=== PATIENT | male | born 1935 | race Caucasian/White ===

== ENCOUNTER → 2017-07-13 09:36 | Outpatient (CLI) | payer MEDICARE, SELFPAY ==
[2017-07-13 11:27] LABS: AST(SGOT) 17 U/L (15-37); Alanine Aminotransfer ALT/SGPT 20 U/L (16-61); Albumin, Serum 3.7 g/dL (3.2-5.0); Alkaline Phosphatase 77 U/L (45-117); Anion Gap 9 (5-15); BUN 18 mg/dL (7-18); BUN/Creat Ratio 17.6 RATIO (10-20); Calcium,Total 8.8 mg/dL (8.5-10.1); Chloride 107 mmol/L (98-107); Cholesterol 108 mg/dL (200); Creatinine, Serum 1.02 mg/dL (0.70-1.30); EST Glomerular Filtration Rate 74 mL/min (>60); Est Glom Filt Rate - Afr Amer 90 mL/min (>60); Globulin 3.8 g/dL (2.2-4.2); Glucose 83 mg/dL (74-106); High Density Lipoprotein 52 mg/dL; Potassium 4.3 mmol/L (3.5-5.1); Protein, Total 7.5 g/dL (6.4-8.2); Sodium Level 144 mmol/L (136-145); Triglycerides 79 mg/dL; Very Low Density Lipoprotein 16 mg/dL (5-40)
== END ==
PROVIDERS: Family Provider Family Medicine; PCP Family Medicine
DX: I25.10 Atherosclerotic heart disease of native coronary artery without angina pectoris (principal)
CPT/HCPCS: 36415; 80053; 80061

== ENCOUNTER → 2018-05-31 07:12 | Outpatient (CLI) | payer MEDICARE, SELFPAY ==
[2015-09-11 10:55] VITALS: BMI 24.0
[2018-05-31 08:13] LABS: ALB/GLOB Ratio 1.1 RATIO (0.9-2.4); AST(SGOT) 31 U/L (15-37); Alanine Aminotransfer ALT/SGPT 50 U/L (16-61); Albumin, Serum 3.7 g/dL (3.2-5.0); Alkaline Phosphatase 82 U/L (45-117); Anion Gap 3 (5-15); BUN 13 mg/dL (7-18); BUN/Creat Ratio 11.9 RATIO (10-20); Chloride 109 mmol/L (98-107); Cholesterol 133 mg/dL (200); Creatinine, Serum 1.09 mg/dL (0.70-1.30); EST Glomerular Filtration Rate 69 mL/min (>60); Est Glom Filt Rate - Afr Amer 83 mL/min (>60); Globulin 3.5 g/dL (2.2-4.2); Glucose 95 mg/dL (74-106); High Density Lipoprotein 53 mg/dL; Potassium 4.2 mmol/L (3.5-5.1); Protein, Total 7.2 g/dL (6.4-8.2); Sodium Level 140 mmol/L (136-145); Triglycerides 85 mg/dL; Very Low Density Lipoprotein 17 mg/dL (5-40)
== END ==
PROVIDERS: Family Provider Family Medicine; PCP Family Medicine
DX: I25.10 Atherosclerotic heart disease of native coronary artery without angina pectoris (principal)
CPT/HCPCS: 36415; 80053; 80061

== ENCOUNTER → 2019-09-17 07:06 | Outpatient (CLI) | payer MEDICARE, SELFPAY ==
[2019-09-17 08:28] LABS: Anion Gap 4 (5-15); BUN 22 mg/dL (7-18); BUN/Creat Ratio 19.8 RATIO (10-20); Calcium,Total 9.1 mg/dL (8.5-10.1); Chloride 107 mmol/L (98-107); Creatinine, Serum 1.11 mg/dL (0.70-1.30); EST Glomerular Filtration Rate 67 mL/min (>60); Est Glom Filt Rate - Afr Amer 81 mL/min (>60); Glucose 95 mg/dL (74-106); Potassium 3.8 mmol/L (3.5-5.1); Sodium Level 141 mmol/L (136-145)
== END ==
PROVIDERS: PCP Family Medicine
DX: I10 Essential (primary) hypertension (principal)
CPT/HCPCS: 36415; 80048

== ENCOUNTER → 2021-05-22 08:04 | Outpatient (CLI) | payer MEDICARE, SELFPAY ==
[2021-05-22 08:54] LABS: ALB/GLOB Ratio 1.1 RATIO (0.9-2.4); AST(SGOT) 21 U/L (15-37); Alanine Aminotransfer ALT/SGPT 26 U/L (16-61); Alkaline Phosphatase 66 U/L (45-117); Anion Gap 4 (5-15); BUN 17 mg/dL (7-18); BUN/Creat Ratio 15.2 RATIO (10-20); Calcium,Total 8.8 mg/dL (8.5-10.1); Chloride 106 mmol/L (98-107); Creatinine, Serum 1.12 mg/dL (0.70-1.30); EST Glomerular Filtration Rate 66 mL/min (>60); Est Glom Filt Rate - Afr Amer 80 mL/min (>60); Globulin 3.6 g/dL (2.2-4.2); Glucose 115 mg/dL (74-106); Protein, Total 7.6 g/dL (6.4-8.2); Sodium Level 138 mmol/L (136-145)
== END ==
PROVIDERS: PCP Family Medicine
DX: I25.10 Atherosclerotic heart disease of native coronary artery without angina pectoris (principal)
CPT/HCPCS: 36415; 80053

== ENCOUNTER → 2021-10-23 | Outpatient (CLI) | payer MEDICARE, SELFPAY ==
[2021-10-23 07:05] LABS: Hemoglobin 14.9 g/dL (13.0-16.5); Mean Corp Hgb Conc 33.1 g/dL (32-36); Mean Corpuscular Volume 90.5 fL (80-94); Mean Platelet Vol. 10.3 fl (6.2-12.0); Platelet Count 220 K/mm3 (150-450); RBC Distribution Width CV 13.1 % (11.6-14.6); RBC Distribution Width SD 43.8 fl (35.1-43.9); Red Blood Count 4.97 M/mm3 (4.6-6.2); White Blood Count 10.4 K/mm3 (4.4-11.0)
--- NOTE | 2021-10-23 07:05 | RAD_ITS ---
STUDY: CHEST SERIES--2 VIEWS OF 0711 HOURS 0711 HOURS REASON FOR EXAM: 86-year-old male with a pre-operative chest x-ray series. TECHNIQUE: A standard PA and lateral chest x-ray series was performed per protocol. COMPARISON: 09/11/2015. FINDINGS: Mild demineralization. No other osseous abnormalities. Mild cardiomegaly with a left ventricular cardiac configuration. No interval change in size and configuration of the heart since previous study of 09/03/2015. Single lead pacemaker with distal lead in the region of the intraventricular septum, unchanged since 09/11/2015. No evidence of pulmonary infiltrates, atelectasis, effusion, or pulmonary mass lesions. No pneumonia, pneumonitis or bronchitis. No subdiaphragmatic abnormalities. RAD/Chest PA and Lateral IMPRESSION: 1. No significant interval change since the previous study of 09/03/2015. 2. Mild cardiomegaly with a left ventricular cardiac configuration. 3. Single lead pacemaker with distal lead in the region of the interventricular septum, unchanged since 09/03/2015.. 4. No other active cardiopulmonary disease. 5. Mild demineralization with otherwise normal osseous structures. Electronically Signed: Sai Hollis MD at 1:51 EDT ,
[2021-10-23 07:29] LABS: Anion Gap 5 (5-15); BUN 24 mg/dL (7-18); BUN/Creat Ratio 19.5 RATIO (10-20); Calcium,Total 9.2 mg/dL (8.5-10.1); Chloride 105 mmol/L (98-107); Creatinine, Serum 1.23 mg/dL (0.70-1.30); EST Glomerular Filtration Rate 59 mL/min (>60); Est Glom Filt Rate - Afr Amer 72 mL/min (>60); Glucose 111 mg/dL (74-106); Potassium 4.3 mmol/L (3.5-5.1); Sodium Level 139 mmol/L (136-145)
== END | disposition home or self-care (01) ==
PROVIDERS: PCP Family Medicine
DX: Z01.818 Encounter for other preprocedural examination (principal); Z95.0 Presence of cardiac pacemaker
CPT/HCPCS: 36415; 71046; 80048; 85027

== ENCOUNTER → 2022-08-18 | Outpatient (CLI) | payer MEDICARE, SELFPAY ==
[2022-08-18 08:42] LABS: Cholesterol 118 mg/dL (200); High Density Lipoprotein 58 mg/dL; Triglycerides 74 mg/dL; Very Low Density Lipoprotein 15 mg/dL (5-40)
== END | disposition home or self-care (01) ==
PROVIDERS: PCP Family Medicine
DX: E78.5 Hyperlipidemia, unspecified (principal)
CPT/HCPCS: 36415; 80061

== ENCOUNTER → 2022-08-25 | Outpatient (CLI) | payer MEDICARE, SELFPAY ==
[2022-08-25 12:39] LABS: AST(SGOT) 25 U/L (15-37); Alanine Aminotransfer ALT/SGPT 36 U/L (16-61); Albumin, Serum 3.8 g/dL (3.2-5.0); Alkaline Phosphatase 76 U/L (45-117); Anion Gap 5 (5-15); BUN 18 mg/dL (7-18); Calcium,Total 9.4 mg/dL (8.5-10.1); Chloride 106 mmol/L (98-107); Creatinine, Serum 1.06 mg/dL (0.70-1.30); EST Glomerular Filtration Rate 70 mL/min (>60); Est Glom Filt Rate - Afr Amer 85 mL/min (>60); Globulin 3.7 g/dL (2.2-4.2); Glucose 93 mg/dL (74-106); Potassium 4.1 mmol/L (3.5-5.1); Protein, Total 7.5 g/dL (6.4-8.2); Sodium Level 139 mmol/L (136-145)
== END | disposition home or self-care (01) ==
LOC: BIMLAB 09:56
PROVIDERS: PCP Family Medicine; Visit Provider Family Medicine
DX: I50.9 Heart failure, unspecified (principal)
CPT/HCPCS: 36415; 80053

== ENCOUNTER → 2023-09-21 | Outpatient (CLI) | payer MEDICARE, SELFPAY ==
[2023-09-21 12:19] LABS: Absolute Lymphocyte Count 4.33 X10^3/uL (0.83-4.51); Absolute Neutrophil Count 4.8 X10^3/uL (2.0-7.7); Basophil# 0.07 X10^3/uL; Basophil% 0.7 % (0-1); Hematocrit 48.2 % (40-54); Hemoglobin 14.8 g/dL (13.0-16.5); Lymphocyte # 4.33 X10^3/ul (0.83-4.51); Mean Corp Hgb Conc 30.7 g/dL (32-36); Mean Corpuscular Hgb 27.9 pg (27.0-32.0); Mean Corpuscular Volume 90.9 fL (80-94); Mean Platelet Vol. 11.6 fl (6.2-12.0); Monocyte% 6.9 % (0-10); NRBC Flagged by Analyzer 0 % (0-5); Neutrophil # 4.75 X10^3/uL (2.7-7.7); Neutrophil % 47.1 % (47-70); Platelet Count 240 K/mm3 (150-450); RBC Distribution Width CV 14.2 % (11.6-14.6); RBC Distribution Width SD 47.7 fl (35.1-43.9); White Blood Count 10.1 K/mm3 (4.4-11.0)
[2023-09-21 12:43] LABS: AST(SGOT) 18 U/L (15-37); Alanine Aminotransfer ALT/SGPT 25 U/L (16-61); Albumin, Serum 3.7 g/dL (3.2-5.0); Alkaline Phosphatase 88 U/L (45-117); Anion Gap 4 (5-15); BUN 16 mg/dL (7-18); BUN/Creat Ratio 13.9 RATIO (10-20); Calcium,Total 9.3 mg/dL (8.5-10.1); Chloride 107 mmol/L (98-107); Cholesterol 121 mg/dL (200); Creatinine, Serum 1.15 mg/dL (0.70-1.30); EST Glomerular Filtration Rate 64 mL/min (>60); Est Glom Filt Rate - Afr Amer 77 mL/min (>60); Globulin 3.7 g/dL (2.2-4.2); Glucose 97 mg/dL (74-106); High Density Lipoprotein 45 mg/dL; Potassium 4.5 mmol/L (3.5-5.1); Protein, Total 7.4 g/dL (6.4-8.2); Sodium Level 138 mmol/L (136-145); Triglycerides 84 mg/dL; Very Low Density Lipoprotein 17 mg/dL (5-40)
== END | disposition home or self-care (01) ==
LOC: BIMLAB 09:14
PROVIDERS: PCP Family Medicine; Referring Provider Family Medicine; Visit Provider Family Medicine
DX: I50.9 Heart failure, unspecified (principal)
CPT/HCPCS: 36415; 80053; 80061; 85025

== ENCOUNTER 2023-11-28 08:07 | Emergency (ER) | payer MEDICARE, SELFPAY ==
[2023-11-28 08:08] VITALS: BP 166/86; PULSE 77; RESP 16; TEMP 37; O2SAT 98; BMI 22.3
--- NOTE | 2023-11-28 08:22 | EX.ED.GUMALE ---
HPI History of Present Illness Chief Complaint: Complaint Informant: patient and spouse/S.O. Narrative Narrative: 88-year-old male presenting with difficulty urinating. He feels like he cannot empty and as a result is going more frequently. This occurred 2 days ago and then again overnight along with nocturia. No dysuria, hematuria, fevers, chills, nausea, vomiting, or discomfort in his back. He states he just feels like his bladder is full and he needs to go. Never had this before. No history of prostate problems. Feeling well otherwise. PFSH PFS Medical History Cardiac defibrillator in place Stroke Home Medications ?Medication ?Instructions ?Recorded ?Last Taken ?Type aspirin 81 mg chewable tablet 81 mg PO DAILY@0800 09/11/15 Unknown History nitroglycerin 0.4 mg sublingual 0.4 mg sublingual Q5M PRN Chest 09/11/15 Unknown History tablet Pain simvastatin 40 mg tablet 40 mg PO QHS 09/11/15 Unknown History spironolactone 25 mg tablet 12.5 mg PO DAILY 09/11/15 Unknown History losartan 50 mg tablet mg PO 08/25/22 Unknown History hydroxyzine HCl 25 mg tablet 25 mg PO QHS #10 tabs 07/05/23 Unknown Rx tamsulosin 0.4 mg capsule (Flomax) 0.4 mg PO DAILY #30 caps 11/28/23 Unknown Rx Allergy/AdvReac Type Severity Reaction Status Date / Time No Known Allergies Allergy Verified 11/28/23 08:07 Family History Mother CAD (coronary artery disease) Grandfather CAD (coronary artery disease) Brother Prostate cancer Sister Colon cancer Sister Throat cancer Surgical History H/O cataract removal with insertion of prosthetic lens Social History adopted: No household members: spouse housing: house number of children: 1 current occupational status: retired pets and animals: No Smoking Status: Never smoker second hand exposure: No alcohol intake: current alcohol intake frequency: holidays/special occasions only substance use type: does not use caffeine: Yes (1-2) Type: coffee what type of physical activity do you participate in: walking frequency: daily seatbelt use: always do you feel safe at home: Yes ROS ROS ED Constitutional Constitutional ED: Denies chills or fever(s) Eyes Eyes: Denies change in vision or diplopia ENT ENT ED: Denies rhinorrhea or sore throat Cardiovascular Cardiovascular: Denies chest pain or palpitations Respiratory/Chest Respiratory/Chest: Denies cough or dyspnea Gastrointestinal Gastrointestinal: Denies abdominal pain, diarrhea, nausea or vomiting Genitourinary Genitourinary ED: Reports as per HPI, difficulty urinating and urinary frequency; Denies dysuria, hematuria, scrotal pain or scrotal swelling Musculoskeletal Musculoskeletal: Denies back pain or neck pain Integumentary Denies abscess or rash Neurologic Neurologic: Denies headache(s), paresthesias or weakness Psychiatric Psychiatric: Denies anxiety or suicidal thoughts EXAM Physical Exam Const Vital Signs: 11/28/23 08:08 Temperature 98.6 F Temperature Source Oral Pulse Rate 77 Respiratory Rate 16 Blood Pressure 166/86 H Blood Pressure Mean 112 Pulse Ox 98 Oxygen Delivery Method Room Air Positive well nourished and well developed General Appearance ED: well developed and NAD HEENT Reports moist mucous membranes normocephalic and atraumatic Eyes PERRL and EOMs intact bilaterally Neck full ROM and supple Resp normal respiratory effort and clear to auscultation bilaterally Cardio regular rate, regular rhythm and no murmurs GI non-distended GI Narrative: Some discomfort with palpation over suprapubic area/bladder otherwise benign abdomen. Auscultation: normoactive bowel sounds Palpation: soft; Negative for guarding Back/Spine no CVA tenderness General Back: other FROM Extremity normal to inspection General Extremety ED: Negative for edema, pulses abnormal or tenderness General Extremity: Negative for edema or pulses abnormal Neuro oriented x3, CN's II-XII intact bilaterally and no sensory deficits noted Sensorium / Orientation: awake and alert Motor Exam: strength 5/5 throughout Skin no rashes or lesions noted and no wounds MDM MDM MDM Narrative Medical decision making narrative: Pretreated with Uro-Jet, through the urethral meatus and even finding a because of the patient's foreskin which they stated they were not able to retract. I examined the patient's genitourinary area, penis is nontender, he is uncircumcised and not able to retract the foreskin to even visualize the glans. Therefore it was not forced so as to not cause a paraphimosis. There is no discharge and area is nontender. Nursing was able to get a catheter in and they state that there was a pop when he went through the urethral meatus but not necessarily resistance after that in the area of the prostate. The patient feels much better. He has a normal urinalysis without signs of acute infection. I discussed with Dr. muñiz with urology, who still advises putting the patient on Flomax and have him follow-up in the next 2 weeks, patient given a leg bag and these instructions. Lab Data Attestation: I reviewed the patient's lab results. 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 (urology) Discharge Plan Triage Chief Complaint: Complaint ED Provider: Ye Rogers Dx/Rx/DC Orders Clinical Impression: Acute urinary retention, Acquired phimosis of penis Instructions: ED Agarwal Catheter, Care, ED Phimosis, ED Urinary Retention, Male Prescriptions: New tamsulosin [Flomax] 0.4 mg capsule 0.4 mg PO DAILY Qty: 30 0RF No Action losartan 50 mg tablet PO hydroxyzine HCl 25 mg tablet 25 mg PO QHS Qty: 10 0RF spironolactone 25 MG tablet 12.5 mg PO DAILY simvastatin 40 MG tablet 40 mg PO QHS nitroglycerin 0.4 MG tablet 0.4 mg sublingual Q5M PRN (Reason: Chest Pain) aspirin 81 MG tablet,chewable 81 mg PO DAILY@0800 Primary Care Provider: Abdifatah Beltran Referrals: Abdifatah Beltran DO [Primary Care Provider] - Mark Muñiz MD [Med Staff - Active Staff] - (call for follow up appt) Activity Restrictions/Additional Instructions: Urology recommends that you be seen within 2 weeks, call for an appointment. Print Language: Mauritian Disposition Disposition: Home, Self Care
[2023-11-28 09:09] LABS: Bacteria 0 SEEN /hpf (None Seen); Mucous, Urine 0 SEEN /hpf (<or=2+); Squamous Epithelial Cells - UA 0 SEEN /hpf (0-5); White Blood Cells 0 SEEN /hpf (0-5)
[2023-11-28 09:18] LABS: Color, Urine Yellow (Yellow); Glucose, Dipstick Normal (Normal); Ketone-Dipstick Negative (Negative); Leukocyte Esterase-Dipstick Negative /ul (Negative); Nitrite-Dipstick Negative (Negative); Occult Blood-Urine 25 /ul (Negative); Protein-Dipstick Negative (Negative); Urine Bilirubin Dipstick Negative (Negative); Urine Clarity Clear (Clear); Urine Urobilinogen Normal (Normal)
[2023-11-28] MEDS: Lidocaine Jelly 2% 20 ML Syringe (URO-JET) 1 APPLIC TOPICAL (09:25)
[2023-11-28 09:27] LABS: Red Blood Cells-Urine 0-5 SEEN /hpf (0-5)
[2023-11-28 10:07] VITALS: BP 160/70; PULSE 70; RESP 18; O2SAT 97
[2023-11-28 11:25] VITALS: BP 158/68; PULSE 70; RESP 18; TEMP 36.6; O2SAT 99
== END 2023-11-28 11:30 | disposition home or self-care (01) ==
LOC: ED 09:19
PROVIDERS: Emergency Provider Emergency Medicine; PCP Family Medicine; Visit Provider Emergency Medicine
DX: R33.9 Retention of urine, unspecified (principal); N47.1 Phimosis; Z86.73 Personal history of transient ischemic attack (TIA), and cerebral infarction without residual deficits
CPT/HCPCS: 51702; 81001; 99283

== ENCOUNTER → 2023-12-20 | Outpatient (CLI) | payer MEDICARE, SELFPAY | END | disposition home or self-care (01) | LOC: LABSPEC 16:27 | PROVIDERS: PCP Family Medicine; Referring Provider Nurse Practitioner; Visit Provider Nurse Practitioner | DX: R33.8 Other retention of urine (principal) | CPT/HCPCS: 87086 ==

== ENCOUNTER → 2024-01-04 | Outpatient (CLI) | payer MEDICARE, SELFPAY ==
--- NOTE | 2024-01-04 16:36 | CT_ITS ---
STUDY: CT ABDOMEN AND PELVIS WITH AND WITHOUT CONTRAST REASON FOR EXAM: Male, 88 years old.GROSS HEMATURIA/ RETENTION OF URINE/ BPH W/LOWER UTI SX painful urination, urinary retention, penile injury while cathing? RADIATION DOSAGE (If Supplied By Facility): CTDIvol = ( 12.32 ) mGy, DLP = ( 785.52 ) mGycm TECHNIQUE: Transaxial images were obtained from the dome of the diaphragm to the symphysis pubis without oral contrast. ml of 100mL Isovue-300 contrast was administered. Sagittal and coronal images were reconstructed. Individualized dose optimization techniques were used for this CT. COMPARISON: None. FINDINGS: The visualized lung bases are unremarkable. The visualized portions of the heart are within normal limits. Normal liver. The gallbladder is contracted. Normal spleen. Normal pancreas. Normal bilateral adrenal glands. Normal right kidney. There is moderate cortical atrophy of the left kidney, consistent with chronic medical renal disease. No radiopaque kidney stones are present. No demonstrated hydronephrosis or hydroureter. No renal masses or cysts are present. Normal visualized stomach. Normal small intestine. There are multiple colonic diverticula consistent with diverticulosis. The appendix is visualized and appears normal. There is diffuse atherosclerotic calcification of the abdominal aorta, without a demonstrated aneurysm. Normal inferior vena cava. Normal retroperitoneum. Normal urinary bladder. The prostate gland is markedly enlarged at 6.86 x 6.64 cm. The prostate gland is also diffusely heterogeneous without visualization of a focal lesion by CT criteria. This can be evaluated with MRI of the prostate gland with and without contrast if clinically indicated. Correlation with PSA also recommended. The apex of the prostate gland herniated into the base of the bladder. No bladder masses or stones are present. Normal abdominal wall. There are diffuse degenerative changes of the visualized lumbar spine. Healed left hip fracture with a dynamic compression cortical plate screw construct. CT/CT Abd/Pelvis W/WO Contrast IMPRESSION: 1. The prostate gland is markedly enlarged at 6.86 x 6.64 cm. The prostate gland is also diffusely heterogeneous without visualization of a focal lesion by CT criteria. This can be evaluated with MRI of the prostate gland with and without contrast if clinically indicated. Correlation with PSA also recommended. The apex of the prostate gland herniated into the base of the bladder. No bladder masses or stones are present. Electronically Signed: Emil Salgado MD at 11:13 [facility] ,
[2024-01-04 17:01] LABS: CREATININE FINGERSTICK < 1.0 mg/dL (0.70-1.30); EGFR FINGERSTICK > 60.0000 mL/min (>60)
== END | disposition home or self-care (01) ==
LOC: CT 16:33
PROVIDERS: PCP Family Medicine; Referring Provider Urology; Visit Provider Urology
DX: N40.1 Benign prostatic hyperplasia with lower urinary tract symptoms (principal); R33.8 Other retention of urine; R31.0 Gross hematuria
CPT/HCPCS: 74178; Q9967

== ENCOUNTER 2024-02-01 07:42 | Day surgery (SDC) | payer MEDICARE, SELFPAY ==
[2024-02-01] VITALS (8 sets, daily range): BP systolic 91–110; BP diastolic 50–60; PULSE 53–65; RESP 16–18; TEMP 36.1–36.7; O2SAT 94–100; BMI 22.8
[2024-02-01] MEDS: 0.9% Normal Saline (1000mL) 1,000 ML 15 ML IV (08:17)
--- NOTE | 2024-02-01 08:27 | PCM.PRE.AN2 ---
ASA Classification* ASA Classification ASA Classification: 3 Assessment & Plan Anesthesia* Anesthesia Assessment Anesthesia Assessment: Discussed sedation and/or anesthesia options, risks, benefits, and alternatives with patient/parents/legal guardian/POA. Questions invited. The patient/parents/legal guardian/POA seems to understand and agrees to proceed with anesthesia plan. Reviewed the physical assessment, medical history, allergy history and patient home medications list prior to surgery/procedure/anesthetic and documented any changes. Performed airway and anesthesia risk assessments. Anesthesia Type Anesthesia Type: General Anesthesia Focused Assessment* Temperature: 97.5 F Pulse Rate: 61 Blood Pressure: 109/60 Respiratory Rate: 16 Pulse Ox: 100 Airway Assessment Mouth opens: >3 cm Mallampati Score: II Focused Labs Anesthesia Preop lab: CBC WBC 10.1 K/mm3 (4.4-11.0) 09/21/23 09:14 RBC 5.30 M/mm3 (4.6-6.2) 09/21/23 09:14 Hgb 14.8 g/dL (13.0-16.5) 09/21/23 09:14 Hct 48.2 % (40-54) 09/21/23 09:14 Plt Count 240 K/mm3 (150-450) 09/21/23 09:14 CHEMISTRY Potassium 4.5 mmol/L (3.5-5.1) 09/21/23 09:14 Sodium 138 mmol/L (136-145) 09/21/23 09:14 Magnesium 2.2 mg/dL (1.8-2.4) 11/26/11 10:58 BUN 16 mg/dL (7-18) 09/21/23 09:14 Creatinine 1.15 mg/dL (0.70-1.30) 09/21/23 09:14 Glucose 97 mg/dL (74-106) 09/21/23 09:14 COAG Pre-Assessment Diagnosis/Proposed Procedure Planned Operative Procedure(s): CIRCUMCISION,CYSTO,DILATION MEATUS Anesthesia History Anesthesia History - home health clinician: Anesthesia History - home health clinician Hx Hospitalization No 01/19/24 11:30 Any Problems With Anesthesia No 01/19/24 11:30 Cholinesterase deficiency No 01/19/24 11:30 You/Your Family Experience No 01/19/24 11:30 fever (hyperthermia) with Relationship Recent Exposure to Contagious No 02/01/24 08:10 Disease Does patient have nerve No 01/19/24 11:30 stimulator Patient instructed to have device shut off --Does patient have Pacemaker Yes 02/01/24 08:10 or ICD? When Was Last Pacemaker Check QUESTION #4 FULL TEXT: You/Your Family Experience fever (hyperthermia) with Anesthesia Last Oral Intake Last Oral intake: Last Oral Intake NPO since 06:00 02/01/24 08:10 Meds taken in AM with sips of Yes 02/01/24 08:10 water? Meds patient instructed to SEE MAR 02/01/24 08:10 take am of surgery PONV PONV - home health clinician: PONV - home health clinician Female No 01/19/24 11:30 HX of Motion Sickness No 01/19/24 11:30 HX of N/V After Surgery No 01/19/24 11:30 Non-Smoker Yes 01/19/24 11:30 Duration of Surgery greater Yes 01/19/24 11:30 than 60 minutes Number of Risk Factors 2 01/19/24 11:30 PONV Score Moderate Risk 01/19/24 11:30 Height & Weight Height & Weight: Anesthesia: Height & Weight Height 5 ft 6 in 02/01/24 08:10 Weight: 64.41 kg 02/01/24 08:10 Body Mass Index (BMI) 22.8 02/01/24 08:10 Respiratory Assessment Respiratory Assessment - home health clinician: Respiratory Tract Infection Hx - home health clinician Hx Respiratory Tract Infection No 01/19/24 11:30 STOP Sleep Apnea STOP Sleep Apnea - home health clinician: STOP Sleep Apnea - home health clinician Hx Hypertension Yes: CONTROLLED WITH MED 01/19/24 11:30 Hx Sleep Apnea No 01/19/24 11:30 CPAP BIPAP Do you snore loudly (louder No 01/19/24 11:30 than talking or can be heard Do you often feel tired/ No 01/19/24 11:30 fatigued/ sleepy during daytime? Has anyone observed you stop No 01/19/24 11:30 breathing during sleep? STOP Results Negative 01/19/24 11:30 QUESTION #5 FULL TEXT : Do you snore loudly (louder than talking or can be heard through closed doors)? Tobacco Use History Tobacco Use History - home health clinician: Tobacco Use History - home health clinician Tobacco Use Smoking Status Never smoker 01/19/24 11:30 Hx Tobacco Use No 01/19/24 11:30 Years Smoking Packs Smoked per Day Smoking Cessation Date was within the last 15 years Hx Smoking Cessation Date Hx Smoking Cessation Counseling Hematologic Medial History Hematologic Hx - home health clinician: Hematologic Medical Hx - architecture technician Hx of Blood Transfusion No 01/19/24 11:30 Hx of Transfusion in last 3 No 01/19/24 11:30 Months Date of Last Transfusion (if within last 3 months) Ever experience any problems No 01/19/24 11:30 with transfusion(s)? Specify any problems Hx of Preganancy in last 3 N/A 01/19/24 11:30 Months Nurse Filling Out Transfusion DSCHRIBER 01/19/24 11:30 & Questions: Date: 01/19/24 01/19/24 11:30 Time: 11:31 01/19/24 11:30 Patient unable to answer at this time (ie. confused, unrespo /Reproduction History /Reproductive History - home health clinician: /Reproductive Hx- home health clinician Hx Now No 01/19/24 11:30 Gestational Age (in weeks): EDC: Hx Hx Para Hx Section SAB No 01/19/24 11:30 Active Medications Active Medications: Current Medications Generic Name Dose Route Start Last Admin Trade Name Freq PRN Reason Stop Dose Admin Cefazolin Sodium 2 gm/ N/A 20 mls @ 400 mls/hr 02/01/24 10:00 IV 02/01/24 10:02 PREOP ONE Sodium Chloride 1,000 mls @ 15 mls/hr 02/01/24 08:00 02/01/24 08:17 IV 02/06/24 21:19 15 mls/hr .Q48H CATIA Administration Protocol PFSH Medical History Loss of hearing Wears glasses Wears dentures Alcohol use High cholesterol Easy bruising Dietary restriction Non-smoker Hypertension History of stress test Cardiology follow-up encounter History of CHF (congestive heart failure) History of heart attack TIA (transient ischemic attack) Hx of fracture of hip Cardiac defibrillator in place Home Medications ?Medication ?Instructions ?Recorded ?Last Taken ?Type aspirin 81 mg chewable tablet 81 mg PO DAILY@0800 09/11/15 01/24/24 History nitroglycerin 0.4 mg sublingual 0.4 mg sublingual Q5M PRN Chest 09/11/15 Unknown History tablet Pain simvastatin 40 mg tablet 40 mg PO QHS 09/11/15 Unknown History spironolactone 25 mg tablet 12.5 mg PO DAILY 09/11/15 Unknown History losartan 50 mg tablet 50 mg PO DAILY 08/25/22 02/01/24 History carvedilol 6.25 mg tablet 6.25 mg PO BID 01/19/24 02/01/24 06:00 History finasteride 5 mg tablet 5 mg PO DAILY 01/19/24 Unknown History tamsulosin 0.4 mg capsule (Flomax) 0.4 mg PO BID 01/19/24 02/01/24 History Allergy/AdvReac Type Severity Reaction Status Date / Time No Known Allergies Allergy Verified 02/01/24 08:09 Family History Mother CAD (coronary artery disease) Grandfather CAD (coronary artery disease) Brother Prostate cancer Sister Colon cancer Sister Throat cancer Surgical History History of coronary artery stent placement History of cystoscopy Hx of right cataract extraction Hx of left cataract extraction Social History adopted: No household members: spouse housing: house number of children: 1 current occupational status: retired pets and animals: No Smoking Status: Never smoker second hand exposure: No alcohol intake: current alcohol intake frequency: holidays/special occasions only substance use type: does not use caffeine: Yes (1-2) Type: coffee what type of physical activity do you participate in: walking frequency: daily seatbelt use: always do you feel safe at home: Yes Review of Systems (Anesthesia) ROS Narrative System reviewed and no additional complaints, except as documented.
--- NOTE | 2024-02-01 10:02 | HP.PCM_ITS ---
HPI - General General Date of Service: 02/01/24 Chief Complaint: Phimosis HPI Narrative EFRAÍN MEREDITH, is a 88 M who presents for a circumcision for phimosis. [facility] Medical History Loss of hearing Wears glasses Wears dentures Alcohol use High cholesterol Easy bruising Dietary restriction Non-smoker Hypertension History of stress test Cardiology follow-up encounter History of CHF (congestive heart failure) History of heart attack TIA (transient ischemic attack) Hx of fracture of hip Cardiac defibrillator in place Home Medications ?Medication ?Instructions ?Recorded ?Last Taken ?Type aspirin 81 mg chewable tablet 81 mg PO DAILY@0800 09/11/15 01/24/24 History nitroglycerin 0.4 mg sublingual 0.4 mg sublingual Q5M PRN Chest 09/11/15 Unknown History tablet Pain simvastatin 40 mg tablet 40 mg PO QHS 09/11/15 Unknown History spironolactone 25 mg tablet 12.5 mg PO DAILY 09/11/15 Unknown History losartan 50 mg tablet 50 mg PO DAILY 08/25/22 02/01/24 History carvedilol 6.25 mg tablet 6.25 mg PO BID 01/19/24 02/01/24 06:00 History finasteride 5 mg tablet 5 mg PO DAILY 01/19/24 Unknown History tamsulosin 0.4 mg capsule (Flomax) 0.4 mg PO BID 01/19/24 02/01/24 History Allergy/AdvReac Type Severity Reaction Status Date / Time No Known Allergies Allergy Verified 02/01/24 08:09 Family History Mother CAD (coronary artery disease) Grandfather CAD (coronary artery disease) Brother Prostate cancer Sister Colon cancer Sister Throat cancer Surgical History History of coronary artery stent placement History of cystoscopy Hx of right cataract extraction Hx of left cataract extraction Social History adopted: No household members: spouse housing: house number of children: 1 current occupational status: retired pets and animals: No Smoking Status: Never smoker second hand exposure: No alcohol intake: current alcohol intake frequency: holidays/special occasions only substance use type: does not use caffeine: Yes (1-2) Type: coffee what type of physical activity do you participate in: walking frequency: daily seatbelt use: always do you feel safe at home: Yes Vital Signs Vital Signs Vital Signs: 02/01/24 08:10 02/01/24 08:10 02/01/24 08:28 Temperature 97.5 F L 97.5 F L Temperature Source Temporal Pulse Rate 61 61 Respiratory Rate 16 16 Respiratory Pattern Normal Blood Pressure 109/60 109/60 Blood Pressure Mean 76 Blood Pressure Source Monitor Blood Pressure Position Semi-Fowlers Blood Pressure Location Right Arm Pulse Ox 100 100 Oxygen Delivery Method Room Air Weight Weight: 64.41 kg Body Mass Index (BMI) 22.8
[2024-02-01] MEDS: Cefazolin 2 GM in Syringe IV (10:37)
[2024-02-01] MEDS: Bupivacaine Mpf 0.5% 30 ML VIAL (10:47)
--- NOTE | 2024-02-01 11:19 | DCINST_ITS ---
Discharge Instructions Diet Discharge Diet: No restrictions DC O2, CPAP, BIPAP needs Additional Home O2 Discharge instructions: No Dressing / Incision Discharge Activity: Return to Normal Activity and May Not Drive (while taking narcotic pain medications.) Dressing / Incision Call your doctor if you observe: Fever of 101 or Higher Cleanse incision/area with: Soap & Water Additional Dressing/Incision Instructions:: okay to remove dressing tomorrow Follow Up Care Please Follow Up With: Mark Muñiz MD When: Call [phone] for an appointment Test Results: Test results from this visit will be discussed in further detail at your follow- up appointment, if applicable. Discharge Plan Admission Attending Provider: Mark Muñiz Primary Care Provider: Abdifatah Beltran Instructions Print Language: Icelandic Discharge Orders/Prescriptions Prescriptions: No Action losartan 50 mg tablet 50 mg PO DAILY spironolactone 25 MG tablet 12.5 mg PO DAILY simvastatin 40 MG tablet 40 mg PO QHS nitroglycerin 0.4 MG tablet 0.4 mg sublingual Q5M PRN (Reason: Chest Pain) aspirin 81 MG tablet,chewable 81 mg PO DAILY@0800 finasteride 5 mg tablet 5 mg PO DAILY carvedilol 6.25 mg tablet 6.25 mg PO BID tamsulosin [Flomax] 0.4 mg capsule 0.4 mg PO BID Referrals / Follow Up: Abdifatah Beltran DO [Primary Care Provider] - Disposition Disposition (needs filled in before D/C Order can be placed): Home, Self Care
--- NOTE | 2024-02-01 11:19 | PCM.OPRPT ---
Operative Report (Standard) Operative Information Date of Procedure: 02/01/24 Pre-Operative Diagnosis: Phimosis and meatal stenosis Post-Operative Diagnosis: The same Surgery/Procedure Performed: Circumcision and dilation of meatus and flexible cystoscopy travel registered nurse oncology: No Type of Anesthesia: General RN Documented Start/Stop Times: Operation Date: 02/01/24 10:00 Case Time Into Pre-Op 02/01/24 07:57 Out of Pre-Op 02/01/24 10:33 Anesthesia Start 02/01/24 10:37 Into Room 02/01/24 10:37 Procedure Start 02/01/24 10:47 Procedure End 02/01/24 11:17 Procedure Start Time: 10:47 Procedure Stop Time: 11:20 Select all DRAINS/GRAFTS/IMPLANTS that apply: None Estimated Blood Loss: 2 cc Specimen collected: No Description of surgery: Patient was taken back to the operating room after smooth induction of a MAC local he was placed upon on the table we then prepped and draped the penis in usual sterile fashion I did a block circumferentially around the penis with Marcaine. I then marked out incision all the way around the foreskin dissected the foreskin off the penis and glans and it was very phimotic and tight. I then the meatus was identified and the meatus is supertight started off with a 12 Maltese Dragan dilators and dilated up to 32 Maltese. I then a cystoscopy was done entire length urethra was normal and clear and open the sphincter was intact the prostate was enlarged with hypertrophy and enlarged prostate the bladder was normal no tumors or stones within the bladder minimal trabeculation. I then removed the cystoscope and then completed the circumcision using interrupted 3-[address] the [address] around the penis. Patient's anesthetic was reversed and dressings were placed on the penis and his takeback to PACU in good condition he can follow-up in a few weeks for checkup Surgical Findings: Circumcision completed meatus dilated up to 32 Maltese cystoscopy confirms normal channel no strictures prostate and large bladder is normal Complications Complications: No Admit VTE Documentation VTE Present on Admission: No VTE Mechan Device Prophylaxis: SCD's VTE Pharm Prophylaxis ordered?: No
--- NOTE | 2024-02-01 11:27 | PCM.POST.ANE ---
Anesthesia: Postop Eval I Current Vital Signs Temperature: 98 F Pulse Rate: 62 Blood Pressure: 91/53 Respiratory Rate: 18 Pulse Ox: 94 Assessment Airway patent: Yes Spontaneous unlabored respirations: Yes nausea: No Vomiting: No Anesthesia Complication: No Fluid Hydration Crystalloid volume administer (ml): 800 Total IV fluid infused: 800 Progress Note Anesthesia document: Postop Eval 1 completed: Yes
--- NOTE | 2024-02-01 11:34 | POSTOPAN2_ITS ---
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.CSIR Spontaneous unlabored Yes 02/01/24 11:27 PHOTOFINISHING LABORATORY WORKER.CSIR respirations Mental status nausea No 02/01/24 11:27 PHOTOFINISHING LABORATORY WORKER.CSIR Vomiting No 02/01/24 11:27 PHOTOFINISHING LABORATORY WORKER.CSIR Anesthesia Postop Eval I: Fluid Summary Crystalloid volume administer 800 02/01/24 11:27 PHOTOFINISHING LABORATORY WORKER.CSIR (ml) Colloids volume administered ( ml) Blood Product volume administered (ml) Total IV fluid infused 800 02/01/24 11:27 PHOTOFINISHING LABORATORY WORKER.CSIR Anesthesia Postop Eval I: Summary Notes Anesthesia Complication No 02/01/24 11:27 PHOTOFINISHING LABORATORY WORKER.CSIR Anesthesia Complication Comment: Post-operative progress note Anesthesia: Postop Eval II Evaluation Mental status: Awake Pain Level: 0 nausea: No Vomiting: No
--- NOTE | 2024-02-01 11:34 | PCM.POSTANE2 ---
Anesthesia Postop Eval I Sum Postop Eval Completion status Anesthesia document: Postop Eval 1 completed: Yes Anesthesia Postop Eval I Summary Anesthesia Postop Eval I Summary: Anesthesia Postop Eval I: Assessment Summary Airway patent Yes 02/01/24 11:27 THERAPEUTIC CASE MANAGER.CSIR Spontaneous unlabored Yes 02/01/24 11:27 THERAPEUTIC CASE MANAGER.CSIR respirations Mental status nausea No 02/01/24 11:27 THERAPEUTIC CASE MANAGER.CSIR Vomiting No 02/01/24 11:27 THERAPEUTIC CASE MANAGER.CSIR Anesthesia Postop Eval I: Fluid Summary Crystalloid volume administer 800 02/01/24 11:27 THERAPEUTIC CASE MANAGER.CSIR (ml) Colloids volume administered ( ml) Blood Product volume administered (ml) Total IV fluid infused 800 02/01/24 11:27 THERAPEUTIC CASE MANAGER.CSIR Anesthesia Postop Eval I: Summary Notes Anesthesia Complication No 02/01/24 11:27 THERAPEUTIC CASE MANAGER.CSIR Anesthesia Complication Comment: Post-operative progress note Anesthesia: Postop Eval II Evaluation Mental status: Awake Pain Level: 0 nausea: No Vomiting: No
== END 2024-02-01 13:54 | disposition home or self-care (01) ==
LOC: SDC 07:44 → AC 07:44
PROVIDERS: PCP Family Medicine; Referring Provider Urology; Visit Provider Urology
PROC: (CPT 54161; principal; 2024-02-01 09:50)
DX: N47.1 Phimosis (principal); I11.0 Hypertensive heart disease with heart failure; I50.9 Heart failure, unspecified; E78.00 Pure hypercholesterolemia, unspecified; I25.2 Old myocardial infarction; Z79.899 Other long term (current) drug therapy; Z79.82 Long term (current) use of aspirin; Z86.73 Personal history of transient ischemic attack (TIA), and cerebral infarction without residual deficits; Z95.5 Presence of coronary angioplasty implant and graft
CPT/HCPCS: 54161; 53600; 00920; J2405

== ENCOUNTER 2024-07-29 12:28 | Emergency (ER) | payer MEDICARE, SELFPAY ==
[2024-07-29] VITALS (8 sets, daily range): BP systolic 114–141; BP diastolic 64–90; PULSE 68–82; RESP 18–22; TEMP 36.6; O2SAT 95–97; BMI 23.2; BMI 23.8
--- NOTE | 2024-07-29 12:35 | EKG12_ITS ---
Test Reason : STROKE ALERT Blood Pressure : */* mmHG Vent. Rate : 78 BPM Atrial Rate : 78 BPM P-R Int : 198 ms QRS Dur : 96 ms QT Int : 386 ms P-R-T Axes : 49 -46 91 degrees QTcB Int : 440 ms Sinus rhythm with occasional Premature ventricular complexes Possible Left atrial enlargement Left axis deviation Anteroseptal infarct , age undetermined Abnormal ECG Confirmed by DEANNA DAVIES, DWIGHT ([id number]), sound editor ADALI DE LEÓN ([id number]) on 07/31/2024 7:43:31 AM Referred By: LAYLA Confirmed By: DWIGHT HUERTA MD
--- NOTE | 2024-07-29 12:35 | CT_ITS ---
PROCEDURE: STROKE CTA HEAD AND NECK W/CON 07/29/2024 REASON FOR EXAM: NEURO DEFICIT, ACUTE, STROKE SUSPECTED TECHNIQUE: STROKE CTA HEAD AND NECK W/CON Multiplanar and multisequence images were obtained. CONTRAST: Isovue 370 VOLUME: 100 mL One or more dose reduction techniques were used (e.g., Automated exposure control, adjustment of the mA and/or kV according to patient size, use of iterative reconstruction technique). RADIATION DOSE SUMMARY: CTDlvol: 44.99 mGy DLP: 812.98 mGycm FINDINGS: Aortic Arch: Unremarkable Brachiocephalic and Subclavians: Normal RIGHT Carotid: Right CCA: Unremarkable Right ICA: Normal Maximum stenosis (NASCET): 0 % Right ECA: Patent LEFT Carotid: Left CCA: Normal Left ICA: Normal Maximum stenosis (NASCET): 20 % Left ECA: Calculus at the ostium. No flow-limiting stenosis. Vertebrals: Normal RIGHT Vertebral: Intracranial portion is small caliber. LEFT Vertebral: Intracranial portion is patent, small caliber. Anatomy: Unremarkable Aneurysm or avm: None. Anterior cerebral arteries: Patent. Middle cerebral arteries: Patent. Basilar artery: Patent. Posterior cerebral arteries: Patent. Other major branches of the posterior circulation: Patent. Major venous structures: Normal Other findings: Neck: None. 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 CT/STROKE CTA Head AND Neck W/Con IMPRESSION: No large vessel occlusion identified. No aneurysm or AVM identified. Hemorrhagic infarct right parietal lobe Reading Location: [facility]
--- NOTE | 2024-07-29 12:35 | CT_ITS ---
EXAM: STROKE BRAIN/HEAD WITHOUT CONT CLINICAL HISTORY: 88 y/o M with NEURO DEFICIT, ACUTE, STROKE SUSPECTED. COMPARISON: None. TECHNIQUE: Routine CT imaging of the head without IV contrast. Additional multiplanar reformats were obtained. Dose reduction techniques were used including intermediate exposure control (AEC),iterative reconstruction technique, and/or mA and/or KV dose adjustments based on patient's size. FINDINGS: Moderate generalized cerebral volume loss with concordant prominence of the ventricles and subarachnoid spaces. Moderate-sized hyperdensity within the right postcentral gyrus. Moderate patchy supratentorial white matter hypodensities. The tate-white matter interfaces are otherwise maintained. Prior ocular lens replacements. The visualized paranasal sinuses and mastoids are unremarkable. No acute calvarial fracture or scalp hematoma. CT/STROKE Brain/Head without Cont IMPRESSION: 1. Intraparenchymal hemorrhage within the right postcentral gyrus. 2. Findings of chronic microvascular ischemic changes and age-related changes. Dr. Lozano discussed these findings via telephone with Dr. Nugent at 12:49 p .m. on 07/29/2024. Reading Location: [id number]
--- OUTSIDE RECORDS SUMMARY | 2024-07-29 12:36 | XMS RPT_ITS | CCD ---
Author Organization [facility] Care Team Providers Care Vp Scientific Affairs Name Role Phone Zhou Prince Attending Unavailable PROVIDER, UNKNOWN Referring Unavailable Brown, Devon Primary Care Unavailable Brown, Devon R Primary Care Provider Deovn Beltran Primary Care Provider [phone] Dr. Devon Beltran Primary Care Provider [phone] Dr. Devon Beltran Attending Provider Dr. Devon Beltran Referring Provider Brown, Devon R Primary Care Unavailable Brown, Devon R Attending Unavailable Brown, Devon R Referring Unavailable Blackstone, Daisy Attending Unavailable Brown, Devon R Primary Care Unavailable Blackstone, Daisy Referring Unavailable Brown, Devon R Primary Care Unavailable Mark Muñiz Attending Unavailable Mary KayMark Referring Unavailable Brown, Devon R Primary Care Unavailable Ye Rogers Attending Unavailable Brown, Devon R Referring Unavailable Brown, Devon R Primary Care Unavailable Brown, Devon R Attending Unavailable Brown, Devon R Referring Unavailable Mary Raygoza Attending Unavailable Brown, Devon R Primary Care Unavailable Brown, Devon R Primary Care Unavailable Mary KayMark Attending Unavailable Mary KayMarkAgustin Referring Unavailable BROWN, DEVON Primary Care Unavailable BROWN, DEVON Primary Care Unavailable BROWN, DEVON Primary Care Unavailable BROWN, DEVON Primary Care Unavailable BROWN, DEVON Primary Care Unavailable ZHOU PRINCE Attending Unavailable BROWN, DEVON Primary Care Unavailable Medications Current Medications Medication Drug Class(es) Dates Sig (Normalized) Sig (Original) aspirin 81 mg chewable tablet (16 sources) Platelet Aggregation Inhibitor, Nonsteroidal Anti-inflammatory Drug Start: 09-11-2015 take 81 mg by mouth once daily Aspirin Active 81 MG PO DAILY@0800 September 11, 2015 12:00am take 1 tablet by mouth once tariq y aspirin 81 MG EC tablet Take 81 mg by mouth daily. Active take 1 tablet by mouth once tariq y aspirin 81 MG tablet Take 81 mg by mouth daily 0 Active carvedilol 6.25 mg oral tablet (20 sources) alpha-Adrenergic Joanie, beta-Adrenergic Joanie Start: 09-11-2015 End: 06-04-2024 take 1 tablet by mouth twice daily at mealtime carvedilol (Coreg) 6.25 MG tablet Indications: LV dysfunction Take 1 tablet (6.25 mg) by mouth 2 times daily (with meals). 180 tablet 06/04/2024 Active finasteride 5 mg oral tablet (2 sources) 5-alpha Reductase Inhibitor Start: 03-14-2024 take 1 tablet by mouth once daily finasteride (Proscar) 5 MG tablet Take 5 mg by mouth daily. 03/14/2024 Active hydroCHLOROthiazide 12.5 mg oral capsule (9 sources) Thiazide Diuretic Start: 08-25-2022 Hydrochlorothiazide Active MG PO August 25, 2022 12:00am Start: 02-01-2022 End: 06-07-2023 take 1 capsule by mouth once daily hydroCHLOROthiazide (Microzide) 12.5 MG capsule Indications: LV dysfunction Take 1 capsule (12.5 mg) by mouth daily. 90 capsule 1 08/03/2022 06/07/2023 Discontinued (Therapy completed) Start: 08-03-2021 take 1 capsule by mo [facility] once daily hydroCHLOROthiazide (MICROZIDE) 12.5 MG capsule Indications: Essential hypertension Take 1 capsule by mouth once daily 90 capsule 1 08/03/2021 Active losartan potassium 50 mg oral tablet (20 sources) Angiotensin 2 Receptor Joanie Start: 08-25-2022 Losartan Active MG PO August 25, 2022 12:00am Start: 02-01-2022 End: 06-08-2024 take 1 tablet by mouth once daily losartan (Cozaar) 50 MG tablet Indications: LV dysfunction Take 1 tablet (50 mg) by mouth daily. 90 tablet 3 06/08/2024 Active Start: 08-03-2021 take 1 tablet by margarita once daily losartan (COZAAR) 50 MG tablet Indications: Essential hypertension Take 1 tablet by mouth once daily 90 tablet 1 08/03/2021 Active nitroglycerin 0.4 mg sublingual tablet (16 sources) Nitrate Vasodilator Start: 09-11-2015 nitroglycerin (Nitrostat) 0.[address] 0.4 mg under the tongue as needed. 11/19/2016 Active simvastatin 40 mg oral tablet (20 sources) HMG-CoA Reductase Inhibitor Start: 09-11-2015 End: 06-04-2024 take 1 tablet by mouth once daily simvastatin (Zocor) 40 MG tablet Indications: Hyperlipidemia, unspecified hyperlipidemia type Take 1 tablet (40 mg) by mouth Nightly. 90 tablet 06/04/2024 Active 5 ml sodium chloride 9 mg/ml injection (3 sources) Start: 11-09-2021 0.9 % sodium chloride infusion Start: 11-09-2021 sodium chlorid e flush 0.9 % injection 5-40 mL spironolactone 25 mg oral tablet (20 sources) Aldosterone Antagonist Start: 02-01-2022 End: 06-08-2024 take 0.5 tablet by mouth once daily spironolactone (Aldactone) 25 MG tablet Indications: LV dysfunction Take 0.5 tablets (12.5 mg) by mouth daily. 45 tablet 1 06/08/2024 Active Start: 08-03-2021 take 0.5 tablet by m outh once daily spironolactone (ALDACTONE) 25 MG tablet Indications: CAD in [place] artery Take 1/2 (one-half) tablet by mouth once daily 45 tablet 1 08/03/2021 Active Start: 09-11-2015 take 12.5 mg by mout h once daily Spironolactone Active 12.5 MG PO DAILY September 11, 2015 12:00am tamsulosin hydrochloride 0.4 mg oral capsule (2 sources) alpha-Adrenergic Joanie Start: 03-20-2024 take 1 capsule by mouth twice daily tamsulosin (Flomax) 0.4 MG 24 hr capsule Take 0.4 mg by mouth 2 times daily. 03/20/2024 Active Completed/Discontinued Medications Medication Drug Class(es) Dates Sig (Normalized) Sig (Original) hydroCHLOROthiazide 25 mg / valsartan 160 mg oral tablet (3 sources) Thiazide Diuretic, Angiotensin 2 Receptor Joanie Start: 09-11-2015 End: 08-25-2022 Valsartan-Hydroch lorothiazide (Diovan Hct 160-25 Mg Tablet) 1 TABLET tablet Discontinued 1 TABLET PO DAILY September 11, 2015 12:00am August 25, 2022 9:27am vancomycin 1000 MG IVPB in 250 mL D5W add-vantage (1 source) Start: 11-09-2021 End: 11-09-2021 vancomycin 1000 MG IVPB in 250 mL D5W add-vantage Problems Active Problems Problem Classification Problem Date Documented Date Episodic/Chronic Conduction disorders (20 sources) Encounter for adjustment and management of automatic implantable cardiac defibrillator; Translations: [Automatic implantable cardiac defibrillator in situ] Onset: 12-29-2011 Chronic Congestive heart failure; nonhypertensive (3 sources) Congestive heart failure; Translations: [Heart failure, unspecified] Onset: 10-25-2023 08-25-2022 Chronic Coronary atherosclerosis and other heart disease (20 sources) Atherosclerotic heart disease of [place] coronary artery without angina pectoris; Translations: [Old myocardial infarction] Onset: 02-14-2011 Chronic Disorders of lipid metabolism (20 sources) Hyperlipidemia, unspecified; Translations: [Hyperlipidemia] Onset: 05-26-2016 Chronic Essential hypertension (2 sources) Hypertensive disorder; Translations: [Essential (primary) hypertension] 08-25-2022 Chronic Genitourinary symptoms and ill-defined conditions (2 sources) Other retention of urine; Translations: [Retention of urine, unspecified] Onset: 12-21-2023 Episodic Hyperplasia of prostate (1 source) Benign prostatic hyperplasia with lower urinary tract symptoms; Translations: [Benign prostatic hyperplasia with lower urinary tract symptoms] Onset: 01-05-2024 Chronic Other aftercare (2 sources) 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; Translations: [penitentiary (current) use of aspirin] Onset: 11-09-2021 Episodic Other and ill-defined heart disease (5 sources) Heart disease, unspecified; Translations: [Heart disease, unspecified] Onset: 11-09-2021 Chronic Other and ill-defined heart disease (20 sources) Left ventricular cardiac dysfunction; Translations: [Heart disease, unspecified] Onset: 05-26-2016 05-26-2016 Chronic Other and ill-defined heart disease (1 source) Heart disease; Translations: [Heart disease, unspecified] 08-25-2022 Chronic Other connective tissue disease (1 source) Dupuytren's contracture; Translations: [Palmar fascial fibromatosis [Dupuytren]] 08-25-2022 Episodic Other connective tissue disease (1 source) Palmar fascial fibromatosis [Dupuytren]; Translations: [Contracture of palmar fascia] 08-25-2022 Episodic Other ear and sense organ disorders (1 source) Hearing loss; Translations: [Unspecified hearing loss, unspecified ear] 08-25-2022 Chronic Other male genital disorders (1 source) Phimosis; Translations: [Phimosis] Onset: 02-01-2024 Episodic Past or Other Problems Problem Classification Problem Date Documented Da te Episodic/Chronic Coronary atherosclerosis and other heart disease (15 sources) Presence of coronary angioplasty implant and graft; Translations: [Stent in anterior descending branch of left coronary artery] Onset: 05-26-2016 Episodic Results Test Name Value Interpretation Reference Range Facility 36on 06-08-2024 36 Last OV- 06/04/24 CMP- 08/25/22 Normal [facility] Office Visiton 06-04-2024 Follow-up visit [id number] Efraín Loyd 1935 M Date Provider Department Center 06/04/2024 [facility] [address] Family History Problem Relation Age of Onset Heart failure Mother Heart Surgery Mother Pacemaker Brother Family Status - Relation Status Age at Mother Brother Alive Father Level of Service:75682 [place] OFFICE/OUTPATIENT ESTABLISHED MOD MDM 30 MIN Reason for Visit and Comments: Annual Exam [83] Normal [facility] Progress Noteon 06-04-2024 Progress Note [facility] Cardiology Note Chief Complaint: Chief Complaint Patient presents with Annual Exam History of Present Illness: Efraín Loyd is a 88 y.o. male presents for follow-up status post ICD implantation and the primary prevention of sudden cardiac . Overall from a cardiac standpoint has no complaints whatsoever. No lightheadedness presyncope or syncope. He was in [place] in the winter and while there in April 10 had an episode of nonsustained ventricular tachycardia accelerating into the ventricular fibrillation zone spontaneously terminating. No significant anginal complaints. His reports he actually he is 50 years old. Past Medical History: Past Medical History: Diagnosis Date CAD (coronary artery disease) Hyperlipidemia ICD (implantable cardioverter-defibri llator), single, in situ 12/29/2011 LV dysfunction Old SC (myocardial infarction) 2012 Anterior Presence of stent in LAD coronary artery 07/05/02 : AYLIN to LAD, 10/18/11: AYLIN to ISS LAD Past Surgical History Past Surgical History: Procedure Laterality Date CARDIAC DEFIBRILLATOR PLACEMENT CARDIAC PROCEDURE CORONARY ANGIOPLASTY Family History Family History Problem Relation Name Age of Onset Heart failure Mother Heart Surgery Mother Pacemaker Brother Social History Social History Tobacco Use Smoking status: Never Smokeless tobacco: Never Substance Use Topics Alcohol use: Yes Comment: occasional/wine or beer Drug use: No Comment: Caffeine: 1 and a half cups of coffee a day Allergies: No Known Allergies Medications: Current Outpatient Medications: aspirin 81 MG EC tablet, Take 81 mg by mouth daily., Disp: , Rfl: carvedilol (Coreg) 6.25 MG tablet, TAKE 1 TABLET BY MOUTH IN THE MORNING AND 1 TAB IN THE EVENING WITH MEALS, Disp: 180 tablet, Rfl: 0 carvedilol (Coreg) 6.25 MG tablet, Take 1 tablet (6.25 mg) by mouth 2 times daily (with meals)., Disp: 180 tablet, Rfl: 1 losartan (Cozaar) 50 MG tablet, Take 1 tablet by mouth once daily, Disp: 90 tablet, Rfl: 0 losartan (Cozaar) 50 MG tablet, Take 1 tablet (50 mg) by mouth daily., Disp: 90 tablet, Rfl: 1 nitroglycerin (Nitrostat) 0.4 MG SL tablet, Place 0.4 mg under the tongue as needed., Disp: , Rfl: simvastatin (Zocor) 40 MG tablet, Take 1 tablet by mouth nightly, Disp: 90 tablet, Rfl: 0 simvastatin (Zocor) 40 MG tablet, Take 1 tablet (40 mg) by mouth Nightly., Disp: 90 tablet, Rfl: 1 spironolactone (Aldactone) 25 MG tablet, Take 1/2 (one-half) tablet by mouth once daily, Disp: 45 tablet, Rfl: 0 spironolactone (Aldactone) 25 MG tablet, Take 0.5 tablets (12.5 mg) by mouth daily., Disp: 45 tablet, Rfl: 1 Review of Systems: Review of Systems Constitutional: Negative. HENT: Negative. Eyes: Negative. Respiratory: Negative. Cardiovascular: Negative. Gastrointestinal: Negative. Endocrine: Negative. Genitourinary: Negative. Musculoskeletal: Negative. Skin: Negative. Allergic/Immunologic : Negative. Neurological: Negative. Hematological: Negative. Psychiatric/Behavior al: Negative. Physical Examination: Vitals: Vitals: 06/04/24 1454 BP: 114/58 BP Location: Left arm Patient Position: Sitting BP Cuff Size: Adult Pulse: 60 SpO2: 97% Weight: 150 lb 6.4 oz (68.2 kg) Height: 5' 6 (1.676 m) Body mass index is 24.28 kg/m?. Physical Exam Vitals reviewed. Constitutional: Appearance: Normal appearance. HENT: Head: Normocephalic. Right Ear: External ear normal. Left Ear: External ear normal. Nose: Nose normal. Mouth/Throat: Mouth: Mucous membranes are moist. Eyes: Pupils: Pupils are equal, round, and reactive to light. Cardiovascular: Rate and Rhythm: Normal rate and regular rhythm. Heart sounds: No murmur heard. Pulmonary: Effort: No respiratory distress. Musculoskeletal: General: Normal range of motion. Skin: General: Skin is warm and dry. Coloration: Skin is not jaundiced. Neurological: General: No focal deficit present. Mental Status: He is alert. Motor: No weakness. Gait: Gait normal. Psychiatric: Mood and Affect: Mood normal. Behavior: Behavior normal. Thought Content: Thought content normal. Judgment: Judgment normal. Laboratory Tests: Lab Results Component Value Date WBC 10.4 10/26/2021 HGB 14.9 10/26/2021 MCV 90.5 10/26/2021 Lab Results Component Value Date GLUCOSE 93 08/25/2022 CALCIUM 9.4 08/25/2022 NA 139 08/25/2022 K 4.1 08/25/2022 CO2 28 08/25/2022 CL 106 08/25/2022 BUN 18 08/25/2022 CREATININE 1.06 08/25/2022 @LASTP@ Lab Results Component Value Date CHOL 118 08/18/2022 Lab Results Component Value Date TRIG 74 08/18/2022 Lab Results Component Value Date HDL 58 08/18/2022 Lab Results Component Value Date LDLCALC 45 08/18/2022 Assessment and Plan: ICD: Very well-healed. Lead panel is remain excellent. Normal function is observed. Will follow device clinic per rout (more content not included)... Normal [facility] 36on 02-23-2024 36 OV 05/2023 JKS FU 06/04/24 [facility] Discharge Instructionon 01-14 Discharge Instruction [facility] Medical Records Department [address] [place] [address] Instructions for Home/Discharge Instructions 02/01/24 1119 MR#: [id number] Acct: [id number] Name: EFRAÍN LOYD Rep #: [id number] : 1935 88 From: Mark Muñiz MD PCP: Dr. Devon Beltran DO [place] [facility] [place] Instructions Diet Discharge Diet: No restrictions DC O2, CPAP, BIPAP needs Additional Home O2 Discharge instructions: No Dressing / Incision Discharge Activity: Return to Normal Activity and May Not Drive (while taking narcotic pain medications.) Dressing / Incision Call your doctor if you observe: Fever of 101 or Higher Cleanse incision/area with: Soap Water Additional Dressing/Incision Instructions:: okay to remove dressing tomorrow Follow Up Care Please Follow Up With: Mark Muñiz MD When: Call [phone] for an appointment Test Results: Test results from this visit will be discussed in further detail at your follow-up appointment, if applicable. Discharge Plan Admission Attending Provider: Mark Muñiz Primary Care Provider: Devon Beltran Print Language: Comoran Discharge Orders/Prescriptions Prescriptions: No Action losartan 50 mg tablet 50 mg PO DAILY spironolactone 25 MG tablet 12.5 mg PO DAILY simvastatin 40 MG tablet 40 mg PO QHS nitroglycerin 0.4 MG tablet 0.4 mg sublingual Q5M PRN (Reason: Chest Pain) aspirin 81 MG tablet,chewable 81 mg PO DAILY@0800 finasteride 5 mg tablet 5 mg PO DAILY carvedilol 6.25 mg tablet 6.25 mg PO BID tamsulosin [Flomax] 0.4 mg capsule 0.4 mg PO BID Referrals / Follow Up: Devon Beltran DO [Primary Care Provider] - Disposition Disposition (needs filled in before D/C Order can be placed): Home, Self Care 02/01/241118 Mark Muñiz MD CC: Dr. Devon Beltran DO Signed [facility] MR/POSTOP.ANEon 02-01-2024 MR/POSTOP.ANE [facility] Medical Records Department [address] [place] [address] Anesthesia Postop Eval I 02/01/24 1127 MR#: [id number] Acct: [id number] Name: EFRAÍN LOYD Rep #: [id number] : 1935 88 From: Shameka Garza PCP: Dr. Devon Beltran, DO Status:REG SDC Y Race: C Location: [place] [address] Anesthesia: Postop Eval I Current Vital Signs Temperature: 98 F Pulse Rate: 62 Blood Pressure: 91/53 Respiratory Rate: 18 Pulse Ox: 94 Assessment Airway patent: Yes Spontaneous unlabored respirations: Yes nausea: No Vomiting: No Anesthesia Complication: No Fluid Hydration Crystalloid volume administer (ml): 800 Total IV fluid infused: 800 Progress Note Anesthesia document: Postop Eval 1 completed: Yes 02/01/248 Date Shameka Walsh Signature: Date CC: Signed Normal [facility] MR/[id number] 02-01-2024 [facility] Medical Records Department [address] [facility] [place] [address] Anesthesia Postop Eval II 02/01/24 1134 MR#: [id number] Acct: [id number] Name: EFRAÍN LOYD Rep #: [id number] : 1935 88 From: Ricardo Blankenship MD PCP: Dr. Devon Beltran, DO Status:REG SDC Y Race: C Location: [place] [address] Anesthesia Postop Eval I Sum Postop Eval Completion status Anesthesia document: Postop Eval 1 completed: Yes Anesthesia Postop Eval I Summary Anesthesia Postop Eval I Summary: Anesthesia Postop Eval I: Assessment Summary Airway patent Yes 02/01/24 11:27 COKE CRUSHER OPERATOR.CSIR Spontaneous unlabored Yes 02/01/24 11:27 COKE CRUSHER OPERATOR.CSIR respirations Mental status nausea No 02/01/24 11:27 COKE CRUSHER OPERATOR.CSIR Vomiting No 02/01/24 11:27 COKE CRUSHER OPERATOR.CSIR Anesthesia Postop Eval I: Fluid Summary Crystalloid volume administer 800 02/01/24 11:27 COKE CRUSHER OPERATOR.CSIR (ml) Colloids volume administered ( ml) Blood Product volume administered (ml) Total IV fluid infused 800 02/01/24 11:27 COKE CRUSHER OPERATOR.CSIR Anesthesia Postop Eval I: Summary Notes Anesthesia Complication No 02/01/24 11:27 COKE CRUSHER OPERATOR.CSIR Anesthesia Complication Comment: Post-operative progress note Anesthesia: Postop Eval II Evaluation Mental status: Awake Pain Level: 0 nausea: No Vomiting: No 02/01/24 1134 Date Ricardo Walsh Signature: Date CC: Signed Normal [facility] Operative Reporton 4 Operative Report [facility] Medical Records Department [address] [place] [address] Operative Report 02/01/24 1119 MR#: [id number] Acct: [id number] Name: EFRAÍN LOYD Rep #: [id number] : 1935 88 From: Mark Muñiz MD PCP: Dr. Devon Beltran, DO Status:[facility] Location: [place] [address] Operative Report (Standard) Operative Information Date of Procedure: 02/01/24 Pre-Operative Diagnosis: Phimosis and meatal stenosis Post-Operative Diagnosis: The same Surgery/Procedure Performed: Circumcision and dilation of meatus and flexible cystoscopy mineral resources inspector: No Type of Anesthesia: General RN Documented Start/Stop Times: Operation Date: 02/01/24 10:00 Case Time Into Pre-Op 02/01/24 07:57 Out of Pre-Op 02/01/24 10:33 Anesthesia Start 02/01/24 10:37 Into Room 02/01/24 10:37 Procedure Start 02/01/24 10:47 Procedure End 02/01/24 11:17 Procedure Start Time: 10:47 Procedure Stop Time: 11:20 Select all DRAINS/GRAFTS/IMPLAN TS that apply: None Estimated Blood Loss: 2 cc Specimen collected: No Description of surgery: Patient was taken back to the operating room after smooth induction of a MAC local he was placed upon on the table we then prepped and draped the penis in usual sterile fashion I did a block circumferentially around the penis with Marcaine. I then marked out incision all the way around the foreskin dissected the foreskin off the penis and glans and it was very phimotic and tight. I then the meatus was identified and the meatus is supertight started off with a 12 [place] [address]agan dilators and dilated up to 32 [place]. I then a cystoscopy was done entire length urethra was normal and clear and open the sphincter was intact the prostate was enlarged with hypertrophy and enlarged prostate the bladder was normal no tumors or stones within the bladder minimal trabeculation. I then removed the cystoscope and then completed the circumcision using interrupted 3-[address] the way around the penis. Patient's anesthetic was reversed and dressings were placed on the penis and his takeback to PACU in good condition he can follow-up in a few weeks for checkup Surgical Findings: Circumcision completed meatus dilated up to 32 [place] cystoscopy confirms normal channel no strictures prostate and large bladder is normal Complications Complications: No Admit VTE Documentation VTE Present on Admission: No VTE Mechan Device Prophylaxis: SCD's VTE Pharm Prophylaxis ordered?: No 02/01/24 1122 Cosigner Signature (if applicable): CC: Dr. Devon Beltran, DO; Dr. Mark Muñiz MD Signed [facility] 3601-20-2024 36 Faxed over completed form to [facility] Pre Adm Testing Dept. Paperwork sent to scanning thereafter. [facility] 36 Placed completed form on Sadie's desk [facility] 36on 01-19-2024 36 Device info completed on form. Placed on Dr. Prince's desk to review and sign Normal [facility] 36 Received via fax [facility] Fax re: office paperwork and device info. Will give to Nenita to fill out and have doctor sign thereafter. Normal [facility] CREATININE FINGERSTICKon CREATININE WB < 1.0 Normal 0.70-1.30 [facility] Comment on above: Performed By: #### L 9100.0200 #### [facility] [address] [place], [place], [address] EGFR WB > 60.0000 Normal >60 [facility] Comment on above: Performed By: #### L 9100.0200 #### [facility] [address] [facility] [place], [place], [address] CT Abd/Pelvis W/WO Contrasto n 01-04-2024 CT Abd/Pelvis W/WO Contrast [facility] Imaging Services [address] [place], [place] [address] CT Abd/Pelvis W/WO Contrast MR#: [id number] Acct: [id number] Name: EFRAÍN LOYD Rep #: [id number] : 1935 M 88 From: Emil veronica MD PCP: Dr. Devon Beltran, DO Status: REG CLI Study: CT Abd/Pelvis W/WO Contrast Date of Exam: 12/16 Exam# [id number] Ordering Dr: Mark Muñiz MD [id number] STUDY: CT ABDOMEN AND PELVIS WITH AND WITHOUT CONTRAST REASON FOR EXAM: Male, 88 years old.GROSS HEMATURIA/ RETENTION OF URINE/ BPH W/LOWER UTI SX painful urination, urinary retention, penile injury while cathing? RADIATION DOSAGE (If Supplied By Facility): CTDIvol = ( 12.32 ) mGy, DLP = ( 785.52 ) mGycm TECHNIQUE: Transaxial images were obtained from the dome of the diaphragm to the symphysis pubis without oral contrast. ml of 100mL Isovue-300 contrast was administered. Sagittal and coronal images were reconstructed. Individualized dose optimization techniques were used for this CT. COMPARISON: None. FINDINGS: The visualized lung bases are unremarkable. The visualized portions of the heart are within normal limits. Normal liver. The gallbladder is contracted. Normal spleen. Normal pancreas. Normal bilateral adrenal glands. Normal right kidney. There is moderate cortical atrophy of the left kidney, consistent with chronic medical renal disease. No radiopaque kidney stones are present. No demonstrated hydronephrosis or hydroureter. No renal masses or cysts are present. Normal visualized stomach. Normal small intestine. There are multiple colonic diverticula consistent with diverticulosis. The appendix is visualized and appears normal. There is diffuse atherosclerotic calcification of the abdominal aorta, without a demonstrated aneurysm. Normal inferior vena cava. Normal retroperitoneum. Normal urinary bladder. The prostate gland is markedly enlarged at 6.86 x 6.64 cm. The prostate gland is also diffusely heterogeneous without visualization of a focal lesion by CT criteria. This can be evaluated with MRI of the prostate gland with and without contrast if clinically indicated. Correlation with PSA also recommended. The apex of the prostate gland herniated into the base of the bladder. No bladder masses or stones are present. Normal abdominal wall. There are diffuse degenerative changes of the visualized lumbar spine. Healed left hip fracture with a dynamic compression cortical plate screw construct. CT/CT Abd/Pelvis W/WO Contrast IMPRESSION: 1. The prostate gland is markedly enlarged at 6.86 x 6.64 cm. The prostate gland is also diffusely heterogeneous without visualization of a focal lesion by CT criteria. This can be evaluated with MRI of the prostate gland with and without contrast if clinically indicated. Correlation with PSA also recommended. The apex of the prostate gland herniated into the base of the bladder. No bladder masses or stones are present. Electronically Signed: Emil Salgado MD at 11:13 EST , CC: Dr. Devon Beltran, DO; Dr. 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 Normal [facility] Comment on above: Performed By: #### M 100.8440 #### [facility] [address] [place], [address] Emergency Department Summary on 11-28-2023 Emergency Department Summary [facility] Medical Records Department [address] [place] [address] Emergency Department Summary 11/28/23 MR#: [id number] Acct: [id number] Name: EFRAÍN LOYD Rep #: [id number] : 1935 88 From: Ye Rogers MD PCP: Dr. Devon Beltran, Status:REG ER Location: ED HPI History of Present Illness Chief Complaint: Complaint Informant: patient and spouse/S.O. Narrative Narrative: 88-year-old male presenting with difficulty urinating. He feels like he cannot empty and as a result is going more frequently. This occurred 2 days ago and then again overnight along with nocturia. No dysuria, hematuria, fevers, chills, nausea, vomiting, or discomfort in his back. He states he just feels like his bladder is full and he needs to go. Never had this before. No history of prostate problems. Feeling well otherwise. [facility] Medical History Cardiac defibrillator in place Stroke Home Medications ???Medication ???Instructions ???Recorded ???Last Taken ???Type aspirin 81 mg chewable tablet 81 mg PO DAILY@0800 09/11/15 Unknown History nitroglycerin 0.4 mg sublingual 0.4 mg sublingual Q5M PRN Chest 09/11/15 Unknown History tablet Pain simvastatin 40 mg tablet 40 mg PO QHS 09/11/15 Unknown History spironolactone 25 mg tablet 12.5 mg PO DAILY 09/11/15 Unknown History losartan 50 mg tablet mg PO 08/25/22 Unknown History hydroxyzine HCl 25 mg tablet 25 mg PO QHS #10 tabs 07/05/23 Unknown Rx tamsulosin 0.4 mg capsule (Flomax) 0.4 mg PO DAILY #30 caps 11/28/23 Unknown Rx Allergy/AdvReac Type Severity Reaction Status Date / Time No Known Allergies Allergy Verified 11/28/23 08:07 Family History Mother CAD (coronary artery disease) Grandfather CAD (coronary artery disease) Brother Prostate cancer Sister Colon cancer Sister Throat cancer Surgical History H/O cataract removal with insertion of prosthetic lens Social History adopted: No household members: spouse housing: house number of children: 1 current occupational status: retired pets and animals: No Smoking Status: Never smoker second hand exposure: No alcohol intake: current alcohol intake frequency: holidays/special occasions only substance use type: does not use caffeine: Yes (1-2) Type: coffee what type of physical activity do you participate in: walking frequency: daily seatbelt use: always do you feel safe at home: Yes ROS ROS ED Constitutional Constitutional ED: Denies chills or fever(s) Eyes Eyes: Denies change in vision or diplopia ENT ENT ED: Denies rhinorrhea or sore throat Cardiovascular Cardiovascular: Denies chest pain or palpitations Respiratory/Chest Respiratory/Chest: Denies cough or dyspnea Gastrointestinal Gastrointestinal: Denies abdominal pain, diarrhea, nausea or vomiting Genitourinary Genitourinary ED: Reports as per HPI, difficulty urinating and urinary frequency; Denies dysuria, hematuria, scrotal pain or scrotal swelling Musculoskeletal Musculoskeletal: Denies back pain or neck pain Integumentary Denies abscess or rash Neurologic Neurologic: Denies headache(s), paresthesias or weakness Psychiatric Psychiatric: Denies anxiety or suicidal thoughts EXAM Physical Exam Const Vital Signs: 11/28/23 08:08 Temperature 98.6 F Temperature Source Oral Pulse Rate 77 Respiratory Rate 16 Blood Pressure 166/86 H Blood Pressure Mean 112 Pulse Ox 98 Oxygen Delivery Method Room Air Positive well nourished and well developed General Appearance ED: well developed and NAD HEENT Reports moist mucous membranes normocephalic and atraumatic Eyes PERRL and EOMs intact bilaterally Neck full ROM and supple Resp normal respiratory effort and clear to auscultation bilaterally Cardio regular rate, regular rhythm and no murmurs GI non-distended GI Narrative: Some discomfort with palpation over suprapubic area/bladder otherwise benign abdomen. Auscultation: normoactive bowel sounds Palpation: soft; Negative for guarding Back/Spine no CVA tenderness General Back: other FROM Extremity normal to inspection General Extremety ED: Negative for edema, pulses abnormal or tenderness General Extremity: Negative for edema or pulses abnormal Neuro oriented x3, CN's II-XII intact bilaterally and no sensory deficits noted Sensorium / Orientation: awake and alert Motor Exam: strength 5/5 throughout Skin no rashes or lesions noted and no wounds MDM MDM MDM Narrative Medical decision making narrative: Pretreated with Uro-Jet, through the ur (more content not included)... Normal [facility] Urinalysis, Completeon 11-27 RBC 0-5 SEEN Normal 0-5 [facility] Comment on above: Order Comment: CHARITY CTOR TO SPECIFY Performed By: #### L 400.0001 #### [facility] [address] [place], [address] BACTERIA 0 SEEN Normal None Seen [facility] Comment on above: Order Comment: CHARITY CTOR TO SPECIFY Performed By: #### L 400.0001 #### [facility] [address] [place], [address] EPI,SQUAMOUS 0 SEEN Normal 0-5 [facility] Comment on above: Order Comment: CHARITY CTOR TO SPECIFY Performed By: #### L 400.0001 #### [facility] [address] [place], [address] Mucus Ql (Urine sed) 0 SEEN Normal [facility] Comment on above: Order Comment: CHARITY CTOR TO SPECIFY Performed By: #### L 400.0001 #### [facility] [address] [place], [address] WBC 0 SEEN Normal 0-5 [facility] Comment on above: Order Comment: CHARITY CTOR TO SPECIFY Performed By: #### L 400.0001 #### [facility] [address] [place], [address] CBC W/Diff, Automatedon 08-0 7-2023 Absolute Lymph 4.33 X10 3/uL Normal 0.83-4.51 [facility] Comment on above: Performed By: #### L 500.4050, L100.0100, L500.4100 #### [facility] [address] [place], [address] Absolute Neut 4.8 X10 3/uL Normal 2.0-7.7 [facility] Comment on above: Performed By: #### L 500.4050, L100.0100, L500.4100 #### [facility] [address] [place], [address] Basophils/100 WBC (Bld) 0.7 % Normal 0-1 [facility] Comment on above: Performed By: #### L 500.4050, L100.0100, L500.4100 #### [facility] [address] [place], [address] Eosinophils/100 WBC (Bld) 2.0 % Normal 0-5 [facility] Comment on above: Performed By: #### L 500.4050, L100.0100, L500.4100 #### [facility] [address] [place], [address] Erythrocyte distribution width (RBC) [Ratio] 14.2 % Normal 11.6-14.6 [facility] Comment on above: Performed By: #### L 500.4050, L100.0100, L500.4100 #### [facility] [address] [place], [address] Hematocrit (Bld) [Volume fraction] 48.2 % Normal 40-54 [facility] Comment on above: Performed By: #### L 500.4050, L100.0100, L500.4100 #### [facility] [address] [place], [address] Hemoglobin (Bld) [Mass/Vol] 14.8 g/dL Normal 13.0-16.5 [facility] Comment on above: Performed By: #### L 500.4050, L100.0100, L500.4100 #### [facility] [address] [place], [address] IG% 0.300 Normal 0.0-0.9 [facility] Comment on above: Result Comment: IG% - Immature Granulocytes (promyelocytes, myelocytes and metamyelocytes) > 1% indicates that a LEFT SHIFT is Present. Performed By: #### L 500.4050, L100.0100, L500.4100 #### [facility] [address] [place], [address] Lymphocytes/100 WBC (Bld) 43.0 % High 19-41 [facility] Comment on above: Performed By: #### L 500.4050, L100.0100, L500.4100 #### [facility] [address] [place], [address] MCH (RBC) [Entitic mass] 27.9 pg Normal 27.0-32.0 [facility] Comment on above: Performed By: #### L 500.4050, L100.0100, L500.4100 #### [facility] [address] [place], [address] MCHC (RBC) [Mass/Vol] 30.7 g/dL Low 32-36 [facility] Comment on above: Performed By: #### L 500.4050, L100.0100, L500.4100 #### [facility] [address] [place], [address] MCV (RBC) [Entitic vol] 90.9 fL Normal 80-94 [facility] Comment on above: Performed By: #### L 500.4050, L100.0100, L500.4100 #### [facility] [address] [place], [address] Monocytes/100 WBC (Bld) 6.9 % Normal 0-10 [facility] Comment on above: Performed By: #### L 500.4050, L100.0100, L500.4100 #### [facility] [address] [place], [address] Neutrophils/100 WBC (Bld) 47.1 % Normal 47-70 [facility] Comment on above: Performed By: #### L 500.4050, L100.0100, L500.4100 #### [facility] [address] [place], [address] Nucleated RBC (Bld) [#/Vol] 0 10*3/uL Normal 0-5 [facility] Comment on above: Performed By: #### L 500.4050, L100.0100, L500.4100 #### [facility] [address] [place], [address] Platelet mean volume (Bld) [Entitic vol] 11.6 fL Normal 6.2-12.0 [facility] Comment on above: Performed By: #### L 500.4050, L100.0100, L500.4100 #### [facility] [address] [place], [address] Platelets (Bld) [#/Vol] 240 10*3/uL Normal 150-450 [facility] Comment on above: Performed By: #### L 500.4050, L100.0100, L500.4100 #### [facility] [address] [place], [address] RBC (Bld) [#/Vol] 5.30 10*6/uL Normal 4.6-6.2 [facility] Comment on above: Performed By: #### L 500.4050, L100.0100, L500.4100 #### [facility] [address] [place], [address] RDW SD 47.7 fl High 35.1-43.9 [facility] Comment on above: Performed By: #### L 500.4050, L100.0100, L500.4100 #### [facility] [address] [place], [address] WBC (Bld) [#/Vol] 10.1 10*3/uL Normal 4.4-11.0 [facility] Comment on above: Performed By: #### L 500.4050, L100.0100, L500.4100 #### [facility] [address] [place], [address] Comprehensive Metabolic Prof [facility] 09-21-2023 Albumin [Mass/Vol] 3.7 g/dL Normal 3.2-5.0 [facility] Comment on above: Performed By: #### L 500.4050, L100.0100, L500.4100 #### [facility] [address] [place], [address] Albumin/Globulin [Mass ratio] 1.0 {ratio} Normal 0.9-2.4 [facility] Comment on above: Performed By: #### L 500.4050, L100.0100, L500.4100 #### [facility] [address] [place], [address] ALK P 88 U/L Normal 45-117 [facility] Comment on above: Performed By: #### L 500.4050, L100.0100, L500.4100 #### [facility] [address] [place], [address] ALT [Catalytic activity/Vol] 25 U/L Normal 16-61 [facility] Comment on above: Performed By: #### L 500.4050, L100.0100, L500.4100 #### [facility] [address] [place], [address] AST [Catalytic activity/Vol] 18 U/L Normal 15-37 [facility] Comment on above: Performed By: #### L 500.4050, L100.0100, L500.4100 #### [facility] [address] [place], [address] Bilirubin [Mass/Vol] 1.10 mg/dL High 0.20-1.00 [facility] Comment on above: Result Comment: For patients on eltrombopag therapy, use of Dimension Dysart TBIL is not recommended. Performed By: #### L 500.4050, L100.0100, L500.4100 #### [facility] [address] [place], [address] BUN/CRE 13.9 RATIO Normal 10-20 [facility] Comment on above: Performed By: #### L 500.4050, L100.0100, L500.4100 #### [facility] [address] [place], [address] CA,Total 9.3 mg/dL Normal 8.5-10.1 [facility] Comment on above: Performed By: #### L 500.4050, L100.0100, L500.4100 #### [facility] [address] [place], [address] Chloride [Moles/Vol] 107 mmol/L Normal 98-107 [facility] Comment on above: Performed By: #### L 500.4050, L100.0100, L500.4100 #### [facility] [address] [place], [address] CO2 [Moles/Vol] 27.0 mmol/L Normal 21.0-32.0 [facility] Comment on above: Performed By: #### L 500.4050, L100.0100, L500.4100 #### [facility] [address] [place], [address] Creatinine [Mass/Vol] 1.15 mg/dL Normal 0.70-1.30 [facility] Comment on above: Result Comment: The validity of the calculated GFR GFRAA in patients over 70 years has not been determined. Clinical correlation is essential. Performed By: #### L 500.4050, L100.0100, L500.4100 #### [facility] [address] [place], [address] EST GFR - AA 77 mL/min Normal >60 [facility] Comment on above: Result Comment: Afri can [place]e GFR Calc Performed By: #### L 500.4050, L100.0100, L500.4100 #### [facility] [address] [place], [address] GAP 4 Low 5-15 [facility] Comment on above: Performed By: #### L 500.4050, L100.0100, L500.4100 #### [facility] [address] [place], [address] GFR/1.73 sq M.predicted among non-blacks MDRD (S/P/Bld) [Vol rate/Area] 64 mL/min/{1.73_m2} Normal >60 [facility] Comment on above: Result Comment: Non- GFR Calc Performed By: #### L 500.4050, L100.0100, L500.4100 #### [facility] [address] [place], [address] Globulin (S) [Mass/Vol] 3.7 g/dL Normal 2.2-4.2 [facility] Comment on above: Performed By: #### L 500.4050, L100.0100, L500.4100 #### [facility] [address] [place], [address] Glucose [Mass/Vol] 97 mg/dL Normal 74-106 [facility] Comment on above: Performed By: #### L 500.4050, L100.0100, L500.4100 #### [facility] [address] [place], [address] Potassium [Moles/Vol] 4.5 mmol/L Normal 3.5-5.1 [facility] Comment on above: Performed By: #### L 500.4050, L100.0100, L500.4100 #### [facility] [address] [place], [address] Sodium [Moles/Vol] 138 mmol/L Normal 136-145 [facility] Comment on above: Performed By: #### L 500.4050, L100.0100, L500.4100 #### [facility] [address] [place], [address] T PROT 7.4 g/dL Normal 6.4-8.2 [facility] Comment on above: Performed By: #### L 500.4050, L100.0100, L500.4100 #### [facility] [address] [place], [address] Urea nitrogen [Mass/Vol] 16 mg/dL Normal 7-18 [facility] Comment on above: Performed By: #### L 500.4050, L100.0100, L500.4100 #### [facility] [address] [place], [address] Internal Medicine Office Vis irish 09-21-2023 Internal Medicine Office Visit [facility] [address] [place] [address] [place] [address] OFFICE VISIT Date of Service: 09/21/23 MR#: [id number] Acct: [id number] Name: RACHEFRAÍN LIM Rep #: [id number] : 1935 Provider: Dr. Devon simpson DO Age/Sex: 87/M Location: [facility] Status: Signed Intake Vital Signs 07/05/23 09:30 09/21/23 08:23 Height 5 ft 6 in 5 ft 6 in Weight: 145 lb 140 lb BMI 23.3 22.6 BP 118/62 110/62 Blood Pressure Location Lt brachial Lt brachial Position Sitting Sitting Respiration 18 16 Pulse 65 58 L Pulse Source Monitor Monitor Temp 98.2 F 97.7 F L Temp Source Temporal Temporal Pulse Oximetry (%) 99 99 Oxygen Delivery Method room air room air Intake Visit Reasons: YEARLY Chief Complaint: Annual physical exam. 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 Is patient in pain?: No Allergies No Known Allergies Allergy (Verified 09/21/23 08:18) Medications ???Medication ???Instructions ???Recorded ???Confirmed ???Type aspirin 81 mg chewable tablet 81 mg PO DAILY@0800 09/11/15 09/21/23 History nitroglycerin 0.4 mg sublingual 0.4 mg sublingual Q5M PRN Chest 09/11/15 09/21/23 History tablet Pain simvastatin 40 mg tablet 40 mg PO QHS 09/11/15 09/21/23 History spironolactone 25 mg tablet 12.5 mg PO DAILY 09/11/15 09/21/23 History losartan 50 mg tablet mg PO 08/25/22 09/21/23 History hydroxyzine HCl 25 mg tablet 25 mg PO QHS #10 tabs 07/05/23 09/21/23 Rx Have you fallen in the past year?: No PFSH Medical History (Updated 09/21/23 @ 09:[address] Devon Beltran, ) Cardiac defibrillator in place Stroke Surgical History (Updated 09/21/23 @ 08:19 by Sweta Chu MA) H/O cataract removal with insertion of prosthetic lens Family History (Updated 09/21/23 @ 08:21 by Sweta Chu MA) Mother CAD (coronary artery disease) Grandfather CAD (coronary artery disease) Brother Prostate cancer Sister Colon cancer Sister Throat cancer Social History (Updated 09/21/23 @ 08:22 by DIXON Allen adopted: No household members: spouse housing: house number of children: 1 current occupational status: retired pets and animals: No Smoking Status: Never smoker second hand exposure: No alcohol intake: current alcohol intake frequency: holidays/special occasions only substance use type: does not use caffeine: Yes (1-2) Type: coffee what type of physical activity do you participate in: walking frequency: daily seatbelt use: always do you feel safe at home: Yes HPI HPI Chief Complaint: Annual physical exam. Details: EFRAÍN LOYD, is a 87 M who presents to the office today for his annual physical exam. He has been very active and spends half the year to [facility]. When he is back in [place] he is got a large garden that he cultivate's and really has no complaints. He said no chest pain he said no shortness of breath he does have trouble with irritable bowel syndrome and diarrhea for which he takes Imodium on an occasional basis. ROS Const Constitutional: No body ache, chills, excessive sweating, fatigue, fever(s), frequent falls, headache(s), snoring, weakness, sleep problems or change in appetite Eyes Eyes: No blurry vision, change in vision, eye pain or Light sensitivity ENT ENT: No abnormal hearing, ear or mastoid pain, tinnitus, nasal congestion, headache(s), neck pain or sore throat Resp Respiratory: No cough, shortness of breath, snoring or wheezing Cardio Cardiology: No chest pain at rest, chest pain with exertion, excessive sweating, shortness of breath, dyspnea on exertion, lightheadedness, orthopnea or palpitations Gastro GI: No abdominal pain, change in bowel habits, constipation, cramping, diarrhea, nausea/dyspepsia or vomiting Genitourinary Male: No burning urination, painful urination, urinary incontinence or urinary frequency Musc Musculoskeletal: No abnormal gait, joint pain, back pain, limited range of motion, neck pain or numbness Skin Skin: No dry skin, redness, lesions, itchy eyes, rash or wounds Neuro Neurology: No abnormal gait, abnormal hearing, weakness, frequent falls, headache(s), memory loss or numbness Psych Psychiatric: No anxiety, No change in appetite, No depression, No memory loss and No Thoughts of harming yourself/Others Endo Endocrine: No cold intolerance, excessive sweating, fatigue, flushing, heat intolerance, increased thirst/drinking or increased hunger Aller/Imm Allergy/Immunologic: No itchy eyes, seasonal allergy symptoms, hives or wheezing Tony/Lymp Hematologic/Lymphati c: No easy bleeding, easy bruising, enlarged lymph nodes or other Exam Const General: cooperative and no acute distress Nutritional Appearance: thin Orientation: oriented x3 HENMT Head: normal to in (more content not included)... Normal [facility] Lipid Profileon 09-21-2023 Cholesterol [Mass/Vol] 121 mg/dL Normal 200 [facility] Comment on above: Result Comment: <200 mg/dL Desirable 200-240 mg/dL Borderline >240 mg/dL High Risk Performed By: #### L 500.4050, L100.0100, L500.4100 #### [facility] [address] [place], [address] Cholesterol in HDL [Mass/Vol] 45 mg/dL Normal [facility] Comment on above: Result Comment: The drugs N-Acetylcysteine and Metamizole may falsely depress this assay. Reference Range HDL <40 mg/dL Low HDL Cholesterol HDL >or= 60 mg/dL High HDL Cholesterol Performed By: #### L 500.4050, L100.0100, L500.4100 #### [facility] [address] [place], [address] Cholesterol in LDL [Mass/Vol] 59 mg/dL Normal 0-130 [facility] Comment on above: Performed By: #### L 500.4050, L100.0100, L500.4100 #### [facility] [address] [place], [address] Cholesterol in VLDL [Mass/Vol] 17 mg/dL Normal 5-40 [facility] Comment on above: Performed By: #### L 500.4050, L100.0100, L500.4100 #### [facility] [address] [place], [address] Triglyceride [Mass/Vol] 84 mg/dL Normal [facility] Comment on above: Result Comment: The drugs N-Acetylcysteine and Metamizole may falsely depress this assay. Serum Triglycerides Reference Interval Normal <150 mg/dL Borderline high 150 - 199 mg/dL High 200 - 499 mg/dL Very High > or = 500 mg/dL Performed By: #### L 500.4050, L100.0100, L500.4100 #### [facility] [place], [address] 36on 09-05-2023 36 Unscheduled ICD Remote today for VT episode on 09.02.23 @ 10:44 am: sudden onset VT HR 206 bpm, lasting 5 sec then ATP x 1 successfully converted to sinus. Tried to reach patient to see if he had any symptoms, Left message to return call. Normal [facility] Internal Medicine Office Vis iton 07-05-2023 Internal Medicine Office Visit [facility] [address] [place] [address] [place] [address] OFFICE VISIT Date of Service: 07/05/23 MR#: [id number] Acct: [id number] Name: EFRAÍN LOYD Rep #: [id number] : 1935 Provider: SAMIA shrestha Age/Sex: 87/M Location: [facility] Status: Signed Intake Vital Signs 08/25/22 09:33 07/05/23 08:03 07/05/23 09:30 Height 5 ft 6 in 5 ft 6 in 5 ft 6 in Weight: 141 lb 145 lb BMI 22.7 23.3 BP 102/60 118/62 Blood Pressure Location Lt brachial Lt brachial Position Sitting Sitting Respiration 16 18 Pulse 54 L 65 Pulse Source Monitor Monitor Temp 96.5 F L 98.2 F Temp Source Temporal Temporal Pulse Oximetry (%) 99 99 Oxygen Delivery Method room air room air Intake Visit Reasons: ACUTE POISON OAK Chief Complaint: ACUTE POISON OAK Is patient in pain?: Yes (2 ) Allergies No Known Allergies Allergy (Verified 07/05/23 09:32) Medications ???Medication ???Instructions ???Recorded ???Confirmed ???Type aspirin 81 mg chewable tablet 81 mg PO DAILY@0800 09/11/15 07/05/23 History nitroglycerin 0.4 mg sublingual 0.4 mg sublingual Q5M PRN Chest 09/11/15 07/05/23 History tablet Pain simvastatin 40 mg tablet 40 mg PO QHS 09/11/15 07/05/23 History spironolactone 25 mg tablet 12.5 mg PO DAILY 09/11/15 07/05/23 History losartan 50 mg tablet mg PO 08/25/22 07/05/23 History hydroxyzine HCl 25 mg tablet 25 mg PO QHS #10 tabs 07/05/23 07/05/23 Rx prednisone 5 mg tablets in a dose See Rx Instructions PO PER PKG DIR 07/05/23 07/05/23 Rx pack #21 tabs Nurse's Note: pt reports being exposed to what he feels is poison oak last tuesday, ever since has had extreme itching all over and rashy areas on bilat ankles, legs and arms. using calamine lotion currently. States he feels it is getting some better. [facility] Medical History Cardiac defibrillator in place Stroke Social History adopted: No household members: spouse housing: house current occupational status: retired Smoking Status: Former smoker second hand exposure: No alcohol intake: current details: rarely substance use type: does not use caffeine: Yes (1-2) Type: coffee what type of physical activity do you participate in: walking seatbelt use: always do you feel safe at home: Yes HPI HPI Chief Complaint: ACUTE POISON OAK Details: EFRAÍN LOYD, is a 87 M who presents to the office today for an acute visit for poison oak. He was trimming a pine tree at home and was exposed to poison oak approximately 7 to 8 days ago. He then developed a vesicular rash to bilateral distal/wrists, bilateral calves, bilateral arms. He has tried bleach cleanses, calamine lotion, and tracy . He reports vesicles are starting to dry and he does find itch relief with calamine lotion. He does have some swelling to left distal forearm and a few vesicular lesions remaining. He denies noticing a rash elsewhere. He denies shortness of breath, eye involvement, throat involvement, tongue swelling, drainage from lesions, or erythema. ROS Const Constitutional: No body ache, chills, excessive sweating, fatigue, fever(s), frequent falls, headache(s), snoring, weight change, sleep problems, abnormal sleep pattern or change in appetite Eyes Eyes: No blurry vision, change in vision, eye pain or Light sensitivity ENT ENT: No abnormal hearing, ear or mastoid pain, tinnitus, nasal congestion, headache(s), neck pain or sore throat Resp Respiratory: No cough, shortness of breath, snoring or wheezing Cardio Cardiology: No chest pain at rest, chest pain with exertion, excessive sweating, shortness of breath, dyspnea on exertion, lightheadedness, orthopnea or palpitations Gastro GI: No abdominal pain, change in bowel habits, constipation, cramping, diarrhea, nausea/dyspepsia or vomiting Genitourinary Male: No burning urination, painful urination, urinary incontinence or urinary frequency Musc Musculoskeletal: No abnormal gait, joint pain, back pain, limited range of motion, neck pain, numbness or tingling Skin Skin: Positive for other (rash bilat ankles, arms legs ); No dry skin, redness, lesions, itchy eyes, rash or wounds Neuro Neurology: No abnormal gait, abnormal hearing, frequent falls, headache(s), memory loss, numbness or tingling Psych Psychiatric: No abnormal sleep pattern, No anxiety, No change in appetite, No irritability, No memory loss and No Thoughts of harming yourself/Others Endo Endocrine: No cold intolerance, excessive sweating, fatigue, flushing, heat intolerance, increased thirst/drinking, increased hunger or weight change Aller/Imm Allergy/Immunologic: No itchy eyes, seasonal allergy symptoms, hives or wheezing Tony/Lymp Hematologic/Ly (more content not included)... Normal [facility] Basophil percentageOrdered B y: Devon Brown on 08-25-2022 Bilirubin [Mass/Vol] 1.10 mg/dL 0.20-1.00 [facility] Comment on above: For patients on eltr ombopag therapy, use of Dimension Dysart TBIL is not recommended. Chloride [Moles/Vol] 106 mmol/L 98-107 [facility] Glucose [Mass/Vol] 93 mg/dL 74-106 [facility] Potassium [Moles/Vol] 4.1 mmol/L 3.5-5.1 [facility] Protein [Mass/Vol] 7.5 g/dL 6.4-8.2 [facility] Sodium [Moles/Vol] 139 mmol/L 136-145 [facility] Laboratory - Chemistry and C hemistry - challengeOrdered By: Devon Beltran on 08-25-2022 ALP [Catalytic activity/Vol] 76 U/L 45-117 [facility] ALT [Catalytic activity/Vol] 36 U/L 16-61 [facility] CO2 [Moles/Vol] 28.0 mmol/L 21.0-32.0 [facility] Globulin (S) [Mass/Vol] 3.7 g/dL 2.2-4.2 [facility] Urea nitrogen/Creatinine [Mass ratio] 17.0 mg/mg 10-20 [facility] No Panel InformationOrdered By: Devon Beltran on 08-25-2022 Estimated GFR (MDRD) Amer 85 mL/min >60 [facility] Comment on above: GFR Calc Estimated GFR (MDRD) Non-Af Amer 70 mL/min >60 [facility] Comment on above: Non- GFR Calc Serum or plasma albumin yoshi urement (mass/volume)Ordered By: Devon Beltran on 08-25-2022 Albumin [Mass/Vol] 3.8 g/dL 3.2-5.0 [facility] Serum or plasma albumin/glob ulin mass ratioOrdered By: Devon Beltran on 08-25-2022 Albumin/Globulin [Mass ratio] 1.0 {ratio} 0.9-2.4 [facility] Serum or plasma calcium yoshi urement (mass/volume)Ordered By: Devon Beltran on 08-25-2022 Calcium [Mass/Vol] 9.4 mg/dL 8.5-10.1 [facility] Serum or plasma creatinine m easurement (mass/volume)Ordered By: Devon Beltran on 08-25-2022 Creatinine [Mass/Vol] 1.06 mg/dL 0.70-1.30 [facility] Comment on above: The validity of the calculated GFR & GFRAA in patients over 70 years has not been determined. Clinical correlation is essential. Serum or plasma urea nitroge n measurement (mass/volume)Ordered By: Devon Beltran on 08-25-2022 Urea nitrogen [Mass/Vol] 18 mg/dL 7-18 [facility] Thin prep Papanicolaou smear with manual screeningOrdered By: Devon Beltran on 08-25-2022 Thin prep Papanicolaou smear with manual screening 25 U/L 15-37 [facility] Thin prep Papanicolaou smear with manual screening 5 5-15 [facility] Basophil percentageon 2022 Cholesterol [Mass/Vol] 118 mg/dL <200 [facility] Comment on above: <200 mg/dL Desirable 200-240 mg/dL Borderline >240 mg/dL High Risk Triglyceride [Mass/Vol] 74 mg/dL <199 [facility] Comment on above: The drugs N-Acetylcy steine and Metamizole may falsely depress this assay.Serum Triglycerides Reference Interval Normal <150 mg/dL Borderline high 150 - 199 mg/dL High 200 - 499 mg/dL Very High > or = 500 mg/dL Serum or plasma cholesterol in HDL measurement (mass/volume)on 08-18-2022 Cholesterol in HDL [Mass/Vol] 58 mg/dL >40 [facility] Comment on above: The drugs N-Acetylcy steine and Metamizole may falsely depress this assay. Reference Range HDL <40 mg/dL Low HDL Cholesterol HDL >or= 60 mg/dL High HDL Cholesterol Serum or plasma cholesterol in VLDL measurement (mass/volume)on 08-18-2022 Cholesterol in VLDL [Mass/Vol] 15 mg/dL 5-40 [facility] Serum or plasma low density lipoprotein (LDL) cholesterol measurement (mass/volume)on 08-18-2022 Cholesterol in LDL [Mass/Vol] 45 mg/dL 0-130 [facility] EP NURSE PROCEDURE REPORTon 11-09-2021 Ordered by an unspecified provider. [facility] Basophil percentageon 2021 Chloride [Moles/Vol] 105 mmol/L 98-107 [facility] Work Phone: Glucose [Mass/Vol] 111 mg/dL 74-106 [facility] Work Phone: Comment on above: Fasting Glucose resu lt from 100 to 125 mg/dL suggests IMPAIRED HOMEOSTASIS per A.D.A. criteria. Potassium [Moles/Vol] 4.3 mmol/L 3.5-5.1 [facility] Work Phone: Sodium [Moles/Vol] 139 mmol/L 136-145 [facility] Work Phone: WBC (Bld) [#/Vol] 10.4 10*3/uL 4.4-11.0 [facility] Work Phone: Blood erythrocytes count (nu mber/volume)on 10-23-2021 RBC (Bld) [#/Vol] 4.97 10*6/uL 4.6-6.2 [facility] Work Phone: Blood hemoglobin measurement (mass/volume)on 10-23-2021 Hemoglobin (Bld) [Mass/Vol] 14.9 g/dL 13.0-16.5 [facility] Work Phone: Blood platelet mean volumeon 10-23-2021 Platelet mean volume (Bld) [Entitic vol] 10.3 fL 6.2-12.0 [facility] Work Phone: Determination of erythrocyte mean corpuscular volume (MCV)on 10-23-2021 MCV (RBC) [Entitic vol] 90.5 fL 80-94 [facility] Work Phone: Hematocrit Auto (Bld) [Volum e fraction]on 10-23-2021 Hematocrit (Bld) [Volume fraction] 45.0 % 40-54 [facility] Work Phone: Laboratory - Chemistry and C hemistry - challengeon 10-23-2021 CO2 [Moles/Vol] 29.0 mmol/L 21.0-32.0 [facility] Work Phone: Urea nitrogen/Creatinine [Mass ratio] 19.5 mg/mg 10-20 [facility] Work Phone: Laboratory - Hematology and Cell countson 10-23-2021 Erythrocyte distribution width (RBC) [Entitic vol] 43.8 fL 35.1-43.9 [facility] Work Phone: Erythrocyte distribution width (RBC) [Ratio] 13.1 % 11.6-14.6 [facility] Work Phone: MCH (RBC) [Entitic mass] 30.0 pg 27.0-32.0 [facility] Work Phone: MCHC Auto (RBC) [Mass/Vol]on 10-23-2021 MCHC (RBC) [Mass/Vol] 33.1 g/dL 32-36 [facility] Work Phone: No Panel Informationon 10-23 Estimated GFR (MDRD) Amer 72 mL/min >60 [facility] Work Phone: Comment on above: GFR Calc Estimated GFR (MDRD) Non-Af Amer 59 mL/min >60 [facility] Work Phone: Comment on above: Non- GFR Calc Platelets bldon 10-23-2021 Platelets (Bld) [#/Vol] 220 10*3/uL 150-450 [facility] Work Phone: Serum or plasma calcium yoshi urement (mass/volume)on 10-23-2021 Calcium [Mass/Vol] 9.2 mg/dL 8.5-10.1 [facility] Work Phone: Serum or plasma creatinine m easurement (mass/volume)on 10-23-2021 Creatinine [Mass/Vol] 1.23 mg/dL 0.70-1.30 [facility] Work Phone: Comment on above: The validity of the calculated GFR & GFRAA in patients over 70 years has not been determined. Clinical correlation is essential. Serum or plasma urea nitroge n measurement (mass/volume)on 10-23-2021 Urea nitrogen [Mass/Vol] 24 mg/dL 7-18 [facility] Work Phone: Thin prep Papanicolaou smear with manual screeningon 10-23-2021 Thin prep Papanicolaou smear with manual screening 5 5-15 [facility] Work Phone: Vital Signs Date Time Vital Sign Value Performing Clinician Jak alfred 06-04-2024 14:54-0400 Body height 167.6 cm Zhou Prince MD Work Phone: [facility] [email or web address] 06-04-2024 14:54-0400 Body mass index (BMI) [Ratio] 24.28 kg/m2 Zhou Prince MD Work Phone: [facility] [email or web address] 06-04-2024 14:54-0400 Body weight 68.22 kg Zhou Prince MD Work Phone: [facility] [email or web address] 06-04-2024 14:54-0400 Diastolic blood pressure 58 mm[Hg] Zhou Prince MD Work Phone: [facility] [employer] 06-04-2024 14:54-0400 Heart rate 60 /min Zhou Prince MD Work Phone: [facility] [email or web address] 06-04-2024 14:54-0400 SaO2% (BldA) [Mass fraction] 97 % Zhou Prince MD Work Phone: [facility] [email or web address] 06-04-2024 14:54-0400 Systolic blood pressure 114 mm[Hg] Zhou Prince MD Work Phone: [facility] [employer] 06-07-2023 14:14-0400 Body height 167.6 cm Zhou Prince MD Work Phone: [facility] [employer] 06-07-2023 14:14-0400 Body mass index (BMI) [Ratio] 23.73 kg/m2 Zhou Prince MD Work Phone: [facility] [email or web address] 06-07-2023 14:14-0400 Body weight 66.68 kg Zhou Prince MD Work Phone: [facility] [email or web address] 06-07-2023 14:14-0400 Diastolic blood pressure 58 mm[Hg] Zhou Prince MD Work Phone: [facility] [employer] 06-07-2023 14:14-0400 Heart rate 63 /min Zhou Prince MD Work Phone: [facility] 06-07-2023 14:14-0400 SaO2% (BldA) [Mass fraction] 97 % Zhou Prince MD Work Phone: [facility] 06-07-2023 14:14-0400 Systolic blood pressure 120 mm[Hg] Zhou Prince MD Work Phone: [facility] 08-25-2022 09:33-0400 Body height 167.[address] Devon Beltran Work Phone: [facility] 08-25-2022 09:33-0400 Body mass index (BMI) [Ratio] 22.7 kg/m2 Dr. Devon Beltran Work Phone: [facility] 08-25-2022 09:33-0400 Body temperature 96.5 [degF] Dr. Devon Beltran Work Phone: [facility] 08-25-2022 09:33-0400 Body weight 63.[address] Devon Beltran Work Phone: [facility] 08-25-2022 09:33-0400 Diastolic blood pressure 60 mm[Hg] Dr. Devon Beltran Work Phone: [facility] 08-25-2022 09:33-0400 Heart rate 54 /min Dr. Devon Beltran Work Phone: [facility] 08-25-2022 09:33-0400 Respiratory rate 16 /min Dr. Devon Beltran Work Phone: [facility] 08-25-2022 09:33-0400 SaO2% (BldA) [Mass fraction] 99 % Dr. Devon Beltran Work Phone: [facility] 08-25-2022 09:33-0400 Systolic blood pressure 102 mm[Hg] Dr. Devon Beltran Work Phone: [facility] 11-09-2021 10:45-0400 Diastolic blood pressure 61 mm[Hg] Zhou Prince MD Work Phone: [facility] 11-09-2021 10:45-0400 Heart rate 50 /min Zhou Prince MD Work Phone: [facility] 11-09-2021 10:45-0400 Respiratory rate 16 /min Zhou Prince MD Work Phone: [facility] 11-09-2021 10:45-0400 SaO2% (BldA) [Mass fraction] 99 % Zhou Prince MD Work Phone: [facility] 11-09-2021 10:45-0400 Systolic blood pressure 109 mm[Hg] Zhou Prince MD Work Phone: [facility] 11-09-2021 10:15-0400 Body temperature 97.2 [degF] Zhou Prince MD Work Phone: [facility] Encounters Encounter Date Encounter Type Care Provider Facility Start: 06-08-2024 End: 06-08-2024 Refill Sofía Giriunas PA-C Work Phone: [facility] [employer] Comment on above: LV dysfunction Start: 06-04-2024 End: 06-04-2024 Office outpatient visit 25 minutes Zhou Prince MD Work Phone: [facility] [employer] Comment on above: LV dysfunction; Hyperlipidemia, unspecified hyperlipidemia type Start: 06-04-2024 End: 06-04-2024 [facility]ly [facility] Start: 04-09-2024 End: 04-09-2024 ambulatory [facility] Start: 03-07-2024 End: 03-07-2024 ambulatory [facility] Start: 02-23-2024 End: 02-23-2024 Refill Sofía Giriunas PA-C Work Phone: [facility] [employer] Comment on above: LV dysfunction; Hyperlipidemia, unspecified hyperlipidemia type Start: 02-23-2024 End: 02-23-2024 Refill Sofía Giriunas PA-C Work Phone: [facility] [employer] Comment on above: LV dysfunction; Hyperlipidemia, unspecified hyperlipidemia type Start: 02-01-2024 End: 02-01-2024 ambulatory Devon Beltran Facility:[facility] Start: 01-19-2024 End: 01-20-2024 Telephone encounter Zhou Prince MD Work Phone: [facility] Comment on above: Other Start: 01-04-2024 End: 01-04-2024 ambulatory Devon Collin Beltran Facility:[facility] Start: 12-20-2023 End: 12-20-2023 ambulatory Daisy Blackstone Facility:[facility] Start: 12-06-2023 End: 12-06-2023 ambulatory DEVON [facility] Start: 11-28-2023 End: 11-28-2023 Emergency department patient visit Devon Collin Beltran Facility:[facility] Start: 09-21-2023 End: 09-21-2023 ambulatory Devonisacc Beltran Facility:[facility] Start: 09-21-2023 End: 09-21-2023 ambulatory Devonisacc Beltran Facility:[facility] Start: 09-05-2023 End: 09-12-2023 Telephone encounter Zhou Prince MD Work Phone: [facility] Start: 09-05-2023 End: 09-05-2023 ambulatory DEVON BELTRAN [facility] Start: 07-05-2023 End: 07-05-2023 ambulatory Devon Beltran Facility:[facility] Start: 06-07-2023 End: 06-07-2023 Office outpatient visit 25 minutes Zhou Prince MD Work Phone: [facility] Start: 05-30-2023 Telephone encounter Zhou Prince MD Work Phone: [facility] Comment on above: Orders Start: 02-11-2023 Refill Zhou sosa MD Work Phone: [facility] Comment on above: LV dysfunction; Hyperlipidemia, unspecified hyperlipidemia type Start: 08-25-2022 End: 08-25-[address] Devon Beltran Work Phone: [facility] Work Phone: Start: 08-25-2022 End: 08-25-[address] Devon Beltran Work Phone: [facility] Start: 08-25-2022 End: 08-25-[address] Devon Beltran Work Phone: [facility] Work Phone: Start: 08-18-2022 End: 08-18-2022 ambulatory [facility] Work Phone: Start: 08-18-2022 End: 08-18-2022 Patient encounter procedure [facility] Work Phone: Start: 08-03-2022 Refill Chantel O'Shell A PRN - ACTUARY CLERK Work Phone: [facility] Comment on above: Hyperlipidemia, unsp ecified hyperlipidemia type (Primary Dx); LV dysfunction Start: 11-09-2021 End: 11-09-2021 ambulatory Zhou [facility] Start: 11-09-2021 End: 11-09-2021 Subsequent hospital visit by physician Zhou Prince MD Work Phone: [facility] [employer] Comment on above: Arrived Start: 10-23-2021 End: 10-23-2021 ambulatory [facility] Work Phone: Start: 10-23-2021 End: 10-23-2021 [facility] Date Procedure Procedure Detail Performing Clinician Start: 08-18-2022 Lipid 1996 panel - S jurgen or Plasma Zhou Prince MD Work Phone: Start: 11-09-2021 Ecg routine ecg w/le ast 12 lds w/i&r Daisy Mg [employer]AMP[employer]INE TEAM COACH - ACTUARY CLERK Work Phone: Start: 11-09-2021 EP NURSE PROCEDURE REPORT Physician Generic Start: 11-09-2021 Ecg routine ecg w/le ast 12 lds w/i&r Chantel O'Shell [employer]AMPOLINE TEAM COACH - ACTUARY CLERK Work Phone: Start: 10-23-2021 Plain chest X-ray Plan of Treatment Date Care Activity Detail Author Start: 08-19-2027 Lipid panel Lipid Panel [facility]: 10-15-2024 Influenza vaccination Influenza Vaccine (Season Ended) [facility] Start: 09-03-2024 End: 09-03-2024 Professional / ancillary services management 09/03/2024 10:30 AM EDT Ancillary Procedure [facility] - [place] [address] [place] [address] [facility] [place] Start: 06-04-2024 End: 06-04-2024 Patient encounter procedure [facility] Start: 06-04-2024 End: 06-04-2024 Professional / ancillary services management 06/04/2024 2:30 PM EDT Ancillary Procedure [facility] [place] [address] [place] [address] [facility] [place] Start: 03-07-2024 End: 03-07-2024 Professional / ancillary services management 03/07/2024 4:30 PM EST Ancillary Procedure [facility] [place] [address] [facility] [place] [address] [facility] Start: 02-15-2024 Medicare Advantage Annual Wellness Visit Medicare Advantage Annual Wellness Visit [facility] Start: 12-06-2023 End: 12-06-2023 Professional / ancillary services management 12/06/2023 1:00 PM EDT Ancillary Procedure [facility] [address] [place] [phone] [facility] Start: 2023 COVID-19 Vaccine ( season) COVID-19 Vaccine ( season) [facility] Start: 2023 Influenza vaccination [facility] Start: 09-07-2023 End: 09-07-2023 Professional / ancillary services management 09/07/2023 9:00 AM EDT Ancillary Procedure [facility] [address] [facility] [place] [phone] [facility] Start: 08-26-2023 Creatinine measurement Creatinine Level [facility] Start: 08-26-2023 Potassium measurement Potassium Level [facility] Start: 08-04-2023 Creatinine measurement Creatinine Level [facility] Start: 08-04-2023 Potassium measurement Potassium Level [facility] Start: 06-14-2023 End: 06-14-2023 Patient encounter procedure 06/14/2023 1:00 PM EDT Office Visit [facility] [address] [place] [address] Zhou Prince MD [address] [address] [facility] Start: 06-07-2023 End: 06-07-2023 Patient encounter procedure [facility] Start: 06-07-2023 End: 06-07-2023 Professional / ancillary services management [facility] Start: 04-28-2023 End: 04-28-2023 Professional / ancillary services management 04/28/2023 7:30 AM EDT Ancillary Procedure [facility] [address] [place] [address] [facility] Start: 02-14-2023 Medicare Advantage Annual Wellness Visit Medicare Advantage Annual Wellness Visit [facility] Start: 10-26-2022 Creatinine measurement Creatinine Level [facility] Start: 10-26-2022 Potassium measurement Potassium Level [facility] Start: 10-15-2022 COVID-19 Vaccine ( season) COVID-19 Vaccine ( season) [facility] Start: 10-15-2022 Influenza vaccination [facility] Start: 10-04-2022 End: 10-04-2022 Professional / ancillary services management 10/04/2022 10:30 AM EDT Ancillary Procedure [facility] [address] [place] [address] [facility] Start: 08-25-2022 Patient referral [facility] Work Phone: Start: 08-03-2022 End: 08-04-2023 Lipid 1996 panel - Serum or Plasma Lipid panel Lab Routine Hyperlipidemia, unspecified hyperlipidemia type Expected: 08/03/2022 (Approximate), Expires: 08/04/2023 [facility] [email or web address] [facility] Work Phone: Comment on above: Expected: 08/03/2022 (Approximate), Expi res: 08/04/2023 Start: 02-16-2022 End: 02-16-2022 Patient encounter procedure 02/16/2022 Office Visit Cardiology Zhou Prince MD [address] [facility] [address] [place] [address] [facility] Start: 12-18-2021 End: 12-18-2021 Patient encounter procedure 12/18/2021 Office Visit Cardiology Zhou Prince MD [address] [facility] [address] [place] [address] [facility] Start: 11-26-2021 End: 11-26-2021 Nursing evaluation of patient and report 11/26/2021 Nurse Only Cardiology Deena [facility] RN [facility] Start: 09-14-2021 Influenza vaccination Flu vaccine (#1) [facility] Start: 06-01-2019 Lipid panel Lipids [facility] Start: 08-06-2018 Annual Wellness Visit (AWV) Annual Wellness Visit (AWV) [facility] Start: 10-15-2010 RSV Immunization for Adults (1 - 1-dose 75+ series) RSV Immunization for Adults (1 - 1-dose 75+ series) [facility] Start: 10-15-2000 Pneumococcal 65+ years Vaccine (1 - PCV) Pneumococcal 65+ years Vaccine (1 - PCV) [facility] Start: 1995 RSV Immunization aged 60 or older (1 - 1-dose 60+ series) RSV Immunization aged 60 or older (1 - 1-dose 60+ series) [facility] Start: 10-15-1985 Shingles vaccine (1 of 2) Shingles vaccine (1 of 2) [facility] Start: 10-15-1985 Zoster Vaccines (1 of 2) Zoster Vaccines (1 of 2) [facility] Start: 10-15-1954 DTaP/Tdap/Td vaccine (1 - Tdap) DTaP/Tdap/Td vaccine (1 - Tdap) [facility] Start: 10-15-1954 DTaP/Tdap/Td Vaccines (1 - Tdap) DTaP/Tdap/Td Vaccines (1 - Tdap) [facility] Start: 10-15-1954 Pneumococcal Vaccine: 50+ Years (1 of 2 - PCV) Pneumococcal Vaccine: 50+ Years (1 of 2 - PCV) [facility] Start: 1947 Depression Screen Depression Screen [facility] Start: 1947 Depression Screening Depression Screening [facility] Start: 10-15-1941 Pneumococcal Vaccine: 65+ Years (1 - PCV) Pneumococcal Vaccine: 65+ Years (1 - PCV) [facility] Start: 10-15-1941 Pneumococcal Vaccine: 65+ Years (1 of 2 - PCV) Pneumococcal Vaccine: 65+ Years (1 of 2 - PCV) [facility] Start: 04-14-1936 COVID-19 Vaccine (#1) COVID-19 Vaccine (#1) [facility] Start: 1935 Echocardiography Echocardiogram [facility] Start: 1935 Lipid panel Lipid Panel [facility] Start: 1935 Medicare Advantage Annual Wellness Visit (AWV) Medicare Advantage Annual Wellness Visit (AWV) [facility] End: 11-09-2021 Catheterization and angiography procedure details panel Diagnostic Cardiac Barrel Inspector Procedure Cardiac Cath Routine One Time for 1 Occurrences starting 11/09/2021 until 11/09/2021 [facility] Work Phone: Comment on above: One Time for 1 Occurrences starting 10/16 until 11/09/2021 Electrocardiogram, 12-lead S [facility] Work Phone: End: 11-09-2021 ELECTROPHYSIOLOGY DEVICE ELECTROPHYSIOLOGY DEVICE Echocardiography Routine One Time for 1 Occurrences starting 11/09/2021 until 11/09/2021 [facility] Work Phone: Comment on above: One Time for 1 Occurrences starting 10/16 until 11/09/2021 Oxygen therapy [[facility] Data Set] Initiate Oxygen Therapy Protocol Respiratory Care Routine As Needed until discontinued starting 11/09/2021 [facility] Work Phone: Comment on above: As Needed until discontinued starting Patient referral [facility] Work Phone: Payers Date Payer Category Payer Self-pay [id number] 2022 Medicare [employer] [id number] 2022-Present [address] [place] [address] Medicare HMO [id number] 2022 Medicare O [employer] [id number] 2015 Medicare [id number] 1935 Unknown [id number] Unknown Unknown [id number] Unknown [id number] Unknown [id number] Unknown [id number] Unknown [id number] Unknown [id number] Unknown [id number] Social History Date Type Detail Facility Start: 09-11-2015 End: 08-25-2022 Tobacco smoking status NMIS Unknown if ever smoked [facility] Start: 09-01-1936 Sex Assigned At Male W [facility] Work Phone: Start: 06-21-2016 Tobacco smoking stat us NMIS Never smoked tobacco [facility] Start: 06-21-2016 Tobacco use and exposure Smokeless tobacco non-user [facility] Work Phone: Start: 12-15-2020 End: 06-07-2022 Alcohol intake Current drinker of alcohol (finding) [facility] Work Phone: Start: 06-21-2016 History SDOH Alcohol Comment Maybe 2x a month [facility] Work Phone: Start: 1935 Sex Assigned At Not on file S [facility] Work Phone: Start: 10-30-2021 End: 11-09-2021 Exposure to SARS-CoV-2 (event) Not sure [facility] Start: 06-07-2022 History of Social function [facility] Start: 06-07-2022 Tobacco use panel [facility] Start: 06-07-2022 Alcohol Comment occasional/wine or b eer [facility] Start: 03-03-2022 Gender identity Identifies as male gender (finding) [facility] Start: 03-03-2022 Sexual orientation Heterosexual (fin ding) [facility] Start: 09-14-2021 Sex Male (finding) [facility] alth Medical Equipment Procedure Code Equipment Code Equipment Origin al Text Equipment Identifier Dates Abbo-Card [id number] Durata [id number] Start: 01-17-2012 Abbo-Card [id number] [place] [id number] [facility] Start: 11-08-2021 Clinical Notes 11-09-2021 to 06-08-2024 Telephone Encounter - Ary Kraus RN - 06/08/2024 8:30 AM EDTTelephone Encounter - Ary Kraus RN - 06/08/2024 8:30 AM Danilo Prince MD - 06/04/2024 3:15 PM EDTDischarge Instructions Note Date & Type Note Facility 06-08-2024 Telephone encounter Note Last OV- 06/04/24 CMP- 08/25/22 [facility] 06-08-2024 Miscellaneous Notes Last OV- 06/04/24 CMP- 08/25/22 documented in this encounter [facility] 06-04-2024 History of Present illness Narrative [facility] Cardiology Note Chief Complaint: Chief Complaint Patient presents with Annual Exam History of Present Illness: Efraín Loyd is a 88 y.o. male presents for follow-up status post ICD implantation and the primary prevention of sudden cardiac . Overall from a cardiac standpoint has no complaints whatsoever. No lightheadedness presyncope or syncope. He was in [place] in the winter and while there in April 10 had an episode of nonsustained ventricular tachycardia accelerating into the ventricular fibrillation zone spontaneously terminating. No significant anginal complaints. His reports he actually he is 50 years old. 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 LV dysfunction Old SC (myocardial infarction) 2011 Anterior Presence of stent in LAD coronary artery 07/05/02 : AYLIN to LAD, 10/18/11: AYLIN to ISS LAD Past Surgical History Past Surgical History: Procedure Laterality Date CARDIAC DEFIBRILLATOR PLACEMENT CARDIAC PROCEDURE CORONARY ANGIOPLASTY Family History Family History Problem Relation Name Age of Onset Heart failure Mother Heart Surgery Mother Pacemaker Brother Social History Social History Tobacco Use Smoking status: Never Smokeless tobacco: Never Substance Use Topics Alcohol use: Yes Comment: occasional/wine or beer Drug use: No Comment: Caffeine: 1 and a half cups of coffee a day Allergies: No Known Allergies Medications: Current Outpatient Medications: aspirin 81 MG EC tablet, Take 81 mg by mouth daily., Disp: , Rfl: carvedilol (Coreg) 6.25 MG tablet, TAKE 1 TABLET BY MOUTH IN THE MORNING AND 1 TAB IN THE EVENING WITH MEALS, Disp: 180 tablet, Rfl: 0 carvedilol (Coreg) 6.25 MG tablet, Take 1 tablet (6.25 mg) by mouth 2 times daily (with meals)., Disp: 180 tablet, Rfl: 1 losartan (Cozaar) 50 MG tablet, Take 1 tablet by mouth once daily, Disp: 90 tablet, Rfl: 0 losartan (Cozaar) 50 MG tablet, Take 1 tablet (50 mg) by mouth daily., Disp: 90 tablet, Rfl: 1 nitroglycerin (Nitrostat) 0.4 MG SL tablet, Place 0.4 mg under the tongue as needed., Disp: , Rfl: simvastatin (Zocor) 40 MG tablet, Take 1 tablet by mouth nightly, Disp: 90 tablet, Rfl: 0 simvastatin (Zocor) 40 MG tablet, Take 1 tablet (40 mg) by mouth Nightly., Disp: 90 tablet, Rfl: 1 spironolactone (Aldactone) 25 MG tablet, Take 1/2 (one-half) tablet by mouth once daily, Disp: 45 tablet, Rfl: 0 spironolactone (Aldactone) 25 MG tablet, Take 0.5 tablets (12.5 mg) by mouth daily., Disp: 45 tablet, Rfl: 1 Review of Systems: Review of Systems Constitutional: Negative. HENT: Negative. Eyes: Negative. Respiratory: Negative. Cardiovascular: Negative. Gastrointestinal: Negative. Endocrine: Negative. Genitourinary: Negative. Musculoskeletal: Negative. Skin: Negative. Allergic/Immunologic: Negative. Neurological: Negative. Hematological: Negative. Psychiatric/Behavioral: Negative. Physical Examination: Vitals: Vitals: 06/04/24 1454 BP: 114/58 BP Location: Left arm Patient Position: Sitting BP Cuff Size: Adult Pulse: 60 SpO2: 97% Weight: 150 lb 6.4 oz (68.2 kg) Height: 5' 6 (1.676 m) Body mass index is 24.28 kg/m . Physical Exam Vitals reviewed. Constitutional: Appearance: Normal appearance. HENT: Head: Normocephalic. Right Ear: External ear normal. Left Ear: External ear normal. Nose: Nose normal. Mouth/Throat: Mouth: Mucous membranes are moist. Eyes: Pupils: Pupils are equal, round, and reactive to light. Cardiovascular: Rate and Rhythm: Normal rate and regular rhythm. Heart sounds: No murmur heard. Pulmonary: Effort: No respiratory distress. Musculoskeletal: General: Normal range of motion. Skin: General: Skin is warm and dry. Coloration: Skin is not jaundiced. Neurological: General: No focal deficit present. Mental Status: He is alert. Motor: No weakness. Gait: Gait normal. Psychiatric: Mood and Affect: Mood normal. Behavior: Behavior normal. Thought Content: Thought content normal. Judgment: Judgment normal. Laboratory Tests: Lab Results Component Value Date WBC 10.4 10/26/2021 HGB 14.9 10/26/2021 MCV 90.5 10/26/2021 Lab Results Component Value Date GLUCOSE 93 08/25/2022 CALCIUM 9.4 08/25/2022 NA 139 08/25/2022 K 4.1 08/25/2022 CO2 28 08/25/2022 CL 106 08/25/2022 BUN 18 08/25/2022 CREATININE 1.06 08/25/2022 @[facility]@ Lab Results Component Value Date CHOL 118 08/18/2022 Lab Results Component Value Date TRIG 74 08/18/2022 Lab Results Component Value Date HDL 58 08/18/2022 Lab Results Component Value Date LDLCALC 45 08/18/2022 Assessment and Plan: ICD: Very well-healed. Lead panel is remain excellent. Normal function is observed. Will follow device clinic per routine. Ventricular tachycardia: 1 episode on April 10. He will continue his beta-blockade in the form of carvedilol 6.25 mg twice daily. Would not recommend antiarrhythmic drug at this point. Congestive failure: Warm and dry today. He maintains losartan 50, Aldactone 12.5. Coronary artery disease: Status post myocardial infarction. Maintains aspirin 81 and simvastatin 40. No anginal complaints. Given his age she is doing very well. documented in this encounter [facility] [email or web address] 02-23-2024 Telephone encounter Note OV 05/2023 MERISSA FU 06/04/24 [facility] [email or web address] 02-23-2024 Miscellaneous Notes OV 05/2023 MERISSA FU 06/04/24 documented in this encounter [facility] [email or web address] 02-01-2024 Note [facility] Medical Records Department [address] [place] [address] History Physical Exam 02/01/24 1002 MR#: [id number] Acct: [id number] Name: EFRAÍN LOYD Rep #: [id number] : 1935 88 From: Mark Muñiz MD PCP: Dr. Devon Beltran, DO Status:[facility] Location: [place] [address] HPI - General General Date of Service: 02/01/24 Chief Complaint: Phimosis HPI Narrative EFRAÍN LOYD, is a 88 M who presents for a circumcision for phimosis. [facility] Medical History Loss of hearing Wears glasses Wears dentures Alcohol use High cholesterol Easy bruising Dietary restriction Non-smoker Hypertension History of stress test Cardiology follow-up encounter History of CHF (congestive heart failure) History of heart attack TIA (transient ischemic attack) Hx of fracture of hip Cardiac defibrillator in place Home Medications ???Medication ???Instructions ???Recorded ???Last Taken ???Type aspirin 81 mg chewable tablet 81 mg PO DAILY@0800 09/11/15 01/24/24 History nitroglycerin 0.4 mg sublingual 0.4 mg sublingual Q5M PRN Chest 09/11/15 Unknown History tablet Pain simvastatin 40 mg tablet 40 mg PO QHS 09/11/15 Unknown History spironolactone 25 mg tablet 12.5 mg PO DAILY 09/11/15 Unknown History losartan 50 mg tablet 50 mg PO DAILY 08/25/22 02/01/24 History carvedilol 6.25 mg tablet 6.25 mg PO BID 01/19/24 02/01/24 06:00 History finasteride 5 mg tablet 5 mg PO DAILY 01/19/24 Unknown History tamsulosin 0.4 mg capsule (Flomax) 0.4 mg PO BID 01/19/24 02/01/24 History Allergy/AdvReac Type Severity Reaction Status Date / Time No Known Allergies Allergy Verified 02/01/24 08:09 Family History Mother CAD (coronary artery disease) Grandfather CAD (coronary artery disease) Brother Prostate cancer Sister Colon cancer Sister Throat cancer Surgical History History of coronary artery stent placement History of cystoscopy Hx of right cataract extraction Hx of left cataract extraction Social History adopted: No household members: spouse housing: house number of children: 1 current occupational status: retired pets and animals: No Smoking Status: Never smoker second hand exposure: No alcohol intake: current alcohol intake frequency: holidays/special occasions only substance use type: does not use caffeine: Yes (1-2) Type: coffee what type of physical activity do you participate in: walking frequency: daily seatbelt use: always do you feel safe at home: Yes Vital Signs Vital Signs Vital Signs: 02/01/24 08:10 02/01/24 08:10 02/01/24 08:28 Temperature 97.5 F L 97.5 F L Temperature Source Temporal Pulse Rate 61 61 Respiratory Rate 16 16 Respiratory Pattern Normal Blood Pressure 109/60 109/60 Blood Pressure Mean 76 Blood Pressure Source Monitor Blood Pressure Position Semi-Fowlers Blood Pressure Location Right Arm Pulse Ox 100 100 Oxygen Delivery Method Room Air Weight Weight: 64.41 kg Body Mass Index (BMI) 22.8 02/01/24 1003 Cosigner Signature (if applicable): CC: Dr. Devon Beltran, DO; Dr. Mark Muñiz MD Signed [facility] 01-20-2024 Telephone encounter Note Faxed over completed form to [facility] Pre Adm Testing Dept. Paperwork sent to scanning thereafter. [facility] [email or web address] 01-20-2024 Miscellaneous Notes Faxed over completed form to [facility] Pre Adm Testing Dept. Paperwork sent to scanning thereafter. Placed completed form on Sadie's desk Device info completed on form. Placed on Dr. Prince's desk to review and sign Received via fax Urgent Stat Fax re: office paperwork and device info. Will give to Nenita to fill out and have doctor sign thereafter. documented in this encounter [facility] 01-20-2024 Telephone encounter Note Placed completed form on Sadie's desk [facility] 01-19-2024 Telephone encounter Note Device info completed on form. Placed on Dr. Prince's desk to review and sign [facility] 01-19-2024 Telephone encounter Note Received via fax Urgent [facility] Fax re: office paperwork and device info. Will give to Nenita to fill out and have doctor sign thereafter. [facility] 09-05-2023 Telephone encounter Note Unscheduled ICD Remote today for VT episode on 09.02.23 @ 10:44 am: sudden onset VT HR 206 bpm, lasting 5 sec then ATP x 1 successfully converted to sinus. Tried to reach patient to see if he had any symptoms, Left message to return call. [facility] 09-05-2023 Miscellaneous Notes Unscheduled ICD Remote today for VT episode on 09.02.23 @ 10:44 am: sudden onset VT HR 206 bpm, lasting 5 sec then ATP x 1 successfully converted to sinus. Tried to reach patient to see if he had any symptoms, Left message to return call. documented in this encounter [facility] 06-07-2023 History of Present illness Narrative [facility] Cardiology Note Chief Complaint: Chief Complaint Patient presents with Follow-up History of Present Illness: Efraín Loyd is a 87 y.o. male presents for his yearly follow-up in the setting of cardiomyopathy status post ICD implantation 10 years ago subsequent generator change. He is back from [place] and arrived in time to see the [place]. There is no angina. He denies lower extremity edema. No significant shortness of breath. Energy level is about the same as it was last year at which time he was doing yard work on the day of his office visit. No trouble at the ICD site. He is compliant with medical therapy. He was becoming he felt a bit dehydrated as his hydrochlorothiazide was discontinued and he feels much better without it. 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 LV dysfunction Old SC (myocardial infarction) 2011 Anterior Presence of stent in LAD coronary artery 07/05/02 : AYLIN to LAD, 10/18/11: AYLIN to ISS LAD Past Surgical History Past Surgical History: Procedure Laterality Date CARDIAC DEFIBRILLATOR PLACEMENT CARDIAC PROCEDURE CORONARY ANGIOPLASTY Family History Family History Problem Relation Name Age of Onset Heart failure Mother Heart Surgery Mother Pacemaker Brother Social History Social History Tobacco Use Smoking status: Never Smokeless tobacco: Never Substance Use Topics Alcohol use: Yes Comment: occasional/wine or beer Drug use: No Comment: Caffeine: 1 and a half cups of coffee a day Allergies: No Known Allergies Medications: Current Outpatient Medications: aspirin 81 MG EC tablet, Take 81 mg by mouth daily., Disp: , Rfl: carvedilol (Coreg) 6.25 MG tablet, Take 1 tablet (6.25 mg) by mouth in the morning and 1 tablet (6.25 mg) in the evening. Take with meals., Disp: 180 tablet, Rfl: 3 losartan (Cozaar) 50 MG tablet, Take 1 tablet (50 mg) by mouth daily., Disp: 90 tablet, Rfl: 3 nitroglycerin (Nitrostat) 0.4 MG SL tablet, Place 0.4 mg under the tongue as needed., Disp: , Rfl: simvastatin (Zocor) 40 MG tablet, Take 1 tablet (40 mg) by mouth Nightly., Disp: 90 tablet, Rfl: 3 spironolactone (Aldactone) 25 MG tablet, Take 0.5 tablets (12.5 mg) by mouth daily., Disp: 45 tablet, Rfl: 3 hydroCHLOROthiazide (Microzide) 12.5 MG capsule, Take 1 capsule (12.5 mg) by mouth daily., Disp: 90 capsule, Rfl: 1 Review of Systems: Review of Systems Constitutional: Negative. Negative for activity change, chills, diaphoresis, fatigue and fever. HENT: Negative. Negative for nosebleeds and trouble swallowing. Eyes: Negative. Negative for discharge and visual disturbance. Respiratory: Negative. Negative for apnea, cough, chest tightness, shortness of breath and wheezing. Cardiovascular: Negative. Negative for chest pain, palpitations and leg swelling. Gastrointestinal: Negative. Negative for abdominal distention, abdominal pain, blood in stool, diarrhea, nausea and vomiting. Endocrine: Negative. Negative for cold intolerance and heat intolerance. Genitourinary: Negative. Negative for hematuria. Musculoskeletal: Negative. Negative for gait problem and myalgias. Skin: Negative. Negative for color change and rash. Neurological: Negative. Negative for dizziness, seizures, syncope, facial asymmetry, speech difficulty, weakness, light-headedness, numbness and headaches. Hematological: Negative. Does not bruise/bleed easily. Psychiatric/Behavioral: Negative. Negative for dysphoric mood. Physical Examination: Vitals: Vitals: 06/07/23 1414 BP: 120/58 BP Location: Left arm Patient Position: Sitting BP Cuff Size: Small adult Pulse: 63 SpO2: 97% Weight: 147 lb (66.7 kg) Height: 5' 6 (1.676 m) Body mass index is 23.73 kg/m . Physical Exam Vitals reviewed. Constitutional: Appearance: Normal appearance. HENT: Head: Normocephalic. Right Ear: External ear normal. Left Ear: External ear normal. Nose: Nose normal. Mouth/Throat: Mouth: Mucous membranes are moist. Eyes: Pupils: Pupils are equal, round, and reactive to light. Cardiovascular: Rate and Rhythm: Normal rate and regular rhythm. Heart sounds: No murmur heard. Pulmonary: Effort: No respiratory distress. Musculoskeletal: General: Normal range of motion. Right lower leg: No edema. Left lower leg: No edema. Skin: General: Skin is warm and dry. Coloration: Skin is not jaundiced. Neurological: General: No focal deficit present. Mental Status: He is alert. Motor: No weakness. Gait: Gait normal. Psychiatric: Mood and Affect: Mood normal. Behavior: Behavior normal. Thought Content: Thought content normal. Judgment: Judgment normal. Laboratory Tests: Lab Results Component Value Date WBC 10.4 10/26/2021 HGB 14.9 10/26/2021 MCV 90.5 10/26/2021 Lab Results Component Value Date GLUCOSE 93 08/25/2022 CALCIUM 9.4 08/25/2022 NA 139 08/25/2022 K 4.1 08/25/2022 CO2 28 08/25/2022 CL 106 08/25/2022 BUN 18 08/25/2022 CREATININE 1.06 08/25/2022 @[facility]@ Lab Results Component Value Date CHOL 118 08/18/2022 Lab Results Component Value Date TRIG 74 08/18/2022 Lab Results Component Value Date HDL 58 08/18/2022 Lab Results Component Value Date LDLCALC 45 08/18/2022 Assessment and Plan: ICD: Well-healed. He presents for device clinic. The plan was in good order. No significant ventricular arrhythmia. 10 years on the battery. He will follow in device clinic and see me yearly concurrent with his in office device LV dysfunction: Severe LV dysfunction yet he is warm and dry essentially class II congestive failure. He maintains carvedilol 6.25 mg twice daily losartan 50 and Aldactone 12.5. Hypertension: Under good control in the above regimen. Coronary artery disease: Stable without angina. He is status post old myocardial infarction in the anterior distribution. Maintains aspirin 81 and simvastatin 40. Overall he is doing extraordinarily well given his age and condition. I will see him yearly. documented in this encounter [facility] [email or web address] 05-30-2023 Telephone encounter Note Received a call from [facility], stating patients labs are completed and patient is awaiting new orders. I asked for lab results to be faxed to office. Patient had CBC order and lipid (July 2022) done. [facility] 05-30-2023 Miscellaneous Notes Received a call from [facility] lab, stating patients labs are completed and patient is awaiting new orders. I asked for lab results to be faxed to office. Patient had CBC order and lipid (July 2022) done. documented in this encounter [facility] 02-15-2023 Telephone encounter Note Fax to PCP office requesting labs. [facility] 02-15-2023 Miscellaneous Notes Fax to PCP office requesting labs. Spouse calling in for refills Carvedilol 6.25 mg daily Losartan 50 mg daily Simvastatin 40 mg daily Spironolactone 25 mg 0.5 tab daily. To [facility] documented in this encounter [facility] 02-11-2023 Telephone encounter Note Spouse calling in for refills Carvedilol 6.25 mg daily Losartan 50 mg daily Simvastatin 40 mg daily Spironolactone 25 mg 0.5 tab daily. To [facility] 02-11-2023 Miscellaneous Notes Spouse calling in for refills Carvedilol 6.25 mg daily Losartan 50 mg daily Simvastatin 40 mg daily Spironolactone 25 mg 0.5 tab daily. To [facility] documented in this encounter [facility] 08-03-2022 Telephone encounter Note [facility] CBC BMP Not seeing a recent lipid [facility] 08-03-2022 Miscellaneous Notes [facility] BMP Not seeing a recent lipid documented in this encounter [facility] 11-09-2021 Hospital Discharge instructions Daisy Mg APRN - ACTUARY CLERK - 11/09/2021 7:48 AM EDT Generator Change Discharge Instructions Incision Care: Keep original bandage on. Remove it on 11/14/21 . Leave incision open to air. Do not remove steri-strips (tape) from incision line if present. Do not put any creams, powders or ointments on incision. Allow steri-strips to fall off naturally. If still on 10 days post-op may remove. If you have a pressure dressing (atkins colored, elastic tape covering your shoulder) remove this when you get home. Pull the tape off slowly to avoid skin tears. There will be another dressing underneath-leave this one on for 5 days. You may take a sponge bath up until ___11/11/21 , and then you may shower. Keep dressing on until 11/14/21 Observe area for redness, swelling or drainage. If these symptoms occur, notify the device clinic immediately. . If the area around your generator/incision becomes painful to touch after early soreness has gone away, or if you experience chills or fever, notify the device clinic immediately For bleeding that does not stop or increased swelling, come to the Emergency Department. Sedation: If you have received sedation: you must have someone drive you home You should not drive a car, operate machinery, drink alcohol or perform any activity that requires alertness for the rest of the day. The effects of the sedative should resolve by tomorrow. Activity: Activity may be gradually increased as tolerated. You may resume driving in 3-4 days or as instructed by your doctor. Always avoid activity that involves rough contact with the upper chest area. Follow up care and appointments: Take all your medications as prescribed by your doctor Medication Changes Your follow up appointment is scheduled for: Date Time [address] [place] [address], [address] [place], [place], [id number] [address]. [phone] documented in this encounter [facility] Work Phone: Evaluation note No assessment inform ation available [facility] Work Phone: Evaluation note Diagnosis Automatic implantable cardioverter-defibrillator in situ documented in this encounter [facility] Work Phone: Evaluation note* Diagnosis Hyperlipidemia, unspecified hyperlipidemia type- Primary LV dysfunction Left heart failure Encounter for adjustment or management of cardiac device documented in this encounter [facility] note* Diagnosis Onset Date Resolution Status CHF (congestive heart failure) acute Dupuytren's contracture of both hands acute Heart disease acute Hypertension chronic [facility] Work Phone: Evaluation note* Diagnosis LV dysfunction Left heart failure Hyperlipidemia, unspecified hyperlipidemia type Encounter for adjustment or management of cardiac device Encounter for adjustment or management of cardiac device documented in this encounter [facility] note* Diagnosis LV dysfunction Left heart failure Hyperlipidemia, unspecified hyperlipidemia type Encounter for adjustment or management of cardiac device Encounter for adjustment or management of cardiac device documented in this encounter [facility] note* Diagnosis LV dysfunction Left heart failure Hyperlipidemia, unspecified hyperlipidemia type Encounter for adjustment or management of cardiac device documented in this encounter [facility] note* Diagnosis LV dysfunction Left heart failure Hyperlipidemia, unspecified hyperlipidemia type Encounter for adjustment or management of cardiac device documented in this encounter [facility] note* Diagnosis LV dysfunction Left heart failure Hyperlipidemia, unspecified hyperlipidemia type documented in this encounter [facility] note* Diagnosis LV dysfunction Left heart failure documented in this encounter [facility] Discharge instructionsAmbulatory Orders* Orthopedics Location: None Selected [facility] Work Phone: Advance Directives No Advanced Directives Records Found Advance Directive Response Recorded Date/ Time Living Will No September 11, 2015 12:20pm Power of Circular Saw Operator No September 10, 6 12:20pm Latest Code Status on File Code Status Date Activated Date Inactivated Comments Full Code 11/09/2021 7:18 AM Healthcare Agents on File Name Relationship Healthcare Agent Relationship Communication Lily Loyd Spouse Health Care Agent [email or web address] Healthcare Agents on File Name Relationship Healthcare Agent Relationship Communication Lily Loyd Spouse Health Care Agent [email or web address] Healthcare Agents on File Name Relationship Healthcare Agent Relationship Communication Lily Loyd Spouse Health Care Agent [email or web address] Healthcare Agents on File Name Relationship Healthcare Agent Relationship Communication Lily Loyd Spouse Health Care Agent [email or web address] Healthcare Agents on File Name Relationship Healthcare Agent Relationship Communication Lily Loyd Spouse Health Care Agent 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 EDITOR EST CARE-NEEDS PPW, PREV PATIENT IN OROCOVIS Reason for Visit CHF (congestive hear t failure) Dupuytren's contracture of both hands Heart disease Hypertension Additional Source Comments Goals (unrecognized section and content) Goals may be documented in a n alternate sectionGoals may be documented in an alternate sectionGoals may be documented in an alternate section (unrecognized sect ion and content) No Status Records FoundNo Status Records FoundNo Status Records Found INFORMATION SOURCE (unrecogn ized section and content) DATE CREATED AUTHOR 11/15/2021 [employer] DATE CREATED AUTHOR AUTHOR'S ORGANIZ ATION 02/02/2024 [facility] DATE CREATED AUTHOR AUTHOR'S ORGANIZ ATION 06/08/2024 [facility] [email or web address] [facility] Scheduled Active and Recently Administ ered Medications (unrecognized section and content) Medication Order 11/07/2021 11/08/2021 11/09/2021 sodium chloride flush 0.9 % injection 5-40 mL 5-40 mL, IntraVENous, EVERY 12 HOURS SCHEDULED (2 times per day), First dose on Tue11/09/21 at 0900, Until Discontinued, For Line Patency: Peripheral IV = 5 mL; Midline or Central Line = 10 mL/lumen. If following IV push medication, administer flush at same rate as the IV push. Flush volume is determined by type of infusion therapy being given. For non-viscous solutions use: Peripheral IV = 5 mL Midline or Central Line = 10 mL/lumen For viscous solutions (i.e. blood components, parenteral nutrition, contrast media, or after obtaining blood sample) use: Peripheral IV = 10 mL Midline or Central Line = 20 mL/lumen, Pre-Procedure(Cath) 0900 (Due)2100 (Due) vancomycin 1000 MG IVPB in 250 mL D5W add-vantage (COMPLETED) 1,000 mg, IntraVENous, at 250 mL/hr, Administer over 60 Minutes, ONCE, On Tue11/09/21 at 0745, For 1 dose, Please send to EP lab with patient, Pre-Procedure(Cath) 0900 (Given by Other Clinician - Provider: Anai Moulton RN - Comment: Given by Gilberto Singh RN) PRN Medication Order 11/07/2021 11/08/2021 11/09/2021 0.9 % sodium chloride infusion IntraVENous, at 5-250 mL/hr, PRN, if patient receiving piggyback infusions and maintenance fluids are not ordered OR KVO fluids to protect IV site / prevent frequent line interruptions/ long duration, Starting on Tue11/09/21 at 0718, For piggyback infusion, administer at same rate as piggyback for a total of 25 mL. Enter 25 mL into dose field and piggyback rate into rate field of order. If piggyback is infusing at a rate less than 100 mL/hr, enter 25 mL into dose field and 100 mL/hr into rate field of order. For KVO fluids, enter rate of 20 mL/hr or less into rate field of order., Pre-Procedure(Cath) sodium chloride flush 0.9 % injection 5-40 mL 5-40 mL, IntraVENous, PRN, Starting on Tue11/09/21 at 0718, Until Discontinued, Line Care, After every IV line use, For Line Patency: Peripheral IV = 5 mL; Midline or Central Line = 10 mL/lumen. If following IV push medication, administer flush at same rate as the IV push. Flush volume is determined by type of infusion therapy being given. For non-viscous solutions use: Peripheral IV = 5 mL Midline or Central Line = 10 mL/lumen For viscous solutions (i.e. blood components, parenteral nutrition, contrast media, or after obtaining blood sample) use: Peripheral IV = 10 mL Midline or Central Line = 20 mL/lumen, Pre-Procedure(Cath) Care Teams (unrecognized sec tion and content) Vp Scientific Affairs Relationship Specialty Start Date End Date Devon Beltran [address] [place] [address] PCP - General 01/22/21 Vp Scientific Affairs Relationship Specialty Start Date End Date Devon Beltran [address] [place], [place] [address] PCP - General 01/22/21 Team Status: Active Member Role Status Dates Dr. Devon Beltran , DO Family Provider Active Dr. Devon Beltran , DO Primary Care Provider Active Team Status: Inactive Member Role Status Dates Dr. Devon Beltran , DO Primary Care Provider Active THERESA LEMOS Attending Provider, Referring Provi carlos Active Team Status: Inactive Member Role Status Dates Dr. Devon Beltran , DO Primary Care Pr ovider, Attending Provider, Referring Provider Active Team Status: Inactive Member Role Status Dates Dr. Devon Beltran , DO Primary Care Provider, Attend ing Provider Active Vp Scientific Affairs Relationship Specialty Start Date End Date Devon Beltran [address] [place] [address] PCP - General 01/22/21 Vp Scientific Affairs Relationship Specialty Start Date End Date Devon Beltran [address] [place] [address] PCP - General 01/22/21 Vp Scientific Affairs Relationship Specialty Start Date End Date Devon Beltran [address] [place] [address] PCP - General 01/22/21 Vp Scientific Affairs Relationship Specialty Start Date End Date Devon Beltran [address] [place] [address] PCP - General 01/22/21 Vp Scientific Affairs Relationship Specialty Start Date End Date Devon Beltran [address] [place] [address] PCP - General 01/22/21 Vp Scientific Affairs Relationship Specialty Start Date End Date Devon Beltran Collin [address] [place] [address] PCP - General 01/22/21 Vp Scientific Affairs Relationship Specialty Start Date End Date Devon Beltran [address] [place] [address] PCP - General 01/22/21 Reason for Visit (unrecogniz ed section and content) Reason Onset Date Comments Med Refill 08/03/2022 Reason Onset Date Comments Med Refill 02/11/2023 Carvedilol/simva statin/losartan/spironolactone Reason Onset Date Comments Orders 05/30/2023 Reason Comments Follow-up Reason Onset Date Comments Other 01/19/2024 Reason Onset Date Comments Med Refill 02/23/2024 Reason Comments Med Refill Reason Comments Annual Exam Reason Onset Date Comments Med Refill 06/08/2024 FOR RECORDS PERTAINING TO PATIENTS WHO ARE OR HAVE BEEN ENROLLED IN A CHEMICAL DEPENDENCY/SUBSTANCEABUSE PROGRAM, SOME INFORMATION MAY BE OMITTED. This clinical summary was aggregated from multiple sources. Caution should be exercised in using it in the provision of clinical care. This summary normalizes information from multiple sources, and as a consequence, information in this document may materially change the coding, format and clinical context of patient data. In addition, data may be omitted in some cases. CLINICAL DECISIONS SHOULD BE BASED ON THE PRIMARY CLINICAL RECORDS. [facility] [employer] [facility]. provides no warranty or guarantee of the accuracy or completeness of information in this document.
--- NOTE | 2024-07-29 12:38 | ED.VIS.STROK ---
HPI History of Present Illness Chief Complaint: Stroke Alert Narrative Narrative: 88-year-old male presents with left arm numbness and left hand numbness that he has had intermittently since Tuesday, approximately 5 days ago. He states that intermittently, he had hand numbness for about 5 to 10 minutes. It went away and resolved on its own. However, it has been returning. The following day on Tuesday it may be last 20 minutes. This morning, he states he awoke around 4 AM and was experiencing numbness. He went back to bed and took a nap, and was feeling improved until about 20 minutes ago when he states that he experienced the numbness again, but seems to be lasting a little bit longer. He is having problems with holding things in his left hand as well. He states that he is dropping things more starting today. Denies headache or other symptoms. However, his had thought that maybe his speech was slightly slurred. [facility] Medical History Loss of hearing Wears glasses Wears dentures Alcohol use High cholesterol Easy bruising Dietary restriction Non-smoker Hypertension History of stress test Cardiology follow-up encounter History of CHF (congestive heart failure) History of heart attack TIA (transient ischemic attack) Hx of fracture of hip Cardiac defibrillator in place Home Medications ?Medication ?Instructions ?Recorded ?Last Taken ?Type aspirin 81 mg chewable tablet 81 mg PO DAILY 09/11/15 07/29/24 History nitroglycerin 0.4 mg sublingual 0.4 mg sublingual Q5M PRN Chest 09/11/15 Unknown History tablet Pain simvastatin 40 mg tablet 40 mg PO QHS 09/11/15 07/28/24 History spironolactone 25 mg tablet 12.5 mg PO DAILY 09/11/15 07/29/24 History losartan 50 mg tablet 50 mg PO DAILY 08/25/22 07/29/24 History carvedilol 6.25 mg tablet 6.25 mg PO BID 01/19/24 07/29/24 History finasteride 5 mg tablet 5 mg PO DAILY 01/19/24 07/29/24 History tamsulosin 0.4 mg capsule (Flomax) 0.4 mg PO DAILY 01/19/24 07/29/24 History Allergy/AdvReac Type Severity Reaction Status Date / Time No Known Allergies Allergy Verified 07/29/24 12:33 Family History Mother CAD (coronary artery disease) Grandfather CAD (coronary artery disease) Brother Prostate cancer Sister Colon cancer Sister Throat cancer Surgical History History of coronary artery stent placement History of cystoscopy Hx of right cataract extraction Hx of left cataract extraction Social History adopted: No household members: spouse housing: house number of children: 1 current occupational status: retired pets and animals: No Smoking Status: Never smoker second hand exposure: No alcohol intake: current alcohol intake frequency: holidays/special occasions only substance use type: does not use caffeine: Yes (1-2) Type: coffee what type of physical activity do you participate in: walking frequency: daily seatbelt use: always do you feel safe at home: Yes ROS ROS ED ROS Narrative Review of systems positive for left hand numbness and weakness. Possible slurred speech. Denies headache, neck pain, or any other exacerbating or alleviating symptoms. EXAM Physical Exam Narrative Exam Narrative: Afebrile. Vital signs noted. Nontoxic-appearing. Cardiovascular examination reveals a regular rate and rhythm. Lungs clear to auscultation bilaterally. Abdomen soft, nontender, with normoactive bowel sounds. No guarding or rebound. Neurological examination does show ataxia of the left upper limb. There may be slight dysarthria as well, but the patient is hard of hearing. No expressive aphasia. Const Vital Signs: 07/29/24 12:28 07/29/24 12:35 07/29/24 12:42 Temperature 97.9 F Temperature Source Oral Pulse Rate 79 82 Respiratory Rate 18 20 H Blood Pressure 134/74 H 141/78 H Blood Pressure Mean 94 99 Pulse Ox 97 97 Oxygen Delivery Method Room Air Room Air Room Air 07/29/24 12:53 07/29/24 13:05 07/29/24 13:29 Temperature Temperature Source Pulse Rate 74 76 78 Respiratory Rate 20 H 22 H Blood Pressure 141/78 H 127/67 H 114/90 H Blood Pressure Mean 99 87 98 Pulse Ox 96 96 97 Oxygen Delivery Method Room Air Room Air Room Air 07/29/24 13:59 07/29/24 14:05 Temperature 97.9 F Temperature Source Pulse Rate 70 70 Respiratory Rate 19 H 19 H Blood Pressure 124/64 H 124/64 H Blood Pressure Mean 84 84 Pulse Ox 95 95 Oxygen Delivery Method Room Air MDM MDM MDM Narrative Medical decision making narrative: Differential diagnosis includes but not limited to TIA versus stroke versus hemorrhage versus mass. Stroke team was initiated. On review of the CT without contrast, there is what appears to be a right intraparenchymal hemorrhage. I received a call from the radiologist that confirms this that there is an intraparenchymal hemorrhage in the right posterior gyrus. I reviewed the radiology report of the CTA of the head and neck and there is no large vessel occlusion. As there is a contraindication to TNK, with him having an intraparenchymal hemorrhage, none was given. In discussion with the patient and his , he is not on blood thinners, and although he has history of TIA, he was taken off clopidogrel years ago and only takes a baby aspirin. They requested transfer to [facility] as his landscaping manager/EP physician Zhou Prince is there. EKG was obtained as part of the workup and interpreted by myself independently as normal sinus rhythm at 78 bpm with occasional PVCs but no acute ST changes. No STEMI. I reviewed his laboratory work and he has slight elevation of his white count at 11.2 which I think is nonspecific, hemoglobin 13.8 and hematocrit 41.7, platelet count normal at 232. PT normal at 14.5 and INR 1.1 with a PTT 24.3. BUN of 13 and creatinine normal at 1.04. Glucose appropriately elevated at 108 with a normal anion gap of 12. Initial high-sensitivity troponin is 17. In discussion with Dr. Squires with neurology at [facility], he recommended discussion with the MICU physician for admission given the intraparenchymal hemorrhage. Of note, I also discussed patient with the [facility] telestroke neurologist who read the CT as a subarachnoid hemorrhage, and thought that the patient may be having irritation from blood causing the neurological symptoms so he suggested Keppra 2 g loading dose. As the patient requested transfer to [facility], I discussed patient with Dr. Cal Keys with medical ICU who accepts the patient in transfer. It was not felt that he needed emergent [facility] as his symptoms have been ongoing since Tuesday, and currently he is stable with a blood pressure of 124/64. Disposition is transferred in stable condition. Critical care time 32 minutes. History & Record Review Discussion w/independent historian: Patient and Family Lab Data Attestation: I reviewed the patient's lab results. Labs: Laboratory Results - last 24 hr 07/29/24 12:32 WBC 11.2 H RBC 4.74 Hgb 13.8 Hct 41.7 MCV 88.0 MCH 29.1 MCHC 33.1 RDW Std Deviation 42.6 RDW Coeff of Tashia 13.2 Plt Count 232 MPV 11.0 Immature Gran % (Auto) 0.500 Neut % (Auto) 49.3 Lymph % (Auto) 42.4 H Catron % (Auto) 6.0 Eos % (Auto) 1.4 Baso % (Auto) 0.4 Absolute Neuts (auto) 5.5 Absolute Lymphs (auto) 4.75 H Nucleated RBC % 0 PT 14.5 INR 1.1 APTT 24.3 Sodium 138 Potassium 4.3 Chloride 106 Carbon Dioxide 19.8 L Anion Gap 12 BUN 13 Creatinine 1.04 Estim Creat Clear Calc 44.31 L Est GFR (MDRD) Non-Af 69 BUN/Creatinine Ratio 12.8 Glucose 108 H Calcium 9.3 Troponin T High Sens 17 Radiography Diagnostic Testing: Clinical Impression(s) from Imaging Studies Brain CT 07/29/24 12:35 IMPRESSION: 1. Intraparenchymal hemorrhage within the right postcentral gyrus. 2. Findings of chronic microvascular ischemic changes and age-related changes. Dr. Lozano discussed these findings via telephone with Dr. Nugent at 12:49 p.m. on 07/29/2024. Reading Location: [id number] Head/Neck CTA 07/29/24 12:35 IMPRESSION: No large vessel occlusion identified. No aneurysm or AVM identified. Hemorrhagic infarct right parietal lobe [facility] Management Discussion w/another healthcare provider: Rubber Press Operator (Neurology from [facility], neurology at [facility], medical ICU at [facility].) and Radiologist Critical Care Time Critical Care Time: Yes Critical care time (excluding procedures): 30-74 minutes (32), Including time spent:, Discussing w/Patient &/or Family/Servicer Coin Machines, Discussing w/Consultants, Arranging Admission or Transfer and Performing Direct Patient Care at Bedside Discharge Plan Triage Chief Complaint: Stroke Alert ED Provider: Albin Nugent Dx/Rx/DC Orders Clinical Impression: Intraparenchymal hemorrhage of brain, Numbness of left hand, Ataxia Prescriptions: No Action losartan 50 mg tablet 50 mg PO DAILY spironolactone 25 MG tablet 12.5 mg PO DAILY simvastatin 40 MG tablet 40 mg PO QHS nitroglycerin 0.4 MG tablet 0.4 mg sublingual Q5M PRN (Reason: Chest Pain) aspirin 81 MG tablet,chewable 81 mg PO DAILY finasteride 5 mg tablet 5 mg PO DAILY carvedilol 6.25 mg tablet 6.25 mg PO BID tamsulosin [Flomax] 0.4 mg capsule 0.4 mg PO DAILY Primary Care Provider: Abdifatah Beltran Referrals: Abdifatah Beltran, [Primary Care Provider] - Print Language: Turkish Disposition Disposition: Acute Care Hospital Discharge Location: [facility] NIH NIHSS 1a. Level of Consciousness: 0 - Alert; keenly responsive 1b. LOC Questions: 0 - Answers BOTH questions correctly 1c. LOC Commands: 0 - Performs BOTH tasks correctly 2. Best Gaze: 0 - Normal 3. Visual: 0 - No visual loss 4. Facial Palsy: 0 - Normal symmetrical movements 5a. Left Arm: 0 - No drift; arm holds 90 (or 45) degrees for full 10 seconds 5b. Right Arm: 0 - No drift; arm holds 90 (or 45) degrees for full 10 seconds 6a. Left Le - No drift; leg holds 30-degree position for full 5 seconds 6b. Right Le - No drift; leg holds 30-degree position for full 5 seconds 7. Limb Ataxia: 1 - Present in 1 limb 8. Sensory: 0 - Normal; no sensory loss 9. Best Language: 0 - No aphasia; normal 10. Dysarthria: 1 = [id number] dysarthria; 11. Extinction and Inattention: 0 - No abnormality Total: 2 Stroke Questions Stroke Team Activated: Yes Reviewed Inclusion/Exclusion criteria: Yes Was Patient considered for Endovascular Intervention?: No IV Thrombolytic Administered: No No contraindications from thrombolytic administration: No (Intraparenchymal bleed)
[2024-07-29 12:46] LABS: Absolute Lymphocyte Count 4.75 X10^3/uL (0.83-4.51); Absolute Neutrophil Count 5.5 X10^3/uL (2.0-7.7); Basophil# 0.04 X10^3/uL; Basophil% 0.4 % (0-1); Eosinophil# 0.16 X10^3/uL; Eosinophils% 1.4 % (0-5); Hematocrit 41.7 % (40-54); Hemoglobin 13.8 g/dL (13.0-16.5); Lymphocyte # 4.75 X10^3/ul (0.83-4.51); Lymphocyte % 42.4 % (19-41); Mean Corp Hgb Conc 33.1 g/dL (32-36); Mean Corpuscular Hgb 29.1 pg (27.0-32.0); Monocyte# 0.67 X10^3/uL; NRBC Flagged by Analyzer 0 % (0-5); Neutrophil # 5.52 X10^3/uL (2.7-7.7); Neutrophil % 49.3 % (47-70); Platelet Count 232 K/mm3 (150-450); RBC Distribution Width CV 13.2 % (11.6-14.6); RBC Distribution Width SD 42.6 fl (35.1-43.9); Red Blood Count 4.74 M/mm3 (4.6-6.2); White Blood Count 11.2 K/mm3 (4.4-11.0)
[2024-07-29 12:57] LABS: International Normalized Ratio 1.1; Prothrombin Time (Protime)PT. 14.5 SECONDS (11.7-14.9)
[2024-07-29 13:09] LABS: Anion Gap 12 (5-15); BUN 13 mg/dL (4-19); BUN/Creat Ratio 12.8 RATIO (10-20); Calcium,Total 9.3 mg/dL (7.6-11.0); Carbon Dioxide 19.8 mmol/L (21.0-32.0); Chloride 106 mmol/L (98-108); Creatinine, Serum 1.04 mg/dL (0.70-1.20); EST Glomerular Filtration Rate 69 (>60); Estimated Creatinine Clearance 44.31 ml/min (50-250); Glucose 108 mg/dL (70-99); Potassium 4.3 mmol/L (3.3-5.1); Sodium Level 138 mmol/L (133-145); Troponin T High Sensitivity 17 ng/L (<=22)
[2024-07-29 13:16] LABS: Partial Thromboplast Time 24.3 Seconds (24.1-36.2)
--- NOTE | 2024-07-29 13:45 | CM.ED ---
Date of referral: 07/29/2024 Reason for Referral: Stroke Alert Front End Developer Designer responded to a stroke alert and provide support to patient's , Lily and patient's granddaughter. (end time: 12:36). Front End Developer Designer met with patient, patient's and granddaughter again to check on everyone to see how they are doing and to see if anyone needed anything. Patient is hard of hearing ([place] Patient's stated they are transferring patient to [facility] because that's where patient's heart doctor is. Patient and patient's family denied the need for any additional support at this time. (end: 13:43) Lacey Aguilar, CONCESSION ATTENDANT, ADDRESSING MACHINE OPERATOR
[2024-07-29] MEDS: levETIRAcetam IV 2,000 MG in 0.9% Normal Saline (250mL Bag) 230 ML 1000 MG IV (13:50)
--- NOTE | 2024-07-29 14:42 | ED.RN ---
Report called to Albin at [facility]
[2024-07-29 14:49] LABS: Troponin T High Sens 2 HR 19 ng/L (<=22)
--- NOTE | 2024-07-29 14:53 | ED.RN ---
[facility]
[2024-07-29 16:53] LABS: Bedside Glucose 91 mg/dL (74-106)
== END 2024-07-29 14:56 | disposition short-term general hospital (02) ==
PROVIDERS: Emergency Provider Emergency Medicine; PCP Family Medicine; Visit Provider Emergency Medicine
DX: I61.8 Other nontraumatic intracerebral hemorrhage (principal); G83.14 Monoplegia of lower limb affecting left nondominant side; I25.2 Old myocardial infarction; I10 Essential (primary) hypertension; R29.702 NIHSS score 2; R20.0 Anesthesia of skin; R27.0 Ataxia, unspecified; Z95.5 Presence of coronary angioplasty implant and graft; Z79.82 Long term (current) use of aspirin; Z79.899 Other long term (current) drug therapy; Z86.73 Personal history of transient ischemic attack (TIA), and cerebral infarction without residual deficits
CPT/HCPCS: 70450; 70496; 70498; 80048; 82962; 84484; 85025; 85610; 85730; 93005; 96365; 99285; Q9967

== ENCOUNTER 2024-08-20 08:37 | Outpatient (RCR) | payer MEDICARE, SELFPAY ==
--- NOTE | 2024-08-20 09:49 | HP.PTEVAL ---
Patient's Visit Information Visit Information Visit Information: EFRAÍN MEREDITH is a 88 year old M referred to Physical Therapy by SAMIA Go with a diagnosis of L UE weakness. Date of Evaluation: 08/20/24 Physical Therapist: Hitesh Dee, PT, ATC Visit Plan Plan: Skilled therapy is not necessary at this time. Subjective Subjective: Pt reports he had a brain bleed 3 weeks ago. Pt notes the bleed was on the R side of his brain, which has resulted in R UE weakness. Pt notes he has recovered some at this time as his and him have been tossing a ball at home to work on his strength and muscle control. Pt is unable to perform fine motor tasks such as putting butter on a piece of toast. Pt notes he continues to have some tingling in his L UE, especially at the tips of his fingers. Pt reports no sleep difficulty at this time. Pt is able to perform most of his IADL's, but is unable to mow his lawn or drive at this time secondary to L UE weakness. Pt notes he has been dropping a lot of thigs with his L UE secondary to his weakness. Pt is not in any pain at this time. 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 Objective Objective: Neuro: B UE sensation is WNL to light touch. B bicipital reflex= 3/3 ROM: R shoulder flex= 150, abd= 130, ER= 40, IR= WNL; L shoulder flex= 140, abd= 130, ER= 40, IR= WNL MMT: R shoulder flex= 15, abd= 18, ER= 15, IR= 17 #F; L shoulder flex= 15, abd= 18, ER= 15, IR= 15 #F primer expeditor and drier strength: R= 80 #F, L= 65 #F Goals Goal 1:: NA Rehabilitation Potential Physical Therapy Diagnosis: Pt had L UE weakness secondary to hemorrhagic brain bleed Rehabilitation Potential: Excellent Anticipated Interventions Patient/Client Instruction: Educate patient on: Condition and Plan of Care For the Purpose of:: To improve self management Text: Thank you for the opportunity to evaluate your patient. For Medicare and Medicare HMO plans, please review the plan of care and approve it. It will need to be FAXED BACK to us at [phone] for Medicare purposes. For Medicare only, by signing this I certify the plan of care. Please let me know if there are questions or concerns regarding this plan of care. Physician Signature: Date:
--- NOTE | 2024-08-20 09:50 | HP.PT.NRP ---
Patient Information Patient Information: EFRAÍN MEREDITH was seen in my office for initial evaluation on 08/20/24. The following Plan of Care was established for this patient: Anticipated Interventions Patient/Client Instruction: Educate patient on: Condition and Plan of Care For the Purpose of:: To improve self management Last Seen Last Seen: This patient was last seen in our office . Pertinent comments regarding their Physical therapy will appear below: Skilled PT is not necessary at this time. At this point I will be discontinuing this patient from physical therapy. I would be happy to see this patient again in the future if found appropriate by the physician. Thank you! Hitesh Dee, PT, ATC
== END 2024-08-20 10:33 | disposition home or self-care (01) ==
LOC: PT 08:37
PROVIDERS: PCP Family Medicine; Referring Provider Nurse Practitioner Family; Visit Provider Nurse Practitioner Family
DX: R29.898 Other symptoms and signs involving the musculoskeletal system (principal)
CPT/HCPCS: 97161

== ENCOUNTER → 2024-09-04 | Outpatient (CLI) | payer MEDICARE, SELFPAY ==
[2024-09-04 12:43] LABS: Hematocrit 44.0 % (40-54); Hemoglobin 14.1 g/dL (13.0-16.5); Mean Corp Hgb Conc 32.0 g/dL (32-36); Mean Corpuscular Volume 89.6 fL (80-94); Mean Platelet Vol. 11.9 fl (6.2-12.0); Platelet Count 201 K/mm3 (150-450); RBC Distribution Width CV 13.4 % (11.6-14.6); RBC Distribution Width SD 44.1 fl (35.1-43.9); Red Blood Count 4.91 M/mm3 (4.6-6.2); White Blood Count 13.0 K/mm3 (4.4-11.0)
[2024-09-04 13:20] LABS: AST(SGOT) 21 U/L (<=37); Alanine Aminotransfer ALT/SGPT 23 U/L (<=46); Albumin, Serum 4.3 g/dL (3.4-4.8); Alkaline Phosphatase 86 U/L (40-129); Anion Gap 11 (5-15); BUN 14 mg/dL (4-19); BUN/Creat Ratio 14.4 RATIO (10-20); Calcium,Total 9.7 mg/dL (7.6-11.0); Carbon Dioxide 22.6 mmol/L (21.0-32.0); Chloride 107 mmol/L (98-108); Globulin 2.7 g/dL (2.2-4.2); Glucose 108 mg/dL (70-99); Potassium 4.4 mmol/L (3.3-5.1); Pro- Brain NATRIURETIC PEPTIDE 1927 pg/mL (<=1800)
== END | disposition home or self-care (01) ==
LOC: BIMLAB 08:21
PROVIDERS: PCP Family Medicine; Referring Provider Nurse Practitioner Family; Visit Provider Nurse Practitioner Family
DX: I11.0 Hypertensive heart disease with heart failure (principal); I50.9 Heart failure, unspecified
CPT/HCPCS: 36415; 80053; 83880; 85027

== ENCOUNTER → 2024-10-23 | Outpatient (CLI) | payer MEDICARE, SELFPAY ==
[2024-10-23 13:39] LABS: AST(SGOT) 22 U/L (<=37); Alanine Aminotransfer ALT/SGPT 24 U/L (<=46); Albumin, Serum 4.3 g/dL (3.4-4.8); Alkaline Phosphatase 88 U/L (40-129); Anion Gap 10 (5-15); BUN 14 mg/dL (4-19); BUN/Creat Ratio 13.3 RATIO (10-20); Calcium,Total 9.1 mg/dL (7.6-11.0); Carbon Dioxide 24.3 mmol/L (21.0-32.0); Chloride 105 mmol/L (98-108); Globulin 2.6 g/dL (2.2-4.2); Glucose 106 mg/dL (70-99); Potassium 4.1 mmol/L (3.3-5.1)
[2024-10-23 14:07] LABS: PTHIN 45 pg/mL (11-61)
--- OUTSIDE RECORDS SUMMARY | 2024-10-23 20:18 | XMS RPT_ITS | CCD ---
Author Organization [facility] CliniSyme Care Team Providers Care Bottle Line Worker Name Role Phone Zhou Calle Attending Unavailable PROVIDER, UNKNOWN Referring Unavailable Brown, Devon Primary Care Unavailable Devon Stokes R Primary Care Provider [phone] Devon Stokes Primary Care Provider [phone] Dr. Devon Stokes Primary Care Provider [phone] Dr. Devon Stokes Attending Provider [phone] Dr. Devon Stokes Referring Provider [phone] Dr. Devon Stokes DO Primary Care Provider [phone] Albin Nugent MD Emergency Provider Albin Nugent MD Attending Provider Dr. Devon Stokes DO Referring Provider [phone] Fer FERTILIZING MACHINE OPERATOR-CJennifer Attending Provider [phone] Dr. Devon Stokes DO Attending Provider [phone] Ungerer FERTILIZING MACHINE OPERATOR-C, Jennifer Referring Provider [phone] Devon Stokes Attending Unavailable Brown, Devon R Referring Unavailable Brown, Devon R Primary Care Unavailable HinsdaleDaisy Attending Unavailable HinsdaleDaisy Referring Unavailable Brown, Devon R Primary Care Unavailable Mary KayMark Attending Unavailable Mary KayMark Referring Unavailable Brown, Devon R Primary Care Unavailable Mary KayMark Attending Unavailable Brown, Devon R Primary Care Unavailable Mary KayMark Referring Unavailable Brown, Devon R Primary Care Unavailable Ye Rogers Attending Unavailable Ungerer, Jennifer Attending Unavailable UngererJennifer Referring Unavailable Brown, Devon R Primary Care Unavailable UngererJennifer Attending Unavailable Brown, Devon R Referring Unavailable Brown, Devon R Primary Care Unavailable Brown, Devon R Attending Unavailable Brown, Devon R Referring Unavailable Brown, Devon R Primary Care Unavailable Jennifer Casas Attending Unavailable Brown, Devon R Referring Unavailable Brown, Devon R Primary Care Unavailable Brown, Devon R Attending Unavailable Brown, Devon R Primary Care Unavailable Brown, Devon R Primary Care Unavailable Albin Nugent Attending Unavailable Jennifer Casas Attending Unavailable Jennifer Casas Referring Unavailable Brown, Devon R Primary Care Unavailable HEATHER MORTON Admitting Unavailable NONE, PCP Referring Unavailable BROWN, DEVON Primary Care Unavailable DEMETRI QUINONEZ Consulting Unavailable DONNIE MONROE Attending UnavailYULIANA Hope Consulting Unavailable AGAPITO, JUAN Consulting Unavailable CONNIE QIU Attending Unavailable BROWN, DEVON Primary Care Unavailable CHANTEL HUNTLEY Attending Unavailable BROWN, DEVON Primary Care Unavailable ZHOU CALLE Attending Unavailable BROWN, DEVON Primary Care Unavailable JOSEPHINE DARDEN Attending Unavailab le JOSEPHINE DARDEN Referring Unavailab le BROWN, DEVON Primary Care Unavailable JOSEPHINE DARDEN Attending Unavailab le AGAPITO, JUAN Referring Unavailable BROWN, DEVON Primary Care Unavailable AGAPITO, JUAN Attending Unavailable BROWN, DEVON Primary Care Unavailable BROWN, DEVON Primary Care Unavailable BROWN, DEVON Primary Care Unavailable VANESSA HOFFMAN Attending Unavailable ZHOU DELONG Referring Unavailable BROWN, DEVON Primary Care Unavailable RADU ARRINGTON Referring Unavailable BROWN, DEVON Primary Care Unavailable BROWN, DEVON Primary Care Unavailable BROWN, DEVON Primary Care Unavailable BROWN, DEVON Primary Care Unavailable BROWN, DEVON Primary Care Unavailable Medications Current Medications Medication Drug Class(es) Dates Sig (Normalized) Sig (Original) aspirin 81 mg chewable tablet (20 sources) Platelet Aggregation Inhibitor, Nonsteroidal Anti-inflammatory Drug Start: 09-11-2015 take 1 tablet by mouth once daily Aspirin 81 MG tablet,chewable Active 81 mg PO DAILY September 11, 2015 12:00am take 1 tablet by mouth once tariq y aspirin 81 MG EC tablet Take 81 mg by mouth daily. Active take 1 tablet by mouth once tariq y aspirin 81 MG tablet Take 81 mg by mouth daily 0 Active atorvastatin 20 mg oral tablet (20 sources) HMG-CoA Reductase Inhibitor Start: 07-29-2024 End: 08-01-2025 take 1 tablet by mouth once daily atorvastatin (Lipitor) 20 MG tablet Take 1 tablet (20 mg) by mouth Nightly. 30 tablet 11 08/01/2024 5:29 PM EDT 08/01/2024 08/01/2025 Active carvedilol 6.25 mg oral tablet (20 sources) alpha-Adrenergic Joanie, beta-Adrenergic Joanie Start: 09-11-2015 End: 09-24-2024 take 1 tablet by mouth twice daily Carvedilol 6.25 mg tablet Active 6.25 mg PO TWICE A DAY January 19, 2024 1:00am finasteride 5 mg oral tablet (20 sources) 5-alpha Reductase Inhibitor Start: 01-19-2024 take 1 tablet by mouth once daily Finasteride 5 mg tablet Active 5 mg PO DAILY January 19, 2024 1:00am furosemide 20 mg oral tablet (7 sources) Loop Diuretic Start: 09-24-2024 End: 09-24-2025 take 1 tablet by mouth once daily as needed Furosemide 20 mg tablet Active 20 mg PO daily as needed October 23, 2024 12:00am Cardiology Start: 09-04-2024 End: 09-11-2024 take 1 tablet by mouth once daily Furosemide (Lasix) 20 mg tablet Discontinued 20 mg PO daily 7 7 0 September 04, 2024 12:00am September 10, 2024 12:00am September 11, 2024 12:07am Congestive heart failure Heart failure, unspecified levETIRAcetam 500 mg oral tablet (20 sources) Start: 08-01-2024 End: 08-01-2025 Levetiracetam 500 mg tablet Active 0 PO TWICE A DAY October 23, 2024 12:00am take 500mg bid and 250+500+750mg qhs orally twice a day; neurology losartan potassium 50 mg oral tablet (20 sources) Angiotensin 2 Receptor Joanie Start: 08-25-2022 Losartan Active MG P O August 25, 2022 12:00am Start: 02-01-2022 End: 10-03-2024 take 1 tablet by mouth once daily Losartan 50 mg tablet Active 50 mg PO DAILY August 25, 2022 12:00am Start: 08-03-2021 take 1 tablet by margarita th once daily losartan (COZAAR) 50 MG tablet Indications: Essential hypertension Take 1 tablet by mouth once daily 90 tablet 1 08/03/2021 Active nitroglycerin 0.4 mg sublingual tablet (20 sources) Nitrate Vasodilator Start: 09-11-2015 Nitroglycerin 0.4 MG tablet Active 0.4 mg SL Q5M as needed for Chest Pain September 11, 2015 12:00am simvastatin 40 mg oral tablet (20 sources) HMG-CoA Reductase Inhibitor Start: 09-11-2015 End: 08-01-2024 take 1 tablet by mouth at bedtime Simvastatin 40 MG tablet Active 40 mg PO AT BEDTIME September 11, 2015 12:00am spironolactone 25 mg oral tablet (20 sources) Aldosterone Antagonist Start: 02-01-2022 End: 08-01-2024 take 0.5 tablet by mouth once daily spironolactone (Aldactone) 25 MG tablet Indications: LV dysfunction Take 0.5 tablets (12.5 mg) by mouth daily. 45 tablet 1 06/08/2024 Active Start: 08-03-2021 take 0.5 tablet by m outh once daily spironolactone (ALDACTONE) 25 MG tablet Indications: CAD in [place] artery Take 1/2 (one-half) tablet by mouth once daily 45 tablet 1 08/03/2021 Active Start: 09-11-2015 End: 10-03-2024 Spironolactone 25 MG tablet Active 12.5 mg PO DAILY September 11, 2015 12:00am Start: 09-11-2015 take 12.5 mg by mout h once daily Spironolactone Active 12.5 MG PO DAILY September 11, 2015 12:00am tamsulosin hydrochloride 0.4 mg oral capsule (20 sources) alpha-Adrenergic Joanie Start: 03-20-2024 take 1 capsule by mouth twice daily tamsulosin (Flomax) 0.4 MG 24 hr capsule Take 0.4 mg by mouth 2 times daily. 03/20/2024 Active Start: 11-28-2023 End: 01-19-2024 take 1 capsule by mouth once daily tamsulosin (Flomax) 0.4 MG 24 hr capsule Take 0.4 mg by mouth daily. 03/20/2024 Active Completed/Discontinued Medications Medication Drug Class(es) Dates Sig (Normalized) Sig (Original) acetaminophen 500 mg oral tablet (2 sources) Start: 07-30-19 End: 08-02-19 take 1 tablet by mouth every six hours as needed for pain and headache and fever 1,000 mg, Oral, Every 6 hours PRN, mild pain (1-3), headaches, fever, Starting on Tue07/29/24 at 1741, Maximum dose of acetaminophen is 4000 mg from all sources in 24 hours. bisacodyl 10 mg rectal suppository (2 sources) Stimulant Laxative Start: 07-30-19 End: 08-02-19 take 10 mg rectal route every twenty-four hours as needed for constipation 10 mg, Rectal, Daily PRN, constipation, Starting on Tue07/29/24 at 1654, 2nd line for treatment of constipation - give scheduled (in addition to 1st line agent) if no bowel movement in past 48 hours cephalexin 500 mg oral capsule (6 sources) Cephalosporin Antibacterial Start: 02-01-20 End: 07-30-19 take 1 capsule by mouth three times daily Cephalexin 500 mg capsule Discontinued 500 mg PO THREE TIMES A DAY 14 0 February 01, 2024 1:00am July 29, 2024 1:39pm 2 ml fentaNYL 0.05 mg/ml injection (2 sources) Opioid Agonist Start: 08-02-19 End: 08-02-19 IntraVENous, As needed, Starting on Tue08/01/24 at 0957, Intraprocedure gadopiclenol (Vueway) injection 7 mL (2 sources) Start: 07-31-19 End: 07-31-19 take 7 mL intravenously once as needed 7 mL, IntraVENous, IMG once PRN, contrast, Starting on Tue07/30/24 at 1522, For 1 dose hydroCHLOROthiazide 12.5 mg oral capsule (15 sources) Thiazide Diuretic Start: 08-26-19 Hydrochlorothiazide Active MG PO August 25, 2022 12:00am Start: 02-01-2022 End: 07-05-2023 Hydrochlorothiazide 12.5 mg capsule Discontinued mg PO August 25, 2022 12:00am July 05, 2023 9:32am Start: 08-03-2021 take 1 capsule by [facility] once daily hydroCHLOROthiazide (MICROZIDE) 12.5 MG capsule Indications: Essential hypertension Take 1 capsule by mouth once daily 90 capsule 1 08/03/2021 Active hydroCHLOROthiazide 25 mg / valsartan 160 mg oral tablet (9 sources) Thiazide Diuretic, Angiotensin 2 Receptor Joanie Start: 09-11-2015 End: 08-25-2022 take 1 tablet by mouth once daily Valsartan-Hydrochlorothiazide (Diovan Hct 160-25 Mg Tablet) 1 TABLET tablet Discontinued 1 {tbl} PO DAILY September 11, 2015 12:00am August 25, 2022 9:27am hydrOXYzine hydrochloride 25 mg oral tablet (6 sources) Antihistamine Start: 07-05-2023 End: 01-19-2024 take 1 tablet by mouth at bedtime Hydroxyzine Hcl 25 mg tablet Discontinued 25 mg PO AT BEDTIME 10 0 July 05, 2023 12:00am January 19, 2024 12:26pm iopamidol (Isovue-300) 61 % injection 93 mL (2 sources) Start: 08-01-2024 End: 08-01-2024 93 mL, Intra-arTERial, IMG once PRN, contrast, Starting on Tue08/01/24 at 1046, For 1 dose iopamidol (Isovue-370) 76 % injection 75 mL (2 sources) Start: 07-29-2024 End: 07-29-2024 take 75 mL intraveno usly once as needed 75 mL, IntraVENous, IMG once PRN, contrast, Starting on Tue07/29/24 at 1704, For 1 dose 10 ml lidocaine hydrochloride 10 mg/ml injection (2 sources) Antiarrhythmic, Amide Local Anesthetic Start: 08-01-2024 End: 08-01-2024 As needed, Starting on Tue08/01/24 at 0958, Intraprocedure 2 ml midazolam 1 mg/ml injection (2 sources) Benzodiazepine Start: 08-01-2024 End: 08-01-2024 IntraVENous, As needed, Starting on Tue08/01/24 at 0958, Intraprocedure mupirocin 0.02 mg/mg topical ointment (2 sources) RNA Synthetase Inhibitor Antibacterial Start: 07-29-2024 End: 08-01-2024 1 Application, Nasal, 2 time s daily, First dose on Tue07/29/24 at 2100, For 5 days, Indications: MRSA Nasal Decolonization 200 ml niCARdipine hydrochloride 0.1 mg/ml injection (2 sources) Dihydropyridine Calcium Channel Joanie Start: 07-29-2024 End: 08-01-2024 2.5-15 mg/hr (25-150 mL/hr), IntraVENous, Continuous, Starting on 07/29/24 at 1715, Do not administer through small veins (e.g. those on the dorsum of the hand or wrist); change the infusion site every 12 hours if a peripheral vein is used. If Titrate Infusion? is No: Disregard instructions below. If Titrate infusion? is Yes: Titrate in increments of 2.5 mg/hr no more frequently than every 15 minutes to goal of therapy. premix bag, Titrate Infusion? Yes, Initial Infusion Rate: 5 mg/hr, Goal of Therapy is: SBP less than 140 mmHg, Contact Provider if: Patient is receiving the maximum dose and is not achieving the goal of therapy, If held outside of ordered parameters contact provider for further direction ondansetron ODT (Zofran-ODT) disintegrating tablet 4 mg (2 sources) Start: 07-29-2024 End: 08-01-2024 take 1 tablet by mouth every eight hours as needed for nausea and vomiting ondansetron ODT (Zofran-ODT) disintegrating tablet 4 mg oxyCODONE hydrochloride 5 mg oral tablet (6 sources) Opioid Agonist Start: 02-01-2024 End: 07-29-2024 take 1 tablet by mouth every six hours as needed for pain Oxycodone 5 mg tablet Discontinued 5 mg PO EVERY 6 HOURS as needed for pain 10 3 0 February 01, 2024 July 29, 2024 1:40pm Phimosis of penis Phimosis pantoprazole (2 sources) Proton Pump Inhibitor Start: 07-29-2024 End: 08-01-2024 pantoprazole (ProtoNix) EC tablet 40 mg perflutren protein A microsphere (Optison) 3 mL in sodium chloride (PF) 0.9 % 10 mL IV (2 sources) Start: 07-29-2024 End: 07-30-2024 0-10 mL, IntraVENous, IMG on ce PRN, other, Suboptimal echo image, Starting on [place] 07/29/24 at 1659, For 1 dose, CV Procedural Medications, Administer via slow IVP for suboptimal echocardiogram enhancement. May administer as divided doses to reach optimal image enhancement polyethylene glycol 3350 17762 mg powder for oral solution (2 sources) Osmotic Laxative Start: 07-29-2024 End: 08-01-2024 take 17 g by mouth every twenty-fo ur hours as needed for constipat ion 17 g, Oral, Daily PRN, constipation, Starting on 07/29/24 at 1654, 1st line for treatment of constipation - give scheduled if no bowel movement in past 24 hours. predniSONE 5 mg oral tablet (6 sources) Start: 07-05-2023 End: 09-21-2023 Prednisone 5 mg tablets,dose pack Discontinued 0 PO per package directions July 05, 2023 12:00am September 21, 2023 8:19am PO PER PKG DIR 5 ml sodium chloride 9 mg/ml injection (11 sources) Start: 07-29-2024 End: 08-01-2024 10 mL, IntraVENous, Every 12 hours scheduled (2 times per day), First dose on 07/29/24 at 2100 Start: 07-29-2024 End: 07-30-2024 take 75 mL intravenously every hour 75 mL/hr, IntraVENous, Continuous, Starting on 07/29/24 at 1715 Start: 07-29-2024 End: 08-01-2024 take 10 mL intravenously every hour, then take 20 mL intravenously every hour 10 mL, IntraVENous, at 5-250 mL/hr, PRN, line care, if patient receiving piggybac infusions and maintaince fluids are not ordered OR KVO fluids to protect IV site / prevent frequent line interruptions/ long duration, Starting on 07/29/24 at 1654, For piggyback infusion, administer at same rate as piggyback for a total of 25 mL into dose field and piggyback rate into rate field of order. If piggyback is infusing at a rate less than 100 mL/hr, enter 25 mL into dose field and 100 mL/hr into rate field of order. For KVO fluids, enter rate of 20 mL/hr or less into rate field of order. Start: 07-29-2024 End: 08-01-2024 take 10 mL intravenously once as needed 10 mL, IntraVENous, PRN, line care, Starting on 07/29/24 at 1654, After every IV line use Start: 11-09-2021 0.9 % sodium c hloride infusion Start: 11-09-2021 sodium chlorid e flush 0.9 % injection 5-40 mL vancomycin 1000 MG IVPB in 2 50 mL D5W add-vantage (1 source) Start: 11-09-2021 End: 11-09-2021 vancomycin 1000 MG IVPB in 2 50 mL D5W add-vantage Problems Active Problems Problem Classification Problem Date Documented Da te Episodic/Chronic Acute cerebrovascular disease (20 sources) Intraparenchymal hemorrhage of brain; Translations: [Nontraumatic intracerebral hemorrhage, unspecified] Onset: 5 07-29-2024 Chronic Allergic reactions (6 sources) Contact dermatitis due to poison oak; Translations: [Allergic contact dermatitis due to plants, except food] 07-05-2023 Episodic Conduction disorders (20 sources) Encounter for adjustment and management of automatic implantable cardiac defibrillator; Translations: [Automatic implantable cardiac defibrillator in situ] Onset: 2 Chronic Congestive heart failure; nonhypertensive (14 sources) Congestive heart failure; Translations: [Heart failure, unspecified] Onset: 5 08-25-2022 Chronic Coronary atherosclerosis and other heart disease (20 sources) Atherosclerotic heart disease of [place] coronary artery without angina pectoris; Translations: [Old myocardial infarction] Onset: 2 Chronic Disorders of lipid metabolism (20 sources) Hyperlipidemia, unspecified; Translations: [Hyperlipidemia] Onset: 7 Chronic Epilepsy; convulsions (3 sources) Localization-related epilepsy; Translations: [Localization-related (focal) (partial) symptomatic epilepsy and epileptic syndromes with simple partial seizures, not intractable, without status epilepticus] Onset: 5 10-17-2024 Chronic Epilepsy; convulsions (6 sources) Seizure; Translations: [Unspecified convulsions] Onset: 5 10-12-2024 Episodic Essential hypertension (10 sources) Hypertensive disorder; Translations: [Essential (primary) hypertension] Onset: 5 08-25-2022 Chronic Genitourinary symptoms and ill-defined conditions (8 sources) Acute retention of urine ; Translations: [Other retention of urine] Onset: 4 12-06-2023 Episodic Hyperplasia of prostate (1 source) Benign prostatic hyperplasia with lower urinary tract symptoms; Translations: [Benign prostatic hyperplasia with lower urinary tract symptoms] Onset: 4 Chronic Hypertension with complications and secondary hypertension (1 source) Hypertensive heart disease with heart failure; Translations: [Hypertensive heart disease with heart failure] Onset: 5 Chronic Other aftercare (2 sources) long term care phlebotomist (current) use of aspirin; Translations: [long-term (current) use of aspirin] Onset: 2 Episodic Other aftercare (8 sources) Post-discharge follow-up; Translations: [Encounter for follow-up examination after completed treatment for conditions other than malignant neoplasm] 08-07-2024 Episodic Other aftercare (1 source) Patient encounter status; Translations: [Encounter for palliative care] 08-22-2024 Episodic Other aftercare (1 source) H/O: high risk medication; Translations: [Other dedicated intermodal truck driver (current) drug therapy] 10-17-2024 Episodic Other aftercare (2 sources) Other dedicated intermodal truck driver (current) drug therapy; Translations: [Other dedicated intermodal truck driver (current) drug therapy] Onset: 5 Episodic Other aftercare (2 sources) Encounter for palliative care; Translations: [Encounter for palliative care] Onset: 5 Episodic Other and ill-defined heart disease (6 sources) Heart disease, unspecified; Translations: [Heart disease, unspecified] Onset: 2 Chronic Other and ill-defined heart disease (20 sources) Left ventricular cardiac dysfunction; Translations: [Heart disease, unspecified] Onset: 7 05-26-2016 Chronic Other and ill-defined heart disease (8 sources) Heart disease; Translations: [Heart disease, unspecified] 08-25-2022 Chronic Other connective tissue disease (11 sources) Dupuytren's contracture; Translations: [Palmar fascial fibromatosis [Dupuytren]] 08-25-2022 Episodic Other connective tissue disease (1 source) Palmar fascial fibromatosis [Dupuytren]; Translations: [Contracture of palmar fascia] 08-25-2022 Episodic Other connective tissue disease (8 sources) Muscle weakness of upper limb; Translations: [Other symptoms and signs involving the musculoskeletal system] 08-07-2024 Episodic Other ear and sense organ disorders (7 sources) Hearing loss; Translations: [Unspecified hearing loss, unspecified ear] 08-25-2022 Chronic Other gastrointestinal disorders (6 sources) Irritable bowel syndrome; Translations: [Irritable bowel syndrome without diarrhea] 09-21-2023 Chronic Other male genital disorders (6 sources) Acquired phimosis; Translations: [Phimosis] 12-06-2023 Episodic Other male genital disorders (6 sources) Phimosis; Translations: [Phimosis] 02-01-2024 Episodic Other nervous system disorders (6 sources) Ataxia; Translations: [Ataxia, unspecified] 07-29-2024 Episodic Other nervous system disorders (6 sources) Numbness of hand; Translations: [Anesthesia of skin] 07-29-2024 Episodic Other nervous system disorders (3 sources) Anesthesia of skin; Translations: [Anesthesia of skin] Onset: Episodic Other nervous system disorders (1 source) Paresthesia of hand ; Translations: [Anesthesia of skin] 10-03-2024 Episodic Other nervous system disorders (2 sources) Paresthesia of skin; Translations: [Paresthesia of skin] Onset: Episodic Other nutritional; endocrine; and metabolic disorders (2 sources) Hyperbilirubinemia; Translations: [Other disorders of bilirubin metabolism] 10-23-2024 Chronic Other nutritional; endocrine; and metabolic disorders (2 sources) Hypercalcemia; Translations: [Hypercalcemia] 10-23-2024 Chronic Other skin disorders (8 sources) Lesion of scalp; Translations: [Disorder of the skin and subcutaneous tissue, unspecified] 08-07-2024 Episodic Residual codes; unclassified (5 sources) Peripheral edema; Translations: [Localized edema] 09-04-2024 Episodic Unclassified (4 sources) Lesion of skin of scalp Unclassified (8 sources) L98.9 - Disorder of the skin and subcutaneous tissue, unspecified Unclassified (4 sources) Dupuytren's contracture of both hands Unclassified (8 sources) M72.0 - Palmar fascial fibromatosis [Dupuytren] Unclassified (4 sources) Weakness of left upper extremity Unclassified (8 sources) R29.898 - Other symptoms and signs involving the musculoskeletal system Unclassified (1 source) I will notify [facility] of the results and the follow-up. 10-23-2024 Past or Other Problems Problem Classification Problem Date Documented Da te Episodic/Chronic Coronary atherosclerosis and other heart disease (20 sources) Presence of coronary angioplasty implant and graft; Translations: [Stent in anterior descending branch of left coronary artery] Onset: 05-26-2016 Episodic Other male genital disorders (1 source) Phimosis; Translations: [Phimosis] Onset: 02-01-2024 Episodic Results Test Name Value Interpretation Reference Range Facility 37on 10-17-2024 37 Your plan: - Please complete the blood work - Please take Keppra 500mg in the morning and 750mg at night - Advised regarding a avoid driving for 6 months after the last seizure. - Lifestyle modifications, particularly the importance of refraining from alcohol and drugs, strict compliance, ensuring sufficient amount of sleep regularly and consuming multiple smaller meals and sufficient amount of water, Advised to avoid any activities where there is a risk of serious injury in the event of a seizure. These activities, for example, include (but not limited to) climbing heights, operating heavy machines, working with open flame, swimming unattended by a reliable helper, etc. - I highly recommend using this free platform to improve your memory. You can find more info on [email or web address] To sign-up for the free program, simply email [email or web address] and say you?d like to enroll in [employer]. Researchers at [facility] have developed an evidence based self- management program tailored to individuals living with epilepsy and cognitive challenges. HOBSCOTCH (which stands for Home-Based Self-Management and Cognitive Training Changes Lives) consists of eight, one-on-one, FREE telehealth counseling sessions with a certified Cognitive Utility System Repairer, each lasting about 45 minutes to one hour. The sessions help individuals with epilepsy to adapt and work through various difficulties, including thinking or memory problems. Normal [facility] COMPREHENSIVE METABOLIC PANE Carlos 10-17-2024 Albumin [Mass/Vol] 4.0 g/dL Normal 3.4-4.8 [facility] Comment on above: Performed By: #### L [id number] #### Milling Machine Operator Gear: MARY MOLINA ([id number]) [facility] ([facility]) [address] [place] [address] ALP [Catalytic activity/Vol] 90 U/L Normal 40-150 [facility] Comment on above: Performed By: #### L [id number] #### Milling Machine Operator Gear: MARY MOLINA ([id number]) [facility] ([facility]) [address] [place] [address] ALT [Catalytic activity/Vol] 31 U/L Normal <40 [facility] Comment on above: Performed By: #### L [id number] #### Milling Machine Operator Gear: MARY MOLINA ([id number]) [facility] ([facility]) [address] [place] [address] Anion gap [Moles/Vol] 8 mmol/L Normal 3-13 [facility] [facility] Comment on above: Performed By: #### L [id number] #### Milling Machine Operator Gear: MARY MOLINA ([id number]) [facility] ([facility]) [address] [place] [address] AST [Catalytic activity/Vol] 27 U/L Normal <34 [facility] Comment on above: Performed By: #### L [id number] #### Milling Machine Operator Gear: MARY MOLINA ([id number]) [facility] ([facility]) [address] [place] [address] Bilirubin [Mass/Vol] 1.5 mg/dL High <1.[address] [facility] Comment on above: Performed By: #### L [id number] #### Milling Machine Operator Gear: MARY MOLINA ([id number]) [facility] ([facility]) [address] [place] [address] Calcium [Mass/Vol] 11.1 mg/dL High 8.8-10.0 [facility] Comment on above: Performed By: #### L [id number] #### Milling Machine Operator Gear: MARY MOLINA ([id number]) [facility] ([facility]) [address] [place] [address] [place] Chloride [Moles/Vol] 105 mmol/L Normal 98-[address] [facility] Comment on above: Performed By: #### L [id number] #### Milling Machine Operator Gear: MARY MOLINA ([id number]) [facility] ([facility]) [address] [place] [address] [place] CO2 [Moles/Vol] 26 mmol/L Normal 23-31 [facility] Comment on above: Performed By: #### L [id number] #### Milling Machine Operator Gear: MARY MOLINA ([id number]) [facility] ([facility]) [address] [place] [address] Creatinine [Mass/Vol] 0.99 mg/dL Normal 0.72-1.25 [facility] Comment on above: Performed By: #### L [id number] #### Milling Machine Operator Gear: MARY MOLINA ([id number]) [facility] ([facility]) [address] [place] [address] GLOMERULAR FILTRATION RATE ML/MIN/1.73 SQ M.PREDICTED 72.8 mL/min/1.73m*2 Normal >60.0 [facility] Comment on above: Result Comment: Calc ulation based on the Chronic Kidney Disease Epidemiology Collaboration (CKD-EPI) equation refit without adjustment for race Performed By: #### L [id number] #### Milling Machine Operator Gear: MARY MOLINA ([id number]) [facility] ([facility]) [address] [place] [address] Glucose [Mass/Vol] 102 mg/dL Normal 82-115 [facility] Comment on above: Performed By: #### L [id number] #### Milling Machine Operator Gear: MARY MOLINA ([id number]) [facility] ([facility]) [address] [place] [address] [place] Potassium [Moles/Vol] 4.5 mmol/L Normal 3.5-5.1 [facility] Comment on above: Result Comment: [facility] potassium values may be up to 0.5 mmol/L lower than serum values. Performed By: #### L [id number] #### Milling Machine Operator Gear: MARY MOLINA ([id number]) [facility] ([facility]) [address] [place] [address] Protein [Mass/Vol] 7.4 g/dL Normal 6.4-8.3 [facility] Comment on above: Performed By: #### L [id number] #### Milling Machine Operator Gear: MARY MOLINA ([id number]) [facility] ([facility]) [address] [place] [address] Sodium [Moles/Vol] 139 mmol/L Normal 136-145 [facility] Comment on above: Performed By: #### L [id number] #### Milling Machine Operator Gear: MARY MOLINA ([id number]) [facility] ([facility]) [address] [place] [address] Urea nitrogen [Mass/Vol] 14 mg/dL Normal 9-23 [facility] Comment on above: Performed By: #### L [id number] #### Milling Machine Operator Gear: MARY MOLINA ([id number]) [facility] ([facility]) [address] [place] [address] Comprehensive metabolic 1998 panelon 10-17-2024 Albumin [Mass/Vol] 4 g/dL 3.4 - 4.8 g/dL [facility] ALP [Catalytic activity/Vol] 90 U/L 40 - 150 U/L [facility] ALT [Catalytic activity/Vol] 31 U/L NINF - 40 U/L [facility] Anion gap [Moles/Vol] 8 mmol/L 3 - 13 mmol/L [facility] AST [Catalytic activity/Vol] 27 U/L [facility] - 34 U/L [facility] Bilirubin [Mass/Vol] 1.5 mg/dL High NINF - 1.2 mg/dL [facility] Calcium [Mass/Vol] 11.1 mg/dL High 8.8 - 10. 0 mg/dL [facility] Chloride [Moles/Vol] 105 mmol/L 98 - 10 7 mmol/L [facility] CO2 [Moles/Vol] 26 mmol/L 23 - 31 mmol/L [facility] Creatinine [Mass/Vol] 0.99 mg/dL 0.72 - 1.25 mg/dL [facility] GFR/1.73 sq M.predicted (S/P/Bld) [Vol rate/Area] 72.8 mL/min - PINF [facility] Comment on above: Calculation based on the Chronic Kidney Disease Epidemiology Collaboration (CKD-EPI) equation refit without adjustment for race Glucose [Mass/Vol] 102 mg/dL 82 - 115 mg/dL [facility] Interpretation and review of laboratory results Abnormal [facility] Potassium [Moles/Vol] 4.5 mmol/L 3.5 - 5.1 mmol/L [facility] Comment on above: Plasma potassium deb ues may be up to 0.5 mmol/L lower than serum values. Protein [Mass/Vol] 7.4 g/dL 6.4 - 8.3 g/dL [facility] Sodium [Moles/Vol] 139 mmol/L 136 - 145 mmol/L [facility] Urea nitrogen [Mass/Vol] 14 mg/dL 9 - 23 mg/dL [facility] LEVETIRACETAM LEVEL (BKR QUE ST)on 10-17-2024 QUE[facility] LEVETIRACETAM, IMMUNOASSAY 18.4 mcg/mL Normal 6.0-46.0 [facility] Comment on above: Result Comment: Brivaracetam (Briviact(R), Rikelta(R)) exhibits significant cross-reactivity in the Levetiracetam (Keppra(R), Spritam(R)) immunoassay. If Brivaracetam has been prescribed, order test code 37111 Levetiracetam by LCMSMS. Test Performed by [employer] [employer] [facility], [address] [place] [id number] Ky Serra M.D., Ph.D., Director of Laboratories , CLIA [id number] Performed By: #### L [id number], [id number], [id number] #### Milling Machine Operator Gear: MARY MOLINA ([id number]) [facility] ([facility]) [address] [place] [address] Office Visiton 10-17-2024 Follow-up visit [id number] Marcia Meredith 1935 M Date Provider Department Center 10/17/2024 [id number]-OQKSLANEY DARDEN*[facility] None Family History Problem Relation Age of Onset Heart failure Mother Heart Surgery Mother Heart disease Mother Pacemaker Brother Heart failure Brother Heart failure Sister Heart failure Sister Family Status - Relation Status Age at Mother Brother Alive Father Sister Alive Sister Alive Level of Service:36714 [place] OFFICE/OUTPATIENT ESTABLISHED HIGH MDM 40 MIN Reason for Visit and Comments: New Patient [542] - Seizures Normal [facility] Progress Noteon 10-17-2024 Progress Note Department of Neurological Sciences Section of Epilepsy [facility] [address] [place] [address] TEL: [phone] FAX:[phone] Epilepsy Clinic - New Referral Dear Dr. Altman, I had the pleasure of seeing Mr. Efraín Meredith in the subspecialty Epilepsy Clinic. Chief Complaint: Seizures History of Present Illness: Mr. Efraín Meredith is a 89 y.o. 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 Altman for intermittent left hand numbness c/f seizure. Today accompanied by . Timeline of events: - 07/29/2024, had acute onset of left arm numbness, aphasia and balance disturbance, was found to have R central sulcus SAH. - Since SAH, intermittently had right posterior hand numbness/paresthesia, occasionally may travel to upper arm, lasts 15 minutes and resolves completely. - Denies any sensory symptoms in other extremities, weakness, jerking/twitching, dropping objects, no recent falls, staring off/zoning out. - since his stroke, he has been confused about hs meds and loses track of time. - He was started LEV 500mg bid, not missing any doses. No side effects. - Am dose was discontinued by FERTILIZING MACHINE OPERATOR and Dr. Altman restarted am dose last week. - Mood: ok, life is beautiful Seizure type I - left hand numbness Onset: 07/29/24 Aura: none Ictal: right hand numbness, no jerking/twitching Duration: 15 minutes Post-Ictal: none Frequency: 1-2/day Triggers: none Last seizure: 10/16/24 Epilepsy Risk Factors: Abnormal : no Abnormal /: no Abnormal Development: no Febrile seizures: no [employer] infection: no Cerebral palsy: no Head injury (moderate/severe): no [employer]IR neoplasm: no [employer] malformation: no Neurosurgical procedure: no Stroke: 2024 Alcohol use disorder: no Drug abuse: no Family history Sz/epilepsy: no Current ASMs: LEV 500mg bid Prior ASMs: None Diagnostic studies: EEG : 07/31/24 routine normal 3T MRI: 07/2024 I personally reviewed the images, T2 flair hyperintensity along the right precentral gyrus consistent with SAH, mild chronic microvascular changes EMU: No Neuropsych: No Pertinent Labs: Reviewed No prior LEV level on file BMP wnl Medications: Medication Documentation Review Audit Reviewed by Josephine Silvestre MD (Physician) on 10/17/24 at 1010 Medication Order Taking? Sig Documenting Provider Last Dose Status aspirin 81 MG EC tablet [id number] Yes Take 81 mg by mouth daily. Historical Provider, Active atorvastatin (Lipitor) 20 MG tablet [id number] Yes Take 1 tablet (20 mg) by mouth Nightly. Sylvester Mohan DO Active atorvastatin (Lipitor) 20 MG tablet [id number] Yes Take 20 mg by mouth daily. Historical ProviderMD Active carvedilol (Coreg) 6.25 MG tablet [id number] Yes Take 1 tablet (6.25 mg) by mouth 2 times daily (with meals). Chantel Huntley APRN - RIMA Active finasteride (Proscar) 5 MG tablet [id number] Yes Take 5 mg by mouth daily. Historical ProviderMD Active furosemide (Lasix) 20 MG tablet [id number] Yes Take 1 tablet (20 mg) by mouth daily. Patient taking differently: Take by mouth as needed. Chantel Huntley APRN - RIMA Active levETIRAcetam (Keppra) 500 MG tablet [id number] Yes Take 1 tablet (500 mg) by mouth 2 times daily. Patient taking differently: Take 500 mg by mouth daily. Sylvester Mohan DO Active nitroglycerin (Nitrostat) 0.4 MG SL tablet [id number] Yes Place 0.4 mg under the tongue as needed. Patient taking differently: Place 0.4 mg under the tongue as needed for chest pain. Historical ProviderMD Active spironolactone (Aldactone) 25 MG tablet [id number] Yes Take 0.5 tablets (12.5 mg) by mouth daily. Jessica Arenas APRN - RIMA Active tamsulosin (Flomax) 0.4 MG 24 hr capsule [id number] Yes Take 0.4 mg by mouth daily. Historical ProviderMD Active ROS: 10 point review of systems negative except as in HPI. Physical examination: Vitals: 10/17/24 0952 BP: 117/74 Pulse: 70 GEN: NAD HEENT: No conjunctival injection, no rhinorrhea. Head tilt to left PULM: Nonlabored respirations on room air. Neuro: MS: Alert, oriented to person, place, date. Speech is fluent with no paraphrasias. No dysarthria. CN: EOMI. Facial muscles symmetric without weakness. Hearing intact to conversation. MOTOR: Normal bulk and tone. No pronator drift. 5/5 throughout REFLEXES: 1+ throughout COORDINATION: No dysmetria or ataxia on [id number]. Slight b/l kinetic tremors. SENSORY: LT intact, extinction -ve GAIT: Normal gait, can rise from chair w/o using arms Impression and Recommendations: Mr. Efraín Meredith is a 89 y.o. 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 I reviewed the MRIB with the patient, the location of SAH is highly epilpetogenic and patient needs to be on (more content not included)... Normal [facility] Office Visiton 10-11-2024 Follow-up visit [id number] Marcia Meredith 1935 M Date Provider Department Center 10/11/2024 [id number] GARCIA [facility] None Family History Problem Relation Age of Onset Heart failure Mother Heart Surgery Mother Heart disease Mother Pacemaker Brother Heart failure Brother Heart failure Sister Heart failure Sister Family Status - Relation Status Age at Mother Brother Alive Father Sister Alive Sister Alive Level of Service:74679 [place] OFFICE/OUTPATIENT ESTABLISHED HIGH MDM 40 MIN Reason for Visit and Comments: Follow-up [241342] - Gets KONG under a car stooping, head feels like being squeezed. Left hand numbness and tingling off/on-->Qiu adjusting medication. Normal [facility] Progress Noteon 10-11-2024 Progress Note Endovascular neurointerventional surgery note Reason for follow-up: Recent cortical sulcal subarachnoid hemorrhage HPI: The patient is a 60-oxnb-joau-old man who was recently admitted for headache and CT head and MRI demonstrated a right central sulcus subarachnoid hemorrhage. CT angiogram, followed by diagnostic cerebral angiogram did not demonstrate any aneurysm or vascular lesion. Patient was subsequently discharged home. He reports that he has been having repeated episodes of numbness/tingling starting in the left hand and forearm. Occasionally the symptoms will go to the upper arm. There has been no motor movements or any changing mental status. He was recently seen by neurology PALLAVI colleague who has started tapering his antiepileptic drugs Medical History[1] Surgical History[2] Current Medications[3] Review of systems Sensory symptoms as described above Headaches are better No active chest pain No new shortness of breath No bleeding or bruising No new GI symptoms No new skeletal symptoms Exam: Patient is awake and alert Engages in meaningful conversation There is no facial asymmetry Visual bass are full to confrontation Speech is normal Strength is equal and symmetric in both upper and lower extremities. Strength is 5 out of 5 There are no abnormal sensations There is no ataxia Gait is normal Impression: Recent history of right cortical subarachnoid hemorrhage, no aneurysm or vascular lesion found Recurrent episodes of numbness/tingling in the left hand and forearm. The episodes are not reproducible by any hyperflexion or hyperextension of the wrist. Based on the location of the subarachnoid hemorrhage, there is a high suspicion of partial seizures. Recommendations MRI brain with and without contrast. Hopefully the subarachnoid hemorrhage is resolved and will be able to visualize a previously obscured of occult pathology in the right central sulcus I have advised him to resume his Keppra dose and not taper it. In the meantime, I have referred him to my epilepsy colleague for evaluation and an EEG because of high suspicion of partial seizures. Follow-up in 3 months. 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 LV dysfunction [place] (myocardial infarction) 2011 Anterior Presence of stent in LAD coronary artery 07/05/02 : AYLIN to LAD, 10/18/11: AYLIN to ISS LAD Stroke ([facility]) 1999 [2] Past Surgical History: Procedure Laterality Date CARDIAC DEFIBRILLATOR PLACEMENT CARDIAC PROCEDURE CAROTID STENT 01/17/2012 CORONARY ANGIOPLASTY [3] Current Outpatient Medications: aspirin 81 MG EC tablet, Take 81 mg by mouth daily., Disp: , Rfl: carvedilol (Coreg) 6.25 MG tablet, Take 1 tablet (6.25 mg) by mouth 2 times daily (with meals)., Disp: 180 tablet, Rfl: 1 furosemide (Lasix) 20 MG tablet, Take 1 tablet (20 mg) by mouth daily. (Patient taking differently: Take by mouth as needed.), Disp: 30 tablet, Rfl: 0 levETIRAcetam (Keppra) 500 MG tablet, Take 1 tablet (500 mg) by mouth 2 times daily. (Patient taking differently: Take 500 mg by mouth daily.), Disp: 60 tablet, Rfl: 11 nitroglycerin (Nitrostat) 0.4 MG SL tablet, Place 0.4 mg under the tongue as needed. (Patient taking differently: Place 0.4 mg under the tongue as needed for chest pain.), Disp: , Rfl: spironolactone (Aldactone) 25 MG tablet, Take 0.5 tablets (12.5 mg) by mouth daily., Disp: 45 tablet, Rfl: 1 tamsulosin (Flomax) 0.4 MG 24 hr capsule, Take 0.4 mg by mouth daily., Disp: , Rfl: atorvastatin (Lipitor) 20 MG tablet, Take 1 tablet (20 mg) by mouth Nightly., Disp: 30 tablet, Rfl: 11 atorvastatin (Lipitor) 20 MG tablet, Take 20 mg by mouth daily., Disp: , Rfl: finasteride (Proscar) 5 MG tablet, Take 5 mg by mouth daily., Disp: , Rfl: Normal [facility] 37on 10-03-2024 37 Taper off levitiracetam (keppra) - stop morning dose for 1 week, then stop night dose. Call me if tingling symptoms in left hand increases. Don't resume driving until we see how you do off the medication. Dr. Altman - 10/11/24 2pm [facility] [place] Department Physical Address: [address] [place] [id number] [facility] Office Visiton 10-03-2024 Follow-up visit [id number] Duy Meredithcrissy colon 1935 M Date Provider Department Brice 10/03/2024 [id number]-PDMPBJETCONNIE MIRANDA [facility] None Family History Problem Relation Age of Onset Heart failure Mother Heart Surgery Mother Heart disease Mother Pacemaker Brother Heart failure Brother Heart failure Sister Heart failure Sister Family Status - Relation Status Age at Mother Brother Alive Father Sister Alive Sister Alive Level of Service:38171 [place] OFFICE/OUTPATIENT ESTABLISHED MOD MDM 30 MIN Reason for Visit and Comments: Follow-up [762864] Hospital Follow-up [832] - Brain bleed Normal [facility] Progress Noteon 10-03-2024 Progress Note Visit type: Established Patient Reason for Visit: Follow-up and Hospital Follow-up (Brain bleed) Assessment and Plan 1. SAH (subarachnoid hemorrhage) (HCC) 2. Numbness and tingling in left hand Subjective HPI: Hospital follow up - SAH 08/08 likely r/t HTN- presented with intermittent slurred speech, LUE weakness and numbness Hx HTN, HLD, CAD, s/p stent, HFrEF (25%); s/sp ICD, TIA CT Head 07/29/24: Subarachnoid hemorrhage within the superior right frontal lobe, just anterior to the central sulcus. CT Head 07/30/24: Stable small volume acute subarachnoid hemorrhage. No new acute findings CTA head/neck 07/29/24: The intracranial right vertebral artery is faintly opacified and only a few thin and diminutive portions of the left intracranial vertebral artery are opacified. Only the thin and diminutive distal basilar artery is opacified. MRI Brain/MRV head 07/30/24: 1. Negative for dural venous sinus thrombosis. 2. Stable subarachnoid hemorrhage along the right central sulcus. No other acute intracranial abnormalities. 3. 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 TTE 07/29/24 - 27% Followed by neuroendovascular while in patient; will follow OP 10/11/24 Diagnostic angiogram - no aneurysms, vascular malformation, or intracranial dissection identified as cause. Mild multifocal intracranial atherosclerosis. Placed on Keppra 500mg BID for ongoing complaints of fluctuating tingling sensation - EEG 08/08- NL No history of seizures. Today, patient states each day he gets a little better; working our in the yard Speech is back to normal. No more weakness in LUE. Still having intermittent tingling in last finger tips of left hand that sometime goes up to elbow (it was the entire left arm when he presented to ED); lasts about 45 mins then goes away. Overall, this is better than when he first went into hospital. No trigger. No pain in neck, hand, or shooting pain from neck.. He is still taking Keppra 500mg BID and having this sensation. Evaluated by PT - said not needed. REVIEW OF SYSTEMS: Review of Systems Neurological: Tingling in left hand intermittently All other systems reviewed and are negative. Allergies[1] Current Medications[2] Medical History[3] Social History Tobacco Use Smoking status: Never Smokeless tobacco: Never Substance Use Topics Alcohol use: Yes Alcohol/week: 1.0 standard drink of alcohol Types: 1 Glasses of wine per week Comment: occasional/wine or beer Surgical History[4] Family History[5] Objective Vitals: BP 130/66 (BP Location: Left arm, Patient Position: Sitting, BP Cuff Size: Adult) Pulse 65 Ht 5' 6 (1.676 m) Wt 139 lb 9.6 oz (63.3 kg) BMI 22.53 kg/m? General Appearance: Patient is in no apparent distress. Head is normocephalic, atraumatic Cardiovascular: Regular rate and rhythm. No heart murmurs. No carotid bruit Neurologic: Mentation: Alert and oriented x 3 to person, place and time. Speech and Language: Speech and language normal Concentration and Attention: Concentration normal Memory: Memory normal 3/3 immediate and short recall Fund of Knowledge: Fund of knowledge normal Cranial Nerves: II, III, IV, V, , VII, VIII, IX, X, XI, XII examined and were intact. Motor: Strength: Strength 5 out of 5 with normal tone Alternating Movements: Normal Cogwheel Rigidity: None Tone: Tone is normal Tremor / Involuntary Movements: None Deep Tendon Reflexes: 1 out of 4 symmetrical in all four limbs. Sensory: Normal sensation upper and lower extremities - pinprick and vibratory sensation normal left upper Coordination: Normal coordination upper and lower extremities Gait and Station: Station is normal. Gait is normal Data Reviewed and Summarized DIAGNOSTIC TESTING CBC: Lab Results Component Value Date WBC 11.4 (H) 08/01/2024 RBC 4.85 08/01/2024 RBC 4.97 10/26/2021 HGB 14.0 08/01/2024 HCT 42.1 08/01/2024 MCV 86.8 08/01/2024 MCH 28.9 08/01/2024 MCHC 33.3 08/01/2024 RDW 13.3 08/01/2024 PLT 215 08/01/2024 MPV 11.0 08/01/2024 CMP: Lab Results Component Value Date NA 137 08/01/2024 K 4.0 08/01/2024 CL 108 (H) 08/01/2024 CO2 21 (L) 08/01/2024 BUN 16 08/01/2024 CREATININE 0.92 08/01/2024 CREATININE 1.23 10/26/2021 LABGLOM 59 10/26/2021 GLUCOSE 115 08/01/2024 PROT 7.1 08/01/2024 CALCIUM 9.2 08/01/2024 BILITOT 0.9 08/01/2024 ALKPHOS 74 08/01/2024 AST 20 08/01/2024 ALT 25 08/01/2024 BMP: Lab Results Component Value Date NA 137 08/01/2024 K 4.0 08/01/2024 CL 108 (H) 08/01/2024 CO2 21 (L) 08/01/2024 BUN 16 08/01/2024 CREATININE 0.92 08/01/2024 CREATININE 1.23 10/26/2021 CALCIUM 9.2 08/01/2024 LABGLOM 59 10/26/2021 GLUCOSE 115 08/01/2024 PT/INR: Lab Results Component Value Date PROTIME 11.1 08/01/2024 INR 1.0 08/01/2024 PTT: Lab Results C (more content not included)... Normal [facility] 36on 09-24-2024 36 Last OV-08/08/24 Next OV-02/04/25 Labs- 08/01/24 Normal [facility] 36 PC to patient's going over medication and it is ordered as PRN for leg swelling, she verbalized understanding Normal [facility] 36 HE can take Lasix 20mg/d PRN for edema. I sent #30 tablets in to his pharmacy with daily instructions but he should only take if needed Normal [facility] 36 PC to patient's , reports increase RLE swelling for about 4 weeks, PCP gave patient 1 weeks worth of lasix helped when he was taking but now is swelling back up again, is still taking aldactone 12.5mg daily. Patient not complaining of SOB reports mild cough in the AM and has to sit up in recliner and can't lay flat which is not new for the patient. Reached back out to the PCP which they recommended they call our office Last BMP 08/01/24 - K 4.0 Normal [facility] 36 Call from Lily,(Mrs) [phone] with concerns about the patient having R LE edema for a few weeks. Please advise. Normal [facility] Anion gap in Serum or Plasma Ordered By: Jennifer Casas on 09-04-2024 Anion gap [Moles/Vol] 11 mmol/L 5-15 [facility] BUN/creatinine ratioOrdered By: Jennifer Casas on 09-04-2024 Urea nitrogen/Creatinine [Mass ratio] 14.4 mg/mg 10-20 [facility] Bilirubin, totalOrdered By: Jennifer Casas on 09-04-2024 Bilirubin [Mass/Vol] 1.25 mg/dL 0.00-1.30 [facility] CBC-Complete Blood Cnt No Di ffon 09-04-2024 Erythrocyte distribution width (RBC) [Ratio] 13.4 % Normal 11.6-14.6 [facility] Comment on above: Performed By: #### L 100.0500, L503.7505, L500.4050 #### [facility] [address] [place], [address] Hematocrit (Bld) [Volume fraction] 44.0 % Normal 40-54 [facility] Comment on above: Performed By: #### L 100.0500, L503.7505, L500.4050 #### [facility] [address] [place], [address] Hemoglobin (Bld) [Mass/Vol] 14.1 g/dL Normal 13.0-16.5 [facility] Comment on above: Performed By: #### L 100.0500, L503.7505, L500.4050 #### [facility] [address] [place], [address] MCH (RBC) [Entitic mass] 28.7 pg Normal 27.0-32.0 [facility] Comment on above: Performed By: #### L 100.0500, L503.7505, L500.4050 #### [facility] [address] [place], [address] MCHC (RBC) [Mass/Vol] 32.0 g/dL Normal 32-36 [facility] Comment on above: Performed By: #### L 100.0500, L503.7505, L500.4050 #### [facility] [address] [place], [address] MCV (RBC) [Entitic vol] 89.6 fL Normal 80-94 [facility] Comment on above: Performed By: #### L 100.0500, L503.7505, L500.4050 #### [facility] [address] [place], [address] Platelet mean volume (Bld) [Entitic vol] 11.9 fL Normal 6.2-12.0 [facility] Comment on above: Performed By: #### L 100.0500, L503.7505, L500.4050 #### [facility] [address] [place], [address] Platelets (Bld) [#/Vol] 201 10*3/uL Normal 150-450 [facility] Comment on above: Performed By: #### L 100.0500, L503.7505, L500.4050 #### [facility] [address] [place], [address] RBC (Bld) [#/Vol] 4.91 10*6/uL Normal 4.6-6.2 [facility] Comment on above: Performed By: #### L 100.0500, L503.7505, L500.4050 #### [facility] [address] [place], [address] RDW SD 44.1 fl High 35.1-43.9 [facility] Comment on above: Performed By: #### L 100.0500, L503.7505, L500.4050 #### [facility] [address] [place], [address] WBC (Bld) [#/Vol] 13.0 10*3/uL High 4.4-11.0 [facility] Comment on above: Performed By: #### L 100.0500, L503.7505, L500.4050 #### [facility] [address] [place], [address] Carbon dioxide, total [Moles /volume] in Central venous bloodOrdered By: Jennifer Casas on 09-04-2024 CO2 [Moles/Vol] 22.6 mmol/L 21.0-32.0 [facility] Chloride assayOrdered By: Anthony Casas on 09-04-2024 Chloride [Moles/Vol] 107 mmol/L 98-108 [facility] Comprehensive Metabolic Prof ilon 09-04-2024 Albumin [Mass/Vol] 4.3 g/dL Normal 3.4-4.8 [facility] Comment on above: Performed By: #### L 100.0500, L503.7505, L500.4050 #### [facility] [address] [place], [address] Albumin/Globulin [Mass ratio] 1.6 {ratio} Normal 0.9-2.4 [facility] Comment on above: Performed By: #### L 100.0500, L503.7505, L500.4050 #### [facility] [address] [place], [address] ALK PHOS 86 U/L Normal 40-129 [facility] Comment on above: Performed By: #### L 100.0500, L503.7505, L500.4050 #### [facility] [address] [place], [address] ALT [Catalytic activity/Vol] 23 U/L Normal <=46 [facility] Comment on above: Performed By: #### L 100.0500, L503.7505, L500.4050 #### [facility] [address] [place], [address] AST [Catalytic activity/Vol] 21 U/L Normal <=37 [facility] Comment on above: Performed By: #### L 100.0500, L503.7505, L500.4050 #### [facility] [address] [place], [address] Bilirubin [Mass/Vol] 1.25 mg/dL Normal 0.00-1.30 [facility] Comment on above: Performed By: #### L 100.0500, L503.7505, L500.4050 #### [facility] [address] [place], [address] BUN/CRE 14.4 RATIO Normal 10-20 [facility] Comment on above: Performed By: #### L 100.0500, L503.7505, L500.4050 #### [facility] [address] [place], [address] Calcium [Mass/Vol] 9.7 mg/dL Normal 7.6-11.0 [facility] Comment on above: Performed By: #### L 100.0500, L503.7505, L500.4050 #### [facility] [address] [place], [address] Chloride [Moles/Vol] 107 mmol/L Normal 98-108 [facility] Comment on above: Performed By: #### L 100.0500, L503.7505, L500.4050 #### [facility] [address] [place], [address] CO2 [Moles/Vol] 22.6 mmol/L Normal 21.0-32.0 [facility] Comment on above: Performed By: #### L 100.0500, L503.7505, L500.4050 #### [facility] [address] [place], [address] Creatinine [Mass/Vol] 0.99 mg/dL Normal 0.70-1.20 [facility] Comment on above: Performed By: #### L 100.0500, L503.7505, L500.4050 #### [facility] [address] [place], [address] GAP 11 Normal 5-15 [facility] Comment on above: Performed By: #### L 100.0500, L503.7505, L500.4050 #### [facility] [address] [place], [address] GFR/1.73 sq M.predicted among non-blacks MDRD (S/P/Bld) [Vol rate/Area] 73 mL/min/{1.73_m2} Normal >60 [facility] Comment on above: Result Comment: mL/m in/1.73m2 CKD-EPI Creatinine Equation (2020) Performed By: #### L 100.0500, L503.7505, L500.4050 #### [facility] [address] [place], [address] Globulin (S) [Mass/Vol] 2.7 g/dL Normal 2.2-4.2 [facility] Comment on above: Performed By: #### L 100.0500, L503.7505, L500.4050 #### [facility] [address] [place], [address] Glucose [Mass/Vol] 108 mg/dL High 70-99 [facility] Comment on above: Performed By: #### L 100.0500, L503.7505, L500.4050 #### [facility] [address] [place], [address] Potassium [Moles/Vol] 4.4 mmol/L Normal 3.3-5.1 [facility] Comment on above: Performed By: #### L 100.0500, L503.7505, L500.4050 #### [facility] [address] [place], [address] Sodium [Moles/Vol] 141 mmol/L Normal 133-145 [facility] Comment on above: Performed By: #### L 100.0500, L503.7505, L500.4050 #### [facility] [address] [place], [address] T PROT 7.0 g/dL Normal 5.9-8.4 [facility] Comment on above: Performed By: #### L 100.0500, L503.7505, L500.4050 #### [facility] [address] [place], [address] Urea nitrogen [Mass/Vol] 14 mg/dL Normal 4-19 [facility] Comment on above: Performed By: #### L 100.0500, L503.7505, L500.4050 #### [facility] [address] [place], [address] Erythrocyte distribution wid th ratioOrdered By: Jennifer Casas on 09-04-2024 Erythrocyte distribution width (RBC) [Ratio] 13.4 % 11.6-14.6 [facility] Erythrocyte distribution wid th standard deviationOrdered By: Jennifer Casas on 09-04-2024 Erythrocyte distribution width (RBC) [Ratio] 44.1 fl High 35.1-43.9 [facility] Glomerular filtration rate ( GFR) estimation/1.73 sq m using serum, plasma, or whole bOrdered By: Jennifer Casas on 09-04-2024 GFR/1.73 sq M.predicted among non-blacks MDRD (S/P/Bld) [Vol rate/Area] 73 mL/min/{1.73_m2} >60 [facility] Comment on above: mL/min/1.73m2 CKD-EP I Creatinine Equation (2020) Hematocrit Auto (Bld) [Volum e fraction]Ordered By: Jennifer Casas on 09-04-2024 Hematocrit (Bld) [Volume fraction] 44.0 % 40-54 [facility] Hemoglobin measurementOrdere d By: Jennifer Casas on 09-04-2024 Hemoglobin (Bld) [Mass/Vol] 14.1 g/dL 13.0-16.5 [facility] Office Vis iton 09-04-2024 Internal Medicine Office Visit [facility] [address] [place] [address] [place] [address] OFFICE VISIT Date of Service: 09/04/24 MR#: [id number] Acct: [id number] Name: EFRAÍN MEREDITH Rep #: [id number] : 1935 Provider: SAMIA gonzalez Age/Sex: 88/M Location[place] [facility] Status: Signed Intake Vital Signs 08/07/24 09:08 09/04/24 07:34 Height 5 ft 6 in 5 ft 6 in Weight: 143 lb 146 lb BMI 23.1 23.6 BP 108/70 100/60 Blood Pressure Location Lt brachial Lt brachial Position Sitting Sitting Respiration 16 18 Pulse 62 71 Pulse Source Monitor Monitor Temp 98.6 F 98.4 F Temp Source Temporal Temporal Pulse Oximetry (%) 98 71 Oxygen Delivery Method room air room air Intake Visit Reasons: DEHYDRATED AND PAIN IN FOOT Financial Services Agent Required: No Is patient in pain?: Yes (RLE) Pain scale (1-10): 2 Allergies No Known Allergies Allergy (Verified 09/04/24 07:24) Medications ???Medication ???Instructions ???Recorded ???Confirmed ???Type aspirin 81 mg chewable tablet 81 mg PO DAILY 09/11/15 09/04/24 H istory nitroglycerin 0.4 mg sublingual 0.4 mg sublingual Q5M PRN Chest 09/04/24 History tablet Pain simvastatin 40 mg tablet 40 mg PO QHS 09/11/15 09/04/24 His tory spironolactone 25 mg tablet 12.5 mg PO DAILY 09/11/15 09/04/24 History losartan 50 mg tablet 50 mg PO DAILY 08/25/22 09/04/24 H istory carvedilol 6.25 mg tablet 6.25 mg PO BID 01/19/24 09/04/24 H istory finasteride 5 mg tablet 5 mg PO DAILY 01/19/24 09/04/24 Hi story tamsulosin 0.4 mg capsule (Flomax) 0.4 mg PO DAILY 01/19/24 5 History furosemide 20 mg tablet (Lasix) 20 mg PO QDAY 7 days #7 tabs 09/0409/04/24 Rx Have you fallen in the past year?: No Nurse's Note: Pt states since brain bleed and return to home on 08/01/24 he has had some RLE swelling It is localized to the foot and ankle. Pt did not injure it. It is red, warm to touch and shiny on the toes. +1 pitting edema noted. Pt states he had the Cath on R groin. Pt states the swelling started in the toes and has worked it's way up. Pt's called in and message was relayed from Dr. stokes on 08/16/24. Pt states it does hurt, pt has been elevating . Pt has not been using compression. No drainage, or skin tears. Pt states it does seem to help if he walks on it a bit. He intially did not have pain. [facility] Medical History Loss of hearing Wears glasses Wears dentures Alcohol use High cholesterol Easy bruising Dietary restriction Non-smoker Hypertension History of stress test Cardiology follow-up encounter History of CHF (congestive heart failure) History of heart attack TIA (transient ischemic attack) Hx of fracture of hip Cardiac defibrillator in place Surgical History History of coronary artery stent placement History of cystoscopy Hx of right cataract extraction Hx of left cataract extraction Family History Mother CAD (coronary artery disease) Grandfather CAD (coronary artery disease) Brother Prostate cancer Sister Colon cancer Sister Throat cancer Social History adopted: No household members: spouse [...] feel safe at home: Yes HPI HPI Details: EFRAÍN MEREDITH, is a 88 M who presents to the office today for complaints of right foot and ankle swelling. States it has been swelling for some time but noticed more so in the last few days that the ankle was also swelling and somewhat achy. Patient did have approximately 1 month ago a cath in the right groin. No pain at cath site is noted. He does complain of coughing especially at night states getting up some clear phlegm. Has noticed some increased shortness of breath with activity. Denies chest pain or shortness of breath at this time. Patient did see physical therapy recently which they referred for Occupational Therapy to help with strengthening status post hemorrhagic stroke. Patient states both feet with shooting pains at times. States swelling in right foot seems to improve with elevation and gets worse throughout the day whenever it is hanging down or when he is walking on it. ROS Const Constitutional: No body ache, chills (more content not included)... Normal [facility] L503.7505on 09-04-2024 Natriuretic peptide B (Bld) [Mass/Vol] 1927 pg/mL High <=1800 [facility] Comment on above: Result Comment: Hear t Failure Unlikely: < 300 pg/mL Heart Failure Likely < 50 Years: > 450 pg/mL 50-75 Years: > 900 pg/mL >75 Years: > 1800 pg/mL Performed By: #### L 100.0500, L503.7505, L500.4050 #### [facility] [address] [place], [address] Laboratory - Chemistry and C hemistry - challengeOrdered By: Jennifer Casas on 09-04-2024 AST [Catalytic activity/Vol] 21 U/L <38 [facility] MCV (mean corpuscular volume ) determinationOrdered By: Jennifer Casas on 09-04-2024 MCV (RBC) [Entitic vol] 89.6 fL 80-94 [facility] Mean corpuscular hemoglobin (MCH) determinationOrdered By: Jennifer Casas on 09-04-2024 MCH (RBC) [Entitic mass] 28.7 pg 27.0-32.0 [facility] Mean corpuscular hemoglobin concentration (MCHC) determinationOrdered By: Jennifer Casas on 09-04-2024 MCHC (RBC) [Mass/Vol] 32.0 g/dL 32-36 [facility] Mean platelet volume determi nationOrdered By: Jennifer Casas on 09-04-2024 Platelet mean volume (Bld) [Entitic vol] 11.9 fL 6.2-12.0 [facility] Natriuretic peptide.B prohor pascual N-Terminal [Mass/volume] in Serum or PlasmaOrdered By: Jennifer Casas on 09-04-2024 Natriuretic peptide.B prohormone N-Terminal [Mass/Vol] 1927 pg/mL High <1800 [facility] Comment on above: Heart Failure Unlike ly: < 300 pg/mLHeart Failure Likely< 50 Years: > 450 pg/mL50-75 Years: > 900 pg/mL>75 Years: > 1800 pg/mL Platelet countOrdered By: Anthony Casas on 09-04-2024 Platelets (Bld) [#/Vol] 201 10*3/uL 150-450 [facility] Potassium measurement (mass/ volume)Ordered By: Jennifer Casas on 09-04-2024 Potassium (Unsp spec) [Mass/Vol] 4.4 mmol/L 3.3-5.1 [facility] RBC Auto (Bld) [#/Vol]Ordere d By: Jennifer Casas on 09-04-2024 RBC (Bld) [#/Vol] 4.91 10*6/uL 4.6-6.2 [facility] Serum creatinine measurement (mass/volume)Ordered By: Jennifer Casas on 09-04-2024 Creatinine [Mass/Vol] 0.99 mg/dL 0.70-1.20 [facility] Serum globulin measurementOr dered By: Jennifer Casas on 09-04-2024 Globulin (S) [Mass/Vol] 2.7 g/dL 2.2-4.2 [facility] Serum glucose measurement (m ass/volume)Ordered By: Jennifer Casas on 09-04-2024 Glucose [Mass/Vol] 108 mg/dL High 70-99 [facility] Serum or plasma alanine dolan otransferase (ALT) measurementOrdered By: Jennifer Casas on 09-04-2024 ALT [Catalytic activity/Vol] 23 U/L <47 [facility] Serum or plasma albumin yoshi urement (mass/volume)Ordered By: Jennifer Casas on 09-04-2024 Albumin [Mass/Vol] 4.3 g/dL 3.4-4.8 [facility] Serum or plasma albumin/glob ulin mass ratioOrdered By: Jennifer Casas on 09-04-2024 Albumin/Globulin [Mass ratio] 1.6 {ratio} 0.9-2.4 [facility] Serum or plasma alkaline rc sphatase measurementOrdered By: Jennifer Casas on 09-04-2024 ALP [Catalytic activity/Vol] 86 U/L 40-129 [facility] Serum or plasma calcium yoshi urement (mass/volume)Ordered By: Jennifer Casas on 09-04-2024 Calcium [Mass/Vol] 9.7 mg/dL 7.6-11.0 [facility] Serum or plasma urea nitroge n measurement (mass/volume)Ordered By: Jennifer Casas on 09-04-2024 Urea nitrogen [Mass/Vol] 14 mg/dL 4-19 [facility] Sodium levelOrdered By: Carolina Casas on 09-04-2024 Sodium [Moles/Vol] 141 mmol/L 133-145 [facility] Total proteinOrdered By: Lita Casas on 09-04-2024 Protein [Mass/Vol] 7.0 g/dL 5.9-8.4 [facility] White blood cell (WBC) count Ordered By: Jennifer Casas on 09-04-2024 WBC (Bld) [#/Vol] 13.0 10*3/uL High 4.4-11.0 [facility] 36on 09-03-2024 36 Paused at this time Normal [facility] Office Visiton 08-22-2024 Follow-up visit [id number] Marcia Meredith 1935 M Date Provider Department Center 08/22/2024 VANESSA CASANOVA [facility] None Family History Problem Relation Age of Onset Heart failure Mother Heart Surgery Mother Pacemaker Brother Family Status - Relation Status Age at Mother Brother Alive Father Level of Service:49646 [place] OFFICE/OUTPATIENT ESTABLISHED MOD MDM 30 MIN Reason for Visit and Comments: Depression [32] Anxiety [9] Normal [facility] Progress Noteon 08-22-2024 Progress Note [facility] [address] [place] [address] Visit type: Hospital Follow up appointment Reason for Visit: Efraín Meredith is a 88 y.o. male with chief complaint of Depression and Anxiety Assessment and Plan Diagnoses and all orders for this visit: Intracranial hemorrhage (HCC)- s/p hospitalization, improved neurologic symptoms including left upper extremitity. Notes that this is improved. - [facility] [place] [facility] - [address] HFrEF (heart failure with reduced ejection fraction) ([facility])- follows with cardiology. Palliative care encounter- Met with Duy and Lily. He does have HCPOA and living will completed. Discussed his goals of care and performed life review. Discussed code status. He is open to discussing his wishes more openly with Lily. Also notes that he continues to grieve his ability to get older. - [facility] [place] [facility] - [address] No orders of the defined types were placed in this encounter. Subjective Duy is met today is hospital follow up appointment. He notes that he is feeling better. Also notes that he is adjusting to the grief that I'm not a kid anymore. Notes that it is hard for him to be active like he used to. Notes that he sometimes feels worried at night due to changes in his health. Denies nausea, vomitting. Occasional headaches. Also notes difficulty with bright vision due to the sun. Has 1 day last week with some word finding difficulty and headaches. Pain Assessment (If Pain Scale >0) No pain 0 Mccoy Symptom Assessment Score Mccoy Symptom Assessment System Pain Score: 1 Tiredness Score: 1 Nausea Score: 1 Depression Score: 2 Anxiety Score: 2 Drowsiness Score: 1 Appetite Score: 1 Wellbeing Score: 1 Dyspnea Score: 1 Other Problem Score: 1 Assessed by:patient Review of Systems PCP: Devon Stokes Goals of care: Live Longer, extend life as much as possible and Improve or Maintain Function/Quality of Life Code status: Full Code Advance directives: Health Care Proxy, Living Will- have at home Surrogate: HCPOA/ Lily Prognosis: uncertain at this time Spiritual assessment: No spiritual distress identified Bereavement and grief: Grief Issues Not Identified Social history: Marital status: Living status: with spouse 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 Constitutional: Appearance: He is normal weight. HENT: Mouth/Throat: Mouth: Mucous membranes are moist. Eyes: General: No scleral icterus. Extraocular Movements: Extraocular movements intact. Pupils: Pupils are equal, round, and reactive to light. Cardiovascular: Rate and Rhythm: Normal rate and regular rhythm. Pulses: Normal pulses. Pulmonary: Effort: Pulmonary effort is normal. Breath sounds: Normal breath sounds. No wheezing or rales. Abdominal: General: Abdomen is flat. There is no distension. Tenderness: There is no abdominal tenderness. Musculoskeletal: General: Normal range of motion. Right lower leg: No edema. Left lower leg: No edema. Skin: General: Skin is warm. Coloration: Skin is pale. Findings: No rash. Neurological: General: No focal deficit present. Mental Status: He is alert and oriented to person, place, and time. Cranial Nerves: No cranial nerve deficit. Psychiatric: Mood and Affect: Mood normal. ECOG: ECOG : 1 - Restricted in physically strenuous activity but ambulatory and able to carry out work of a light or sedentary nature, e.g., light house work, office work PPS:80 Data Reviewed and Summarized Opiate Risk Assessment Tool SOAPP given yes SOAPP score: <7, low risk Red Flags for Abuse or Diversion: None Identified Results/Verification of Data Review Objective data reviewed: Labs: Lab Results Component Value Date WBC 11.4 (H) 08/01/2024 HGB 14.0 08/01/2024 HCT 42.1 08/01/2024 MCV 86.8 08/01/2024 PLT 215 08/01/2024 Lab Results Component Value Date NA 137 08/01/2024 K 4.0 08/01/2024 CL 108 (H) 08/01/2024 CO2 21 (L) 08/01/2024 BUN 16 08/01/2024 CREATININE 0.92 08/01/2024 GLUCOSE 115 08/01/2024 CALCIUM 9.2 08/01/2024 PROT 7.1 08/01/2024 BILITOT 0.9 08/01/2024 ALKPHOS 74 08/01/2024 AST 20 08/01/2024 ALT 25 08/01/2024 LABGLOM 59 10/26/2021 No results found for: PSA, CEA, CA125, LX7368, CA199 \ [facility] Progress Note What is the most important item you want to discuss with your provider today? Not symptomatic just getting established if need be. Complete med rec line by line. Yes Do you need refills on any medications today? No Pharmacy confirmed in Med management section. Yes [facility] Inital Evaluation (1) - PTon 08-20-2024 Inital Evaluation (1) - PT [facility] [address] [place] [address]. [address] [place] [address] / REHABILITATION SERVICES INITIAL EVALUATION MR#: [id number] Acct: [id number] Name: EFRAÍN MEREDITH Rep #: [id number] : 1935 88 From: Hitesh Dee PT, ATC Referring Dr.: SAMIA Go Status: RE G RCR Insurance: [facility] MEDICARE SELF PAY INSURANCE Patient's Visit Information Visit Information Visit Information: EFRAÍN MEREDITH is a 88 year old M referred to Physical Therapy by SAMIA Go with a diagnosis of L UE weakness. Date of Evaluation: 08/20/24 Physical Therapist: Hitesh Dee, PT, ATC Visit Plan Plan: Skilled therapy is not necessary at this time. Subjective Subjective: Pt reports he had a brain bleed 3 weeks ago. Pt notes the bleed was on the R side of his brain, which has resulted in R UE weakness. Pt notes he has recovered some at this time as his and him have been tossing a ball at home to work on his strength and muscle control. Pt is unable to perform fine motor tasks such as putting butter on a piece of toast. Pt notes he continues to have some tingling in his L UE, especially at the tips of his fingers. Pt reports no sleep difficulty at this time. Pt is able to perform most of his IADL's, but is unable to mow his lawn or drive at this time secondary to L UE weakness. Pt notes he has been dropping a lot of thigs with his L UE secondary to his weakness. Pt is not in any pain at this time. 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 Objective Objective: Neuro: B UE sensation is WNL to light touch. B bicipital reflex= 3/3 ROM: R shoulder flex= 150, abd= 130, ER= 40, IR= WNL; L shoulder flex= 140, abd= 130, ER= 40, IR= WNL MMT: R shoulder flex= 15, abd= 18, ER= 15, IR= 17 #F; L shoulder flex= 15, abd= 18, ER= 15, IR= 15 #F account executive trainee strength: R= 80 #F, L= 65 #F Goals Goal 1:: NA Rehabilitation Potential Physical Therapy Diagnosis: Pt had L UE weakness secondary to hemorrhagic brain bleed Rehabilitation Potential: Excellent Anticipated Interventions Patient/Client Instruction: Educate patient on: Condition and Plan of Care For the Purpose of:: To improve self management Text: Thank you for the opportunity to evaluate your patient. For Medicare and Medicare HMO plans, please review the plan of care and approve it. It will need to be FAXED BACK to us at [phone] for Medicare purposes. For Medicare only, by signing this I certify the plan of care. Please let me know if there are questions or concerns regarding this plan of care. Physician Signature: Date:__ 08/20/24 0949 CC: SAMIA Casas; Dr. Devon Stokes, [facility] Signed Normal [facility] Office Visiton 08-08-2024 Follow-up visit [id number] Marcia Meredith 1935 M Date Provider Department Center 08/08/2024 [address]89[address]-[facility] [address] Family History Problem Relation Age of Onset Heart failure Mother Heart Surgery Mother Pacemaker Brother Family Status - Relation Status Age at Mother Brother Alive Father Level of Service:24017 [place] OFFICE/OUTPATIENT ESTABLISHED MOD MDM 30 MIN Reason for Visit and Comments: Hospital Follow-up [832] - Brain bleed of unknown cause Normal [facility] Progress Noteon 08-08-2024 Progress Note He had an intracrani al hemorrhage of unknown etiology. He has mild speech delay and persistent left arm and hand numbness. Otherwise he looks amazing. He is on Keppra 500 mg twice daily which he will follow up with neurology for. His blood pressure is good but it is soft therefore I have not resumed his losartan. His will continue to monitor his blood pressure and she will call if it starts to rise. I have encouraged him to stay out of his heat and to stay hydrated. [facility] Progress Note He has an ICD in tim ce it is functioning normally and he follows in our device clinic. Normal [facility] Progress Note Stable coronary kathy ry disease no chest pain or shortness of breath. He is now on atorvastatin 20 mg daily and will continue this. He will restart aspirin 81 mg on August 14. Normal [facility] Progress Note [facility] [place] [address] [facility] [address] Dept: [phone] Dept Visit type: Established : 1935 Reason for Visit: Hospital Follow-up (Brain bleed of unknown cause) Assessment and Plan 1. Intracranial hemorrhage (HCC) Assessment & Plan: He had an intracranial hemorrhage of unknown etiology. He has mild speech delay and persistent left arm and hand numbness. Otherwise he looks amazing. He is on Keppra 500 mg twice daily which he will follow up with neurology for. His blood pressure is good but it is soft therefore I have not resumed his losartan. His will continue to monitor his blood pressure and she will call if it starts to rise. I have encouraged him to stay out of his heat and to stay hydrated. Orders: - ECG 12 lead - CLINIC PERFORMED 2. ICD (implantable cardioverter-defibrill ator), single, in situ Assessment & Plan: He has an ICD in place it is functioning normally and he follows in our device clinic. 3. Coronary artery disease involving [place] coronary artery of [place] heart without angina pectoris Assessment & Plan: Stable coronary artery disease no chest pain or shortness of breath. He is now on atorvastatin 20 mg daily and will continue this. He will restart aspirin 81 mg on August 14. Follow up in about 6 months (around 02/07/2025), or with JKS. Subjective Efraín Meredith is a 88 y.o. male known to Dr. Calle with a history of ischemic cardiomyopathy and is status post ICD implantation and the primary prevention of sudden cardiac . On 07/29 he arrived at [facility] after initially presenting to [place] ED after intermittent LUE numbness x 5 days and slurred speech. He was transferred to ICU for further management. His NIH was 4 and he had stat CT head which showed Subarachnoid hemorrhage within the superior right frontal lobe, just anterior to the central sulcus. Stat CTA head neck showed Known area of posterior left frontal lobe subarachnoid hemorrhage. Patient was started on Nicardipine gtt to maintain SBP less than 140. Per Neuro Critical Care his ICH score was 1 and is Ok to start ASA 81 in 14 days (August 14) and needs OP Neurology followup. Spot EEG showed no abnormal slowing, interictal epileptiform or seizures. Cerebral angiogram showed no aneurysms, vascular malformations or dural AV fistulas were identified as a cause for right cortical subarachnoid hemorrhage. There is no significant intracranial dissection, mild multifocal intracranial atherosclerosis. His called 08/03 with concerns that he was off all of his cardiac meds. He presents for follow up Efraín Meredith presents for evaluation with his . He states he is still having a little bit of trouble with his speech and weakness in his left arm and hand but has been working with the therapy ball to try and strengthen it. 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 He denies chest pain, palpitations, dizziness, syncope, near syncope or shortness of breath. He is back on carvedilol and Aldactone and his blood pressure is good today. His has been checking it daily and it systolic has been around 115-120. Review of Systems Constitutional: Positive for fatigue. Negative for chills, diaphoresis and fever. HENT: Negative for nosebleeds. Eyes: Negative for visual disturbance. Respiratory: Negative for chest tightness, shortness of breath and wheezing. Cardiovascular: Negative for chest pain, palpitations and leg swelling. Gastrointestinal: Negative for abdominal pain, blood in stool and diarrhea. Genitourinary: Negative for hematuria. Musculoskeletal: Negative for myalgias. Neurological: Negative for dizziness and syncope. Mild speech delay and left arm numbness Hematological: Does not bruise/bleed easily. Allergies[1] Current Medications[2] Medical History[3] Social History Tobacco Use Smoking status: Never Smokeless tobacco: Never Substance Use Topics Alcohol use: Yes Comment: occasional/wine or beer Surgical History[4] Family History[5] Objective Vitals: 08/08/24 1436 BP: 100/62 BP Location: Right arm Patient Position: Sitting BP Cuff Size: Large adult Pulse: 65 SpO2: 95% Weight: 145 lb (65.8 kg) Height: 5' 6 (1.676 m) Physical Exam Constitutional: General: He is not in acute distress. Appearance: He is not diaphoretic. HENT: Head: Normocephalic. Nose: Nose normal. Mouth/Throat: Mouth: Mucous membranes are moist. Pharynx: No oropharyngeal exudate. Eyes: General: No scleral icterus. Right eye: No discharge. Left eye: No discharge. Neck: Thyroid: No thyromegaly. Vascular: No carotid bruit or JVD. Cardiovascular: Rate and Rhythm: Normal rate and regular rhythm. Pulses: Normal pulses. Heart sounds: Normal heart sounds. Pulmonary: Effort: Pulmonary effort is normal. Breath sounds: Normal breath sounds. Abdominal: General: Bowel sofia (more content not included)... [facility] Internal Medicine Office Vis iton 08-07-2024 Internal Medicine Office Visit [facility] [address] [place] [address] [place] [address] OFFICE VISIT Date of Service: 08/07/24 MR#: [id number] Acct: [id number] Name: EFRAÍN MEREDITH Rep #: [id number] : 1935 Provider: SAMIA gonzalez Age/Sex: 88/M Location: [facility] Status: Signed Intake Vital Signs 07/29/24 12:46 08/07/24 09:08 Height 5 ft 6 in 5 ft 6 in Weight: 143 lb BMI 23.1 BP 108/70 Blood Pressure Location Lt brachial Position Sitting Respiration 16 Pulse 62 Pulse Source Monitor Temp 98.6 F Temp Source Temporal Pulse Oximetry (%) 98 Oxygen Delivery Method room air Intake Visit Reasons: HOSP FOLLOW UP Financial Services Agent Required: No Is patient in pain?: No Allergies No Known Allergies Allergy (Verified 08/07/24 09:01) Medications ???Medication ???Instructions ???Recorded ???Confirmed ???Type aspirin 81 mg chewable tablet 81 mg PO DAILY 09/11/15 07/29/24 H istory nitroglycerin 0.4 mg sublingual 0.4 mg sublingual Q5M PRN Chest 07/29/24 History tablet Pain simvastatin 40 mg tablet 40 mg PO QHS 09/11/15 07/29/24 His tory spironolactone 25 mg tablet 12.5 mg PO DAILY 09/11/15 08/07/24 History losartan 50 mg tablet 50 mg PO DAILY 08/25/22 07/29/24 H istory carvedilol 6.25 mg tablet 6.25 mg PO BID 01/19/24 08/07/24 H istory finasteride 5 mg tablet 5 mg PO DAILY 01/19/24 07/29/24 Hi story tamsulosin 0.4 mg capsule (Flomax) 0.4 mg PO DAILY 01/19/24 5 History Have you fallen in the past year?: No Nurse's Note: Pt is currently only taking carvedilol and aldactone, as advised by [facility] neurology, and cardiology. Will restart asa on 08/15/24 Pt was told until he was seen by pcp to restart other medications. 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 Pt noticed a spot on top of head, in February he thought it was a scar from previously hitting his head, he denies itching,discharge,aki ting,bleeding,pain , change in color, shape or itching. He states it has gotten bigger since he first noticed it. He states it does not bother him so he does not try to treat it w/ anything. [facility] Medical History Loss of hearing Wears glasses Wears dentures Alcohol use High cholesterol Easy bruising Dietary restriction Non-smoker Hypertension History of stress test Cardiology follow-up encounter History of CHF (congestive heart failure) History of heart attack TIA (transient ischemic attack) Hx of fracture of hip Cardiac defibrillator in place Surgical History History of coronary artery stent placement History of cystoscopy Hx of right cataract extraction Hx of left cataract extraction Family History Mother CAD (coronary artery disease) Grandfather CAD (coronary artery disease) Brother Prostate cancer Sister Colon cancer Sister Throat cancer Social History adopted: No household members: spouse [...] feel safe at home: Yes HPI HPI Details: EFRAÍN MEREDITH, is a 88 M who presents to the office today for hospital discharge follow-up. Patient was hospitalized at [facility] through 08/01/2024. Patient was diagnosed with a subarachnoid hemorrhage.Patient originally presented to [facility] with complaints of left arm numbness. States left hand numbness intermittent for approximately 5 days upon arrival at ED prior to numbness the day before patient's states he jumped off of a tractor after jumping off the tractor he does state he did not feel well thought that he may have he also had some slurred speech at times. In the emergency department a brain CT was completed along with a head and neck CTA which showed hemorrhagic infarct in the right parietal lobe patient was then transported to [facility] where he was treated by neurology. Patient states that today his symptoms are improving notices fatigue a little easier denies any lightheadedness or dizziness able to move his left arm today but states intermittently still having some difficulty with left arm movement. Patient also concerned about a lesion on the top of his head which is new (more content not included)... Normal [facility] 08-06-2024 36 Sorry, I read new [facility] ib clinic pt. I will make sure it is changed. Normal [facility] 08-03-2024 36 Pt's called because she didn't understand Lydia's message. I did reschedule pt to come in for one hour with LO on 08/08/24. Normal [facility] 36 Spoke to BP 133/72, HR 97 and pulse ox 96%. Follows with Dr calle. They live in [place] and agreeable to come in Tuesday. has an opening at 1:30 08/07/24 Advise to start Coreg and aldactone tomorrow. Reassess at OV concerning other medications. She will monitor BP until follow up appt. Please Schedule him an OV at 1:30 08/07/24. aware and said you would call if an issue with the time offered. Normal [facility] 36 Lily (pts ) called with BP readin/72 Please return her call. Normal [facility] 36 PC offer appt at 1:3 0. She bought a BP cuff, but is a blue tooth and currently being charged. She wants to have a nurse neighbor check BP. She will call back with a reading. Normal [facility] 36 PC spoke to he is not on metoprolol He is on Coreg, aldactone and losartan. He had no cardiac complaints today. Reviewed BP at discharge stable 123/75 and 120/68 08/01/24. Normal [facility] 36 Pts Lily called. was admitted for brain bleed and released on Tuesday. She is concerned about all of the meds that were paused that are for his heart. Paused meds include: aspirin, carvedilol, losartan, metroprolol, spironolactone New meds included: aporvastatin, levetiracetam Please call her. She is very concerned. [phone] TEOFILO; 06/04/24 NOV: none scheduled [facility] [id number] [phone] [facility] Palliative Care Transitions of Care Note Efraín Meredith : 1935 ADMIT DATE: 07/29/2024 DISCHARGE DATE: 08/01/2024 PRIMARY CARE PHYSICIAN: Devon Stokes CODE STATUS: Prior DISCHARGE DIAGNOSES: Principal Problem: Intracranial hemorrhage (HCC) HOSPITAL COURSE: Efraín Meredith is a 88 y.o. male who presented to the ED with 5 days of intermittent LUE numbness. H/o HTN, HLD, [place] s/p stenting, TIA, HFrEF s/p ICD (last available EF 25%), BPH. 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 also reported slurred speech, so had him come in for evaluation at OSH. VSS but imaging showing intraparenchymal hemorrhage without midline shift. Was then transferred to [facility] for neurocritical care. Arrived here 07/29 in the afternoon, exam notable for NIH 4 (drift, ataxia of LUE, dysarthria, LUQ visual deficit. Imaging was repeated as outside imaging unavailable. denies inciting fall, but both she and pt state he was hopping out of his tractor and had a hard landing on his feet in the days prior to admission. Palliative consulted for GOC clarification. Following admission, he regained a significant amount of function/symptoms largely improved and was seen ambulating the hallways of the ICU regularly with supervision. PT/OT evaluated and was able to discharge home without further needs. His LUE tingling did wax/wane, and despite an otherwise negative evaluation he was thus started on AEDs. SIGNIFICANT DIAGNOSTIC STUDIES: 08/01 Cerebral angiography: No aneurysms, vascular malformations or intracranial dissection was identified as a cause for the subarachnoid hemorrhage. There is mild multifocal intracranial atherosclerosis. In the correct clinical setting and age group, a vasculopathy like mild RCVS would not be angiographically distinguishable from multifocal intracranial atherosclerosis. 07/30 MR brain w wo: 1. Negative for dural venous sinus thrombosis. 2. Stable subarachnoid hemorrhage along the right central sulcus. No other acute intracranial abnormalities. 3. 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 07/30 MRV head w wo: 1. Negative for dural venous sinus thrombosis. 2. Stable subarachnoid hemorrhage along the right central sulcus. No other acute intracranial abnormalities. 3. 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 07/29 CTH noncon: Subarachnoid hemorrhage within the superior right frontal lobe, just anterior to the central sulcus CODE STATUS DISCUSSIONS: Deferred SYMPTOM MANAGEMENT MEDICATIONS: N/A RECOMMENDED NEXT STEPS: Follow-up with outpatient palliative care given advanced age, HFrEF for further GOC discussions FOLLOW UP TESTING, PENDING RESULTS OR REFERRALS AT TRANSITIONAL CARE VISIT: No PENDING STUDIES: No DISPOSITION: Home Caregiver is willing and able to provide care in the home environment FACILITY/HOME CARE AGENCY NAME: N/A Follow up with [address] [place] [address] Palliative Care Clinic on office to call patient. If appointment not scheduled, patient should be scheduled within 3 months. Reason for Outpatient/Home/ECF Palliative Care follow-up: No symptom management needs, Continue goals of care discussion, Follow-up on completion of advance directives, and Follow-up from other specialist visit (i.e. oncology, transplant team, etc) SIGNED: Zhou Delong, 08/02/2024, 10:03 AM Normal [facility] [phone] Spoke with PCP geneva rivera and follow up appointment scheduled. What's Next What's Next Follow up with Devon Stokes Tuesday Follow up from hospital stay at 09:00 AM with Jennifer [address]OSTEGUI [address] [place] [id number] [facility] [phone] Called PCP office a second time to schedule follow up. Had to leave message, awaiting callback. Normal [facility] BASIC METABOLIC PANELon 06- Anion gap [Moles/Vol] 8 mmol/L Normal 3-13 [facility] Comment on above: Performed By: #### L [id number] #### Milling Machine Operator Gear: MARY MOLINA ([id number]) [facility] ([facility]) [address] [place] [address] Calcium [Mass/Vol] 9.2 mg/dL Normal 8.8-10.0 [facility] Comment on above: Performed By: #### L [id number] #### Milling Machine Operator Gear: MARY MOLINA ([id number]) [facility] ([facility]) [address] [place] [address] [place] Chloride [Moles/Vol] 108 mmol/L High 98-107 [facility] Comment on above: Performed By: #### L [id number] #### Milling Machine Operator Gear: MARY MOLINA ([id number]) [facility] ([facility]) [address] [place] [address] [place] CO2 [Moles/Vol] 21 mmol/L Low 23-31 [facility] Comment on above: Performed By: #### L [id number] #### Milling Machine Operator Gear: MARY MOLINA ([id number]) [facility] ([facility]) [address] [place] [address] Creatinine [Mass/Vol] 0.92 mg/dL Normal 0.72-1.25 [facility] Comment on above: Performed By: #### L [id number] #### Milling Machine Operator Gear: MARY MOLINA ([id number]) [facility] [address] [place] [address] GLOMERULAR FILTRATION RATE ML/MIN/1.73 SQ M.PREDICTED 80.0 mL/min/1.73m*2 Normal >60.0 [facility] Comment on above: Result Comment: Calc ulation based on the Chronic Kidney Disease Epidemiology Collaboration (CKD-EPI) equation refit without adjustment for race Performed By: #### L [id number] #### Milling Machine Operator Gear: MARY MOLINA ([id number]) [facility] ([facility]) [address] [place] [address] Glucose [Mass/Vol] 115 mg/dL Normal 82-115 [facility] Comment on above: Performed By: #### L [id number] #### Milling Machine Operator Gear: MARY MOLINA ([id number]) [facility]) [address] [place] [address] Potassium [Moles/Vol] 4.0 mmol/L Normal 3.5-5.1 [facility] Comment on above: Result Comment: [facility] potassium values may be up to 0.5 mmol/L lower than serum values. Performed By: #### L [id number] #### Milling Machine Operator Gear: MARY MOLINA ([id number]) [facility] ([facility]) [address] [place] [address] Sodium [Moles/Vol] 137 mmol/L Normal 136-145 [facility] Comment on above: Performed By: #### L [id number] #### Milling Machine Operator Gear: MARY MOLINA ([id number]) [facility] ([facility]) [address] [place] [address] Urea nitrogen [Mass/Vol] 16 mg/dL Normal 9-23 [facility] Comment on above: Performed By: #### L [id number] #### Milling Machine Operator Gear: MARY MOLINA ([id number]) [facility]) [address] [place] [address] Basic metabolic 1998 panelon 08-01-2024 Anion gap [Moles/Vol] 8 mmol/L 3 - 13 mmol/L [facility] Calcium [Mass/Vol] 9.2 mg/dL 8.8 - 10. 0 mg/dL [facility] [employer] Chloride [Moles/Vol] 108 mmol/L High 98 - 10 7 mmol/L [facility] [employer] CO2 [Moles/Vol] 21 mmol/L Low 23 - 31 mmol/L [facility] [employer] Creatinine [Mass/Vol] 0.92 mg/dL 0.72 - 1.25 mg/dL [facility] [employer] GFR/1.73 sq M.predicted (S/P/Bld) [Vol rate/Area] 80 mL/min - PINF [facility] [employer] Comment on above: Calculation based on the Chronic Kidney Disease Epidemiology Collaboration (CKD-EPI) equation refit without adjustment for race Glucose [Mass/Vol] 115 mg/dL 82 - 115 mg/dL [facility] Interpretation and review of laboratory results Abnormal [facility] [employer] Potassium [Moles/Vol] 4 mmol/L 3.5 - 5.1 mmol/L [facility] [employer] Comment on above: Plasma potassium deb ues may be up to 0.5 mmol/L lower than serum values. Sodium [Moles/Vol] 137 mmol/L 136 - 145 mmol/L [facility] [employer] Urea nitrogen [Mass/Vol] 16 mg/dL 9 - 23 mg/dL [facility] [employer] CALCIUM, IONIZEDon CALCIUM IONIZED 4.50 mg/dL Normal 4.30-5.20 [facility] Comment on above: Performed By: #### L [id number] #### Milling Machine Operator Gear: MARY MOLINA ([id number]) [facility] ([facility]) [address] [place] [address] PH, IONIZED CALCIUM 7.47 High 7.31-7.46 [facility] Comment on above: Performed By: #### L [id number] #### Milling Machine Operator Gear: MARY MOLINA ([id number]) [facility] ([facility]) [address] [place] [address] CBC W Auto Differential pane l (Bld)on 08-01-2024 Basophils (Bld) [#/Vol] 0.1 10*3/uL 0.0 - 0.2 10*3/uL [facility] Basophils/100 WBC (Bld) 0.5 % 0.0 - 2.0 % [facility] Eosinophils (Bld) [#/Vol] 0.2 10*3/uL 0.0 - 0.5 10*3/uL [facility] Eosinophils/100 WBC (Bld) 1.9 % 0.0 - 6.0 % [facility] Erythrocyte distribution width (RBC) [Ratio] 13.3 % 11.5 - 15.0 % [facility] Hematocrit (Bld) [Volume fraction] 42.1 % 40.0 - 52.0 % [facility] Hemoglobin (Bld) [Mass/Vol] 14 g/dL 13.0 - 18.0 g/dL [facility] Immature granulocytes (Bld) [#/Vol] 0.1 10*3/uL High NINF - 0.1 10*3/uL [facility] Immature granulocytes/100 WBC (Bld) 0.5 % 0.0 - 2.0 % [facility] Interpretation and review of laboratory results Abnormal [facility] Lymphocytes (Bld) [#/Vol] 4.6 10*3/uL High 1.0 - 4.3 10*3/uL [facility] Lymphocytes/100 WBC (Bld) 40.7 % 15.0 - 45.0 % [facility] MCH (RBC) [Entitic mass] 28.9 pg 26.0 - 34.0 pg [facility] MCHC (RBC) [Mass/Vol] 33.3 % 30.5 - 36.0 % [facility] MCV (RBC) [Entitic vol] 86.8 fL 77.0 - 99.0 fL [facility] Monocytes (Bld) [#/Vol] 0.8 10*3/uL 0.0 - 0.9 10*3/uL [facility] Monocytes/100 WBC (Bld) 6.9 % 5.0 - 13.0 % [facility] Neutrophils (Bld) [#/Vol] 5.6 10*3/uL 1.8 - 7.5 10*3/uL [facility] Neutrophils/100 WBC (Bld) 49.5 % 38.0 - 82.0 % [facility] Nucleated RBC/100 WBC (Bld) [Ratio] 0 % [facility] Platelet mean volume (Bld) [Entitic vol] 11 fL 9.0 - 12.7 fL [facility] Platelets (Bld) [#/Vol] 215 10*3/uL 140 - 440 10*3/uL [facility] RBC (Bld) [#/Vol] 4.85 10*6/uL 4.40 - 5.9 0 10*6/uL [facility] WBC (Bld) [#/Vol] 11.4 10*3/uL High 3.6 - 10.7 10*3/uL [facility] CBC WITH AUTO DIFFERENTIALon 08-01-2024 Basophils (Bld) [#/Vol] 0.1 10*3/uL Normal 0.0-0.2 [facility] Comment on above: Performed By: #### L [id number] #### Milling Machine Operator Gear: MARY MOLINA ([id number]) [facility] ([facility]) [address] [place] [address] Basophils/100 WBC (Bld) 0.5 % Normal 0.0-2.0 [facility] Comment on above: Performed By: #### L [id number] #### Milling Machine Operator Gear: MARY MOLINA ([id number]) [facility] ([facility]) [address] [place] [address] Eosinophils (Bld) [#/Vol] 0.2 10*3/uL Normal 0.0-0.5 [facility] Comment on above: Performed By: #### L [id number] #### Milling Machine Operator Gear: MARY MOLINA ([id number]) [facility] ([facility]) [address] [place] [address] Eosinophils/100 WBC (Bld) 1.9 % Normal 0.0-6.0 [facility] Comment on above: Performed By: #### L [id number] #### Milling Machine Operator Gear: MARY MOLINA ([id number]) [facility] ([facility]) [address] [place] [address] Erythrocyte distribution width (RBC) [Ratio] 13.3 % Normal 11.5-15.0 [facility] Comment on above: Performed By: #### L [id number] #### Milling Machine Operator Gear: MARY MOLINA ([id number]) [facility] ([facility]) [address] [place] [address] Hematocrit (Bld) [Volume fraction] 42.1 % Normal 40.0-52.0 [facility] Comment on above: Performed By: #### L [id number] #### Milling Machine Operator Gear: MARY MOLINA ([id number]) [facility]) [address] [place] [address] Hemoglobin (Bld) [Mass/Vol] 14.0 g/dL Normal 13.0-18.0 [facility] Comment on above: Performed By: #### L [id number] #### Milling Machine Operator Gear: MARY MOLINA ([id number]) [facility] ([facility]) [address] [place] [address] IMMATURE GRANS % 0.5 % Normal 0.0-2.0 [facility] Comment on above: Performed By: #### L [id number] #### Milling Machine Operator Gear: MARY MOLINA ([id number]) [facility] ([facility]) [address] [place] [address] IMMATURE GRANS ABSOLUTE 0.1 10*3/uL High <0.1 [facility] Comment on above: Performed By: #### L [id number] #### Milling Machine Operator Gear: MARY MOLINA ([id number]) [facility] ([facility]) [address] [place] [address] Lymphocytes (Bld) [#/Vol] 4.6 10*3/uL High 1.0-4.3 [facility] Comment on above: Performed By: #### L [id number] #### Milling Machine Operator Gear: MARY MOLINA ([id number]) [facility] ([facility]) [address] [place] [address] Lymphocytes/100 WBC (Bld) 40.7 % Normal 15.0-45.0 [facility] Comment on above: Performed By: #### L [id number] #### Milling Machine Operator Gear: MARY MOLINA ([id number]) [facility]) [address] [place] [address] MCH (RBC) [Entitic mass] 28.9 pg Normal 26.0-34.0 [facility] Comment on above: Performed By: #### L [id number] #### Milling Machine Operator Gear: MARY MOLINA ([id number]) [facility]) [address] [place] [address] MCHC 33.3 % Normal 30.5-36.0 [facility] Comment on above: Performed By: #### L [id number] #### Milling Machine Operator Gear: MARY MOLINA ([id number]) [facility] ([facility]) [address] [place] [address] MCV (RBC) [Entitic vol] 86.8 fL Normal 77.0-99.0 [facility] Comment on above: Performed By: #### L [id number] #### Milling Machine Operator Gear: MARY MOLINA ([id number]) [facility]) [address] [place] [address] Monocytes (Bld) [#/Vol] 0.8 10*3/uL Normal 0.0-0.9 [facility] Comment on above: Performed By: #### L [id number] #### Milling Machine Operator Gear: MARY MOLINA ([id number]) [facility] ([facility]) [address] [place] [address] Monocytes/100 WBC (Bld) 6.9 % Normal 5.0-13.0 [facility] Comment on above: Performed By: #### L [id number] #### Milling Machine Operator Gear: MARY MOLINA ([id number]) [facility]) [address] [place] [address] NEUTROPHILS ABSOLUTE 5.6 10*3/uL Normal 1.8-7.5 [facility] Comment on above: Performed By: #### L [id number] #### Milling Machine Operator Gear: MARY MOLINA ([id number]) [facility]) [address] [place] [address] Neutrophils/100 WBC (Bld) 49.5 % Normal 38.0-82.0 [facility] Comment on above: Performed By: #### L [id number] #### Milling Machine Operator Gear: MARY MOLINA ([id number]) [facility] ([facility]) [address] [place] [address] NRBC 0.0 /100 WBCs Normal 0.0-2.0 [facility] Comment on above: Performed By: #### L [id number] #### Milling Machine Operator Gear: MARY MOLINA ([id number]) [facility] ([facility]) [address] [place] [address] Platelet mean volume (Bld) [Entitic vol] 11.0 fL Normal 9.0-12.7 [facility] Comment on above: Performed By: #### L [id number] #### Milling Machine Operator Gear: MARY MOLINA ([id number]) [facility] ([facility]) [address] [place] [address] Platelets (Bld) [#/Vol] 215 10*3/uL Normal 140-440 [facility] Comment on above: Performed By: #### L [id number] #### Milling Machine Operator Gear: MARY MOLINA ([id number]) [facility] ([facility]) [address] [place] [address] RBC (Bld) [#/Vol] 4.85 10*6/uL Normal 4.40-5.90 [facility] Comment on above: Performed By: #### L [id number] #### Milling Machine Operator Gear: MARY MOLINA ([id number]) [facility] ([facility]) [address] [place] [address] WBC (Bld) [#/Vol] 11.4 10*3/uL High 3.6-10.7 [facility] Comment on above: Performed By: #### L [id number] #### Milling Machine Operator Gear: MARY MOLINA ([id number]) [facility]) [address] [place] [address] Calcium.ionized [Moles/Vol]o n 08-01-2024 Calcium.ionized (Bld) [Moles/Vol] 4.5 mg/dL 4.30 - 5.20 mg/dL [facility] Interpretation and review of laboratory results Abnormal [facility] PH, IONIZED CALCIUM 7.47 High 7.31 - 7.46 [facility] HEPATIC FUNCTION PANELon Albumin [Mass/Vol] 3.8 g/dL Normal 3.4-4.8 [facility] Comment on above: Performed By: #### L [id number] #### Milling Machine Operator Gear: MARY MOLINA ([id number]) [facility] ([facility]) [address] [place] [address] ALP [Catalytic activity/Vol] 74 U/L Normal 40-150 [facility] Comment on above: Performed By: #### L [id number] #### Milling Machine Operator Gear: MARY MOLINA ([id number]) [facility] ([facility]) [address] [place] [address] ALT [Catalytic activity/Vol] 25 U/L Normal <40 [facility] Comment on above: Performed By: #### L [id number] #### Milling Machine Operator Gear: MARY MOLINA ([id number]) [facility] ([facility]) [address] [place] [address] AST [Catalytic activity/Vol] 20 U/L Normal <34 [facility] Comment on above: Performed By: #### L [id number] #### Milling Machine Operator Gear: MARY MOLINA ([id number]) [facility] ([facility]) [address] [place] [address] [place] Bilirubin [Mass/Vol] 0.9 mg/dL Normal <1.2 [facility] Comment on above: Performed By: #### L [id number] #### Milling Machine Operator Gear: MARY MOLINA ([id number]) [facility] ([facility]) [address] [place] [address] [place] Bilirubin.indirect [Mass/Vol] 0.3 mg/dL Normal <0.5 [facility] Comment on above: Performed By: #### L [id number] #### Milling Machine Operator Gear: MARY MOLINA ([id number]) [facility] ([facility]) [address] [place] [address] [place] Protein [Mass/Vol] 7.1 g/dL Normal 6.4-8.3 [facility] Comment on above: Result Comment: Seru m protein values are higher than plasma values. Samples from recumbent persons are lower by up to 0.5 g/dL as compared to ambulatory persons. After 60 years values are lower by up to 0.2 g/dL. Performed By: #### L [id number] #### Milling Machine Operator Gear: MARY MOLINA ([id number]) [facility] ([facility]) [address] [place] [address] Hepatic function 2000 panelo n 08-01-2024 Albumin [Mass/Vol] 3.8 g/dL 3.4 - 4.8 g/dL [facility] ALP [Catalytic activity/Vol] 74 U/L 40 - 150 U/L [facility] ALT [Catalytic activity/Vol] 25 U/L [facility] - 40 U/L [facility] AST [Catalytic activity/Vol] 20 U/L [facility] - 34 U/L [facility] Bilirubin [Mass/Vol] 0.9 mg/dL [facility] - 1.2 mg/dL [facility] Bilirubin.conjugated [Mass/Vol] 0.3 mg/dL [facility] - 0.5 mg/dL [facility] Protein [Mass/Vol] 7.1 g/dL 6.4 - 8.3 g/dL [facility] Comment on above: Serum protein values are higher than plasma values. Samples from recumbent persons are lower by up to 0.5 g/dL as compared to ambulatory persons. After 60 years values are lower by up to 0.2 g/dL. Laboratory - Chemistry and C hemistry - challengeon 08-01-2024 Magnesium [Mass/Vol] 2 mg/dL 1.6 - 2 .6 mg/dL [facility] Laboratory - Coagulationon 0 08-01-2024 aPTT Coag (PPP) [Time] 24.4 s 20.0 - 30.5 s [facility] INR Coag (PPP) [Relative time] 1 {INR} 0.9 - 1.1 [facility] Comment on above: Recommended Anticoag ulant Therapy: SEE BELOW ----- INR of 2.0 - 3.0 : - Prophylaxis of Venous Thrombosis (high-risk surgery) - Treatment of Venous Thrombosis - Treatment of Pulmonary Embolism (Includes tissue heart valves, Acute Myocardial Infarction to prevent systemic embolism, Valvular Heart Disease, and Atrial Fibrillation) ----- INR of 2.5 - 3.5 : - Mechanical Prosthetic Valves (high risk) - If oral anticoagulant therapy is used to prevent Myocardial Infarction PT Coag (Bld) [Time] 11.1 s 9.0 - 12.0 s [facility] MAGNESIUMon 08-01-2024 Magnesium [Mass/Vol] 2.0 mg/dL Normal 1.6-2.6 [facility] Comment on above: Result Comment: LEONOR Polanco COMMENTS: Higher values can be expected in females during menses. Performed By: #### L [id number] #### Milling Machine Operator Gear: MARY MOLINA ([id number]) [facility] ([facility]) [address] [place] [address] Magnesium [Mass/Vol]on 08-01 Higher values can be expected in females during menses. [facility] No Panel Informationon 08-01 Interpretation and review of laboratory results Normal [facility] Interpretation and review of laboratory results Normal [facility] Nursing Noteon 08-01-2024 Nursing Note Hemostasis achieved. Normal [facility] Nursing Note Wound Care consulted for Pressure Injury Prevention. Pt's Olegario= 22, pt is no longer at risk at this time. PT consult in place. Will continue to follow peripherally. Please vocera or secure chat message with any questions. Kim Ferrera RN, CWCN Normal [facility] Op Noteon 08-01-2024 Op Note Date: 08/01/2024 Location: [facility] Log Name: Duy Meredith, : 1935, Diagnostic cerebral angiogram with 3D reconstruction angiography Moderate procedural sedation for 60 minutes Juan Altman MD No aneurysms, vascular malformations or intracranial dissection was identified as a cause for the subarachnoid hemorrhage. There is mild multifocal intracranial atherosclerosis. In the correct clinical setting and age group, a vasculopathy like mild RCVS would not be angiographically distinguishable from multifocal intracranial atherosclerosis. Complications: None EBL: 20 ml Groin closure was with manual compression and good hemostasis was achieved. 5 Latvian Mynx vascular closure device was attempted first but failed to deploy. Recommendations Post angio orders placed. Follow-up in 8 weeks Normal [facility] PHOSPHORUSon 08-01-2024 Phosphate [Mass/Vol] 3.1 mg/dL Normal 2.3-4.7 [facility] Comment on above: Performed By: #### Long [id number] #### Milling Machine Operator Gear: MARY MOLINA ([id number]) [facility]) [address] [place] [address] PROTIME AND APTTon aPTT Coag (Bld) [Time] 24.4 s Normal 20.0-30.5 [facility] Comment on above: Performed By: #### L AB20, LAB15, [id number], [id number] #### Milling Machine Operator Gear: MARY MOLINA ([id number]) [facility]) [address] [place] [address] INR Coag (PPP) [Relative time] 1.0 {INR} Normal 0.9-1.1 [facility] Comment on above: Result Comment: Bryon mmended Anticoagulant Therapy: SEE BELOW ----- INR of 2.0 - 3.0 : - Prophylaxis of Venous Thrombosis (high-risk surgery) - Treatment of Venous Thrombosis - Treatment of Pulmonary Embolism (Includes tissue heart valves, Acute Myocardial Infarction to prevent systemic embolism, Valvular Heart Disease, and Atrial Fibrillation) ----- INR of 2.5 - 3.5 : - Mechanical Prosthetic Valves (high risk) - If oral anticoagulant therapy is used to prevent Myocardial Infarction Performed By: #### L AB20, LAB15, [id number], [id number] #### Milling Machine Operator Gear: MARY MOLINA ([id number]) [facility] ([facility]) [address] [place] [address] PT Coag (PPP) [Time] 11.1 s Normal 9.0-12.0 [facility] Comment on above: Performed By: #### L AB20, LAB15, [id number], [id number] #### Milling Machine Operator Gear: MARY MOLINA ([id number]) [facility]) [address] [place] [address] Phosphate [Moles/Vol]on 07-15 Phosphate [Mass/Vol] 3.1 mg/dL 2.3 - 4 .7 mg/dL [facility] [employer] Progress Noteon 08-01-2024 Progress Note -- Attestation signed by Donnie Monroe MD at 08/01/2024 3:01 PM I have personally performed a face to face diagnostic evaluation on this patient today on 08/01/24. Labs, imaging studies, and electronic medical record notes on [employer] have been reviewed by me. This note documented and discussed by the [x]project control officer []Fellow [] PALLAVI reflects my history, exam and medical decision making. I have reviewed and agree with the care plan. Changes were made in the orders as necessary. ROS documentation was reviewed and negative unless otherwise stated in the HPI. My history, exam, assessment and plan are as follows: All reflect current medical decision making from 08/01/24. Physical Exam listed was completed in entirely on 08/01/24 and is unchanged except where noted. Time spent for coordination of care: a subsequent visit: 50 minutes (Level III) Awake, alert, speech clear, moves all ext C/o left arm numbness, motor strength symmetric to all ext Heart RRR, resp unlabored Right SAH, Left sided numbness HTN, HFrEF 27% Following alongside neuroCC Plan cerebral angiogram today ICU Progress Note Name: Efraín Meredith : 1935(88 y.o.) Date: 08/01/24 Team: MICU Attending: Dr. Morton Subjective: Hospital Summary: 88 year-old with a PMHx of CAD, ICD, prior OH, hyperlipidemia, hypertension who presented to [facility] with several days of left arm and hand numbness along with slurred speech. Imaging demonstrated small right SAH. Interval Events: No acute overnight events. Upon evaluation, patient stated that he is feeling well and inquired when he might be able to leave the ICU. Denies known trauma, states that he often hits his head around the house. Seen and examined bedside. Awake, alert, oriented, ambulating without any dizziness, ataxia. No complaints, concerns or questions. Scheduled Meds:Scheduled Meds[1] Continuous Infusions:Continuous Meds[2] Objective: Last Vitals: BP MAP 119/99 (08/01/24 1200) 107 (08/01/24 1200) Arterial BP MAP Temp 36.3 ?C (97.3 ?F) (08/01/24 0400) Pulse 72 (08/01/24 1200) Resp 13 (08/01/24 1200) SpO2 99 % (08/01/24 1200) Weight 66.3 kg (146 lb 2.6 oz) (07/31/24 0546) BMI Body mass index is 23.59 kg/m?. I/O: 07/31 0700 - 08/01 0659 In: - Out: 250 [Urine:250] Oxygen Delivery: O2 Flow Rate (L/min): 2 L/min Invasive Lines / Tubes / Drains: Peripheral IV 07/29/24 Right Antecubital (Active) Number of days: 2 Peripheral IV 07/30/24 Left;Posterior Hand (Active) Number of days: 1 Central Line Indication: NA - patient does not have a central line Agarwal Indications: NA - patient does not have a Agarwal catheter Restraints: NA - patient is not restrained. Wounds: Constitutional: General Appearance [x]WDWN []Obese []Cachectic []Thin []Ill Eyes: Inspection of Pupils/Irises Pupils round and react: [x]Yes []No Sclera: []Icteric [x]Non-Icteric Inspection of Conjunctiva/Lids Conjunctiva: []Injected [x]Non-Injected Lids: [x]Intact []Lesion Present ENT/Mouth: External Inspection of ears/nose [x] Normal [] Scar/Lesion/Mass Inspection of teeth/lips/gums Dentition: [x][place] Teeth []Dentures Lips/Gums: []Intact []Lesion Present Mucosa: [][place] []Moist []Dry Neck: External Appearance Overall Appearance: [x]Normal []Lesion/Mass/Crepitus Present Trachea midline: [x]Yes []No Thyroid [x]Normal []Enlarged []Tender []Mass []Absent Respiratory: Respiratory effort []Labored [x]Non-Labored [] Mechanically-Ventilate d Auscultation [x]Clear []Crackles []Wheezes [][place] Cardiovascular: Auscultation Rate: [x]Regular []Irregular []Tachycardia []Bradycardia Rhythm: [x]Regular []Irregular Murmur: []Present [x]Absent Extremities Peripheral Edema: []Present [x]Absent Varicosities: []Present [x]Absent Gastrointestinal: Abdomen Palpation: [x]Soft []Firm []Tender []Non-Tender []Distended [x]Non-distended Mass: []Present [x]Absent Bowel Sounds: [x]Present []Absent Hernia: []Present []Absent Liver/Spleen: []Hepatosplenomegaly []Organomegaly Absent Musculoskeletal: Inspection of Digits and Nails Cyanosis: []Present [x]Absent Clubbing: []Present [x]Absent Ischemia: []Present [x]Absent Infection: []Present [x]Absent Extremities ORTEZ Equally: Except ([]RUE []RLE []LUE []LLE) Strength/Tone: Intact and Normal ([]RUE []RLE []LUE []LLE) Skin: Inspection [x]Normal []Rash []Lesion []Ulcer Palpation [x]Warm []Cool []Dry []Clammy []Nodules []Induration []Skin-tightening Cap-Refill: [x] <3 sec [] >3 seconds (delayed) Neurologic: GCS EYE: 4 - Opens spontaneously GCS MOTOR: 6 - Obeys commands for movement GCS VERBAL: 5 - Oriented to person, place, ti (more content not included)... Normal [facility] Progress Note Endovascular Neurolo gy Note Patient Name:Efraín Meredith Patient : 1935 Acct: [id number] Date of Admission: 07/29/2024 Room/Bed: T2/ A PCP: Devon Stokes Contrast allergy: No HPI: Duy Meredith is a 88 y.o. male presenting to outside hospital with several days of left arm and hand numbness and slurred speech. Imaging obtained during evaluation identified right small right SAH. No history of trauma. New Complaint: VSS. Denies headache. Continues to have left arm numbness Current anticoagulants none Constitutional: Positive for activity change. Neurological: Positive for numbness and headaches. All other systems reviewed and are negative. Neurological Exam Mental Status Oriented to person, place, time and situation. Speech is normal. Language is fluent with no aphasia. Attention and concentration are normal. Cranial Nerves CN II: Visual acuity is normal. Visual bass full to confrontation. CN III, IV, : Extraocular movements intact bilaterally. Normal lids and orbits bilaterally. Pupils equal round and reactive to light bilaterally. CN V: Facial sensation is normal. CN VII: Full and symmetric facial movement. CN VIII: Hearing is normal. CN IX, X: Palate elevates symmetrically. Normal gag reflex. CN XI: Shoulder shrug strength is normal. CN XII: Tongue midline without atrophy or fasciculations. Motor The following abnormal movements were seen: Physical Exam Eyes: General: Lids are normal. Extraocular Movements: Extraocular movements intact. Pupils: Pupils are equal, round, and reactive to light. Cardiovascular: Rate and Rhythm: Regular rhythm. Comments: Pacer Psychiatric: Speech: Speech normal. Current Hospital Medications: Current Medications[1] Continuous Infusions: Continuous Meds[2] Allergies: Patient has no known allergies. Relevant Results FINDINGS: Acute Findings: Small amount of acute subarachnoid hemorrhage along the right central sulcus is unchanged. There is no new acute hemorrhage. Chronic Changes: Scattered patchy foci of white matter hypoattenuation, most likely mild chronic microvascular ischemic changes. Ventricles and sulci: Moderate generalized brain parenchymal volume loss with proportionate ventricular enlargement. Other: The skull, included paranasal sinuses and orbits are normal. IMPRESSION: Stable small volume acute subarachnoid hemorrhage. No new acute findings ASSESSMENT SAH of unclear etiology - no evidence of CAA on MRI PLAN/RECOMMENDATIONS: - resume diet - bedrest with right leg straight for 4 hours - no lifting > 10 pounds for 72 hours - ok to shower 24 hours post angio - no soaking, swimming, sauna for 7 days - follow up with Dr. Altman in 8-10 weeks Patient seen and discussed with Dr. Altman [1] Current Facility-Administered Medications: acetaminophen (Tylenol) tablet 1,000 mg, 1,000 mg, Oral, q6h PRN, YVETTE Hammer CNP, 1,000 mg at 07/29/241801 atorvastatin (Lipitor) tablet 20 mg, 20 mg, Oral, Nightly, YVETTE Hammer CNP, 20 mg at 07/31/242013 bisacodyl (Dulcolax) suppository 10 mg, 10 mg, Rectal, Daily PRN, YVETTE Hammer CNP fentaNYL (Sublimaze) injection, , IntraVENous, PRN, Juan Altman MD, 50 mcg at 08/01/24 0957 lidocaine PF (Xylocaine) 1 % injection, , , PRN, Juan Altman MD, 10 mL at 08/01/24 0958 midazolam (Versed) injection, , IntraVENous, PRN, Juan Altman MD, 1 mg at 08/01/24 0958 mupirocin (Bactroban) 2 % ointment 1 Application, 1 Application, Nasal, BID, YVETTE Hammer CNP, 1 Application at 07/30/242040 niCARdipine (Cardene) infusion 20mg in 0.9 % sodium chloride 200mL (premix), 2.5-15 mg/hr, IntraVENous, Continuous, YVETTE Hammer CNP ondansetron ODT (Zofran-ODT) disintegrating tablet 4 mg, 4 mg, Oral, q8h PRN OR ondansetron (Zofran) injection 4 mg, 4 mg, IntraVENous, q6h PRN, Marion Lee APRN - RIMA pantoprazole (ProtoNix) EC tablet 40 mg, 40 mg, Oral, Nightly, 40 mg at 07/31/242013 OR pantoprazole (ProtoNix) 40 mg in sodium chloride (PF) 0.9 % 10 mL injection, 40 mg, IntraVENous, Nightly, Marion A Rosa, IT PORTFOLIO MANAGER - ARCHITECTURAL DESIGNER polyethylene glycol (PEG) 3350 (Miralax) packet 17 g, 17 g, Oral, Daily PRN, Marion A Rosa, IT PORTFOLIO MANAGER - ARCHITECTURAL DESIGNER sodium chloride 0.9% (NS) flush 10 mL, 10 mL, IntraVENous, 2 times per day, Marion A Rosa, IT PORTFOLIO MANAGER - ARCHITECTURAL DESIGNER, 10 mL at 07/31/24 1710 sodium chloride 0.9% (NS) flush 10 mL, 10 mL, IntraVENous, PRN, Marion A Rosa, IT PORTFOLIO MANAGER - ARCHITECTURAL DESIGNER sodium chloride 0.9% (NS) flush 10 mL, 10 mL, IntraVENous, PRN, Marion A Rosa, IT PORTFOLIO MANAGER - ARCHITECTURAL DESIGNER [2] niCARdipine, 2.5-15 mg/hr Normal [facility] RFA Carotid artery and Cereb ral artery - left Views W contrast IAon 08-01-2024 Impression: * No aneurysms, vascular malformations or dural AV fistulas were identified as a cause for right cortical subarachnoid hemorrhage. There is no significant intracranial dissection. * There is a mild multifocal intracranial atherosclerosis. In the correct clinical setting and age group,a vasculopathy like reversible cerebral vasoconstriction syndrome would be angiographically indistinguishable. Report Dictated on Electronically Signed By: Juan Altman Electronically Signed Date/Time: 08/01/2024 11:13 AM [facility] Patient Name: EFRAÍN MEREDITH : 1935 [facility]#: [id number] Exam Date/Time: 08/01/2024 09:55 Procedure: IR ANGIOGRAM CEREBRAL DIAGNOSTIC Ordering Provider: FARRIS VALERIE Reason For Exam: SUBARACHNOID HEMORRHAGE Procedure: Diagnostic cerebral angiogram with three-dimensional rotational angiography Moderate procedural sedation for 60 minutes Physical Optics Teacher/Treating Physicians: Juan Altman MD Clinical Information: The patient is a 88-year-old man who presented with nontraumatic cortical sulcal subarachnoid hemorrhage. MRI brain with and without contrast did not show any etiology for the subarachnoid hemorrhage. CT angiogram did not show any aneurysms. We were requested for diagnostic cerebral angiogram. Consent: The benefits, alternatives, and risks to the procedure including but not limited to stroke, bleed, infection, dissection, pseudoaneurysm, OH, renal failure, radiation injury, hair loss, contrast allergy and reactions, vasospasm, vessel rupture, cardiogenic shock, deep venous thrombosis, pulmonary embolism, other unforeseen complications and were discussed with the patient. All questions were answered. The patient agreed to proceed. Anesthesia: One mg of Versed and the 50 ug of fentanyl were administered. An independent trained observer [RN] monitor the patient throughout the procedure. Room time: 2 hours Technique/findings: The patient was brought to the angiography suite and placed in supine position. Patient's groins were prepped and draped in standard fashion. The right common femoral artery was localized with ultrasonic guidance and after local anesthesia with 1% lidocaine, accessed with a 4F micro puncture kit with a single-wall puncture. The 4F dilator was exchanged for a 5 Latvian short sheath over a guidewire. The short sheath was connected to heparinized saline flush. Right common carotid artery: Intracranial view Under fluoroscopic guidance, the catheter was positioned in the right common carotid artery and biplane and three-dimensional rotational angiography was performed over the cranium. The three-dimensional rotational images were transferred to a separate workstation for postacquisition image processing. The intracranial views of the right common carotid artery in the AP, lateral and three-dimensional rotational projections demonstrate mild tortuosity, but otherwise normal supraclinoid right internal carotid artery, right middle cerebral artery and its divisions and the right anterior cerebral artery. There is a robust right posterior communicating artery. No aneurysms, vascular malformations or dural fistulas are demonstrated. There is no intracranial dissection. There is multifocal mild intracranial atherosclerosis. The capillary and venous phases are normal. The right external carotid artery and its intracranial branches are visualized and appear normal. The aortic arch is bovine variant and the diagnostic catheter was switched to a Blum diagnostic catheter that was shaped into a Blum shape. Left common carotid artery: Intracranial view Under fluoroscopic guidance, the diagnostic catheter was advanced into the left common carotid artery and biplane angiography was performed over the cranium. The intracranial views of the left common carotid artery in the AP and lateral projections demonstrate mild tortuosity, but otherwise normal supraclinoid left internal carotid artery, left middle cerebral artery and its divisions and the left anterior cerebral artery. There is a robust left posterior communicating artery. No aneurysms, arteriovenous malformations or dural AV fistulas are demonstrated. There is no intracranial dissection. There is mild multifocal intracranial atherosclerosis. The capillary and venous phases are normal. The left external carotid artery and its intracranial branches are visualized and appear normal. Left vertebral artery: Intracranial view Under fluoroscopy guidance, the diagnostic catheter was advanced into the ostium of the left vertebral artery and biplane angiography was performed over the cranium. The intracranial views of the left vertebral artery demonstrate a hypoplastic left vertebral artery but otherwise normal V3 and proximal V4 segments. The left vertebral artery terminates in a robust left posterior inferior cerebellar artery. There is no opacification of basilar artery and distal branches. No aneurysms, vascular malformation or arteriovenous malformation are demonstrated. There is no intracranial dissection. Multiple attempts were made to advance the catheters into the right subclavian artery and the right vertebral artery. However, the extreme tortuosity of the brachiocephalic trunk and the origin of the right subclavian artery may be difficult to access the left vertebral artery and resulted in recurrent prolapse of catheter into the aortic arch. Right femoral artery: Pelvic view The pelvic view of the (more content not included)... [facility] RADIOLOGY SYSTEM Juan Altman MD - 08/01/2024 Patient Name: EFRAÍN MEREDITH : 1935 [address] [id number] Exam Date/Time: 08/01/2024 09:55 Procedure: IR ANGIOGRAM CEREBRAL DIAGNOSTIC Ordering Provider: FARRIS VALERIE Reason For Exam: SUBARACHNOID HEMORRHAGE Procedure: Diagnostic cerebral angiogram with three-dimensional rotational angiography Moderate procedural sedation for 60 minutes Physical Optics Teacher/Treating Physicians: Juan Altman MD Clinical Information: The patient is a 88-year-old man who presented with nontraumatic cortical sulcal subarachnoid hemorrhage. MRI brain with and without contrast did not show any etiology for the subarachnoid hemorrhage. CT angiogram did not show any aneurysms. We were requested for diagnostic cerebral angiogram. Consent: The benefits, alternatives, and risks to the procedure including but not limited to stroke, bleed, infection, dissection, pseudoaneurysm, OH, renal failure, radiation injury, hair loss, contrast allergy and reactions, vasospasm, vessel rupture, cardiogenic shock, deep venous thrombosis, pulmonary embolism, other unforeseen complications and were discussed with the patient. All questions were answered. The patient agreed to proceed. Anesthesia: One mg of Versed and the 50 ug of fentanyl were administered. An independent trained observer [RN] monitor the patient throughout the procedure. Room time: 2 hours Technique/findings: The patient was brought to the angiography suite and placed in supine position. Patient's groins were prepped and draped in standard fashion. The right common femoral artery was localized with ultrasonic guidance and after local anesthesia with 1% lidocaine, accessed with a 4F micro puncture kit with a single-wall puncture. The 4F dilator was exchanged for a 5 Latvian short sheath over a guidewire. The short sheath was connected to heparinized saline flush. Right common carotid artery: Intracranial view Under fluoroscopic guidance, the catheter was positioned in the right common carotid artery and biplane and three-dimensional rotational angiography was performed over the cranium. The three-dimensional rotational images were transferred to a separate workstation for postacquisition image processing. The intracranial views of the right common carotid artery in the AP, lateral and three-dimensional rotational projections demonstrate mild tortuosity, but otherwise normal supraclinoid right internal carotid artery, right middle cerebral artery and its divisions and the right anterior cerebral artery. There is a robust right posterior communicating artery. No aneurysms, vascular malformations or dural fistulas are demonstrated. There is no intracranial dissection. There is multifocal mild intracranial atherosclerosis. The capillary and venous phases are normal. The right external carotid artery and its intracranial branches are visualized and appear normal. The aortic arch is bovine variant and the diagnostic catheter was switched to a Blum diagnostic catheter that was shaped into a Blum shape. Left common carotid artery: Intracranial view Under fluoroscopic guidance, the diagnostic catheter was advanced into the left common carotid artery and biplane angiography was performed over the cranium. The intracranial views of the left common carotid artery in the AP and lateral projections demonstrate mild tortuosity, but otherwise normal supraclinoid left internal carotid artery, left middle cerebral artery and its divisions and the left anterior cerebral artery. There is a robust left posterior communicating artery. No aneurysms, arteriovenous malformations or dural AV fistulas are demonstrated. There is no intracranial dissection. There is mild multifocal intracranial atherosclerosis. The capillary and venous phases are normal. The left external carotid artery and its intracranial branches are visualized and appear normal. Left vertebral artery: Intracranial view Under fluoroscopy guidance, the diagnostic catheter was advanced into the ostium of the left vertebral artery and biplane angiography was performed over the cranium. The intracranial views of the left vertebral artery demonstrate a hypoplastic left vertebral artery but otherwise normal V3 and proximal V4 segments. The left vertebral artery terminates in a robust left posterior inferior cerebellar artery. There is no opacification of basilar artery and distal branches. No aneurysms, vascular malformation or arteriovenous malformation are demonstrated. There is no intracranial dissection. Multiple attempts were made to advance the catheters into the right subclavian artery and the right vertebral artery. 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 [facility] Radiology Study observation (narrative) Juice pollard [id number] 07-31-2024 [id number] Called PCP office to schedule follow up and had to leave message awaiting callback. Normal [facility] [phone] Met with patient and discussed Neurology follow up and he would like [place] office. Braden is scheduling in November and that is to far out. Neurology Follow Up: Oct 03 Hospital Follow Up with Connie Qiu APRN - [facility] Tuesday 1:00 PM Please arrive 15 minutes prior to appointment, bring insurance card and photo ID. [facility] - [place] [address] [facility] [id number] Arrive at: [facility] NEURO Normal [facility] BASIC METABOLIC PANELon 07-15 Anion gap [Moles/Vol] 9 mmol/L Normal 3-13 [facility] Comment on above: Performed By: #### L AB20, LAB15, [id number], [id number] #### Milling Machine Operator Gear: MARY MOLINA ([id number]) [facility] ([facility]) [address] [place] [address] Calcium [Mass/Vol] 8.9 mg/dL Normal 8.8-10.0 [facility] Comment on above: Performed By: #### L AB20, LAB15, [id number], [id number] #### Milling Machine Operator Gear: MARY MOLINA ([id number]) [facility] ([facility]) [address] [place] [address] Chloride [Moles/Vol] 110 mmol/L High 98-107 [facility] Comment on above: Performed By: #### L AB20, LAB15, [id number], [id number] #### Milling Machine Operator Gear: MARY MOLINA ([id number]) [facility] ([facility]) [address] [place] [address] CO2 [Moles/Vol] 18 mmol/L Low 23-31 [facility] Comment on above: Performed By: #### L AB20, LAB15, GVA137, [id number] #### Milling Machine Operator Gear: MARY MOLINA ([id number]) [facility] ([facility]) [address] [place] [address] Creatinine [Mass/Vol] 0.98 mg/dL Normal 0.72-1.25 [facility] Comment on above: Performed By: #### L AB20, LAB15, [id number], [id number] #### Milling Machine Operator Gear: MARY MOLINA ([id number]) [facility] ([facility]) [address] [place] [address] GLOMERULAR FILTRATION RATE ML/MIN/1.73 SQ M.PREDICTED 74.2 mL/min/1.73m*2 Normal >60.0 [facility] Comment on above: Result Comment: Calc ulation based on the Chronic Kidney Disease Epidemiology Collaboration (CKD-EPI) equation refit without adjustment for race Performed By: #### L AB20, LAB15, [id number], [id number] #### Milling Machine Operator Gear: MARY MOLINA ([id number]) [facility] ([facility]) [address] [place] [address] Glucose [Mass/Vol] 105 mg/dL Normal 82-115 [facility] Comment on above: Performed By: #### L AB20, LAB15, [id number], [id number] #### Milling Machine Operator Gear: MARY MOLINA ([id number]) [facility] ([facility]) [address] [place] [address] Potassium [Moles/Vol] 4.1 mmol/L Normal 3.5-5.1 [facility] Comment on above: Result Comment: [facility] potassium values may be up to 0.5 mmol/L lower than serum values. Performed By: #### L AB20, LAB15, UBW571, [id number] #### Milling Machine Operator Gear: MARY MOLINA ([id number]) [facility] ([facility]) [address] [place] [address] Sodium [Moles/Vol] 137 mmol/L Normal 136-145 [facility] Comment on above: Performed By: #### L AB20, LAB15, [id number], [id number] #### Milling Machine Operator Gear: MARY MOLINA ([id number]) [facility] ([facility]) [address] [place] [address] Urea nitrogen [Mass/Vol] 14 mg/dL Normal 9-23 [facility] Comment on above: Performed By: #### L AB20, LAB15, [id number], [id number] #### Milling Machine Operator Gear: MARY MOLINA ([id number]) [facility]) [address] [place] [address] Basic metabolic 1998 panelon 07-31-2024 Anion gap [Moles/Vol] 9 mmol/L 3 - 13 mmol/L [facility] Calcium [Mass/Vol] 8.9 mg/dL 8.8 - 10. 0 mg/dL [facility] Chloride [Moles/Vol] 110 mmol/L High 98 - 10 7 mmol/L [facility] CO2 [Moles/Vol] 18 mmol/L Low 23 - 31 mmol/L [facility] Creatinine [Mass/Vol] 0.98 mg/dL 0.72 - 1.25 mg/dL [facility] GFR/1.73 sq M.predicted (S/P/Bld) [Vol rate/Area] 74.2 mL/min - PINF [facility] Comment on above: Calculation based on the Chronic Kidney Disease Epidemiology Collaboration (CKD-EPI) equation refit without adjustment for race Glucose [Mass/Vol] 105 mg/dL 82 - 115 mg/dL [facility] Interpretation and review of laboratory results Abnormal [facility] Potassium [Moles/Vol] 4.1 mmol/L 3.5 - 5.1 mmol/L [facility] Comment on above: Plasma potassium deb ues may be up to 0.5 mmol/L lower than serum values. Sodium [Moles/Vol] 137 mmol/L 136 - 145 mmol/L [facility] Urea nitrogen [Mass/Vol] 14 mg/dL 9 - 23 mg/dL [facility] CALCIUM, IONIZEDon CALCIUM IONIZED 4.40 mg/dL Normal 4.30-5.20 [facility] Comment on above: Performed By: #### L [id number] #### Milling Machine Operator Gear: MARY MOLINA ([id number]) [facility] ([facility]) [address] [place] [address] PH, IONIZED CALCIUM 7.47 High 7.31-7.46 [facility] Comment on above: Performed By: #### L [id number] #### Milling Machine Operator Gear: MARY MOLINA ([id number]) [facility] ([facility]) [address] [place] [address] CBC W Auto Differential pane l (Bld)on 07-31-2024 Basophils (Bld) [#/Vol] 0.1 10*3/uL 0.0 - 0.2 10*3/uL [facility] Basophils/100 WBC (Bld) 0.5 % 0.0 - 2.0 % [facility] Eosinophils (Bld) [#/Vol] 0.2 10*3/uL 0.0 - 0.5 10*3/uL [facility] Eosinophils/100 WBC (Bld) 1.2 % 0.0 - 6.0 % [facility] Erythrocyte distribution width (RBC) [Ratio] 13.3 % 11.5 - 15.0 % [facility] Hematocrit (Bld) [Volume fraction] 43 % 40.0 - 52.0 % [facility] Hemoglobin (Bld) [Mass/Vol] 14.2 g/dL 13.0 - 18.0 g/dL [facility] Immature granulocytes (Bld) [#/Vol] 0.1 10*3/uL High NINF - 0.1 10*3/uL [facility] [employer] Immature granulocytes/100 WBC (Bld) 0.5 % 0.0 - 2.0 % [facility] Interpretation and review of laboratory results Abnormal [facility] [employer] Lymphocytes (Bld) [#/Vol] 4.5 10*3/uL High 1.0 - 4.3 10*3/uL [facility] Lymphocytes/100 WBC (Bld) 34.4 % 15.0 - 45.0 % [facility] MCH (RBC) [Entitic mass] 28.8 pg 26.0 - 34.0 pg [facility] MCHC (RBC) [Mass/Vol] 33 % 30.5 - 36.0 % [facility] MCV (RBC) [Entitic vol] 87.2 fL 77.0 - 99.0 fL [facility] Monocytes (Bld) [#/Vol] 0.8 10*3/uL 0.0 - 0.9 10*3/uL [facility] Monocytes/100 WBC (Bld) 5.8 % 5.0 - 13.0 % [facility] Neutrophils (Bld) [#/Vol] 7.6 10*3/uL High 1.8 - 7.5 10*3/uL [facility] Neutrophils/100 WBC (Bld) 57.6 % 38.0 - 82.0 % [facility] [employer] Nucleated RBC/100 WBC (Bld) [Ratio] 0 % [facility] [employer] Platelet mean volume (Bld) [Entitic vol] 11.1 fL 9.0 - 12.7 fL [facility] Platelets (Bld) [#/Vol] 235 10*3/uL 140 - 440 10*3/uL [facility] [employer] RBC (Bld) [#/Vol] 4.93 10*6/uL 4.40 - 5.9 0 10*6/uL [facility] WBC (Bld) [#/Vol] 13.1 10*3/uL High 3.6 - 10.7 10*3/uL [facility] CBC WITH AUTO DIFFERENTIALon 07-31-2024 Basophils (Bld) [#/Vol] 0.1 10*3/uL Normal 0.0-0.2 [facility] Comment on above: Performed By: #### L AB20, LAB15, [id number], [id number] #### Milling Machine Operator Gear: MARY MOLINA ([id number]) [facility] ([facility]) [address] [place] [address] Basophils/100 WBC (Bld) 0.5 % Normal 0.0-2.0 [facility] Comment on above: Performed By: #### L AB20, LAB15, TET701, [id number] #### Milling Machine Operator Gear: MARY MOLINA ([id number]) [facility] ([facility]) [address] [place] [address] Eosinophils (Bld) [#/Vol] 0.2 10*3/uL Normal 0.0-0.5 [facility] Comment on above: Performed By: #### L AB20, LAB15, KWM560, [id number] #### Milling Machine Operator Gear: MARY MOLINA ([id number]) [facility] ([facility]) [address] [place] [address] Eosinophils/100 WBC (Bld) 1.2 % Normal 0.0-6.0 [facility] Comment on above: Performed By: #### L AB20, LAB15, CHN646, [id number] #### Milling Machine Operator Gear: MARY MOLINA ([id number]) [facility]) [address] [place] [address] Erythrocyte distribution width (RBC) [Ratio] 13.3 % Normal 11.5-15.0 [facility] Comment on above: Performed By: #### L AB20, LAB15, UHT986, DKZ105 #### Milling Machine Operator Gear: MARY MOLINA ([id number]) [facility]) [address] [place] [address] Hematocrit (Bld) [Volume fraction] 43.0 % Normal 40.0-52.0 [facility] Comment on above: Performed By: #### L AB20, LAB15, NWH770, YJC285 #### Milling Machine Operator Gear: MARY MOLINA ([id number]) [facility]) [address] [place] [address] Hemoglobin (Bld) [Mass/Vol] 14.2 g/dL Normal 13.0-18.0 [facility] Comment on above: Performed By: #### L AB20, LAB15, PGG646, IHV557 #### Milling Machine Operator Gear: MARY MOLINA ([id number]) [facility]) [address] [place] [address] IMMATURE GRANS % 0.5 % Normal 0.0-2.0 [facility] Comment on above: Performed By: #### L AB20, LAB15, KJI207, [id number] #### Milling Machine Operator Gear: MARY MOLINA ([id number]) [facility]) [address] [place] [address] IMMATURE GRANS ABSOLUTE 0.1 10*3/uL High <0.1 [facility] Comment on above: Performed By: #### L AB20, LAB15, QVV727, QOI787 #### Milling Machine Operator Gear: MARY MOLINA ([id number]) [facility]) [address] [place] [address] Lymphocytes (Bld) [#/Vol] 4.5 10*3/uL High 1.0-4.3 [facility] Comment on above: Performed By: #### L AB20, LAB15, DZA120, [id number] #### Milling Machine Operator Gear: MARY MOLINA ([id number]) [facility]) [address] [place] [address] Lymphocytes/100 WBC (Bld) 34.4 % Normal 15.0-45.0 [facility] Comment on above: Performed By: #### L AB20, LAB15, ZPL219, DKB523 #### Milling Machine Operator Gear: MARY MOLINA ([id number]) [facility]) [address] [place] [address] MCH (RBC) [Entitic mass] 28.8 pg Normal 26.0-34.0 [facility] Comment on above: Performed By: #### L AB20, LAB15, AWY047, ELS596 #### Milling Machine Operator Gear: MARY MOLINA ([id number]) [facility]) [address] [place] [address] MCHC 33.0 % Normal 30.5-36.0 [facility] Comment on above: Performed By: #### L AB20, LAB15, UBY933, ENN076 #### Milling Machine Operator Gear: MARY MOLINA ([id number]) [facility] ([facility]) [address] [place] [address] MCV (RBC) [Entitic vol] 87.2 fL Normal 77.0-99.0 [facility] Comment on above: Performed By: #### L AB20, LAB15, BJD866, AAP885 #### Milling Machine Operator Gear: MARY MOLINA ([id number]) [facility] ([facility]) [address] [place] [address] Monocytes (Bld) [#/Vol] 0.8 10*3/uL Normal 0.0-0.9 [facility] Comment on above: Performed By: #### L AB20, LAB15, VCX018, [id number] #### Milling Machine Operator Gear: MARY MOLINA ([id number]) [facility] ([facility]) [address] [place] [address] Monocytes/100 WBC (Bld) 5.8 % Normal 5.0-13.0 [facility] Comment on above: Performed By: #### L AB20, LAB15, LQO506, QJS089 #### Milling Machine Operator Gear: MARY MOLINA ([id number]) [facility] ([facility]) [address] [place] [address] NEUTROPHILS ABSOLUTE 7.6 10*3/uL High 1.8-7.5 [facility] Comment on above: Performed By: #### L AB20, LAB15, ABL225, SWM566 #### Milling Machine Operator Gear: MARY MOLINA ([id number]) [facility] ([facility]) [address] [place] [address] Neutrophils/100 WBC (Bld) 57.6 % Normal 38.0-82.0 [facility] Comment on above: Performed By: #### L AB20, LAB15, UDG119, [id number] #### Milling Machine Operator Gear: MARY MOLINA ([id number]) [facility] ([facility]) [address] [place] [address] NRBC 0.0 /100 WBCs Normal 0.0-2.0 [facility] Comment on above: Performed By: #### L AB20, LAB15, OVY387, VVV234 #### Milling Machine Operator Gear: MARY MOLINA ([id number]) [facility] ([facility]) [address] [place] [address] Platelet mean volume (Bld) [Entitic vol] 11.1 fL Normal 9.0-12.7 [facility] Comment on above: Performed By: #### L AB20, LAB15, OAE180, QHF466 #### Milling Machine Operator Gear: MARY MOLINA ([id number]) [facility] ([facility]) [address] [place] [address] Platelets (Bld) [#/Vol] 235 10*3/uL Normal 140-440 [facility] Comment on above: Performed By: #### L AB20, LAB15, YWC503, [id number] #### Milling Machine Operator Gear: MARY MOLINA ([id number]) [facility] ([facility]) [address] [place] [address] RBC (Bld) [#/Vol] 4.93 10*6/uL Normal 4.40-5.90 [facility] Comment on above: Performed By: #### L AB20, LAB15, JFD532, [id number] #### Milling Machine Operator Gear: MARY MOLINA ([id number]) [facility] ([facility]) [address] [place] [address] WBC (Bld) [#/Vol] 13.1 10*3/uL High 3.6-10.7 [facility] Comment on above: Performed By: #### L AB20, LAB15, LKJ634, [id number] #### Milling Machine Operator Gear: MARY MOLINA ([id number]) [facility]) [address] [place] [address] Calcium.ionized [Moles/Vol]O rdered By: Miroslava Baker on 07-31-2024 Calcium.ionized (Bld) [Moles/Vol] 4.4 mg/dL 4.30 - 5.20 mg/dL [facility] Interpretation and review of laboratory results Abnormal [facility] PH, IONIZED CALCIUM 7.47 High 7.31 - 7.46 [facility] HEPATIC FUNCTION PANELon Albumin [Mass/Vol] 3.7 g/dL Normal 3.4-4.8 [facility] Comment on above: Performed By: #### L AB20, LAB15, RRS270, JQP841 #### Milling Machine Operator Gear: MARY OMLINA ([id number]) [facility] ([facility]) [address] [place] [address] ALP [Catalytic activity/Vol] 74 U/L Normal 40-150 [facility] Comment on above: Performed By: #### L AB20, LAB15, BRV723, [id number] #### Milling Machine Operator Gear: MARY MOLINA ([id number]) [facility] ([facility]) [address] [place] [address] ALT [Catalytic activity/Vol] 26 U/L Normal <40 [facility] Comment on above: Performed By: #### L AB20, LAB15, WLF285, UKD555 #### Milling Machine Operator Gear: MARY MOLINA ([id number]) [facility] ([facility]) [address] [place] [address] AST [Catalytic activity/Vol] 21 U/L Normal <34 [facility] Comment on above: Performed By: #### L AB20, LAB15, PJO010, EFH509 #### Milling Machine Operator Gear: MARY MOLINA ([id number]) [facility] ([facility]) [address] [place] [address] Bilirubin [Mass/Vol] 0.9 mg/dL Normal <1.[address] [facility] Comment on above: Performed By: #### L AB20, LAB15, ALJ416, MGF462 #### Milling Machine Operator Gear: MARY MOLINA ([id number]) [facility]) [address] [place] [address] Bilirubin.indirect [Mass/Vol] 0.2 mg/dL Normal <0.5 [facility] Comment on above: Performed By: #### L [id number], [id number], [id number], [id number] #### Milling Machine Operator Gear: MARY MOLINA ([id number]) [facility] ([facility]) [address] [place] [address] Protein [Mass/Vol] 6.6 g/dL Normal 6.4-8.3 [facility] Comment on above: Result Comment: Seru m protein values are higher than plasma values. Samples from recumbent persons are lower by up to 0.5 g/dL as compared to ambulatory persons. After 60 years values are lower by up to 0.2 g/dL. Performed By: #### L [id number], LAB15, [id number], [id number] #### Milling Machine Operator Gear: MARY MOLINA ([id number]) [facility] ([facility]) [address] [place] [address] Hepatic function 2000 panelo n 07-31-2024 Albumin [Mass/Vol] 3.7 g/dL 3.4 - 4.8 g/dL [facility] [employer] ALP [Catalytic activity/Vol] 74 U/L 40 - 150 U/L [facility] ALT [Catalytic activity/Vol] 26 U/L [facility] - 40 U/L [facility] AST [Catalytic activity/Vol] 21 U/L [facility] - 34 U/L [facility] [employer] Bilirubin [Mass/Vol] 0.9 mg/dL [facility] - 1.2 mg/dL [facility] Bilirubin.conjugated [Mass/Vol] 0.2 mg/dL [facility] - 0.5 mg/dL [facility] Protein [Mass/Vol] 6.6 g/dL 6.4 - 8.3 g/dL [facility] Comment on above: Serum protein values are higher than plasma values. Samples from recumbent persons are lower by up to 0.5 g/dL as compared to ambulatory persons. After 60 years values are lower by up to 0.2 g/dL. Laboratory - Chemistry and C hemistry - challengeon 07-31-2024 Magnesium [Mass/Vol] 1.9 mg/dL 1.6 - 2 .6 mg/dL [facility] Laboratory - Coagulationon 0 07-31-2024 aPTT Coag (PPP) [Time] 24.9 s 20.0 - 30.5 s [facility] INR Coag (PPP) [Relative time] 1.1 {INR} 0.9 - 1.1 [facility] Comment on above: Recommended Anticoag ulant Therapy: SEE BELOW ----- INR of 2.0 - 3.0 : - Prophylaxis of Venous Thrombosis (high-risk surgery) - Treatment of Venous Thrombosis - Treatment of Pulmonary Embolism (Includes tissue heart valves, Acute Myocardial Infarction to prevent systemic embolism, Valvular Heart Disease, and Atrial Fibrillation) ----- INR of 2.5 - 3.5 : - Mechanical Prosthetic Valves (high risk) - If oral anticoagulant therapy is used to prevent Myocardial Infarction PT Coag (Bld) [Time] 11.3 s 9.0 - 12.0 s [facility] MAGNESIUMon 07-31-2024 Magnesium [Mass/Vol] 1.9 mg/dL Normal 1.6-2.6 [facility] Comment on above: Result Comment: LEONOR Polanco COMMENTS: Higher values can be expected in females during menses. Performed By: #### L AB20, LAB15, [id number], [id number] #### Milling Machine Operator Gear: MARY MOLINA ([id number]) [facility] ([id number] Magnesium [Mass/Vol]on 07-31 Higher values can be expected in females during menses. [facility] No Panel Informationon 07-31 Demetri Quinonez DO 07/31/2024 2:17 PM [facility] [address] [place] [address] ROUTINE EEG REPORT Patient Name: Efraín Meredith : 1935 Date of Study: 07/31/24 Duration Recorded: 23 minutes EEG#: [id number] WRAPPER LAYER: FRANSISCA/OLGA LIDIA PROVIDER REQUESTING STUDY: RICHI Perkins REASON FOR EXAM: Evaluate for seizures DIAGNOSIS TAG: Subarachnoid Hemorrhage (SAH) HISTORY: Efraín Meredith is a 88 y.o. male with history of HTN, HLD, CAD s/p stent, HFrEF (25%), s/p ICD, TIA who presented to [facility] from [facility] on 07/29 with a chief complaint of intermittent slurred speech, LUE numbness x5 days. CT head with R cortical SAH. Transferred to [facility] T2. CT head repeated, stable. CTA head/neck without vascular abnormality. MEDICATIONS: Current Medications[1] TECHNICAL ASPECTS: This routine scalp EEG study with video was carried out at [facility]. Scalp electrodes were positioned in person by an nuclear medical technologist, following patient education, according to the 10-20 International system of electrode placement and maintained for integrity and quality of the recording. EEG data was recorded continuously and digitally stored. The nuclear medical technologist reviewed all automated detections and manual events and prepared the data for archiving and provider review. Referential and bipolar montages were used for review. TECHNOLOGIST NOTES: No skull or scalp defects were observed. BACKGROUND ACTIVITY: Posterior background activityA continuous organized and well-modulated 8-9 Hz, 20-30 uV rhythm was seen symmetrically over the posterior head regions bilaterally. Beta range: Fronto-centrally predominant beta range activity (15-25 Hz, 10-20 uV) was seen. Sleep: Stage N2 sleep was reached as evidenced by the appearance of vertex waves and sleep spindles seen symmetrically over the central head regions bilaterally. Normal Variants: No normal variants were identified. 10:21:36 -Background activity (Referential to average) SLOWING: No abnormal slowing was seen. INTERICTAL EPILEPTIFORM ACTIVITY: No epileptiform activity was seen. ICTAL ACTIVITY: No ictal activity was seen. NON-EPILEPTIC EVENTS: None. ACTIVATION PROCEDURES: Photic stimulation was not performed. Hyperventilation was not performed. IMPRESSION AND ACTIONS TAKEN: This routine EEG with video is within normal limits for the awake and sleep states. No abnormal slowing, interictal epileptiform activity, or seizures are observed. Jackson Newman, PhD Clinical Neurophysiologist Demetri Quinonez DO [1] Current Facility-Administered Medications Medication Dose Route Frequency Provider Last Rate Last Admin acetaminophen (Tylenol) tablet 1,000 mg 1,000 mg Oral q6h PRN Marion A Rosa, IT PORTFOLIO MANAGER - ARCHITECTURAL DESIGNER 1,000 mg at 07/29/24 1802 atorvastatin (Lipitor) tablet 20 mg 20 mg Oral Nightly Marion A Rosa, IT PORTFOLIO MANAGER - ARCHITECTURAL DESIGNER 20 mg at 07/30/240 bisacodyl (Dulcolax) suppository 10 mg 10 mg Rectal Daily PRN Marion A Rosa, IT PORTFOLIO MANAGER - ARCHITECTURAL DESIGNER mupirocin (Bactroban) 2 % ointment 1 Application 1 Application Nasal BID Marion A Rosa, IT PORTFOLIO MANAGER - ARCHITECTURAL DESIGNER 1 Application at 07/30/242040 niCARdipine (Cardene) infusion 20mg in 0.9 % sodium chloride 200mL (premix) 2.5-15 mg/hr IntraVENous Continuous Marion A Rosa, IT PORTFOLIO MANAGER - ARCHITECTURAL DESIGNER ondansetron ODT (Zofran-ODT) disintegrating tablet 4 mg 4 mg Oral q8h PRN Marion A Rosa, IT PORTFOLIO MANAGER - ARCHITECTURAL DESIGNER Or ondansetron (Zofran) injection 4 mg 4 mg IntraVENous q6h PRN Marion A Rosa, IT PORTFOLIO MANAGER - ARCHITECTURAL DESIGNER pantoprazole (ProtoNix) EC tablet 40 mg 40 mg Oral Nightly Marion A Rosa, IT PORTFOLIO MANAGER - ARCHITECTURAL DESIGNER 40 mg at 07/30/242039 Or pantoprazole (ProtoNix) 40 mg in sodium chloride (PF) 0.9 % 10 mL injection 40 mg IntraVENous Nightly Marion A Rosa, IT PORTFOLIO MANAGER - ARCHITECTURAL DESIGNER polyethylene glycol (PEG) 3350 (Miralax) packet 17 g 17 g Oral Daily PRN Marion A Rosa, IT PORTFOLIO MANAGER - ARCHITECTURAL DESIGNER sodium chloride 0.9% (NS) flush 10 mL 10 mL IntraVENous 2 times per day Marion A Rosa, IT PORTFOLIO MANAGER - ARCHITECTURAL DESIGNER 10 mL at 07/30/24 0746 sodium chloride 0.9% (NS) flush 10 mL 10 mL IntraVENous PRN Marion A Rosa, IT PORTFOLIO MANAGER - ARCHITECTURAL DESIGNER sodium chloride 0.9% (NS) flush 10 mL 10 mL IntraVENous PRN Marion A Rosa, IT PORTFOLIO MANAGER - ARCHITECTURAL DESIGNER [facility] Interpretation and review of laboratory results Normal [facility] Interpretation and review of laboratory results Normal [facility] PHOSPHORUSon 07-31-2024 Phosphate [Mass/Vol] 3.1 mg/dL Normal 2.3-4.7 [facility] Comment on above: Performed By: #### L AB20, LAB15, [id number], [id number] #### Milling Machine Operator Gear: MARY MOLINA ([id number]) [facility] ([facility]) [address] [place] [address] PROTIME AND APTTon aPTT Coag (Bld) [Time] 24.9 s Normal 20.0-30.5 [facility] Comment on above: Performed By: #### L [id number] #### Milling Machine Operator Gear: MARY MOLINA ([id number]) [facility]) [address] [place] [address] INR Coag (PPP) [Relative time] 1.1 {INR} Normal 0.9-1.1 [facility] Comment on above: Result Comment: Bryon mmended Anticoagulant Therapy: SEE BELOW ----- INR of 2.0 - 3.0 : - Prophylaxis of Venous Thrombosis (high-risk surgery) - Treatment of Venous Thrombosis - Treatment of Pulmonary Embolism (Includes tissue heart valves, Acute Myocardial Infarction to prevent systemic embolism, Valvular Heart Disease, and Atrial Fibrillation) ----- INR of 2.5 - 3.5 : - Mechanical Prosthetic Valves (high risk) - If oral anticoagulant therapy is used to prevent Myocardial Infarction Performed By: #### L [id number] #### Milling Machine Operator Gear: MARY MOLINA ([id number]) [facility] ([facility]) [address] [place] [address] PT Coag (PPP) [Time] 11.3 s Normal 9.0-12.0 [facility] Comment on above: Performed By: #### L [id number] #### Milling Machine Operator Gear: MARY MOLINA ([id number]) [facility] ([facility]) [address] [place] [address] Phosphate [Moles/Vol]on 07-15 Phosphate [Mass/Vol] 3.1 mg/dL 2.3 - 4 .7 mg/dL [facility] Progress Noteon 07-31-2024 Progress Note Palliative Care Interdisciplinary Team Note: Diagnosis: Principal Problem: Intracranial hemorrhage (HCC) Chief Complaint: Efraín Meredith is a 88 y.o. male with chief complaint of: John Bleed Reason Palliative Following:Goals of Care Plan:Ongoing Goals of Care Discussions Code Status: Full Code Medications: Palliative Care Not Managing Any Medications Nursing: Routine Nursing Care Social Work: No Unmet Needs Spiritual Care: No Unmet Needs Pharmacy: No Unmet Needs Psychology/Psychiatry: No Unmet Needs [facility] Progress Note Endovascular Neurolo gy Note Patient Name:Efraín Meredith Patient : 1935 Acct: [id number] Date of Admission: 07/29/2024 Room/Bed: T2-207/T2-207 A PCP: Devon Stokes Contrast allergy: No HPI: Duy Meredith is a 88 y.o. male presenting to outside hospital with several days of left arm and hand numbness and slurred speech. Imaging obtained during evaluation identified right small right SAH. No history of trauma. New Complaint: VSS. Denies headache Current anticoagulants none Constitutional: Positive for activity change. Neurological: Positive for numbness and headaches. All other systems reviewed and are negative. Neurological Exam Mental Status Oriented to person, place, time and situation. Speech is normal. Language is fluent with no aphasia. Attention and concentration are normal. Cranial Nerves CN II: Visual acuity is normal. Visual bass full to confrontation. CN III, IV, : Extraocular movements intact bilaterally. Normal lids and orbits bilaterally. Pupils equal round and reactive to light bilaterally. CN V: Facial sensation is normal. CN VII: Full and symmetric facial movement. CN VIII: Hearing is normal. CN IX, X: Palate elevates symmetrically. Normal gag reflex. CN XI: Shoulder shrug strength is normal. CN XII: Tongue midline without atrophy or fasciculations. Motor The following abnormal movements were seen: Physical Exam Eyes: General: Lids are normal. Extraocular Movements: Extraocular movements intact. Pupils: Pupils are equal, round, and reactive to light. Cardiovascular: Rate and Rhythm: Regular rhythm. Comments: Pacer Psychiatric: Speech: Speech normal. Current Hospital Medications: Current Medications[1] Continuous Infusions: Continuous Meds[2] Allergies: Patient has no known allergies. Relevant Results FINDINGS: Acute Findings: Small amount of acute subarachnoid hemorrhage along the right central sulcus is unchanged. There is no new acute hemorrhage. Chronic Changes: Scattered patchy foci of white matter hypoattenuation, most likely mild chronic microvascular ischemic changes. Ventricles and sulci: Moderate generalized brain parenchymal volume loss with proportionate ventricular enlargement. Other: The skull, included paranasal sinuses and orbits are normal. IMPRESSION: Stable small volume acute subarachnoid hemorrhage. No new acute findings ASSESSMENT SAH of unclear etiology - no evidence of CAA on MRI PLAN/RECOMMENDATIONS: - plan for diagnostic cerebral angiogram tomorrow - NPO after midnight, ok for meds with sips - further recommendations pending imaging Patient seen and discussed with Dr. Altman [1] Current Facility-Administered Medications: acetaminophen (Tylenol) tablet 1,000 mg, 1,000 mg, Oral, q6h PRN, Marion Lee APRN - RIMA, 1,000 mg at 07/29/241801 atorvastatin (Lipitor) tablet 20 mg, 20 mg, Oral, Nightly, Marion Lee APRN - RIMA, 20 mg at 07/30/242039 bisacodyl (Dulcolax) suppository 10 mg, 10 mg, Rectal, Daily PRN, Marion Lee APRN - [facility] mupirocin (Bactroban) 2 % ointment 1 Application, 1 Application, Nasal, BID, YVETTE Hammer CNP, 1 Application at 07/30/242040 niCARdipine (Cardene) infusion 20mg in 0.9 % sodium chloride 200mL (premix), 2.5-15 mg/hr, IntraVENous, Continuous, Marion Lee APRN - [facility] ondansetron ODT (Zofran-ODT) disintegrating tablet 4 mg, 4 mg, Oral, q8h PRN OR ondansetron (Zofran) injection 4 mg, 4 mg, IntraVENous, q6h PRN, Marion Lee APRN - [facility] pantoprazole (ProtoNix) EC tablet 40 mg, 40 mg, Oral, Nightly, 40 mg at 07/30/242039 OR pantoprazole (ProtoNix) 40 mg in sodium chloride (PF) 0.9 % 10 mL injection, 40 mg, IntraVENous, Nightly, Marion Lee IT PORTFOLIO MANAGER - ARCHITECTURAL DESIGNER polyethylene glycol (PEG) 3350 (Miralax) packet 17 g, 17 g, Oral, Daily PRN, Marion Lee, IT PORTFOLIO MANAGER - ARCHITECTURAL DESIGNER sodium chloride 0.9% (NS) flush 10 mL, 10 mL, IntraVENous, 2 times per day, Marion A Rosa, IT PORTFOLIO MANAGER - ARCHITECTURAL DESIGNER, 10 mL at 07/30/24 0746 sodium chloride 0.9% (NS) flush 10 mL, 10 mL, IntraVENous, PRN, Marion A Rosa, IT PORTFOLIO MANAGER - ARCHITECTURAL DESIGNER sodium chloride 0.9% (NS) flush 10 mL, 10 mL, IntraVENous, PRN, Marion A Rosa, IT PORTFOLIO MANAGER - ARCHITECTURAL DESIGNER [2] niCARdipine, 2.5-15 mg/hr [facility] Progress Note -- Attestation signed by Heather Morton DO at 07/31/2024 5:24 PM I reviewed the history, the documented findings, and performed a physical exam of the patient. I agree with Dr. Kim's assessment, and we discussed the management of the patient. See orders. Patient continues to do reasonably well without any new focal deficits. He does have a small subarachnoid hemorrhage. He is tentatively scheduled to undergo diagnostic cerebral arteriogram tomorrow. He will be made n.p.o. after midnight okay for meds. Appreciate input from neurocritical care. Will watch closely in the ICU. ICU Progress Note Name: Efraín Meredith : 1935(88 y.o.) Date: 07/31/24 Team: MICU Attending: Dr. Morton Subjective: Hospital Summary: 88 year-old with a PMHx of CAD, ICD, prior OH, hyperlipidemia, hypertension who presented to [facility] with several days of left arm and hand numbness along with slurred speech. Imaging demonstrated small right SAH. Interval Events: No acute overnight events. Upon evaluation, patient stated that he is feeling well and inquired when he might be able to leave the ICU. Denies known trauma, states that he often hits his head around the house. Scheduled Meds:Scheduled Meds[1] Continuous Infusions:Continuous Meds[2] Objective: Last Vitals: BP MAP 132/57 (07/31/24 0500) 79 (07/31/24 0500) Arterial BP MAP Temp 36.4 ?C (97.5 ?F) (07/31/24 0400) Pulse 75 (07/31/24 0500) Resp 22 (07/31/24 0500) SpO2 99 % (07/31/24 0500) Weight 68 kg (150 lb) (07/30/24 1008) BMI Body mass index is 24.21 kg/m?. I/O: 07/30 0700 - 07/31 0659 In: 500 [P.O.:500] Out: 1025 [Urine:1025] Ventilator: Oxygen Delivery: Invasive Lines / Tubes / Drains: Peripheral IV 07/29/24 Right Antecubital (Active) Number of days: 2 Peripheral IV 07/30/24 Left;Posterior Hand (Active) Number of days: 1 Central Line Indication: NA - patient does not have a central line Agarwal Indications: NA - patient does not have a Agarwal catheter Restraints: NA - patient is not restrained. Wounds: Constitutional: General Appearance [x]WDWN []Obese []Cachectic []Thin []Ill Eyes: Inspection of Pupils/Irises Pupils round and react: [x]Yes []No Sclera: []Icteric [x]Non-Icteric Inspection of Conjunctiva/Lids Conjunctiva: []Injected [x]Non-Injected Lids: [x]Intact []Lesion Present ENT/Mouth: External Inspection of ears/nose [x] Normal [] Scar/Lesion/Mass Inspection of teeth/lips/gums Dentition: [x][place] Teeth []Dentures Lips/Gums: []Intact []Lesion Present Mucosa: [][place] []Moist []Dry Neck: External Appearance Overall Appearance: [x]Normal []Lesion/Mass/Crepitus Present Trachea midline: [x]Yes []No Thyroid [x]Normal []Enlarged []Tender []Mass []Absent Respiratory: Respiratory effort []Labored [x]Non-Labored [] Mechanically-Ventilate d Auscultation [x]Clear []Crackles []Wheezes [][place] Cardiovascular: Auscultation Rate: [x]Regular []Irregular []Tachycardia []Bradycardia Rhythm: [x]Regular []Irregular Murmur: []Present [x]Absent Extremities Peripheral Edema: []Present [x]Absent Varicosities: []Present [x]Absent Gastrointestinal: Abdomen Palpation: [x]Soft []Firm []Tender []Non-Tender []Distended [x]Non-distended Mass: []Present [x]Absent Bowel Sounds: [x]Present []Absent Hernia: []Present []Absent Liver/Spleen: []Hepatosplenomegaly []Organomegaly Absent Musculoskeletal: Inspection of Digits and Nails Cyanosis: []Present [x]Absent Clubbing: []Present [x]Absent Ischemia: []Present [x]Absent Infection: []Present [x]Absent Extremities ORTEZ Equally: Except ([]RUE []RLE []LUE []LLE) Strength/Tone: Intact and Normal ([]RUE []RLE []LUE []LLE) Skin: Inspection [x]Normal []Rash []Lesion []Ulcer Palpation [x]Warm []Cool []Dry []Clammy []Nodules []Induration []Skin-tightening Cap-Refill: [x] <3 sec [] >3 seconds (delayed) Neurologic: GCS EYE: 4 - Opens spontaneously GCS MOTOR: 6 - Obeys commands for movement GCS VERBAL: 5 - Oriented to person, place, time Total GCS: 15 [x] Sensation grossly intact Psych: Mental Status Alert: [x]Yes [] No Oriented: []x0 []X1 []X2 [x]x3 Mood/Affect [x]Normal []Flat []Agitated []Depressed []Anxious []Calm []Sedated []NAD [facility] within last 24 hours- BMP: Recent Labs 07/29/24 1731 07/30/24 0259 07/31/24 0341 NA -- 138 137 K -- 4.1 4.1 CL -- 111* 110* CO2 -- 19* 18* BUN -- 16 14 CREATININE -- 1.00 0.98 CALCIUM -- 8.8 8.9 MG 1.9 -- 1.9 PHOS 3.0 -- 3.1 LFTs: Recent Labs 07/29/24 1755 07/30/24 0259 07/31/24 0341 AST -- 25 21 ALT -- 32 26 PROT -- 6.3* 6.6 ALBUMIN -- 3.4 3.7 BILITOT -- 1.1 0.9 BILIRUBINU Negative -- -- ALKPHOS (more content not included)... Normal [facility] BASIC METABOLIC PANELon 07-15 Anion gap [Moles/Vol] 8 mmol/L Normal 3-13 [facility] Comment on above: Performed By: #### L [id number] #### Milling Machine Operator Gear: MARY MOLINA ([id number]) [facility]) [address] [place] [address] Calcium [Mass/Vol] 8.8 mg/dL Normal 8.8-10.0 [facility] Comment on above: Performed By: #### L [id number] #### Milling Machine Operator Gear: MARY MOLINA ([id number]) [facility] ([facility]) [address] [place] [address] [place] Chloride [Moles/Vol] 111 mmol/L High 98-107 [facility] Comment on above: Performed By: #### L [id number] #### Milling Machine Operator Gear: MARY MOLINA ([id number]) [facility] ([facility]) [address] [place] [address] [place] CO2 [Moles/Vol] 19 mmol/L Low 23-31 [facility] Comment on above: Performed By: #### L [id number] #### Milling Machine Operator Gear: MARY MOLINA ([id number]) [facility] ([facility]) [address] [place] [address] [place] Creatinine [Mass/Vol] 1.00 mg/dL Normal 0.72-1.25 [facility] Comment on above: Performed By: #### L [id number] #### Milling Machine Operator Gear: MARY MOLINA ([id number]) [facility]) [address] [place] [address] [place] GLOMERULAR FILTRATION RATE ML/MIN/1.73 SQ M.PREDICTED 72.4 mL/min/1.73m*2 Normal >60.0 [facility] Comment on above: Result Comment: Calc ulation based on the Chronic Kidney Disease Epidemiology Collaboration (CKD-EPI) equation refit without adjustment for race Performed By: #### L [id number] #### Milling Machine Operator Gear: MARY MOLINA ([id number]) [facility]) [address] [place] [address] Glucose [Mass/Vol] 105 mg/dL Normal 82-115 [facility] Comment on above: Performed By: #### L [id number] #### Milling Machine Operator Gear: MARY MOLINA ([id number]) [facility]) [address] [place] [address] Potassium [Moles/Vol] 4.1 mmol/L Normal 3.5-5.1 [facility] Comment on above: Result Comment: [facility] potassium values may be up to 0.5 mmol/L lower than serum values. Performed By: #### L [id number] #### Milling Machine Operator Gear: MARY MOLINA ([id number]) [facility] ([facility]) [address] [place] [address] [place] Sodium [Moles/Vol] 138 mmol/L Normal 136-145 [facility] Comment on above: Performed By: #### L [id number] #### Milling Machine Operator Gear: MARY [id number]) [place] [address] [place] Urea nitrogen [Mass/Vol] 16 mg/dL Normal 9-23 [facility] Comment on above: Performed By: #### L [id number] #### Milling Machine Operator Gear: MARY [id number]) [facility]) [address] [place] [address] Basic metabolic 1998 panelon 07-30-2024 Anion gap [Moles/Vol] 8 mmol/L 3 - 13 mmol/L [facility] Calcium [Mass/Vol] 8.8 mg/dL 8.8 - 10. 0 mg/dL [facility] Chloride [Moles/Vol] 111 mmol/L High 98 - 10 7 mmol/L [facility] CO2 [Moles/Vol] 19 mmol/L Low 23 - 31 mmol/L [facility] Creatinine [Mass/Vol] 1 mg/dL 0.72 - 1.25 mg/dL [facility] GFR/1.73 sq M.predicted (S/P/Bld) [Vol rate/Area] 72.4 mL/min - PINF [facility] Comment on above: Calculation based on the Chronic Kidney Disease Epidemiology Collaboration (CKD-EPI) equation refit without adjustment for race Glucose [Mass/Vol] 105 mg/dL 82 - 115 mg/dL [facility] Potassium [Moles/Vol] 4.1 mmol/L 3.5 - 5.1 mmol/L [facility] Comment on above: Plasma potassium deb ues may be up to 0.5 mmol/L lower than serum values. Sodium [Moles/Vol] 138 mmol/L 136 - 145 mmol/L [facility] Urea nitrogen [Mass/Vol] 16 mg/dL 9 - 23 mg/dL [facility] CALCIUM, IONIZEDon 5 CALCIUM IONIZED 4.60 mg/dL Normal 4.30-5.20 [facility] Comment on above: Performed By: #### L [id number] ####Milling Machine Operator Gear: MARY MOLINA ([id number])[facility] ([facility])[address] [place] [address] PH, IONIZED CALCIUM 7.46 Normal 7.31-7.46 [facility] Comment on above: Performed By: #### L [id number] ####Milling Machine Operator Gear: MARY MOLINA ([id number])[facility] ([facility])[address] [place] [address] CBC W Auto Differential pane l (Bld)on 07-30-2024 Basophils (Bld) [#/Vol] 0.1 10*3/uL 0.0 - 0.2 10*3/uL [facility] Basophils/100 WBC (Bld) 0.7 % 0.0 - 2.0 % [facility] Eosinophils (Bld) [#/Vol] 0.2 10*3/uL 0.0 - 0.5 10*3/uL [facility] Eosinophils/100 WBC (Bld) 2 % 0.0 - 6.0 % [facility] Erythrocyte distribution width (RBC) [Ratio] 13.2 % 11.5 - 15.0 % [facility] Hematocrit (Bld) [Volume fraction] 38.1 % Low 40.0 - 52.0 % [facility] Hemoglobin (Bld) [Mass/Vol] 12.5 g/dL Low 13.0 - 18.0 g/dL [facility] Immature granulocytes (Bld) [#/Vol] 0.1 10*3/uL High NINF - 0.1 10*3/uL [facility] Immature granulocytes/100 WBC (Bld) 0.5 % 0.0 - 2.0 % [facility] Interpretation and review of laboratory results Abnormal [facility] Lymphocytes (Bld) [#/Vol] 4.1 10*3/uL 1.0 - 4.3 10*3/uL [facility] Lymphocytes/100 WBC (Bld) 40.9 % 15.0 - 45.0 % [facility] MCH (RBC) [Entitic mass] 28.7 pg 26.0 - 34.0 pg [facility] MCHC (RBC) [Mass/Vol] 32.8 % 30.5 - 36.0 % [facility] MCV (RBC) [Entitic vol] 87.4 fL 77.0 - 99.0 fL [facility] Monocytes (Bld) [#/Vol] 0.8 10*3/uL 0.0 - 0.9 10*3/uL [facility] Monocytes/100 WBC (Bld) 7.6 % 5.0 - 13.0 % [facility] Neutrophils (Bld) [#/Vol] 4.8 10*3/uL 1.8 - 7.5 10*3/uL [facility] Neutrophils/100 WBC (Bld) 48.3 % 38.0 - 82.0 % [facility] Nucleated RBC/100 WBC (Bld) [Ratio] 0 % [facility] Platelet mean volume (Bld) [Entitic vol] 10.9 fL 9.0 - 12.7 fL [facility] Platelets (Bld) [#/Vol] 189 10*3/uL 140 - 440 10*3/uL [facility] RBC (Bld) [#/Vol] 4.36 10*6/uL Low 4.40 - 5.9 0 10*6/uL [facility] WBC (Bld) [#/Vol] 9.9 10*3/uL 3.6 - 10.7 10*3/uL [facility] CBC WITH AUTO DIFFERENTIALon 07-30-2024 Basophils (Bld) [#/Vol] 0.1 10*3/uL Normal 0.0-0.2 [facility] Comment on above: Performed By: #### L AB20, LAB15, [id number], [id number] #### Milling Machine Operator Gear: MARY MOLINA ([id number]) [facility]) [address] [place] [address] Basophils/100 WBC (Bld) 0.7 % Normal 0.0-2.0 [facility] Comment on above: Performed By: #### L AB20, LAB15, [id number], [id number] #### Milling Machine Operator Gear: MARY MOLINA ([id number]) [facility]) [address] [place] [address] Eosinophils (Bld) [#/Vol] 0.2 10*3/uL Normal 0.0-0.5 [facility] Comment on above: Performed By: #### L AB20, LAB15, [id number], [id number] #### Milling Machine Operator Gear: MARY MOLINA ([id number]) [facility]) [address] [place] [address] Eosinophils/100 WBC (Bld) 2.0 % Normal 0.0-6.0 [facility] Comment on above: Performed By: #### L AB20, LAB15, [id number], [id number] #### Milling Machine Operator Gear: MARY MOLINA ([id number]) [facility]) [address] [place] [address] Erythrocyte distribution width (RBC) [Ratio] 13.2 % Normal 11.5-15.0 [facility] Comment on above: Performed By: #### L AB20, LAB15, UUG543, [id number] #### Milling Machine Operator Gear: MARY MOLINA ([id number]) [facility]) [address] [place] [address] Hematocrit (Bld) [Volume fraction] 38.1 % Low 40.0-52.0 [facility] Comment on above: Performed By: #### L AB20, LAB15, [id number], [id number] #### Milling Machine Operator Gear: MARY MOLINA ([id number]) [address] Hemoglobin (Bld) [Mass/Vol] 12.5 g/dL Low 13.0-18.0 [facility] Comment on above: Performed By: #### L AB20, LAB15, [id number], [id number] #### Milling Machine Operator Gear: MARY MOLINA ([id number]) [facility]) [address] [place] [address] IMMATURE GRANS % 0.5 % Normal 0.0-2.0 [facility] Comment on above: Performed By: #### L AB20, LAB15, FYL343, [id number] #### Milling Machine Operator Gear: MARY MOLINA ([id number]) [address] IMMATURE GRANS ABSOLUTE 0.1 10*3/uL High <0.1 [facility] Comment on above: Performed By: #### L AB20, LAB15, KHJ598, [id number] #### Milling Machine Operator Gear: MARY MOLINA ([id number]) [facility]) [address] [place] [address] Lymphocytes (Bld) [#/Vol] 4.1 10*3/uL Normal 1.0-4.3 [facility] Comment on above: Performed By: #### L AB20, LAB15, [id number], [id number] #### Milling Machine Operator Gear: MARY MOLINA ([id number]) [facility] ([facility]) [address] [place] [address] Lymphocytes/100 WBC (Bld) 40.9 % Normal 15.0-45.0 [facility] Comment on above: Performed By: #### L AB20, LAB15, [id number], [id number] #### Milling Machine Operator Gear: MARY MOLINA ([id number]) [facility]) [address] [place] [address] MCH (RBC) [Entitic mass] 28.7 pg Normal 26.0-34.0 [facility] Comment on above: Performed By: #### L AB20, LAB15, IOL596, [id number] #### Milling Machine Operator Gear: MARY MOLINA ([id number]) [facility]) [address] [place] [address] MCHC 32.8 % Normal 30.5-36.0 [facility] Comment on above: Performed By: #### L AB20, LAB15, SFV563, [id number] #### Milling Machine Operator Gear: MARY MOLINA ([id number]) [facility]) [address] [place] [address] MCV (RBC) [Entitic vol] 87.4 fL Normal 77.0-99.0 [facility] Comment on above: Performed By: #### L AB20, LAB15, YDF904, [id number] #### Milling Machine Operator Gear: MARY MOLINA ([id number]) [facility]) [address] [place] [address] Monocytes (Bld) [#/Vol] 0.8 10*3/uL Normal 0.0-0.9 [facility] Comment on above: Performed By: #### L AB20, LAB15, NGC558, KKM704 #### Milling Machine Operator Gear: MARY MOLINA ([id number]) [facility]) [address] [place] [address] Monocytes/100 WBC (Bld) 7.6 % Normal 5.0-13.0 [facility] Comment on above: Performed By: #### L AB20, LAB15, [id number], [id number] #### Milling Machine Operator Gear: MARY MOLINA ([id number]) [facility] ([facility]) [address] [place] [address] NEUTROPHILS ABSOLUTE 4.8 10*3/uL Normal 1.8-7.5 [facility] Comment on above: Performed By: #### L AB20, LAB15, [id number], [id number] #### Milling Machine Operator Gear: MARY MOLINA ([id number]) [facility] ([facility]) [address] [place] [address] Neutrophils/100 WBC (Bld) 48.3 % Normal 38.0-82.0 [facility] Comment on above: Performed By: #### L AB20, LAB15, HPK152, [id number] #### Milling Machine Operator Gear: MARY MOLINA ([id number]) [facility] ([facility]) [address] [place] [address] NRBC 0.0 /100 WBCs Normal 0.0-2.0 [facility] Comment on above: Performed By: #### L AB20, LAB15, DKJ781, AMO081 #### Milling Machine Operator Gear: MARY MOLINA ([id number]) [facility] ([facility]) [address] [place] [address] Platelet mean volume (Bld) [Entitic vol] 10.9 fL Normal 9.0-12.7 [facility] Comment on above: Performed By: #### L AB20, LAB15, PHI072, [id number] #### Milling Machine Operator Gear: MARY MOLINA ([id number]) [facility] ([facility]) [address] [place] [address] Platelets (Bld) [#/Vol] 189 10*3/uL Normal 140-440 [facility] Comment on above: Performed By: #### L AB20, LAB15, KYT119, [id number] #### Milling Machine Operator Gear: MARY MOLINA ([id number]) [facility] ([facility]) [address] [place] [address] RBC (Bld) [#/Vol] 4.36 10*6/uL Low 4.40-5.90 [facility] Comment on above: Performed By: #### L AB20, LAB15, MHL104, HXL346 #### Milling Machine Operator Gear: MARY MOLINA ([id number]) [facility] ([facility]) [address] [place] [address] WBC (Bld) [#/Vol] 9.9 10*3/uL Normal 3.6-10.7 [facility] Comment on above: Performed By: #### L AB20, LAB15, [id number], [id number] #### Milling Machine Operator Gear: MARY JOSEPHDAYANARA ([id number]) [facility] ([facility]) [address] [place] [address] CT HEAD WO IV CONTRASTon CT HEAD WO IV CONTRAST Patient Name: EFRAÍN MAYNARD : 1935 Exam Date/Time: 07/30/2024 05:03 Procedure: CT HEAD WO IV CONTRAST Ordering Provider: LEE BETHANY Reason For Exam: Stroke, follow up CT HEAD WITHOUT CONTRAST CLINICAL HISTORY: Stroke, follow up COMPARISON: 07/29/2024 TECHNIQUE: Helical CT of the brain without contrast. Dose reduction was employed with automated exposure control. FINDINGS: Acute Findings: Small amount of acute subarachnoid hemorrhage along the right central sulcus is unchanged. There is no new acute hemorrhage. Chronic Changes: Scattered patchy foci of white matter hypoattenuation, most likely mild chronic microvascular ischemic changes. Ventricles and sulci: Moderate generalized brain parenchymal volume loss with proportionate ventricular enlargement. Other: The skull, included paranasal sinuses and orbits are normal. IMPRESSION: Stable small volume acute subarachnoid hemorrhage. No new acute findings Report Dictated on Electronically Signed By: Sterling Brandt MD Electronically Signed Date/Time: 07/30/2024 8:04 AM EDT Normal [facility] CT Head WO contraston 2024 Stable small volume acute subarachnoid hemorrhage. No new acute findings Report Dictated on Electronically Signed By: Sterling Brandt MD Electronically Signed Date/Time: 07/30/2024 8:04 AM EDT [facility] Patient Name: EFRAÍN MEREDITH : 1935 Exam Date/Time: 07/30/2024 05:03 Procedure: CT HEAD WO IV CONTRAST Ordering Provider: LEE BETHANY Reason For Exam: Stroke, follow up CT HEAD WITHOUT CONTRAST CLINICAL HISTORY: Stroke, follow up COMPARISON: 07/29/2024 TECHNIQUE: Helical CT of the brain without contrast. Dose reduction was employed with automated exposure control. FINDINGS: Acute Findings: Small amount of acute subarachnoid hemorrhage along the right central sulcus is unchanged. There is no new acute hemorrhage. Chronic Changes: Scattered patchy foci of white matter hypoattenuation, most likely mild chronic microvascular ischemic changes. Ventricles and sulci: Moderate generalized brain parenchymal volume loss with proportionate ventricular enlargement. Other: The skull, included paranasal sinuses and orbits are normal. [facility] Sterling Brandt M D - 07/30/2024 Patient Name: EFRAÍN MEREDITH : 1935 Exam Date/Time: 07/30/2024 05:03 Procedure: CT HEAD WO IV CONTRAST Ordering Provider: LEE BETHANY Reason For Exam: Stroke, follow up CT HEAD WITHOUT CONTRAST CLINICAL HISTORY: Stroke, follow up COMPARISON: 07/29/2024 TECHNIQUE: Helical CT of the brain without contrast. Dose reduction was employed with automated exposure control. FINDINGS: Acute Findings: Small amount of acute subarachnoid hemorrhage along the right central sulcus is unchanged. There is no new acute hemorrhage. Chronic Changes: Scattered patchy foci of white matter hypoattenuation, most likely mild chronic microvascular ischemic changes. Ventricles and sulci: Moderate generalized brain parenchymal volume loss with proportionate ventricular enlargement. Other: The skull, included paranasal sinuses and orbits are normal. IMPRESSION: Stable small volume acute subarachnoid hemorrhage. No new acute findings Report Dictated on Electronically Signed By: Sterling Brandt MD Electronically Signed Date/Time: 07/30/2024 8:04 AM EDT [facility] Radiology Study observation (narrative) [facility] alth CT Head WO contrastOrdered B y: Sterling Brandt on 07-30-2024 [facility] [employer] Work Phone: Calcium.ionized [Moles/Vol]O rdered By: Heather Johnson on 07-30-2024 Calcium.ionized (Bld) [Moles/Vol] 4.6 mg/dL 4.30 - 5.20 mg/dL [facility] Interpretation and review of laboratory results Normal [facility] [employer] PH, IONIZED CALCIUM 7.46 7.31 - 7.46 [facility] [employer] [facility] Consulton 07-30-2024 Consult Consults History Of Present Illness Duy Meredith is a 88 y.o. male presenting to outside hospital with several days of left arm and hand numbness and slurred speech. Imaging obtained during evaluation identified right small right SAH. No history of trauma. 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 Surgical History He has a past surgical history that includes Cardiac defibrillator placement; Cardiac procedure; and Coronary angioplasty. Social History He reports that he has never smoked. He has never used smokeless tobacco. He reports current alcohol use. He reports that he does not use drugs. Allergies Patient has no known allergies. Medications Prescriptions Prior to Admission[1] Review of Systems Constitutional: Positive for activity change. Neurological: Positive for numbness and headaches. All other systems reviewed and are negative. Neurological Exam Mental Status Oriented to person, place, time and situation. Speech is normal. Language is fluent with no aphasia. Attention and concentration are normal. Cranial Nerves CN II: Visual acuity is normal. Visual bass full to confrontation. CN III, IV, : Extraocular movements intact bilaterally. Normal lids and orbits bilaterally. Pupils equal round and reactive to light bilaterally. CN V: Facial sensation is normal. CN VII: Full and symmetric facial movement. CN VIII: Hearing is normal. CN IX, X: Palate elevates symmetrically. Normal gag reflex. CN XI: Shoulder shrug strength is normal. CN XII: Tongue midline without atrophy or fasciculations. Motor The following abnormal movements were seen: Physical Exam Eyes: General: Lids are normal. Extraocular Movements: Extraocular movements intact. Pupils: Pupils are equal, round, and reactive to light. Cardiovascular: Rate and Rhythm: Regular rhythm. Comments: Pacer Psychiatric: Speech: Speech normal. Last Recorded Vitals Blood pressure 129/64, pulse 73, temperature 36.6 ?C (97.8 ?F), temperature source Temporal, resp. rate 18, height 1.676 m (5' 6), weight 68 kg (150 lb), SpO2 97%. Relevant Results FINDINGS: Acute Findings: Small amount of acute subarachnoid hemorrhage along the right central sulcus is unchanged. There is no new acute hemorrhage. Chronic Changes: Scattered patchy foci of white matter hypoattenuation, most likely mild chronic microvascular ischemic changes. Ventricles and sulci: Moderate generalized brain parenchymal volume loss with proportionate ventricular enlargement. Other: The skull, included paranasal sinuses and orbits are normal. IMPRESSION: Stable small volume acute subarachnoid hemorrhage. No new acute findings Assessment/Plan Principal Problem: Intracranial hemorrhage (HCC) SAH of unclear etiology Plan: MRI pending. Will follow for results. If no clear etiology of SAH identified can plan for diagnostic cerebral angiogram for further evaluation of any occult cerebral vascular abnormality. Further recommendations pending imaging. Pt discussed with Dr. Altman [1] Medications Prior to Admission Medication Sig Dispense Refill Last Dose/Taking aspirin 81 MG EC tablet Take 81 mg by mouth daily. carvedilol (Coreg) 6.25 MG tablet Take 1 tablet (6.25 mg) by mouth 2 times daily (with meals). 180 tablet 1 carvedilol (Coreg) 6.25 MG tablet Take 1 tablet (6.25 mg) by mouth 2 times daily (with meals). 180 tablet 0 finasteride (Proscar) 5 MG tablet Take 5 mg by mouth daily. losartan (Cozaar) 50 MG tablet Take 1 tablet (50 mg) by mouth daily. 90 tablet 1 losartan (Cozaar) 50 MG tablet Take 1 tablet (50 mg) by mouth daily. 90 tablet 3 nitroglycerin (Nitrostat) 0.[address] 0.4 mg under the tongue as needed. simvastatin (Zocor) 40 MG tablet Take 1 tablet (40 mg) by mouth Nightly. 90 tablet 1 simvastatin (Zocor) 40 MG tablet Take 1 tablet (40 mg) by mouth Nightly. 90 tablet 0 spironolactone (Aldactone) 25 MG tablet Take 0.5 tablets (12.5 mg) by mouth daily. 45 tablet 1 spironolactone (Aldactone) 25 MG tablet Take 0.5 tablets (12.5 mg) by mouth daily. 45 tablet 1 tamsulosin (Flomax) 0.4 MG 24 hr capsule Take 0.4 mg by mouth daily. [facility] Consult Palliative Care Initial Consult Chief Complaint: Efraín Meredith is a 88 y.o. male with chief complaint of CVA. Palliative Care will follow peripherally, please contact on-call provider for urgent needs Assessment/Plan Goals of care Efraín Meredith retains capacity for medical decision-making -legal surrogate decision maker is , Lily ( ) -pt having rapid improvement, instructions to follow up with outpatient palliative clinic upon discharge -goals of care include: 1) improve symptoms 2) return home R intraparenchymal hemorrhage H/o TIA With concurrent intermittent LUE symptoms, although since admission states have continued to improve. Denies any episodes of LUE numbness/weakness today. - Given further history from pt/, may have occurred incident to jump from tractor in which pt landed on their feet but had a precipitous drop to landing. - They also note recurring minor head trauma unrelated to falls (regularly bumping into things with his head) - Mgmt per neurocrit; awaiting MRI, EEG - Tolerating regular diet without issue - PT/OT recommending discharge home with no further follow-up; pt was independent on ADLs before admission and looks to be independent thereafter. CAD s/p stenting for OH HFrEF s/p ICD - Has ICD. - Home meds per primary Palliative Care Encounter -Code Status: Full Code - Ongoing counseling of patient and family regarding diagnoses of CHF and Stroke, Determining prognosis in serious illness of CHF and Stroke - assessed patient or surrogate's understanding of medical condition, addressed goals of care pertinent to the condition and communicated this to the medical team Discharge planning: Not ready for discharge due to ongoing medical work-up/critical illness Patient meets criteria for general inpatient hospice care: No Palliative Care IDT members involved: None Discussed the plan of care with the other interdisciplinary team (IDT) members of the Palliative Care and Hospice teams and Patient, Family, and Floor Nurse. Subjective: History: Efraín Meredith is a 88 y.o. male who presented to the ED with 5 days of intermittent LUE numbness. H/o HTN, HLD, OH s/p stenting, TIA, HFrEF s/p ICD (last available EF 25%), BPH. 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 also reported slurred speech, so had him come in for evaluation at OSH. VSS but imaging showing intraparenchymal hemorrhage without midline shift. Was then transferred to [facility] for neurocritical care. Arrived here 07/29 in the afternoon, exam notable for NIH 4 (drift, ataxia of LUE, dysarthria, LUQ visual deficit. Imaging was repeated as outside imaging unavailable. denies inciting fall, but both she and pt state he was hopping out of his tractor and had a hard landing on his feet in the days prior to admission. Palliative is consulted for GOC clarification; currently listed as full code. Subjective/Events Pt seen at bedside, also witnessed ambulating with PT around the unit and doing it well. Both pt and corroborated above story and note he has improved significantly from admission in terms of arm sensation/strength. Pain Assessment No pain Palliative Care Assessments: Goals of care: Continue Current Management, Preserve [place]/Autonomy/ Control, Improve uncontrolled symptoms, and Remain at Home Advanced Directives: No Known Advance Directive Functional Assessment: PPS 70% amb reduced; can't do normal work/some disease; full self care; normal or reduced intake; full LOC Prognosis: depends upon goals of care and uncertain at this time Spiritual Assessment: No spiritual distress identified Bereavement and Grief: To Be Determined PDMP/OARRS Reviewed: Yes-reviewed Social history: Marital status: Children: 1 adult child(ladonna) Living status: with spouse Work history: unknown [place] status: No Anglican laureano: Christianity ROS: See palliative care ROS/ESAS below; All other systems were reviewed and are negative. Mccoy Symptom Assessment Score Mccoy Score Pain Score (if non-verbal, add .FLACC below) 0 Tiredness Score 0 Nausea Score 0 Depression Score 0 Anxiety Score 0 Drowsiness Score 0 Anorexia Score (0= eating well, 10= not eating) 0 Wellbeing Score (10= worst sense of well-being) 0 Constipation 0 Dyspnea Score (0= no shortness of breath) 0 Family Meeting: Participants: patient and spouse Family meeting was held to discuss:Discharge Plan Medical History[1] Surgical History[2] Family History[3] Unable to obtain family history due to N/A- family history available Allergies[4] Objective: BP 115/62 Pulse 88 Temp 36.6 ?C (97.8 ?F) (Temporal) Resp 24 SpO2 94% Physical Exam Vitals reviewed. Constitutional: General: He is not in acute distress. Appearance: He is not ill-appearing or toxic-appearing. HENT: Head: Normocephalic. Comments: Scarring and pa (more content not included)... [facility] Consult Acknowledges case management consult, will follow for discharge planning. [facility] Consult CONSULT NOTE: NEUROCRITICAL CARE Patient Name: Efraín Meredith Patient : 1935 Date of Admission: 07/29/2024 HPI: This is a 88 y.o. year old R handed man with a PMH of HTN, HLD, CAD s/p stent, HFrEF (25%), s/p ICD, TIA who presented to [facility] from OSH on 07/29 with a chief complaint of intermittent slurred speech, LUE numbness x5 days. CT head with R cortical SAH. Transferred to [facility] T2. CT head repeated, stable. CTA head/neck without vascular abnormality. Denies any significant recent trauma. states he bumps his head a lot but no LOC. Medical History[1] Surgical History[2] Family History[3] Allergies[4] Prior to Admission medications Medication Sig Start Date End Date Taking? Authorizing Provider aspirin 81 MG EC tablet Take 81 mg by mouth daily. Historical Provider, carvedilol (Coreg) 6.25 MG tablet Take 1 tablet (6.25 mg) by mouth 2 times daily (with meals). 02/23/24 Chantel Huntley APRN - [facility] carvedilol (Coreg) 6.25 MG tablet Take 1 tablet (6.25 mg) by mouth 2 times daily (with meals). 06/04/24 Zhou Calle MD finasteride (Proscar) 5 MG tablet Take 5 mg by mouth daily. 03/14/24 Historical Provider, losartan (Cozaar) 50 MG tablet Take 1 tablet (50 mg) by mouth daily. 02/23/24 YVETTE Redmond CNP losartan (Cozaar) 50 MG tablet Take 1 tablet (50 mg) by mouth daily. 06/08/24 YVETTE Siddiqui CNP nitroglycerin (Nitrostat) 0.[address] 0.4 mg under the tongue as needed. 11/19/16 Historical Provider, simvastatin (Zocor) 40 MG tablet Take 1 tablet (40 mg) by mouth Nightly. 02/23/24 YVETTE Redmond CNP simvastatin (Zocor) 40 MG tablet Take 1 tablet (40 mg) by mouth Nightly. 06/04/24 Zhou Calle MD spironolactone (Aldactone) 25 MG tablet Take 0.5 tablets (12.5 mg) by mouth daily. 02/23/24 YVETTE Redmond CNP spironolactone (Aldactone) 25 MG tablet Take 0.5 tablets (12.5 mg) by mouth daily. 06/08/24 YVETTE Siddiqui CNP tamsulosin (Flomax) 0.4 MG 24 hr capsule Take 0.4 mg by mouth daily. 03/20/24 Historical Provider, Review of Systems + LUE numbness at times Physical Examination: Patient Vitals for the past 8 hrs: BP Temp Temp src Pulse Resp SpO2 07/30/24 0746 -- 36.6 ?C (97.8 ?F) Temporal 69 22 93 % 07/30/24 0700 130/71 -- -- 74 19 94 % 07/30/24 0600 101/68 -- -- 64 19 95 % 07/30/24 0500 117/73 -- -- 76 17 95 % 07/30/24 0400 113/68 36.2 ?C (97.1 ?F) Temporal 69 (!) 26 95 % 07/30/24 0300 101/67 -- -- 64 21 93 % 07/30/24 0203 117/63 -- -- 70 17 94 % 07/30/24 0200 -- -- -- 74 23 98 % 07/30/24 0100 109/68 -- -- 70 15 96 % I/O last 3 completed shifts: In: 850.2 [I.V.:850.2] Out: 1650 [Urine:1650] General Physical Examination: General: Awake HEENT:Normocephalic, atraumaticl CV: S1+S2, RRR, no MRG. Pulm:CTA b/l, unlabored Abdomen: Soft NT/ND. BS + Skin: Intact without ulcers, breakdowns or discoloration Extremities: normal with no edema or cyanosis Orthopedic limitation; No Pulses: Intact peripherally Carotid auscultation :No bruits Neurological Examination: Higher Functions: Mental Status Exam: Level of Alertness:Awake Orientation: Normal to self, time, place Memory: Normal Fund of Knowledge: Normal Language: Normal Dysarthria not present Cranial Nerves: -II Visual acuity: normal -II Visual bass: normal -III Pupils (~ 3 mm OD, 3 mm OU) equal, round, reactive to light -III-IV- Extraocular Movements: intact -Nystagmus not present -Saccades and pursuits normal -V Facial sensation: intact Corneal's Intact bilateral -VII Facial strength: intact -VIII Hearing: intact -IX-X- Gag reflex present -X Palate:intact -XI Shoulder shrug: intact -XII Tongue movement: normal Funduscopic Exam: normal, no edema or exudates both eyes Motor Examination: Tone after evaluation of 4 limbs, the following findings applied: Normal -Bulk: normal -Muscle Stretchafter evaluation of all limbs, and axial musculature the following findings applied: Drift: absent . -Reflexes: after evaluation of 4 limbs, the following findings applied ; normal all limbs -Plantar responce: Flexor bilaterally Sensory Intact to light touch, pain / temperature, proprioception, Coordination: Arms Normal finger to nose Legs Intact heel knee tena testing Tremors not present Gait abnormal, patient unable to walk due to acute circumstances / bedrest / safety concerns NIHSS 0 Cardiac testing: EKG: Sinus rhythm Inferior infarct, old Abnormal lateral Q waves Probable anterior infarct, age indeterminate Radiology Personal review: CT Head 07/29/24: Subarachnoid hemorrhage within the superior right frontal lobe, just anterior to the central sulcus. CT Head 07/30/24: Stable small volume acute subarachnoid hemorrhage. No new acute findings CTA head/neck 07/29/24: The intracranial right vertebral artery is faintly opacified and only a few thin and diminut (more content not included)... Normal [facility] ECG 12-LEADon 07-30-2024 ECG 12-LEAD IMPRESSION: Sinus rhythm Inferior infarct, old Abnormal lateral Q waves Probable anterior infarct, age indeterminate No previous ECG available for comparison Electronically Signed On 07-30-2024 11:22:24 EDT by Joey Charles Normal [facility] HEPATIC FUNCTION PANELon Albumin [Mass/Vol] 3.4 g/dL Normal 3.4-4.8 [facility] Comment on above: Performed By: #### L [id number] #### Milling Machine Operator Gear: MARY MOLINA ([id number]) [facility]) [address] [place] [address] ALP [Catalytic activity/Vol] 68 U/L Normal 40-150 [facility] Comment on above: Performed By: #### L [id number] #### Milling Machine Operator Gear: MARY MOLINA ([id number]) [facility] ([facility]) [address] [place] [address] ALT [Catalytic activity/Vol] 32 U/L Normal <40 [facility] Comment on above: Performed By: #### L [id number] #### Milling Machine Operator Gear: MARY MOLINA ([id number]) [facility]) [address] [place] [address] AST [Catalytic activity/Vol] 25 U/L Normal <34 [facility] Comment on above: Performed By: #### L [id number] #### Milling Machine Operator Gear: MARY MOLINA ([id number]) [facility] ([facility]) [address] [place] [address] Bilirubin [Mass/Vol] 1.1 mg/dL Normal <1.2 [facility] Comment on above: Performed By: #### L [id number] #### Milling Machine Operator Gear: MARY MOLINA ([id number]) [facility]) [address] [place] [address] Bilirubin.indirect [Mass/Vol] 0.4 mg/dL Normal <0.5 [facility] Comment on above: Performed By: #### L [id number] #### Milling Machine Operator Gear: MARY MOLINA ([id number]) [facility]) [address] [place] [address] Protein [Mass/Vol] 6.3 g/dL Low 6.4-8.3 [facility] Comment on above: Result Comment: Seru m protein values are higher than plasma values. Samples from recumbent persons are lower by up to 0.5 g/dL as compared to ambulatory persons. After 60 years values are lower by up to 0.2 g/dL. Performed By: #### L [id number] #### Milling Machine Operator Gear: MARY MOLINA ([id number]) [facility] ([facility]) [address] [place] [address] Hepatic function 2000 panelo n 07-30-2024 Albumin [Mass/Vol] 3.4 g/dL 3.4 - 4.8 g/dL [facility] [employer] ALP [Catalytic activity/Vol] 68 U/L 40 - 150 U/L [facility] [employer] ALT [Catalytic activity/Vol] 32 U/L [facility] - 40 U/L [facility] [employer] AST [Catalytic activity/Vol] 25 U/L [facility] - 34 U/L [facility] [employer] Bilirubin [Mass/Vol] 1.1 mg/dL [facility] - 1.2 mg/dL [facility] Bilirubin.conjugated [Mass/Vol] 0.4 mg/dL [facility] - 0.5 mg/dL [facility] [employer] Protein [Mass/Vol] 6.3 g/dL Low 6.4 - 8.3 g/dL [facility] [employer] Comment on above: Serum protein values are higher than plasma values. Samples from recumbent persons are lower by up to 0.5 g/dL as compared to ambulatory persons. After 60 years values are lower by up to 0.2 g/dL. Laboratory - Coagulationon 0 07-30-2024 aPTT Coag (PPP) [Time] 23.9 s 20.0 - 30.5 s [facility] INR Coag (PPP) [Relative time] 1.1 {INR} 0.9 - 1.1 [facility] Comment on above: Recommended Anticoag ulant Therapy: SEE BELOW ----- INR of 2.0 - 3.0 : - Prophylaxis of Venous Thrombosis (high-risk surgery) - Treatment of Venous Thrombosis - Treatment of Pulmonary Embolism (Includes tissue heart valves, Acute Myocardial Infarction to prevent systemic embolism, Valvular Heart Disease, and Atrial Fibrillation) ----- INR of 2.5 - 3.5 : - Mechanical Prosthetic Valves (high risk) - If oral anticoagulant therapy is used to prevent Myocardial Infarction PT Coag (Bld) [Time] 11.2 s 9.0 - 12.0 s [facility] MR Brain WO and W contrast I Von 07-30-2024 Patient Name: EFRAÍN MEREDITH : 1935 [facility]#: [id number] Exam Date/Time: 07/30/2024 15:20 Procedure: MR BRAIN W AND WO CONTRAST Ordering Provider: LEE BETHANY Reason For Exam: Stroke, follow up MRI BRAIN WITHOUT AND WITH CONTRAST MRV HEAD WITH AND WITHOUT CONTRAST INDICATIONS: Intracranial hemorrhage COMPARISON: None TECHNIQUE: 1. Multiplanar, multisequence MRI of the brain was performed without and with intravenous gadolinium contrast. 2. 2-D gakl-zj-glamav MRV of the head with and without contrast. FINDINGS: MRI BRAIN: Acute findings: There is a small amount of acute subarachnoid hemorrhage along the right central sulcus with hyperintensity on T1 and FLAIR, and susceptibility artifact. No other sites of acute hemorrhage are identified. There is no evidence of an acute infarct. Mild subcortical FLAIR hyperintensity in the lateral aspect of the right parietal lobe is most likely chronic. Mass: None. No abnormal brain parenchymal or leptomeningeal enhancement. Parenchyma/White Matter: Mild susceptibility artifact along the peel surfaces of the right parietal and occipital lobes, consistent with hemosiderosis. There is a remote cortical infarct in the left superior cerebellum and mild chronic small vessel ischemic changes are present in the deep supratentorial white matter bilaterally. Ventricles and sulci: Moderate generalized brain parenchymal volume loss with proportionate ventricular enlargement. Skull base: Normal size and morphology of the pituitary gland. No suprasellar mass. Normal position of the cerebellar tonsils. Vessels: The major intracranial flow voids are preserved. Extracranial structures: Bilateral ocular lens replacements; otherwise, the orbits are unremarkable. No extracranial soft tissue abnormalities. Sinuses/mastoids: Clear Bones: No pathologic marrow infiltration. MRV HEAD: The superior and inferior sagittal sinuses, internal cerebral veins, basal veins of Stacy, vein of Warner, straight sinus, transverse and sigmoid sinuses are widely patent. There is no evidence of dural venous sinus stenosis or thrombosis. [facility]IOLOGY [facility] Sterling Brandt M D - 07/30/2024 Patient Name: EFRAÍN MEREDITH : 1935 [facility]#: [id number] Exam Date/Time: 07/30/2024 15:20 Procedure: MR BRAIN W AND WO CONTRAST Ordering Provider: LEE BETHANY Reason For Exam: Stroke, follow up MRI BRAIN WITHOUT AND WITH CONTRAST MRV HEAD WITH AND WITHOUT CONTRAST INDICATIONS: Intracranial hemorrhage COMPARISON: None TECHNIQUE: 1. Multiplanar, multisequence MRI of the brain was performed without and with intravenous gadolinium contrast. 2. 2-D baby-fs-gwtqsp MRV of the head with and without contrast. FINDINGS: MRI BRAIN: Acute findings: There is a small amount of acute subarachnoid hemorrhage along the right central sulcus with hyperintensity on T1 and FLAIR, and susceptibility artifact. No other sites of acute hemorrhage are identified. There is no evidence of an acute infarct. Mild subcortical FLAIR hyperintensity in the lateral aspect of the right parietal lobe is most likely chronic. Mass: None. No abnormal brain parenchymal or leptomeningeal enhancement. Parenchyma/White Matter: Mild susceptibility artifact along the peel surfaces of the right parietal and occipital lobes, consistent with hemosiderosis. There is a remote cortical infarct in the left superior cerebellum and mild chronic small vessel ischemic changes are present in the deep supratentorial white matter bilaterally. Ventricles and sulci: Moderate generalized brain parenchymal volume loss with proportionate ventricular enlargement. Skull base: Normal size and morphology of the pituitary gland. No suprasellar mass. Normal position of the cerebellar tonsils. Vessels: The major intracranial flow voids are preserved. Extracranial structures: Bilateral ocular lens replacements; otherwise, the orbits are unremarkable. No extracranial soft tissue abnormalities. Sinuses/mastoids: Clear Bones: No pathologic marrow infiltration. MRV HEAD: The superior and inferior sagittal sinuses, internal cerebral veins, basal veins of Stacy, vein of Warner, straight sinus, transverse and sigmoid sinuses are widely patent. There is no evidence of dural venous sinus stenosis or thrombosis. IMPRESSION: 1. Negative for dural venous sinus thrombosis. 2. Stable subarachnoid hemorrhage along the right central sulcus. No other acute intracranial abnormalities. 3. 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 Report Dictated on Electronically Signed By: Sterling Brandt MD Electronically Signed Date/Time: 07/30/2024 4:10 PM EDT [facility] Radiology Study observation (narrative) [facility] alth MRA Head vessels WO and W co ntrast [place] 07-30-2024 Patient Name: EFRA[facility]N [facility]EDITH [facility] 1935 [id number] Exam Date/Time: 07/30/2024 15:22 Procedure: MRV HEAD W AND WO IV CONTRAST Ordering Provider: LEE BETHANY Reason For Exam: Stroke follow-up MRI BRAIN WITHOUT AND WITH CONTRAST MRV HEAD WITH AND WITHOUT CONTRAST INDICATIONS: Intracranial hemorrhage COMPARISON: None TECHNIQUE: 1. Multiplanar, multisequence MRI of the brain was performed without and with intravenous gadolinium contrast. 2. 2-D wgst-us-ovubor MRV of the head with and without contrast. FINDINGS: MRI BRAIN: Acute findings: There is a small amount of acute subarachnoid hemorrhage along the right central sulcus with hyperintensity on T1 and FLAIR, and susceptibility artifact. No other sites of acute hemorrhage are identified. There is no evidence of an acute infarct. Mild subcortical FLAIR hyperintensity in the lateral aspect of the right parietal lobe is most likely chronic. Mass: None. No abnormal brain parenchymal or leptomeningeal enhancement. Parenchyma/White Matter: Mild susceptibility artifact along the peel surfaces of the right parietal and occipital lobes, consistent with hemosiderosis. There is a remote cortical infarct in the left superior cerebellum and mild chronic small vessel ischemic changes are present in the deep supratentorial white matter bilaterally. Ventricles and sulci: Moderate generalized brain parenchymal volume loss with proportionate ventricular enlargement. Skull base: Normal size and morphology of the pituitary gland. No suprasellar mass. Normal position of the cerebellar tonsils. Vessels: The major intracranial flow voids are preserved. Extracranial structures: Bilateral ocular lens replacements; otherwise, the orbits are unremarkable. No extracranial soft tissue abnormalities. Sinuses/mastoids: Clear Bones: No pathologic marrow infiltration. MRV HEAD: The superior and inferior sagittal sinuses, internal cerebral veins, basal veins of Stacy, vein of Warner, straight sinus, transverse and sigmoid sinuses are widely patent. There is no evidence of dural venous sinus stenosis or thrombosis. [facility] Sterling Brandt M D - 07/30/2024 Patient Name: EFRAÍN MEREDITH : 1935 [id number] Exam Date/Time: 07/30/2024 15:22 Procedure: MRV HEAD W AND WO IV CONTRAST Ordering Provider: ELE BETHANY Reason For Exam: Stroke follow-up MRI BRAIN WITHOUT AND WITH CONTRAST MRV HEAD WITH AND WITHOUT CONTRAST INDICATIONS: Intracranial hemorrhage COMPARISON: None TECHNIQUE: 1. Multiplanar, multisequence MRI of the brain was performed without and with intravenous gadolinium contrast. 2. 2-D oylf-oy-wznvsd MRV of the head with and without contrast. FINDINGS: MRI BRAIN: Acute findings: There is a small amount of acute subarachnoid hemorrhage along the right central sulcus with hyperintensity on T1 and FLAIR, and susceptibility artifact. No other sites of acute hemorrhage are identified. There is no evidence of an acute infarct. Mild subcortical FLAIR hyperintensity in the lateral aspect of the right parietal lobe is most likely chronic. Mass: None. No abnormal brain parenchymal or leptomeningeal enhancement. Parenchyma/White Matter: Mild susceptibility artifact along the peel surfaces of the right parietal and occipital lobes, consistent with hemosiderosis. There is a remote cortical infarct in the left superior cerebellum and mild chronic small vessel ischemic changes are present in the deep supratentorial white matter bilaterally. Ventricles and sulci: Moderate generalized brain parenchymal volume loss with proportionate ventricular enlargement. Skull base: Normal size and morphology of the pituitary gland. No suprasellar mass. Normal position of the cerebellar tonsils. Vessels: The major intracranial flow voids are preserved. Extracranial structures: Bilateral ocular lens replacements; otherwise, the orbits are unremarkable. No extracranial soft tissue abnormalities. Sinuses/mastoids: Clear Bones: No pathologic marrow infiltration. MRV HEAD: The superior and inferior sagittal sinuses, internal cerebral veins, basal veins of Stacy, vein of Warner, straight sinus, transverse and sigmoid sinuses are widely patent. There is no evidence of dural venous sinus stenosis or thrombosis. IMPRESSION: 1. Negative for dural venous sinus thrombosis. 2. Stable subarachnoid hemorrhage along the right central sulcus. No other acute intracranial abnormalities. 3. 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 Report Dictated on Electronically Signed By: Sterling Brandt MD Electronically Signed Date/Time: 07/30/2024 4:10 PM EDT [facility] Radiology Study observation (narrative) [facility] No Panel Informationon 07-30 1. Negative for dura l venous sinus thrombosis. 2. Stable subarachnoid hemorrhage along the right central sulcus. No other acute intracranial abnormalities. 3. 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 Report Dictated on Electronically Signed By: Sterling Brandt MD Electronically Signed Date/Time: 07/30/2024 4:10 PM EDT [facility] Sinus rhythm Inferior infarct, old Abnormal lateral Q waves Probable anterior infarct, age indeterminate No previous ECG available for comparison Electronically Signed On 07-30-2024 11:22:24 EDT by Joey Charles Joey Freeman MD - 07/30/2024 IMPRESSION: Sinus rhythm Inferior infarct, old Abnormal lateral Q waves Probable anterior infarct, age indeterminate No previous ECG available for comparison Electronically Signed On 07-30-2024 11:22:24 EDT by Joey Charles [facility] Interpretation and review of laboratory results Abnormal [facility] Interpretation and review of laboratory results Normal [facility] No Panel InformationOrdered By: Joey Charles on 07-30-2024 P [place] 65 degrees [facility] Work Phone: [place] Interval 206 ms [facility] Work Phone: QRS [place] -67 degrees [facility] Work Phone: QRSD Interval 109 ms [facility] Work Phone: QT Interval 429 ms [facility] Work Phone: QTC Interval 456 ms [facility] [employer] Work Phone: T Wave [place] 145 degrees [facility] [employer] Work Phone: [facility] [employer] Work Phone: PROTIME AND APTTon 5 aPTT Coag (Bld) [Time] 23.9 s Normal 20.0-30.5 [facility] Comment on above: Performed By: #### L AB20, LAB15, [id number], [id number] #### Milling Machine Operator Gear: MARY MOLINA ([id number]) [facility] [employer] SecurityD[facility]) [address] [place] [address] INR Coag (PPP) [Relative time] 1.1 {INR} Normal 0.9-1.1 [facility] Comment on above: Result Comment: Bryon mmended Anticoagulant Therapy: SEE BELOW ----- INR of 2.0 - 3.0 : - Prophylaxis of Venous Thrombosis (high-risk surgery) - Treatment of Venous Thrombosis - Treatment of Pulmonary Embolism (Includes tissue heart valves, Acute Myocardial Infarction to prevent systemic embolism, Valvular Heart Disease, and Atrial Fibrillation) ----- INR of 2.5 - 3.5 : - Mechanical Prosthetic Valves (high risk) - If oral anticoagulant therapy is used to prevent Myocardial Infarction Performed By: #### L AB20, LAB15, [id number], [id number] #### Milling Machine Operator Gear: MARY MOLINA ([id number]) [facility] [employer] SecurityD[facility]) [address] [place] [address] PT Coag (PPP) [Time] 11.2 s Normal 9.0-12.0 [facility] Comment on above: Performed By: #### L AB20, LAB15, [id number], [id number] #### Milling Machine Operator Gear: MARY MOLINA ([id number]) [facility] [employer] SecurityD[facility]) [address] [place] [address] Progress Noteon 07-30-2024 Progress Note Pt is on a regular, MAXWELL diet with good p.o intake. No nutritional concerns identified. Sign off to lead quality technician. Rhoda Garber RD,LD,[facility] Progress Note -- Attestation signed by Heather Morton DO at 07/30/2024 12:21 PM I reviewed the history, the documented findings, and performed a physical exam of the patient. I agree with Dr. Mohan's assessment, and we discussed the management of the patient. See orders.BP managed with cardene. stable. No new deficits noted.Await MRI/MRV. Monitor in ICU today. ICU Progress Note Name: Efraín Meredith : 1935(88 y.o.) Date: 07/30/24 Team: MICU Attending: Dr. Morton Subjective: Hospital Summary: Duy Meredith is a 88 y.o. male presenting to outside hospital with several days of left arm and hand numbness and slurred speech. Imaging obtained during evaluation identified right small right SAH. No history of trauma. 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 past surgical history that includes Cardiac defibrillator placement; Cardiac procedure; and Coronary angioplasty. Interval Events: Seen and examined bedside. Awake, alert, following commands. Pleasant. No acute distress. Scheduled Meds:Scheduled Meds[1] Continuous Infusions:Continuous Meds[2] Objective: Last Vitals: BP MAP 127/66 (07/30/24 1100) 85 (07/30/24 1100) Arterial BP MAP Temp 36.6 ?C (97.8 ?F) (07/30/24 0746) Pulse 70 (07/30/24 1100) Resp 20 (07/30/24 1100) SpO2 99 % (07/30/24 1100) Weight 68 kg (150 lb) (07/30/24 1008) BMI Body mass index is 24.21 kg/m?. I/O: 07/29 0700 - 07/30 0659 In: 850.2 [I.V.:850.2] Out: 1650 [Urine:1650] Invasive Lines / Tubes / Drains: Peripheral IV 07/29/24 Right Antecubital (Active) Number of days: 1 Peripheral IV 07/30/24 Left;Posterior Hand (Active) Number of days: 0 Constitutional: General Appearance [x]WDWN []Obese []Cachectic []Thin []Ill Eyes: Inspection of Pupils/Irises Pupils round and react: [x]Yes []No Sclera: []Icteric [x]Non-Icteric Inspection of Conjunctiva/Lids Conjunctiva: []Injected [x]Non-Injected Lids: [x]Intact []Lesion Present ENT/Mouth: External Inspection of ears/nose [x] Normal [] Scar/Lesion/Mass Inspection of teeth/lips/gums Dentition: [x][place] Teeth []Dentures Lips/Gums: [x]Intact []Lesion Present Mucosa: [x][place] []Moist []Dry Neck: External Appearance Overall Appearance: [x]Normal []Lesion/Mass/Crepitus Present Trachea midline: [x]Yes []No Thyroid [x]Normal []Enlarged []Tender []Mass []Absent Respiratory: Respiratory effort []Labored [x]Non-Labored [] Mechanically-Ventilate d Auscultation [x]Clear []Crackles []Wheezes []Rhonchi Cardiovascular: Auscultation Rate: [x]Regular []Irregular []Tachycardia []Bradycardia Rhythm: [x]Regular []Irregular Murmur: []Present [x]Absent Extremities Peripheral Edema: []Present [x]Absent Varicosities: []Present [x]Absent Gastrointestinal: Abdomen Palpation: [x]Soft []Firm []Tender []Non-Tender []Distended []Non-distended Mass: []Present [x]Absent Bowel Sounds: []Present [x]Absent Hernia: []Present [x]Absent Liver/Spleen: []Hepatosplenomegaly [x]Organomegaly Absent Musculoskeletal: Inspection of Digits and Nails Cyanosis: []Present [x]Absent Clubbing: []Present [x]Absent Ischemia: []Present [x]Absent Infection: []Present [x]Absent Extremities ORTEZ Equally Strength/Tone Skin: Inspection [x]Normal []Rash []Lesion []Ulcer Palpation [x]Warm []Cool []Dry []Clammy []Nodules []Induration []Skin-tightening Cap-Refill: [] <3 sec [] >3 seconds (delayed) Neurologic: GCS EYE: 4 - Opens spontaneously GCS MOTOR: 6 - Obeys commands for movement GCS VERBAL: 5 - Oriented to person, place, time Total GCS: 15 [] Sensation grossly intact Psych: Mental Status Alert: [x]Yes [] No Oriented: []x0 []X1 []X2 [x]x3 Mood/Affect [x]Normal []Flat []Agitated []Depressed []Anxious []Calm []Sedated []NAD [facility] within last 24 hours- BMP: Recent Labs 07/29/24 1731 07/30/24 0259 NA -- 138 K -- 4.1 CL -- 111* CO2 -- 19* BUN -- 16 CREATININE -- 1.00 CALCIUM -- 8.8 MG 1.9 -- PHOS 3.0 -- LFTs: Recent Labs 07/29/24 1755 07/30/24 0259 AST -- 25 ALT -- 32 PROT -- 6.3* ALBUMIN -- 3.4 BILITOT -- 1.1 BILIRUBINU Negative -- ALKPHOS -- 68 Glucose: Recent Labs 07/30/24 0259 GLUCOSE 105 Procal: Recent Labs 07/29/24 1731 PROCAL 0.02 CBC: Recent Labs 07/30/24 0259 WBC 9.9 HGB 12.5* HCT 38.1* PLT 189 MCV 87.4 RDW 13.2 INR: Recent Labs 07/30/24 0259 INR 1.1 Cardiac Injury Profile: No results for input(s): CKTOTAL, CKMB, TROPONINI in the (more content not included)... Normal [facility] Progress Note PHYSICAL THERAPY [facility] Name/MRN: Duy Meredith ([id number]) Date: 07/30/2024 Received orders for PT eval and treat. Pt currently on bedrest. Will hold until activity level is increased. Darvin Lange, SPT Normal [facility] US Heart TransthoracicOrdere d By: Kasia Sims on 07-30-2024 Aortic Sinus Valsalva 3.2 cm [facility] Work Phone: Aortic Sinus Valsalva Index 1.81 cm/m2 [facility] Work Phone: Aortic valve Mean systole pressure gradient by US.doppler derived full Bernoulli [address] [facility] Work Phone: Aortic valve Orifice area by US 3.1 cm2 [facility] Work Phone: Aortic valve Peak systolic flow by US.doppler 0.7 m/s [facility] Work Phone: Ascending Aorta 3.[address] [facility] Work Phone: Ascending Aorta Index 1.81 cm/m2 [facility] Work Phone: AV Area by Peak Velocity 2.3 cm2 [facility] Work Phone: AV Area by VTI 1.9 cm2 [facility] Work Phone: AV Peak Gradient 4 mmHg [facility] Work Phone: AV Peak Velocity 1 m/s [facility] Work Phone: AV Velocity Ratio 0.7 [facility] Work Phone: AV VTI 23 cm [facility] Work Phone: ALEX/BSA Peak Velocity 1.3 cm2/m2 [facility] Work Phone: ALEX/BSA VTI 1.1 cm2/m2 [facility] Work Phone: E/E' Lateral 15.29 [facility] [employer] Work Phone: E/E' Ratio (Averaged) 21.[address] [facility] [employer] Work Phone: E/E' Septal 26.75 [facility] [employer] Work Phone: Est. RA Pressure 8 mmHg [facility] [employer] [facility] Work Phone: Fractional Shortening 2D 9 % 28 - 44 % [facility] [employer] Work Phone: Interpretation and review of laboratory results Abnormal [facility] [employer] Work Phone: IVC Diameter 2.5 cm [facility] [employer] Phone: IVSd 0.7 cm 0.6 - 1.0 cm [facility] [employer] Phone: [phone] LA Diameter 4.5 cm [facility] [employer] Phone: LA Size Index 2.54 cm/m2 [facility] [employer] Work Phone: LA Volume 2C 85 mL Abnormal 18 - 58 mL [facility] [employer] Work Phone: LA Volume 4C 71 mL Abnormal 18 - 58 mL [facility] [employer] Phone: LA Volume A/L 87 mL [facility] [employer] Work Phone: LA Volume BP 80 mL Abnormal 18 - 58 mL [facility] [employer] Phone: LA Volume Index 2C 48 mL/m2 Abnormal 16 - 34 mL/m2 [facility] [employer] Phone: LA Volume Index 4C 40 mL/m2 Abnormal 16 - 34 mL/m2 [facility] [employer] Work Phone: LA Volume Index A/L 49 mL/m2 16 - 34 mL/m2 [facility] [employer] Phone: LA Volume Index BP 45 ml/m2 Abnormal 16 - 34 ml/m2 [facility] [employer] Phone: Left ventricular Ejection fraction by US.2D+Calculated by biplane method of disks 27 % Abnormal 55 - 100 % [facility] Work Phone: LV E' Lateral Velocity 7 cm/s [facility] Work Phone: LV E' Septal Velocity 4 cm/s [facility] Work Phone: LV EDV A2C 249 mL [facility] Work Phone: LV EDV A4C 220 mL [facility] Work Phone: LV EDV BP 236 mL Abnormal 67 - 155 mL [facility] Work Phone: LV EDV Index A2C 141 mL/m2 [facility] Work Phone: LV EDV Index A4C 124 mL/m2 [facility] Work Phone: LV EDV Index BP 133 mL/m2 [facility] Work Phone: LV Ejection Fraction A2C 31 % [facility] [employer] Work Phone: LV Ejection Fraction A4C 23 % [facility] Work Phone: LV ESV A2C 171 mL [facility] [employer] Work Phone: LV ESV A4C 169 mL [facility] [employer] Work Phone: LV ESV BP 171 mL Abnormal 22 - 58 mL [facility] Work Phone: LV ESV Index A2C 97 mL/m2 [facility] Work Phone: LV ESV Index A4C 95 mL/m2 [facility] Work Phone: LV ESV Index BP 97 mL/m2 [facility] Work Phone: LV Mass 2D 177.3 g 88 - 224 g [facility] Work Phone: LV Mass 2D Index 100.2 g/m2 49 - 115 g/m2 [facility] [employer] Work Phone: LV RWT Ratio 0.22 [facility] [employer] Work Phone: LVIDd 6.4 cm Abnormal 4.2 - 5.9 cm [facility] Work Phone: LVIDd Index 3.62 cm/m2 [facility] Work Phone: LVIDs 5.8 cm [facility] Work Phone: LVIDs Index 3.28 cm/m2 [facility] Work Phone: LVOT Cardiac Output 3.5 liter/minute [facility] Work Phone: [facility] Diameter [facility] Mean Gradient 1 mmHg [facility] Work Phone: LVOT Peak Gradient 2 mmHg [facility] Work Phone: LVOT Peak Velocity 0.7 m/s [facility] Work Phone: LVOT Stroke Volume Index 25.4 mL/m2 [facility] Work Phone: LVOT SV 44.9 ml [facility] Work Phone: LVOT VTI 14.3 cm [facility] Work Phone: LVOT:AV VTI Index 0.62 [facility] Work Phone: LVPWd 0.7 cm 0.6 - 1.0 cm [facility] Work Phone: MR VTI 156.4 cm [facility] Work Phone: MV A Velocity 0.42 m/s [facility] Work Phone: MV Area by PHT 3.3 cm2 [facility] Work Phone: MV Area by VTI 1.7 cm2 [facility] Work Phone: MV E Velocity 1.07 m/s [facility] Work Phone: MV E Wave Deceleration Time 146.8 ms [facility] Work Phone: MV E/A 2.55 [facility] Work Phone: MV Max Velocity 1.1 m/s [facility] Work Phone: MV Mean Gradient 2 mmHg [facility] Work Phone: MV Mean Velocity 0.6 m/s [facility] Work Phone: MV Nyquist Velocity 36 cm/s [facility] Work Phone: MV Peak Gradient 5 mmHg [facility] Work Phone: MV PHT 67.2 ms [facility] Work Phone: MV Regurg Velocity PISA 4.7 m/s [facility] Work Phone: MV VTI 26.2 cm [facility] Work Phone: MV:LVOT VTI Index 1.83 [facility] Work Phone: RA Area 4C 61.7 mL [facility] Work Phone: RA Area 4C 59.9 mL [facility] Work Phone: RV Basal Dimension 3.3 cm [facility] Work Phone: RV Free Wall Peak S' 11 cm/s [facility] Work Phone: RV Longitudinal Dimension 6.8 cm [facility] Work Phone: RV Mid Dimension 2.3 cm [facility] Work Phone: RVSP 56 mmHg [facility] Work Phone: Sinotubular Junction 2.7 cm [facility] Work Phone: TAPSE 2.4 cm 1.7 cm [facility] Work Phone: TR Max Velocity 3.48 m/s [facility] Work Phone: TR Peak Gradient 48 mmHg [facility] Work Phone: [facility] Work Phone: US Heart Transthoracicon Left Ventricle: Left ventricle is moderately dilated. Normal wall thickness. Severely reduced left ventricular systolic function. EF by 2D Simpsons Biplane is 27%, which may be a bit of an overestimate. Regardless, function is severely impaired. See diagram for wall motion findings. Grade III diastolic dysfunction with increased LAP. Right Ventricle: Right ventricle size is normal. ICD lead present in the right ventricle. Normal systolic function. Mitral Valve: Mildly thickened leaflets. Annular calcification. At least moderate (2+) regurgitation with a centrally directed jet. Systolic blunting of the pulmonary veins. Moderate apical tethering of both leaflets. Tricuspid Valve: Valve structure is normal. Mild to moderate (1-2+) regurgitation. Moderately elevated RVSP. RVSP is 56 mmHg. Left Ventricle Left ventricle is moderately dilated. Normal wall thickness. Severely reduced left ventricular systolic function. EF by 2D Simpsons Biplane is 27%, which may be a bit of an overestimate. Regardless, function is severely impaired. See diagram for wall motion findings. Grade III diastolic dysfunction with increased LAP. Right Ventricle Right ventricle size is normal. ICD lead present in the right ventricle.Normal systolic function. Left Atrium Left atrium is severely dilated. LA Vol Index A/L is 49 mL/m2. Right Atrium Right atrium size is normal. Lead present in the right atrium. IVC/SVC IVC diameter is dilated and decreases greater than 50% during inspiration; therefore the estimated right atrial pressure is intermediate (~8 mmHg). Mitral Valve Mildly thickened leaflets. Annular calcification. At least moderate (2+) regurgitation with a centrally directed jet. Systolic blunting of the pulmonary veins. No stenosis noted. Moderate apical tethering of both leaflets. Tricuspid Valve Valve structure is normal. Mild to moderate (1-2+) regurgitation. Moderately elevated RVSP. RVSP is 56 mmHg. Aortic Valve Trileaflet. Mildly thickened cusps. Mildly calcified cusps. Mild (1+) regurgitation. No stenosis. Pulmonic Valve Valve structure is normal. Trace regurgitation. Ascending Aorta Normal sized sinuses of Valsalva and ascending aorta. There is moderate, non-protruding and calcified atherosclerosis in the abdominal aorta. Pericardium No pericardial effusion. Septum No interatrial shunt visualized on color Doppler. Study Details Image quality: good. Heart rate: 69 bpm. Blood pressure: 129/64 mmHg. The underlying ECG rhythm was sinus rhythm. Cardiac history: PPM/AICD. Ultrasound enhancement agent was given to enhance imaging. Wall Scoring Baseline Score Index: 2.53 The following segments are akinetic: basal inferoseptal, basal inferior, mid inferoseptal, mid inferior, apical anterior, apical septal, apical inferior, apical lateral and apex. The following segments are hypokinetic: basal anterior, basal anteroseptal, basal inferolateral, basal anterolateral, mid anterior, mid anteroseptal, mid inferolateral and mid anterolateral. CV CPACS Vital signsOrdered By: Scotty Charles on 07-30-2024 Heart rate 68 /min bpm [employer] Work Phone: 12 Lead EKGon 07-29-2024 12 Lead EKG [facility] [address] [place] [address] 12 Lead EKG 07/29/24 1256 MR#: [id number] Acct: [id number] Name: EFRAÍN MEREDITH Rep #: [id number] : 1935 [id number] From: Tiago Hawley MD Attending Dr: Status: DEP ER Ordering Dr: Albin Nugent MD Date: 07/29/24 Location: ED Sex: M C Admitted: Test Reason : STROKE ALERT Blood Pressure : */* mmHG Vent. Rate : 78 BPM Atrial Rate : 78 BPM P-R Int : 198 ms QRS Dur : 96 ms QT Int : 386 ms P-R-T Axes : 49 -46 91 degrees QTcB Int : 440 ms Sinus rhythm with occasional Premature ventricular complexes Possible Left atrial enlargement Left axis deviation Anteroseptal infarct , age undetermined Abnormal ECG Confirmed by DEANNA DAVIES, TIAGO ([id number]), clinical editor ADALI DE LEÓN ([id number]) on 07/31/2024 7:43:31 AM Referred By: AR Confirmed By: TIAGO HAWLEY MD 07/31/24 0743 Date Tiago Hawley MD CC: Dr. Albin Nugent MD; Dr. Devon Stokes, DO Signed Normal [facility] Absolute lymphocyte countOrd ered By: Albin Nugent on 07-29-2024 Lymphocytes Auto (Unsp spec) [#/Vol] 4.75 10*3/uL High 0.83-4.51 [facility] Absolute neutrophil countOrd ered By: Albin Nugent on 07-29-2024 Neutrophils (Bld) [#/Vol] 5.5 10*3/uL 2.0-7.7 [facility] Activated partial thrombopla stin time (aPTT) in platelet poor plasma by coagulation aOrdered By: Albin Nugent on 07-29-2024 aPTT Coag (PPP) [Time] 24.3 s 24.1-36.2 [facility] Anion gap in Serum or Plasma Ordered By: Albin Nugent on 07-29-2024 Anion gap [Moles/Vol] 12 mmol/L 06-28 [facility] Automated lymphocyte count a s percentage of total leukocytesOrdered By: Albin Nugent on 07-29-2024 Lymphocytes/100 WBC Auto (Unsp spec) 42.4 % High [facility] BUN/creatinine ratioOrdered By: Albin Nugent on 07-29-2024 Urea nitrogen/Creatinine [Mass ratio] 12.8 mg/mg 12-03 [facility] Basic Metabolic Profile (BMP )on 07-29-2024 BUN/CRE 12.8 RATIO Normal 12-03 [facility] Comment on above: Performed By: #### L 300.3900, L300.4310, L100.0100, L501.4021, L500.2500 ####[facility] [address] [place], [address] Calcium [Mass/Vol] 9.3 mg/dL Normal 7.6-11.0 [facility] Comment on above: Performed By: #### L 300.3900, L300.4310, L100.0100, L501.4021, L500.2500 ####[facility] [address] [place], [address] Chloride [Moles/Vol] 106 mmol/L Normal 98-108 [facility] Comment on above: Performed By: #### L 300.3900, L300.4310, L100.0100, L501.4021, L500.2500 ####[facility] [address] [place], [address] CO2 [Moles/Vol] 19.8 mmol/L Low 21.0-32.0 [facility] Comment on above: Performed By: #### L 300.3900, L300.4310, L100.0100, L501.4021, L500.2500 ####[facility] [address] [place], [address] Creatinine [Mass/Vol] 1.04 mg/dL Normal 0.70-1.20 [facility] Comment on above: Performed By: #### L 300.3900, L300.4310, L100.0100, L501.4021, L500.2500 ####[facility] [address] [place], [address] ECRCL 44.31 ml/min Low 50-250 [facility] Comment on above: Performed By: #### L 300.3900, L300.4310, L100.0100, L501.4021, L500.2500 ####[facility] [address] [place], [place], [phone] GAP 12 Normal 5-15 [facility] Comment on above: Performed By: #### L 300.3900, L300.4310, L100.0100, L501.4021, L500.2500 ####[facility] [address] [place], [address] GFR/1.73 sq M.predicted among non-blacks MDRD (S/P/Bld) [Vol rate/Area] 69 mL/min/{1.73_m2} Normal >60 [facility] Comment on above: Result Comment: mL/m in/1.73m2 CKD-EPI Creatinine Equation (2020) Performed By: #### L 300.3900, L300.4310, L100.0100, L501.4021, L500.2500 ####[facility] [address] [place], [address] Glucose [Mass/Vol] 108 mg/dL High 70-99 [facility] Comment on above: Performed By: #### L 300.3900, L300.4310, L100.0100, L501.4021, L500.2500 ####[facility] [address] [place], [address] Potassium [Moles/Vol] 4.3 mmol/L Normal 3.3-5.1 [facility] Comment on above: Performed By: #### L 300.3900, L300.4310, L100.0100, L501.4021, L500.2500 ####[facility] [address] [place], [address] Sodium [Moles/Vol] 138 mmol/L Normal 133-145 [facility] Comment on above: Performed By: #### L 300.3900, L300.4310, L100.0100, L501.4021, L500.2500 ####[facility] [address] [place], [address] Urea nitrogen [Mass/Vol] 13 mg/dL Normal 4-19 [facility] Comment on above: Performed By: #### L 300.3900, L300.4310, L100.0100, L501.4021, L500.2500 ####[facility] [address] [place], [address] Basophil percentageOrdered B y: Albin Nugent on 07-29-2024 Basophils/100 WBC (Bld) 0.4 % 0-1 [facility] Bedside Glucoseon 07-29-2024 FINGERSTICK GLU 91 mg/dL Normal 74-106 [facility] Comment on above: Result Comment: KAILEE ENRIQUE OF PATIENT CARE PER NURSING PROTOCOL Performed By: #### L 501.080 ####[facility] [address] [place], [address] CBC W/Diff, Automatedon 07-15 Absolute Lymph 4.75 X10 3/uL High 0.83-4.51 [facility] Comment on above: Performed By: #### L 300.3900, L300.4310, L100.0100, L501.4021, L500.2500 ####[facility] [address] [place], [address] Absolute Neut 5.5 X10 3/uL Normal 2.0-7.7 [facility] Comment on above: Performed By: #### L 300.3900, L300.4310, L100.0100, L501.4021, L500.2500 ####[facility] [address] [place], [address] Basophils/100 WBC (Bld) 0.4 % Normal 0-1 [facility] Comment on above: Performed By: #### L 300.3900, L300.4310, L100.0100, L501.4021, L500.2500 ####[facility] [address] [place], [address] Eosinophils/100 WBC (Bld) 1.4 % Normal 0-5 [facility] Comment on above: Performed By: #### L 300.3900, L300.4310, L100.0100, L501.4021, L500.2500 ####[facility] [address] [place], [address] Erythrocyte distribution width (RBC) [Ratio] 13.2 % Normal 11.6-14.6 [facility] Comment on above: Performed By: #### L 300.3900, L300.4310, L100.0100, L501.4021, L500.2500 ####[facility] [address] [place], [address] Hematocrit (Bld) [Volume fraction] 41.7 % Normal 40-54 [facility] Comment on above: Performed By: #### L 300.3900, L300.4310, L100.0100, L501.4021, L500.2500 ####[facility] [address] [place], [address] Hemoglobin (Bld) [Mass/Vol] 13.8 g/dL Normal 13.0-16.5 [facility] Comment on above: Performed By: #### L 300.3900, L300.4310, L100.0100, L501.4021, L500.2500 ####[facility] [address] [place], [address] IG% 0.500 Normal 0.0-0.9 [facility] Comment on above: Result Comment: IG% - Immature Granulocytes (promyelocytes, myelocytes and metamyelocytes) > 1% indicates that a LEFT SHIFT is Present. Performed By: #### L 300.3900, L300.4310, L100.0100, L501.4021, L500.2500 ####[facility] [address] [place], [address] Lymphocytes/100 WBC (Bld) 42.4 % High 19-41 [facility] Comment on above: Performed By: #### L 300.3900, L300.4310, L100.0100, L501.4021, L500.2500 ####[facility] [address] [place], [address] MCH (RBC) [Entitic mass] 29.1 pg Normal 27.0-32.0 [facility] Comment on above: Performed By: #### L 300.3900, L300.4310, L100.0100, L501.4021, L500.2500 ####[facility] [address] [place], [address] MCHC (RBC) [Mass/Vol] 33.1 g/dL Normal 32-36 [facility] Comment on above: Performed By: #### L 300.3900, L300.4310, L100.0100, L501.4021, L500.2500 ####[facility] [address] [place], [address] MCV (RBC) [Entitic vol] 88.0 fL Normal 80-94 [facility] Comment on above: Performed By: #### L 300.3900, L300.4310, L100.0100, L501.4021, L500.2500 ####[facility] [address] [place], [address] Monocytes/100 WBC (Bld) 6.0 % Normal 0-10 [facility] Comment on above: Performed By: #### L 300.3900, L300.4310, L100.0100, L501.4021, L500.2500 ####[facility] [address] [place], [address] Neutrophils/100 WBC (Bld) 49.3 % Normal 47-70 [facility] Comment on above: Performed By: #### L 300.3900, L300.4310, L100.0100, L501.4021, L500.2500 ####[facility] [address] [place], [address] Nucleated RBC (Bld) [#/Vol] 0 10*3/uL Normal 0-5 [facility] Comment on above: Performed By: #### L 300.3900, L300.4310, L100.0100, L501.4021, L500.2500 ####[facility] [address] [place], [address] Platelet mean volume (Bld) [Entitic vol] 11.0 fL Normal 6.2-12.0 [facility] Comment on above: Performed By: #### L 300.3900, L300.4310, L100.0100, L501.4021, L500.2500 ####[facility] [address] [place], [address] Platelets (Bld) [#/Vol] 232 10*3/uL Normal 150-450 [facility] Comment on above: Performed By: #### L 300.3900, L300.4310, L100.0100, L501.4021, L500.2500 ####[facility] [address] [place], [address] RBC (Bld) [#/Vol] 4.74 10*6/uL Normal 4.6-6.2 [facility] Comment on above: Performed By: #### L 300.3900, L300.4310, L100.0100, L501.4021, L500.2500 ####[facility] [address] [place], [address] RDW SD 42.6 fl Normal 35.1-43.9 [facility] Comment on above: Performed By: #### L 300.3900, L300.4310, L100.0100, L501.4021, L500.2500 ####[facility] [address] [place], [address] WBC (Bld) [#/Vol] 11.2 10*3/uL High 4.4-11.0 [facility] Comment on above: Performed By: #### L 300.3900, L300.4310, L100.0100, L501.4021, L500.2500 ####[facility] [address] [place], [address] COMPLETE URINALYSIS WITH REF JOEY TO CULTURE 07-29-2024 BILIRUBIN, TOTAL PRESENCE IN URINE Negative Normal Negative [facility] Comment on above: Performed By: #### L AB20, LAB15, [id number], [id number] #### [employer]: MARY MOLINA ([id number]) [facility] ([facility]) [address] [place] [address] Clarity (U) Clear Normal Clear [facility] Comment on above: Performed By: #### L AB20, LAB15, HXR114, [id number] #### [employer]: MARY MOLINA ([id number]) [facility] ([facility]) [address] [place] [address] Color (U) Colorless Normal Lt. Yellow [facility] Comment on above: Performed By: #### L AB20, LAB15, [id number], [id number] #### [employer]: MARY MOLINA ([id number]) [facility] ([facility]) [address] [place] [address] GLUCOSE (MG/DL) IN URINE Normal Normal Normal (<70) [facility] Comment on above: Performed By: #### L AB20, LAB15, [id number], [id number] #### [employer]: MARY MOLINA ([id number]) [facility] ([facility]) [address] [place] [address] HEMOGLOBIN PRESENCE IN URINE Negative Normal Negative [facility] Comment on above: Performed By: #### L AB20, LAB15, BCV255, [id number] #### [employer]: MARY MOLINA ([id number]) [facility] ([facility]) [address] [place] [address] Ketones Ql (U) Negative Normal Negative [facility] Comment on above: Performed By: #### L AB20, LAB15, [id number], [id number] #### [employer]: MARY MOLINA ([id number]) [facility] ([facility]) [address] [place] [address] LEUKOCYTE ESTERASE PRESENCE IN URINE BY TEST STRIP Negative Normal Negative [facility] Comment on above: Performed By: #### L AB20, LAB15, [id number], [id number] #### [employer]: MARY MOLINA ([id number]) [facility] ([facility]) [address] [place] [address] [place] NITRITE PRESENCE IN URINE Negative Normal Negative [facility] Comment on above: Performed By: #### L AB20, LAB15, [id number], [id number] #### [employer]: MARY MOLINA ([id number]) [facility] ([facility]) [address] [place] [address] pH (U) 7.0 [pH] Normal 5.0-8.0 [facility] Comment on above: Performed By: #### L AB20, LAB15, ERP604, [id number] #### [employer]: MARY MOLINA ([id number]) [address] Protein (U) [Mass/Vol] Negative Normal Negative [facility] Comment on above: Performed By: #### L AB20, LAB15, [id number], [id number] #### [employer]: MARY MOLINA ([id number]) [address] Specific gravity (U) [Rel density] >1.030 High 1.005-1.030 [facility] Comment on above: Result Comment: LEONOR Polanco COMMENTS: A specimen with <=10 WBC is not consistent with inflammation. This specimen will not reflex to a urine culture. Performed By: #### L AB20, LAB15, WIE150, [id number] #### [employer]: MARY MOLINA ([id number]) [facility]) [address] [place] [address] UROBILINOGEN (MG/DL) IN URINE Normal Normal Normal (0-1) [facility] Comment on above: Performed By: #### L AB20, LAB15, [id number], [id number] #### [employer]: MARY MOLINA ([id number]) [address] HEAD NECK ANGIO W AND WO IV CONTRASTon 07-29-2024 CT HEAD NECK ANGIO W AND WO IV CONTRAST Patient Name: EFRAÍN MEREDITH [facility] 1935 [place] [id number] Exam Date/Time: 07/29/2024 17:03 Procedure: CT HEAD NECK ANGIO W AND WO IV CONTRAST Ordering Provider: LEE BETHANY Reason For Exam: stroke Examination: CTA head and neck Clinical Indication: Stroke Comparison: None. Findings: Serial axial 0.5 mm images were obtained after a 75 mL of IV contrast bolused through the head and neck. 3-D reconstructions were then configured on a separate workstation by the interpreting radiologist. Coronal and sagittal images were reconstructed. Dose reduction was employed with automated exposure control. NASCET criteria was utilized to describe any region of focal stenosis. Cervical/extracranial: Approximately 20% calcific atheromatous disease/stenosis of the proximal most left internal carotid artery. Otherwise the carotid arteries are normal in caliber and symmetric and demonstrate no significant atherosclerotic calcifications. No significant plaque formation or evidence of dissection flap. Normal contrast opacification of the vertebral arteries which appear symmetric in size and demonstrate no significant atherosclerotic narrowing, plaque or dissection flap. Intracranial: Known area of posterior left frontal lobe subarachnoid hemorrhage. No evidence of stenosis or obstruction within the anterior, middle, or posterior cerebral arteries. No evidence of stenosis within the intracranial internal carotid arteries. No significant atherosclerotic calcification. No evidence of a dissection flap. Carotid siphons are within normal limits. The intracranial right vertebral artery is faintly opacified. Only a few thin and diminutive portions of the left intracranial vertebral artery are opacified. Only the thin and diminutive distal basilar artery is opacified. IMPRESSION: Impression: 1. Known area of posterior left frontal lobe subarachnoid hemorrhage. 2. The intracranial right vertebral artery is faintly opacified and only a few thin and diminutive portions of the left intracranial vertebral artery are opacified. Only the thin and diminutive distal basilar artery is opacified. Report Dictated on Electronically Signed By: Zhou Robert MD Electronically Signed Date/Time: 07/29/2024 6:[address] head wo IV contrast stroke CTA head neck angio w and wo IV contrast stroke [facility] CT HEAD WO IV CONTRASTon CT HEAD WO IV CONTRAST Patient Name: EFRAÍN MAYNARD : 1935 [facility]#: [id number] Exam Date/Time: 07/29/2024 17:03 Procedure: CT HEAD WO IV CONTRAST Ordering Provider: LEE BETHANY Reason For Exam: stroke CT HEAD WITHOUT CONTRAST CLINICAL INDICATION: Stroke Axial noncontrast CT images of the brain were obtained. Coronal and sagittal reconstructions were also made available for interpretation. Dose reduction was employed with automated exposure control. COMPARISON: None. FINDINGS: Subarachnoid hemorrhage within the superior right frontal lobe, just anterior to the central sulcus. No additional areas of intracranial hemorrhage. No mass effect. Mild diffuse cortical volume loss. Nonspecific periventricular and subcortical white matter hypodensities likely reflect areas of small vessel ischemic change in a patient of this age. No definite evidence for acute cortical infarction. No midline shift or mass effect is noted. Unremarkable calvarium. The paranasal sinuses are clear. Atherosclerotic calcification of the carotid siphons is noted. IMPRESSION: Subarachnoid hemorrhage within the superior right frontal lobe, just anterior to the central sulcus. ASPECTS SCORE: 10 No stroke notification was provided. CRITICAL TEST RESULT COMMUNICATION: Notification of these findings was made to Dr. Morton and Dr. Squires via [employer] secure chat on 07/29/2024 6:08 PM EDT. Report Dictated on Electronically Signed By: Zhou Robert MD Electronically Signed Date/Time: 07/29/2024 6:[address] head wo IV contrast stroke CTA head neck angio w and wo IV contrast stroke Normal [facility] CT Head WO contraston 2024 Subarachnoid hemorrhage within the superior right frontal lobe, just anterior to the central sulcus. ASPECTS SCORE: 10 No stroke notification was provided. CRITICAL TEST RESULT COMMUNICATION: Notification of these findings was made to Dr. Morton and Dr. Squires via [employer] chat on 07/29/2024 6:08 PM EDT. Report Dictated on Electronically Signed By: Zhou Robert MD Electronically Signed Date/Time: 07/29/2024 6:10 PM EDT [facility] [employer] Patient Name: EFRAÍN MEREDITH : 1935 [facility]#: [id number] Exam Date/Time: 07/29/2024 17:03 Procedure: CT HEAD WO IV CONTRAST Ordering Provider: LEE BETHANY Reason For Exam: stroke CT HEAD WITHOUT CONTRAST CLINICAL INDICATION: Stroke Axial noncontrast CT images of the brain were obtained. Coronal and sagittal reconstructions were also made available for interpretation. Dose reduction was employed with automated exposure control. COMPARISON: None. FINDINGS: Subarachnoid hemorrhage within the superior right frontal lobe, just anterior to the central sulcus. No additional areas of intracranial hemorrhage. No mass effect. Mild diffuse cortical volume loss. Nonspecific periventricular and subcortical white matter hypodensities likely reflect areas of small vessel ischemic change in a patient of this age. No definite evidence for acute cortical infarction. No midline shift or mass effect is noted. Unremarkable calvarium. The paranasal sinuses are clear. Atherosclerotic calcification of the carotid siphons is noted. [facility] Zhou Robert MD - 07/29/2024 Patient Name: EFRAÍN MEREDITH : 1935 [facility]#: [id number] Exam Date/Time: 07/29/2024 17:03 Procedure: CT HEAD WO IV CONTRAST Ordering Provider: LEE BETHANY Reason For Exam: stroke CT HEAD WITHOUT CONTRAST CLINICAL INDICATION: Stroke Axial noncontrast CT images of the brain were obtained. Coronal and sagittal reconstructions were also made available for interpretation. Dose reduction was employed with automated exposure control. COMPARISON: None. FINDINGS: Subarachnoid hemorrhage within the superior right frontal lobe, just anterior to the central sulcus. No additional areas of intracranial hemorrhage. No mass effect. Mild diffuse cortical volume loss. Nonspecific periventricular and subcortical white matter hypodensities likely reflect areas of small vessel ischemic change in a patient of this age. No definite evidence for acute cortical infarction. No midline shift or mass effect is noted. Unremarkable calvarium. The paranasal sinuses are clear. Atherosclerotic calcification of the carotid siphons is noted. IMPRESSION: Subarachnoid hemorrhage within the superior right frontal lobe, just anterior to the central sulcus. ASPECTS SCORE: 10 No stroke notification was provided. CRITICAL TEST RESULT COMMUNICATION: Notification of these findings was made to Dr. Morton and Dr. Squires via [employer] secure chat on 07/29/2024 6:08 PM EDT. Report Dictated on Electronically Signed By: Zhou Robert MD Electronically Signed Date/Time: 07/29/2024 6:[address] [employer] [address] Head WO contrastOrdered B y: Zhou Robert on 07-29-2024 [employer] Work Phone: CTA Head vessels and Neck ve ssels WO and W contrast [place] 07-29-2024 Impression: 1. Known area of posterior left frontal lobe subarachnoid hemorrhage. 2. The intracranial right vertebral artery is faintly opacified and only a few thin and diminutive portions of the left intracranial vertebral artery are opacified. Only the thin and diminutive distal basilar artery is opacified. Report Dictated on Electronically Signed By: Zhou Robert MD Electronically Signed Date/Time: 07/29/2024 6:05 PM EDT [facility] Patient Name: EFRAÍN MEREDITH : 1935 Exam Date/Time: 07/29/2024 17:03 Procedure: CT HEAD NECK ANGIO W AND WO IV CONTRAST Ordering Provider: LEE BETHANY Reason For Exam: stroke Examination: CTA head and neck Clinical Indication: Stroke Comparison: None. Findings: Serial axial 0.5 mm images were obtained after a 75 mL of IV contrast bolused through the head and neck. 3-D reconstructions were then configured on a separate workstation by the interpreting radiologist. Coronal and sagittal images were reconstructed. Dose reduction was employed with automated exposure control. NASCET criteria was utilized to describe any region of focal stenosis. Cervical/extracranial: Approximately 20% calcific atheromatous disease/stenosis of the proximal most left internal carotid artery. Otherwise the carotid arteries are normal in caliber and symmetric and demonstrate no significant atherosclerotic calcifications. No significant plaque formation or evidence of dissection flap. Normal contrast opacification of the vertebral arteries which appear symmetric in size and demonstrate no significant atherosclerotic narrowing, plaque or dissection flap. Intracranial: Known area of posterior left frontal lobe subarachnoid hemorrhage. No evidence of stenosis or obstruction within the anterior, middle, or posterior cerebral arteries. No evidence of stenosis within the intracranial internal carotid arteries. No significant atherosclerotic calcification. No evidence of a dissection flap. Carotid siphons are within normal limits. The intracranial right vertebral artery is faintly opacified. Only a few thin and diminutive portions of the left intracranial vertebral artery are opacified. Only the thin and diminutive distal basilar artery is opacified. [facility] Zhou Robert MD - 07/29/2024 Patient Name: EFRAÍN MEREDITH : 1935 Exam Date/Time: 07/29/2024 17:03 Procedure: CT HEAD NECK ANGIO W AND WO IV CONTRAST Ordering Provider: LEE BETHANY Reason For Exam: stroke Examination: CTA head and neck Clinical Indication: Stroke Comparison: None. Findings: Serial axial 0.5 mm images were obtained after a 75 mL of IV contrast bolused through the head and neck. 3-D reconstructions were then configured on a separate workstation by the interpreting radiologist. Coronal and sagittal images were reconstructed. Dose reduction was employed with automated exposure control. NASCET criteria was utilized to describe any region of focal stenosis. Cervical/extracranial: Approximately 20% calcific atheromatous disease/stenosis of the proximal most left internal carotid artery. Otherwise the carotid arteries are normal in caliber and symmetric and demonstrate no significant atherosclerotic calcifications. No significant plaque formation or evidence of dissection flap. Normal contrast opacification of the vertebral arteries which appear symmetric in size and demonstrate no significant atherosclerotic narrowing, plaque or dissection flap. Intracranial: Known area of posterior left frontal lobe subarachnoid hemorrhage. No evidence of stenosis or obstruction within the anterior, middle, or posterior cerebral arteries. No evidence of stenosis within the intracranial internal carotid arteries. No significant atherosclerotic calcification. No evidence of a dissection flap. Carotid siphons are within normal limits. The intracranial right vertebral artery is faintly opacified. Only a few thin and diminutive portions of the left intracranial vertebral artery are opacified. Only the thin and diminutive distal basilar artery is opacified. IMPRESSION: Impression: 1. Known area of posterior left frontal lobe subarachnoid hemorrhage. 2. The intracranial right vertebral artery is faintly opacified and only a few thin and diminutive portions of the left intracranial vertebral artery are opacified. Only the thin and diminutive distal basilar artery is opacified. Report Dictated on Electronically Signed By: Zhou Robert MD Electronically Signed Date/Time: 07/29/2024 6:05 PM EDT [employer] [facility] Carbon dioxide, total [Moles /volume] in Central venous bloodOrdered By: Albin Nugent on 07-29-2024 CO2 [Moles/Vol] 19.8 mmol/L Low 21.0-32.0 [facility] Chloride assayOrdered By: Nabeel Nugent on 07-29-2024 Chloride [Moles/Vol] 106 mmol/L 98-108 [facility] Emergency Department Summary on 07-29-2024 Emergency Department Summary [facility] Medical Records Department [address] [place] [address] Emergency Department Summary 07/29/24 MR#: [id number] Acct: [id number] Name: EFRAÍN MEREDITH Rep #: [id number] : 1935 88 From: Albin Nugent MD PCP: Dr. Devon Stokse, DO Status:DEP ER Location: ED HPI History of Present Illness Chief Complaint: Stroke Alert Narrative Narrative: 88-year-old male presents with left arm numbness and left hand numbness that he has had intermittently since Tuesday, approximately 5 days ago. He states that intermittently, he had hand numbness for about 5 to 10 minutes. It went away and resolved on its own. However, it has been returning. The following day on Tuesday it may be last 20 minutes. This morning, he states he awoke around 4 AM and was experiencing numbness. He went back to bed and took a nap, and was feeling improved until about 20 minutes ago when he states that he experienced the numbness again, but seems to be lasting a little bit longer. He is having problems with holding things in his left hand as well. He states that he is dropping things more starting today. Denies headache or other symptoms. However, his had thought that maybe his speech was slightly slurred. [facility] Medical History Loss of hearing Wears glasses [...] 81 mg chewable tablet 81 mg PO DAILY 09/11/15 07/29/24 H istory nitroglycerin 0.4 mg sublingual 0.4 mg sublingual Q5M PRN Chest Unknown History tablet Pain simvastatin 40 mg tablet 40 mg PO QHS 09/11/15 07/28/24 His tory spironolactone 25 mg tablet 12.5 mg PO DAILY 09/11/15 07/29/24 History losartan 50 mg tablet 50 mg PO DAILY 08/25/22 07/29/24 H istory carvedilol 6.25 mg tablet 6.25 mg PO BID 01/19/24 07/29/24 H istory finasteride 5 mg tablet 5 mg PO DAILY 01/19/24 07/29/24 Hi story tamsulosin 0.4 mg capsule (Flomax) 0.4 mg PO DAILY 01/19/24 5 History Allergy/AdvReac Type Severity Reaction Status Date / Time No Known Allergies Allergy Verified 07/29/24 12:33 Family History Mother CAD (coronary artery disease) [...] safe at home: Yes ROS ROS ED ROS Narrative Review of systems positive for left hand numbness and weakness. Possible slurred speech. Denies headache, neck pain, or any other exacerbating or alleviating symptoms. EXAM Physical Exam Narrative Exam Narrative: Afebrile. Vital signs noted. Nontoxic-appearing. Cardiovascular examination reveals a regular rate and rhythm. Lungs clear to auscultation bilaterally. Abdomen soft, nontender, with normoactive bowel sounds. No guarding or rebound. Neurological examination does show ataxia of the left upper limb. There may be slight dysarthria as well, but the patient is hard of hearing. No expressive aphasia. Const Vital Signs: 07/29/24 12:28 07/29/24 12:35 07/29/24 12:42 Temperature 97.9 F Temperature Source Oral Pulse Rate 79 82 Respiratory Rate 18 20 H Blood Pressure 134/74 H 141/78 H Blood Pressure Mean 94 99 Pulse Ox 97 97 Oxygen Delivery Method Room Air Room Air Room Air 07/29/24 12:53 07/29/24 13:05 07/29/24 13:29 Temperature Temperature Source Pulse Rate 74 76 78 Respiratory Rate 20 H 22 H Blood Pressure 141/78 H 127/67 H 114/90 H Blood Pressure Mean 99 87 98 Pulse Ox 96 96 97 Oxygen Delivery Method Room Air Room Air Room Air 07/29/24 13:59 07/29/24 14:05 (more content not included)... Normal [facility] Eosinophil percentageOrdered By: Albin Nugent on 07-29-2024 Eosinophils/100 WBC (Bld) 1.4 % 0-5 [facility] Erythrocyte distribution wid th ratioOrdered By: Albin Nugent on 07-29-2024 Erythrocyte distribution width (RBC) [Ratio] 13.2 % 11.6-14.6 [facility] Erythrocyte distribution wid th standard deviationOrdered By: Albin Nugent on 07-29-2024 Erythrocyte distribution width (RBC) [Ratio] 42.6 fl 35.1-43.9 [facility] Glomerular filtration rate ( GFR) estimation/1.73 sq m using serum, plasma, or whole bOrdered By: Albin Nugent on 07-29-2024 GFR/1.73 sq M.predicted among non-blacks MDRD (S/P/Bld) [Vol rate/Area] 69 mL/min/{1.73_m2} >60 [facility] Comment on above: mL/min/1.73m2 CKD-EP I Creatinine Equation (2020) Glucose [facility] at [facility] deOrdered By: Albin Nugent on 07-29-2024 Glucose [Mass/Vol] 91 mg/dL 74-106 [facility] Comment on above: MANAGEMENT OF PATIEN T CARE PER NURSING PROTOCOL HEMOGLOBIN A1Con 07-29-2024 Glucose [Mass/Vol] 117 mg/dL Normal [facility] Comment on above: Result Comment: LEONOR R COMMENTS: HbA1c values of 5.7-6.4 percent indicate an increased risk for developing diabetes mellitus. HbA1c values greater than or equal to 6.5 percent are diagnostic of diabetes mellitus. For diagnosis of diabetes in individuals without unequivocal hyperglycemia, results should be confirmed by repeat testing. Performed By: #### L AB20, LAB15, [id number], [id number] #### [employer]illing [employer] Operator [employer]: MARY MOLINA ([id number]) [facility] ([facility]) [address] [place] [address] HEMOGLOBIN A1C 5.7 %HbA1C High <5.7 [facility] Comment on above: Result Comment: Norm al less than 5.7% Prediabetes 5.7% to 6.4% Diabetes 6.5% or higher --HgbA1C levels may not be accurate in patients who have renal disease, received recent blood transfusions, are anemic, or who have dyshemoglobinemia. Performed By: #### L AB20, LAB15, [id number], [id number] #### [employer]illing Machine Operator Gear: MARY MOLINA ([id number]) [facility]) [address] [place] [address] HIGH SENSITIVITY TROPONIN, S ERIAL BASELINEon 07-29-2024 TROPONIN HS SERIAL BASELINE 8 ng/L Normal <=35 [facility] Comment on above: Result Comment: In i ndividuals presenting with symptoms > 2h, a baseline troponin <= 5 ng/L suggests acute cardiac injury is unlikely and further serial testing is generally not indicated. Performed By: #### L [id number] #### [employer] Operator [employer]: MARY MOLINA ([id number]) [facility] ([facility]) [address] [place] [address] HIGH SENSITIVITY TROPONIN, S ERIAL, SECOND TESTon 07-29-2024 2H TROPONIN HS (SERIAL 2ND TROPONIN) 8 ng/L Normal <=35 [facility] Comment on above: Result Comment: Risi ng or falling troponin delta below 2 ng/L as compared to baseline value suggests that acute cardiac injury is unlikely. Performed By: #### L [id number] #### [employer] Operator [employer]: MARY MOLINA ([id number]) [facility] ([facility]) [address] [place] [address] Hematocrit Auto (Bld) [Volum e fraction]Ordered By: Albin Nugent on 07-29-2024 Hematocrit (Bld) [Volume fraction] 41.7 % 40-54 [facility] Hemoglobin measurementOrdere d By: Albin Waldropjulius on 07-29-2024 Hemoglobin (Bld) [Mass/Vol] 13.8 g/dL 13.0-16.5 [facility] Immature granulocytes/100 WB C Auto (Bld)Ordered By: Albin Jovanna on 07-29-2024 Immature granulocytes/100 WBC (Bld) 0.500 % 0.0-0.9 [facility] Comment on above: IG% - Immature Granu locytes (promyelocytes, myelocytes and metamyelocytes) > 1% indicates that a LEFT SHIFT is Present. International normalized rat io (INR) calculationOrdered By: Albin Nugent on 07-29-2024 INR Coag (Bld) [Relative time] 1.1 {INR} [facility] L499.0042on 07-29-2024 Trop T High Sen 19 ng/L Normal <=22 [facility] Comment on above: Performed By: #### L 499.0042 ####[facility] [address] [place], [address] L499.0043on 07-29-2024 Trop T High Sen Normal <=22 [facility] Comment on above: Result Comment: Canc elled via OM: Order cancelled - Patient discharged Performed By: #### L 499.0043 #### [facility] [address] [place], [address] L501.4021on 07-29-2024 Trop T High Sen 17 ng/L Normal <=22 [facility] Comment on above: Performed By: #### L 300.3900, L300.4310, L100.0100, L501.4021, L500.2500 ####[facility] [address] [place], [address] Laboratory - Chemistry and C hemistry - challengeon 07-29-2024 Magnesium [Mass/Vol] 1.9 mg/dL 1.6 - 2 .6 mg/dL [facility] Procalcitonin [Mass/Vol] 0.02 ng/mL [facility] - 0.07 ng/mL [facility] Average glucose Estimated from glycated hemoglobin (Bld) [Mass/Vol] 117 mg/dL [facility] Laboratory - Drug toxicology Ordered By: Donna Hernandez on 07-29-2024 Amphetamines Ql (U) Negative Negative [facility] Barbiturates screen method Nom (U) Negative Negative [facility] Benzodiazepines screen method Nom (U) Negative Negative [facility] Cocaine Ql (U) Negative Negative [facility] th Methadone Ql (U) Negative Negative [facility] alth Opiates Screen Ql (U) Negative Negative [facility] Laboratory - Hematology and Cell countson 07-29-2024 HbA1c (Bld) [Mass fraction] 5.7 % High [facility] Comment on above: Normal less than 5.7 % Prediabetes 5.7% to 6.4% Diabetes 6.5% or higher --HgbA1C levels may not be accurate in patients who have renal disease, received recent blood transfusions, are anemic, or who have dyshemoglobinemia. MAGNESIUMon 07-29-2024 Magnesium [Mass/Vol] 1.9 mg/dL Normal 1.6-2.[address] [facility] Comment on above: Result Comment: LEONOR Polanco COMMENTS: Higher values can be expected in females during menses. Performed By: #### L [id number] #### [employer] Operator [employer]: MARY MOLINA ([id number]) [facility] ([facility]) [address] [place] [address] MCV (mean corpuscular volume ) determinationOrdered By: Albin Nugent on 07-29-2024 MCV (RBC) [Entitic vol] 88.0 fL 80-94 [facility] Magnesium [Mass/Vol]on 07-29 Interpretation and review of laboratory results Normal [facility] Higher values can be expected in females during menses. [facility] Mean corpuscular hemoglobin (MCH) determinationOrdered By: Albin Nugent on 07-29-2024 MCH (RBC) [Entitic mass] 29.1 pg 27.0-32.0 [facility] Mean corpuscular hemoglobin concentration (MCHC) determinationOrdered By: Albin Nugent on 07-29-2024 MCHC (RBC) [Mass/Vol] 33.1 g/dL 32-36 [facility] Mean platelet volume determi nationOrdered By: Albin Nugent on 07-29-2024 Platelet mean volume (Bld) [Entitic vol] 11.0 fL 6.2-12.0 [facility] Monocyte percentageOrdered B y: Albin Nugent on 07-29-2024 Monocytes/100 WBC (Bld) 6.0 % 0-10 [facility] Neutrophil percentageOrdered By: Albin Nugent on 07-29-2024 Neutrophils/100 WBC (Bld) 49.3 % 47-70 [facility] No Panel Informationon 07-29 2h Troponin HS (Serial 2nd Troponin) 8 ng/L NINF - 35 ng/L [facility] Comment on above: Rising or falling tr oponin delta below 2 ng/L as compared to baseline value suggests that acute cardiac injury is unlikely. Interpretation and review of laboratory results Normal [facility] Interpretation and review of laboratory results Normal [facility] Troponin HS Serial Baseline 8 ng/L NINF - 35 ng/L [facility] Comment on above: In individuals prese nting with symptoms > 2h, a baseline troponin <= 5 ng/L suggests acute cardiac injury is unlikely and further serial testing is generally not indicated. [facility] Interpretation and review of laboratory results Abnormal [facility] HbA1c values of 5.7-6.4 percent indicate an increased risk for developing diabetes mellitus. HbA1c values greater than or equal to 6.5 percent are diagnostic of diabetes mellitus. For diagnosis of diabetes in individuals without unequivocal hyperglycemia, results should be confirmed by repeat testing. [facility] Radiology Study observation (narrative) [facility] latrice No Panel InformationOrdered By: Donna Hernandez on 07-29-2024 Interpretation and review of laboratory results Normal [facility] OXYCODONE/OXYMORPHONE Negative Negative [facility] PCP Negative Negative [facility] The expected value for the drugs listed above is Negative. The following drugs or drug groups have been screened for by Immunoassay at the following thresholds: Amphetamine class(1000 ng/mL) Barbiturates(200 ng/mL Benzodiazepines(200 ng/mL) Cocaine(300 ng/mL) Methadone(300 ng/mL) Opiates(300 ng/mL) Oxycodone(100 ng/mL) PCP(25 ng/mL) POSITIVE results are NOT confirmed by a more specific alternative method unless requested. If confirmation is needed, request confirmation under separate order. NOTE: These results are for medical treatment only. Analysis performed using non-forensic procedures. [facility] Nucleated red blood cell per centageOrdered By: Albin Nugent on 07-29-2024 Nucleated RBC/100 WBC (Bld) [Ratio] 0 % 0-5 [facility] PHOSPHORUSon 07-29-2024 Phosphate [Mass/Vol] 3.0 mg/dL Normal 2.3-4.7 [facility] [employer] [facility] Comment on above: Performed By: #### L [id number] #### Milling Machine Operator Gear: MARY MOLINA ([id number]) [facility] ([facility]) [address] [place] [address] PROCALCITONIN TESTon 025 PROCALCITONIN 0.02 ng/mL Normal <0.07 [facility] Comment on above: Result Comment: LEONOR Polanco COMMENTS: PCT <0.50 = Low risk of severe sepsis and/or septic shock. PCT >2.00 = High risk of severe sepsis and/or septic shock. Performed By: #### L [id number] #### Milling Machine Operator Gear: MARY MOLINA ([id number]) [facility] ([facility]) [address] [place] [address] Partial Thromboplast Timeon 07-29-2024 aPTT Coag (Bld) [Time] 24.3 s Normal 24.1-36.2 [facility] Comment on above: Performed By: #### L 300.3900, L300.4310, L100.0100, L501.4021, L500.2500 ####[facility] [address] [place], [address] Phosphate [Moles/Vol]on 07-15 Interpretation and review of laboratory results Normal [facility] Phosphate [Mass/Vol] 3 mg/dL 2.3 - 4 .7 mg/dL [facility] Platelet countOrdered By: Nabeel Nugent on 07-29-2024 Platelets (Bld) [#/Vol] 232 10*3/uL 150-450 [facility] Potassium measurement (mass/ volume)Ordered By: Albin Nugent on 07-29-2024 Potassium (Unsp spec) [Mass/Vol] 4.3 mmol/L 3.3-5.1 [facility] Procalcitonin [Mass/Vol]on 0 07-29-2024 Interpretation and review of laboratory results Normal [facility] PCT <0.50 = Low risk of severe sepsis and/or septic shock. PCT >2.00 = High risk of severe sepsis and/or septic shock. [facility] Progress Noteon 07-29-2024 Progress Note NCC Called about patient admission. 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 No trauma. No anticoagulation History. NIHSS 4 per primary team. Non aneurysmal, nontraumatic cortical SAH - MRI and MRV - SBP 130-150mmHg - Routine EEG Demetri Quinonez, Normal [facility] Prothrombin Time w/INRon INR Coag (PPP) [Relative time] 1.1 {INR} Normal [facility] Comment on above: Performed By: #### L 300.3900, L300.4310, L100.0100, L501.4021, L500.2500 ####[facility] [address] [place], [address] PT Coag (PPP) [Time] 14.5 s Normal 11.7-14.9 [facility] Comment on above: Performed By: #### L 300.3900, L300.4310, L100.0100, L501.4021, L500.2500 ####[facility] [address] [place], [address] Prothrombin timeOrdered By: Albin Nugent on 07-29-2024 PT Coag (PPP) [Time] 14.5 s 11.7-14.9 [facility] RBC Auto (Bld) [#/Vol]Ordere d By: Albin Nugent on 07-29-2024 RBC (Bld) [#/Vol] 4.74 10*6/uL 4.6-6.2 [facility] STROKE Brain/Head without Co nton 07-29-2024 STROKE Brain/Head without Cont [facility] Imaging Services [address] [place] [address] STROKE Brain/Head without Cont MR#: [id number] Acct: [id number] Name: EFRAÍN MEREDITH Rep #: [id number] : 1935 M 88 From: Meredith Morton nd, MD PCP: Dr. Devon Stokes, Status: REG ER Study: STROKE Brain/Head without Cont Date of Exam: 0 07/29/24 Exam# [id number] Ordering Dr: Albin Nugent MD EXAM: STROKE BRAIN/HEAD WITHOUT CONT CLINICAL HISTORY: 88 y/o M with NEURO DEFICIT, ACUTE, STROKE SUSPECTED. COMPARISON: None. TECHNIQUE: Routine CT imaging of the head without IV contrast. Additional multiplanar reformats were obtained. Dose reduction techniques were used including intermediate exposure control (AEC),iterative reconstruction technique, and/or mA and/or KV dose adjustments based on patient's size. FINDINGS: Moderate generalized cerebral volume loss with concordant prominence of the ventricles and subarachnoid spaces. Moderate-sized hyperdensity within the right postcentral gyrus. Moderate patchy supratentorial white matter hypodensities. The tate-white matter interfaces are otherwise maintained. Prior ocular lens replacements. The visualized paranasal sinuses and mastoids are unremarkable. No acute calvarial fracture or scalp hematoma. CT/STROKE Brain/Head without Cont IMPRESSION: 1. Intraparenchymal hemorrhage within the right postcentral gyrus. 2. Findings of chronic microvascular ischemic changes and age-related changes. Dr. Lozano discussed these findings via telephone with Dr. Nugent at 12:49 p.m. on 07/29/2024. Reading Location: [id number] CC: Dr. Albin Nugent MD; Dr. Devon Stokes DO Motion Picture Camera Operator: Signed Normal [facility] STROKE CTA Head AND Neck W/C onon 07-29-2024 STROKE CTA Head AND Neck W/Con [facility] Imaging Services [address] [place] [address] STROKE CTA Head AND Neck W/Con MR#: [id number] Acct: [id number] Name: EFRAÍN MEREDITH Rep #: [id number] : 1935 M 88 From: Frank Pearson DO PCP: Dr. Devon Stokes DO Status: REG ER Study: STROKE CTA Head AND Neck W/Con Date of Exam: 0 07/29/24 Exam# [id number] Ordering Dr: Albin Nugent MD PROCEDURE: STROKE CTA HEAD AND NECK W/CON 07/29/2024 REASON FOR EXAM: NEURO DEFICIT, ACUTE, STROKE SUSPECTED TECHNIQUE: STROKE CTA HEAD AND NECK W/CON Multiplanar and multisequence images were obtained. CONTRAST: Isovue 370 VOLUME: 100 mL One or more dose reduction techniques were used (e.g., Automated exposure control, adjustment of the mA and/or kV according to patient size, use of iterative reconstruction technique). RADIATION DOSE SUMMARY: CTDlvol: 44.99 mGy DLP: 812.98 mGycm FINDINGS: Aortic Arch: Unremarkable Brachiocephalic and Subclavians: Normal RIGHT Carotid: Right CCA: Unremarkable Right ICA: Normal Maximum stenosis (NASCET): 0 % Right ECA: Patent LEFT Carotid: Left CCA: Normal Left ICA: Normal Maximum stenosis (NASCET): 20 % Left ECA: Calculus at the ostium. No flow-limiting stenosis. Vertebrals: Normal RIGHT Vertebral: Intracranial portion is small caliber. LEFT Vertebral: Intracranial portion is patent, small caliber. Anatomy: Unremarkable Aneurysm or avm: None. Anterior cerebral arteries: Patent. Middle cerebral arteries: Patent. Basilar artery: Patent. Posterior cerebral arteries: Patent. Other major branches of the posterior circulation: Patent. Major venous structures: Normal Other findings: Neck: None. 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 CT/STROKE CTA Head AND Neck W/Con IMPRESSION: No large vessel occlusion identified. No aneurysm or AVM identified. Hemorrhagic infarct right parietal lobe Reading Location: [facility] CC: Dr. Albin Nugent MD; Dr. Devon Stokes DO Motion Picture Camera Operator: Signed Normal [facility] Serum creatinine measurement (mass/volume)Ordered By: Albin Nugent on 07-29-2024 Creatinine [Mass/Vol] 1.04 mg/dL 0.70-1.20 [facility] Serum glucose measurement (m ass/volume)Ordered By: Albin Nugent on 07-29-2024 Glucose [Mass/Vol] 108 mg/dL High 70-99 [facility] Serum or plasma calcium yoshi urement (mass/volume)Ordered By: Albin Nugent on 07-29-2024 Calcium [Mass/Vol] 9.3 mg/dL 7.6-11.0 [facility] Serum or plasma urea nitroge n measurement (mass/volume)Ordered By: Albin Nugent on 07-29-2024 Urea nitrogen [Mass/Vol] 13 mg/dL 4-19 [facility] Sodium levelOrdered By: Albin Nugent on 07-29-2024 Sodium [Moles/Vol] 138 mmol/L 133-145 [facility] Troponin T.cardiac [Mass/vol ume] in Serum or Plasma by High sensitivity methodOrdered By: Albin Nugent on 07-29-2024 Troponin T.cardiac High sensitivity method [Mass/Vol] 19 ng/L <22 [facility] Troponin T.cardiac High sensitivity method [Mass/Vol] 17 ng/L <22 [facility] UNCONFIRMED DRUG SCREENon Amphetamines Ql (U) Negative Normal Negative [facility] Comment on above: Performed By: #### L [id number] #### Milling Machine Operator Gear: MARY MOLINA ([id number]) [facility] ([facility]) [address] [place] [address] BARBITURATES Negative Normal Negative [facility] Comment on above: Performed By: #### L [id number] #### Milling Machine Operator Gear: MARY MOLINA ([id number]) [facility] ([facility]) [address] [place] [address] Benzodiazepines Ql (U) Negative Normal Negative [facility] Comment on above: Performed By: #### L [id number] #### Milling Machine Operator Gear: MARY MOLINA ([id number]) [facility] ([facility]) [address] [place] [address] Cocaine Ql (U) Negative Normal Negative [facility] Comment on above: Performed By: #### L [id number] #### Milling Machine Operator Gear: MARY MOLINA ([id number]) [facility] ([facility]) [address] [place] [address] Methadone Ql (U) Negative Normal Negative [facility] Comment on above: Performed By: #### L [id number] #### Milling Machine Operator Gear: MARY MOLINA ([id number]) [facility] ([facility]) [address] [place] [address] Opiates Ql (U) Negative Normal Negative [facility] Comment on above: Performed By: #### L [id number] #### Milling Machine Operator Gear: MARY MOLINA ([id number]) [facility] ([facility]) [address] [place] [address] OXYCODONE/OXYMORPHONE Negative Normal Negative [facility] Comment on above: Performed By: #### L [id number] #### Milling Machine Operator Gear: MARY MOLINA ([id number]) [facility] ([facility]) [address] [place] [address] PCP Negative Normal Negative [facility] Comment on above: Result Comment: LEONOR R COMMENTS: The expected value for the drugs listed above is Negative. The following drugs or drug groups have been screened for by Immunoassay at the following thresholds: Amphetamine class(1000 ng/mL) Barbiturates(200 ng/mL Benzodiazepines(200 ng/mL) Cocaine(300 ng/mL) Methadone(300 ng/mL) Opiates(300 ng/mL) Oxycodone(100 ng/mL) PCP(25 ng/mL) POSITIVE results are NOT confirmed by a more specific alternative method unless requested. If confirmation is needed, request confirmation under separate order. NOTE: These results are for medical treatment only. Analysis performed using non-forensic procedures. Performed By: #### L [id number] #### Milling Machine Operator Gear: MARY MOLINA ([id number]) [facility] ([facility]) [address] [place] [address] Urinalysis complete panel (U )Ordered By: Cinthia Solo on 07-29-2024 Bilirubin Ql (U) Negative Negative mg/dL [facility] Clarity (U) Clear Clear [facility] Color (U) Colorless Lt. Yellow [facility] Glucose Ql (U) Normal Normal (<70) mg/dL [facility] Hemoglobin Ql (U) Negative Negative mg/dL [facility] Interpretation and review of laboratory results Abnormal [facility] Ketones (U) [Mass/Vol] Negative Negat bonita mg/dL [facility] Leukocyte esterase Test strip Ql (U) Negative Negative Salvatore/uL [facility] Nitrite Ql (U) Negative Negative [facility] th pH (U) 7.0 [pH] 5.0 - 8.0 pH [facility] Protein (U) [Mass/Vol] Negative Negat bonita mg/dL [facility] Specific gravity (U) [Rel density] High 1.005 - 1.030 [facility] Urobilinogen (U) [Mass/Vol] Normal Normal (0-1) mg/dL [facility] A specimen with <=10 WBC is not consistent with inflammation. This specimen will not reflex to a urine culture. [facility] White blood cell (WBC) count Ordered By: Albin Nugent on 07-29-2024 WBC (Bld) [#/Vol] 11.2 10*3/uL High 4.4-11.0 [facility] XR ABDOMEN 1 VIEWon 07-30-19 25 XR ABDOMEN 1 VIEW Patient Name: EFRAÍN MEREDITH [facility] 1935 [id number] Exam Date/Time: 07/29/2024 17:37 Procedure: XR ABDOMEN 1 VIEW Ordering Provider: LEE BETHANY Reason For Exam: MRI clearance ABDOMEN -1 VIEW: CLINICAL INDICATION: MRI clearance TECHNIQUE: 1 view of abdomen and pelvis COMPARISON: None. FINDINGS: Increased colonic fecal residue is suggestive of constipation. Otherwise the bowel gas pattern is nonspecific, nonobstructed. Contrast is present within the urinary bladder and collecting systems from the earlier CTA. Multilevel thoracolumbar degenerative change. Left hip ORIF. IMPRESSION: 1. Increased colonic fecal residue is suggestive of constipation. 2. The patient may proceed with MRI (in regards to this study) Report Dictated on Electronically Signed By: Zhou Robert MD Electronically Signed Date/Time: 07/29/2024 9:57 PM EDT [facility] XR Abdomen Single viewon 1. Increased colonic fecal residue is suggestive of constipation. 2. The patient may proceed with MRI (in regards to this study) Report Dictated on Electronically Signed By: Zhou Robert MD Electronically Signed Date/Time: 07/29/2024 9:[address] [facility] Patient Name: EFRAÍN MEREDITH : 1935 Exam Date/Time: 07/29/2024 17:37 Procedure: XR ABDOMEN 1 VIEW Ordering Provider: LEE BETHANY Reason For Exam: MRI clearance ABDOMEN -1 VIEW: CLINICAL INDICATION: MRI clearance TECHNIQUE: 1 view of abdomen and pelvis COMPARISON: None. FINDINGS: Increased colonic fecal residue is suggestive of constipation. Otherwise the bowel gas pattern is nonspecific, nonobstructed. Contrast is present within the urinary bladder and collecting systems from the earlier CTA. Multilevel thoracolumbar degenerative change. Left hip ORIF. [facility] Zhou Robert MD - 07/29/2024 Patient Name: EFRAÍN MEREDITH : 1935 Exam Date/Time: 07/29/2024 17:37 Procedure: XR ABDOMEN 1 VIEW Ordering Provider: LEE BETHANY Reason For Exam: MRI clearance ABDOMEN -1 VIEW: CLINICAL INDICATION: MRI clearance TECHNIQUE: 1 view of abdomen and pelvis COMPARISON: None. FINDINGS: Increased colonic fecal residue is suggestive of constipation. Otherwise the bowel gas pattern is nonspecific, nonobstructed. Contrast is present within the urinary bladder and collecting systems from the earlier CTA. Multilevel thoracolumbar degenerative change. Left hip ORIF. IMPRESSION: 1. Increased colonic fecal residue is suggestive of constipation. 2. The patient may proceed with MRI (in regards to this study) Report Dictated on Electronically Signed By: Zhou Robert MD Electronically Signed Date/Time: 07/29/2024 9:57 PM EDT [facility] Radiology Study observation (narrative) [facility] XR CHEST 1 VIEWon 07-29-2024 XR CHEST 1 VIEW Patient Name: EFRAÍN MEREDITH : 1935 Exam Date/Time: 07/29/2024 17:36 Procedure: XR CHEST 1 VIEW Ordering Provider: LEE BETHANY Reason For Exam: ICH CHEST X-RAY AP CLINICAL INDICATION: ICH AP radiograph of the chest was obtained. COMPARISON: None FINDINGS: The cardiac silhouette is mildly enlarged. A cardiac device overlies the left chest wall. No focal consolidation or opacification is seen within the lungs. No pleural effusion or pneumothorax is identified. Degenerative changes of the thoracic spine are noted. IMPRESSION: No acute cardiopulmonary process. Report Dictated on Electronically Signed By: Zhou Robert MD Electronically Signed Date/Time: 07/29/2024 9:54 PM EDT [facility] XR Chest Single viewon 07-29 No acute cardiopulmonary process. Report Dictated on Electronically Signed By: Zhou Robert MD Electronically Signed Date/Time: 07/29/2024 9:54 PM EDT [facility] Patient Name: EFRAÍN MEREDITH : 1935 Exam Date/Time: 07/29/2024 17:36 Procedure: XR CHEST 1 VIEW Ordering Provider: LEE BETHANY Reason For Exam: ICH CHEST X-RAY AP CLINICAL INDICATION: ICH AP radiograph of the chest was obtained. COMPARISON: None FINDINGS: The cardiac silhouette is mildly enlarged. A cardiac device overlies the left chest wall. No focal consolidation or opacification is seen within the lungs. No pleural effusion or pneumothorax is identified. Degenerative changes of the thoracic spine are noted. [facility] Zhou Robert MD - 07/29/2024 Patient Name: EFRAÍN MEREDITH : 1935 [id number] Exam Date/Time: 07/29/2024 17:36 Procedure: XR CHEST 1 VIEW Ordering Provider: LEE BETHANY Reason For Exam: ICH CHEST X-RAY AP CLINICAL INDICATION: ICH AP radiograph of the chest was obtained. COMPARISON: None FINDINGS: The cardiac silhouette is mildly enlarged. A cardiac device overlies the left chest wall. No focal consolidation or opacification is seen within the lungs. No pleural effusion or pneumothorax is identified. Degenerative changes of the thoracic spine are noted. IMPRESSION: No acute cardiopulmonary process. Report Dictated on Electronically Signed By: Zhou Robert MD Electronically Signed Date/Time: 07/29/2024 9:54 PM EDT [facility] Radiology Study observation (narrative) [facility] 36on 06-08-2024 36 Last OV- 06/04/24 CMP- 08/25/22 Normal [facility] Office Visiton 06-04-2024 Follow-up visit [id number] Marcia Meredith 1935 M Date Provider Department Center 06/04/2024 [id number] [facility] [address] Ar Family History Problem Relation Age of Onset Heart failure Mother Heart Surgery Mother Pacemaker Brother Family Status - Relation Status Age at Mother Brother Alive Father Level of Service:67201 [place] OFFICE/OUTPATIENT ESTABLISHED MOD MDM 30 MIN Reason for Visit and Comments: Annual Exam [83] Normal [facility] Progress Noteon 06-04-2024 Progress Note [facility] Cardiology Note Chief Complaint: Chief Complaint Patient presents with Annual Exam History of Present Illness: Efraín Meredith is a 88 y.o. male presents for follow-up status post ICD implantation and the primary prevention of sudden cardiac . Overall from a cardiac standpoint has no complaints whatsoever. No lightheadedness presyncope or syncope. He was in [place] in the winter and while there in April 10 had an episode of nonsustained ventricular tachycardia accelerating into the ventricular fibrillation zone spontaneously terminating. No significant anginal complaints. His reports he actually he is 50 years old. 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 Allergic/Immunologic: Negative. Neurological: Negative. Hematological: Negative. Psychiatric/Behavioral : Negative. Physical Examination: Vitals: Vitals: 06/04/24 1454 [...] 08/25/2022 BUN 18 08/25/2022 CREATININE 1.06 08/25/2022 @[facility]@ Lab Results Component Value Date CHOL 118 08/18/2022 Lab Results Component Value Date TRIG 74 08/18/2022 Lab Results Component Value Date HDL 58 08/18/2022 Lab Results Component Value Date LDLCALC 45 08/18/2022 Assessment and Plan: ICD: Very well-healed. Lead panel is remain excellent. Normal function is observed. Will follow device clinic per rout (more content not included)... Normal [facility] 36on 02-23-2024 36 OV 05/2023 JKS FU 06/04/24 Normal [facility] Discharge Instructionon 01-14 Discharge Instruction [facility] Medical Records Department [address] [place] [address] Instructions for Home/Discharge Instructions 02/01/24 1119 MR#: [id number] Acct: [id number] Name: EFRAÍN MEREDITH Rep #: [id number] : 1935 88 From: Mark Muñiz MD PCP: Dr. Devon Stokes DO Status[place] [facility] [place] Instructions Diet Discharge Diet: No restrictions [...] Up With: Mark Muñiz MD When: Call [phone] for an appointment Test Results: Test results from this visit will be discussed in further detail at your follow-up appointment, if applicable. Discharge Plan Admission Attending Provider: Mark Muñiz Primary Care Provider: Devon Stokes Instructions Print Language: Urdu Discharge Orders/Prescriptions Prescriptions: No Action losartan 50 [...] PO BID Referrals / Follow Up: Devon Stokes DO [Primary Care Provider] - Disposition Disposition (needs filled in before D/C Order can be placed): Home, Self Care 02/01/24 1119 Mark Muñiz MD CC: Dr. Devon Stokes, DO Signed Normal [facility] MR/POSTOP.ANEon 02-01-2024 MR/POSTOP.[facility] Medical Records Department [address] [place] [address] Anesthesia Postop Eval I 02/01/24 1127 MR#: [id number] Acct: [id number] Name: EFRAÍN MEREDITH Rep #: [id number] : 1935 88 From: Shameka Garza PCP: Dr. Devon Stokes, DO Status:REG SDC Y Race: C Location: [place] [address] Anesthesia: Postop Eval I Current Vital Signs Temperature: 98 F Pulse Rate: 62 Blood Pressure: 91/53 Respiratory Rate: 18 Pulse Ox: 94 Assessment Airway patent: Yes Spontaneous unlabored respirations: Yes nausea: No Vomiting: No Anesthesia Complication: No Fluid Hydration Crystalloid volume administer (ml): 800 Total IV fluid infused: 800 Progress Note Anesthesia document: Postop Eval 1 completed: Yes 02/01/24 1128 Date Shameka Walsh Signature: Date CC: Signed Normal [facility] [id number] 02-01-2024 MR/POSTOPAN2 [facility] Medical Records Department [address] [place] [address] Anesthesia Postop Eval II 02/01/24 1134 MR#: [id number] Acct: [id number] Name: EFRAÍN MEREDITH Rep #: [id number] : 1935 88 From: Ricardo Blankenship MD PCP: Dr. Devon Stokes, DO Status:REG SDC Y Race: C Location: [place] [address] Anesthesia Postop Eval I Sum Postop Eval Completion status Anesthesia document: Postop Eval 1 completed: Yes Anesthesia Postop Eval I Summary Anesthesia Postop Eval I Summary: Anesthesia Postop Eval I: Assessment Summary Airway patent Yes 02/01/24 11:27 COMPREHENSIVE ADVISOR.CSIR Spontaneous unlabored Yes 02/01/24 11:27 COMPREHENSIVE ADVISOR.CSIR respirations Mental status nausea No 02/01/24 11:27 COMPREHENSIVE ADVISOR.CSIR Vomiting No 02/01/24 11:27 COMPREHENSIVE ADVISOR.CSIR Anesthesia Postop Eval I: Fluid Summary Crystalloid volume administer 800 02/01/24 11:27 COMPREHENSIVE ADVISOR.CSIR (ml) Colloids volume administered ( ml) Blood Product volume administered (ml) Total IV fluid infused 800 02/01/24 11:27 COMPREHENSIVE ADVISOR.CSIR Anesthesia Postop Eval I: Summary Notes Anesthesia Complication No 02/01/24 11:27 COMPREHENSIVE ADVISOR.CSIR Anesthesia Complication Comment: Post-operative progress note Anesthesia: Postop Eval II Evaluation Mental status: Awake Pain Level: 0 nausea: No Vomiting: No 02/01/24 1134 Date Ricardo Alonsoign Signature: Date CC: Signed Normal [facility] Operative Reporton 4 Operative Report [facility] Medical Records Department [address] [place] [id number] Operative Report 02/01/24 1119 MR#: [id number] Acct: [id number] Name: EFRAÍN MEREDITH Rep #: [id number] : 1935 88 From: Mark Muñiz MD PCP: Dr. Devon Stokes, DO Status:[facility] Location: [place] [address] Operative Report (Standard) Operative Information Date of Procedure: 02/01/24 Pre-Operative Diagnosis: Phimosis and meatal stenosis Post-Operative Diagnosis: The same Surgery/Procedure Performed: Circumcision and dilation of meatus and flexible cystoscopy piece jobber: No Type of Anesthesia: General RN Documented Start/Stop Times: Operation Date: 02/01/24 10:00 Case Time Into Pre-Op 02/01/24 07:57 Out of Pre-Op 02/01/24 10:33 Anesthesia Start 02/01/24 10:37 Into Room 02/01/24 10:37 Procedure Start 02/01/24 10:47 Procedure End 02/01/24 11:17 Procedure Start Time: 10:47 Procedure Stop Time: 11:20 Select all DRAINS/GRAFTS/IMPLANTS that apply: None Estimated Blood Loss: 2 [...] is supertight started off with a 12 Latvian Dragan dilators and dilated up to 32 Latvian. I then a cystoscopy was done entire [...] Circumcision completed meatus dilated up to 32 Latvian cystoscopy confirms normal channel no strictures prostate and large bladder is normal Complications Complications: No Admit VTE Documentation VTE Present on Admission: No VTE Mechan Device Prophylaxis: SCD's VTE Pharm Prophylaxis ordered?: No 02/01/24 1122 Cosigner Signature (if applicable): CC: Dr. Devon Stokes DO; Dr. Mark Muñiz MD Signed [facility] 36on 01-20-2024 36 Faxed over completed form to [facility] Pre Adm Testing Dept. Paperwork sent to scanning thereafter. [facility] 36 Placed completed for m on Sadie's desk Normal [facility] 36on 01-19-2024 36 Device info complete d on form. Placed on Dr. Calle's desk to review and sign Normal [facility] 36 Received via fax Urgent Stat Fax re: office paperwork and device info. Will give to Nenita to fill out and have doctor sign thereafter. Normal [facility] CREATININE FINGERSTICKon CREATININE WB < 1.0 Normal 0.70-1.30 [facility] Comment on above: Performed By: #### L 9100.0200 ####[facility] [address] [facility] [place], [address] EGFR WB > 60.0000 Normal >60 [facility] Comment on above: Performed By: #### L 9100.0200 ####[facility] [address] [facility]. [place], [place], [address] CT Abd/Pelvis W/WO Contrasto n 01-04-2024 CT Abd/Pelvis W/WO Contrast [facility] Imaging Services [address] [place], [place] [address] CT Abd/Pelvis W/WO Contrast MR#: [id number] Acct: [id number] Name: EFRAÍN MEREDITH Rep #: [id number] : 1935 M 88 From: Emil polanco MD PCP: Dr. Devon Stokes, DO Status: REG CLI Study: CT Abd/Pelvis W/WO Contrast Date of Exam: 12/16 Exam# [id number] Ordering Dr: Mark Muñiz MD [id number] STUDY: CT ABDOMEN AND PELVIS WITH AND [...] at 11:13 EST , CC: Dr. Devon Stokes DO; Dr. Mark Muñiz MD Motion Picture Camera Operator: Signed Normal [facility] Urine Cultureon 12-21-2023 URC Culture exhibits no growth. Normal [facility] Comment on above: Performed By: #### M 100.5356 ####[facility] [address] [place], [address] Emergency Department Summary on 11-28-2023 Emergency Department Summary [facility] Medical Records Department [address] [place] [address] Emergency Department Summary 11/28/23 MR#: [id number] Acct: [id number] Name: EFRAÍN MEREDITH Rep #: [id number] : 1935 88 From: Ye Rogers MD PCP: Dr. Devon Stokes, Status:REG ER Location: ED HPI History of [...] history of prostate problems. Feeling well otherwise. [facility] Medical History Cardiac defibrillator in place Stroke [...] the ur (more content not included)... Normal [facility] Urinalysis, Completeon 11-27 RBC 0-5 SEEN Normal 0-5 [facility] Comment on above: Order Comment: CHARITY CTOR TO SPECIFY Performed By: #### L 400.0001 ####[facility] [address] [place], [place], [id number] BACTERIA 0 SEEN Normal None Seen [facility] Comment on above: Order Comment: CHARITY CTOR TO SPECIFY Performed By: #### L 400.0001 ####[facility] [address] [place], [address] EPI,SQUAMOUS 0 SEEN Normal 0-5 [facility] Comment on above: Order Comment: CHARITY CTOR TO SPECIFY Performed By: #### L 400.0001 ####[facility] [address] [place], [address] Mucus Ql (Urine sed) 0 SEEN Normal [facility] Comment on above: Order Comment: CHARITY CTOR TO SPECIFY Performed By: #### L 400.0001 ####[facility] [address], [address] WBC 0 SEEN Normal 0-5 [facility] Comment on above: Order Comment: COLLE CTOR TO SPECIFY Performed By: #### L 400.0001 ####[facility] [address] [place], [address] CBC W/Diff, Automatedon 08-0 7-2024 Absolute Lymph 4.33 X10 3/uL Normal 0.83-4.51 [facility] Comment on above: Performed By: #### L 500.4100, L500.4050, L100.0100 #### [facility] [address] [place], [address] Absolute Neut 4.8 X10 3/uL Normal 2.0-7.7 [facility] Comment on above: Performed By: #### L 500.4100, L500.4050, L100.0100 #### [facility] [address] [place], [address] Basophils/100 WBC (Bld) 0.7 % Normal 0-1 [facility] Comment on above: Performed By: #### L 500.4100, L500.4050, L100.0100 #### [facility] [address] [place], [address] Eosinophils/100 WBC (Bld) 2.0 % Normal 0-5 [facility] Comment on above: Performed By: #### L 500.4100, L500.4050, L100.0100 #### [facility] [address] [place], [address] Erythrocyte distribution width (RBC) [Ratio] 14.2 % Normal 11.6-14.6 [facility] Comment on above: Performed By: #### L 500.4100, L500.4050, L100.0100 #### [facility] [address] [place], [address] Hematocrit (Bld) [Volume fraction] 48.2 % Normal 40-54 [facility] Comment on above: Performed By: #### L 500.4100, L500.4050, L100.0100 #### [facility] [address] [place], [address] Hemoglobin (Bld) [Mass/Vol] 14.8 g/dL Normal 13.0-16.5 [facility] Comment on above: Performed By: #### L 500.4100, L500.4050, L100.0100 #### [facility] [address] [place], [address] IG% 0.300 Normal 0.0-0.9 [facility] Comment on above: Result Comment: IG% - Immature Granulocytes (promyelocytes, myelocytes and metamyelocytes) > 1% indicates that a LEFT SHIFT is Present. Performed By: #### L 500.4100, L500.4050, L100.0100 #### [facility] [address] [place], [address] Lymphocytes/100 WBC (Bld) 43.0 % High 19-41 [facility] Comment on above: Performed By: #### L 500.4100, L500.4050, L100.0100 #### [facility] [address] [place], [address] MCH (RBC) [Entitic mass] 27.9 pg Normal 27.0-32.0 [facility] Comment on above: Performed By: #### L 500.4100, L500.4050, L100.0100 #### [facility] [address] [place], [address] MCHC (RBC) [Mass/Vol] 30.7 g/dL Low 32-36 [facility] Comment on above: Performed By: #### L 500.4100, L500.4050, L100.0100 #### [facility] [address] [place], [address] MCV (RBC) [Entitic vol] 90.9 fL Normal 80-94 [facility] Comment on above: Performed By: #### L 500.4100, L500.4050, L100.0100 #### [facility] [address] [place], [address] Monocytes/100 WBC (Bld) 6.9 % Normal 0-10 [facility] Comment on above: Performed By: #### L 500.4100, L500.4050, L100.0100 #### [facility] [address] [place], [address] Neutrophils/100 WBC (Bld) 47.1 % Normal 47-70 [facility] Comment on above: Performed By: #### L 500.4100, L500.4050, L100.0100 #### [facility] [address] [place], [address] Nucleated RBC (Bld) [#/Vol] 0 10*3/uL Normal 0-5 [facility] Comment on above: Performed By: #### L 500.4100, L500.4050, L100.0100 #### [facility] [address] [place], [address] Platelet mean volume (Bld) [Entitic vol] 11.6 fL Normal 6.2-12.0 [facility] Comment on above: Performed By: #### L 500.4100, L500.4050, L100.0100 #### [facility] [address] [place], [address] Platelets (Bld) [#/Vol] 240 10*3/uL Normal 150-450 [facility] Comment on above: Performed By: #### L 500.4100, L500.4050, L100.0100 #### [facility] [address] [place], [address] RBC (Bld) [#/Vol] 5.30 10*6/uL Normal 4.6-6.2 [facility] Comment on above: Performed By: #### L 500.4100, L500.4050, L100.0100 #### [facility] [address] [place], [address] RDW SD 47.7 fl High 35.1-43.9 [facility] Comment on above: Performed By: #### L 500.4100, L500.4050, L100.0100 #### [facility] [address] [place], [address] WBC (Bld) [#/Vol] 10.1 10*3/uL Normal 4.4-11.0 [facility] Comment on above: Performed By: #### L 500.4100, L500.4050, L100.0100 #### [facility] [address] [place], [address] Comprehensive Metabolic Prof [facility] 09-21-2023 Albumin [Mass/Vol] 3.7 g/dL Normal 3.2-5.0 [facility] Comment on above: Performed By: #### L 500.4100, L500.4050, L100.0100 #### [facility] [address] [place], [address] Albumin/Globulin [Mass ratio] 1.0 {ratio} Normal 0.9-2.4 [facility] Comment on above: Performed By: #### L 500.4100, L500.4050, L100.0100 #### [facility] [address] [place], [address] ALK P 88 U/L Normal 45-117 [facility] Comment on above: Performed By: #### L 500.4100, L500.4050, L100.0100 #### [facility] [address] [place], [address] ALT [Catalytic activity/Vol] 25 U/L Normal 16-61 [facility] Comment on above: Performed By: #### L 500.4100, L500.4050, L100.0100 #### [facility] [address] [place], [address] AST [Catalytic activity/Vol] 18 U/L Normal 15-37 [facility] Comment on above: Performed By: #### L 500.4100, L500.4050, L100.0100 #### [facility] [address] [place], [address] Bilirubin [Mass/Vol] 1.10 mg/dL High 0.20-1.00 [facility] Comment on above: Result Comment: For patients on eltrombopag therapy, use of Dimension [place] TBIL is not recommended. Performed By: #### L 500.4100, L500.4050, L100.0100 #### [facility] [address] [place], [address] BUN/CRE 13.9 RATIO Normal 10-20 [facility] Comment on above: Performed By: #### L 500.4100, L500.4050, L100.0100 #### [facility] [address] [place], [address] CA,Total 9.3 mg/dL Normal 8.5-10.1 [facility] Comment on above: Performed By: #### L 500.4100, L500.4050, L100.0100 #### [facility] [address] [place], [address] Chloride [Moles/Vol] 107 mmol/L Normal 98-107 [facility] Comment on above: Performed By: #### L 500.4100, L500.4050, L100.0100 #### [facility] [address] [place], [address] CO2 [Moles/Vol] 27.0 mmol/L Normal 21.0-32.0 [facility] Comment on above: Performed By: #### L 500.4100, L500.4050, L100.0100 #### [facility] [address] [place], [address] Creatinine [Mass/Vol] 1.15 mg/dL Normal 0.70-1.30 [facility] Comment on above: Result Comment: The validity of the calculated GFR GFRAA in patients over 70 years has not been determined. Clinical correlation is essential. Performed By: #### L 500.4100, L500.4050, L100.0100 #### [facility] [address] [place], [address] EST GFR - AA 77 mL/min Normal >60 [facility] Comment on above: Result Comment: Afri can Omani GFR Calc Performed By: #### L 500.4100, L500.4050, L100.0100 #### [facility] [address] [place], [address] GAP 4 Low 5-15 [facility] Comment on above: Performed By: #### L 500.4100, L500.4050, L100.0100 #### [facility] [address] [place], [address] GFR/1.73 sq M.predicted among non-blacks MDRD (S/P/Bld) [Vol rate/Area] 64 mL/min/{1.73_m2} Normal >60 [facility] Comment on above: Result Comment: Non- GFR Calc Performed By: #### L 500.4100, L500.4050, L100.0100 #### [facility] [address] [place], [address] Globulin (S) [Mass/Vol] 3.7 g/dL Normal 2.2-4.2 [facility] Comment on above: Performed By: #### L 500.4100, L500.4050, L100.0100 #### [facility] [address] [place], [address] Glucose [Mass/Vol] 97 mg/dL Normal 74-106 [facility] Comment on above: Performed By: #### L 500.4100, L500.4050, L100.0100 #### [facility] [address] [place], [address] Potassium [Moles/Vol] 4.5 mmol/L Normal 3.5-5.1 [facility] Comment on above: Performed By: #### L 500.4100, L500.4050, L100.0100 #### [facility] [address] [place], [address] Sodium [Moles/Vol] 138 mmol/L Normal 136-145 [facility] Comment on above: Performed By: #### L 500.4100, L500.4050, L100.0100 #### [facility] [address] [place], [address] T PROT 7.4 g/dL Normal 6.4-8.2 [facility] Comment on above: Performed By: #### L 500.4100, L500.4050, L100.0100 #### [facility] [address] [place], [address] Urea nitrogen [Mass/Vol] 16 mg/dL Normal 7-18 [facility] Comment on above: Performed By: #### L 500.4100, L500.4050, L100.0100 #### [facility] [address] [place], [address] Internal Medicine Office Vis irish 09-21-2023 Internal Medicine Office Visit [facility] [address] [place] [address] [address] [place] [address] OFFICE VISIT Date of Service: 09/21/23 MR#: [id number] Acct: [id number] Name: EFRAÍN MEREDITH Rep #: [id number] : 1935 Provider: Dr. Devon simpson DO Age/Sex: 87/M Location[place] [facility] Status: Signed Intake Vital Signs 07/05/23 09:30 [...] Reasons: YEARLY Chief Complaint: Annual physical exam. Financial Services Agent Required: No Is patient in pain?: No [...] (Updated 09/21/23 @ 09:[address] Devon Stokes DO) Cardiac defibrillator in place Stroke Surgical History (Updated 09/21/23 @ 08:19 by Sweta Chu MA) H/O cataract removal with insertion of prosthetic lens Family History (Updated 09/21/23 @ 08:21 by Sweta Chu MA) Mother CAD (coronary artery disease) Grandfather CAD (coronary artery disease) Brother Prostate cancer Sister Colon cancer Sister Throat cancer Social History (Updated 09/21/23 @ 08:22 by Sweta Chu MA) adopted: No household members: spouse housing: house [...] Chief Complaint: Annual physical exam. Details: EFRAÍN MEREDITH, is a 87 M who presents to the office today for his annual physical exam. He has been very active and spends half the year to [facility]. When he is back in [place] he is got a large garden that [...] seasonal allergy symptoms, hives or wheezing Tony/Lymp Hematologic/Lymphatic: No easy bleeding, easy bruising, enlarged lymph nodes or other Exam Const General: cooperative and no acute distress Nutritional Appearance: thin Orientation: oriented x3 HENMT Head: normal to in (more content not included)... Normal [facility] Lipid Profileon 09-21-2023 Cholesterol [Mass/Vol] 121 mg/dL Normal 200 [facility] Comment on above: Result Comment: <200 mg/dL Desirable 200-240 mg/dL Borderline >240 mg/dL High Risk Performed By: #### L 500.4100, L500.4050, L100.0100 #### [facility] [address] [place], [address] Cholesterol in HDL [Mass/Vol] 45 mg/dL Normal [facility] Comment on above: Result Comment: The drugs N-Acetylcysteine and Metamizole may falsely depress this assay. Reference Range HDL <40 mg/dL Low HDL Cholesterol HDL >or= 60 mg/dL High HDL Cholesterol Performed By: #### L 500.4100, L500.4050, L100.0100 #### [facility] [address] [place], [address] Cholesterol in LDL [Mass/Vol] 59 mg/dL Normal 0-130 [facility] Comment on above: Performed By: #### L 500.4100, L500.4050, L100.0100 #### [facility] [address] [place], [address] Cholesterol in VLDL [Mass/Vol] 17 mg/dL Normal 5-40 [facility] Comment on above: Performed By: #### L 500.4100, L500.4050, L100.0100 #### [facility] [address] [place], [address] Triglyceride [Mass/Vol] 84 mg/dL Normal [facility] Comment on above: Result Comment: The drugs N-Acetylcysteine and Metamizole may falsely depress this assay. Serum Triglycerides Reference Interval Normal <150 mg/dL Borderline high 150 - 199 mg/dL High 200 - 499 mg/dL Very High > or = 500 mg/dL Performed By: #### L 500.4100, L500.4050, L100.0100 #### [facility] [address] [place], [address] Basophil percentageOrdered B y: Devon Stokes on 08-25-2022 Bilirubin [Mass/Vol] 1.10 mg/dL 0.20-1.00 [facility] Comment on above: For patients on eltr ombopag therapy, use of Dimension [place] TBIL is not recommended. Chloride [Moles/Vol] 106 mmol/L 98-107 [facility] Glucose [Mass/Vol] 93 mg/dL 74-106 [facility] Potassium [Moles/Vol] 4.1 mmol/L 3.5-5.1 [facility] Protein [Mass/Vol] 7.5 g/dL 6.4-8.2 [facility] Sodium [Moles/Vol] 139 mmol/L 136-145 [facility] Laboratory - Chemistry and C hemistry - challengeOrdered By: Devon Stokes on 08-25-2022 ALP [Catalytic activity/Vol] 76 U/L 45-117 [facility] ALT [Catalytic activity/Vol] 36 U/L 16-61 [facility] CO2 [Moles/Vol] 28.0 mmol/L 21.0-32.0 [facility] Globulin (S) [Mass/Vol] 3.7 g/dL 2.2-4.2 [facility] Urea nitrogen/Creatinine [Mass ratio] 17.0 mg/mg 10-20 [facility] No Panel InformationOrdered By: Devon Stokes on 08-25-2022 Estimated GFR (MDRD) Amer 85 mL/min >60 [facility] Comment on above: GFR Calc Estimated GFR (MDRD) Non-Af Amer 70 mL/min >60 [facility] Comment on above: Non- GFR Calc Serum or plasma albumin yoshi urement (mass/volume)Ordered By: Devon Stokes on 08-25-2022 Albumin [Mass/Vol] 3.8 g/dL 3.2-5.0 [facility] Serum or plasma albumin/glob ulin mass ratioOrdered By: Devon Stokes on 08-25-2022 Albumin/Globulin [Mass ratio] 1.0 {ratio} 0.9-2.4 [facility] Serum or plasma calcium yoshi urement (mass/volume)Ordered By: Devon Stokes on 08-25-2022 Calcium [Mass/Vol] 9.4 mg/dL 8.5-10.1 [facility] Serum or plasma creatinine m easurement (mass/volume)Ordered By: Devon Stokes on 08-25-2022 Creatinine [Mass/Vol] 1.06 mg/dL 0.70-1.30 [facility] Comment on above: The validity of the calculated GFR & GFRAA in patients over 70 years has not been determined. Clinical correlation is essential. Serum or plasma urea nitroge n measurement (mass/volume)Ordered By: Devon Stokes on 08-25-2022 Urea nitrogen [Mass/Vol] 18 mg/dL 7-18 [facility] Thin prep Papanicolaou smear with manual screeningOrdered By: Devon Stokes on 08-25-2022 Thin prep Papanicolaou smear with manual screening 25 U/L 15-37 [facility] Thin prep Papanicolaou smear with manual screening 5 5-15 [facility] Basophil percentageon 2022 Cholesterol [Mass/Vol] 118 mg/dL <200 [facility] Comment on above: <200 mg/dL Desirable 200-240 mg/dL Borderline >240 mg/dL High Risk Triglyceride [Mass/Vol] 74 mg/dL <199 [facility] Comment on above: The drugs N-Acetylcy steine and Metamizole may falsely depress this assay.Serum Triglycerides Reference Interval Normal <150 mg/dL Borderline high 150 - 199 mg/dL High 200 - 499 mg/dL Very High > or = 500 mg/dL Serum or plasma cholesterol in HDL measurement (mass/volume)on 08-18-2022 Cholesterol in HDL [Mass/Vol] 58 mg/dL >40 [facility] Comment on above: The drugs N-Acetylcy steine and Metamizole may falsely depress this assay. Reference Range HDL <40 mg/dL Low HDL Cholesterol HDL >or= 60 mg/dL High HDL Cholesterol Serum or plasma cholesterol in VLDL measurement (mass/volume)on 08-18-2022 Cholesterol in VLDL [Mass/Vol] 15 mg/dL 5-40 [facility] Serum or plasma low density lipoprotein (LDL) cholesterol measurement (mass/volume)on 08-18-2022 Cholesterol in LDL [Mass/Vol] 45 mg/dL 0-130 [facility] EP NURSE PROCEDURE REPORTon 11-09-2021 Ordered by an unspecified provider. [facility] Basophil percentageon 2021 Chloride [Moles/Vol] 105 mmol/L 98-107 [facility] Work Phone: Glucose [Mass/Vol] 111 mg/dL 74-106 [facility] Work Phone: Comment on above: Fasting Glucose resu lt from 100 to 125 mg/dL suggests IMPAIRED HOMEOSTASIS per A.D.A. criteria. Potassium [Moles/Vol] 4.3 mmol/L 3.5-5.1 [facility] Work Phone: Sodium [Moles/Vol] 139 mmol/L 136-145 [facility] Work Phone: WBC (Bld) [#/Vol] 10.4 10*3/uL 4.4-11.0 [facility] Work Phone: Blood erythrocytes count (nu mber/volume)on 10-23-2021 RBC (Bld) [#/Vol] 4.97 10*6/uL 4.6-6.2 [facility] Work Phone: Blood hemoglobin measurement (mass/volume)on 10-23-2021 Hemoglobin (Bld) [Mass/Vol] 14.9 g/dL 13.0-16.5 [facility] Work Phone: Blood platelet mean volumeon 10-23-2021 Platelet mean volume (Bld) [Entitic vol] 10.3 fL 6.2-12.0 [facility] Work Phone: Determination of erythrocyte mean corpuscular volume (MCV)on 10-23-2021 MCV (RBC) [Entitic vol] 90.5 fL 80-94 [facility] Work Phone: Hematocrit Auto (Bld) [Volum e fraction]on 10-23-2021 Hematocrit (Bld) [Volume fraction] 45.0 % 40-54 [facility] Work Phone: Laboratory - Chemistry and C hemistry - challengeon 10-23-2021 CO2 [Moles/Vol] 29.0 mmol/L 21.0-32.0 [facility] Work Phone: Urea nitrogen/Creatinine [Mass ratio] 19.5 mg/mg 10-20 [facility] Work Phone: Laboratory - Hematology and Cell countson 10-23-2021 Erythrocyte distribution width (RBC) [Entitic vol] 43.8 fL 35.1-43.9 [facility] Work Phone: Erythrocyte distribution width (RBC) [Ratio] 13.1 % 11.6-14.6 [facility] Work Phone: MCH (RBC) [Entitic mass] 30.0 pg 27.0-32.0 [facility] Work Phone: MCHC Auto (RBC) [Mass/Vol]on 10-23-2021 MCHC (RBC) [Mass/Vol] 33.1 g/dL 32-36 [facility] Work [facility]: No Panel Informationon 10-23 Estimated GFR (MDRD) Amer 72 mL/min >60 [facility] Work Phone: Comment on above: GFR Calc Estimated GFR (MDRD) Non-Af Amer 59 mL/min >60 [facility] Work Phone: Comment on above: Non- GFR Calc Platelets bldon 10-23-2021 Platelets (Bld) [#/Vol] 220 10*3/uL 150-450 [facility] Work Phone: Serum or plasma calcium yoshi urement (mass/volume)on 10-23-2021 Calcium [Mass/Vol] 9.2 mg/dL 8.5-10.1 [facility] Work Phone: Serum or plasma creatinine m easurement (mass/volume)on 10-23-2021 Creatinine [Mass/Vol] 1.23 mg/dL 0.70-1.30 [facility] Work Phone: Comment on above: The validity of the calculated GFR & GFRAA in patients over 70 years has not been determined. Clinical correlation is essential. Serum or plasma urea nitroge n measurement (mass/volume)on 10-23-2021 Urea nitrogen [Mass/Vol] 24 mg/dL 7-18 [facility] Work Phone: Thin prep Papanicolaou smear with manual screeningon 10-23-2021 Thin prep Papanicolaou smear with manual screening 5 5-15 [facility] Work Phone: Vital Signs Date Time Vital Sign Value Performing Clinician Facility 10-23-2024 11:28-0400 Body height 167.[address] Devon Stokes DO Work Phone: [facility] 10-23-2024 11:28-0400 Body mass index (BMI) [Ratio] 22.8 kg/m2 Dr. Devon Stokes DO Work Phone: [facility] 10-23-2024 11:28-0400 Body temperature 97.4 [degF] Dr. Devon Stokes DO Work Phone: [facility] 10-23-2024 11:28-0400 Body weight 64.[address] Devon Stokes DO Work Phone: [facility] 10-23-2024 11:28-0400 Diastolic blood pressure 62 mm[Hg] Dr. Devon Stokes DO Work Phone: [facility] 10-23-2024 11:28-0400 Heart rate 69 /min Dr. Devon Stokes DO Work Phone: [facility] 10-23-2024 11:28-0400 Respiratory rate 14 /min Dr. Devon Stokes DO Work Phone: [facility] 10-23-2024 11:28-0400 SaO2% (BldA) [Mass fraction] 95 % Dr. Devon Stokes DO Work Phone: [facility] 10-23-2024 11:28-0400 Systolic blood pressure 108 mm[Hg] Dr. Devon Stokes DO Work Phone: [facility] 10-17-2024 09:52-0400 Body mass index (BMI) [Ratio] 22.89 kg/m2 Josephine Silvestre MD Work Phone: [facility] 10-17-2024 09:52-0400 Body weight 64.32 kg Josephine Silvestre MD Work Phone: [facility] 10-17-2024 09:52-0400 Diastolic blood pressure 74 mm[Hg] Josephine Silvestre MD Work Phone: [facility] 10-17-2024 09:52-0400 Heart rate 70 /min Josephine Silvestre MD Work Phone: [facility] 10-17-2024 09:52-0400 Systolic blood pressure 117 mm[Hg] Josephine Silvestre MD Work Phone: [facility] 10-11-2024 14:17-0400 Body mass index (BMI) [Ratio] 22.6 kg/m2 Juan Altman MD Work Phone: [facility] [employer] 10-11-2024 14:17-0400 Body temperature 97.11 [degF] Juan Altman MD Work Phone: [facility] [employer] 10-11-2024 14:17-0400 Body weight 63.5 kg Juan Altman MD Work Phone: [facility] [employer] 10-11-2024 14:17-0400 Diastolic blood pressure 67 mm[Hg] Juan Altman MD Work Phone: [facility] [employer] 10-11-2024 14:17-0400 Heart rate 67 /min Juan Altman MD Work Phone: [facility] [employer] 10-11-2024 14:17-0400 Systolic blood pressure 119 mm[Hg] Juan Altman MD Work Phone: [facility] [employer] 10-03-2024 13:18-0400 Body height 167.6 cm Conniemago Qiu IT PORTFOLIO MANAGER - ARCHITECTURAL DESIGNER Work Phone: [facility] [employer] 10-03-2024 13:18-0400 Body mass index (BMI) [Ratio] 22.53 kg/m2 Conniegurvinder Qiu IT PORTFOLIO MANAGER - ARCHITECTURAL DESIGNER Work Phone: [facility] [employer] 10-03-2024 13:18-0400 Body weight 63.32 kg Connie Katie IT PORTFOLIO MANAGER - ARCHITECTURAL DESIGNER Work Phone: [facility] [employer] [facility] 10-03-2024 13:18-0400 Diastolic blood pressure 66 mm[Hg] Connie Katie IT PORTFOLIO MANAGER - ARCHITECTURAL DESIGNER Work Phone: [facility] [employer] 10-03-2024 13:18-0400 Heart rate 65 /min Connie Katie IT PORTFOLIO MANAGER - ARCHITECTURAL DESIGNER Work Phone: [facility] [employer] [facility] 10-03-2024 13:18-0400 Systolic blood pressure 130 mm[Hg] Connie Katie IT PORTFOLIO MANAGER - ARCHITECTURAL DESIGNER Work Phone: [facility] 09-04-2024 07:34-0400 Body height 167.[address] Devon Stokes DO Work Phone: [facility] 09-04-2024 07:34-0400 Body mass index (BMI) [Ratio] 23.6 kg/m2 Dr. Devon Stokes DO Work Phone: [facility] 09-04-2024 07:34-0400 Body temperature 98.4 [degF] Dr. Devon Stokes DO Work Phone: [facility] 09-04-2024 07:34-0400 Body weight 66.[address] Devon Stokes DO Work Phone: [facility] 09-04-2024 07:34-0400 Diastolic blood pressure 60 mm[Hg] Dr. Devon Stokes DO Work Phone: [facility] 09-04-2024 07:34-0400 Heart rate 71 /min Dr. Devon Stokes DO Work Phone: [facility] 09-04-2024 07:34-0400 Respiratory rate 18 /min Dr. Devon Stokes DO Work Phone: [facility] 09-04-2024 07:34-0400 SaO2% (BldA) [Mass fraction] 71 % Dr. Devon Stokes DO Work Phone: [facility] 09-04-2024 07:34-0400 Systolic blood pressure 100 mm[Hg] Dr. Devon Stokes DO Work Phone: [facility] 08-22-2024 09:54-0400 Body mass index (BMI) [Ratio] 23.42 kg/m2 Vanessa Hoffman APRN - RIMA Work Phone: [facility] 08-22-2024 09:54-0400 Body temperature 97.7 [degF] Vanessa Hoffman APRN - ARCHITECTURAL DESIGNER Work Phone: [facility] 08-22-2024 09:54-0400 Body weight 65.82 kg Vanessa Hoffman APRN - RIMA Work Phone: [facility] 08-22-2024 09:54-0400 Diastolic blood pressure 64 mm[Hg] Vanessa Hoffman APRN - RIMA Work Phone: [facility] 08-22-2024 09:54-0400 Heart rate 67 /min Vanessa Hoffman APRN - RIMA Work Phone: [facility] 08-22-2024 09:54-0400 Respiratory rate 14 /min Vanessa Hoffman APRN - ARCHITECTURAL DESIGNER Work Phone: [facility] [employer] [facility] 08-22-2024 09:54-0400 SaO2% (BldA) [Mass fraction] 97 % Vanessa Hoffman IT PORTFOLIO MANAGER - ARCHITECTURAL DESIGNER Work Phone: [facility] [employer] [facility] 08-22-2024 09:54-0400 Systolic blood pressure 125 mm[Hg] Vanessa Hoffman IT PORTFOLIO MANAGER - ARCHITECTURAL DESIGNER Work Phone: [facility] 08-08-2024 14:36-0400 Body height 167.6 cm Chantel O'Shell IT PORTFOLIO MANAGER - ARCHITECTURAL DESIGNER Work Phone: [facility] 08-08-2024 14:36-0400 Body mass index (BMI) [Ratio] 23.4 kg/m2 Chantel O'Shell IT PORTFOLIO MANAGER - ARCHITECTURAL DESIGNER Work Phone: [facility] 08-08-2024 14:36-0400 Body weight 65.77 kg Chantel O'Shell IT PORTFOLIO MANAGER - ARCHITECTURAL DESIGNER Work Phone: [facility] 08-08-2024 14:36-0400 Diastolic blood pressure 62 mm[Hg] Chantel O'Shell IT PORTFOLIO MANAGER - ARCHITECTURAL DESIGNER Work Phone: [facility] 08-08-2024 14:36-0400 Heart rate 65 /min Chantel O'Shell IT PORTFOLIO MANAGER - ARCHITECTURAL DESIGNER Work Phone: [facility] 08-08-2024 14:36-0400 SaO2% (BldA) [Mass fraction] 95 % Chantel O'Shell IT PORTFOLIO MANAGER - ARCHITECTURAL DESIGNER Work Phone: [facility] 08-08-2024 14:36-0400 Systolic blood pressure 100 mm[Hg] Chantel O'Shell IT PORTFOLIO MANAGER - ARCHITECTURAL DESIGNER Work Phone: [facility] 08-07-2024 09:08-0400 Body height 167.[address] Devon Stokes DO Work Phone: [facility] 08-07-2024 09:08-0400 Body mass index (BMI) [Ratio] 23.1 kg/m2 Dr. Devon Stokes DO Work Phone: [facility] 08-07-2024 09:08-0400 Body temperature 98.6 [degF] Dr. Devon Stokes DO Work Phone: [facility] 08-07-2024 09:08-0400 Body weight 64.[address] Devon Stokes DO Work Phone: [facility] 08-07-2024 09:08-0400 Diastolic blood pressure 70 mm[Hg] Dr. Devon Stokes DO Work Phone: [facility] 08-07-2024 09:08-0400 Heart rate 62 /min Dr. Devon Stokes DO Work Phone: [facility] 08-07-2024 09:08-0400 Respiratory rate 16 /min Dr. Devon Stokes DO Work Phone: [facility] 08-07-2024 09:08-0400 SaO2% (BldA) [Mass fraction] 98 % Dr. Devon Stokes DO Work Phone: [facility] 08-07-2024 09:08-0400 Systolic blood pressure 108 mm[Hg] Dr. Devon Stokes DO Work Phone: [facility] 08-01-2024 12:00-0400 Diastolic blood pressure 99 mm[Hg] Heather Morton DO Work Phone: [facility] 08-01-2024 12:00-0400 Heart rate 72 /min Heather Morton DO Work Phone: [facility] 08-01-2024 12:00-0400 Respiratory rate 13 /min Heather Morton DO Work Phone: [facility] 08-01-2024 12:00-0400 SaO2% (BldA) [Mass fraction] 99 % Heather Morton DO Work Phone: [facility] 08-01-2024 12:00-0400 Systolic blood pressure 119 mm[Hg] Heather Morton DO Work Phone: [facility] 08-01-2024 04:00-0400 Body temperature 97.3 [degF] Heather Morton DO Work Phone: [facility] 07-31-2024 05:46-0400 Body mass index (BMI) [Ratio] 23.59 kg/m2 Heather Morton DO Work Phone: [facility] 07-31-2024 05:46-0400 Body weight 66.3 kg Heather Morton DO Work Phone: [facility] 07-30-2024 10:08-0400 Body height 167.6 cm Heather Morton DO Work Phone: [facility] 07-29-2024 14:30-0400 Diastolic blood pressure 65 mm[Hg] Dr. Devon Stokes DO Work Phone: [facility] 07-29-2024 14:30-0400 Heart rate 68 /min Dr. Devon Stokes DO Work Phone: [facility] 07-29-2024 14:30-0400 Respiratory rate 19 /min Dr. Devon Stokes DO Work Phone: [facility] 07-29-2024 14:30-0400 SaO2% (BldA) [Mass fraction] 97 % Dr. Devon Stokes DO Work Phone: [facility] 07-29-2024 14:30-0400 Systolic blood pressure 130 mm[Hg] Dr. Devon Stokes DO Work Phone: [facility] 07-29-2024 14:05-0400 Body temperature 97.9 [degF] Dr. Devon Stokes DO Work Phone: [facility] 07-29-2024 12:46-0400 Body height 167.[address] Devon Stokes DO Work Phone: [facility] 07-29-2024 12:46-0400 Body mass index (BMI) [Ratio] 23.8 kg/m2 Dr. Devon Stokes DO Work Phone: [facility] 07-29-2024 12:46-0400 Body weight 66.[address] Devon Stokes DO Work Phone: [facility] 06-04-2024 14:54-0400 Body height 167.6 cm Zhou Calle MD Work Phone: [facility] [facility] 06-04-2024 14:54-0400 Body mass index (BMI) [Ratio] 24.28 kg/m2 Zhou Calle MD Work Phone: [facility] [facility] 06-04-2024 14:54-0400 Body weight 68.22 kg Zhou Calle MD Work Phone: [facility] [facility] 06-04-2024 14:54-0400 Diastolic blood pressure 58 mm[Hg] Zhou Calle MD Work Phone: [facility] [facility] 06-04-2024 14:54-0400 Heart rate 60 /min Zhou Calle MD Work Phone: [facility] [facility] 06-04-2024 14:54-0400 SaO2% (BldA) [Mass fraction] 97 % Zhou Calle MD Work Phone: [facility] [facility] 06-04-2024 14:54-0400 Systolic blood pressure 114 mm[Hg] Zhou Calle MD Work Phone: [facility] [facility] 06-07-2023 14:14-0400 Body height 167.6 cm Zhou Calle MD Work Phone: [facility] [facility] 06-07-2023 14:14-0400 Body mass index (BMI) [Ratio] 23.73 kg/m2 Zhou Calle MD Work Phone: [facility] [facility] 06-07-2023 14:14-0400 Body weight 66.68 kg Zhou Calle MD Work Phone: [facility] [facility] 06-07-2023 14:14-0400 Diastolic blood pressure 58 mm[Hg] Zhou Calle MD Work Phone: [facility] [facility] 06-07-2023 14:14-0400 Heart rate 63 /min Zhou Calle MD Work Phone: [facility] [facility] 06-07-2023 14:14-0400 SaO2% (BldA) [Mass fraction] 97 % Zhou Calle MD Work Phone: [facility] 06-07-2023 14:14-0400 Systolic blood pressure 120 mm[Hg] Zhou Calle MD Work Phone: [facility] 08-25-2022 09:33-0400 Body height 167.[address] Devon Stokes Work Phone: [facility] 08-25-2022 09:33-0400 Body mass index (BMI) [Ratio] 22.7 kg/m2 Dr. Devon Stokes Work Phone: [facility] 08-25-2022 09:33-0400 Body temperature 96.5 [degF] Dr. Devon Stokes Work Phone: [facility] 08-25-2022 09:33-0400 Body weight 63.[address] Devon Stokes Work Phone: [facility] 08-25-2022 09:33-0400 Diastolic blood pressure 60 mm[Hg] Dr. Devon Stokes Work Phone: [facility] 08-25-2022 09:33-0400 Heart rate 54 /min Dr. Devon Stokes Work Phone: [facility] 08-25-2022 09:33-0400 Respiratory rate 16 /min Dr. Devon Stokes Work Phone: [facility] 08-25-2022 09:33-0400 SaO2% (BldA) [Mass fraction] 99 % Dr. Devon Stokes Work Phone: [facility] 08-25-2022 09:33-0400 Systolic blood pressure 102 mm[Hg] Dr. Devon Stokes Work Phone: [facility] 11-09-2021 10:45-0400 Diastolic blood pressure 61 mm[Hg] Zhou Calle MD Work Phone: [facility] 11-09-2021 10:45-0400 Heart rate 50 /min Zhou Calle MD Work Phone: [facility] 11-09-2021 10:45-0400 Respiratory rate 16 /min Zhou Calle MD Work Phone: [facility] 11-09-2021 10:45-0400 SaO2% (BldA) [Mass fraction] 99 % Zhou Calle MD Work Phone: [facility] 11-09-2021 10:45-0400 Systolic blood pressure 109 mm[Hg] Zhou Calle MD Work Phone: [facility] 11-09-2021 10:15-0400 Body temperature 97.2 [degF] Zhou Calle MD Work Phone: [facility] Encounters Encounter Date Encounter Type Care Provider Facility Start: 10-23-2024 End: 10-23-[address] Devon Stokes DO Work Phone: -[facility] Start: 10-23-2024 End: 10-23-[address] Devon Polanco DO -[facility] Work Phone: Start: 10-17-2024 End: 10-17-2024 ambulatory [facility] Start: 10-17-2024 End: 10-17-2024 Office outpatient visit 40 minutes Josephine Silvestre MD Work Phone: [facility] [place] Comment on above: Focal epilepsy (CMS/ HCC) (HCC) (Primary Dx); Subarachnoid hemorrhage (HCC); Seizures (HCC); Long-term use of high-risk medication Start: 10-17-2024 End: 10-17-2024 ambulatory [facility] Start: 10-11-2024 End: 10-11-2024 Office outpatient visit 40 minutes Juan Altman MD Work Phone: [facility] Comment on above: Subarachnoid hemorrh age (HCC) (Primary Dx); Seizures (HCC) Start: 10-11-2024 End: 10-11-2024 ambulatory JUAN ALTMAN [facility] Start: 10-03-2024 End: 10-03-2024 ambulatory CONNIE QIU [facility] Start: 10-03-2024 End: 10-03-2024 Office outpatient visit 25 minutes Connie Qiu IT PORTFOLIO MANAGER - ARCHITECTURAL DESIGNER Work Phone: [facility] Comment on above: SAH (subarachnoid he morrhage) ([facility]) (Primary Dx); Numbness and tingling in left hand Start: 09-24-2024 End: 09-24-2024 Refill Zhou Calle MD Work Phone: [facility] [place] Comment on above: LV dysfunction Start: 09-04-2024 End: 09-04-2024 Patient encounter procedure Jennifer Casas FERTILIZING MACHINE OPERATOR-C -[facility] Work Phone: Start: 09-04-2024 End: 09-04-[address] Devon Stokes DO Work Phone: -[facility] Start: 09-03-2024 End: 09-04-2024 ambulatory Jennifer Casas Facility:[facility] Start: 08-22-2024 End: 08-22-2024 Office outpatient visit 25 minutes Vanessa J Erickson IT PORTFOLIO MANAGER - ARCHITECTURAL DESIGNER [facility] Comment on above: Palliative care enco unter (Primary Dx); Intracranial hemorrhage (HCC); Automatic implantable cardioverter-defibrillator in situ; HFrEF (heart failure with reduced ejection fraction) ([facility]) Start: 08-22-2024 End: 08-22-[address] [facility] Start: 08-20-2024 End: 08-20-2024 Discharged Recurring Jennifer Casas FERTILIZING MACHINE OPERATOR-C -Physical Therapy Work Phone: Start: 08-20-2024 End: 08-20-[address] Devon Stokes DO Work Phone: -Physical Therapy Start: 08-15-2024 Non-patient / Non-visit Dr. Perfecto ROCHA -[facility] Work Phone: Start: 08-15-2024 ambulatory Devon Stokes Facilit y:[facility] Start: 08-08-2024 End: 08-08-2024 Office outpatient visit 25 minutes Chantel Huntley IT PORTFOLIO MANAGER - ARCHITECTURAL DESIGNER Work Phone: [facility] [place] Comment on above: Intracranial hemorrh age (HCC) (Primary Dx); ICD (implantable cardioverter-defibrillator), single, in situ; Coronary artery disease involving [place] coronary artery of [place] heart without angina pectoris Start: 08-08-2024 End: 08-08-2024 ambulatory CHANTEL HUNT[facility] Start: 08-07-2024 End: 08-07-2024 Telephone encounter Gabi Batista RN [facility] Trauma Neuro Progressive Care Unit PCU 3W Start: 08-07-2024 End: 08-07-2024 Patient encounter procedure Jennifer KATEC -[facility] Work Phone: Start: 08-07-2024 End: 08-07-[address] Devon Stokes DO Work Phone: [facility] Work Phone: Start: 08-03-2024 End: 08-03-2024 Telephone encounter Zhou Calle MD Work Phone: [facility] [employer] Start: 07-31-2024 End: 07-31-2024 ambulatory RADU Filemon [facility] Start: 07-29-2024 End: 08-01-2024 Evaluation and management of inpatient Heather Morton DO Work Phone: [facility] Surgical Trauma Neuro Intensive Care Unit [facility] ICU T2 Comment on above: Intracranial hemorrh age (HCC) (Primary Dx); LV dysfunction Start: 07-29-2024 End: 07-29-2024 Emergency department patient visit Dr. Devon Stokes DO Work Phone: -Emergency Department Work Phone: Start: 06-08-2024 End: 06-08-2024 Enrico Haque PA-C Work Phone: [facility] [place] Comment on above: LV dysfunction Start: 06-04-2024 End: 06-04-2024 Office outpatient visit 25 minutes Zhou Calle MD Work Phone: [facility] [employer] [facility] Comment on above: LV dysfunction; Hyperlipidemia, unspecified hyperlipidemia type Start: 06-04-2024 End: 06-04-2024 ambulatory DEVON STOKSE [facility] Start: 04-09-2024 End: 04-09-2024 ambulatory DEVON [facility] Start: 03-07-2024 End: 03-07-2024 ambulatory DEVON [facility] Start: 02-23-2024 End: 02-23-2024 Refill [employer] Work Phone: [facility] [employer] [place] Comment on above: LV dysfunction; Hyperlipidemia, unspecified hyperlipidemia type Start: 02-23-2024 End: 02-23-2024 Refill [employer] Work Phone: [facility] [employer] [place] Comment on above: LV dysfunction; Hyperlipidemia, unspecified hyperlipidemia type Start: 02-01-2024 End: 02-01-2024 ambulatory Agustin Proano Facility:[facility] Start: 01-19-2024 End: 01-20-2024 Telephone encounter Zhou Calle MD Work Phone: [facility] [employer] [facility] Comment on above: Other Start: 01-04-2024 End: 01-04-2024 [facility] Start: 12-20-2023 End: 12-20-2023 ambulatory Daisy Ribeiro Facility:[facility] Start: 12-06-2023 End: 12-06-2023 ambulatory DEVON [facility] Start: 11-28-2023 End: 11-28-2023 Emergency department patient visit Devon Stokes Facility:[facility] Start: 09-21-[address] Devon Stokes DO Work Phone: [facility] Start: 09-21-2023 End: 09-21-2023 ambulatory Devon Stokes [facility] Start: 09-21-2023 End: 09-21-2023 ambulatory Devon Stokes Facility:[facility] Start: 09-05-2023 End: 09-12-2023 Telephone encounter Zhou Calle MD Work Phone: [facility] Start: 06-07-2023 End: 06-07-2023 Office outpatient visit 25 minutes Zhou Calle MD Work Phone: [facility] Start: 05-30-2023 Telephone encounter Zhou Calle MD Work Phone: [facility] Comment on above: Orders Start: 02-11-2023 Refill Zhou sosa MD Work Phone: [facility] Comment on above: LV dysfunction; Hyperlipidemia, unspecified hyperlipidemia type Start: 08-25-2022 End: 08-25-[address] Devon Stokes Work Phone: [facility] Work Phone: Start: 08-25-2022 End: 08-25-[address] Devon Stokes Work Phone: [facility] Start: 08-25-2022 End: 08-25-[address] Devon Stokes Work Phone: [facility] Work Phone: Start: 08-18-2022 End: 08-18-2022 ambulatory [facility] Work Phone: Start: 08-18-2022 End: 08-18-2022 Patient encounter procedure [facility] Work Phone: Start: 08-03-2022 Refill Chantel Romero'Loretta Hollins PRN - ARCHITECTURAL DESIGNER Work Phone: [facility] Comment on above: Hyperlipidemia, unsp ecified hyperlipidemia type (Primary Dx); LV dysfunction Start: 11-09-2021 End: 11-09-2021 ambulatory Zhou Calle [facility] Start: 11-09-2021 End: 11-09-2021 Subsequent hospital visit by physician Zhou Calle MD Work Phone: [facility] Certified Genetic Counselor Comment on above: Arrived Start: 10-23-2021 End: 10-23-2021 ambulatory [facility] Work Phone: Start: 10-23-2021 End: 10-23-2021 Patient encounter procedure [facility] Procedures Date Procedure Procedure Detail Performing Clinician Start: 10-17-2024 Comprehensive metabolic panel Josephine Anderson MD Work Phone: Start: 08-08-2024 Ecg routine ecg w/least 12 lds trcg only w/o i&r Zhou Calle MD Work Phone: Start: 08-01-2024 RFA Carotid artery and Cerebral artery - left Views W contrast IA Monika Farris IT PORTFOLIO MANAGER - ARCHITECTURAL DESIGNER Work Phone: Start: 08-01-2024 Basic metabolic panel calcium total Marion A Rosa IT PORTFOLIO MANAGER - ARCHITECTURAL DESIGNER Work Phone: Start: 07-31-2024 Electroencephalogram w/rec awake&asleep Radu Arrington IT PORTFOLIO MANAGER - ARCHITECTURAL DESIGNER Work Phone: Start: 07-31-2024 Blood count complete auto&auto difrntl wbc Marion A Rosa IT PORTFOLIO MANAGER - ARCHITECTURAL DESIGNER Work Phone: Start: 07-31-2024 Basic metabolic panel calcium total Marion A Rosa IT PORTFOLIO MANAGER - ARCHITECTURAL DESIGNER Work Phone: Start: 07-30-2024 End: 07-30-2024 Mri brain brain stem w/o w/contrast material Marion A Rosa IT PORTFOLIO MANAGER - ARCHITECTURAL DESIGNER Work Phone: Start: 07-30-2024 TTE w or wo fol wcon,Doppler Marion Gurvinder marrero IT PORTFOLIO MANAGER - ARCHITECTURAL DESIGNER Work Phone: Start: 07-30-2024 Ct head/brain w/o contrast material Marion A Rosa IT PORTFOLIO MANAGER - ARCHITECTURAL DESIGNER Work Phone: Start: 07-30-2024 Basic metabolic panel calcium total Marion A Rosa IT PORTFOLIO MANAGER - ARCHITECTURAL DESIGNER Work Phone: Start: 07-29-2024 Assay of troponin quantitative Marion A Rosa IT PORTFOLIO MANAGER - ARCHITECTURAL DESIGNER Work Phone: Start: 07-29-2024 Radiologic exam chest single view Marion Lee IT PORTFOLIO MANAGER - ARCHITECTURAL DESIGNER Work Phone: Start: 07-29-2024 Radiologic exam abdomen 1 view Marion Lee IT PORTFOLIO MANAGER - ARCHITECTURAL DESIGNER Work Phone: Start: 07-29-2024 UNCONFIRMED DRUG SCREEN Marion Lee IT PORTFOLIO MANAGER - ARCHITECTURAL DESIGNER Work Phone: Start: 07-29-2024 Urnls dip stick/tablet rgnt auto w/o microscopy Marionpanchito Lee IT PORTFOLIO MANAGER - ARCHITECTURAL DESIGNER Work Phone: Start: 07-29-2024 Hemoglobin glycosylated a1c Marion Hollins Mo lnar IT PORTFOLIO MANAGER - ARCHITECTURAL DESIGNER Work Phone: Start: 07-29-2024 Ecg routine ecg w/least 12 lds trcg only w/o i&r Marion Lee IT PORTFOLIO MANAGER - ARCHITECTURAL DESIGNER Work Phone: Start: 07-29-2024 OXYGEN THERAPY Marion Lee APR N - ARCHITECTURAL DESIGNER Work Phone: Start: 07-29-2024 Ct angiography head w/contrast/noncontrast Marion Lee APRN - ARCHITECTURAL DESIGNER Work Phone: Start: 07-29-2024 CT angiography of head and neck Dr. Kenyon Stokes DO Work Phone: Start: 07-29-2024 CT of head without contrast Dr. Devon Stokes DO Work Phone: Start: 07-29-[address] Chris Stokes DO Work Phone: Start: 08-18-2022 Lipid 1996 panel - Serum or Plasma Zhou Calle MD Work Phone: Start: 11-09-2021 Ecg routine ecg w/least 12 lds w/i&r Daisy Mg IT PORTFOLIO MANAGER - ARCHITECTURAL DESIGNER Work Phone: Start: 11-09-2021 EP NURSE PROCEDURE REPORT Physician Tod griffin Start: 11-09-2021 Ecg routine ecg w/least 12 lds w/i&r Chantel Romero'Loretta IT PORTFOLIO MANAGER - ARCHITECTURAL DESIGNER Work Phone: Start: 10-23-2021 Plain chest X-ray Plan of Treatment Date Care Activity Detail Author Start: 08-19-2027 Lipid panel Lipid Panel [facility] Start: 10-17-2025 Creatinine measurement Creatinine Level [facility] Start: 10-17-2025 Potassium measurement Potassium Level [facility] Start: 08-01-2025 Creatinine measurement Creatinine Level [facility] Start: 08-01-2025 Potassium measurement Potassium Level [facility] Start: 07-30-2025 Echocardiography Echocardiogram [facility] Start: 02-04-2025 End: 02-04-2025 Patient encounter procedure 02/04/2025 8:00 AM EST Office Visit [facility] [place] [address] [place] [id number] Zhou Calle MD [address] [place] [address] [facility] [place] Start: 12-20-2024 End: 12-20-2024 Patient encounter procedure 12/20/2024 11:00 AM EST Office Visit [facility] [place] [address] [place] [phone] Zhou Calle MD [address] [place] [address] [facility] [place] Start: 12-19-2024 End: 12-19-2024 Telemedicine consultation with patient 12/19/2024 10:00 AM EST Telemedicine [facility] [place] [address] [place] [address] Josephine Darden MD [address] [place], [place] [id number] [facility] [place] Start: 12-03-2024 End: 12-03-2024 Professional / ancillary services management 12/03/2024 3:00 PM EDT Ancillary Procedure [facility] [place] [address] [place] [phone] [facility] Start: 11-28-2024 End: 11-28-2024 Patient encounter procedure 11/28/2024 7:30 AM EDT Office Visit [facility] [address] [place] [phone] Connie Qiu APRN - CNP [address] [place] [address] [facility] Start: 10-23-2024 Comprehensive metabolic 2000 panel - Serum or Plasma [facility] Start: 10-23-2024 Parathyroid hormone measurement [facility] Start: 10-17-2024 End: 10-17-2025 LEVETIRACETAM LEVEL [facility] Work Phone: Comment on above: Expected: 10/17/2024 (Approximate), Expi res: 10/17/2025 Start: 10-17-2024 End: 10-17-2024 Patient encounter procedure 10/17/2024 10:00 AM EDT Office Visit [facility] [address] [place] [phone] Josephine Darden MD [address] [place] [address] [facility] Start: 10-15-2024 COVID-19 Vaccine ( season) COVID-19 Vaccine ( season) [facility] Start: 10-15-2024 Influenza vaccination [facility] Start: 10-12-2024 End: 10-12-2025 MR Brain WO and W contrast IV MR brain w and wo contrast Imaging Routine Subarachnoid hemorrhage (HCC) Seizures (HCC) Expected: 10/12/2024 (Approximate), Expires: 10/12/2025 [facility] [facility] Work Phone: Comment on above: Expected: 10/12/2024 (Approximate), Expi res: 10/12/2025 Start: 10-11-2024 End: 10-11-2024 Patient encounter procedure [facility] Start: 10-03-2024 End: 10-03-2024 Patient encounter procedure 10/03/2024 1:00 PM EDT Office Visit [facility] [address] [place] [address] Connie Qiu, IT PORTFOLIO MANAGER - ARCHITECTURAL DESIGNER [address] [place] [address] [facility] Start: 09-04-2024 Complete blood count [facility] Start: 09-04-2024 Comprehensive metabolic 2000 panel - Serum or Plasma [facility] Start: 09-04-2024 Natriuretic peptide.B prohormone N-Terminal [Mass/volume] in Serum or Plasma [facility] Start: 09-03-2024 End: 09-03-2024 Professional / ancillary services management 09/03/2024 10:30 AM EDT Ancillary Procedure [facility] [place] [address] [place] [phone] [facility] Start: 08-22-2024 End: 08-22-2024 Patient encounter procedure 08/22/2024 9:45 AM EDT Office [facility] [address] [place] [phone] Vanessa Hoffman, IT PORTFOLIO MANAGER - ARCHITECTURAL DESIGNER [address] [place] [address] [facility] Start: 08-08-2024 End: 08-08-2024 Patient encounter procedure 08/08/2024 3:00 PM EDT Office Visit [facility] [place] [address] [place] [phone] Chantel Huntley, IT PORTFOLIO MANAGER - ARCHITECTURAL DESIGNER [address] [facility] [place] [address] [facility] [place] Start: 07-29-2024 [facility] Start: 07-29-2024 Oxygen therapy [facility] Start: 07-29-2024 [facility] Start: 06-04-2024 End: 06-04-2024 Patient encounter procedure [facility] Start: 06-04-2024 End: 06-04-2024 Professional / ancillary services management 06/04/2024 2:30 PM EDT Ancillary Procedure [facility] [place] [address] [place] [phone] [facility] [place] Start: 03-07-2024 End: 03-07-2024 Professional / ancillary services management 03/07/2024 4:30 PM EST Ancillary Procedure [facility] [place] [address] [place] [phone] [facility] [place] Start: 02-15-2024 Medicare Advantage Annual Wellness Visit Medicare [facility] Annual Wellness Visit [facility] Start: 12-06-2023 End: 12-06-2023 Professional / ancillary services management 12/06/2023 1:00 PM EDT Ancillary Procedure [facility] [address] [place] [phone] [facility] Start: 2023 COVID-19 Vaccine ( season) COVID-19 Vaccine () [facility] Start: 2023 Influenza vaccination [facility] Start: 09-07-2023 End: 09-07-2023 Professional / ancillary services management 09/07/2023 9:00 AM EDT Ancillary Procedure [facility] [address] [place] [address] [facility] Start: 08-26-2023 Creatinine measurement Creatinine Level [facility] Start: 08-26-2023 Potassium measurement Potassium Level [facility] Start: 08-04-2023 Creatinine measurement Creatinine Level [facility] Start: 08-04-2023 Potassium measurement Potassium Level [facility] Start: 06-14-2023 End: 06-14-2023 Patient encounter procedure 06/14/2023 1:00 PM EDT Office Visit [facility] [address] [place] [address] Zhou Calle MD [address] [id number] [facility] Start: 06-07-2023 End: 06-07-2023 Patient encounter procedure [facility] Start: 06-07-2023 End: 06-07-2023 Professional / ancillary services management [facility] Start: 04-28-2023 End: 04-28-2023 Professional / ancillary services management 04/28/2023 7:30 AM EDT Ancillary Procedure [facility] [address] [place] [address] [facility] Start: 02-14-2023 Medicare Advantage Annual Wellness Visit Medicare Advantage Annual Wellness Visit [facility] Start: 10-26-2022 Creatinine measurement Creatinine Level [facility] Start: 10-26-2022 Potassium measurement Potassium Level [facility] Start: 10-15-2022 COVID-19 Vaccine ( season) COVID-19 Vaccine () [facility] Start: 10-15-2022 Influenza vaccination [facility] Start: 10-04-2022 End: 10-04-2022 Professional / ancillary services management 10/04/2022 10:30 AM EDT Ancillary Procedure [facility] [address] [place] [address] [facility] Start: 08-25-2022 Patient referral [facility] Work Phone: Start: 08-03-2022 End: 08-04-2023 Lipid 1996 panel - Serum or Plasma Lipid panel Lab Routine Hyperlipidemia, unspecified hyperlipidemia type Expected: 08/03/2022 (Approximate), Expires: 08/04/2023 [facility] Work Phone: Comment on above: Expected: 08/03/2022 (Approximate), Expi res: 08/04/2023 Start: 02-16-2022 End: 02-16-2022 Patient encounter procedure 02/16/2022 Office Visit Cardiology Zhou Calle MD [address] [place] [address] [facility] Start: 12-18-2021 End: 12-18-2021 Patient encounter procedure 12/18/2021 Office Visit Cardiology Zhou Calle MD [address] [place] [address] [facility] Start: 11-26-2021 End: 11-26-2021 Nursing evaluation of patient and report 11/26/2021 Nurse Only Cardiology Deena Lima, [facility] Start: 09-14-2021 Influenza vaccination Flu vaccine (#1) [facility] Start: 06-01-2019 Lipid panel Lipids [facility] Start: 08-06-2018 Annual Wellness Visit (AWV) Annual Wellness Visit (AWV) [facility] Start: 10-15-2010 RSV Immunization for Adults (1 - 1-dose 75+ series) RSV Immunization for Adults (1 - 1-dose 75+ series) [facility] Start: 10-15-2000 Pneumococcal 65+ years Vaccine (1 - PCV) Pneumococcal 65+ years Vaccine (1 - PCV) [facility] Start: 1995 RSV Immunization aged 60 or older (1 - 1-dose 60+ series) RSV Immunization aged 60 or older (1 - 1-dose 60+ series) [facility] Start: 10-15-1985 Shingles vaccine (1 of 2) Shingles vaccine (1 of 2) [facility] Start: 10-15-1985 Zoster Vaccines (1 of 2) Zoster Vaccines (1 of 2) [facility] Start: 10-15-1954 DTaP/Tdap/Td vaccine (1 - Tdap) DTaP/Tdap/Td vaccine (1 - Tdap) [facility] Start: 10-15-1954 DTaP/Tdap/Td Vaccines (1 - Tdap) DTaP/Tdap/Td Vaccines (1 - Tdap) [facility] Start: 10-15-1954 Pneumococcal Vaccine: 50+ Years (1 of 2 - PCV) Pneumococcal Vaccine: 50+ Years (1 of 2 - PCV) [facility] Start: 1947 Depression Screen Depression Screen [facility] Start: 1947 Depression Screening Depression Screening [facility] Start: 10-15-1941 Pneumococcal Vaccine: 65+ Years (1 - PCV) Pneumococcal Vaccine: 65+ Years (1 - PCV) [facility] Start: 10-15-1941 Pneumococcal Vaccine: 65+ Years (1 of 2 - PCV) Pneumococcal Vaccine: 65+ Years (1 of 2 - PCV) [facility] Start: 04-14-1936 COVID-19 Vaccine (#1) COVID-19 Vaccine (#1) [facility] Start: 1935 Echocardiography Echocardiogram [facility] Start: 1935 Lipid panel Lipid Panel [facility] Start: 1935 Medicare Advantage Annual Wellness Visit (AWV) Medicare Advantage Annual Wellness Visit (AWV) [facility] Alanine aminotransfe rase [Enzymatic activity/volume] in Serum or Plasma [facility] Alanine aminotransfe rase [Enzymatic activity/volume] in Serum or Plasma [facility] Albumin [Mass/volume ] in Serum or Plasma [facility] Albumin [Mass/volume ] in Serum or Plasma [facility] Alkaline phosphatase [Enzymatic activity/volume] in Serum or Plasma [facility] Alkaline phosphatase [Enzymatic activity/volume] in Serum or Plasma [facility] Anion gap in Serum o r Plasma [facility] Anion gap in Serum o r Plasma [facility] Bilirubin, total measurement [facility] Bilirubin, total measurement [facility] BUN/Creatinine ratio [facility] BUN/Creatinine ratio [facility] Calcium [Mass/volume ] in Serum or Plasma [facility] Calcium [Mass/volume ] in Serum or Plasma [facility] Carbon dioxide, tota l [Moles/volume] in Central venous blood [facility] Carbon dioxide, tota l [Moles/volume] in Central venous blood [facility] End: 11-09-2021 Catheterization and angiography procedure details panel Diagnostic Cardiac Certified Genetic Counselor Procedure Cardiac Cath Routine One Time for 1 Occurrences starting 11/09/2021 until 11/09/2021 [facility] Work Phone: Comment on above: One Time for 1 Occurrences starting 10/16 until 11/09/2021 Creatinine [Mass/vol ume] in Serum or Plasma [facility] Creatinine [Mass/vol ume] in Serum or Plasma [facility] ECG 12 lead - CLINIC PERFORMED ECG 12 lead - CLINIC PERFORMED CV ECG Routine Intracranial hemorrhage (HCC) 08/08/2024 2:38 PM EDT [facility] Work Phone: Electrocardiogram, 12-lead [email or web address] Work Phone: End: 11-09-2021 ELECTROPHYSIOLOGY DEVICE ELECTROPHYSIOLOGY DEVICE Echocardiography Routine One Time for 1 Occurrences starting 11/09/2021 until 11/09/2021 [email or web address] Work Phone: Comment on above: One Time for 1 Occurrences starting 10/16 until 11/09/2021 Erythrocyte mean corpuscular volume determination [facility] Glucose [Mass/volume ] in Serum or Plasma [facility] Glucose [Mass/volume ] in Serum or Plasma [facility] Hematocrit [Volume Fraction] of Blood [facility] Hemoglobin [Mass/vol ume] in Blood [facility] Leukocytes [#/volume ] in Blood [facility] Mean corpuscular hemoglobin concentration determination [facility] Mean corpuscular hemoglobin determination [facility] Measurement of renal function [facility] Measurement of renal function [facility] Oxygen therapy [[facility] Data Set] Initiate Oxygen Therapy Protocol Respiratory Care Routine As Needed until discontinued starting 11/09/2021 [email or web address] Work Phone: Comment on above: As Needed until discontinued starting Patient referral [facility] Work Phone: Platelets [#/volume] in Blood [facility] Potassium measurement [facility] Potassium measurement [facility] Red blood cell count [facility] Red cell distributio n width determination [facility] Serum chloride measurement [facility] Serum chloride measurement [facility] Sodium measurement [facility] Sodium measurement [facility] Total protein measurement [facility] Total protein measurement [facility] Troponin T.cardiac [Mass/volume] in Serum or Plasma by High sensitivity method [facility] Urea nitrogen [Mass/volume] in Serum or Plasma [facility] Urea nitrogen [Mass/volume] in Serum or Plasma [facility] P[place] Date Payer Category Payer Self-pay [id number] 2022 Medicare [employer] [id number] 2022-Present [address] [place] [address] Medicare HMO [id number] 2022 Medicare HMO [employer] [id number] 2015 Medicare [id number] 1935 Unknown [id number] Unknown Unknown [id number] Unknown [id number] Unknown [id number] Unknown [id number] Unknown [id number] [id number] Unknown [id number] [id number] Unknown [id number] [id number] Unknown [id number] [id number] Unknown [id number] [id number] Unknown [id number] [id number] Unknown [id number] Unknown [id number] Social History Date Type Detail Facility Start: 09-11-2015 End: 08-25-2022 Tobacco smoking status NHIS Unknown if ever smoked [facility] Start: 1935 Sex Assigned At Male [facility] Work Phone: Start: 06-21-2016 End: 07-29-2024 Tobacco smoking status NHIS Never smoked tobacco [facility] Start: 06-21-2016 Tobacco use and exposure Smokeless tobacco non-user [employer] Work Phone: Start: 12-15-2020 End: 10-17-2024 Alcohol intake Current drinker of alcohol (finding) [employer] Work Phone: Start: 06-21-2016 History SDOH Alcohol Comment Maybe 2x a month [email or web address] Work Phone: Start: 1935 Sex Assigned At Not on file S [employer] Work Phone: Start: 10-30-2021 End: 11-09-2021 Exposure to SARS-CoV-2 (event) Not sure [facility] Start: 06-07-2022 End: 10-17-2024 History of Social function [facility] Start: 06-07-2022 End: 10-17-2024 Tobacco use panel [facility] Start: 06-07-2022 Alcohol Comment occasional/wine or b eer [facility] Start: 03-03-2022 Gender identity Identifies as male gender (finding) [facility] Start: 03-03-2022 Sexual orientation Heterosexual (fin ding) [facility] Start: 09-14-2021 Sex Male (finding) [facility] Medical Equipment Procedure Code Equipment Code Equipment Origin al Text Equipment Identifier Dates Abbo-Card [id number] Durata [id number] [id number]_[facility] Start: 01-17-2012 Abbo-Card [id number] [place] Vr [id number] 18878[facility] Start: 11-08-2021 Device 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 Kenyon Stokes, DO Age/Sex: 89/M Location[facility] Status: Signed Intake Vital Signs 09/04/24 07:34 10/23/24 11:28 Height 5 ft 6 in 5 ft 6 in Weight: 146 lb 142 lb BMI 23.6 22.8 BP 100/60 108/62 Blood Pressure Location Lt brachial Lt brachial Position Sitting Sitting Respiration 18 14 Pulse 71 69 Pulse Source Monitor Monitor Temp 98.4 F 97.4 F L Temp Source Temporal Temporal Pulse Oximetry (%) 71 95 Oxygen Delivery Method room air room air Intake Visit Reasons: BLOOD WORK FOLLOW UP Financial Services Agent Required: No Accompanied by: Is patient in pain?: No Allergies No Known Allergies Allergy (Verified 09/04/24 07:24) Medications ?Medication ?Instructions ?Recorded ?Confirmed ?Type aspirin 81 mg chewable tablet 81 mg PO DAILY 09/11/15 10/23/24 History nitroglycerin 0.4 mg sublingual 0.4 mg sublingual Q5M PRN Chest 09/11/15 10/23/24 History tablet Pain simvastatin 40 mg tablet 40 mg PO QHS 09/11/15 History spironolactone 25 mg tablet 12.5 mg PO DAILY 09/11/15 10/23/24 History losartan 50 mg tablet 50 mg PO DAILY 08/25/2211/08 History carvedilol 6.25 mg tablet 6.25 mg PO BID 01/19/2411/08 History finasteride 5 mg tablet 5 mg PO DAILY 01/19/2410/23 History tamsulosin 0.4 mg capsule (Flomax) 0.4 mg PO DAILY 07/0710/23/24 History furosemide 20 mg tablet 20 mg PO QDAY PRN 10/23/24 0 10/23/24 History levetiracetam 500 mg tablet See Rx Instructions PO BID 10/23/24 10/23/24 History Have you fallen in the past year?: No Nurse's Note: Pt had labs drawn at neurology that [facility] Joseph[facility]. Pt has lab results on [facility]. Pt had labs drawn on 10/17/24. Pt has good days and bad days, since tuesday he's been okay. Calcium is 11.1, and bilibrubin is .2 out of range, and needed to discuss. Confirmed no otc meds or supplements. [facility] Medical History Loss of hearing Wears glasses Wears dentures Alcohol use High cholesterol Easy bruising Dietary restriction Non-smoker Hypertension History of stress test Cardiology follow-up encounter History of CHF (congestive heart failure) History of heart attack TIA (transient ischemic attack) Hx of fracture of hip Cardiac defibrillator in place Surgical History History of coronary artery stent placement History of cystoscopy Hx of right cataract extraction Hx of left cataract extraction Family History Mother CAD (coronary artery disease) Grandfather CAD (coronary artery disease) Brother Prostate cancer Sister Colon cancer Sister Throat cancer Social History adopted: No household members: spouse [...] feel safe at home: Yes HPI HPI Details: EFRAÍN MEREDITH, is a 89 M who presents to the office today for for a follow-up onhis elevated bilirubin and his elevated calcium. The patient had a brain bleed and when he was in the hospital he had some lab work and the lab work showed elevated bilirubin and elevated calcium. The bilirubin was minimal elevation and could certainly be explained by bodies reabsorption of the blood calcium wasin the mid 's and the needs to be followed up. He says he is feeling well nothaving much swelling, and when he does he takes 20 mg of Lasix and that seems totake care of the problem. He is mentally quite alert and although he is hard ofhearing he seems to function at a fairly high level. ROS Const Constitutional: No body ache, chills, [...] at rest, chest pain with exertion, excessive sweating,shortness of breath, dyspnea on exertion, lightheadedness, orthopnea or palpitations Gastro GI: No abdominal pain, change in bowel habits, constipation, cramping, diarrhea,nausea/dyspepsia or vomiting Genitourinary Male: No burning urination, [...] seasonal allergy symptoms, hives or wheezing Tony/Lymp Hematologic/Lymphatic: No easy bleeding, easy bruising, enlarged lymph nodes or other Exam Const General: cooperative and no acute distress Nutritional Appearance: thin Orientation: oriented x3 HENMT Head: normal to inspection Ears: hearing grossly impaired bilaterally Nose: external nose normal Face and sinus: normal facial exam Mouth: oral mucosae normal Teeth and gingiva: dentition normal Eyes General: appearance normal, both eyes and all related structures Other: Patient has had bilateral cataract surgery. Neck Neck: normal visual inspection Neck mass: No Thyroid: thyroid normal Chest Chest palpation & inspection: normal inspection of the chest and pacemaker Resp Effort & Inspection: normal respiratory effort Auscultation: Bilateral: Clear to Auscultation Cardio Rate: regular rate Rhythm: regular rhythm Heart Sounds: no murmurs GI Inspection: normal to inspection Musc Musculoskeletal: Yes decreased range of motion (Marked contractures of both hands.) Skin General: no rashes or lesions noted Neuro Cranial Nerves: CN's II-XI intact bilaterally Cognition: normal cognition Speech: speech normal Gait: normal gait Extrem General: no edema Other: dupuytrens contracture of both hands. Psych Appearance: grossly normal Mood: congruent mood Affect: normal affect Judgment: judgment good Coding Level of Care Code Off vis,est,level 3 Diagnoses Hypercalcemia E83.52 Peripheral edema R60.0 Hypertension I10 Hyperbilirubinemia E80.6 Assessment and Plan Assessment and Plan (1) Hypercalcemia: Status: Acute Plan: I will repeat a calcium along with a parathyroid hormone level. (2) Peripheral edema: Status: Chronic Plan: His edema is cleared up and he does take furosemide on an as-needed basis. (3) Hypertension: Status: Chronic Plan: His blood pressure is well-controlled. (4) Hyperbilirubinemia: Status: Acute Plan: I will repeat his bilirubin but I do not think it is elevated enough to be of any significance. Orders: Orders Comprehensive Metabolic Profil Today E83.52 - Hypercalcemia PTHIN Today E83.52 - Hypercalcemia Plan Details Health Concerns: I will notify Duy of the results and the follow-up. Clinical Quality Measures Falls Risk Screening/Assistive Devices Have you fallen in the past year?: No 10/23/24 1153 <Electronically signed by Devon scherer DO> Date _ Devon Stokes DO Cosigner Signature: Date (if applicable) CC: ~ [facility] [employer] Work Phone: [phone] 365-684409-03-2025 History of Present illness Narrative* Josephine Silvestre MD - 10/17/2024 10:00 AM EDT Images from the original note were not included. Department of Neurological Sciences Section of Epilepsy [address] [place] [id number] TEL: [phone] FAX:[phone] Epilepsy Clinic - New Referral Dear Dr. Altman, I had the pleasure of seeing Mr. Efraín Meredith in the subspecialty Epilepsy Clinic. Chief Complaint: Seizures History of Present Illness: Mr. Efraín Meredith is a 89 y.o. 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 Altman for intermittent left hand numbness c/f seizure. Today accompanied by . Timeline of events: - 07/29/2024, had acute onset of left arm numbness, aphasia and balance disturbance, was found to have R central sulcus SAH. - Since SAH, intermittently had right posterior hand numbness/paresthesia, occasionally may travel to upper arm, lasts 15 minutes and resolves completely. - Denies any sensory symptoms in other extremities, weakness, jerking/twitching, dropping objects, no recent falls, staring off/zoning out. - since his stroke, he has been confused about hs meds and loses track of time. - He was started LEV 500mg bid, not missing any doses. No side effects. - Am dose was discontinued by FERTILIZING MACHINE OPERATOR and Dr. Altman restarted am dose last week. - Mood: ok, life is beautiful Seizure type I - left hand numbness Onset: 07/29/24 Aura: none Ictal: right hand numbness, no jerking/twitching Duration: 15 minutes Post-Ictal: none Frequency: 1-2/day Triggers: none Last seizure: 10/16/24 Epilepsy Risk Factors: Abnormal : no Abnormal /: no Abnormal Development: no Febrile seizures: no BUSINESS DIVISION CHAIR infection: no Cerebral palsy: no Head injury (moderate/severe): no BUSINESS DIVISION CHAIR neoplasm: no BUSINESS DIVISION CHAIR malformation: no Neurosurgical procedure: no Stroke: 1999, 2024 Alcohol use disorder: no Drug abuse: no Family history Sz/epilepsy: no Current ASMs: LEV 500mg bid Prior ASMs: None Diagnostic studies: EEG : 07/31/24 routine normal 3T MRI: 07/2024 I personally reviewed the images, T2 flair hyperintensity along the right precentral gyrus consistent with SAH, mild chronic microvascular changes EMU: No Neuropsych: No Pertinent Labs: Reviewed No prior LEV level on file BMP wnl Medications: Medication Documentation Review Audit Reviewed by Josephine Silvestre MD (Physician) on 10/17/24 at 1010 Medication Order Taking? Sig Documenting Provider Last Dose Status aspirin 81 MG EC tablet [id number] Yes Take 81 mg by mouth daily. Historical Provider, Active atorvastatin (Lipitor) 20 MG tablet [id number] Yes Take 1 tablet (20 mg) by mouth Nightly. Sylvester Mohan, Active atorvastatin (Lipitor) 20 MG tablet [id number] Yes Take 20 mg by mouth daily. Historical Provider, Active carvedilol (Coreg) 6.25 MG tablet [id number] Yes Take 1 tablet (6.25 mg) by mouth 2 times daily (with meals). YVETTE Redmond CNP Active finasteride (Proscar) 5 MG tablet [id number] Yes Take 5 mg by mouth daily. Historical Provider, Active furosemide (Lasix) 20 MG tablet [id number] Yes Take 1 tablet (20 mg) by mouth daily. Patient taking differently: Take by mouth as needed. Chantel Huntley APRN - [facility] Active levETIRAcetam (Keppra) 500 MG tablet [id number] Yes Take 1 tablet (500 mg) by mouth 2 times daily. Patient taking differently: Take 500 mg by mouth daily. Sylvester Mohan, Active nitroglycerin (Nitrostat) 0.4 MG SL tablet [id number] Yes Place 0.4 mg under the tongue as needed. Patient taking differently: Place 0.4 mg under the tongue as needed for chest pain. Historical Provider, Active spironolactone (Aldactone) 25 MG tablet [id number] Yes Take 0.5 tablets (12.5 mg) by mouth daily. Jessica Arenas, IT PORTFOLIO MANAGER - ARCHITECTURAL DESIGNER Active tamsulosin (Flomax) 0.4 MG 24 hr capsule [id number] Yes Take 0.4 mg by mouth daily. Historical Provider, Active ROS: 10 point review of systems negative except as in HPI. Physical examination: Vitals: 10/17/24 0952 BP: 117/74 Pulse: 70 GEN: NAD HEENT: No conjunctival injection, no rhinorrhea. Head tilt to left PULM: Nonlabored respirations on room air. Neuro: MS: Alert, oriented to person, place, date. Speech is fluent with no paraphrasias. No dysarthria. CN: EOMI. Facial muscles symmetric without weakness. Hearing intact to conversation. MOTOR: Normal bulk and tone. No pronator drift. 5/5 throughout REFLEXES: 1+ throughout COORDINATION: No dysmetria or ataxia on [id number]. Slight b/l kinetic tremors. SENSORY: LT intact, extinction -ve GAIT: Normal gait, can rise from chair w/o using arms Impression and Recommendations: Mr. Efraín Meredith is a 89 y.o. right-handed male w/ HTN, recent right central sulcus SAH of [facility]aretiology 07/2024, since then has intermittent sensory symptoms in his left hand, lasting up to 15 minutes. I reviewed the MRIB with the patient, the location of SAH is highly epilpetogenic and patientneeds to be on ASM. Since, he still has the FAS while taking ASM, will increase the night time dose(feels slightly drowsy in am). Patient was clearly instructed to take ASM as prescribed by epilepsy provider and the dose of medication will only be managed by epilepsy provider. He and his agree with plan. Diagnosis: 1. 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 Forgetfulness, started after his stroke in 2024, could be multifactorial poor controlled seizures, ASM side effect and aging Plan: 1. CMP, LEV level 2. Increase LEV from 500 bid to 500/750mg 3. The patient was clearly advised regarding a avoid driving for 6 months after the last seizure. 4. In addition to lifestyle modifications, particularly the importance of refraining from alcohol and drugs, strict compliance, ensuring sufficient amount of sleep regularly and consuming multiple smaller meals and sufficient amount of water, the patient was advised to avoid any activities where there is a risk of serious injury in the event of a seizure. These activities, for example, include (but not limited to) climbing heights, operating heavy machines, working with open flame, swimming unattended by a reliable helper, etc. 5. I emphasized that non adherence to antiepileptic medications is a risk factor for injury and associated with a higher rate of in epilepsy. 6. Information for HOBSCOTCH provided 7. Continue to follow up with stroke clinic 8. RTC 2-3 months 9. Call/message w/ related Qs/Cs Dr. Agapito MD, thank you very much for letting us participate in the care of Mr. Efraín Meredith. Epilepsy Clinic Outpatient Progress Note & Billing by Time (2020 NAEC Guidelines): Time: (All time spent by provider-only, including documentation, for pre-/avis-hs-oaof/post- visit on the day of the visit ending at midnight on same day of visit). Encounter Code Level Time Spent (min) New Patient [id number] 15-29 [id number] 30-44 [id number] 45-59 [id number] 60-74 Established Patient [id number] 10-19 [id number] 20-29 54513 30-39 [id number] 40-54 Preparing for visit (review testing/procedures/notes) (min) Obtaining history (minutes) 15 Counseling, educating patient/family (minutes) 25 Ordering testing (minutes) Communicating with other providers (minutes) Charting (minutes) 10 Independently interpreting/documenting results (minutes) 10 Communicating test results to patient/family (minutes) 5 Total Time Today (min) = 65 Josephine Silvestre MD documented in this [facility]09-03-2025 Instructions* Patient Instructions* Josephine Silvestre MD - 10/17/2024 10:00 AM EDT Your plan: - Please complete the blood work - Please take Keppra 500mg in the morning and 750mg at night - Advised regarding a avoid driving for 6 months after the last seizure. - Lifestyle modifications, particularly the importance of refraining from alcohol and drugs, strictcompliance, ensuring sufficient amount of sleep regularly and consuming multiple smaller meals and sufficient amount of water, Advised to avoid any activities where there is a risk of serious injury in the event of a seizure. These activities, for example, include (but not limited to) climbing heights, operating heavy machines, working with open flame, swimming unattended by a reliable helper, etc. - I highly recommend using this free platform to improve your memory. You can find more info on http [email or web address]-[email or web address]-wqonhylq-[email or web address]-[email or web address] -[email or web address]/ To sign-up for the free program, simply email [email or web address] and say you d like to enroll in [email or web address]. Researchers at [facility] have developed an evidence based self- management program tailoredto individuals living with epilepsy and cognitive challenges. HOBSCOTCH (which stands for Home-Based Self-Management and Cognitive Training Changes Lives) consists of eight, one-on-one, FREE telehealth counseling sessions with a certified Cognitive Utility System Repairer, each lasting about 45 minutes to one hour. The sessions help individuals with epilepsy to adapt and work through various difficulties, including thinking or memory problems. documented in this [facility]08-28-2025 History of Present illness Narrative* Juan Altman MD - 10/11/2024 2:00 PM EDT Endovascular neurointerventional surgery note Reason for follow-up: Recent cortical sulcal subarachnoid hemorrhage HPI: The patient is a 65-diok-sxcv-old man who was recently admitted for headache and CT head and MRI demonstrated a right central sulcus subarachnoid hemorrhage. CT angiogram, followed by diagnostic cerebral angiogram did not demonstrate any aneurysm or vascular lesion. Patient was subsequently discharged home. He reports that he has been having repeated episodes of numbness/tingling starting in the left handand forearm. Occasionally the symptoms will go to the upper arm. There has been no motor movements or any changing mental status. He was recently seen by neurology PALLAVI colleague who has started tapering his antiepileptic drugs Medical History[1] Surgical History[2] Current Medications[3] Review of systems Sensory symptoms as described above Headaches are better No active chest pain No new shortness of breath No bleeding or bruising No new GI symptoms No new skeletal symptoms Exam: Patient is awake and alert Engages in meaningful conversation There is no facial asymmetry Visual bass are full to confrontation Speech is normal Strength is equal and symmetric in both upper and lower extremities. Strength is 5 out of 5 There are no abnormal sensations There is no ataxia Gait is normal Impression: Recent history of right cortical subarachnoid hemorrhage, no aneurysm or vascular lesion found Recurrent episodes of numbness/tingling in the left hand and forearm. The episodes are not reproducible by any hyperflexion or hyperextension of the wrist. Based on the location of the subarachnoid hemorrhage, there is a high suspicion of partial seizures. Recommendations MRI brain with and without contrast. Hopefully the subarachnoid hemorrhage is resolved and will be able to visualize a previously obscured of occult pathology in the right central sulcus I have advised him to resume his Keppra dose and not taper it. In the meantime, I have referred himto my epilepsy colleague for evaluation and an EEG because of high suspicion of partial seizures. Follow-up in 3 months. [1] Past Medical History: Diagnosis Date CAD (coronary artery disease) CHF (congestive heart failure) ([facility]) 10/2011 Hyperlipidemia Hypertension 1999 ICD (implantable cardioverter-defibrillator), single, in situ 12/29/2011 LV dysfunction Old [place] (myocardial infarction) 2011 Anterior Presence of stent in LAD coronary artery 07/05/02 : AYLIN to LAD, 10/18/11: AYLIN to ISS LAD Stroke ([facility]) 1999 [2] Past Surgical History: Procedure Laterality Date CARDIAC DEFIBRILLATOR PLACEMENT CARDIAC PROCEDURE CAROTID STENT 01/17/2012 CORONARY ANGIOPLASTY [3] Current Outpatient Medications: aspirin 81 MG EC tablet, Take 81 mg by mouth daily., Disp: , Rfl: carvedilol (Coreg) 6.25 MG tablet, Take 1 tablet (6.25 mg) by mouth 2 times daily (with meals)., Disp: 180 tablet, Rfl: 1 furosemide (Lasix) 20 MG tablet, Take 1 tablet (20 mg) by mouth daily. (Patient taking differently:Take by mouth as needed.), Disp: 30 tablet, Rfl: 0 levETIRAcetam (Keppra) 500 MG tablet, Take 1 tablet (500 mg) by mouth 2 times daily. (Patient taking differently: Take 500 mg by mouth daily.), Disp: 60 tablet, Rfl: 11 nitroglycerin (Nitrostat) 0.4 MG SL tablet, Place 0.4 mg under the tongue as needed. (Patient taking differently: Place 0.4 mg under the tongue as needed for chest pain.), Disp: , Rfl: spironolactone (Aldactone) 25 MG tablet, Take 0.5 tablets (12.5 mg) by mouth daily., Disp: 45 tablet, Rfl: 1 tamsulosin (Flomax) 0.4 MG 24 hr capsule, Take 0.4 mg by mouth daily., Disp: , Rfl: atorvastatin (Lipitor) 20 MG tablet, Take 1 tablet (20 mg) by mouth Nightly., Disp: 30 tablet, Rfl:11 atorvastatin (Lipitor) 20 MG tablet, Take 20 mg by mouth daily., Disp: , Rfl: finasteride (Proscar) 5 MG tablet, Take 5 mg by mouth daily., Disp: , Rfl: documented in this [facility]08-20-2025 History of Present illness Narrative* Connie Qiu APRN - ARCHITECTURAL DESIGNER - 10/03/2024 1:00 PM EDT Visit type: Established Patient Reason for Visit: Follow-up and Hospital Follow-up (Brain bleed) Assessment and Plan 1. SAH (subarachnoid hemorrhage) (HCC) 2. Numbness and tingling in left hand Subjective HPI: Hospital follow up - SAH 08/08 likely r/t HTN- presented with intermittent slurred speech, LUE weakness and numbness Hx HTN, HLD, CAD, s/p stent, HFrEF (25%); s/sp ICD, TIA CT Head 07/29/24: Subarachnoid hemorrhage within the superior right frontal lobe, just anterior to the central sulcus. CT Head 07/30/24: Stable small volume acute subarachnoid hemorrhage. No new acute findings CTA head/neck 07/29/24: The intracranial right vertebral artery is faintly opacified and only a few thin and diminutive portions of the left intracranial vertebral artery are opacified. Only the thin and diminutive distal basilar artery is opacified. MRI Brain/MRV head 07/30/24: 1. Negative for dural venous sinus thrombosis. 2. Stable subarachnoid hemorrhage along the right central sulcus. No other acute intracranial abnormalities. 3. 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 TTE 07/29/24 - 27% Followed by neuroendovascular while in patient; will follow OP 10/11/24 Diagnostic angiogram - no aneurysms, vascular malformation, or intracranial dissection identified as cause. Mild multifocal intracranial atherosclerosis. Placed on Keppra 500mg BID for ongoing complaints of fluctuating tingling sensation - EEG 08/08- [place] No history of seizures. Today, patient states each day he gets a little better; working our in the yard Speech is back to normal. No more weakness in LUE. Still having intermittent tingling in last finger tips of left hand that sometime goes up to elbow (it was the entire left arm when he presented to ED); lasts about 45 mins then goes away. Overall, this is better than when he first went into hospital. No trigger. No pain in neck, hand, or shooting pain from neck.. He is still taking Keppra 500mg BID and having this sensation. Evaluated by PT - said not needed. REVIEW OF SYSTEMS: Review of Systems Neurological: Tingling in left hand intermittently All other systems reviewed and are negative. Allergies[1] Current Medications[2] Medical History[3] Social History Tobacco Use Smoking status: Never Smokeless tobacco: Never Substance Use Topics Alcohol use: Yes Alcohol/week: 1.0 standard drink of alcohol Types: 1 Glasses of wine per week Comment: occasional/wine or beer Surgical History[4] Family History[5] Objective Vitals: BP 130/66 (BP Location: Left arm, Patient Position: Sitting, BP Cuff Size: Adult) Pulse 65 Ht 5' 6 (1.676 m) Wt 139 lb 9.6 oz (63.3 kg) BMI 22.53 kg/m General Appearance: Patient is in no apparent distress. Head is normocephalic, atraumatic Cardiovascular: Regular rate and rhythm. No heart murmurs. No carotid bruit Neurologic: Mentation: Alert and oriented x 3 to person, place and time. Speech and Language: Speech and language normal Concentration and Attention: Concentration normal Memory: Memory normal 3/3 immediate and short recall Fund of Knowledge: Fund of knowledge normal Cranial Nerves: II, III, IV, V, , VII, VIII, IX, X, XI, XII examined and were intact. Motor: Strength: Strength 5 out of 5 with normal tone Alternating Movements: Normal Cogwheel Rigidity: None Tone: Tone is normal Tremor / Involuntary Movements: None Deep Tendon Reflexes: 1 out of 4 symmetrical in all four limbs. Sensory: Normal sensation upper and lower extremities - pinprick and vibratory sensation normal left upper Coordination: Normal coordination upper and lower extremities Gait and Station: Station is normal. Gait is normal Data Reviewed and Summarized DIAGNOSTIC TESTING CBC: Lab Results Component Value Date WBC 11.4 (H) 08/01/2024 RBC 4.85 08/01/2024 RBC 4.97 10/26/2021 HGB 14.0 08/01/2024 HCT 42.1 08/01/2024 MCV 86.8 08/01/2024 MCH 28.9 08/01/2024 MCHC 33.3 08/01/2024 RDW 13.3 08/01/2024 PLT 215 08/01/2024 MPV 11.0 08/01/2024 CMP: Lab Results Component Value Date NA 137 08/01/2024 K 4.0 08/01/2024 CL 108 (H) 08/01/2024 CO2 21 (L) 08/01/2024 BUN 16 08/01/2024 CREATININE 0.92 08/01/2024 CREATININE 1.23 10/26/2021 LABGLOM 59 10/26/2021 GLUCOSE 115 08/01/2024 PROT 7.1 08/01/2024 CALCIUM 9.2 08/01/2024 BILITOT 0.9 08/01/2024 ALKPHOS 74 08/01/2024 AST 20 08/01/2024 ALT 25 08/01/2024 BMP: Lab Results Component Value Date NA 137 08/01/2024 K 4.0 08/01/2024 CL 108 (H) 08/01/2024 CO2 21 (L) 08/01/2024 BUN 16 08/01/2024 CREATININE 0.92 08/01/2024 CREATININE 1.23 10/26/2021 CALCIUM 9.2 08/01/2024 LABGLOM 59 10/26/2021 GLUCOSE 115 08/01/2024 PT/INR: Lab Results Component Value Date PROTIME 11.1 08/01/2024 INR 1.0 08/01/2024 PTT: Lab Results Component Value Date APTT 24.4 08/01/2024 [APTT} FLP: Lab Results Component Value Date TRIG 74 08/18/2022 HDL 58 08/18/2022 LDLCALC 45 08/18/2022 TSH: No results found for: TSH VITAMIN B12: No results found for: [id number] No results found for: PHENYTOIN, PHENOBARB, VALPROATE, CBMZ No components found for: TOPIRA @RESULTINGLABINFO@ No results found for: LEVETIRACETA, FERRITIN, CRP, ORESTES, ANCA No results found for: JULISA, IMMUNOGLOBUL, OLIGOBANDS No results found for: [id number], HEPCAB No results found for: CRP, ANATITER, ANCA FERRITIN: No results found for: FERRITIN ---- Cardiac device check - Remote NB walk in ICD REMOTE, VT episode. Normal device function. Battery 3.01V, Est Longevity 8.3yrs, Charge time 9.1sec, Last cap reform on: 01.27.25 RV Lead 12 mV, 350 Ohms, HV 64Ohms, [employer] 0%. EPISODES: 8.25 - NonSustained VT for 15 sec HR 202 bpm spontaneous conversion. Patient on BB. Next remote on: 12.03.24. Dr. Calle, SP. Donna Degroot, RN @LASTAPPOINTMENTTHISPROV@ IMPRESSION and PLAN: Problem List Items Addressed This Visit None Visit Diagnoses SAH (subarachnoid hemorrhage) (HCC) - Primary Numbness and tingling in left hand No new symptoms; doing well. Continue with BP control. Continue with follow up with Dr. Altman Still present, but overall improving. I will have him taper off keppra and watch symptoms. Stop morning dose of keppra x 1 week, then stop evening dose. Call if issues. Will monitor; consider EMG/NCSin future. Will have him hold off on driving for now until we see how he does while coming off keppra. RTO 8 weeks YVETTE Tolentino CNP I spent 39 minutes caring for this patient today, reviewing labs, records, seeing the patient, documenting in the record and arranging for studies. Electronically signed by YVETTE Tolentino CNP on @TDNR@ at @NOWNR@ [1] No Known Allergies [2] Current Outpatient Medications: aspirin 81 MG EC tablet, Take 81 mg by mouth daily., Disp: , Rfl: atorvastatin (Lipitor) 20 MG tablet, Take 20 mg by mouth daily., Disp: , Rfl: carvedilol (Coreg) 6.25 MG tablet, Take 1 tablet (6.25 mg) by mouth 2 times daily (with meals)., Disp: 180 tablet, Rfl: 1 [Paused] finasteride (Proscar) 5 MG tablet, Take 5 mg by mouth daily., Disp: , Rfl: furosemide (Lasix) 20 MG tablet, Take 1 tablet (20 mg) by mouth daily. (Patient taking differently:Take by mouth as needed.), Disp: 30 tablet, Rfl: 0 levETIRAcetam (Keppra) 500 MG tablet, Take 1 tablet (500 mg) by mouth 2 times daily., Disp: 60 tablet, Rfl: 11 [Paused] nitroglycerin (Nitrostat) 0.4 MG SL tablet, Place 0.4 mg under the tongue as needed., Disp: , Rfl: [Paused] spironolactone (Aldactone) 25 MG tablet, Take 0.5 tablets (12.5 mg) by mouth daily., Disp:45 tablet, Rfl: 1 spironolactone (Aldactone) 25 MG tablet, Take 12.5 mg by mouth daily., Disp: , Rfl: [Paused] tamsulosin (Flomax) 0.4 MG 24 hr capsule, Take 0.4 mg by mouth daily., Disp: , Rfl: atorvastatin (Lipitor) 20 MG tablet, Take 1 tablet (20 mg) by mouth Nightly., Disp: 30 tablet, Rfl:11 [Paused] losartan (Cozaar) 50 MG tablet, Take 1 tablet (50 mg) by mouth daily. (Patient not taking:Reported on 08/08/2024), Disp: 90 tablet, Rfl: 3 [3] Past Medical History: Diagnosis Date CAD (coronary artery disease) CHF (congestive heart failure) ([facility]) 10/2011 Hyperlipidemia Hypertension 1999 ICD (implantable cardioverter-defibrillator), single, in situ 12/29/2011 LV dysfunction Old [place] (myocardial infarction) 2011 Anterior Presence of stent in LAD coronary artery 07/05/02 : AYLIN to LAD, 10/18/11: AYLIN to ISS LAD Stroke ([facility]) 1999 [4] Past Surgical History: Procedure Laterality Date CARDIAC DEFIBRILLATOR PLACEMENT CARDIAC PROCEDURE CAROTID STENT 01/17/2012 CORONARY ANGIOPLASTY [5] Family History Problem Relation Name Age of Onset Heart failure Mother Lurdes Linares Heart Surgery Mother Lurdes Linares Heart disease Mother Lurdes Linares Pacemaker Brother Les Milanfee Heart failure Brother Les Edel Heart failure Sister Radha Arnold Heart failure Sister Radha Arnold documented in this [facility]08-20-2025 Instructions* Patient Instructions* YVETTE Tolentino CNP - 10/03/2024 1:00 PM EDT Taper off levitiracetam (keppra) - stop morning dose for 1 week, then stop night dose. Call me if tingling symptoms in left hand increases. Don't resume driving until we see how you do off the medication. Dr. Altman - 10/11/24 2pm [facility] Department Physical Address: [address] [place] [id number] documented in this [facility]08-11-2025 Telephone encounter Note* Telephone Encounter - Ary Kraus RN - 09/24/2024 1:03 PM EDT Last OV-08/08/24 Next OV-02/04/25 Labs- 08[facility]01/[id number] Miscellaneous Notes* Telephone Encounter - Ary Kraus RN - 09/24/2024 1:03 PM EDT Last OV-08/08/24 Next OV-02/04/25 Labs- 08/01/24 [id number] History of Present illness Narrative* Vanessa Hoffman APRN - RIMA - 08/22/2024 9:45 AM EDT Images from the original note were not included. [facility] [address] [place] [address] Visit type: Hospital Follow up appointment Reason for Visit: Efraín Meredith is a 88 y.o. male with chief complaint of Depression and Anxiety Assessment and Plan Diagnoses and all orders for this visit: Intracranial hemorrhage (HCC)- s/p hospitalization, improved neurologic symptoms including left upper extremitity. Notes that this is improved. - [facility] [place] [facility] - [address] HFrEF (heart failure with reduced ejection fraction) (HCC)- follows with cardiology. Palliative care encounter- Met with Duy and Lily. He does have HCPOA and living will completed. Discussed his goals of care and performed life review. Discussed code status. He is open to discussing his wishes more openly with Lily. Also notes that he continues to grieve his ability to get older. - [facility] [place] [facility] - [address] No orders of the defined types were placed in this encounter. Subjective Duy is met today is hospital follow up appointment. He notes that he is feeling better. Also notes that he is adjusting to the grief that I'm not a kid anymore. Notes that it is hard for him to be active like he used to. Notes that he sometimes feels worried at night due to changes in his health.Denies nausea, vomitting. Occasional headaches. Also notes difficulty with bright vision due to thesun. Has 1 day last week with some word finding difficulty and headaches. Pain Assessment (If Pain Scale >0) No pain 0 Mccoy Symptom Assessment Score Mccoy Symptom Assessment System Pain Score: 1 Tiredness Score: 1 Nausea Score: 1 Depression Score: 2 Anxiety Score: 2 Drowsiness Score: 1 Appetite Score: 1 Wellbeing Score: 1 Dyspnea Score: 1 Other Problem Score: 1 Assessed by:patient Review of Systems PCP: Devon Stokes Goals of care: Live Longer, extend life as much as possible and Improve or Maintain Function/Quality of Life Code status: Full Code Advance directives: Health Care Proxy, Living Will- have at home Surrogate: HCPOA/ Lily Prognosis: uncertain at this time Spiritual assessment: No spiritual distress identified Bereavement and grief: Grief Issues Not Identified Social history: Marital status: Living status: with spouse 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 Constitutional: Appearance: He is normal weight. HENT: Mouth/Throat: Mouth: Mucous membranes are moist. Eyes: General: No scleral icterus. Extraocular Movements: Extraocular movements intact. Pupils: Pupils are equal, round, and reactive to light. Cardiovascular: Rate and Rhythm: Normal rate and regular rhythm. Pulses: Normal pulses. Pulmonary: Effort: Pulmonary effort is normal. Breath sounds: Normal breath sounds. No wheezing or rales. Abdominal: General: Abdomen is flat. There is no distension. Tenderness: There is no abdominal tenderness. Musculoskeletal: General: Normal range of motion. Right lower leg: No edema. Left lower leg: No edema. Skin: General: Skin is warm. Coloration: Skin is pale. Findings: No rash. Neurological: General: No focal deficit present. Mental Status: He is alert and oriented to person, place, and time. Cranial Nerves: No cranial nerve deficit. Psychiatric: Mood and Affect: Mood normal. ECOG: ECOG : 1 - Restricted in physically strenuous activity but ambulatory and able to carry out work of a light or sedentary nature, e.g., light house work, office work PPS:80 Data Reviewed and Summarized Opiate Risk Assessment Tool SOAPP given yes SOAPP score: <7, low risk Red Flags for Abuse or Diversion: None Identified Results/Verification of Data Review Objective data reviewed: Labs: Lab Results Component Value Date WBC 11.4 (H) 08/01/2024 HGB 14.0 08/01/2024 HCT 42.1 08/01/2024 MCV 86.8 08/01/2024 PLT 215 08/01/2024 Lab Results Component Value Date NA 137 08/01/2024 K 4.0 08/01/2024 CL 108 (H) 08/01/2024 CO2 21 (L) 08/01/2024 BUN 16 08/01/2024 CREATININE 0.92 08/01/2024 GLUCOSE 115 08/01/2024 CALCIUM 9.2 08/01/2024 PROT 7.1 08/01/2024 BILITOT 0.9 08/01/2024 ALKPHOS 74 08/01/2024 AST 20 08/01/2024 ALT 25 08/01/2024 LABGLOM 59 10/26/2021 No results found for: PSA, CEA, CA125, NF1039, CA199 \ * Michelle Elizabeth MA - 08/22/2024 9:45 AM EDT What is the most important item you want to discuss with your provider today? Not symptomatic just getting established if need be. Complete med rec line by line. Yes Do you need refills on any medications today? No Pharmacy confirmed in Med management section. Yes documented in this [facility]07-07-2025 Discharge summary [facility] [address] [place] [address] / REHABILITATION SERVICES DISCHARGE SUMMARY MR#: [id number] Acct: [id number] Name: EFRAÍN MEREDITH Rep #: [id number] 005 : 1935 88 From: Hitesh Dee PT, ATC Referring Dr.: SAMIA Casas Status: REG RCR Insurance: [facility] [employer] SELF PAY INSURANCE Patient Information Patient Information: EFRAÍN MEREDITH was seen in my office for initial evaluation on 08/20/24. The following Plan of Care was established for this patient: Anticipated Interventions Patient/Client Instruction: Educate patient on: Condition and Plan of Care For the Purpose of:: To improve self management Last Seen Last Seen: This patient was last seen in our office . Pertinent comments regarding their Physical therapy willappear below: Skilled PT is not necessary at this time. At this point I will be discontinuing this patient from physical therapy. I would be happy to see this patient again in the future if found appropriate by the physician. Thank you! Hitesh Dee PT, ATC 08/20/24 0984 CC: SAMIA Casas; Dr. Devon Stokes, DO ~ [facility] Signed [facility]06-25-2025 Evaluation + Plan note* Assessment & Plan Note - YVETTE Redmond CNP - 08/08/2024 3:26 PM EDTAssociated Problem(s): Intracranial hemorrhage (HCC) He had an intracranial hemorrhage of unknown etiology. He has mild speech delay and persistent leftarm and hand numbness. Otherwise he looks amazing. He is on Keppra 500 mg twice daily which he will follow up with neurology for. His blood pressure is good but it is soft therefore I have not resumed his losartan. His will continue to monitor his blood pressure and she will call if it starts to rise. I have encouraged him to stay out of his heat and to stay hydrated. [id number] Miscellaneous Notes* Assessment & Plan Note - YVETTE Redmond CNP - 08/08/2024 3:26 PM EDTAssociated Problem(s): Intracranial hemorrhage (HCC) He had an intracranial hemorrhage of unknown etiology. He has mild speech delay and persistent leftarm and hand numbness. Otherwise he looks amazing. He is on Keppra 500 mg twice daily which he will follow up with neurology for. His blood pressure is good but it is soft therefore I have not resumed his losartan. His will continue to monitor his blood pressure and she will call if it starts to rise. I have encouraged him to stay out of his heat and to stay hydrated. * Assessment & Plan Note - YVETTE Redmond CNP - 08/08/2024 3:25 PM EDT Associated Problem(s): ICD (implantable cardioverter-defibrillator), single, in situ He has an ICD in place it is functioning normally and he follows in our device clinic. * Assessment & Plan Note - YVETTE Redmond CNP - 08/08/2024 3:25 PM EDT Associated Problem(s): CAD (coronary artery disease) Stable coronary artery disease no chest pain or shortness of breath. He is now on atorvastatin 20 mg daily and will continue this. He will restart aspirin 81 mg on August 14. documented in this [facility]06-25-2025 Evaluation + Plan note* Assessment & Plan Note - YVETTE Redmond CNP - 08/08/2024 3:25 PM EDT Associated Problem(s): ICD (implantable cardioverter-defibrillator), single, in situ He has an ICD in place it is functioning normally and he follows in our device clinic. [id number] Evaluation + Plan note* Assessment & Plan Note - YVETTE Redmond CNP - 08/08/2024 3:25 PM EDTAssociated Problem(s): CAD (coronary artery disease) Stable coronary artery disease no chest pain or shortness of breath. He is now on atorvastatin 20 mg daily and will continue this. He will restart aspirin 81 mg on August 14. [facility] [id number] History of Present illness Narrative* YVETTE Redmond CNP - 08/08/2024 3:00 PM EDT Images from the original note were not included. [facility] - [address] [address] Dept: [phone] Dept Visit type: Established : 1935 Reason for Visit: Hospital Follow-up (Brain bleed of unknown cause) Assessment and Plan 1. Intracranial hemorrhage (HCC) Assessment & Plan: He had an intracranial hemorrhage of unknown etiology. He has mild speech delay and persistent leftarm and hand numbness. Otherwise he looks amazing. He is on Keppra 500 mg twice daily which he will follow up with neurology for. His blood pressure is good but it is soft therefore I have not resumed his losartan. His will continue to monitor his blood pressure and she will call if it starts to rise. I have encouraged him to stay out of his heat and to stay hydrated. Orders: - ECG 12 lead - CLINIC PERFORMED 2. ICD (implantable cardioverter-defibrillator), single, in situ Assessment & Plan: He has an ICD in place it is functioning normally and he follows in our device clinic. 3. Coronary artery disease involving [place] coronary artery of [place] heart without angina pectoris Assessment & Plan: Stable coronary artery disease no chest pain or shortness of breath. He is now on atorvastatin 20 mg daily and will continue this. He will restart aspirin 81 mg on August 14. Follow up in about 6 months (around 02/07/2025), or with [facility]. Subjective Efraín Meredith is a 88 y.o. male known to Dr. Calle with a history of ischemic cardiomyopathy and isstatus post ICD implantation and the primary prevention of sudden cardiac . On 07/29 he arrived at [facility] after initially presenting to [place] ED after intermittent LUE numbness x 5 days and slurred speech. He was transferred to ICU for further management. His NIH was 4 and he had stat CT head which showed Subarachnoid hemorrhage within the superior right frontal lobe, just anterior to the central sulcus. Stat CTA head neck showed Known area of posterior left frontal lobe subarachnoid hemorrhage. Patient was started on Nicardipine gtt to maintain SBPless than 140. Per Neuro Critical Care his ICH score was 1 and is Ok to start ASA 81 in 14 days (August 14) and needs OP Neurology followup. Spot EEG showed no abnormal slowing, interictal epileptiform or seizures. Cerebral angiogram showed no aneurysms, vascular malformations or dural AV fistulas were identified as a cause for right cortical subarachnoid hemorrhage. There is no significant intracranial dissection, mild multifocal intracranial atherosclerosis. His called 08/03 with concerns that he was off all of his cardiac meds. He presents for follow up Efraín Meredith presents for evaluation with his . He states he is still having a little bit of trouble with his speech and weakness in his left arm and hand but has been working with the therapy ball to try and strengthen it. 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 He denies chest pain, palpitations, dizziness, syncope, near syncope or shortness of breath. He is back on carvedilol and Aldactone and his blood pressure is good today. His has been checking it daily and it systolic has been around 115-120. Review of Systems Constitutional: Positive for fatigue. Negative for chills, diaphoresis and fever. HENT: Negative for nosebleeds. Eyes: Negative for visual disturbance. Respiratory: Negative for chest tightness, shortness of breath and wheezing. Cardiovascular: Negative for chest pain, palpitations and leg swelling. Gastrointestinal: Negative for abdominal pain, blood in stool and diarrhea. Genitourinary: Negative for hematuria. Musculoskeletal: Negative for myalgias. Neurological: Negative for dizziness and syncope. Mild speech delay and left arm numbness Hematological: Does not bruise/bleed easily. Allergies[1] Current Medications[2] Medical History[3] Social History Tobacco Use Smoking status: Never Smokeless tobacco: Never Substance Use Topics Alcohol use: Yes Comment: occasional/wine or beer Surgical History[4] Family History[5] Objective Vitals: 08/08/24 1436 BP: 100/62 BP Location: Right arm Patient Position: Sitting BP Cuff Size: Large adult Pulse: 65 SpO2: 95% Weight: 145 lb (65.8 kg) Height: 5' 6 (1.676 m) Physical Exam Constitutional: General: He is not in acute distress. Appearance: He is not diaphoretic. HENT: Head: Normocephalic. Nose: Nose normal. Mouth/Throat: Mouth: Mucous membranes are moist. Pharynx: No oropharyngeal exudate. Eyes: General: No scleral icterus. Right eye: No discharge. Left eye: No discharge. Neck: Thyroid: No thyromegaly. Vascular: No carotid bruit or JVD. Cardiovascular: Rate and Rhythm: Normal rate and regular rhythm. Pulses: Normal pulses. Heart sounds: Normal heart sounds. Pulmonary: Effort: Pulmonary effort is normal. Breath sounds: Normal breath sounds. Abdominal: General: Bowel sounds are normal. There is no distension. Palpations: There is no hepatomegaly. Tenderness: There is no abdominal tenderness. Musculoskeletal: General: Normal range of motion. Cervical back: Normal range of motion. Right lower leg: No edema. Left lower leg: No edema. Skin: General: Skin is warm and dry. Neurological: Mental Status: He is oriented to person, place, and time. Motor: Weakness (Left arm and hand) present. Comments: Mild delay of speech Psychiatric: Mood and Affect: Mood normal. Behavior: Behavior normal. Data Reviewed and Summarized EF BP Date Value Ref Range Status 07/30/2024 27 (A) 55 - 100 % Final Review of tests/labs done/ordered within my specialty: EKG in office: Normal sinus rhythm at 65 bpm with a first-degree AV block Review of tests/labs done/ordered outside my specialty: Independent interpretation of tests: Chantel Huntley, IT PORTFOLIO MANAGER - ARCHITECTURAL DESIGNER [1] No Known Allergies [2] Current Outpatient Medications: atorvastatin (Lipitor) 20 MG tablet, Take 20 mg by mouth daily., Disp: , Rfl: [Paused] carvedilol (Coreg) 6.25 MG tablet, Take 1 tablet (6.25 mg) by mouth 2 times daily (with meals)., Disp: 180 tablet, Rfl: 0 [Paused] finasteride (Proscar) 5 MG tablet, Take 5 mg by mouth daily., Disp: , Rfl: levETIRAcetam (Keppra) 500 MG tablet, Take 1 tablet (500 mg) by mouth 2 times daily., Disp: 60 tablet, Rfl: 11 [Paused] spironolactone (Aldactone) 25 MG tablet, Take 0.5 tablets (12.5 mg) by mouth daily., Disp:45 tablet, Rfl: 1 [Paused] tamsulosin (Flomax) 0.4 MG 24 hr capsule, Take 0.4 mg by mouth daily., Disp: , Rfl: [Paused] aspirin 81 MG EC tablet, Take 81 mg by mouth daily. (Patient not taking: Reported on 08/08/2024), Disp: , Rfl: atorvastatin (Lipitor) 20 MG tablet, Take 1 tablet (20 mg) by mouth Nightly., Disp: 30 tablet, Rfl:11 [Paused] losartan (Cozaar) 50 MG tablet, Take 1 tablet (50 mg) by mouth daily. (Patient not taking:Reported on 08/08/2024), Disp: 90 tablet, Rfl: 3 [Paused] nitroglycerin (Nitrostat) 0.4 MG SL tablet, Place 0.4 mg under the tongue as needed., Disp: , Rfl: [3] Past Medical History: Diagnosis Date CAD (coronary artery disease) Hyperlipidemia ICD (implantable cardioverter-defibrillator), single, in situ 12/29/2011 LV dysfunction Old [place] (myocardial infarction) 2011 Anterior Presence of stent in LAD coronary artery 07/05/02 : AYLIN to LAD, 10/18/11: AYLIN to ISS LAD [4] Past Surgical History: Procedure Laterality Date CARDIAC DEFIBRILLATOR PLACEMENT CARDIAC PROCEDURE CORONARY ANGIOPLASTY [5] Family History Problem Relation Name Age of Onset Heart failure Mother Heart Surgery Mother Pacemaker Brother documented in this [place] [id number] Evaluation note* Diagnosis Onset Date Resolution Status Admit Date Hospital discharge follow-up acute August 07, 2024 8:53am Skin lesion of scalp acute August 07, 2024 8:53am Subarachnoid hemorrhage acute [facility] 2024 8:53am Weakness of left upper extremity acu te August 07, 2024 8:53am Dupuytren's contracture of b oth hands chronic August 07, 2024 8:53am [facility] Work Phone: 1(396) 630-260506-24-2025 Evaluation note* Diagnosis Onset Date Resolution Status Admit Date Hospital discharge follow-up acute August 07, 2024 8:53am Skin lesion of scalp acute August 07, 2024 8:53am Subarachnoid hemorrhage acute [facility] 2024 8:53am Weakness of left upper extremity acu te August 07, 2024 8:53am Dupuytren's contracture of b oth hands chronic August 07, 2024 8:53am Heart disease acute September 04, 2024 7:21am [facility] Work Phone: 1(887) 323-804906-24-2025 Evaluation note* Diagnosis Onset Date Resolution Status Admit Date Hospital discharge follow-up acute August 07, 2024 8:53am Skin lesion of scalp acute August 07, 2024 8:53am Subarachnoid hemorrhage acute [facility] 2024 8:53am Weakness of left upper extremity acu te August 07, 2024 8:53am Dupuytren's contracture of b oth hands chronic August 07, 2024 8:53am CHF (congestive heart failure) acute September 04, 2024 7:21am Peripheral edema acute August 7:21am [facility] Work Phone: 1(986) 852-524406-24-2025 Evaluation note* Diagnosis Onset Date Resolution Status Admit Date Hospital discharge follow-up acute August 07, 2024 8:53am Skin lesion of scalp acute August 07, 2024 8:53am Subarachnoid hemorrhage acute [facility] 2024 8:53am Weakness of left upper extremity acu te August 07, 2024 8:53am Dupuytren's contracture of b oth hands chronic August 07, 2024 8:53am CHF (congestive heart failure) acute September 04, 2024 7:21am Peripheral edema chronic August 7:21am Hyperbilirubinemia acute 2024 11:11am Hypercalcemia acute October 232024 11:11am Hypertension chronic October 11:11am Peripheral edema chronic Octembe r 2024 11:11am [facility] Work Phone: 1(382) 152-2199408922-03-6345 Telephone encounter Note* Telephone Encounter - Diamond Peoples - 08/06/2024 8:29 AM EDT Cecilia, I read new Af clinic pt. I will make sure it is changed. [id number] Miscellaneous Notes* Telephone Encounter - Diamond Peoples - 08/06/2024 8:29 AM EDT Cecilia, I read new [facility] clinic pt. I will make sure it is changed. * Telephone Encounter - Diamond Peoples - 08/03/2024 1:47 PM EDT Pt's called because she didn't understand Lydia's message. I did reschedule pt to come in for one hour with SACHI on 08/08/24. * Telephone Encounter - Jessica Arenas APRN - [facility] - 08/03/2024 1:13 PM EDT Spoke to BP 133/72, HR 97 and pulse ox 96%. Follows with Dr calle. They live in [place] and agreeable to come in Tuesday. SACHI has an opening at 1:30 08/07/24 Advise to start Coreg and aldactone tomorrow. Reassess at OV concerning other medications. She will monitor BP until follow up appt. Please Schedule him an OV at 1:30 08/07/24. aware and said you would call if an issue with the time offered. * Telephone Encounter - Diamond Peoples - 08/03/2024 12:48 PM EDT Lily (pts ) called with BP readin/72 Please return her call. * Telephone Encounter - YVETTE Siddiqui CNP - 08/03/2024 11:32 AM EDT PC offer appt at 1:30. She bought a BP cuff, but is a blue tooth and currently being charged. She wants to have a nurse neighbor check BP. She will call back with a reading. * Telephone Encounter - YVETTE Siddiqui CNP - 08/03/2024 9:15 AM EDT PC spoke to he is not on metoprolol He is on Coreg, aldactone and losartan. He had no cardiac complaints today. Reviewed BP at discharge stable 123/75 and 120/68 08/01/24. * Telephone Encounter - Diamond Peoples - 08/03/2024 8:20 AM EDT Pts Lily called. was admitted for brain bleed and released on Tuesday. She is concerned about all of the meds that were paused that are for his heart. Paused meds include: aspirin, carvedilol, losartan, metroprolol, spironolactone New meds included: aporvastatin, levetiracetam Please call her. She is very concerned. [phone] TEOFILO; 06/04/24 NOV: none scheduled [id number] Telephone encounter Note* Telephone Encounter - Diamond Peoples - 08/03/2024 1:47 PM EDT Pt's called because she didn't understand Lydia's message. I did reschedule pt to come in for one hour with LO on 08/08/24. [facility] [id number] Miscellaneous Notes* Telephone Encounter - Diamond Peoples - 08/03/2024 1:47 PM EDT Pt's called because she didn't understand Lydia's message. I did reschedule pt to come in for one hour with LO on 08/08/24. * Telephone Encounter - YVETTE Siddiqui CNP - 08/03/2024 1:13 PM EDT Spoke to BP 133/72, HR 97 and pulse ox 96%. Follows with Dr calle. They live in [place] and agreeable to come in Tuesday. LO has an opening at 1:30 08/07/24 Advise to start Coreg and aldactone tomorrow. Reassess at OV concerning other medications. She will monitor BP until follow up appt. Please Schedule him an OV at 1:30 08/07/24. aware and said you would call if an issue with the time offered. * Telephone Encounter - Diamond Peoples - 08/03/2024 12:48 PM EDT Lily (pts ) called with BP readin/72 Please return her call. * Telephone Encounter - YVETTE Siddiqui CNP - 08/03/2024 11:32 AM EDT PC offer appt at 1:30. She bought a BP cuff, but is a blue tooth and currently being charged. She wants to have a nurse neighbor check BP. She will call back with a reading. * Telephone Encounter - YVETTE Siddiqui CNP - 08/03/2024 9:15 AM EDT PC spoke to he is not on metoprolol He is on Coreg, aldactone and losartan. He had no cardiac complaints today. Reviewed BP at discharge stable 123/75 and 120/68 08/01/24. * Telephone Encounter - Diamond Peoples - 08/03/2024 8:20 AM EDT Pts Lily called. was admitted for brain bleed and released on Tuesday. She is concerned about all of the meds that were paused that are for his heart. Paused meds include: aspirin, carvedilol, losartan, metroprolol, spironolactone New meds included: aporvastatin, levetiracetam Please call her. She is very concerned. [phone] TEOFILO; 06/04/24 NOV: none scheduled documented in this [facility]06-20-2025 Telephone encounter Note* Telephone Encounter - YVETTE Siddiqui CNP - 08/03/2024 1:13 PM EDT Spoke to BP 133/72, HR 97 and pulse ox 96%. Follows with Dr calle. They live in [place] and agreeable to come in Tuesday. LO has an opening at 1:30 08/07/24 Advise to start Coreg and aldactone tomorrow. Reassess at OV concerning other medications. She will monitor BP until follow up appt. Please Schedule him an OV at 1:30 08/07/24. aware and said you would call if an issue with the time offered. [facility] [id number] Telephone encounter Note* Telephone Encounter - Diamond Peoples - 08/03/2024 12:48 PM EDT Lily (pts ) called with BP readin/72 Please return her call. [facility] [id number] Telephone encounter Note* Telephone Encounter - YVETTE Siddiqui CNP - 08/03/2024 11:32 AM EDT PC offer appt at 1:30. She bought a BP cuff, but is a blue tooth and currently being charged. She wants to have a nurse neighbor check BP. She will call back with a reading. [facility] [id number] Telephone encounter Note* Telephone Encounter - YVETTE Siddiqui CNP - 08/03/2024 9:15 AM EDT PC spoke to he is not on metoprolol He is on Coreg, aldactone and losartan. He had no cardiac complaints today. Reviewed BP at discharge stable 123/75 and 120/68 08/01/24. [facility] [id number] Telephone encounter Note* Telephone Encounter - Diamond Peoples - 08/03/2024 8:20 AM EDT Pts Lily called. was admitted for brain bleed and released on Tuesday. She is concerned about all of the meds that were paused that are for his heart. Paused meds include: aspirin, carvedilol, losartan, metroprolol, spironolactone New meds included: aporvastatin, levetiracetam Please call her. She is very concerned. [phone] TEOFILO; 06/04/24 NOV: none scheduled [facility] [id number] NoteDischarge Summary Efraín Meredith : 1935 ADMIT DATE: 07/29/2024 DISCHARGE DATE: 08/01/2024 PRIMARY CARE PHYSICIAN: Devon Stokes VISIT STATUS: Admission CODE STATUS: Prior DISCHARGE DIAGNOSES: Principal Problem: Intracranial hemorrhage (HCC) HOSPITAL COURSE: Patient is a 88 y/o male with a PMHx of HTN, HLD, CAD c/b [place] s/p stent, CHF (EF 25% in 2018) s/p ICD, TIA, BPH who initially presented to [place] ED after intermittent LUE numbness x 5 days and slurred speech. He was transferred to T2 ICU for further management. His NIH was 4 and he had stat CT head which showed Subarachnoid hemorrhage within the superior right frontal lobe, just anterior to the central sulcus. Stat CTA head neck showed Known area of posterior left frontal lobe subarachnoid hemorrhage. Patient was started on Nicardipine gtt to maintain SBP less than 140. Per Neuro Critical Care his ICH score was 1 and is Ok to start ASA 81 in 14 days (August 14) and needs OP Neurology followup. Spot EEG showed no abnormal slowing, interictal epileptiform or seizures. Cerebral angiogram showed no aneurysms, vascular malformations or dural AV fistulas were identified as a cause for right cortical subarachnoid hemorrhage. There is no significant intracranial dissection, mild multifocal intracranial atherosclerosis. Endovascular Neuro recommended follow-up in 8 weeks. PT discharge recommendation was home independently. Patient was hemodynamically and clinically stable to be discharged. SIGNIFICANT DIAGNOSTIC STUDIES: IR angiogram cerebral diagnostic Final Result Impression: * No aneurysms, vascular malformations or dural AV fistulas were identified as a cause for right cortical subarachnoid hemorrhage. There is no significant intracranial dissection. * There is a mild multifocal intracranial atherosclerosis. In the correct clinical setting and age group,a vasculopathy like reversible cerebral vasoconstriction syndrome would be angiographically indistinguishable. Report Dictated on Electronically Signed By: Juan Altman Electronically Signed Date/Time: 08/01/2024 11:13 AM EDT MR brain w and wo contrast Final Result 1. Negative for dural venous sinus thrombosis. 2. Stable subarachnoid hemorrhage along the right central sulcus. No other acute intracranial abnormalities. 3. 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 Report Dictated on Electronically Signed By: Sterling Brandt MD Electronically Signed Date/Time: 07/30/2024 4:10 PM EDT MRV HEAD W AND WO IV CONTRAST Final Result 1. Negative for dural venous sinus thrombosis. 2. Stable subarachnoid hemorrhage along the right central sulcus. No other acute intracranial abnormalities. 3. 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 Report Dictated on Electronically Signed By: Sterling Brandt MD Electronically Signed Date/Time: 07/30/2024 4:[address] head wo IV contrast Final Result Stable small volume acute subarachnoid hemorrhage. No new acute findings Report Dictated on Electronically Signed By: Sterling Brandt MD Electronically Signed Date/Time: 07/30/2024 8:04 AM EDT XR chest 1 view Final Result No acute cardiopulmonary process. Report Dictated on Electronically Signed By: Zhou Robert MD Electronically Signed Date/Time: 07/29/2024 9:54 PM EDT XR abdomen 1 view Final Result 1. Increased colonic fecal residue is suggestive of constipation. 2. The patient may proceed with MRI (in regards to this study) Report Dictated on Electronically Signed By: Zhou Robert MD Electronically Signed Date/Time: 07/29/2024 9:[address] head wo IV contrast Final Result Subarachnoid hemorrhage within the superior right frontal lobe, just anterior to the central sulcus. ASPECTS SCORE: 10 No stroke notification was provided. CRITICAL TEST RESULT COMMUNICATION: Notification of these findings was made to Dr. Morton and Dr. Squires via [employer] secure chat on 07/29/2024 6:08 PM EDT. Report Dictated on Electronically Signed By: Zhou Robert MD Electronically Signed Date/Time: 07/29/2024 6:10 PM EDT CTA head neck angio w and wo IV contrast Final Result Impression: 1. Known area of posterior left frontal lobe subarachnoid hemorrhage. 2. The intracranial right vertebral artery is faintly opacified and only a few thin and diminutive portions of the left intracranial vertebral artery are opacified. Only the thin and diminutive distal basilar artery is opacified. Report Dictated on Electronically Signed By: Zhou Robert (more content not included)...[facility]06-18-2025 History of Present illness Narrative* Sylvester Mohan, DO - 08/01/2024 2:40 PM EDT ICU Progress Note Name: Efraín Meredith : 1935(88 y.o.) Date: 08/01/24 Team: MICU Attending: Dr. Morton Subjective: Hospital Summary: 88 year-old with a PMHx of CAD, ICD, prior OH, hyperlipidemia, hypertension who presented to [facility] with several days of left arm and hand numbness along with slurred speech. Imagingdemonstrated small right SAH. Interval Events: No acute overnight events. Upon evaluation, patient stated that he is feeling welland inquired when he might be able to leave the ICU. Denies known trauma, states that he often hitshis head around the house. Seen and examined bedside. Awake, alert, oriented, ambulating without any dizziness, ataxia. No complaints, concerns or questions. Scheduled Meds:Scheduled Meds[1] Continuous Infusions:Continuous Meds[2] Objective: Last Vitals: BP MAP 119/99 (08/01/24 1200) 107 (08/01/24 1200) Arterial BP MAP Temp 36.3 C (97.3 F) (08/01/24 0400) Pulse 72 (08/01/24 1200) Resp 13 (08/01/24 1200) SpO2 99 % (08/01/24 1200) Weight 66.3 kg (146 lb 2.6 oz) (07/31/24 0546) BMI Body mass index is 23.59 kg/m . I/O: 07/31 0700 - 08/01 0659 In: - Out: 250 [Urine:250] Oxygen Delivery: O2 Flow Rate (L/min): 2 L/min Invasive Lines / Tubes / Drains: Peripheral IV 07/29/24 Right Antecubital (Active) Number of days: 2 Peripheral IV 07/30/24 Left;Posterior Hand (Active) Number of days: 1 Central Line Indication: NA - patient does not have a central line Agarwal Indications: NA - patient does not have a Agarwal catheter Restraints: NA - patient is not restrained. Wounds: Constitutional: General Appearance [x]WDWN []Obese []Cachectic []Thin []Ill Eyes: Inspection of Pupils/Irises Pupils round and react: [x]Yes []No Sclera: []Icteric [x]Non-Icteric Inspection of Conjunctiva/Lids Conjunctiva: []Injected [x]Non-Injected Lids: [x]Intact []Lesion Present ENT/Mouth: External Inspection of ears/nose [x] Normal [] Scar/Lesion/Mass Inspection of teeth/lips/gums Dentition: [x][place] Teeth []Dentures Lips/Gums: []Intact []Lesion Present Mucosa: [][place] []Moist []Dry Neck: External Appearance Overall Appearance: [x]Normal []Lesion/Mass/Crepitus Present Trachea midline: [x]Yes []No Thyroid [x]Normal []Enlarged []Tender []Mass []Absent Respiratory: Respiratory effort []Labored [x]Non-Labored [] Mechanically-Ventilated Auscultation [x]Clear []Crackles []Wheezes [][place] Cardiovascular: Auscultation Rate: [x]Regular []Irregular []Tachycardia []Bradycardia Rhythm: [x]Regular []Irregular Murmur: []Present [x]Absent Extremities Peripheral Edema: []Present [x]Absent Varicosities: []Present [x]Absent Gastrointestinal: Abdomen Palpation: [x]Soft []Firm []Tender []Non-Tender []Distended [x]Non-distended Mass: []Present [x]Absent Bowel Sounds: [x]Present []Absent Hernia: []Present []Absent Liver/Spleen: []Hepatosplenomegaly []Organomegaly Absent Musculoskeletal: Inspection of Digits and Nails Cyanosis: []Present [x]Absent Clubbing: []Present [x]Absent Ischemia: []Present [x]Absent Infection: []Present [x]Absent Extremities ORTEZ Equally: Except ([]RUE []RLE []LUE []LLE) Strength/Tone: Intact and Normal ([]RUE []RLE []LUE []LLE) Skin: Inspection [x]Normal []Rash []Lesion []Ulcer Palpation [x]Warm []Cool []Dry []Clammy []Nodules []Induration []Skin-tightening Cap-Refill: [x] <3 sec [] >3 seconds (delayed) Neurologic: GCS EYE: 4 - Opens spontaneously GCS MOTOR: 6 - Obeys commands for movement GCS VERBAL: 5 - Oriented to person, place, time Total GCS: 15 [x] Sensation grossly intact Psych: Mental Status Alert: [x]Yes [] No Oriented: []x0 []X1 []X2 [x]x3 Mood/Affect [x]Normal []Flat []Agitated []Depressed []Anxious []Calm []Sedated []NAD [facility] within last 24 hours- BMP: Recent Labs 07/29/24 1731 07/30/24 02507/31/2434008/01/24 0433 NA -- 138 137 137 K -- 4.1 4.1 4.0 CL -- 111* 110* 108* CO2 -- 19* 18* 21* BUN -- 16 14 16 CREATININE -- 1.00 0.98 0.92 CALCIUM -- 8.8 8.9 9.2 MG 1.9 -- 1.9 2.0 PHOS 3.0 -- 3.1 3.1 LFTs: Recent Labs 07/29/24 1755 07/30/24 0259 07/31/24 03408/01/24 0433 AST -- 25 21 20 ALT -- 32 26 25 PROT -- 6.3* 6.6 7.1 ALBUMIN -- 3.4 3.7 3.8 BILITOT -- 1.1 0.9 0.9 BILIRUBINU Negative -- -- -- ALKPHOS -- 68 74 74 Glucose: Recent Labs 07/30/24 0259 07/31/24 0341 08/01/24 0433 GLUCOSE 105 105 115 Procal: Recent Labs 07/29/24 1731 PROCAL 0.02 CBC: Recent Labs 07/30/2425807/31/24 0544 08/01/24 0433 WBC 9.9 13.1* 11.4* HGB 12.5* 14.2 14.0 HCT 38.1* 43.0 42.1 PLT 189 235 215 MCV 87.4 87.2 86.8 RDW 13.2 13.3 13.3 INR: Recent Labs 07/30/2425807/31/24 0544 08/01/24 0433 INR 1.1 1.1 1.0 Cardiac Injury Profile: No results for input(s): CKTOTAL, CKMB, TROPONINI in the last 72 hours. Labs in Last 3 months: Lab Results Component Value Date INR 1.0 08/01/2024 Imaging- Assessment and Plan: Principal Problem: Intracranial hemorrhage (HCC) Right Intraparenchymal Hemorrhage s/p diaanostic angio 08/01 History of TIA Assessment: -CTA head neck angio showed known area of posterior left frontal lobe subarachnoid hemorrhage -MRV head showed small amount of acute subarachnoid hemorrhage along the right central sulcus, negative for dural venous sinus thrombosis -TTE showed dilated left ventricle, severely reduced left ventricular systolic function, EF of 27%,RVSP is 55 mm Hg -PT recommended discharge to home independently Plan: -nicardipine gtt to maintain SBP less than 140 -neuro critical care following, EEG without any seizures No vascular malformation in the diagnostic angio Followup with endovascular neuro in 8 weeks Hypertension Hyperlipidemia HFrEF s/p ICD Assessment: -TTE showed EF of 27% -most recent blood pressure has been 132/57 Plan: -continue lipitor 20 mg -blood pressure control with nicardipine gtt GI Prophylaxis: Pantoprazole PO DVT Prophylaxis: SCDs Disposition: Remain in ICU Status [1] atorvastatin, 20 mg, Oral, Nightly levETIRAcetam, 500 mg, Oral, BID mupirocin, 1 Application, Nasal, BID pantoprazole, 40 mg, Oral, Nightly Or pantoprazole (ProtoNix) 40 mg in sodium chloride (PF) 0.9 % 10 mL injection, 40 mg, IntraVENous, Nightly sodium chloride 0.9%, 10 mL, IntraVENous, 2 times per day [2] niCARdipine, 2.5-15 mg/hr Cosigned by Donnie Monroe MD at 08/01/2024 3:01 PM EDT Associated attestation - Donnie Monroe MD - 08/01/2024 3:01 PM EDT I have personally performed a face to face diagnostic evaluation on this patient today on 08/01/24.Labs, imaging studies, and electronic medical record notes on [employer] have been reviewed by me. This note documented and discussed by the [x]project control officer []Fellow [] PALLAVI reflects my history, exam and medical decision making. I have reviewed and agree with the care plan. Changes were made in the orders as necessary. ROS documentation was reviewed and negative unless otherwise stated in the HPI. My history, exam, assessment and plan are as follows: All reflect current medical decision making from 08/01/24. Physical Exam listed was completed in entirely on 08/01/24 and is unchanged except where noted. Time spent for coordination of care: a subsequent visit: 50 minutes (Level III) Awake, alert, speech clear, moves all ext C/o left arm numbness, motor strength symmetric to all ext Heart RRR, resp unlabored Right SAH, Left sided numbness HTN, HFrEF 27% Following alongside neuroCC Plan cerebral angiogram today * Vijay Squires MD - 08/01/2024 12:36 PM EDT NEUROCRITICAL CARE PROGRESS NOTE Patient Name: Efraín Meredith Patient : 1935 Acct: [id number] Date of Admission: 07/29/2024 Room/Bed: T2-207/T2-207 A PCP: Devon Stokes Chief Complaint: SAH Interval Events: - Angio negative for vascular malformation - c/o intermittent tingling in LUE, start keppra - Exam stable, walking around the unit prior to angio Current Hospital Medications: Current Medications[1] Continuous Infusions: Continuous Meds[2] Vitals: Patient Vitals for the past 8 hrs: BP Pulse Resp SpO2 08/01/24 1200 119/99 72 13 99 % 08/01/24 1100 123/75 74 19 96 % 08/01/24 1047 120/68 80 17 99 % 08/01/24 1045 -- 75 19 97 % 08/01/24 1042 136/85 75 19 94 % 08/01/24 1040 -- 77 20 97 % 08/01/24 1037 138/92 80 21 96 % 08/01/24 1035 -- 79 17 97 % 08/01/24 1032 (!) 137/122 79 17 -- 08/01/24 1030 -- 75 19 -- 08/01/24 1027 136/81 75 19 95 % 08/01/24 1025 -- 76 17 98 % 08/01/24 1022 137/83 76 18 95 % 08/01/24 1020 -- 75 16 98 % 08/01/24 1017 127/76 70 14 95 % 08/01/24 1015 -- 73 16 97 % 08/01/24 1012 121/81 75 17 95 % 08/01/24 1010 -- 71 15 97 % 08/01/24 1007 123/80 73 18 94 % 08/01/24 1005 -- 73 18 92 % 08/01/24 1002 126/74 72 15 94 % 08/01/24 1000 -- 78 22 96 % 08/01/24 0957 138/74 74 20 97 % 08/01/24 0955 -- 74 20 99 % 08/01/24 0952 134/74 71 16 98 % 08/01/24 0950 -- 73 22 99 % 08/01/24 0947 138/67 75 25 100 % 08/01/24 0945 -- 78 22 99 % 08/01/24 0942 -- 83 17 100 % 08/01/24 0800 125/70 63 19 98 % 08/01/24 0500 123/68 68 25 96 % I/O last 3 completed shifts: In: - (0 mL/kg) Out: 250 (3.8 mL/kg) [Urine:250 (0.1 mL/kg/hr)] Weight: 66.3 kg Physical Examination: General: Well appearing HEENT: Normocephalic and atraumatic. Cardiac: Regular rate Pulm: Breathing comfortably on NC post IR GI/: Nondistended, nontender. Ext: No edema. Skin: No rashes or lesions. Neuro: Aox4. Expressive and receptive language intact. PERRL. EOMI. Midline gaze. VFI. Face symmetric. V1-V3 sensation intact. Palate rise symmetrical. Shoulder shrug intact. Tongue midline. LUE 5/5 LLE 5/5 RUE 5/5 RLE 5/5 Sensation intact to light touch and pinprick No ataxia or dysmetria. No extinction or neglect. Gait deferred in acute setting Results: Recent Results (from the past 24 hours) Basic metabolic panel Collection Time: 08/01/24 4:33 AM Result Value Ref Range SODIUM 137 136 - 145 mmol/L POTASSIUM 4.0 3.5 - 5.1 mmol/L CHLORIDE 108 (H) 98 - 107 mmol/L CARBON DIOXIDE 21 (L) 23 - 31 mmol/L UREA NITROGEN 16 9 - 23 mg/dL CREATININE 0.92 0.72 - 1.25 mg/dL GLUCOSE 115 82 - 115 mg/dL CALCIUM 9.2 8.8 - 10.0 mg/dL ANION GAP 8 3 - 13 mmol/L eGFR 80.0 >60.0 mL/min/1.73m*2 Hepatic function panel Collection Time: 08/01/24 4:33 AM Result Value Ref Range BILIRUBIN, TOTAL 0.9 <1.2 mg/dL BILIRUBIN, DIRECT 0.3 <0.5 mg/dL ALKALINE PHOSPHATASE 74 40 - 150 U/L AST (SGOT) 20 <34 U/L ALT 25 <40 U/L ALBUMIN 3.8 3.4 - 4.8 g/dL TOTAL PROTEIN 7.1 6.4 - 8.3 g/dL CBC auto differential Collection Time: 08/01/24 4:33 AM Result Value Ref Range Auto WBC 11.4 (H) 3.6 - 10.7 10*3/uL RBC 4.85 4.40 - 5.90 10*6/uL Hemoglobin 14.0 13.0 - 18.0 g/dL Hematocrit 42.1 40.0 - 52.0 % MCV 86.8 77.0 - 99.0 fL MCH 28.9 26.0 - 34.0 pg MCHC 33.3 30.5 - 36.0 % RDW 13.3 11.5 - 15.0 % Platelets 215 140 - 440 10*3/uL MPV 11.0 9.0 - 12.7 fL nRBC 0.0 0.0 - 2.0 /100 WBCs Neutrophils Relative 49.5 38.0 - 82.0 % Lymphocytes Relative 40.7 15.0 - 45.0 % Monocytes Relative 6.9 5.0 - 13.0 % Eosinophils Relative 1.9 0.0 - 6.0 % Basophils Relative 0.5 0.0 - 2.0 % Immature Grans % 0.5 0.0 - 2.0 % Neutrophils Absolute 5.6 1.8 - 7.5 10*3/uL Lymphocytes Absolute 4.6 (H) 1.0 - 4.3 10*3/uL Monocytes Absolute 0.8 0.0 - 0.9 10*3/uL Eosinophils Absolute 0.2 0.0 - 0.5 10*3/uL Basophils Absolute 0.1 0.0 - 0.2 10*3/uL Immature Grans Absolute 0.1 (H) <0.1 10*3/uL PROTIME/INR & PTT Collection Time: 08/01/24 4:33 AM Result Value Ref Range PROTHROMBIN TIME 11.1 9.0 - 12.0 s INR 1.0 0.9 - 1.1 APTT 24.4 20.0 - 30.5 s Magnesium Collection Time: 08/01/24 4:33 AM Result Value Ref Range MAGNESIUM 2.0 1.6 - 2.6 mg/dL Phosphorus Collection Time: 08/01/24 4:33 AM Result Value Ref Range PHOSPHORUS 3.1 2.3 - 4.7 mg/dL Calcium, ionized Collection Time: 08/01/24 4:33 AM Result Value Ref Range Calcium, Ion 4.50 4.30 - 5.20 mg/dL PH, IONIZED CALCIUM 7.47 (H) 7.31 - 7.46 Since admission: No results for input(s): CKTOTAL, TROPONINI in the last 72 hours. Recent Labs 08/01/24 0433 ALKPHOS 74 ALT 25 AST 20 BILITOT 0.9 BILIDIR 0.3 @[facility]) ABGs:)No results for input(s): PH, PO2, PCO2, HCO3, O2SAT in the last 72 hours. No lab exists for component: BE Cultures: Blood culture #1: No lab exists for component: BC Blood culture #2: No lab exists for component: BLOODCULT2 Antiepileptic levels: No results for input(s): PHENYTOIN, PHENOBARB, VALPROATE in the last 72 hours. No lab exists for component: CARBTOT, LAMOTRIG, KEPPRA Coagulation: Recent Labs 07/30/24 0259 07/31/24 0544 08/01/24 0433 INR 1.1 1.1 1.0 CSF: No results for input(s): CULTURE, PROTEIN in the last 72 hours. No lab exists for component: CHARCSF, CELL COUNT, GRAM STAIN Lipids: No results for input(s): CHOL, TRIG, HDL, AMYLASE, LIPASE in the last 72 hours. No lab exists for component: LDLCHOLESTEROL HgA1c: No lab exists for component: LABA1C Radiology: Cerebral Angiogram 08/01/24 Impression: * No aneurysms, vascular malformations or dural AV fistulas were identified as a cause for right cortical subarachnoid hemorrhage. There is no significant intracranial dissection. * There is a mild multifocal intracranial atherosclerosis. In the correct clinical setting and age group,a vasculopathy like reversible cerebral vasoconstriction syndrome would be angiographically indistinguishable. Assessment and Plan: R cortical SAH - Etiology: Likely related to HTN. CTA head/neck negative for vascular abnormality. MRV head, MRI Brain without source or findings of CAA. DCA negative. - ICH score: 1 - SBP goal <160 - OK to begin ASA 81 in 14 days (August 14) - Even though rEEG is negative patient complains of fluctuating tingling sensations on LUE. This isconcerning enough that despite a limited duration routine EEG I would cover with AEDs. Can evaluatefurther outpatient and consider wean. Prolonged [place] so no vimpat will do keppra 500mg BID. - Follow up with OP neurology L sided numbness - Due to above - PT/OT HTN - Goals as above HFrEF s/p ICD/CAD s/p stent - TTE with EF 27% Leukocytosis - Mild, afebrile - Monitor Ok for discharge home late this afternoon. NCC to sign off. Vijay Squires MD Neurocritical Care I spent a total of 35 minutes in my independent critical care time for this neurocritically ill patient who is at high risk for both clinical and neurological decline due to further brain injury, which can occur unpredictably and rapidly cause multi-organ dysfunction. In that time I reviewed the chart including MAR, labs, neuroimaging, other imaging studies and discussed my diagnostic impression and patient's plan of care with my PALLAVI/resident/fellow/student, the consulting team and patient's family members/surrogate decision makers (in cases where the patient is incapacitated and unable to participate in their own care). [1] Current Facility-Administered Medications: acetaminophen (Tylenol) tablet 1,000 mg, 1,000 mg, Oral, q6h PRN, Marion A Rosa, IT PORTFOLIO MANAGER - ARCHITECTURAL DESIGNER, 1,000 mg at 07/29/241801 atorvastatin (Lipitor) tablet 20 mg, 20 mg, Oral, Nightly, Marion A Rosa, IT PORTFOLIO MANAGER - ARCHITECTURAL DESIGNER, 20 mg at 07/31/242013 bisacodyl (Dulcolax) suppository 10 mg, 10 mg, Rectal, Daily PRN, Marion A Rosa, IT PORTFOLIO MANAGER - ARCHITECTURAL DESIGNER iopamidol (Isovue-300) 61 % injection 93 mL, 93 mL, Intra-arTERial, Once PRN, Juan Altman MD levETIRAcetam (Keppra) tablet 500 mg, 500 mg, Oral, BID, Vijay Squires MD mupirocin (Bactroban) 2 % ointment 1 Application, 1 Application, Nasal, BID, Marionpanchito Woodardnar, IT PORTFOLIO MANAGER- ARCHITECTURAL DESIGNER, 1 Application at 07/30/242040 niCARdipine (Cardene) infusion 20mg in 0.9 % sodium chloride 200mL (premix), 2.5-15 mg/hr, IntraVENous, Continuous, Marionpanchito Lee, IT PORTFOLIO MANAGER - ARCHITECTURAL DESIGNER ondansetron ODT (Zofran-ODT) disintegrating tablet 4 mg, 4 mg, Oral, q8h PRN OR ondansetron (Zofran) injection 4 mg, 4 mg, IntraVENous, q6h PRN, Marion A Rosa, IT PORTFOLIO MANAGER - ARCHITECTURAL DESIGNER pantoprazole (ProtoNix) EC tablet 40 mg, 40 mg, Oral, Nightly, 40 mg at 07/31/242013 OR pantoprazole (ProtoNix) 40 mg in sodium chloride (PF) 0.9 % 10 mL injection, 40 mg, IntraVENous, Nightly, Marion A Rosa, IT PORTFOLIO MANAGER - ARCHITECTURAL DESIGNER polyethylene glycol (PEG) 3350 (Miralax) packet 17 g, 17 g, Oral, Daily PRN, Marion A Rosa, IT PORTFOLIO MANAGER- ARCHITECTURAL DESIGNER sodium chloride 0.9% (NS) flush 10 mL, 10 mL, IntraVENous, 2 times per day, Marion A Rosa, IT PORTFOLIO MANAGER - ARCHITECTURAL DESIGNER, 10 mL at 07/31/24 1710 sodium chloride 0.9% (NS) flush 10 mL, 10 mL, IntraVENous, PRN, Marion A Rosa, IT PORTFOLIO MANAGER - ARCHITECTURAL DESIGNER sodium chloride 0.9% (NS) flush 10 mL, 10 mL, IntraVENous, PRN, Marion A Rosa, IT PORTFOLIO MANAGER - ARCHITECTURAL DESIGNER [2] niCARdipine, 2.5-15 mg/hr * Monika Farris, IT PORTFOLIO MANAGER - ARCHITECTURAL DESIGNER - 08/01/2024 10:27 AM EDT Endovascular Neurology Note Patient Name:Efraín Meredith Patient : 1935 Acct: [id number] Date of Admission: 07/29/2024 Room/Bed: [facility] A PCP: Devon Stokes Contrast allergy: No HPI: Duy Meredith is a 88 y.o. male presenting to outside hospital with several days of left arm and hand numbness and slurred speech. Imaging obtained during evaluation identified right small right SAH. Nohistory of trauma. New Complaint: VSS. Denies headache. Continues to have left arm numbness Current anticoagulants none Constitutional: Positive for activity change. Neurological: Positive for numbness and headaches. All other systems reviewed and are negative. Neurological Exam Mental Status Oriented to person, place, time and situation. Speech is normal. Language is fluent with no aphasia. Attention and concentration are normal. Cranial Nerves CN II: Visual acuity is normal. Visual bass full to confrontation. CN III, IV, : Extraocular movements intact bilaterally. Normal lids and orbits bilaterally. Pupils equal round and reactive to light bilaterally. CN V: Facial sensation is normal. CN VII: Full and symmetric facial movement. CN VIII: Hearing is normal. CN IX, X: Palate elevates symmetrically. Normal gag reflex. CN XI: Shoulder shrug strength is normal. CN XII: Tongue midline without atrophy or fasciculations. Motor The following abnormal movements were seen: Physical Exam Eyes: General: Lids are normal. Extraocular Movements: Extraocular movements intact. Pupils: Pupils are equal, round, and reactive to light. Cardiovascular: Rate and Rhythm: Regular rhythm. Comments: Pacer Psychiatric: Speech: Speech normal. Current Hospital Medications: Current Medications[1] Continuous Infusions: Continuous Meds[2] Allergies: Patient has no known allergies. Relevant Results FINDINGS: Acute Findings: Small amount of acute subarachnoid hemorrhage along the right central sulcus is unchanged. There is no new acute hemorrhage. Chronic Changes: Scattered patchy foci of white matter hypoattenuation, most likely mild chronic microvascular ischemic changes. Ventricles and sulci: Moderate generalized brain parenchymal volume loss with proportionate ventricular enlargement. Other: The skull, included paranasal sinuses and orbits are normal. IMPRESSION: Stable small volume acute subarachnoid hemorrhage. No new acute findings ASSESSMENT SAH of unclear etiology - no evidence of CAA on MRI PLAN/RECOMMENDATIONS: - resume diet - bedrest with right leg straight for 4 hours - no lifting > 10 pounds for 72 hours - ok to shower 24 hours post angio - no soaking, swimming, sauna for 7 days - follow up with Dr. Altman in 8-10 weeks Patient seen and discussed with Dr. Altman [1] Current Facility-Administered Medications: acetaminophen (Tylenol) tablet 1,000 mg, 1,000 mg, Oral, q6h PRN, YVETTE Hammer CNP, 1,000 mg at 07/29/24 1802 atorvastatin (Lipitor) tablet 20 mg, 20 mg, Oral, Nightly, Marion A Rosa, IT PORTFOLIO MANAGER - ARCHITECTURAL DESIGNER, 20 mg at 07/31/242013 bisacodyl (Dulcolax) suppository 10 mg, 10 mg, Rectal, Daily PRN, Marion A Rosa, IT PORTFOLIO MANAGER - ARCHITECTURAL DESIGNER fentaNYL (Sublimaze) injection, , IntraVENous, PRN, Juan Altman MD, 50 mcg at 08/01/24 0957 lidocaine PF (Xylocaine) 1 % injection, , , PRN, Juan Altman MD, 10 mL at 08/01/24 0958 midazolam (Versed) injection, , IntraVENous, PRN, Juan Altman MD, 1 mg at 08/01/24 09 mupirocin (Bactroban) 2 % ointment 1 Application, 1 Application, Nasal, BID, Marion Lee, IT PORTFOLIO MANAGER- ARCHITECTURAL DESIGNER, 1 Application at 07/30/242040 niCARdipine (Cardene) infusion 20mg in 0.9 % sodium chloride 200mL (premix), 2.5-15 mg/hr, IntraVENous, Continuous, Marion Lee, IT PORTFOLIO MANAGER - ARCHITECTURAL DESIGNER ondansetron ODT (Zofran-ODT) disintegrating tablet 4 mg, 4 mg, Oral, q8h PRN OR ondansetron (Zofran) injection 4 mg, 4 mg, IntraVENous, q6h PRN, Marion A Rosa, IT PORTFOLIO MANAGER - ARCHITECTURAL DESIGNER pantoprazole (ProtoNix) EC tablet 40 mg, 40 mg, Oral, Nightly, 40 mg at 07/31/242013 OR pantoprazole (ProtoNix) 40 mg in sodium chloride (PF) 0.9 % 10 mL injection, 40 mg, IntraVENous, Nightly, Marion A Rosa, IT PORTFOLIO MANAGER - ARCHITECTURAL DESIGNER polyethylene glycol (PEG) 3350 (Miralax) packet 17 g, 17 g, Oral, Daily PRN, Marion A Rosa, IT PORTFOLIO MANAGER- ARCHITECTURAL DESIGNER sodium chloride 0.9% (NS) flush 10 mL, 10 mL, IntraVENous, 2 times per day, Marion A Rosa, IT PORTFOLIO MANAGER - ARCHITECTURAL DESIGNER, 10 mL at 07/31/24 1710 sodium chloride 0.9% (NS) flush 10 mL, 10 mL, IntraVENous, PRN, Marion Lee, IT PORTFOLIO MANAGER - ARCHITECTURAL DESIGNER sodium chloride 0.9% (NS) flush 10 mL, 10 mL, IntraVENous, PRN, Marion Lee, IT PORTFOLIO MANAGER - ARCHITECTURAL DESIGNER [2] niCARdipine, 2.5-15 mg/hr * YVETTE Douglass CNP - 07/31/2024 10:19 AM EDT Endovascular Neurology Note Patient Name:Efraín Meredith Patient : 1935 Acct: [id number] Date of Admission: 07/29/2024 [facility]: [facility] A PCP: Devon Stokes Contrast allergy: No HPI: Duy Meredith is a 88 y.o. male presenting to outside hospital with several days of left arm and hand numbness and slurred speech. Imaging obtained during evaluation identified right small right SAH. Nohistory of trauma. New Complaint: VSS. Denies headache Current anticoagulants none Constitutional: Positive for activity change. Neurological: Positive for numbness and headaches. All other systems reviewed and are negative. Neurological Exam Mental Status Oriented to person, place, time and situation. Speech is normal. Language is fluent with no aphasia. Attention and concentration are normal. Cranial Nerves CN II: Visual acuity is normal. Visual bass full to confrontation. CN III, IV, : Extraocular movements intact bilaterally. Normal lids and orbits bilaterally. Pupils equal round and reactive to light bilaterally. CN V: Facial sensation is normal. CN VII: Full and symmetric facial movement. CN VIII: Hearing is normal. CN IX, X: Palate elevates symmetrically. Normal gag reflex. CN XI: Shoulder shrug strength is normal. CN XII: Tongue midline without atrophy or fasciculations. Motor The following abnormal movements were seen: Physical Exam Eyes: General: Lids are normal. Extraocular Movements: Extraocular movements intact. Pupils: Pupils are equal, round, and reactive to light. Cardiovascular: Rate and Rhythm: Regular rhythm. Comments: Pacer Psychiatric: Speech: Speech normal. Current Hospital Medications: Current Medications[1] Continuous Infusions: Continuous Meds[2] Allergies: Patient has no known allergies. Relevant Results FINDINGS: Acute Findings: Small amount of acute subarachnoid hemorrhage along the right central sulcus is unchanged. There is no new acute hemorrhage. Chronic Changes: Scattered patchy foci of white matter hypoattenuation, most likely mild chronic microvascular ischemic changes. Ventricles and sulci: Moderate generalized brain parenchymal volume loss with proportionate ventricular enlargement. Other: The skull, included paranasal sinuses and orbits are normal. IMPRESSION: Stable small volume acute subarachnoid hemorrhage. No new acute findings ASSESSMENT SAH of unclear etiology - no evidence of CAA on MRI PLAN/RECOMMENDATIONS: - plan for diagnostic cerebral angiogram tomorrow - NPO after midnight, ok for meds with sips - further recommendations pending imaging Patient seen and discussed with Dr. Altman [1] Current Facility-Administered Medications: acetaminophen (Tylenol) tablet 1,000 mg, 1,000 mg, Oral, q6h PRN, YVETTE Hammer CNP, 1,000 mg at 07/29/241801 atorvastatin (Lipitor) tablet 20 mg, 20 mg, Oral, Nightly, Marion Lee APRN - RIMA, 20 mg at 07/30/242039 bisacodyl (Dulcolax) suppository 10 mg, 10 mg, Rectal, Daily PRN, Marion Lee APRN - RIMA mupirocin (Bactroban) 2 % ointment 1 Application, 1 Application, Nasal, BID, ELISABET Hammer CNP, 1 Application at 07/30/242040 niCARdipine (Cardene) infusion 20mg in 0.9 % sodium chloride 200mL (premix), 2.5-15 mg/hr, IntraVENous, Continuous, Marion Lee APRN - RIMA ondansetron ODT (Zofran-ODT) disintegrating tablet 4 mg, 4 mg, Oral, q8h PRN OR ondansetron (Zofran) injection 4 mg, 4 mg, IntraVENous, q6h PRN, Marion A Rosa, IT PORTFOLIO MANAGER - ARCHITECTURAL DESIGNER pantoprazole (ProtoNix) EC tablet 40 mg, 40 mg, Oral, Nightly, 40 mg at 07/30/242039 OR pantoprazole (ProtoNix) 40 mg in sodium chloride (PF) 0.9 % 10 mL injection, 40 mg, IntraVENous, Nightly, Marion A Rosa, IT PORTFOLIO MANAGER - ARCHITECTURAL DESIGNER polyethylene glycol (PEG) 3350 (Miralax) packet 17 g, 17 g, Oral, Daily PRN, Marion A Rosa, IT PORTFOLIO MANAGER- ARCHITECTURAL DESIGNER sodium chloride 0.9% (NS) flush 10 mL, 10 mL, IntraVENous, 2 times per day, Marion A Rosa, IT PORTFOLIO MANAGER - ARCHITECTURAL DESIGNER, 10 mL at 07/30/24 0746 sodium chloride 0.9% (NS) flush 10 mL, 10 mL, IntraVENous, PRN, Marion A Rosa, IT PORTFOLIO MANAGER - ARCHITECTURAL DESIGNER sodium chloride 0.9% (NS) flush 10 mL, 10 mL, IntraVENous, PRN, Marion A Rosa, IT PORTFOLIO MANAGER - ARCHITECTURAL DESIGNER [2] niCARdipine, 2.5-15 mg/hr * Radu Arrington APRN - ARCHITECTURAL DESIGNER - 07/31/2024 7:42 AM EDT PROGRESS NOTE: NEUROCRITICAL CARE Patient Name:Efraín Meredith Patient : 1935 Chief complaint: LUE numbness, dysarthria Hospital Summary: 88M HTN, HLD, CAD s/p stent, HFrEF (25%), s/p ICD, TIA who presented to [facility] from [facility] on 07/29 with LUE numbness, weakness (intermittent) x5 days as well as slurred speech. CT head with R cortical SAH. CTA head/neck without vascular abnormality. Interval History: Afebrile. SBP 120-130's. Medications: Scheduled Meds: Scheduled Meds[1] PRN Meds: PRN Meds[2] Allergies: Patient has no known allergies. Review of Systems Mild headache that has since resolved. Physical Examination: Patient Vitals for the past 8 hrs: BP Temp Temp src Pulse Resp SpO2 Weight 07/31/24 0700 122/83 -- -- 74 25 96 % -- 07/31/24 0600 119/67 -- -- 72 15 95 % -- 07/31/24 0546 -- -- -- -- -- -- 66.3 kg (146 lb 2.6 oz) 07/31/24 0500 132/57 -- -- 75 22 99 % -- 07/31/24 0400 121/68 36.4 C (97.5 F) Temporal 73 16 96 % -- 07/31/24 0300 126/84 -- -- 72 20 95 % -- 07/31/24 0200 130/57 -- -- 70 14 95 % -- 07/31/24 0100 107/66 -- -- 68 22 96 % -- 07/31/24 0000 122/61 36.4 C (97.5 F) Temporal 71 23 94 % -- I/O last 3 completed shifts: In: 1350.2 (20.4 mL/kg) [P.O.:500; I.V.:850.2 (12.8 mL/kg)] Out: 2375 (35.8 mL/kg) [Urine:2375 (1 mL/kg/hr)] Weight: 66.3 kg General Physical Examination: General: Awake HEENT:Normocephalic, atraumatic CV: S1+S2, RRR, no MRG. Pulm:CTA b/l, unlabored Abdomen: Soft NT/ND. BS + Skin: Intact without ulcers, breakdowns or discoloration Extremities: normal with no edema or cyanosis Orthopedic limitation; No Pulses: Intact peripherally Carotid auscultation :No bruits Neurological Examination: Higher Functions: Mental Status Exam: Level of Alertness:Awake Orientation: Normal to self, time, place Memory: Normal Fund of Knowledge: Normal Language: Normal Dysarthria not present Cranial Nerves: -II Visual acuity: normal -II Visual bass: normal -III Pupils (~ 3 mm OD, 3 mm OU) equal, round, reactive to light -III-IV- Extraocular Movements: intact -Nystagmus not present -Saccades and pursuits normal -V Facial sensation: intact Corneal's Intact bilateral -VII Facial strength: intact -VIII Hearing: intact -IX-X- Gag reflex present -X Palate:intact -XI Shoulder shrug: intact -XII Tongue movement: normal Motor Examination: Tone after evaluation of 4 limbs, the following findings applied: Normal -Bulk: normal -Muscle Stretchafter evaluation of all limbs, and axial musculature the following findings applied: Drift: absent -Reflexes: after evaluation of 4 limbs, the following findings applied ; normal all limbs -Plantar responce: Flexor bilaterally Sensory Intact to light touch, pain / temperature, proprioception, Coordination: Arms Normal finger to nose Legs Intact heel knee tena testing Tremors not present Gait abnormal, patient unable to walk due to acute circumstances / bedrest / safety concerns NIHSS 0 ANCILLARY Cardiac testing: EKG: Sinus rhythm Inferior infarct, old Abnormal lateral Q waves Probable anterior infarct, age indeterminate TTE 07/29/24: Left Ventricle: Left ventricle is moderately dilated. Normal wall thickness. Severely reduced left ventricular systolic function. EF by 2D Simpsons Biplane is 27%, which may be a bit of an overestimate. Regardless, function is severely impaired. See diagram for wall motion findings. Grade III diastolic dysfunction with increased LAP. Right Ventricle: Right ventricle size is normal. ICD lead present in the right ventricle. Normal systolic function. Mitral Valve: Mildly thickened leaflets. Annular calcification. At least moderate (2+) regurgitation with a centrally directed jet. Systolic blunting of the pulmonary veins. Moderate apical tetheringof both leaflets. Tricuspid Valve: Valve structure is normal. Mild to moderate (1-2+) regurgitation. Moderately elevated RVSP. RVSP is 56 mmHg. Radiology/imaging personal review: CT Head 07/29/24: Subarachnoid hemorrhage within the superior right frontal lobe, just anterior to the central sulcus. CT Head 07/30/24: Stable small volume acute subarachnoid hemorrhage. No new acute findings CTA head/neck 07/29/24: The intracranial right vertebral artery is faintly opacified and only a few thin and diminutive portions of the left intracranial vertebral artery are opacified. Only the thin and diminutive distal basilar artery is opacified. MRI Brain/MRV head 07/30/24: 1. Negative for dural venous sinus thrombosis. 2. Stable subarachnoid hemorrhage along the right central sulcus. No other acute intracranial abnormalities. 3. 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 ASSESSMENT / PLAN/RECOMMENDATIONS: R cortical SAH - Etiology: Ongoing work-up. ?Related to HTN. CTA head/neck negative for vascular abnormality. MRV head, MRI Brain without source or findings of CAA - ICH score: 1 - SBP goal <140 - Endovascular consulted for DSA - Spot EEG pending - OK for DVT prophylaxis after DSA - OK to begin ASA 81 in 14 days (August 14) - Follow up with OP neurology L sided numbness - Due to above - PT/OT HTN - Goals as above HFrEF s/p ICD/CAD s/p stent - TTE with EF 27% Leukocytosis - Mild, afebrile - Monitor Will follow results of DSA. If no vascular abnormality/intervention pt can likely be discharged to the floor later. I spent a total of 30 minutes of independent critical care time for this neurocritically ill patient who is at high risk for both clinical and neurological decline due to further brain injury, which can occur unpredictably and rapidly cause multi-organ dysfunction. In that time I reviewed the chart including MAR, labs, neuroimaging, other imaging studies and discussed my diagnostic impression andpatient's plan of care with the consulting team and patient's family members/surrogate decision makers (in cases where the patient is incapacitated and unable to participate in their own care). An additional 5 minutes was spent discussing assessment/plan with Dr. Faulkner. [1] atorvastatin, 20 mg, Oral, Nightly mupirocin, 1 Application, Nasal, BID pantoprazole, 40 mg, Oral, Nightly Or pantoprazole (ProtoNix) 40 mg in sodium chloride (PF) 0.9 % 10 mL injection, 40 mg, IntraVENous, Nightly sodium chloride 0.9%, 10 mL, IntraVENous, 2 times per day [2] PRN medications: acetaminophen, bisacodyl, ondansetron ODT OR ondansetron, polyethylene glycol (PEG) 3350, sodium chloride 0.9%, sodium chloride 0.9% * Arslan Kim MD - 07/31/2024 5:12 AM EDT ICU Progress Note Name: Efraín Meredith DOB: 1935(88 y.o.) Date: 07/31/24 Team: MICU Attending: Dr. Morton Subjective: Hospital Summary: 88 year-old with a PMHx of CAD, ICD, prior OH, hyperlipidemia, hypertension who presented to [facility] with several days of left arm and hand numbness along with slurred speech. Imagingdemonstrated small right SAH. Interval Events: No acute overnight events. Upon evaluation, patient stated that he is feeling welland inquired when he might be able to leave the ICU. Denies known trauma, states that he often hitshis head around the house. Scheduled Meds:Scheduled Meds[1] Continuous Infusions:Continuous Meds[2] Objective: Last Vitals: BP MAP 132/57 (07/31/24 0500) 79 (07/31/24 0500) Arterial BP MAP Temp 36.4 C (97.5 F) (07/31/24 0400) Pulse 75 (07/31/24 0500) Resp 22 (07/31/24 0500) SpO2 99 % (07/31/24 0500) Weight 68 kg (150 lb) (07/30/24 1008) BMI Body mass index is 24.21 kg/m . I/O: 07/30 0700 - 07/31 0659 In: 500 [P.O.:500] Out: 1025 [Urine:1025] Ventilator: Oxygen Delivery: Invasive Lines / Tubes / Drains: Peripheral IV 07/29/24 Right Antecubital (Active) Number of days: 2 Peripheral IV 07/30/24 Left;Posterior Hand (Active) Number of days: 1 Central Line Indication: NA - patient does not have a central line Agarwal Indications: NA - patient does not have a Agarwal catheter Restraints: NA - patient is not restrained. Wounds: Constitutional: General Appearance [x]WDWN []Obese []Cachectic []Thin []Ill Eyes: Inspection of Pupils/Irises Pupils round and react: [x]Yes []No Sclera: []Icteric [x]Non-Icteric Inspection of Conjunctiva/Lids Conjunctiva: []Injected [x]Non-Injected Lids: [x]Intact []Lesion Present ENT/Mouth: External Inspection of ears/nose [x] Normal [] Scar/Lesion/Mass Inspection of teeth/lips/gums Dentition: [x][place] Teeth []Dentures Lips/Gums: []Intact []Lesion Present Mucosa: [][place] []Moist []Dry Neck: External Appearance Overall Appearance: [x]Normal []Lesion/Mass/Crepitus Present Trachea midline: [x]Yes []No Thyroid [x]Normal []Enlarged []Tender []Mass []Absent Respiratory: Respiratory effort []Labored [x]Non-Labored [] Mechanically-Ventilated Auscultation [x]Clear []Crackles []Wheezes []Rhonchi Cardiovascular: Auscultation Rate: [x]Regular []Irregular []Tachycardia []Bradycardia Rhythm: [x]Regular []Irregular Murmur: []Present [x]Absent Extremities Peripheral Edema: []Present [x]Absent Varicosities: []Present [x]Absent Gastrointestinal: Abdomen Palpation: [x]Soft []Firm []Tender []Non-Tender []Distended [x]Non-distended Mass: []Present [x]Absent Bowel Sounds: [x]Present []Absent Hernia: []Present []Absent Liver/Spleen: []Hepatosplenomegaly []Organomegaly Absent Musculoskeletal: Inspection of Digits and Nails Cyanosis: []Present [x]Absent Clubbing: []Present [x]Absent Ischemia: []Present [x]Absent Infection: []Present [x]Absent Extremities ORTEZ Equally: Except ([]RUE []RLE []LUE []LLE) Strength/Tone: Intact and Normal ([]RUE []RLE []LUE []LLE) Skin: Inspection [x]Normal []Rash []Lesion []Ulcer Palpation [x]Warm []Cool []Dry []Clammy []Nodules []Induration []Skin-tightening Cap-Refill: [x] <3 sec [] >3 seconds (delayed) Neurologic: GCS EYE: 4 - Opens spontaneously GCS MOTOR: 6 - Obeys commands for movement GCS VERBAL: 5 - Oriented to person, place, time Total GCS: 15 [x] Sensation grossly intact Psych: Mental Status Alert: [x]Yes [] No Oriented: []x0 []X1 []X2 [x]x3 Mood/Affect [x]Normal []Flat []Agitated []Depressed []Anxious []Calm []Sedated []NAD [facility] Labs within last 24 hours- BMP: Recent Labs 07/29/24173007/30/2425807/31/24340 NA -- 138 137 K -- 4.1 4.1 CL -- 111* 110* CO2 -- 19* 18* BUN -- 16 14 CREATININE -- 1.00 0.98 CALCIUM -- 8.8 8.9 MG 1.9 -- 1.9 PHOS 3.0 -- 3.1 LFTs: Recent Labs 07/29/24175407/30/2425807/31/24 034 AST -- 25 21 ALT -- 32 26 PROT -- 6.3* 6.6 ALBUMIN -- 3.4 3.7 BILITOT -- 1.1 0.9 BILIRUBINU Negative -- -- ALKPHOS -- 68 74 Glucose: Recent Labs 07/30/2425807/31/24 034 GLUCOSE 105 105 Procal: Recent Labs 07/29/241730 PROCAL 0.02 CBC: Recent Labs 07/30/24258 WBC 9.9 HGB 12.5* HCT 38.1* PLT 189 MCV 87.4 RDW 13.2 ABGs: No results for input(s): PHART, NZP5OHW, PO2ART, OED0WFF, SO2ART, J0PGZVGT in thelast 72 hours. Lactic Acid: No results for input(s): LACTATE in the last 72 hours. INR: Recent Labs 07/30/24258 INR 1.1 Cardiac Injury Profile: No results for input(s): CKTOTAL, CKMB, TROPONINI in the last 72 hours. Labs in Last 3 months: Lab Results Component Value Date INR 1.1 07/30/2024 Microbiology- Urine Cx: No results found for: URINECX Blood Cx: No results found for: BLOODCX Sputum Cx: No results found for: RESPCULT Gram Stain: No results found for: LABGRAM PNA PCR: No results found for: HUMANMETAPNE COVID19: No results found for: COVID19 Legionella Ag: No results found for: LEGIONELLAPN Strep Ag: No results for input(s): STREPPNEUMO in the last 72 hours. Imaging- Assessment and Plan: Principal Problem: Intracranial hemorrhage (HCC) Right Intraparenchymal Hemorrhage History of TIA Assessment: -CTA head neck angio showed known area of posterior left frontal lobe subarachnoid hemorrhage -MRV head showed small amount of acute subarachnoid hemorrhage along the right central sulcus, negative for dural venous sinus thrombosis -TTE showed dilated left ventricle, severely reduced left ventricular systolic function, EF of 27%,RVSP is 55 mm Hg -PT recommended discharge to home independently Plan: -nicardipine gtt to maintain SBP less than 140 -neuro critical care following, EEG ordered -aspiration precautions -seizure precautions -OT consulted Hypertension Hyperlipidemia HFrEF s/p ICD Assessment: -TTE showed EF of 27% -most recent blood pressure has been 132/57 Plan: -continue lipitor 20 mg -blood pressure control with nicardipine gtt GI Prophylaxis: Pantoprazole PO DVT Prophylaxis: SCDs Disposition: Remain in ICU Status Critical Care Time: Total critical care time caring for this patient with life threatening, unstable organ failure, including direct patient contact, management of life support systems, review of data including imaging and labs, discussions with other team members and physicians, excluding procedures. [1] atorvastatin, 20 mg, Oral, Nightly mupirocin, 1 Application, Nasal, BID pantoprazole, 40 mg, Oral, Nightly Or pantoprazole (ProtoNix) 40 mg in sodium chloride (PF) 0.9 % 10 mL injection, 40 mg, IntraVENous, Nightly sodium chloride 0.9%, 10 mL, IntraVENous, 2 times per day [2] niCARdipine, 2.5-15 mg/hr Cosigned by Heather Morton DO at 07/31/2024 5:24 PM EDT Associated attestation - Heather Morton DO - 07/31/2024 5:24 PM EDT I reviewed the history, the documented findings, and performed a physical exam of the patient. I agree with Dr. Kim's assessment, and we discussed the management of the patient. See orders. Patient continues to do reasonably well without any new focal deficits. He does have a small subarachnoid hemorrhage. He is tentatively scheduled to undergo diagnostic cerebral arteriogram tomorrow. He will be made n.p.o. after midnight okay for meds. Appreciate input from neurocritical care. Will watch closely in the ICU. * Rhoda Garber RD - 07/30/2024 2:32 PM EDT Pt is on a regular, MAXWELL diet with good p.o intake. No nutritional concerns identified. Sign off to lead quality technician. Rhoda Garber RD,LD,CNSC * Darvin Lange - 07/30/2024 2:22 PM EDT Images from the original note were not included. PHYSICAL THERAPY [facility] Initial Evaluation Name/MRN: Duy Meredith ([id number]) Evaluation Date: 07/30/2024 Date of : 1935 Admission Date: 07/29/2024 3:49 PM Age: 88 y.o. Room/Bed: T2-207/T2-207 A Discharge Recommendation: Home independently Assessment IMPRESSION: pt is an 88 y/o male who was admitted to [facility] for intracranial hemorrhage. Came to ED for slurred speech and LUE numbness lasting 5 days. Pt was previously independent and did not use assistive device. He was independent for bed mobility, transfers, and ambulation. Recommend home independently at discharge. Admitting Diagnosis: intracranial hemorrhage Prognosis: good Performance Deficits /Impairments: Decreased Functional Mobility, Decreased Endurance, Decreased Balance, and Decreased ROM Decision Making: Medium Complexity Subjective Pt in bed and consented to PT. RN cleared pt for PT. Two family members in room. Pain: Pt denies any current pain. Past Medical History: Medical History[1] Past Surgical History: Surgical History[2] Admission Diagnosis: Patient Active Problem List Diagnosis Date Noted Intracranial hemorrhage (HCC) 07/29/2024 Automatic implantable cardioverter-defibrillator in situ 11/09/2021 LV dysfunction 05/26/2016 CAD (coronary artery disease) 05/26/2016 ICD (implantable cardioverter-defibrillator), single, in situ 05/26/2016 Old OH (myocardial infarction) 05/26/2016 Presence of stent in LAD coronary artery 05/26/2016 Hyperlipidemia 05/26/2016 Medical Precautions: No active isolations Proper PPE donned/doffed in accordance with facility standards. Fall Risk: [place] Fall Risk Score: 60 (High Risk) Precautions/Restrictions: Fall Precautions Family/Caregiver Present: spouse Overall Cognitive Status: Exceptions - Arousal/alertness: appropriate responses to stimuli - Following commands: follows all commands without difficulty - Safety judgement: good awareness of safety precautions Overall Orientation Status: Oriented to Person Vision: Not Assessed Hearing: normal Social/Functional History Patient admitted from home. Lives With: Spouse Type of Home: Home Layout: Two Level Home - stays on first floor Home Access: Bathroom Shower/Tub: Toilet: Standard Home Equipment: none Homemaking Responsibilities: Independent Receives Help From: None Active Rehab Office Coordinator: Prior Level of Function Prior Level of ADL Function: Independent Prior Level of Mobility: Independent; Device: None Prior Level of Transfers: Independent Objective Lower Extremity Assessment AROM: WFL PROM: WFL Strength: Lower Extremity Strength Right Left Hip Flexion 5 5 Knee Extension 5 5 Knee Flexion 5 5 Ankle Dorsiflexion (DF) 5 5 Ankle Plantarflexion (PF) 5 5 Sensation: Not assessed this session Balance: Balance During Session: Posture: good Sitting - Static: Independent Sitting - Dynamic: Independent Standing - Static: Independent Standing - Dynamic: Independent Bed Mobility: Supine to sit: Independent Sit to supine: Independent Transfers Sit to stand: Independent Stand to sit: Independent Ambulation Ambulation 1 Assistive device(s) used: None Assist level: Independent Distance (ft): 400 Quality of gait: shuffling, slow leanne Outcome Measures AM-PAC How much HELP from another person do you currently need Turning from your back to your side while in a flat bed without using bedrails?: None Moving from lying on your back to sitting on the side of a flat bed without using bedrails?: None Moving to and from a bed to a chair (including a wheelchair)?: None Standing up from a chair using your arms (wheelchair or bedside chair)?: None Walking in a hospital room?: None Stair climbing assessed?: No AM-PAC Inpatient Mobility Raw Score (No Stairs) : 20 JH-HLM JH-HLM Score: Walked 250 ft or more (i.e. several laps on unit) Plan No skilled acute PT indicated at this time. Please reconsult should changes occur. Safety/Education Safety Safety Devices in place: All fall risk precautions in place, call light within reach, left in bed, and gait belt Restraints: No Education Education Given To: patient Education Provided: PT Role, PT Goals, Plan of Care, and Discharge Recommendations Education Method: Verbal Barriers to Learning: Education Outcome: Goals Patient Stated Goal: To go home Therapy Time Individual Co-Treatment Co-Evaluation Time In 0150 Time Out 0218 Minutes 28 RONNELL Diaz Patient's Physical Therapy Plan of Care supervision is transferred to a [facility] Services Physical Therapist. Goals and/or treatment plan was established in collaboration with patient/family/other representatives. [1] Past Medical History: Diagnosis Date CAD (coronary artery disease) Hyperlipidemia ICD (implantable cardioverter-defibrillator), single, in situ 12/29/2011 LV dysfunction Old OH (myocardial infarction) 2011 Anterior Presence of stent in LAD coronary artery 07/05/02 : AYLIN to LAD, 10/18/11: AYLIN to ISS LAD [2] Past Surgical History: Procedure Laterality Date CARDIAC DEFIBRILLATOR PLACEMENT CARDIAC PROCEDURE CORONARY ANGIOPLASTY Cosigned by Yelena Loja PT at 07/30/2024 2:30 PM EDT * Sylvester Mohan, - 07/30/2024 11:59 AM EDT ICU Progress Note Name: Efraín Meredith : 1935(88 y.o.) Date: 07/30/24 Team: MICU Attending: Dr. Morton Subjective: Hospital Summary: Duy Meredith is a 88 y.o. male presenting to outside hospital with several days of left arm and hand numbness and slurred speech. Imaging obtained during evaluation identified right small right SAH. Nohistory of trauma. past medical history of CAD (coronary artery disease), Hyperlipidemia, ICD (implantable cardioverter-defibrillator), single, in situ (12/29/2011), LV dysfunction, Old OH (myocardial infarction) (2011), and Presence of stent in LAD coronary artery. past surgical history that includes Cardiac defibrillator placement; Cardiac procedure; and Coronary angioplasty. Interval Events: Seen and examined bedside. Awake, alert, following commands. Pleasant. No acute distress. Scheduled Meds:Scheduled Meds[1] Continuous Infusions:Continuous Meds[2] Objective: Last Vitals: BP MAP 127/66 (07/30/24 1100) 85 (07/30/24 1100) Arterial BP MAP Temp 36.6 C (97.8 F) (07/30/24 0746) Pulse 70 (07/30/24 1100) Resp 20 (07/30/24 1100) SpO2 99 % (07/30/24 1100) Weight 68 kg (150 lb) (07/30/24 1008) BMI Body mass index is 24.21 kg/m . I/O: 07/29 0700 - 07/30 0659 In: 850.2 [I.V.:850.2] Out: 1650 [Urine:1650] Invasive Lines / Tubes / Drains: Peripheral IV 07/29/24 Right Antecubital (Active) Number of days: 1 Peripheral IV 07/30/24 Left;Posterior Hand (Active) Number of days: 0 Constitutional: General Appearance [x]WDWN []Obese []Cachectic []Thin []Ill Eyes: Inspection of Pupils/Irises Pupils round and react: [x]Yes []No Sclera: []Icteric [x]Non-Icteric Inspection of Conjunctiva/Lids Conjunctiva: []Injected [x]Non-Injected Lids: [x]Intact []Lesion Present ENT/Mouth: External Inspection of ears/nose [x] Normal [] Scar/Lesion/Mass Inspection of teeth/lips/gums Dentition: [x][place] Teeth []Dentures Lips/Gums: [x]Intact []Lesion Present Mucosa: [x][place] []Moist []Dry Neck: External Appearance Overall Appearance: [x]Normal []Lesion/Mass/Crepitus Present Trachea midline: [x]Yes []No Thyroid [x]Normal []Enlarged []Tender []Mass []Absent Respiratory: Respiratory effort []Labored [x]Non-Labored [] Mechanically-Ventilated Auscultation [x]Clear []Crackles []Wheezes []Rhonchi Cardiovascular: Auscultation Rate: [x]Regular []Irregular []Tachycardia []Bradycardia Rhythm: [x]Regular []Irregular Murmur: []Present [x]Absent Extremities Peripheral Edema: []Present [x]Absent Varicosities: []Present [x]Absent Gastrointestinal: Abdomen Palpation: [x]Soft []Firm []Tender []Non-Tender []Distended []Non-distended Mass: []Present [x]Absent Bowel Sounds: []Present [x]Absent Hernia: []Present [x]Absent Liver/Spleen: []Hepatosplenomegaly [x]Organomegaly Absent Musculoskeletal: Inspection of Digits and Nails Cyanosis: []Present [x]Absent Clubbing: []Present [x]Absent Ischemia: []Present [x]Absent Infection: []Present [x]Absent Extremities ORTEZ Equally Strength/Tone Skin: Inspection [x]Normal []Rash []Lesion []Ulcer Palpation [x]Warm []Cool []Dry []Clammy []Nodules []Induration []Skin-tightening Cap-Refill: [] <3 sec [] >3 seconds (delayed) Neurologic: GCS EYE: 4 - Opens spontaneously GCS MOTOR: 6 - Obeys commands for movement GCS VERBAL: 5 - Oriented to person, place, time Total GCS: 15 [] Sensation grossly intact Psych: Mental Status Alert: [x]Yes [] No Oriented: []x0 []X1 []X2 [x]x3 Mood/Affect [x]Normal []Flat []Agitated []Depressed []Anxious []Calm []Sedated []NAD [facility] within last 24 hours- BMP: Recent Labs 07/29/24 1731 07/30/24 0259 NA -- 138 K -- 4.1 CL -- 111* CO2 -- 19* BUN -- 16 CREATININE -- 1.00 CALCIUM -- 8.8 MG 1.9 -- PHOS 3.0 -- LFTs: Recent Labs 07/29/24 1755 07/30/24 0259 AST -- 25 ALT -- 32 PROT -- 6.3* ALBUMIN -- 3.4 BILITOT -- 1.1 BILIRUBINU Negative -- ALKPHOS -- 68 Glucose: Recent Labs 07/30/24 0259 GLUCOSE 105 Procal: Recent Labs 07/29/24 1731 PROCAL 0.02 CBC: Recent Labs 07/30/24 0259 WBC 9.9 HGB 12.5* HCT 38.1* PLT 189 MCV 87.4 RDW 13.2 INR: Recent Labs 07/30/24 0259 INR 1.1 Cardiac Injury Profile: No results for input(s): CKTOTAL, CKMB, TROPONINI in the last 72 hours. Labs in Last 3 months: Lab Results Component Value Date INR 1.1 07/30/2024 Assessment and Plan: Principal Problem: Intracranial hemorrhage (HCC) R intraparenchymal hemorrhage Hx of TIA R intraparenchymal hemorrhage in postcentral gyrus CTA head/neck showed no LVO or aneurysm Repeat CT head 07/30 stable, no acute findings -MRI/MRV ordered - CXR and KUB ordered for clearance -TTE ordered - pending -SBP goal <140 - cardene gtt -NS gtt at 75cc/hr -APAP PRN -seizure and aspiration precautions -NCC following PT/OT Hypertension Hyperlipidemia CAD, OH s/p stents CHF (EF 25%) s/p ICD spironolactone 12.5mg daily coreg 6.25mg BID losartan 50mg daily at home hold PO antihypertensives and use cardene gtt for SBP goal <140 takes ASA 81mg at home - hold d/t bleed takes nitroglycerin SL PRN at home - hold in setting of ICH takes simvastatin 40mg at bedtime - nonformulary start atorvastatin 20mg daily TTE 06/01/2017 showed EF 25%, mod decreased LVSF 2+ TR TTE ordered Hx of BPH -on finasteride 5mg daily and tamsulosin 0.4mg daily at home - will hold for continued hemodynamic monitoring GOC -full code - confirmed that patient would be okay with a intubation, CPR, and defibrillation. Stated that he would trust his to make decisions for him during a crisis situation. Patient stated that it was hard to make a decision because he is not in a critical situation at this time. Explainedthat this was in the event that a critical situation happened and he was unable to tell us. Theodora expressed that he would trust his to make decisions. -NOK Lily -palliative care consulted as patient and have questions about GOC even though patient has living will GI Prophylaxis: Pantoprazole PO DVT Prophylaxis: SCDs BMI Classification: There is no height or weight on file to calculate BMI. normal BMI 18.5-24.9 Disposition: ICU [1] atorvastatin, 20 mg, Oral, Nightly mupirocin, 1 Application, Nasal, BID pantoprazole, 40 mg, Oral, Nightly Or pantoprazole (ProtoNix) 40 mg in sodium chloride (PF) 0.9 % 10 mL injection, 40 mg, IntraVENous, Nightly sodium chloride 0.9%, 10 mL, IntraVENous, 2 times per day [2] niCARdipine, 2.5-15 mg/hr sodium chloride, 75 mL/hr, Last Rate: 75 mL/hr (07/29/24 1745) Cosigned by Heather Morton DO at 07/30/2024 12:21 PM EDT Associated attestation - Heather Morton DO - 07/30/2024 12:21 PM EDT I reviewed the history, the documented findings, and performed a physical exam of the patient. I agree with Dr. Mohan's assessment, and we discussed the management of the patient. See orders.BP managed with cardene. stable. No new deficits noted.Await MRI/MRV. Monitor in ICU today. * PAMELA Rios - 07/30/2024 7:01 AM EDT Speech-Language Pathology Patient passed the Nursing Swallowing Screening. As per stroke policy, no formal dysphagia evaluation is required. Completed speech orders. * Darvin Lange - 07/30/2024 6:44 AM EDT Images from the original note were not included. PHYSICAL THERAPY [facility] Name/MRN: Duy Meredith ([id number]) Date: 07/30/2024 Received orders for PT eval and treat. Pt currently on bedrest. Will hold until activity level is increased. Darvin Lange, SPT Cosigned by Yelena Loja, PT at 07/30/2024 8:09 AM EDT documented in this [facility]06-18-2025 NoteNEUROCRITICAL CARE PROGRESS NOTE Patient Name: Efraín Meredith Patient : 1935 Acct: [id number] Date of Admission: 07/29/2024 Room/Bed: T2-207/T2-207 A PCP: Devon Stokes Chief Complaint: SAH Interval Events: - Angio negative for vascular malformation - c/o intermittent tingling in LUE, start keppra - Exam stable, walking around the unit prior to angio Current Hospital Medications: Current Medications[1] Continuous Infusions: Continuous Meds[2] Vitals: Patient Vitals for the past 8 hrs: BP Pulse Resp SpO2 08/01/24 1200 119/99 72 13 99 % 08/01/24 1100 123/75 74 19 96 % 08/01/24 1047 120/68 80 17 99 % 08/01/24 1045 -- 75 19 97 % 08/01/24 1042 136/85 75 19 94 % 08/01/24 1040 -- 77 20 97 % 08/01/24 1037 138/92 80 21 96 % 08/01/24 1035 -- 79 17 97 % 08/01/24 1032 (!) 137/122 79 17 -- 08/01/24 1030 -- 75 19 -- 08/01/24 1027 136/81 75 19 95 % 08/01/24 1025 -- 76 17 98 % 08/01/24 1022 137/83 76 18 95 % 08/01/24 1020 -- 75 16 98 % 08/01/24 1017 127/76 70 14 95 % 08/01/24 1015 -- 73 16 97 % 08/01/24 1012 121/81 75 17 95 % 08/01/24 1010 -- 71 15 97 % 08/01/24 1007 123/80 73 18 94 % 08/01/24 1005 -- 73 18 92 % 08/01/24 1002 126/74 72 15 94 % 08/01/24 1000 -- 78 22 96 % 08/01/24 0957 138/74 74 20 97 % 08/01/24 0955 -- 74 20 99 % 08/01/24 0952 134/74 71 16 98 % 08/01/24 0950 -- 73 22 99 % 08/01/24 0947 138/67 75 25 100 % 08/01/24 0945 -- 78 22 99 % 08/01/24 0942 -- 83 17 100 % 08/01/24 0800 125/70 63 19 98 % 08/01/24 0500 123/68 68 25 96 % I/O last 3 completed shifts: In: - (0 mL/kg) Out: 250 (3.8 mL/kg) [Urine:250 (0.1 mL/kg/hr)] Weight: 66.3 kg Physical Examination: General: Well appearing HEENT: Normocephalic and atraumatic. Cardiac: Regular rate Pulm: Breathing comfortably on NC post IR GI/: Nondistended, nontender. Ext: No edema. Skin: No rashes or lesions. Neuro: Aox4. Expressive and receptive language intact. PERRL. EOMI. Midline gaze. VFI. Face symmetric. V1-V3 sensation intact. Palate rise symmetrical. Shoulder shrug intact. Tongue midline. LUE 5/5 LLE 5/5 RUE 5/5 RLE 5/5 Sensation intact to light touch and pinprick No ataxia or dysmetria. No extinction or neglect. Gait deferred in acute setting Results: Recent Results (from the past 24 hours) Basic metabolic panel Collection Time: 08/01/24 4:33 AM Result Value Ref Range SODIUM 137 136 - 145 mmol/L POTASSIUM 4.0 3.5 - 5.1 mmol/L CHLORIDE 108 (H) 98 - 107 mmol/L CARBON DIOXIDE 21 (L) 23 - 31 mmol/L UREA NITROGEN 16 9 - 23 mg/dL CREATININE 0.92 0.72 - 1.25 mg/dL GLUCOSE 115 82 - 115 mg/dL CALCIUM 9.2 8.8 - 10.0 mg/dL ANION GAP 8 3 - 13 mmol/L eGFR 80.0 >60.0 mL/min/1.73m*2 Hepatic function panel Collection Time: 08/01/24 4:33 AM Result Value Ref Range BILIRUBIN, TOTAL 0.9 <1.2 mg/dL BILIRUBIN, DIRECT 0.3 <0.5 mg/dL ALKALINE PHOSPHATASE 74 40 - 150 U/L AST (SGOT) 20 <34 U/L ALT 25 <40 U/L ALBUMIN 3.8 3.4 - 4.8 g/dL TOTAL PROTEIN 7.1 6.4 - 8.3 g/dL CBC auto differential Collection Time: 08/01/24 4:33 AM Result Value Ref Range Auto WBC 11.4 (H) 3.6 - 10.7 10*3/uL RBC 4.85 4.40 - 5.90 10*6/uL Hemoglobin 14.0 13.0 - 18.0 g/dL Hematocrit 42.1 40.0 - 52.0 % MCV 86.8 77.0 - 99.0 fL MCH 28.9 26.0 - 34.0 pg MCHC 33.3 30.5 - 36.0 % RDW 13.3 11.5 - 15.0 % Platelets 215 140 - 440 10*3/uL MPV 11.0 9.0 - 12.7 fL nRBC 0.0 0.0 - 2.0 /100 WBCs Neutrophils Relative 49.5 38.0 - 82.0 % Lymphocytes Relative 40.7 15.0 - 45.0 % Monocytes Relative 6.9 5.0 - 13.0 % Eosinophils Relative 1.9 0.0 - 6.0 % Basophils Relative 0.5 0.0 - 2.0 % Immature Grans % 0.5 0.0 - 2.0 % Neutrophils Absolute 5.6 1.8 - 7.5 10*3/uL Lymphocytes Absolute 4.6 (H) 1.0 - 4.3 10*3/uL Monocytes Absolute 0.8 0.0 - 0.9 10*3/uL Eosinophils Absolute 0.2 0.0 - 0.5 10*3/uL Basophils Absolute 0.1 0.0 - 0.2 10*3/uL Immature Grans Absolute 0.1 (H) <0.1 10*3/uL PROTIME/INR & PTT Collection Time: 08/01/24 4:33 AM Result Value Ref Range PROTHROMBIN TIME 11.1 9.0 - 12.0 s INR 1.0 0.9 - 1.1 APTT 24.4 20.0 - 30.5 s Magnesium Collection Time: 08/01/24 4:33 AM Result Value Ref Range MAGNESIUM 2.0 1.6 - 2.6 mg/dL Phosphorus Collection Time: 08/01/24 4:33 AM Result Value Ref Range PHOSPHORUS 3.1 2.3 - 4.7 mg/dL Calcium, ionized Collection Time: 08/01/24 4:33 AM Result Value Ref Range Calcium, Ion 4.50 4.30 - 5.20 mg/dL PH, IONIZED CALCIUM 7.47 (H) 7.31 - 7.46 Since admission: No results for input(s): CKTOTAL, TROPONINI in the last 72 hours. Recent Labs 08/01/24 0433 ALKPHOS 74 ALT 25 AST 20 BILITOT 0.9 BILIDIR 0.3 @[facility]) ABGs:)No results for input(s): PH, PO2, PCO2, HCO3, O2SAT in the last 72 hours. No lab exists for component: BE Cultures: Blood culture #1: No lab exists for component: BC Blood culture #2: No lab exists for component: BLOODCULT2 Antiepileptic levels: No (more content not included)...[facility]06-18-2025 Note* Care Coordination - Araseli Saunders RN - 08/01/2024 11:11 AM EDT Care Management Progress Note Consults to IP CONSULT TO NEUROLOGY IP CONSULT TO CASE MANAGEMENT IP CONSULT TO NEUROLOGY IP CONSULT TO PALLIATIVE CARE IP CONSULT TO WOUND PREVENTION IP CONSULT TO ENDOVASCULAR NEUROLOGY Discharge Planning/Barriers: 08/01/24 1111 Rapid Rounds Attendance Extender Planned Discharge Disposition Home If assistance needed, confirmed caregiver ready, willing and able to care for patient at discharge Yes Confirmed with Lily (Spouse) [phone] Today we still await Clinical stability;Car Bracer recommendations (comment);Procedure (comment) Additional Comments: WARD/BRIDGETTN today Discharge Plan: Home. Case management will continue to follow for discharge planning. Length of Stay (Days): 3 GMLOS: No GMLOS Documented [id number]* Care Coordination - Araseli Saunders RN - 08/01/2024 11:11 AM EDT Care Management Progress Note Consults to IP CONSULT TO NEUROLOGY IP CONSULT TO CASE MANAGEMENT IP CONSULT TO NEUROLOGY IP CONSULT TO PALLIATIVE CARE IP CONSULT TO WOUND PREVENTION IP CONSULT TO ENDOVASCULAR NEUROLOGY Discharge Planning/Barriers: 08/01/24 1111 Rapid Rounds Attendance Extender Planned Discharge Disposition Home If assistance needed, confirmed caregiver ready, willing and able to care for patient at discharge Yes Confirmed with Lily (Spouse) [phone] Today we still await Clinical stability;Car Bracer recommendations (comment);Procedure (comment) Additional Comments: WARD/ROMELIA today Discharge Plan: Home. Case management will continue to follow for discharge planning. Length of Stay (Days): 3 GMLOS: No GMLOS Documented [id number] NoteCare Management Progress Note Consults to IP CONSULT TO NEUROLOGY IP CONSULT TO CASE MANAGEMENT IP CONSULT TO NEUROLOGY IP CONSULT TO PALLIATIVE CARE IP CONSULT TO WOUND PREVENTION IP CONSULT TO ENDOVASCULAR NEUROLOGY Discharge Planning/Barriers: 08/01/24 1111 Rapid Rounds Attendance Extender Planned Discharge Disposition Home If assistance needed, confirmed caregiver ready, willing and able to care for patient at discharge Yes Confirmed with Lily (Spouse) [phone] Today we still await Clinical stability;Car Bracer recommendations (comment);Procedure (comment) Additional Comments: DCA/EVN today Discharge Plan: Home. Case management will continue to follow for discharge planning. Length of Stay (Days): 3 GMLOS: No [facility]MLOS [facility] Miscellaneous Notes * Care Coordination - Araseli Saunders RN - 08/01/2024 11:11 AM EDT Care Management Progress Note Consults to IP CONSULT TO NEUROLOGY IP CONSULT TO CASE MANAGEMENT IP CONSULT TO NEUROLOGY IP CONSULT TO PALLIATIVE CARE IP CONSULT TO WOUND PREVENTION IP CONSULT TO ENDOVASCULAR NEUROLOGY Discharge Planning/Barriers: 08/01/24 1111 Rapid Rounds Attendance Extender Planned Discharge Disposition Home If assistance needed, confirmed caregiver ready, willing and able to care for patient at discharge Yes Confirmed with Lily (Spouse) [phone] Today we still await Clinical stability;Car Bracer recommendations (comment);Procedure (comment) Additional Comments: DCA/EVN today Discharge Plan: Home. Case management will continue to follow for discharge planning. Length of Stay (Days): 3 GMLOS: No GMLOS Documented * Brief Op Note - Juan Altman MD - 08/01/2024 10:56 AM EDT Date: 08/01/2024 Location: [facility] Log Name: Duy Meredith, : 1935, Diagnostic cerebral angiogram with 3D reconstruction angiography Moderate procedural sedation for 60 minutes Juan Altman MD No aneurysms, vascular malformations or intracranial dissection was identified as a cause for the subarachnoid hemorrhage. There is mild multifocal intracranial atherosclerosis. In the correct clinical setting and age group, a vasculopathy like mild RCVS would not be angiographically distinguishable from multifocal intracranial atherosclerosis. Complications: None EBL: 20 ml Groin closure was with manual compression and good hemostasis was achieved. 5 [place] Mynx vascular closure device was attempted first but failed to deploy. Recommendations Post angio orders placed. Follow-up in 8 weeks * Care Coordination - Gabi Batista RN - 08/01/2024 10:36 AM EDT Spoke with PCP office and follow up appointment scheduled. What's Next What's Next Follow up with Devon Stokes Tuesday Follow up from hospital stay at 09:00 AM with Jennifer URIOSTEGUI [address] [place] [address] * Care Coordination - Gabi Batista RN - 08/01/2024 9:26 AM EDT Called PCP office a second time to schedule follow up. Had to leave message, awaiting callback. * Care Coordination - Gabi Batista RN - 07/31/2024 2:27 PM EDT Called PCP office to schedule follow up and had to leave message awaiting callback. * Care Coordination - Gabi Batista RN - 07/31/2024 2:12 PM EDT Met with patient and discussed Neurology follow up and he would like [facility]. Braden is scheduling in November and that is to far out. Neurology Follow Up: Oct 03 Hospital Follow Up with Connie Qiu APRN - [facility] Tuesday 1:00 PM Please arrive 15 minutes prior to appointment, bring insurance card and photo ID. [facility] [place] [address] [place] [address] [facility] [address] Arrive at: [facility] * Patient Care Conference - DARIO Ann - 07/31/2024 11:18 AM EDT Palliative Care Interdisciplinary Team Note: Diagnosis: Principal Problem: Intracranial hemorrhage (HCC) Chief Complaint: Efraín Meredith is a 88 y.o. male with chief complaint of: John Bleed Reason Palliative Following:Goals of Care Plan:Ongoing Goals of Care Discussions Code Status: Full Code Medications: Palliative Care Not Managing Any Medications Nursing: Routine Nursing Care Social Work: No Unmet Needs Spiritual Care: No Unmet Needs Pharmacy: No Unmet Needs Psychology/Psychiatry: No Unmet Needs * Care Coordination - Araseli Saunders RN - 07/31/2024 11:17 AM EDT Care Management Progress Note Consults to IP CONSULT TO NEUROLOGY IP CONSULT TO CASE MANAGEMENT IP CONSULT TO NEUROLOGY IP CONSULT TO PALLIATIVE CARE IP CONSULT TO WOUND PREVENTION IP CONSULT TO ENDOVASCULAR NEUROLOGY Discharge Planning/Barriers: 07/31/24 1116 Rapid Rounds Attendance Extender Planned Discharge Disposition Home If assistance needed, confirmed caregiver ready, willing and able to care for patient at discharge Yes Confirmed with Lily (Spouse) [phone] Today we still await Clinical stability;Car Bracer recommendations (comment) Additional Comments: PT rec noted CM wittnessed patient and Lily walking laps around ICU. CM spoke with patient and Lily, plan for discharge home. Discharge Plan: Home. Case management will continue to follow for discharge planning. Length of Stay (Days): 2 GMLOS: No GMLOS Documented * Care Coordination - Araseli Saunders RN - 07/30/2024 2:05 PM EDT Care Management Progress Note Consults to IP CONSULT TO NEUROLOGY IP CONSULT TO CASE MANAGEMENT IP CONSULT TO NEUROLOGY IP CONSULT TO PALLIATIVE CARE IP CONSULT TO WOUND PREVENTION IP CONSULT TO ENDOVASCULAR NEUROLOGY Initial Assessment: Chart reviewed. Patient from home with spouse, admitted for stroke. Spoke with patient at bedside. Introduced myself and role. Discussed discharge planning. Patient has insurance and PCP listed on EHR. Patient hopes to go home with spouse. Patient would have transportation home if able to go home at discharge. CM will follow for discharge planning. Discharge Planning/Barrier: 07/30/24 1404 Rapid Rounds Attendance Extender Planned Discharge Disposition Home If assistance needed, confirmed caregiver ready, willing and able to care for patient at discharge Yes Confirmed with Lily (Spouse) [phone] Today we still await Clinical stability;Car Bracer recommendations (comment) Additional Comments: PT/OT pending Discharge Plan: Home. Case management will continue to follow for discharge planning. Length of Stay (Days): 1 GMLOS: No GMLOS Documented * Significant Event - Demetri Quinonez DO - 07/29/2024 6:26 PM EDT NCC Called about patient admission. 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 No trauma. No anticoagulation History. NIHSS 4 per primary team. Non aneurysmal, nontraumatic cortical SAH - MRI and MRV - SBP 130-150mmHg - Routine EEG Demetri Quinonez DO documented in this [facility]06-18-2025 Procedure note* Brief Op Note - Juan Altman MD - 08/01/2024 10:56 AM EDT Date: 08/01/2024 Location: [facility] Log Name: Duy Meredith, : 1935, Diagnostic cerebral angiogram with 3D reconstruction angiography Moderate procedural sedation for 60 minutes Juan Altman MD No aneurysms, vascular malformations or intracranial dissection was identified as a cause for the subarachnoid hemorrhage. There is mild multifocal intracranial atherosclerosis. In the correct clinical setting and age group, a vasculopathy like mild RCVS would not be angiographically distinguishable from multifocal intracranial atherosclerosis. Complications: None EBL: 20 ml Groin closure was with manual compression and good hemostasis was achieved. 5 [place] Mynx vascular closure device was attempted first but failed to deploy. Recommendations Post angio orders placed. Follow-up in 8 weeks [facility] [employer] Work Phone: [phone] NotePt tolerated procedure well. Transfer back to T2 for observation.[facility]06-[facility] Nurse Note* Derek Rashid RN - 08/01/2024 10:53 AM EDT Pt tolerated procedure well. Transfer back to T2 for observation. [id number] Nurse Note* Derek Rashid RN - 08/01/2024 10:53 AM EDT Pt tolerated procedure well. Transfer back to T2 for observation. * Derek Rashid RN - 08/01/2024 10:42 AM EDT Hemostasis achieved. * Derek Rashid RN - 08/01/2024 9:49 AM EDT Patient arrived from T2 for DCA. Dr. Altman in to speak with the patient regarding procedure, and consent was obtained. Patient's lab values and allergies were reviewed. Patient was placed supine on exam table, prepped and draped in sterile fashion. Telemetry monitors were placed. * Suzy Ferrera RN - 08/01/2024 7:11 AM EDT Wound Care consulted for Pressure Injury Prevention. Pt's Olegario= 22, pt is no longer at risk at this time. PT consult in place. Will continue to follow peripherally. Please vocera or secure chat message with any questions. Kim Ferrera RN, CWCN documented in this [facility]06-18-2025 Hospital Discharge instructions* Discharge Instructions* YVETTE Douglass CNP - 08/01/2024 10:50 AM EDT - bedrest with right leg straight for 4 hours - no lifting > 10 pounds for 72 hours - ok to shower 24 hours post angio - no soaking, swimming, sauna for 7 days - follow up with Dr. Altman in 8-10 weeks documented in this [facility]06-18-2025 Nurse Note* Derek Rashid RN - 08/01/2024 10:42 AM EDT Hemostasis achieved. [id number] Note* Care Coordination - Gabi Batista RN - 08/01/2024 10:36 AM EDT Spoke with PCP office and follow up appointment scheduled. What's Next What's Next Follow up with Devon Stokes Tuesday Follow up from hospital stay at 09:00 AM with Jennifer URIOSTEGUI [address] [place] [address] [id number] Note* Care Coordination - Gabi Batista RN - 08/01/2024 10:36 AM EDT Spoke with PCP office and follow up appointment scheduled. What's Next What's Next Follow up with Devon Stokes Tuesday Follow up from hospital stay at 09:00 AM with Jennifer URIOSTEGUI [address] [place] [address] [id number] NotePatient arrived from T2 for DCA[address] Dr[address] Altman in to speak with the patient regarding procedure, and consent was obtained. Patient's lab values and allergies were reviewed. Patient was placed supine on exam table, prepped and draped in sterile fashion. Telemetry monitors were placed.[facility]06-[facility] Nurse Note* Derek Rashid RN - 08/01/2024 9:49 AM EDT Patient arrived from T2 for DCA. Dr. Altman in to speak with the patient regarding procedure, and consent was obtained. Patient's lab values and allergies were reviewed. Patient was placed supine on exam table, prepped and draped in sterile fashion. Telemetry monitors were placed. [id number] Note* Care Coordination - Gabi Batista RN - 08/01/2024 9:26 AM EDT Called PCP office a second time to schedule follow up. Had to leave message, awaiting callback. [id number] Note* Care Coordination - Gabi Batista RN - 08/01/2024 9:26 AM EDT Called PCP office a second time to schedule follow up. Had to leave message, awaiting callback. [id number] Nurse Note* Suzy Ferrera RN - 08/01/2024 7:11 AM EDT Wound Care consulted for Pressure Injury Prevention. Pt's Olegario= 22, pt is no longer at risk at this time. PT consult in place. Will continue to follow peripherally. Please vocera or secure chat message with any questions. Kim Ferrera RN, [facility] [id number] Note* Care Coordination - Gabi Batista RN - 07/31/2024 2:27 PM EDT Called PCP office to schedule follow up and had to leave message awaiting callback. [facility] [id number] Note* Care Coordination - Gabi Batista RN - 07/31/2024 2:27 PM EDT Called PCP office to schedule follow up and had to leave message awaiting callback. [id number] Note* Care Coordination - Gabi Batista RN - 07/31/2024 2:12 PM EDT Met with patient and discussed Neurology follow up and he would like [facility]. Braden is scheduling in November and that is to far out. Neurology Follow Up: Oct 03 Hospital Follow Up with Connie Qiu APRN - [facility] Tuesday 1:00 PM Please arrive 15 minutes prior to appointment, bring insurance card and photo ID. [facility] - [place] [address] [facility] [address] [facility] [address] Arrive at: [facility] [id number] Note* Care Coordination - Gabi Batista RN - 07/31/2024 2:12 PM EDT Met with patient and discussed Neurology follow up and he would like [facility]. Braden is scheduling in November and that is to far out. Neurology Follow Up: Oct 03 Hospital Follow Up with Connie Qiu APRN - [facility] Tuesday 1:00 PM Please arrive 15 minutes prior to appointment, bring insurance card and photo ID. [facility] - [place] [address] [place] [address] [facility] [address] Arrive at: [facility] [id number] Group counseling note* Patient Care Conference - DARIO Ann - 07/31/2024 11:18 AM EDT Palliative Care Interdisciplinary Team Note: Diagnosis: Principal Problem: Intracranial hemorrhage (HCC) Chief Complaint: Efraín Meredith is a 88 y.o. male with chief complaint of: John Bleed Reason Palliative Following:Goals of Care Plan:Ongoing Goals of Care Discussions Code Status: Full Code Medications: Palliative Care Not Managing Any Medications Nursing: Routine Nursing Care Social Work: No Unmet Needs Spiritual Care: No Unmet Needs Pharmacy: No Unmet Needs Psychology/Psychiatry: No Unmet Needs [facility] [id number] Note* Care Coordination - Araseli Saunders RN - 07/31/2024 11:17 AM EDT Care Management Progress Note Consults to IP CONSULT TO NEUROLOGY IP CONSULT TO CASE MANAGEMENT IP CONSULT TO NEUROLOGY IP CONSULT TO PALLIATIVE CARE IP CONSULT TO WOUND PREVENTION IP CONSULT TO ENDOVASCULAR NEUROLOGY Discharge Planning/Barriers: 07/31/24 1116 Rapid Rounds Attendance Extender Planned Discharge Disposition Home If assistance needed, confirmed caregiver ready, willing and able to care for patient at discharge Yes Confirmed with Lily (Spouse) [phone] Today we still await Clinical stability;Car Bracer recommendations (comment) Additional Comments: PT rec noted CM wittnessed patient and Lily walking laps around ICU. CM spoke with patient and Lily, plan for discharge home. Discharge Plan: Home. Case management will continue to follow for discharge planning. Length of Stay (Days): 2 GMLOS: No GMLOS Documented [facility] [id number] Note* Care Coordination - Araseli Saunders RN - 07/31/2024 11:17 AM EDT Care Management Progress Note Consults to IP CONSULT TO NEUROLOGY IP CONSULT TO CASE MANAGEMENT IP CONSULT TO NEUROLOGY IP CONSULT TO PALLIATIVE CARE IP CONSULT TO WOUND PREVENTION IP CONSULT TO ENDOVASCULAR NEUROLOGY Discharge Planning/Barriers: 07/31/24 1116 Rapid Rounds Attendance Extender Planned Discharge Disposition Home If assistance needed, confirmed caregiver ready, willing and able to care for patient at discharge Yes Confirmed with Lily (Spouse) [phone] Today we still await Clinical stability;Car Bracer recommendations (comment) Additional Comments: PT rec noted CM wittnessed patient and Lily walking laps around ICU. CM spoke with patient and Lily, plan for discharge home. Discharge Plan: Home. Case management will continue to follow for discharge planning. Length of Stay (Days): 2 GMLOS: No GMLOS Documented T [facility] [id number] NoteCare Management Progress Note Consults to IP CONSULT TO NEUROLOGY IP CONSULT TO CASE MANAGEMENT IP CONSULT TO NEUROLOGY IP CONSULT TO PALLIATIVE CARE IP CONSULT TO WOUND PREVENTION IP CONSULT TO ENDOVASCULAR NEUROLOGY Discharge Planning/Barriers: 07/31/24 1116 Rapid Rounds Attendance Extender Planned Discharge Disposition Home If assistance needed, confirmed caregiver ready, willing and able to care for patient at discharge Yes Confirmed with Lily (Spouse) [phone] Today we still await Clinical stability;Car Bracer recommendations (comment) Additional Comments: PT rec noted CM wittnessed patient and Lily walking laps around ICU. CM spoke with patient and Lily, plan for discharge home. Discharge Plan: Home. Case management will continue to follow for discharge planning. Length of Stay (Days): 2 GMLOS: No [facility] [address] [place] [id number] ROUTINE EEG REPORT Patient Name: Efraín Meredith : 1935 Date of Study: 07/31/24 Duration Recorded: 23 minutes EEG#: [id number] WRAPPER LAYER: FRANSISCA/OLGA LIDIA PROVIDER REQUESTING STUDY: RICHI Perkins REASON FOR EXAM: Evaluate for seizures DIAGNOSIS TAG: Subarachnoid Hemorrhage (SAH) HISTORY: Efraín Meredith is a 88 y.o. male with history of HTN, HLD, CAD s/p stent, HFrEF (25%), s/p ICD, TIA who presented to [facility] from [facility]SH on 07/29 with a chief complaint of intermittent slurred speech, LUE numbness x5 days. CT head with R cortical SAH. Transferred to [facility] T2. CT head repeated, stable. CTA head/neck without vascular abnormality. MEDICATIONS: Current Medications[1] TECHNICAL ASPECTS: This routine scalp EEG study with video was carried out at [facility]. Scalp electrodes were positioned in person by an nuclear medical technologist, following patient education, according to the 10-20 International system of electrode placement and maintained for integrity and quality of the recording. EEG data was recorded continuously and digitally stored. The nuclear medical technologist reviewed all automated detections and manual events and prepared the data for archiving and provider review. Referential and bipolar montages were used for review. TECHNOLOGIST NOTES: No skull or scalp defects were observed. BACKGROUND ACTIVITY: Posterior background activityA continuous organized and well-modulated 8-9 Hz, 20-30 uV rhythm was seen symmetrically over the posterior head regions bilaterally. Beta range: Fronto-centrally predominant beta range activity (15-25 Hz, 10-20 uV) was seen. Sleep: Stage N2 sleep was reached as evidenced by the appearance of vertex waves and sleep spindles seen symmetrically over the central head regions bilaterally. Normal Variants: No normal variants were identified. 10:21:36 -Background activity (Referential to average) SLOWING: No abnormal slowing was seen. INTERICTAL EPILEPTIFORM ACTIVITY: No epileptiform activity was seen. ICTAL ACTIVITY: No ictal activity was seen. NON-EPILEPTIC EVENTS: None. ACTIVATION PROCEDURES: Photic stimulation was not performed. Hyperventilation was not performed. IMPRESSION AND ACTIONS TAKEN: This routine EEG with video is within normal limits for the awake and sleep states. No abnormal slowing, interictal epileptiform activity, or seizures are observed. Jackson Newman, PhD Clinical Neurophysiologist Demetri Quinonez DO [1] Current Facility-Administered Medications Medication Dose Route Frequency Provider Last Rate Last Admin acetaminophen (Tylenol) tablet 1,000 mg 1,000 mg Oral q6h PRN Marion A Rosa, IT PORTFOLIO MANAGER - ARCHITECTURAL DESIGNER 1,000 mg at 07/29/24 180 atorvastatin (Lipitor) tablet 20 mg 20 mg Oral Nightly Marion A Rosa, IT PORTFOLIO MANAGER - ARCHITECTURAL DESIGNER 20 mg at 07/30/242039 bisacodyl (Dulcolax) suppository 10 mg 10 mg Rectal Daily PRN Marion A Rosa, IT PORTFOLIO MANAGER - ARCHITECTURAL DESIGNER mupirocin (Bactroban) 2 % ointment 1 Application 1 Application Nasal BID Marion A Rosa, IT PORTFOLIO MANAGER - ARCHITECTURAL DESIGNER 1 Application at 07/30/242040 niCARdipine (Cardene) infusion 20mg in 0.9 % sodium chloride 200mL (premix) 2.5-15 mg/hr IntraVENous Continuous Marion A Rosa, IT PORTFOLIO MANAGER - ARCHITECTURAL DESIGNER ondansetron ODT (Zofran-ODT) disintegrating tablet 4 mg 4 mg Oral q8h PRN Marion A Rosa, IT PORTFOLIO MANAGER - ARCHITECTURAL DESIGNER Or ondansetron (Zofran) injection 4 mg 4 mg IntraVENous q6h PRN Marion A Rosa, IT PORTFOLIO MANAGER - ARCHITECTURAL DESIGNER pantoprazole (ProtoNix) EC tablet 40 mg 40 mg Oral Nightly Marion A Rosa, IT PORTFOLIO MANAGER - ARCHITECTURAL DESIGNER 40 mg at 07/30/242039 Or pantoprazole (ProtoNix) 40 mg in sodium chloride (PF) 0.9 % 10 mL injection 40 mg IntraVENous Nightly Marion A Rosa, IT PORTFOLIO MANAGER - ARCHITECTURAL DESIGNER polyethylene glycol (PEG) 3350 (Miralax) packet 17 g 17 g Oral Daily PRN Marion A Rosa, IT PORTFOLIO MANAGER - ARCHITECTURAL DESIGNER sodium chloride 0.9% (NS) flush 10 mL 10 mL IntraVENous 2 times per day Marion A Rosa, IT PORTFOLIO MANAGER - ARCHITECTURAL DESIGNER 10 mL at 07/30/24 0746 sodium chloride 0.9% (NS) flush 10 mL 10 mL IntraVENous PRN Marion A Rosa, IT PORTFOLIO MANAGER - ARCHITECTURAL DESIGNER sodium chloride 0.9% (NS) flush 10 mL 10 mL IntraVENous PRN Marion A Rosa, IT PORTFOLIO MANAGER - [facility] [id number] Procedure note* Demetri Quinonez, DO - 07/31/2024 10:46 AM EDTAssociated Order(s): EEG Images from the original note were not included. [facility] [address] [place] [id number] ROUTINE EEG REPORT Patient Name: Efraín Meredith : 1935 Date of Study: 07/31/24 Duration Recorded: 23 minutes EEG#: [id number] WRAPPER LAYER: FRANSISCA/OLGA LIDIA PROVIDER REQUESTING STUDY: RICHI Perkins REASON FOR EXAM: Evaluate for seizures DIAGNOSIS TAG: Subarachnoid Hemorrhage (SAH) HISTORY: Efraín Meredith is a 88 y.o. male with history of HTN, HLD, CAD s/p stent, HFrEF (25%), s/p ICD, TIA who presented to [facility] from OSH on 07/29 with a chief complaint of intermittent slurred speech, LUE numbness x5 days. CT head with R cortical SAH. Transferred to [facility] T2. CT head repeated, stable. CTA head/neck without vascular abnormality. MEDICATIONS: Current Medications[1] TECHNICAL ASPECTS: This routine scalp EEG study with video was carried out at [facility]. Scalp electrodes were positioned in person by an nuclear medical technologist, following patient education, according to the 10-20 International system of electrode placement and maintained for integrity and quality of the recording. EEG data was recorded continuously and digitally stored. The nuclear medical technologist reviewed all automated detections and manual events and prepared the data for archiving and provider review. Referential and bipolar montages were used for review. TECHNOLOGIST NOTES: No skull or scalp defects were observed. BACKGROUND ACTIVITY: Posterior background activityA continuous organized and well-modulated 8-9 Hz, 20-30 uV rhythm was seen symmetrically over the posterior head regions bilaterally. Beta range: Fronto-centrally predominant beta range activity (15-25 Hz, 10-20 uV) was seen. Sleep: Stage N2 sleep was reached as evidenced by the appearance of vertex waves and sleep spindlesseen symmetrically over the central head regions bilaterally. Normal Variants: No normal variants were identified. 10:21:36 -Background activity (Referential to average) SLOWING: No abnormal slowing was seen. INTERICTAL EPILEPTIFORM ACTIVITY: No epileptiform activity was seen. ICTAL ACTIVITY: No ictal activity was seen. NON-EPILEPTIC EVENTS: None. ACTIVATION PROCEDURES: Photic stimulation was not performed. Hyperventilation was not performed. IMPRESSION AND ACTIONS TAKEN: This routine EEG with video is within normal limits for the awake and sleep states. No abnormal slowing, interictal epileptiform activity, or seizures are observed. Jackson Newman, PhD Clinical Neurophysiologist Demetri Quinonez DO [1] Current Facility-Administered Medications Medication Dose Route Frequency Provider Last Rate Last Admin acetaminophen (Tylenol) tablet 1,000 mg 1,000 mg Oral q6h PRN Marion A Rosa, IT PORTFOLIO MANAGER - ARCHITECTURAL DESIGNER 1,000 mgat 07/29/24 1802 atorvastatin (Lipitor) tablet 20 mg 20 mg Oral Nightly Marion A Rosa, IT PORTFOLIO MANAGER - ARCHITECTURAL DESIGNER 20 mg at 07/30/242039 bisacodyl (Dulcolax) suppository 10 mg 10 mg Rectal Daily PRN Marion A Rosa, IT PORTFOLIO MANAGER - ARCHITECTURAL DESIGNER mupirocin (Bactroban) 2 % ointment 1 Application 1 Application Nasal BID Marion A Rosa, IT PORTFOLIO MANAGER - ARCHITECTURAL DESIGNER 1 Application at 07/30/242040 niCARdipine (Cardene) infusion 20mg in 0.9 % sodium chloride 200mL (premix) 2.5- 15 mg/hr IntraVENous Continuous Marion A Orsa, IT PORTFOLIO MANAGER - ARCHITECTURAL DESIGNER ondansetron ODT (Zofran-ODT) disintegrating tablet 4 mg 4 mg Oral q8h PRN Marion A Rosa, IT PORTFOLIO MANAGER - ARCHITECTURAL DESIGNER Or ondansetron (Zofran) injection 4 mg 4 mg IntraVENous q6h PRN Marion A Rosa, IT PORTFOLIO MANAGER - ARCHITECTURAL DESIGNER pantoprazole (ProtoNix) EC tablet 40 mg 40 mg Oral Nightly Marion A Rosa, IT PORTFOLIO MANAGER - ARCHITECTURAL DESIGNER 40 mg at 07/30/242039 Or pantoprazole (ProtoNix) 40 mg in sodium chloride (PF) 0.9 % 10 mL injection 40 mg IntraVENous Nightly Marion A Rosa, IT PORTFOLIO MANAGER - ARCHITECTURAL DESIGNER polyethylene glycol (PEG) 3350 (Miralax) packet 17 g 17 g Oral Daily PRN Marion A Rosa, IT PORTFOLIO MANAGER - ARCHITECTURAL DESIGNER sodium chloride 0.9% (NS) flush 10 mL 10 mL IntraVENous 2 times per day Marion A Rosa, IT PORTFOLIO MANAGER - ARCHITECTURAL DESIGNER 10 mL at 07/30/24 0746 sodium chloride 0.9% (NS) flush 10 mL 10 mL IntraVENous PRN Marion A Rosa, IT PORTFOLIO MANAGER - ARCHITECTURAL DESIGNER sodium chloride 0.9% (NS) flush 10 mL 10 mL IntraVENous PRN Marion A Rosa, IT PORTFOLIO MANAGER - ARCHITECTURAL DESIGNER [facility] [employer] Work Phone: [phone] Procedure note* Demetri Quinonez DO - 07/31/2024 10:46 AM EDTAssociated Order(s): EEG Images from the original note were not included. [facility] [address] [place] [id number] ROUTINE EEG REPORT Patient Name: Efraín Meredith : 1935 Date of Study: 07/31/24 Duration Recorded: 23 minutes EEG#: [id number] WRAPPER LAYER: FRANSISCA/OLGA LIDIA PROVIDER REQUESTING STUDY: RICHI Perkins REASON FOR EXAM: Evaluate for seizures DIAGNOSIS TAG: Subarachnoid Hemorrhage (SAH) HISTORY: Efraín Meredith is a 88 y.o. male with history of HTN, HLD, CAD s/p stent, HFrEF (25%), s/p ICD, TIA who presented to [facility] from OSH on 07/29 with a chief complaint of intermittent slurred speech, LUE numbness x5 days. CT head with R cortical SAH. Transferred to [facility] T2. CT head repeated, stable. CTA head/neck without vascular abnormality. MEDICATIONS: Current Medications[1] TECHNICAL ASPECTS: This routine scalp EEG study with video was carried out at [facility]. Scalp electrodes were positioned in person by an nuclear medical technologist, following patient education, according to the 10-20 International system of electrode placement and maintained for integrity and quality of the recording. EEG data was recorded continuously and digitally stored. The nuclear medical technologist reviewed all automated detections and manual events and prepared the data for archiving and provider review. Referential and bipolar montages were used for review. TECHNOLOGIST NOTES: No skull or scalp defects were observed. BACKGROUND ACTIVITY: Posterior background activityA continuous organized and well-modulated 8-9 Hz, 20-30 uV rhythm was seen symmetrically over the posterior head regions bilaterally. Beta range: Fronto-centrally predominant beta range activity (15-25 Hz, 10-20 uV) was seen. Sleep: Stage N2 sleep was reached as evidenced by the appearance of vertex waves and sleep spindlesseen symmetrically over the central head regions bilaterally. Normal Variants: No normal variants were identified. 10:21:36 -Background activity (Referential to average) SLOWING: No abnormal slowing was seen. INTERICTAL EPILEPTIFORM ACTIVITY: No epileptiform activity was seen. ICTAL ACTIVITY: No ictal activity was seen. NON-EPILEPTIC EVENTS: None. ACTIVATION PROCEDURES: Photic stimulation was not performed. Hyperventilation was not performed. IMPRESSION AND ACTIONS TAKEN: This routine EEG with video is within normal limits for the awake and sleep states. No abnormal slowing, interictal epileptiform activity, or seizures are observed. Jackson Newman, PhD Clinical Neurophysiologist Demetri Quinonez DO [1] Current Facility-Administered Medications Medication Dose Route Frequency Provider Last Rate Last Admin acetaminophen (Tylenol) tablet 1,000 mg 1,000 mg Oral q6h PRN Marion A Rosa, IT PORTFOLIO MANAGER - ARCHITECTURAL DESIGNER 1,000 mgat 07/29/24 180 atorvastatin (Lipitor) tablet 20 mg 20 mg Oral Nightly Marion A Rosa, IT PORTFOLIO MANAGER - ARCHITECTURAL DESIGNER 20 mg at 07/30/242039 bisacodyl (Dulcolax) suppository 10 mg 10 mg Rectal Daily PRN Maroin A Rosa, IT PORTFOLIO MANAGER - ARCHITECTURAL DESIGNER mupirocin (Bactroban) 2 % ointment 1 Application 1 Application Nasal BID Marion A Rosa, IT PORTFOLIO MANAGER - ARCHITECTURAL DESIGNER 1 Application at 07/30/242040 niCARdipine (Cardene) infusion 20mg in 0.9 % sodium chloride 200mL (premix) 2.5- 15 mg/hr IntraVENous Continuous Marion A Rosa, IT PORTFOLIO MANAGER - ARCHITECTURAL DESIGNER ondansetron ODT (Zofran-ODT) disintegrating tablet 4 mg 4 mg Oral q8h PRN Marion A Rosa, IT PORTFOLIO MANAGER - ARCHITECTURAL DESIGNER Or ondansetron (Zofran) injection 4 mg 4 mg IntraVENous q6h PRN Marion A Rosa, IT PORTFOLIO MANAGER - ARCHITECTURAL DESIGNER pantoprazole (ProtoNix) EC tablet 40 mg 40 mg Oral Nightly Marion A Rosa, IT PORTFOLIO MANAGER - ARCHITECTURAL DESIGNER 40 mg at 07/30/242039 Or pantoprazole (ProtoNix) 40 mg in sodium chloride (PF) 0.9 % 10 mL injection 40 mg IntraVENous Nightly Marion A Rosa, IT PORTFOLIO MANAGER - ARCHITECTURAL DESIGNER polyethylene glycol (PEG) 3350 (Miralax) packet 17 g 17 g Oral Daily PRN Marion A Rosa, IT PORTFOLIO MANAGER - ARCHITECTURAL DESIGNER sodium chloride 0.9% (NS) flush 10 mL 10 mL IntraVENous 2 times per day Marion A Rosa, IT PORTFOLIO MANAGER - ARCHITECTURAL DESIGNER 10 mL at 07/30/24 0746 sodium chloride 0.9% (NS) flush 10 mL 10 mL IntraVENous PRN Marion A Rosa, IT PORTFOLIO MANAGER - ARCHITECTURAL DESIGNER sodium chloride 0.9% (NS) flush 10 mL 10 mL IntraVENous PRN Marion A Rosa, IT PORTFOLIO MANAGER - ARCHITECTURAL DESIGNER * ELIZABETH MÁRQUEZ - 07/30/2024 2:19 PM EDT Attempted routine EEG, patient going off unit for MRI. documented in this [facility]06-17-2025 NotePROGRESS NOTE: NEUROCRITICAL CARE Patient Name:Efraín Meredith Patient : 1935 Chief complaint: LUE numbness, dysarthria Hospital Summary: 88M HTN, HLD, CAD s/p stent, HFrEF (25%), s/p ICD, TIA who presented to [facility] from OSH on 07/29 with LUE numbness, weakness (intermittent) x5 days as well as slurred speech. CT head with R cortical SAH. CTA head/neck without vascular abnormality. Interval History: Afebrile. SBP 120-130's. Medications: Scheduled Meds: Scheduled Meds[1] PRN Meds: PRN Meds[2] Allergies: Patient has no known allergies. Review of Systems Mild headache that has since resolved. Physical Examination: Patient Vitals for the past 8 hrs: BP Temp Temp src Pulse Resp SpO2 Weight 07/31/24 0700 122/83 -- -- 74 25 96 % -- 07/31/24 0600 119/67 -- -- 72 15 95 % -- 07/31/24 0546 -- -- -- -- -- -- 66.3 kg (146 lb 2.6 oz) 07/31/24 0500 132/57 -- -- 75 22 99 % -- 07/31/24 0400 121/68 36.4 ?C (97.5 ?F) Temporal 73 16 96 % -- 07/31/24 0300 126/84 -- -- 72 20 95 % -- 07/31/24 0200 130/57 -- -- 70 14 95 % -- 07/31/24 0100 107/66 -- -- 68 22 96 % -- 07/31/24 0000 122/61 36.4 ?C (97.5 ?F) Temporal 71 23 94 % -- I/O last 3 completed shifts: In: 1350.2 (20.4 mL/kg) [P.O.:500; I.V.:850.2 (12.8 mL/kg)] Out: 2375 (35.8 mL/kg) [Urine:2375 (1 mL/kg/hr)] Weight: 66.3 kg General Physical Examination: General: Awake HEENT:Normocephalic, atraumatic CV: S1+S2, RRR, no MRG. Pulm:CTA b/l, unlabored Abdomen: Soft NT/ND. BS + Skin: Intact without ulcers, breakdowns or discoloration Extremities: normal with no edema or cyanosis Orthopedic limitation; No Pulses: Intact peripherally Carotid auscultation :No bruits Neurological Examination: Higher Functions: Mental Status Exam: Level of Alertness:Awake Orientation: Normal to self, time, place Memory: Normal Fund of Knowledge: Normal Language: Normal Dysarthria not present Cranial Nerves: -II Visual acuity: normal -II Visual bass: normal -III Pupils (~ 3 mm OD, 3 mm OU) equal, round, reactive to light -III-IV- Extraocular Movements: intact -Nystagmus not present -Saccades and pursuits normal -V Facial sensation: intact Corneal's Intact bilateral -VII Facial strength: intact -VIII Hearing: intact -IX-X- Gag reflex present -X Palate:intact -XI Shoulder shrug: intact -XII Tongue movement: normal Motor Examination: Tone after evaluation of 4 limbs, the following findings applied: Normal -Bulk: normal -Muscle Stretchafter evaluation of all limbs, and axial musculature the following findings applied: Drift: absent -Reflexes: after evaluation of 4 limbs, the following findings applied ; normal all limbs -Plantar responce: Flexor bilaterally Sensory Intact to light touch, pain / temperature, proprioception, Coordination: Arms Normal finger to nose Legs Intact heel knee tena testing Tremors not present Gait abnormal, patient unable to walk due to acute circumstances / bedrest / safety concerns NIHSS 0 ANCILLARY Cardiac testing: EKG: Sinus rhythm Inferior infarct, old Abnormal lateral Q waves Probable anterior infarct, age indeterminate TTE 07/29/24: Left Ventricle: Left ventricle is moderately dilated. Normal wall thickness. Severely reduced left ventricular systolic function. EF by 2D Simpsons Biplane is 27%, which may be a bit of an overestimate. Regardless, function is severely impaired. See diagram for wall motion findings. Grade III diastolic dysfunction with increased LAP. Right Ventricle: Right ventricle size is normal. ICD lead present in the right ventricle. Normal systolic function. Mitral Valve: Mildly thickened leaflets. Annular calcification. At least moderate (2+) regurgitation with a centrally directed jet. Systolic blunting of the pulmonary veins. Moderate apical tethering of both leaflets. Tricuspid Valve: Valve structure is normal. Mild to moderate (1-2+) regurgitation. Moderately elevated RVSP. RVSP is 56 mmHg. Radiology/imaging personal review: CT Head 07/29/24: Subarachnoid hemorrhage within the superior right frontal lobe, just anterior to the central sulcus. CT Head 07/30/24: Stable small volume acute subarachnoid hemorrhage. No new acute findings CTA head/neck 07/29/24: The intracranial right vertebral artery is faintly opacified and only a few thin and diminutive portions of the left intracranial vertebral artery are opacified. Only the thin and diminutive distal basilar artery is opacified. MRI Brain/MRV head 07/30/24: 1. Negative for dural venous sinus thrombosis. 2. Stable subarachnoid hemorrhage along the right central sulcus. No other acute intracranial abnormalities. 3. 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 ASSESSMENT / PLAN/RECOMMENDATIONS: R cortical SAH - Etiology: Ongoing work-up. (more content not included)...[facility]06[facility] NotePHYSICAL THERAPY [facility] Initial Evaluation Name/MRN: Duy Meredith ([id number]) Evaluation Date: 07/30/2024 Date of : 1935 Admission Date: 07/29/2024 3:49 PM Age: 88 y.o. Room/Bed: T2-207/T2 A Discharge Recommendation: Home independently Assessment IMPRESSION: pt is an 88 y/o male who was admitted to [facility] for intracranial hemorrhage. Came to ED for slurred speech and LUE numbness lasting 5 days. Pt was previously independent and did not use assistive device. He was independent for bed mobility, transfers, and ambulation. Recommend home independently at discharge. Admitting Diagnosis: intracranial hemorrhage Prognosis: good Performance Deficits /Impairments: Decreased Functional Mobility, Decreased Endurance, Decreased Balance, and Decreased ROM Decision Making: Medium Complexity Subjective Pt in bed and consented to PT. RN cleared pt for PT. Two family members in room. Pain: Pt denies any current pain. Past Medical History: Medical History[1] Past Surgical History: Surgical History[2] Admission Diagnosis: Patient Active Problem List Diagnosis Date Noted Intracranial hemorrhage (HCC) 07/29/2024 Automatic implantable cardioverter-defibrillator in situ 11/09/2021 LV dysfunction 05/26/2016 CAD (coronary artery disease) 05/26/2016 ICD (implantable cardioverter-defibrillator), single, in situ 05/26/2016 Old [place] (myocardial infarction) 05/26/2016 Presence of stent in LAD coronary artery 05/26/2016 Hyperlipidemia 05/26/2016 Medical Precautions: No active isolations Proper PPE donned/doffed in accordance with facility standards. Fall Risk: [place] Fall Risk Score: 60 (High Risk) Precautions/Restrictions: Fall Precautions Family/Caregiver Present: spouse Overall Cognitive Status: Exceptions - Arousal/alertness: appropriate responses to stimuli - Following commands: follows all commands without difficulty - Safety judgement: good awareness of safety precautions Overall Orientation Status: Oriented to Person Vision: Not Assessed Hearing: normal Social/Functional History Patient admitted from home. Lives With: Spouse Type of Home: Home Layout: Two Level Home - stays on first floor Home Access: Bathroom Shower/Tub: Toilet: Standard Home Equipment: none Homemaking Responsibilities: Independent Receives Help From: None Active Rehab Office Coordinator: Prior Level of Function Prior Level of ADL Function: Independent Prior Level of Mobility: Independent; Device: None Prior Level of Transfers: Independent Objective Lower Extremity Assessment AROM: WFL PROM: WFL Strength: Lower Extremity Strength Right Left Hip Flexion 5 5 Knee Extension 5 5 Knee Flexion 5 5 Ankle Dorsiflexion (DF) 5 5 Ankle Plantarflexion (PF) 5 5 Sensation: Not assessed this session Balance: Balance During Session: Posture: good Sitting - Static: Independent Sitting - Dynamic: Independent Standing - Static: Independent Standing - Dynamic: Independent Bed Mobility: Supine to sit: Independent Sit to supine: Independent Transfers Sit to stand: Independent Stand to sit: Independent Ambulation Ambulation 1 Assistive device(s) used: None Assist level: Independent Distance (ft): 400 Quality of gait: shuffling, slow leanne Outcome Measures AM-PAC How much HELP from another person do you currently need Turning from your back to your side while in a flat bed without using bedrails?: None Moving from lying on your back to sitting on the side of a flat bed without using bedrails?: None Moving to and from a bed to a chair (including a wheelchair)?: None Standing up from a chair using your arms (wheelchair or bedside chair)?: None Walking in a hospital room?: None Stair climbing assessed?: No AM-PAC Inpatient Mobility Raw Score (No Stairs) : 20 JH-HLM JH-HLM Score: Walked 250 ft or more (i.e. several laps on unit) Plan No skilled acute PT indicated at this time. Please reconsult should changes occur. Safety/Education Safety Safety Devices in place: All fall risk precautions in place, call light within reach, left in bed, and gait belt Restraints: No Education Education Given To: patient Education Provided: PT Role, PT Goals, Plan of Care, and Discharge Recommendations Education Method: Verbal Barriers to Learning: Education Outcome: Goals Patient Stated Goal: To go home Therapy Time Individual Co-Treatment Co-Evaluation Time In 0150 Time Out 0218 Minutes 28 RONNELL Diaz Patient's Physical Therapy Plan of Care supervision is transferred to a [facility] Services Physical Therapist. Goals and/or treatment plan was established in collaboration with patient/family/other representatives. [1] Past Medical History: Diagnosis Date CAD (coronary artery disease) Hyperlipidemia ICD (implantable cardioverter-defibrillator), single, in situ 12/29/2011 LV dysfunction Old OH (myocardial infarction) 2011 Ant (more content not included)...[facility]06-16-2025 Note Attempted routine EEG, patient going off unit for MRI.[facility] 07-30-2024 Procedure note* ELIZABETH MÁRQUEZ - 07/30/2024 2:19 PM EDT Attempted routine EEG, patient going off unit for MRI. [id number]* Care Coordination - Araseli Saunders RN - 07/30/2024 2:05 PM EDT Care Management Progress Note Consults to IP CONSULT TO NEUROLOGY IP CONSULT TO CASE MANAGEMENT IP CONSULT TO NEUROLOGY IP CONSULT TO PALLIATIVE CARE IP CONSULT TO WOUND PREVENTION IP CONSULT TO ENDOVASCULAR NEUROLOGY Initial Assessment: Chart reviewed. Patient from home with spouse, admitted for stroke. Spoke with patient at bedside. Introduced myself and role. Discussed discharge planning. Patient has insurance and PCP listed on EHR. Patient hopes to go home with spouse. Patient would have transportation home if able to go home at discharge. CM will follow for discharge planning. Discharge Planning/Barrier: 07/30/24 1404 Rapid Rounds Attendance Extender Planned Discharge Disposition Home If assistance needed, confirmed caregiver ready, willing and able to care for patient at discharge Yes Confirmed with Lily (Spouse) [phone] Today we still await Clinical stability;Car Bracer recommendations (comment) Additional Comments: PT/OT pending Discharge Plan: Home. Case management will continue to follow for discharge planning. Length of Stay (Days): 1 GMLOS: No GMLOS Documented [id number]* Care Coordination - Araseli Saunders RN - 07/30/2024 2:05 PM EDT Care Management Progress Note Consults to IP CONSULT TO NEUROLOGY IP CONSULT TO CASE MANAGEMENT IP CONSULT TO NEUROLOGY IP CONSULT TO PALLIATIVE CARE IP CONSULT TO WOUND PREVENTION IP CONSULT TO ENDOVASCULAR NEUROLOGY Initial Assessment: Chart reviewed. Patient from home with spouse, admitted for stroke. Spoke with patient at bedside. Introduced myself and role. Discussed discharge planning. Patient has insurance and PCP listed on EHR. Patient hopes to go home with spouse. Patient would have transportation home if able to go home at discharge. CM will follow for discharge planning. Discharge Planning/Barrier: 07/30/24 1404 Rapid Rounds Attendance Extender Planned Discharge Disposition Home If assistance needed, confirmed caregiver ready, willing and able to care for patient at discharge Yes Confirmed with Lily (Spouse) [phone] Today we still await Clinical stability;Car Bracer recommendations (comment) Additional Comments: PT/OT pending Discharge Plan: Home. Case management will continue to follow for discharge planning. Length of Stay (Days): 1 GMLOS: No GMLOS Documented [id number] NoteCare Management Progress Note Consults to IP CONSULT TO NEUROLOGY IP CONSULT TO CASE MANAGEMENT IP CONSULT TO NEUROLOGY IP CONSULT TO PALLIATIVE CARE IP CONSULT TO WOUND PREVENTION IP CONSULT TO ENDOVASCULAR NEUROLOGY Initial Assessment: Chart reviewed. Patient from home with spouse, admitted for stroke. Spoke with patient at bedside. Introduced myself and role. Discussed discharge planning. Patient has insurance and PCP listed on EHR. Patient hopes to go home with spouse. Patient would have transportation home if able to go home at discharge. CM will follow for discharge planning. Discharge Planning/Barrier: 07/30/24 1404 Rapid Rounds Attendance Extender Planned Discharge Disposition Home If assistance needed, confirmed caregiver ready, willing and able to care for patient at discharge Yes Confirmed with Lily (Spouse) [phone] Today we still await Clinical stability;Car Bracer recommendations (comment) Additional Comments: PT/OT pending Discharge Plan: Home. Case management will continue to follow for discharge planning. Length of Stay (Days): 1 GMLOS: No GMLOS [facility] Consult note* Monika Farris, IT PORTFOLIO MANAGER - ARCHITECTURAL DESIGNER - 07/30/2024 11:18 AM EDT Consults History Of Present Illness Duy Meredith is a 88 y.o. male presenting to outside hospital with several days of left arm and hand numbness and slurred speech. Imaging obtained during evaluation identified right small right SAH. Nohistory of trauma. Past Medical History He has a past medical history of CAD (coronary artery disease), Hyperlipidemia, ICD (implantable cardioverter-defibrillator), single, in situ (12/29/2011), LV dysfunction, Old [place] (myocardial infarction) (2011), and Presence of stent in LAD coronary artery. Surgical History He has a past surgical history that includes Cardiac defibrillator placement; Cardiac procedure; and Coronary angioplasty. Social History He reports that he has never smoked. He has never used smokeless tobacco. He reports current alcohol use. He reports that he does not use drugs. Allergies Patient has no known allergies. Medications Prescriptions Prior to Admission[1] Review of Systems Constitutional: Positive for activity change. Neurological: Positive for numbness and headaches. All other systems reviewed and are negative. Neurological Exam Mental Status Oriented to person, place, time and situation. Speech is normal. Language is fluent with no aphasia. Attention and concentration are normal. Cranial Nerves CN II: Visual acuity is normal. Visual bass full to confrontation. CN III, IV, : Extraocular movements intact bilaterally. Normal lids and orbits bilaterally. Pupils equal round and reactive to light bilaterally. CN V: Facial sensation is normal. CN VII: Full and symmetric facial movement. CN VIII: Hearing is normal. CN IX, X: Palate elevates symmetrically. Normal gag reflex. CN XI: Shoulder shrug strength is normal. CN XII: Tongue midline without atrophy or fasciculations. Motor The following abnormal movements were seen: Physical Exam Eyes: General: Lids are normal. Extraocular Movements: Extraocular movements intact. Pupils: Pupils are equal, round, and reactive to light. Cardiovascular: Rate and Rhythm: Regular rhythm. Comments: Pacer Psychiatric: Speech: Speech normal. Last Recorded Vitals Blood pressure 129/64, pulse 73, temperature 36.6 C (97.8 F), temperature source Temporal, resp. rate 18, height 1.676 m (5' 6), weight 68 kg (150 lb), SpO2 97%. Relevant Results FINDINGS: Acute Findings: Small amount of acute subarachnoid hemorrhage along the right central sulcus is unchanged. There is no new acute hemorrhage. Chronic Changes: Scattered patchy foci of white matter hypoattenuation, most likely mild chronic microvascular ischemic changes. Ventricles and sulci: Moderate generalized brain parenchymal volume loss with proportionate ventricular enlargement. Other: The skull, included paranasal sinuses and orbits are normal. IMPRESSION: Stable small volume acute subarachnoid hemorrhage. No new acute findings Assessment/Plan Principal Problem: Intracranial hemorrhage (HCC) SAH of unclear etiology Plan: MRI pending. Will follow for results. If no clear etiology of SAH identified can plan for diagnostic cerebral angiogram for further evaluation of any occult cerebral vascular abnormality. Further recommendations pending imaging. Pt discussed with Dr. Altman [1] Medications Prior to Admission Medication Sig Dispense Refill Last Dose/Taking aspirin 81 MG EC tablet Take 81 mg by mouth daily. carvedilol (Coreg) 6.25 MG tablet Take 1 tablet (6.25 mg) by mouth 2 times daily (with meals). 180 tablet 1 carvedilol (Coreg) 6.25 MG tablet Take 1 tablet (6.25 mg) by mouth 2 times daily (with meals). 180 tablet 0 finasteride (Proscar) 5 MG tablet Take 5 mg by mouth daily. losartan (Cozaar) 50 MG tablet Take 1 tablet (50 mg) by mouth daily. 90 tablet 1 losartan (Cozaar) 50 MG tablet Take 1 tablet (50 mg) by mouth daily. 90 tablet 3 nitroglycerin (Nitrostat) 0.[address] 0.4 mg under the tongue as needed. simvastatin (Zocor) 40 MG tablet Take 1 tablet (40 mg) by mouth Nightly. 90 tablet 1 simvastatin (Zocor) 40 MG tablet Take 1 tablet (40 mg) by mouth Nightly. 90 tablet 0 spironolactone (Aldactone) 25 MG tablet Take 0.5 tablets (12.5 mg) by mouth daily. 45 tablet 1 spironolactone (Aldactone) 25 MG tablet Take 0.5 tablets (12.5 mg) by mouth daily. 45 tablet 1 tamsulosin (Flomax) 0.4 MG 24 hr capsule Take 0.4 mg by mouth daily. Cosigned by Juan Altman MD at 07/30/2024 12:10 PM EDT [id number] Consult note* YVETTE Douglass CNP - 07/30/2024 11:18 AM EDT Consults History Of Present Illness Duy Meredith is a 88 y.o. male presenting to outside hospital with several days of left arm and hand numbness and slurred speech. Imaging obtained during evaluation identified right small right SAH. Nohistory of trauma. Past Medical History He has a past medical history of CAD (coronary artery disease), Hyperlipidemia, ICD (implantable cardioverter-defibrillator), single, in situ (12/29/2011), LV dysfunction, Old [place] (myocardial infarction) (2012), and Presence of stent in LAD coronary artery. Surgical History He has a past surgical history that includes Cardiac defibrillator placement; Cardiac procedure; and Coronary angioplasty. Social History He reports that he has never smoked. He has never used smokeless tobacco. He reports current alcohol use. He reports that he does not use drugs. Allergies Patient has no known allergies. Medications Prescriptions Prior to Admission[1] Review of Systems Constitutional: Positive for activity change. Neurological: Positive for numbness and headaches. All other systems reviewed and are negative. Neurological Exam Mental Status Oriented to person, place, time and situation. Speech is normal. Language is fluent with no aphasia. Attention and concentration are normal. Cranial Nerves CN II: Visual acuity is normal. Visual bass full to confrontation. CN III, IV, : Extraocular movements intact bilaterally. Normal lids and orbits bilaterally. Pupils equal round and reactive to light bilaterally. CN V: Facial sensation is normal. CN VII: Full and symmetric facial movement. CN VIII: Hearing is normal. CN IX, X: Palate elevates symmetrically. Normal gag reflex. CN XI: Shoulder shrug strength is normal. CN XII: Tongue midline without atrophy or fasciculations. Motor The following abnormal movements were seen: Physical Exam Eyes: General: Lids are normal. Extraocular Movements: Extraocular movements intact. Pupils: Pupils are equal, round, and reactive to light. Cardiovascular: Rate and Rhythm: Regular rhythm. Comments: Pacer Psychiatric: Speech: Speech normal. Last Recorded Vitals Blood pressure 129/64, pulse 73, temperature 36.6 C (97.8 F), temperature source Temporal, resp. rate 18, height 1.676 m (5' 6), weight 68 kg (150 lb), SpO2 97%. Relevant Results FINDINGS: Acute Findings: Small amount of acute subarachnoid hemorrhage along the right central sulcus is unchanged. There is no new acute hemorrhage. Chronic Changes: Scattered patchy foci of white matter hypoattenuation, most likely mild chronic microvascular ischemic changes. Ventricles and sulci: Moderate generalized brain parenchymal volume loss with proportionate ventricular enlargement. Other: The skull, included paranasal sinuses and orbits are normal. IMPRESSION: Stable small volume acute subarachnoid hemorrhage. No new acute findings Assessment/Plan Principal Problem: Intracranial hemorrhage (HCC) SAH of unclear etiology Plan: MRI pending. Will follow for results. If no clear etiology of SAH identified can plan for diagnostic cerebral angiogram for further evaluation of any occult cerebral vascular abnormality. Further recommendations pending imaging. Pt discussed with Dr. Altman [1] Medications Prior to Admission Medication Sig Dispense Refill Last Dose/Taking aspirin 81 MG EC tablet Take 81 mg by mouth daily. carvedilol (Coreg) 6.25 MG tablet Take 1 tablet (6.25 mg) by mouth 2 times daily (with meals). 180 tablet 1 carvedilol (Coreg) 6.25 MG tablet Take 1 tablet (6.25 mg) by mouth 2 times daily (with meals). 180 tablet 0 finasteride (Proscar) 5 MG tablet Take 5 mg by mouth daily. losartan (Cozaar) 50 MG tablet Take 1 tablet (50 mg) by mouth daily. 90 tablet 1 losartan (Cozaar) 50 MG tablet Take 1 tablet (50 mg) by mouth daily. 90 tablet 3 nitroglycerin (Nitrostat) 0.[address] 0.4 mg under the tongue as needed. simvastatin (Zocor) 40 MG tablet Take 1 tablet (40 mg) by mouth Nightly. 90 tablet 1 simvastatin (Zocor) 40 MG tablet Take 1 tablet (40 mg) by mouth Nightly. 90 tablet 0 spironolactone (Aldactone) 25 MG tablet Take 0.5 tablets (12.5 mg) by mouth daily. 45 tablet 1 spironolactone (Aldactone) 25 MG tablet Take 0.5 tablets (12.5 mg) by mouth daily. 45 tablet 1 tamsulosin (Flomax) 0.4 MG 24 hr capsule Take 0.4 mg by mouth daily. Cosigned by Juan Altman MD at 07/30/2024 12:10 PM EDT * Zhou Delong DO - 07/30/2024 9:24 AM EDTAssociated Order(s): IP CONSULT TO PALLIATIVE CARE Images from the original note were not included. Palliative Care Initial Consult Chief Complaint: Efraín Meredith is a 88 y.o. male with chief complaint of CVA. Palliative Care will follow peripherally, please contact on-call provider for urgent needs Assessment/Plan Goals of care Efraín Meredith retains capacity for medical decision-making -legal surrogate decision maker is , Lily ( ) -pt having rapid improvement, instructions to follow up with outpatient palliative clinic upon discharge -goals of care include: 1) improve symptoms 2) return home R intraparenchymal hemorrhage H/o TIA With concurrent intermittent LUE symptoms, although since admission states have continued to improve. Denies any episodes of LUE numbness/weakness today. - Given further history from pt/, may have occurred incident to jump from tractor in which pt landed on their feet but had a precipitous drop to landing. - They also note recurring minor head trauma unrelated to falls (regularly bumping into things withhis head) - Mgmt per neurocrit; awaiting MRI, EEG - Tolerating regular diet without issue - PT/OT recommending discharge home with no further follow-up; pt was independent on ADLs before admission and looks to be independent thereafter. CAD s/p stenting for OH HFrEF s/p ICD - Has ICD. - Home meds per primary Palliative Care Encounter -Code Status: Full Code - Ongoing counseling of patient and family regarding diagnoses of CHF and Stroke, Determining prognosis in serious illness of CHF and Stroke - assessed patient or surrogate's understanding of medical condition, addressed goals of care pertinent to the condition and communicated this to the medical team Discharge planning: Not ready for discharge due to ongoing medical work- up/critical illness Patient meets criteria for general inpatient hospice care: No Palliative Care IDT members involved: None Discussed the plan of care with the other interdisciplinary team (IDT) members of the Palliative Care and Hospice teams and Patient, Family, and Floor Nurse. Subjective: History: Efraín Meredith is a 88 y.o. male who presented to the ED with 5 days of intermittent LUE numbness. H/o HTN, HLD, OH s/p stenting, TIA, HFrEF s/p ICD (last available EF 25%), BPH. 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 also reported slurred speech, so had him comein for evaluation at OSH. VSS but imaging showing intraparenchymal hemorrhage without midline shift. Was then transferred to [facility] for neurocritical care. Arrived here 07/29 in the afternoon, exam notable for NIH 4 (drift, ataxia of LUE, dysarthria, LUQ visual deficit. Imaging was repeated as outside imaging unavailable. denies inciting fall, but both she and pt state he was hopping out of his t ractor and had a hard landing on his feet in the days prior to admission. Palliative is consulted for C clarification; currently listed as full code. Subjective/Events Pt seen at bedside, also witnessed ambulating with PT around the unit and doing it well. Both pt and corroborated above story and note he has improved significantly from admission in terms of arm sensation/strength. Pain Assessment No pain Palliative Care Assessments: Goals of care: Continue Current Management, Preserve [place]/Autonomy/Control, Improve uncontrolled symptoms, and Remain at Home Advanced Directives: No Known Advance Directive Functional Assessment: PPS 70% amb reduced; can't do normal work/some disease; full self care; normal or reduced intake; full LOC Prognosis: depends upon goals of care and uncertain at this time Spiritual Assessment: No spiritual distress identified Bereavement and Grief: To Be Determined PDMP/OARRS Reviewed: Yes-reviewed Social history: Marital status: Children: 1 adult child(ladonna) Living status: with spouse Work history: unknown [place] status: No Anglican laureano: Christianity ROS: See palliative care ROS/ESAS below; All other systems were reviewed and are negative. Mccoy Symptom Assessment Score Mccoy Score Pain Score (if non-verbal, add .FLACC below) 0 Tiredness Score 0 Nausea Score 0 Depression Score 0 Anxiety Score 0 Drowsiness Score 0 Anorexia Score (0= eating well, 10= not eating) 0 Wellbeing Score (10= worst sense of well-being) 0 Constipation 0 Dyspnea Score (0= no shortness of breath) 0 Family Meeting: Participants: patient and spouse Family meeting was held to discuss:Discharge Plan Medical History[1] Surgical History[2] Family History[3] Unable to obtain family history due to N/A- family history available Allergies[4] Objective: BP 115/62 Pulse 88 Temp 36.6 C (97.8 F) (Temporal) Resp 24 SpO2 94% Physical Exam Vitals reviewed. Constitutional: General: He is not in acute distress. Appearance: He is not ill-appearing or toxic-appearing. HENT: Head: Normocephalic. Comments: Scarring and patchy skin hypopigmentation of scalp Right Ear: External ear normal. Left Ear: External ear normal. Nose: Nose normal. Mouth/Throat: Mouth: Mucous membranes are moist. Eyes: General: Right eye: No discharge. Left eye: No discharge. Extraocular Movements: Extraocular movements intact. Cardiovascular: Rate and Rhythm: Normal rate and regular rhythm. Pulmonary: Effort: Pulmonary effort is normal. No respiratory distress. Abdominal: General: There is no distension. Musculoskeletal: General: Normal range of motion. Cervical back: Normal range of motion and neck supple. Skin: General: Skin is warm and dry. Neurological: General: No focal deficit present. Mental Status: He is alert and oriented to person, place, and time. Mental status is at baseline. Cranial Nerves: No dysarthria or facial asymmetry. Motor: Pronator drift (very mild of LUE) present. No weakness or tremor. Gait: Gait is intact. 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 Mood and Affect: Mood and affect normal. Speech: Speech normal. Behavior: Behavior normal. Behavior is cooperative. Medication information: 24-hour PRN meds received: MAR reviewed Results/Verification of Data Review Objective data reviewed (must include dates reviewed for labs, imaging reports and other specialty notes): 07/29 NCC H&P/transfer request encounter, 07/30 PT/ST notes, VS, MAR Data in Support of Terminal Illness: Is patient hospice appropriate? No Transition Note Initiated: yes Zhou Delong DO [1] Past Medical History: Diagnosis Date CAD (coronary artery disease) Hyperlipidemia ICD (implantable cardioverter-defibrillator), single, in situ 12/29/2011 LV dysfunction Old OH (myocardial infarction) 2011 Anterior Presence of stent in LAD coronary artery 07/05/02 : AYLIN to LAD, 10/18/11: AYLIN to ISS LAD [2] Past Surgical History: Procedure Laterality Date CARDIAC DEFIBRILLATOR PLACEMENT CARDIAC PROCEDURE CORONARY ANGIOPLASTY [3] Family History Problem Relation Name Age of Onset Heart failure Mother Heart Surgery Mother Pacemaker Brother [4] No Known Allergies Cosigned by Marly Chua MD at 07/30/2024 4:01 PM EDT * Araseli Saunders RN - 07/30/2024 8:19 AM EDTAssociated Order(s): IP CONSULT TO CASE MANAGEMENT Acknowledges case management consult, will follow for discharge planning. * YVETTE Segura CNP - 07/30/2024 8:14 AM EDTAssociated Order(s): IP CONSULT TO NEUROLOGY; IP CONSULT TO NEUROLOGY CONSULT NOTE: NEUROCRITICAL CARE Patient Name: Efraín Meredith Patient : 1935 Date of Admission: 07/29/2024 HPI: This is a 88 y.o. year old R handed man with a PMH of HTN, HLD, CAD s/p stent, HFrEF (25%), s/p ICD, TIA who presented to [facility] from OSH on 07/29 with a chief complaint of intermittent slurred speech, LUE numbness x5 days. CT head with R cortical SAH. Transferred to [facility] T2. CT head repeated, stable. CTA head/neck without vascular abnormality. Denies any significant recent trauma. states he bumps his head a lot but no LOC. Medical History[1] Surgical History[2] Family History[3] Allergies[4] Prior to Admission medications Medication Sig Start Date End Date Taking? Authorizing Provider aspirin 81 MG EC tablet Take 81 mg by mouth daily. Historical Provider, carvedilol (Coreg) 6.25 MG tablet Take 1 tablet (6.25 mg) by mouth 2 times daily (with meals). 02/23/24 YVETTE Redmond CNP carvedilol (Coreg) 6.25 MG tablet Take 1 tablet (6.25 mg) by mouth 2 times daily (with meals). 06/04/24 Zhou Calle MD finasteride (Proscar) 5 MG tablet Take 5 mg by mouth daily. 03/14/24 Historical Provider, losartan (Cozaar) 50 MG tablet Take 1 tablet (50 mg) by mouth daily. 02/23/24 YVETTE Redmond CNP losartan (Cozaar) 50 MG tablet Take 1 tablet (50 mg) by mouth daily. 06/08/24 YVETTE Siddiqui CNP nitroglycerin (Nitrostat) 0.[address] 0.4 mg under the tongue as needed. 11/19/16 Historical Provider, simvastatin (Zocor) 40 MG tablet Take 1 tablet (40 mg) by mouth Nightly. 02/23/24 YVETTE Redmond CNP simvastatin (Zocor) 40 MG tablet Take 1 tablet (40 mg) by mouth Nightly. 06/04/24 Zhou Calle MD spironolactone (Aldactone) 25 MG tablet Take 0.5 tablets (12.5 mg) by mouth daily. 02/23/24 YVETTE Redmond CNP spironolactone (Aldactone) 25 MG tablet Take 0.5 tablets (12.5 mg) by mouth daily. 06/08/24 YVETTE Nair CNP tamsulosin (Flomax) 0.4 MG 24 hr capsule Take 0.4 mg by mouth daily. 03/20/24 Historical Provider, Review of Systems + LUE numbness at times Physical Examination: Patient Vitals for the past 8 hrs: BP Temp Temp src Pulse Resp SpO2 07/30/24 0746 -- 36.6 C (97.8 F) Temporal 69 22 93 % 07/30/24 0700 130/71 -- -- 74 19 94 % 07/30/24 0600 101/68 -- -- 64 19 95 % 07/30/24 0500 117/73 -- -- 76 17 95 % 07/30/24 0400 113/68 36.2 C (97.1 F) Temporal 69 (!) 26 95 % 07/30/24 0300 101/67 -- -- 64 21 93 % 07/30/24 0203 117/63 -- -- 70 17 94 % 07/30/24 0200 -- -- -- 74 23 98 % 07/30/24 0100 109/68 -- -- 70 15 96 % I/O last 3 completed shifts: In: 850.2 [I.V.:850.2] Out: 1650 [Urine:1650] General Physical Examination: General: Awake HEENT:Normocephalic, atraumaticl CV: S1+S2, RRR, no MRG. Pulm:CTA b/l, unlabored Abdomen: Soft NT/ND. BS + Skin: Intact without ulcers, breakdowns or discoloration Extremities: normal with no edema or cyanosis Orthopedic limitation; No Pulses: Intact peripherally Carotid auscultation :No bruits Neurological Examination: Higher Functions: Mental Status Exam: Level of Alertness:Awake Orientation: Normal to self, time, place Memory: Normal Fund of Knowledge: Normal Language: Normal Dysarthria not present Cranial Nerves: -II Visual acuity: normal -II Visual bass: normal -III Pupils (~ 3 mm OD, 3 mm OU) equal, round, reactive to light -III-IV- Extraocular Movements: intact -Nystagmus not present -Saccades and pursuits normal -V Facial sensation: intact Corneal's Intact bilateral -VII Facial strength: intact -VIII Hearing: intact -IX-X- Gag reflex present -X Palate:intact -XI Shoulder shrug: intact -XII Tongue movement: normal Funduscopic Exam: normal, no edema or exudates both eyes Motor Examination: Tone after evaluation of 4 limbs, the following findings applied: Normal -Bulk: normal -Muscle Stretchafter evaluation of all limbs, and axial musculature the following findings applied: Drift: absent . -Reflexes: after evaluation of 4 limbs, the following findings applied ; normal all limbs -Plantar responce: Flexor bilaterally Sensory Intact to light touch, pain / temperature, proprioception, Coordination: Arms Normal finger to nose Legs Intact heel knee tena testing Tremors not present Gait abnormal, patient unable to walk due to acute circumstances / bedrest / safety concerns NIHSS 0 Cardiac testing: EKG: Sinus rhythm Inferior infarct, old Abnormal lateral Q waves Probable anterior infarct, age indeterminate Radiology Personal review: CT Head 07/29/24: Subarachnoid hemorrhage within the superior right frontal lobe, just anterior to the central sulcus. CT Head 07/30/24: Stable small volume acute subarachnoid hemorrhage. No new acute findings CTA head/neck 07/29/24: The intracranial right vertebral artery is faintly opacified and only a few thin and diminutive portions of the left intracranial vertebral artery are opacified. Only the thin and diminutive distal basilar artery is opacified. ASSESSMENT / PLAN / SUGGESTIONS : R cortical SAH - Etiology: Ongoing work-up. CTA head/neck negative for vascular abnormality - ICH score: 1 - SBP goal <140 - MRV, MRI brain pending if pacer compatible. If not, obtain CT head tomorrow AM - Endovascular consult for DSA - Spot EEG - Hold antiplatelets, anticoagulation L sided numbness - Due to above - PT/OT HTN - Goals as above HFrEF s/p ICD/CAD s/p stent - TTE updated at bedside. I spent a total of 40 minutes of independent critical care time for this neurocritically ill patient who is at high risk for both clinical and neurological decline due to further brain injury, which can occur unpredictably and rapidly cause multi-organ dysfunction. In that time I reviewed the chart including MAR, labs, neuroimaging, other imaging studies and discussed my diagnostic impression andpatient's plan of care with the consulting team and patient's family members/surrogate decision makers (in cases where the patient is incapacitated and unable to participate in their own care). An additional 10 minutes was spent discussing assessment/plan with Dr. Faulkner. [1] Past Medical History: Diagnosis Date CAD (coronary artery disease) Hyperlipidemia ICD (implantable cardioverter-defibrillator), single, in situ 12/29/2011 LV dysfunction Old OH (myocardial infarction) 2011 Anterior Presence of stent in LAD coronary artery 07/05/02 : AYLIN to LAD, 10/18/11: AYLIN to ISS LAD [2] Past Surgical History: Procedure Laterality Date CARDIAC DEFIBRILLATOR PLACEMENT CARDIAC PROCEDURE CORONARY ANGIOPLASTY [3] Family History Problem Relation Name Age of Onset Heart failure Mother Heart Surgery Mother Pacemaker Brother [4] No Known Allergies Cosigned by Yuliana Faulkner MD at 07/30/2024 4:52 PM EDT documented in this [facility]06-16-2025 Consult note* Zhou Delong - 07/30/2024 9:24 AM EDTAssociated Order(s): IP CONSULT TO PALLIATIVE CARE Images from the original note were not included. Palliative Care Initial Consult Chief Complaint: Efraín Meredith is a 88 y.o. male with chief complaint of CVA. Palliative Care will follow peripherally, please contact on-call provider for urgent needs Assessment/Plan Goals of care Efraín Meredith retains capacity for medical decision-making -legal surrogate decision maker is , Lily ( ) -pt having rapid improvement, instructions to follow up with outpatient palliative clinic upon discharge -goals of care include: 1) improve symptoms 2) return home R intraparenchymal hemorrhage H/o TIA With concurrent intermittent LUE symptoms, although since admission states have continued to improve. Denies any episodes of LUE numbness/weakness today. - Given further history from pt/, may have occurred incident to jump from tractor in which pt landed on their feet but had a precipitous drop to landing. - They also note recurring minor head trauma unrelated to falls (regularly bumping into things withhis head) - Mgmt per neurocrit; awaiting MRI, EEG - Tolerating regular diet without issue - PT/OT recommending discharge home with no further follow-up; pt was independent on ADLs before admission and looks to be independent thereafter. CAD s/p stenting for OH HFrEF s/p ICD - Has ICD. - Home meds per primary Palliative Care Encounter -Code Status: Full Code - Ongoing counseling of patient and family regarding diagnoses of CHF and Stroke, Determining prognosis in serious illness of CHF and Stroke - assessed patient or surrogate's understanding of medical condition, addressed goals of care pertinent to the condition and communicated this to the medical team Discharge planning: Not ready for discharge due to ongoing medical work- up/critical illness Patient meets criteria for general inpatient hospice care: No Palliative Care IDT members involved: None Discussed the plan of care with the other interdisciplinary team (IDT) members of the Palliative Care and Hospice teams and Patient, Family, and Floor Nurse. Subjective: History: Efraín Meredith is a 88 y.o. male who presented to the ED with 5 days of intermittent LUE numbness. H/o HTN, HLD, OH s/p stenting, TIA, HFrEF s/p ICD (last available EF 25%), BPH. 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 also reported slurred speech, so had him comein for evaluation at OSH. VSS but imaging showing intraparenchymal hemorrhage without midline shift. Was then transferred to [facility] for neurocritical care. Arrived here 07/29 in the afternoon, exam notable for NIH 4 (drift, ataxia of LUE, dysarthria, LUQ visual deficit. Imaging was repeated as outside imaging unavailable. denies inciting fall, but both she and pt state he was hopping out of his t ractor and had a hard landing on his feet in the days prior to admission. Palliative is consulted for GOC clarification; currently listed as full code. Subjective/Events Pt seen at bedside, also witnessed ambulating with PT around the unit and doing it well. Both pt and corroborated above story and note he has improved significantly from admission in terms of arm sensation/strength. Pain Assessment No pain Palliative Care Assessments: Goals of care: Continue Current Management, Preserve [place]/Autonomy/Control, Improve uncontrolled symptoms, and Remain at Home Advanced Directives: No Known Advance Directive Functional Assessment: PPS 70% amb reduced; can't do normal work/some disease; full self care; normal or reduced intake; full LOC Prognosis: depends upon goals of care and uncertain at this time Spiritual Assessment: No spiritual distress identified Bereavement and Grief: To Be Determined PDMP/OARRS Reviewed: Yes-reviewed Social history: Marital status: Children: 1 adult child(ladonna) Living status: with spouse Work history: unknown status: No Anglican laureano: Christianity ROS: See palliative care ROS/ESAS below; All other systems were reviewed and are negative. Mccoy Symptom Assessment Score Mccoy Score Pain Score (if non-verbal, add .FLACC below) 0 Tiredness Score 0 Nausea Score 0 Depression Score 0 Anxiety Score 0 Drowsiness Score 0 Anorexia Score (0= eating well, 10= not eating) 0 Wellbeing Score (10= worst sense of well-being) 0 Constipation 0 Dyspnea Score (0= no shortness of breath) 0 Family Meeting: Participants: patient and spouse Family meeting was held to discuss:Discharge Plan Medical History[1] Surgical History[2] Family History[3] Unable to obtain family history due to N/A- family history available Allergies[4] Objective: BP 115/62 Pulse 88 Temp 36.6 C (97.8 F) (Temporal) Resp 24 SpO2 94% Physical Exam Vitals reviewed. Constitutional: General: He is not in acute distress. Appearance: He is not ill-appearing or toxic-appearing. HENT: Head: Normocephalic. Comments: Scarring and patchy skin hypopigmentation of scalp Right Ear: External ear normal. Left Ear: External ear normal. Nose: Nose normal. Mouth/Throat: Mouth: Mucous membranes are moist. Eyes: General: Right eye: No discharge. Left eye: No discharge. Extraocular Movements: Extraocular movements intact. Cardiovascular: Rate and Rhythm: Normal rate and regular rhythm. Pulmonary: Effort: Pulmonary effort is normal. No respiratory distress. Abdominal: General: There is no distension. Musculoskeletal: General: Normal range of motion. Cervical back: Normal range of motion and neck supple. Skin: General: Skin is warm and dry. Neurological: General: No focal deficit present. Mental Status: He is alert and oriented to person, place, and time. Mental status is at baseline. Cranial Nerves: No dysarthria or facial asymmetry. Motor: Pronator drift (very mild of LUE) present. No weakness or tremor. Gait: Gait is intact. 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 Mood and Affect: Mood and affect normal. Speech: Speech normal. Behavior: Behavior normal. Behavior is cooperative. Medication information: 24-hour PRN meds received: MAR reviewed Results/Verification of Data Review Objective data reviewed (must include dates reviewed for labs, imaging reports and other specialty notes): 07/29 NCC H&P/transfer request encounter, 07/30 PT/ST notes, VS, MAR Data in Support of Terminal Illness: Is patient hospice appropriate? No Transition Note Initiated: yes Zhou Delong DO [1] Past Medical History: Diagnosis Date CAD (coronary artery disease) Hyperlipidemia ICD (implantable cardioverter-defibrillator), single, in situ 12/29/2011 LV dysfunction Old OH (myocardial infarction) 2012 Anterior Presence of stent in LAD coronary artery 07/05/02 : AYLIN to LAD, 10/18/11: AYLIN to ISS LAD [2] Past Surgical History: Procedure Laterality Date CARDIAC DEFIBRILLATOR PLACEMENT CARDIAC PROCEDURE CORONARY ANGIOPLASTY [3] Family History Problem Relation Name Age of Onset Heart failure Mother Heart Surgery Mother Pacemaker Brother [4] No Known Allergies Cosigned by Marly Chua MD at 07/30/2024 4:01 PM EDT [facility] [employer] Work Phone: [phone] 318-881306-16-2025 Consult note* Araseli Saunders RN - 07/30/2024 8:19 AM EDTAssociated Order(s): IP CONSULT TO CASE MANAGEMENT Acknowledges case management consult, will follow for discharge planning. [facility] [id number] Consult note* Radu Arrington, IT PORTFOLIO MANAGER - ARCHITECTURAL DESIGNER - 07/30/2024 8:14 AM EDTAssociated Order(s): IP CONSULT TO NEUROLOGY; IP CONSULT TO NEUROLOGY CONSULT NOTE: NEUROCRITICAL CARE Patient Name: Efraín Meredith Patient : 1935 Date of Admission: 07/29/2024 HPI: This is a 88 y.o. year old R handed man with a PMH of HTN, HLD, CAD s/p stent, HFrEF (25%), s/p ICD, TIA who presented to [facility] from OSH on 07/29 with a chief complaint of intermittent slurred speech, LUE numbness x5 days. CT head with R cortical SAH. Transferred to [facility] T2. CT head repeated, stable. CTA head/neck without vascular abnormality. Denies any significant recent trauma. states he bumps his head a lot but no LOC. Medical History[1] Surgical History[2] Family History[3] Allergies[4] Prior to Admission medications Medication Sig Start Date End Date Taking? Authorizing Provider aspirin 81 MG EC tablet Take 81 mg by mouth daily. Historical Provider, carvedilol (Coreg) 6.25 MG tablet Take 1 tablet (6.25 mg) by mouth 2 times daily (with meals). 02/23/24 YVETTE Redmond CNP carvedilol (Coreg) 6.25 MG tablet Take 1 tablet (6.25 mg) by mouth 2 times daily (with meals). 06/04/24 Zhou Calle MD finasteride (Proscar) 5 MG tablet Take 5 mg by mouth daily. 03/14/24 Historical Provider, losartan (Cozaar) 50 MG tablet Take 1 tablet (50 mg) by mouth daily. 02/23/24 YVETTE Redmond CNP losartan (Cozaar) 50 MG tablet Take 1 tablet (50 mg) by mouth daily. 06/08/24 YVETTE Siddiqui CNP nitroglycerin (Nitrostat) 0.[address] 0.4 mg under the tongue as needed. 11/19/16 Historical Provider, simvastatin (Zocor) 40 MG tablet Take 1 tablet (40 mg) by mouth Nightly. 02/23/24 YVETTE Redmond CNP simvastatin (Zocor) 40 MG tablet Take 1 tablet (40 mg) by mouth Nightly. 06/04/24 Zhou Calle MD spironolactone (Aldactone) 25 MG tablet Take 0.5 tablets (12.5 mg) by mouth daily. 02/23/24 YVETTE Redmond CNP spironolactone (Aldactone) 25 MG tablet Take 0.5 tablets (12.5 mg) by mouth daily. 06/08/24 YVETTE Nair CNP tamsulosin (Flomax) 0.4 MG 24 hr capsule Take 0.4 mg by mouth daily. 03/20/24 Historical Provider, Review of Systems + LUE numbness at times Physical Examination: Patient Vitals for the past 8 hrs: BP Temp Temp src Pulse Resp SpO2 07/30/24 0746 -- 36.6 C (97.8 F) Temporal 69 22 93 % 07/30/24 0700 130/71 -- -- 74 19 94 % 07/30/24 0600 101/68 -- -- 64 19 95 % 07/30/24 0500 117/73 -- -- 76 17 95 % 07/30/24 0400 113/68 36.2 C (97.1 F) Temporal 69 (!) 26 95 % 07/30/24 0300 101/67 -- -- 64 21 93 % 07/30/24 0203 117/63 -- -- 70 17 94 % 07/30/24 0200 -- -- -- 74 23 98 % 07/30/24 0100 109/68 -- -- 70 15 96 % I/O last 3 completed shifts: In: 850.2 [I.V.:850.2] Out: 1650 [Urine:1650] General Physical Examination: General: Awake HEENT:Normocephalic, atraumaticl CV: S1+S2, RRR, no MRG. Pulm:CTA b/l, unlabored Abdomen: Soft NT/ND. BS + Skin: Intact without ulcers, breakdowns or discoloration Extremities: normal with no edema or cyanosis Orthopedic limitation; No Pulses: Intact peripherally Carotid auscultation :No bruits Neurological Examination: Higher Functions: Mental Status Exam: Level of Alertness:Awake Orientation: Normal to self, time, place Memory: Normal Fund of Knowledge: Normal Language: Normal Dysarthria not present Cranial Nerves: -II Visual acuity: normal -II Visual bass: normal -III Pupils (~ 3 mm OD, 3 mm OU) equal, round, reactive to light -III-IV- Extraocular Movements: intact -Nystagmus not present -Saccades and pursuits normal -V Facial sensation: intact Corneal's Intact bilateral -VII Facial strength: intact -VIII Hearing: intact -IX-X- Gag reflex present -X Palate:intact -XI Shoulder shrug: intact -XII Tongue movement: normal Funduscopic Exam: normal, no edema or exudates both eyes Motor Examination: Tone after evaluation of 4 limbs, the following findings applied: Normal -Bulk: normal -Muscle Stretchafter evaluation of all limbs, and axial musculature the following findings applied: Drift: absent . -Reflexes: after evaluation of 4 limbs, the following findings applied ; normal all limbs -Plantar responce: Flexor bilaterally Sensory Intact to light touch, pain / temperature, proprioception, Coordination: Arms Normal finger to nose Legs Intact heel knee tena testing Tremors not present Gait abnormal, patient unable to walk due to acute circumstances / bedrest / safety concerns NIHSS 0 Cardiac testing: EKG: Sinus rhythm Inferior infarct, old Abnormal lateral Q waves Probable anterior infarct, age indeterminate Radiology Personal review: CT Head 07/29/24: Subarachnoid hemorrhage within the superior right frontal lobe, just anterior to the central sulcus. CT Head 07/30/24: Stable small volume acute subarachnoid hemorrhage. No new acute findings CTA head/neck 07/29/24: The intracranial right vertebral artery is faintly opacified and only a few thin and diminutive portions of the left intracranial vertebral artery are opacified. Only the thin and diminutive distal basilar artery is opacified. ASSESSMENT / PLAN / SUGGESTIONS : R cortical SAH - Etiology: Ongoing work-up. CTA head/neck negative for vascular abnormality - ICH score: 1 - SBP goal <140 - MRV, MRI brain pending if pacer compatible. If not, obtain CT head tomorrow AM - Endovascular consult for DSA - Spot EEG - Hold antiplatelets, anticoagulation L sided numbness - Due to above - PT/OT HTN - Goals as above HFrEF s/p ICD/CAD s/p stent - TTE updated at bedside. I spent a total of 40 minutes of independent critical care time for this neurocritically ill patient who is at high risk for both clinical and neurological decline due to further brain injury, which can occur unpredictably and rapidly cause multi-organ dysfunction. In that time I reviewed the chart including MAR, labs, neuroimaging, other imaging studies and discussed my diagnostic impression andpatient's plan of care with the consulting team and patient's family members/surrogate decision makers (in cases where the patient is incapacitated and unable to participate in their own care). An additional 10 minutes was spent discussing assessment/plan with Dr. Faulkner. [1] Past Medical History: Diagnosis Date CAD (coronary artery disease) Hyperlipidemia ICD (implantable cardioverter-defibrillator), single, in situ 12/29/2011 LV dysfunction Old OH (myocardial infarction) 2012 Anterior Presence of stent in LAD coronary artery 07/05/02 : AYLIN to LAD, 10/18/11: AYLNI to ISS LAD [2] Past Surgical History: Procedure Laterality Date CARDIAC DEFIBRILLATOR PLACEMENT CARDIAC PROCEDURE CORONARY ANGIOPLASTY [3] Family History Problem Relation Name Age of Onset Heart failure Mother Heart Surgery Mother Pacemaker Brother [4] No Known Allergies Cosigned by Yuliana Faulkner MD at 07/30/2024 4:52 PM EDT [id number] NoteSpeech-Language Pathology Patient passed the Nursing Swallowing Screening. As per stroke policy, no formal dysphagia evaluation is required. Completed speech orders.[facility]06-15-2025 instrumentation manager Note* Significant Event - Demetri Quinonez DO - 07/29/2024 6:26 PM EDT NCC Called about patient admission. 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 No trauma. No anticoagulation History. NIHSS 4 per primary team. Non aneurysmal, nontraumatic cortical SAH - MRI and MRV - SBP 130-150mmHg - Routine EEG Demetri Quinonez DO [id number] History and physical note* YVETTE Hammer CNP - 07/29/2024 4:22 PM EDT Images from the original note were not included. Internal Medicine: MICU Initial History and Physical Name: Efraín Meredith : 1935(88 y.o.) Date: 07/29/24 Attending: Dr. Heather Morton Subjective: Chief Complaint: L arm and hand numbness HPI: Patient is a 88 y/o male with a PMHx of HTN, HLD, CAD c/b OH s/p stent, CHF (EF 25% in 2018) s/p ICD, TIA, BPH. Presented to [place] ED after intermittent LUE numbness x5 days. It would resolve on its own but had started to progress in duration when it did occur. felt that speech was slurred and encouraged him to come in. VSS on arrival. Lab work significant for WBC 11.2, NAGMA (bicarb 19.8, AG 12), and trop 17. CTH showed intraparenchymal hemorrhage in R postcentral gyrus. CTA neg. Transferred to [place] [id number] ICU for further ICH management. ICH 1. Upon arrival, VSS stable. NIH 4 for LUE drift, LUE ataxia, dysarthria, bilateral LUQ visual deficit. Taken for stat CTH and CTA since unable to access previous studies. Medical History[1] Surgical History[2] Family History[3] Social History Socioeconomic History Marital status: Spouse name: Not on file Number of children: Not on file Years of education: Not on file Highest education level: Not on file Occupational History Not on file Tobacco Use Smoking status: Never Smokeless tobacco: Never Substance and Sexual Activity Alcohol use: Yes Comment: occasional/wine or beer Drug use: No Comment: Caffeine: 1 and a half cups of coffee a day Sexual activity: Not on file Other Topics Concern Not on file Social History Narrative Not on file Social Drivers of Health Financial Resource Strain: Not on file Food Insecurity: Not on file Transportation Needs: Not on file Physical Activity: Not on file Stress: Not on file Social Connections: Not on file Intimate Partner Violence: Not on file Housing Stability: Not on file Allergies[4] Prior to Admission medications Medication Sig Start Date End Date Taking? Authorizing Provider aspirin 81 MG EC tablet Take 81 mg by mouth daily. Historical Provider, carvedilol (Coreg) 6.25 MG tablet Take 1 tablet (6.25 mg) by mouth 2 times daily (with meals). 02/23/24 Chantel Huntley APRN - RIMA carvedilol (Coreg) 6.25 MG tablet Take 1 tablet (6.25 mg) by mouth 2 times daily (with meals). 06/04/24 Zhou Calle MD finasteride (Proscar) 5 MG tablet Take 5 mg by mouth daily. 03/14/24 Historical Provider, losartan (Cozaar) 50 MG tablet Take 1 tablet (50 mg) by mouth daily. 02/23/24 YVETTE Redmond CNP losartan (Cozaar) 50 MG tablet Take 1 tablet (50 mg) by mouth daily. 06/08/24 YVETTE Siddiqui CNP nitroglycerin (Nitrostat) 0.[address] 0.4 mg under the tongue as needed. 11/19/16 Historical Provider, simvastatin (Zocor) 40 MG tablet Take 1 tablet (40 mg) by mouth Nightly. 02/23/24 YVETTE Redmond CNP simvastatin (Zocor) 40 MG tablet Take 1 tablet (40 mg) by mouth Nightly. 06/04/24 Zhou Calle MD spironolactone (Aldactone) 25 MG tablet Take 0.5 tablets (12.5 mg) by mouth daily. 02/23/24 YVETTE Redmond CNP spironolactone (Aldactone) 25 MG tablet Take 0.5 tablets (12.5 mg) by mouth daily. 06/08/24 YVETTE Nair CNP tamsulosin (Flomax) 0.4 MG 24 hr capsule Take 0.4 mg by mouth 2 times daily. 03/20/24 Historical Provider, Objective: Oxygen Delivery: VITALS: BP 137/72 (BP Location: Left arm, Patient Position: Lying) Pulse 74 Temp 36.2 C (97.2 F) (Temporal) Resp 23 SpO2 98% CURRENT PULSE OXIMETRY: SpO2: 98 % Review of Systems Constitutional: Negative for appetite change and fatigue. Respiratory: Negative for cough and shortness of breath. Cardiovascular: Negative for chest pain. Gastrointestinal: Negative for abdominal pain, constipation, diarrhea, nausea and vomiting. Musculoskeletal: Negative for neck pain. Neurological: Positive for numbness and headaches. Negative for weakness and light-headedness. Intermittent numbness of LUE but not currently having Constitutional: General Appearance [x]WDWN []Obese []Cachectic []Thin []Ill Eyes: Inspection of Pupils/Irises Pupils round and react: [x]Yes []No Sclera: []Icteric [x]Non-Icteric Inspection of Conjunctiva/Lids Conjunctiva: []Injected [x]Non-Injected Lids: [x]Intact []Lesion Present Wearing glasses, bilateral LUQ hemianopia ENT/Mouth: External Inspection of ears/nose [x] Normal [] Scar/Lesion/Mass Inspection of teeth/lips/gums Dentition: [][place] Teeth [x]Dentures Lips/Gums: [x]Intact []Lesion Present Mucosa: [x][place] [x]Moist []Dry Neck: External Appearance Overall Appearance: [x]Normal []Lesion/Mass/Crepitus Present Trachea midline: []Yes []No Thyroid []Normal []Enlarged []Tender []Mass []Absent Respiratory: Respiratory effort []Labored [x]Non-Labored [] Mechanically-Ventilated Auscultation [x]Clear []Crackles []Wheezes []Rhonchi On RA Cardiovascular: Auscultation Rate: [x]Regular []Irregular []Tachycardia []Bradycardia Rhythm: [x]Regular []Irregular Murmur: []Present [x]Absent Extremities Peripheral Edema: []Present [x]Absent Varicosities: []Present []Absent Gastrointestinal: Abdomen Palpation: [x]Soft []Firm []Tender [x]Non-Tender []Distended [x]Non-distended Mass: []Present []Absent Bowel Sounds: [x]Present []Absent Hernia: []Present []Absent Liver/Spleen: []Hepatosplenomegaly [x]Organomegaly Absent Musculoskeletal: Inspection of Digits and Nails Cyanosis: []Present [x]Absent Clubbing: []Present [x]Absent Ischemia: []Present [x]Absent Infection: []Present [x]Absent Extremities ORTEZ Equally: ([x]RUE [x]RLE [x]LUE [x]LLE) Strength/Tone: Intact and Normal ([x]RUE [x]RLE [x]LUE [x]LLE) Skin: Inspection [x]Normal []Rash []Lesion []Ulcer Palpation [x]Warm []Cool [x]Dry []Clammy []Nodules []Induration []Skin-tightening Cap-Refill: [x] <3 sec [] >3 seconds (delayed) Neurologic: GCS EYE: 4 - Opens spontaneously GCS MOTOR: 6 - Obeys commands for movement GCS VERBAL: 5 - Oriented to person, place, time Total GCS: 15 [x] Sensation grossly intact Psych: Mental Status Alert: [x]Yes [] No Oriented: []x0 []X1 []X2 [x]x3 Mood/Affect []Normal []Flat []Agitated []Depressed []Anxious [x]Calm []Sedated []NAD NIHSS: 1a Level of consciousness: 0=alert; keenly responsive 1b. LOC questions: 0=Performs both tasks correctly 1c. LOC commands: 0=Performs both tasks correctly 2. Best Gaze: 0=normal 3. Visual: 1=Partial hemianopia 4. Facial Palsy: 0=Normal symmetric movement 5a. Motor left arm: 1=Drift, limb holds 90 (or 45) degrees but drifts down before full 10 seconds: does not hit bed 5b. Motor right arm: 0=No drift, limb holds 90 (or 45) degrees for full 10 seconds 6a. motor left le=No drift, limb holds 90 (or 45) degrees for full 10 seconds 6b Motor right le=No drift, limb holds 90 (or 45) degrees for full 10 seconds 7. Limb Ataxia: 1=Present in one limb 8. Sensory: 0=Normal; no sensory loss 9. Best Language: 0=No aphasia, normal 10. Dysarthria: 1=Mild to moderate, patient slurs at least some words and at worst, can be understood with some difficulty 11. Extinction and Inattention: 0=No abnormality 12. Distal motor function: 0=Normal Total: 4 ICH score: GCS score at presentation: 13-15=0 points ICH volume (ABC/2 cm3): <30 cc= 0 points Intraventricular hemorrhage: No= 0 points Origin of ICH : Supratentorial= 0 points Age: > 80 =1 points Final score : 1 points SAH H&H score: [] 0 No symptoms at all. minimal headache and slight nuchal rigidity [x] 1 Asymptomatic, mild headache, slight nuchal rigidity [] 2 Moderate to severe headache, nuchal rigidity, no neurologic deficit other than cranial nerve palsy [] 3 Drowsiness/confusion, with mild focal neurologic deficits [] 4 Stupor; moderate to severe hemiparesis [] 5 Coma, decerebrate posturing [facility] within last 24 hours- BMP: No results for input(s): NA, K, CL, CO2, BUN, CREATININE, CALCIUM, MG, PHOS in the last 72 hours. LFTs: No results for input(s): AST, ALT, PROT, ALBUMIN, BILITOT, BILIRUBINU, ALKPHOS,LIPASE in the last 72 hours. Glucose: No results for input(s): GLUCOSE, POCGLU, BHYDRXBUT in the last 72 hours. Procal: No results for input(s): PROCAL in the last 72 hours. CBC: No results for input(s): WBC, HGB, HCT, PLT, MCV, RDW in the last 72 hours. ABGs: No results for input(s): PHART, RMH3BTU, PO2ART, LDM8OCO, SO2ART, H6BLPIAF in thelast 72 hours. Lactic Acid: No results for input(s): LACTATE in the last 72 hours. INR: No results for input(s): INR in the last 72 hours. Cardiac Injury Profile: No results for input(s): CKTOTAL, CKMB, TROPONINI in the last 72 hours. Labs in Last 3 months: No results found for: TSH, VITD25, PSA, INR, GLUF Microbiology- 07/29/24 UA pending Imaging- 07/29/24 CTH pending 07/29/24 CTA head/neck pending 07/29/24 CXR pending 07/29/24 XR abd pending Assessment and Plan: Active Problems: There are no active Hospital Problems. R intraparenchymal hemorrhage Hx of TIA -Braden CTH showed R intraparenchymal hemorrhage in postcentral gyrus - CTA head/neck showed no LVO or aneurysm -CTH and CTA head/neck ordered -MRI/MRV ordered - CXR and KUB ordered for clearance -TTE ordered -trend trops -SBP goal <140 - cardene gtt -NS gtt at 75cc/hr -APAP PRN -seizure and aspiration precautions -NCC following Leukocytosis -likely 2/2 to above -WBC 11.2 without bandemia - afebrile - nontoxic appearing -CXR neg -procal and UA ordered - will defer further infectious workup at this time NAGMA -bicarb 19, AG 12 -unsure of underlying cause with Cl 106, no GI losses, and unlikely RTA -if continues can do further workup Hx of HTN, HLD, CAD c/b [place] s/p stents, CHF (EF 25%) s/p ICD -takes spironolactone 12.5mg daily, coreg 6.25mg BID, and losartan 50mg daily at home - hold PO antihypertensives and use cardene gtt for SBP goal <140 -takes ASA 81mg at home - hold d/t bleed -takes nitroglycerin SL PRN at home - hold in setting of ICH -takes simvastatin 40mg at bedtime - nonformulary - start atorvastatin 20mg daily -TTE 06/01/2017 showed EF 25%, mod decreased LVSF 2+ TR -TTE ordered Hx of BPH -on finasteride 5mg daily and tamsulosin 0.4mg daily at home - will hold for continued hemodynamic monitoring FEN -NPO without meds - can advance diet to cardiac diet if passes swallow eval -bedside nursing swallow test -bowel regimen PRN -ESCALATOR MECHANIC consulted Debility -from home with -currently strict bedrest -PT/OT ordered GOC -full code - confirmed that patient would be okay with a intubation, CPR, and defibrillation. Stated that he would trust his to make decisions for him during a crisis situation. Patient stated that it was hard to make a decision because he is not in a critical situation at this time. Explainedthat this was in the event that a critical situation happened and he was unable to tell us. Patientrolandoin expressed that he would trust his to make decisions. -NOK Lily -palliative care consulted as patient and have questions about GOC even though patient has living will GI Prophylaxis: Pantoprazole PO DVT Prophylaxis: SCDs BMI Classification: There is no height or weight on file to calculate BMI. normal BMI 18.5-24.9 Disposition: Admit to ICU Critical Care Time: 45 minutes Total critical care time caring for this patient with life threatening, unstable organ failure, including direct patient contact, management of life support systems, review of data including imaging and labs, discussions with other team members and physicians, excluding procedures. [1] Past Medical History: Diagnosis Date CAD (coronary artery disease) Hyperlipidemia ICD (implantable cardioverter-defibrillator), single, in situ 12/29/2011 LV dysfunction Old [place] (myocardial infarction) 2012 Anterior Presence of stent in LAD coronary artery 07/05/02 : AYLIN to LAD, 10/18/11: AYLIN to ISS LAD [2] Past Surgical History: Procedure Laterality Date CARDIAC DEFIBRILLATOR PLACEMENT CARDIAC PROCEDURE CORONARY ANGIOPLASTY [3] Family History Problem Relation Name Age of Onset Heart failure Mother Heart Surgery Mother Pacemaker Brother [4] No Known Allergies Cosigned by Heather Morton DO at 07/29/2024 6:33 PM EDT Associated attestation - Heather Morton DO - 07/29/2024 6:33 PM EDT I reviewed the history, the documented findings, and performed a physical exam of the patient. I agree with FERTILIZING MACHINE OPERATOR Marion Lee's assessment, and we discussed the management of the patient. See orders.Awake alert. Repeat scans here. Follow [facility] order set[id number] Attestation signed by Heather Morton DO at 07/29/2024 6:33 PM I reviewed the history, the documented findings, and performed a physical exam of the patient. I agree with MOODY Lee's assessment, and we discussed the management of the patient. See orders. Awake alert. Repeat scans here. Follow [facility] order set. Internal Medicine: MICU Initial History and Physical Name: Efraín Meredith : 1935(88 y.o.) Date: 07/29/24 Attending: Dr. Heather Morton Subjective: Chief Complaint: L arm and hand numbness HPI: Patient is a 88 y/o male with a PMHx of HTN, HLD, CAD c/b [place] s/p stent, CHF (EF 25% in 2018) s/p ICD, TIA, BPH. Presented to [place] ED after intermittent LUE numbness x5 days. It would resolve on its own but had started to progress in duration when it did occur. felt that speech was slurred and encouraged him to come in. VSS on arrival. Lab work significant for WBC 11.2, NAGMA (bicarb 19.8, AG 12), and trop 17. CTH showed intraparenchymal hemorrhage in R postcentral gyrus. CTA neg. Transferred to [place] [address] ICU for further ICH management. ICH 1. Upon arrival, VSS stable. NIH 4 for LUE drift, LUE ataxia, dysarthria, bilateral LUQ visual deficit. Taken for stat CTH and CTA since unable to access previous studies. Medical History[1] Surgical History[2] Family History[3] Social History Socioeconomic History Marital status: Spouse name: Not on file Number of children: Not on file Years of education: Not on file Highest education level: Not on file Occupational History Not on file Tobacco Use Smoking status: Never Smokeless tobacco: Never Substance and Sexual Activity Alcohol use: Yes Comment: occasional/wine or beer Drug use: No Comment: Caffeine: 1 and a half cups of coffee a day Sexual activity: Not on file Other Topics Concern Not on file Social History Narrative Not on file Social Drivers of Health Financial Resource Strain: Not on file Food Insecurity: Not on file Transportation Needs: Not on file Physical Activity: Not on file Stress: Not on file Social Connections: Not on file Intimate Partner Violence: Not on file Housing Stability: Not on file Allergies[4] Prior to Admission medications Medication Sig Start Date End Date Taking? Authorizing Provider aspirin 81 MG EC tablet Take 81 mg by mouth daily. Historical Provider, carvedilol (Coreg) 6.25 MG tablet Take 1 tablet (6.25 mg) by mouth 2 times daily (with meals). 02/23/24 YVETTE Redmond CNP carvedilol (Coreg) 6.25 MG tablet Take 1 tablet (6.25 mg) by mouth 2 times daily (with meals). 06/04/24 Zhou Calle MD finasteride (Proscar) 5 MG tablet Take 5 mg by mouth daily. 03/14/24 Historical Provider, losartan (Cozaar) 50 MG tablet Take 1 tablet (50 mg) by mouth daily. 02/23/24 YVETTE Redmond CNP losartan (Cozaar) 50 MG tablet Take 1 tablet (50 mg) by mouth daily. 06/08/24 YVETTE Siddiqui CNP nitroglycerin (Nitrostat) 0.[address] 0.4 mg under the tongue as needed. 11/19/16 Historical Provider, simvastatin (Zocor) 40 MG tablet Take 1 tablet (40 mg) by mouth Nightly. 02/23/24 YVETTE Redmond CNP simvastatin (Zocor) 40 MG tablet Take 1 tablet (40 mg) by mouth Nightly. 06/04/24 Zhou Calle MD spironolactone (Aldactone) 25 MG tablet Take 0.5 tablets (12.5 mg) by mouth daily. 02/23/24 YVETTE Redmond CNP spironolactone (Aldactone) 25 MG tablet Take 0.5 tablets (12.5 mg) by mouth daily. 06/08/24 YVETTE Siddiqui CNP tamsulosin (Flomax) 0.4 MG 24 hr capsule Take 0.4 mg by mouth 2 times daily. 03/20/24 Historical Provider, Objective: Oxygen Delivery: VITALS: BP 137/72 (BP Location: Left arm, Patient Position: Lying) Pulse 74 Temp 36.2 ?C (97.2 ?F) (Temporal) Resp 23 SpO2 98% CURRENT PULSE OXIMETRY: SpO2: 98 % Review of Systems Constitutional: Negative for appetite change and fatigue. Respiratory: Negative for cough and shortness of breath. Cardiovascular: Negative for chest pain. Gastrointestinal: Negative for abdominal pain, constipation, diarrhea, nausea and vomiting. Musculoskeletal: Negative for neck pain. Neurological: Positive for numbness and headaches. Negative for weakness and light-headedness. Intermittent numbness of LUE but not currently having Constitutional: General Appearance [x]WDWN []Obese []Cachectic []Thin []Ill Eyes: Inspection of Pupils/Irises Pupils round and react: [x]Yes []No Sclera: []Icteric [x]Non-Icteric Inspection of Conjunctiva/Lids Conjunctiva: []Injected [x]Non-Injected Lids: [x]Intact []Lesion Present Wearing glasses, bilateral LUQ hemianopia ENT/Mouth: External Inspection of ears/nose [x (more content not included)...[facility]06-15-[facility] History and physical note* Marion Lee, IT PORTFOLIO MANAGER - [facility] - 07/29/2024 4:22 PM EDT Images from the original note were not included. Internal Medicine: MICU Initial History and Physical Name: Efraín Meredith : 1935(88 y.o.) Date: 07/29/24 Attending: Dr. Heather Morton Subjective: Chief Complaint: L arm and hand numbness HPI: Patient is a 88 y/o male with a PMHx of HTN, HLD, CAD c/b [place] s/p stent, CHF (EF 25% in 2018) s/p ICD, TIA, BPH. Presented to [place] ED after intermittent LUE numbness x5 days. It would resolve on its own but had started to progress in duration when it did occur. felt that speech was slurred and encouraged him to come in. VSS on arrival. Lab work significant for WBC 11.2, NAGMA (bicarb 19.8, AG 12), and trop 17. CTH showed intraparenchymal hemorrhage in R postcentral gyrus. CTA neg. Transferred to [place] [address] ICU for further ICH management. ICH 1. Upon arrival, VSS stable. NIH 4 for LUE drift, LUE ataxia, dysarthria, bilateral LUQ visual deficit. Taken for stat CTH and CTA since unable to access previous studies. Medical History[1] Surgical History[2] Family History[3] Social History Socioeconomic History Marital status: Spouse name: Not on file Number of children: Not on file Years of education: Not on file Highest education level: Not on file Occupational History Not on file Tobacco Use Smoking status: Never Smokeless tobacco: Never Substance and Sexual Activity Alcohol use: Yes Comment: occasional/wine or beer Drug use: No Comment: Caffeine: 1 and a half cups of coffee a day Sexual activity: Not on file Other Topics Concern Not on file Social History Narrative Not on file Social Drivers of Health Financial Resource Strain: Not on file Food Insecurity: Not on file Transportation Needs: Not on file Physical Activity: Not on file Stress: Not on file Social Connections: Not on file Intimate Partner Violence: Not on file Housing Stability: Not on file Allergies[4] Prior to Admission medications Medication Sig Start Date End Date Taking? Authorizing Provider aspirin 81 MG EC tablet Take 81 mg by mouth daily. Historical Provider, carvedilol (Coreg) 6.25 MG tablet Take 1 tablet (6.25 mg) by mouth 2 times daily (with meals). 02/23/24 YVETTE Redmond CNP carvedilol (Coreg) 6.25 MG tablet Take 1 tablet (6.25 mg) by mouth 2 times daily (with meals). 06/04/24 Zhou Calle MD finasteride (Proscar) 5 MG tablet Take 5 mg by mouth daily. 03/14/24 Historical Provider, losartan (Cozaar) 50 MG tablet Take 1 tablet (50 mg) by mouth daily. 02/23/24 YVETTE Redmond CNP losartan (Cozaar) 50 MG tablet Take 1 tablet (50 mg) by mouth daily. 06/08/24 YVETTE Siddiqui CNP nitroglycerin (Nitrostat) 0.[address] 0.4 mg under the tongue as needed. 11/19/16 Historical Provider, simvastatin (Zocor) 40 MG tablet Take 1 tablet (40 mg) by mouth Nightly. 02/23/24 YVETTE Redmond CNP simvastatin (Zocor) 40 MG tablet Take 1 tablet (40 mg) by mouth Nightly. 06/04/24 Zhou Calle MD spironolactone (Aldactone) 25 MG tablet Take 0.5 tablets (12.5 mg) by mouth daily. 02/23/24 Chantel Huntley APRN - [facility] spironolactone (Aldactone) 25 MG tablet Take 0.5 tablets (12.5 mg) by mouth daily. 06/08/24 Jessica Velasco APRN - [facility] tamsulosin (Flomax) 0.4 MG 24 hr capsule Take 0.4 mg by mouth 2 times daily. 03/20/24 Historical Provider, Objective: Oxygen Delivery: VITALS: BP 137/72 (BP Location: Left arm, Patient Position: Lying) Pulse 74 Temp 36.2 C (97.2 F) (Temporal) Resp 23 SpO2 98% CURRENT PULSE OXIMETRY: SpO2: 98 % Review of Systems Constitutional: Negative for appetite change and fatigue. Respiratory: Negative for cough and shortness of breath. Cardiovascular: Negative for chest pain. Gastrointestinal: Negative for abdominal pain, constipation, diarrhea, nausea and vomiting. Musculoskeletal: Negative for neck pain. Neurological: Positive for numbness and headaches. Negative for weakness and light-headedness. Intermittent numbness of LUE but not currently having Constitutional: General Appearance [x]WDWN []Obese []Cachectic []Thin []Ill Eyes: Inspection of Pupils/Irises Pupils round and react: [x]Yes []No Sclera: []Icteric [x]Non-Icteric Inspection of Conjunctiva/Lids Conjunctiva: []Injected [x]Non-Injected Lids: [x]Intact []Lesion Present Wearing glasses, bilateral LUQ hemianopia ENT/Mouth: External Inspection of ears/nose [x] Normal [] Scar/Lesion/Mass Inspection of teeth/lips/gums Dentition: [][place] Teeth [x]Dentures Lips/Gums: [x]Intact []Lesion Present Mucosa: [x][place] [x]Moist []Dry Neck: External Appearance Overall Appearance: [x]Normal []Lesion/Mass/Crepitus Present Trachea midline: []Yes []No Thyroid []Normal []Enlarged []Tender []Mass []Absent Respiratory: Respiratory effort []Labored [x]Non-Labored [] Mechanically-Ventilated Auscultation [x]Clear []Crackles []Wheezes []Rhonchi On RA Cardiovascular: Auscultation Rate: [x]Regular []Irregular []Tachycardia []Bradycardia Rhythm: [x]Regular []Irregular Murmur: []Present [x]Absent Extremities Peripheral Edema: []Present [x]Absent Varicosities: []Present []Absent Gastrointestinal: Abdomen Palpation: [x]Soft []Firm []Tender [x]Non-Tender []Distended [x]Non-distended Mass: []Present []Absent Bowel Sounds: [x]Present []Absent Hernia: []Present []Absent Liver/Spleen: []Hepatosplenomegaly [x]Organomegaly Absent Musculoskeletal: Inspection of Digits and Nails Cyanosis: []Present [x]Absent Clubbing: []Present [x]Absent Ischemia: []Present [x]Absent Infection: []Present [x]Absent Extremities ORTEZ Equally: ([x]RUE [x]RLE [x]LUE [x]LLE) Strength/Tone: Intact and Normal ([x]RUE [x]RLE [x]LUE [x]LLE) Skin: Inspection [x]Normal []Rash []Lesion []Ulcer Palpation [x]Warm []Cool [x]Dry []Clammy []Nodules []Induration []Skin-tightening Cap-Refill: [x] <3 sec [] >3 seconds (delayed) Neurologic: GCS EYE: 4 - Opens spontaneously GCS MOTOR: 6 - Obeys commands for movement GCS VERBAL: 5 - Oriented to person, place, time Total GCS: 15 [x] Sensation grossly intact Psych: Mental Status Alert: [x]Yes [] No Oriented: []x0 []X1 []X2 [x]x3 Mood/Affect []Normal []Flat []Agitated []Depressed []Anxious [x]Calm []Sedated []NAD NIHSS: 1a Level of consciousness: 0=alert; keenly responsive 1b. LOC questions: 0=Performs both tasks correctly 1c. LOC commands: 0=Performs both tasks correctly 2. Best Gaze: 0=normal 3. Visual: 1=Partial hemianopia 4. Facial Palsy: 0=Normal symmetric movement 5a. Motor left arm: 1=Drift, limb holds 90 (or 45) degrees but drifts down before full 10 seconds: does not hit bed 5b. Motor right arm: 0=No drift, limb holds 90 (or 45) degrees for full 10 seconds 6a. motor left le=No drift, limb holds 90 (or 45) degrees for full 10 seconds 6b Motor right le=No drift, limb holds 90 (or 45) degrees for full 10 seconds 7. Limb Ataxia: 1=Present in one limb 8. Sensory: 0=Normal; no sensory loss 9. Best Language: 0=No aphasia, normal 10. Dysarthria: 1=Mild to moderate, patient slurs at least some words and at worst, can be understood with some difficulty 11. Extinction and Inattention: 0=No abnormality 12. Distal motor function: 0=Normal Total: 4 ICH score: GCS score at presentation: 13-15=0 points ICH volume (ABC/2 cm3): <30 cc= 0 points Intraventricular hemorrhage: No= 0 points Origin of ICH : Supratentorial= 0 points Age: > 80 =1 points Final score : 1 points SAH H&H score: [] 0 No symptoms at all. minimal headache and slight nuchal rigidity [x] 1 Asymptomatic, mild headache, slight nuchal rigidity [] 2 Moderate to severe headache, nuchal rigidity, no neurologic deficit other than cranial nerve palsy [] 3 Drowsiness/confusion, with mild focal neurologic deficits [] 4 Stupor; moderate to severe hemiparesis [] 5 Coma, decerebrate posturing [facility] within last 24 hours- BMP: No results for input(s): NA, K, CL, CO2, BUN, CREATININE, CALCIUM, MG, PHOS in the last 72 hours. LFTs: No results for input(s): AST, ALT, PROT, ALBUMIN, BILITOT, BILIRUBINU, ALKPHOS,LIPASE in the last 72 hours. Glucose: No results for input(s): GLUCOSE, POCGLU, BHYDRXBUT in the last 72 hours. Procal: No results for input(s): PROCAL in the last 72 hours. CBC: No results for input(s): WBC, HGB, HCT, PLT, MCV, RDW in the last 72 hours. ABGs: No results for input(s): PHART, WVB7WHD, PO2ART, GQR5WNJ, SO2ART, U5HDJHVH in thelast 72 hours. Lactic Acid: No results for input(s): LACTATE in the last 72 hours. INR: No results for input(s): INR in the last 72 hours. Cardiac Injury Profile: No results for input(s): CKTOTAL, CKMB, TROPONINI in the last 72 hours. Labs in Last 3 months: No results found for: TSH, VITD25, PSA, INR, GLUF Microbiology- 07/29/24 UA pending Imaging- 07/29/24 CTH pending 07/29/24 CTA head/neck pending 07/29/24 CXR pending 07/29/24 XR abd pending Assessment and Plan: Active Problems: There are no active Hospital Problems. R intraparenchymal hemorrhage Hx of TIA -Braden CTH showed R intraparenchymal hemorrhage in postcentral gyrus - CTA head/neck showed no LVO or aneurysm -CTH and CTA head/neck ordered -MRI/MRV ordered - CXR and KUB ordered for clearance -TTE ordered -trend trops -SBP goal <140 - cardene gtt -NS gtt at 75cc/hr -APAP PRN -seizure and aspiration precautions -NCC following Leukocytosis -likely 2/2 to above -WBC 11.2 without bandemia - afebrile - nontoxic appearing -CXR neg -procal and UA ordered - will defer further infectious workup at this time NAGMA -bicarb 19, AG 12 -unsure of underlying cause with Cl 106, no GI losses, and unlikely RTA -if continues can do further workup Hx of HTN, HLD, CAD c/b [place] s/p stents, CHF (EF 25%) s/p ICD -takes spironolactone 12.5mg daily, coreg 6.25mg BID, and losartan 50mg daily at home - hold PO antihypertensives and use cardene gtt for SBP goal <140 -takes ASA 81mg at home - hold d/t bleed -takes nitroglycerin SL PRN at home - hold in setting of ICH -takes simvastatin 40mg at bedtime - nonformulary - start atorvastatin 20mg daily -TTE 06/01/2017 showed EF 25%, mod decreased LVSF 2+ TR -TTE ordered Hx of BPH -on finasteride 5mg daily and tamsulosin 0.4mg daily at home - will hold for continued hemodynamic monitoring FEN -NPO without meds - can advance diet to cardiac diet if passes swallow eval -bedside nursing swallow test -bowel regimen PRN -ESCALATOR MECHANIC consulted Debility -from home with -currently strict bedrest -PT/OT ordered GOC -full code - confirmed that patient would be okay with a intubation, CPR, and defibrillation. Stated that he would trust his to make decisions for him during a crisis situation. Patient stated that it was hard to make a decision because he is not in a critical situation at this time. Explainedthat this was in the event that a critical situation happened and he was unable to tell us. Patientismael expressed that he would trust his to make decisions. -NOK Lily -palliative care consulted as patient and have questions about GOC even though patient has living will GI Prophylaxis: Pantoprazole PO DVT Prophylaxis: SCDs BMI Classification: There is no height or weight on file to calculate BMI. normal BMI 18.5-24.9 Disposition: Admit to ICU Critical Care Time: 45 minutes Total critical care time caring for this patient with life threatening, unstable organ failure, including direct patient contact, management of life support systems, review of data including imaging and labs, discussions with other team members and physicians, excluding procedures. [1] Past Medical History: Diagnosis Date CAD (coronary artery disease) Hyperlipidemia ICD (implantable cardioverter-defibrillator), single, in situ 12/29/2011 LV dysfunction Old [place] (myocardial infarction) 2011 Anterior Presence of stent in LAD coronary artery 07/05/02 : AYLIN to LAD, 10/18/11: AYLIN to ISS LAD [2] Past Surgical History: Procedure Laterality Date CARDIAC DEFIBRILLATOR PLACEMENT CARDIAC PROCEDURE CORONARY ANGIOPLASTY [3] Family History Problem Relation Name Age of Onset Heart failure Mother Heart Surgery Mother Pacemaker Brother [4] No Known Allergies Cosigned by Heather Morton DO at 07/29/2024 6:33 PM EDT Associated attestation - Heather Morton DO - 07/29/2024 6:33 PM EDT I reviewed the history, the documented findings, and performed a physical exam of the patient. I agree with MOODY Lee's assessment, and we discussed the management of the patient. See orders.Awake alert. Repeat scans here. Follow ICH order set. documented in this [facility]06-15-2025 Radiology Diagnostic study note [facility] Imaging Services [address] [place] [address] STROKE CTA Head AND Neck W/Con MR#: [id number] Acct: [id number] Name: EFRAÍN MEREDITH Rep #: [id number] : 1935 M 88 From: Pet er Peer DO PCP: Dr. Devon Stokes DO Status: RE G ER Study:STROKE CTA Head AND Neck W/Con Date of Exam: 07/29/24 Exam# [id number] Ordering Dr: Albin Nugent MD PROCEDURE: STROKE CTA HEAD AND NECK W/CON 07/29/2024 REASON FOR EXAM: NEURO DEFICIT, ACUTE, STROKE SUSPECTED TECHNIQUE: STROKE CTA HEAD AND NECK W/CON Multiplanar and multisequence images were obtained. CONTRAST: Isovue 370 VOLUME: 100 mL One or more dose reduction techniques were used (e.g., Automated exposure control, adjustment of the mA and/or kV according to patient size, use of iterative reconstruction technique). RADIATION DOSE SUMMARY: CTDlvol: 44.99 mGy DLP: 812.98 mGycm FINDINGS: Aortic Arch: Unremarkable Brachiocephalic and Subclavians: Normal RIGHT Carotid: Right CCA: Unremarkable Right ICA: Normal Maximum stenosis (NASCET): 0 % Right ECA: Patent LEFT Carotid: Left CCA: Normal Left ICA: Normal Maximum stenosis (NASCET): 20 % Left ECA: Calculus at the ostium. No flow-limiting stenosis. Vertebrals: Normal RIGHT Vertebral: Intracranial portion is small caliber. LEFT Vertebral: Intracranial portion is patent, small caliber. Anatomy: Unremarkable Aneurysm or avm: None. Anterior cerebral arteries: Patent. Middle cerebral arteries: Patent. Basilar artery: Patent. Posterior cerebral arteries: Patent. Other major branches of the posterior circulation: Patent. Major venous structures: Normal Other findings: Neck: None. 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 CT/STROKE CTA Head AND Neck W/Con IMPRESSION: No large vessel occlusion identified. No aneurysm or AVM identified. Hemorrhagic infarct right parietal lobe Reading Location: [facility] CC: Dr. Albin Nugent MD; Dr. Devon Stokes DO ~ Motion Picture Camera Operator: Signed [facility]06-15-2025 Radiology Diagnostic study note [facility] Imaging Services [address] [place] [address] STROKE Brain/Head without Cont MR#: [id number] Acct: [id number] Name: EFRAÍN MEREDITH Rep #: [id number] : 1935 M 88 From: Yeimy Lozano MD PCP: Dr. Devon Stokes, Status: RE G ER Study:STROKE Brain/Head without Cont Date of Exam: 07/29/24 Exam# [id number] Ordering Dr: Albin Nugent MD EXAM: STROKE BRAIN/HEAD WITHOUT CONT CLINICAL HISTORY: 88 y/o M with NEURO DEFICIT, ACUTE, STROKE SUSPECTED. COMPARISON: None. TECHNIQUE: Routine CT imaging of the head without IV contrast. Additional multiplanar reformats were obtained. Dose reduction techniques were used including intermediate exposure control (AEC),iterative reconstruction technique, and/or mA and/or KV dose adjustments based on patient's size. FINDINGS: Moderate generalized cerebral volume loss with concordant prominence of the ventricles and subarachnoid spaces. Moderate-sized hyperdensity within the right postcentral gyrus. Moderate patchy supratentorialwhite matter hypodensities. The tate-white matter interfaces are otherwise maintained. Prior ocular lens replacements. The visualized paranasal sinuses and mastoids are unremarkable. No acute calvarial fracture or scalp hematoma. CT/STROKE Brain/Head without Cont IMPRESSION: 1. Intraparenchymal hemorrhage within the right postcentral gyrus. 2. Findings of chronic microvascular ischemic changes and age-related changes. Dr. Lozano discussed these findings via telephone with Dr. Nugent at 12:49 p.m. on 07/29/2024. Reading Location: [facility] CC: Dr. Albin Nugent MD; Dr. Devon Stokes, DO ~ Motion Picture Camera Operator: Signed [facility]04-25-2025 Telephone encounter Note* Telephone Encounter - Ary Kraus RN - 06/08/2024 8:30 AM EDT Last OV- 06/04/24 [facility]/22 [id number] Miscellaneous Notes* Telephone Encounter - Ary Kraus RN - 06/08/2024 8:30 AM EDT Last OV- 06/04/24 [facility]- 08/25/22 [facility]ltoum07-03-5013 History of Present illness Narrative* Zhou Calle MD - 06/04/2024 3:15 PM EDT [facility] Cardiology Note Chief Complaint: Chief Complaint Patient presents with Annual Exam History of Present Illness: Efraín Meredith is a 88 y.o. male presents for follow-up status post ICD implantation and the primaryprevention of sudden cardiac . Overall from a cardiac standpoint has no complaints whatsoever.No lightheadedness presyncope or syncope. He was in [place] in the winter and while there in April 10 had an episode of nonsustained ventricular tachycardia accelerating into the ventricular fibrillation zone spontaneously terminating. No significant anginal complaints. His reports he actually he is 50 years old. 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 LV dysfunction Old [place] (myocardial infarction) 2011 Anterior Presence of stent [...] Negative. Psychiatric/Behavioral: Negative. Physical Examination: Vitals: Vitals: 04/21/25 1454 BP: 114/58 BP Location: Left arm [...] 08/25/2022 BUN 18 08/25/2022 CREATININE 1.06 08/25/2022 @[facility]@ Lab Results Component Value Date CHOL 118 [...] on April 10. He will continue his beta- blockade in the form of carvedilol 6.25 mg twice daily. Would not recommend antiarrhythmic drug at this point. Congestive failure: Warm and dry today. He maintains losartan 50, Aldactone 12.5. Coronary artery disease: Status post myocardial infarction. Maintains aspirin 81 and simvastatin 40. No anginal complaints. Given his age she is doing very well. documented in this [facility]01-09-2025 Telephone encounter Note* Telephone Encounter - Li Perdomo RN - 02/23/2024 11:00 AM EST OV 05/2023 [facility] 06/04/24 [id number] Miscellaneous Notes* Telephone Encounter - Li Perdomo RN - 02/23/2024 11:00 AM EST OV 05/2023 [facility] 06/04/24 documented in this [facility]12-18-2024 [facility] Medical Records Department [address] [place] [address] History Physical Exam 02/01/24 1002 MR#: [id number] Acct: [id number] Name: EFRAÍN MEREDITH Rep #: [id number] : 1935 88 From: Mark Muñiz MD PCP: Dr. Devon Stokes, DO [facility] Location: [place] [address] HPI - General General Date of Service: 02/01/24 Chief Complaint: Phimosis HPI Narrative EFRAÍN MEREDITH, is a 88 M who presents for a circumcision for phimosis. [facility] Medical History Loss of hearing Wears glasses [...] Cosigner Signature (if applicable): CC: Dr. Devon Stokes, DO; Dr. Mark Muñiz MD [facility]12-[facility] Telephone encounter Note* Telephone Encounter - Sadie Baker - 01/20/2024 9:18 AM EST Faxed over completed form to [facility] Testing Dept. Paperwork sent to scanning thereafter. [id number] Miscellaneous Notes* Telephone Encounter - Sadie Baker - 01/20/2024 9:18 AM EST Faxed over completed form to [facility] Pre Adm Testing Dept. Paperwork sent to scanning thereafter. * Telephone Encounter - Allyssa Reddy - 01/20/2024 8:37 AM EST Placed completed form on Sadie's desk * Telephone Encounter - Radu Cole RN - 01/19/2024 2:36 PM EST Device info completed on form. Placed on Dr. Calle's desk to review and sign * Telephone Encounter - Sadie Baker - 01/19/2024 1:15 PM EST Received via fax Urgent Stat Fax re: office paperwork and device info. Will give to Nenita to fill out and have doctor sign thereafter. documented in this encounterSReg[facility] EastZimeho72-49-7692 Telephone encounter Note* Telephone Encounter - Allyssa Reddy - 01/20/2024 8:37 AM EST Placed completed form on Sadie's desk [id number] Telephone encounter Note* Telephone Encounter - Radu Cole RN - 01/19/2024 2:36 PM EST Device info completed on form. Placed on Dr. Calle's desk to review and sign [id number] Telephone encounter Note* Telephone Encounter - Sadie Baker - 01/19/2024 1:15 PM EST Received via fax Urgent Stat Fax re: office paperwork and device info. Will give to Nenita to fill out and have doctor sign thereafter. [facility] [id number] Telephone encounter Note* Telephone Encounter - Donna Degroot RN - 09/05/2023 1:31 PM EDT Unscheduled ICD Remote today for VT episode on 09.02.23 @ 10:44 am: sudden onset VT HR 206 bpm, lasting 5 sec then ATP x 1 successfully converted to sinus. Tried to reach patient to see if he had any symptoms, Left message to return call. [id number] Miscellaneous Notes* Telephone Encounter - Donna Degroot RN - 09/05/2023 1:31 PM EDT Unscheduled ICD Remote today for VT episode on 09.02.23 @ 10:44 am: sudden onset VT HR 206 bpm, lasting 5 sec then ATP x 1 successfully converted to sinus. Tried to reach patient to see if he had any symptoms, Left message to return call. documented in this [facility]04-23-2024 History of Present illness Narrative* Zhou Calle MD - 06/07/2023 2:45 PM EDT [facility] Cardiology Note Chief Complaint: Chief Complaint Patient presents with Follow-up History of Present Illness: Efraín Meredith is a 87 y.o. male presents for his yearly follow-up in the setting of cardiomyopathy status post ICD implantation 10 years ago subsequent generator change. He is back from [place] and arrived in time to see the [facility]. There is no angina. He denies lower [...] single, in situ 12/29/2011 LV dysfunction Old [place] (myocardial infarction) 2011 Anterior Presence of stent [...] capsule (12.5 mg) by mouth daily., Disp: 90capsule, Rfl: 1 Review of Systems: Review of [...] will see him yearly. documented in this [place] [address]-15-2024 Telephone encounter Note* Telephone Encounter - Sussy Ybarra - 05/30/2023 9:39 AM EDT Received a call from [facility] lab, stating patients labs are completed and patient is awaiting new orders. I asked for lab results to be faxed to office. Patient had CBC order and lipid (July 2022) done. [facility] [id number] Miscellaneous Notes* Telephone Encounter - Sussy MTripp Ybarra - 05/30/2023 9:39 AM EDT Received a call from [facility] lab, stating patients labs are completed and patient is awaiting new orders. I asked for lab results to be faxed to office. Patient had CBC order and lipid (July 2022) done. documented in this [facility]01-02-2024 Telephone encounter Note* Telephone Encounter - Allyssa Reddy RN - 02/15/2023 8:37 AM EST Fax to PCP office requesting labs. [facility] [id number] Miscellaneous Notes* Telephone Encounter - Allyssa Reddy RN - 02/15/2023 8:37 AM EST Fax to PCP office requesting labs. * Telephone Encounter - Allyssa Reddy RN - 02/11/2023 3:55 PM EST Spouse calling in for refills Carvedilol 6.25 mg daily Losartan 50 mg daily Simvastatin 40 mg daily Spironolactone 25 mg 0.5 tab daily. To [facility] documented in this encounterSma [id number] Telephone encounter Note* Telephone Encounter - Allyssa Reddy RN - 02/11/2023 3:55 PM EST Spouse calling in for refills Carvedilol 6.25 mg daily Losartan 50 mg daily Simvastatin 40 mg daily Spironolactone 25 mg 0.5 tab daily. To [facility] [id number] Miscellaneous Notes* Telephone Encounter - Allyssa Reddy RN - 02/11/2023 3:55 PM EST Spouse calling in for refills Carvedilol 6.25 mg daily Losartan 50 mg daily Simvastatin 40 mg daily Spironolactone 25 mg 0.5 tab daily. To [facility] documented in this [facility]06-20-2023 Telephone encounter Note* Telephone Encounter - Lacey Garza RN - 08/03/2022 11:37 AM EDT TEOFILO [facility] CBC BMP Not seeing a recent lipid [id number] Miscellaneous Notes* Telephone Encounter - Lacey Garza RN - 08/03/2022 11:37 AM EDT TEOF[facility]O [facility] CBC BMP Not seeing a recent lipid documented in this [facility]09-26-2022 Hospital Discharge instructions* Discharge Instructions* Daisy Mg APRN - [facility] - 11/09/2021 7:48 AM EDT Generator Change [...] elastic tape covering your shoulder) remove this whenyou get home. Pull the tape off slowly to avoid skin tears. There will be another dressing underneath-leave this one on for 5 days. You may take a sponge bath up until ___11/11/21 , and then you may shower. Keep dressing onuntil 11/14/21 Observe area for redness, swelling or [...] up appointment is scheduled for: Date Time [address] [place] [address], [address] [place], [address] [address] documented in this [facility] Work Phone: Discharge summary Author Hitesh Dee [facility] Note Date/Time August 20, 2024 10:33 am [facility] [address] [place] [address] / REHABILITATION SERVICES DISCHARGE SUMMARY MR#: [id number] Acct: [id number] Name: EFRAÍN MEREDITH Rep #: [id number] : 1935 88 From: Hitesh Dee PT, ATC Referring Dr.: SAMIA Casas Status: REG RCR Insurance: [facility] [employer] [employer] SELF PAY INSURANCE Patient Information Patient Information: EFRAÍN MEREDITH was seen in my office for initial evaluation on 08/20/24. The following Plan of Care was established for this patient: Anticipated Interventions Patient/Client Instruction: Educate patient on: Condition and Plan of Care For the Purpose of:: To improve self management Last Seen Last Seen: This patient was last seen in our office . Pertinent comments regarding their Physical therapy will appear below: Skilled PT is not necessary at this time. At this point I will be discontinuing this patient from physical therapy. I would be happy to see this patient again in the future if found appropriate by the physician. Thank you! Hitesh Dee, PT, ATC <Electronically signed by Hitesh Dee PT, ATC> 08/20/24 0950 CC: SAMIA Casas; Dr. Devon Stokes, DO ~ [facility] Signed [facility] Work Phone: Evaluation noteNo assessment information available [facility] Work Phone: Evaluation note* Diagnosis Automatic implantable cardioverter-defibrillator in situ [facility] Work Phone: Evaluation note* Diagnosis Hyperlipidemia, unspecified hyperlipidemia type- Primary LV dysfunction Left heart failure Encounter for adjustment or management of cardiac device documented in this encounter [facility] note* Diagnosis Onset Date Resolution Status CHF (congestive heart failure) acute Dupuytren's contracture of both hands acute Heart disease acute Hypertension [facility] Work Phone: Evaluation note* Diagnosis LV dysfunction Left heart failure Hyperlipidemia, unspecified hyperlipidemia type Encounter for adjustment or management of cardiac device Encounter for adjustment or management of cardiac device documented in this encounter [facility] note* Diagnosis LV dysfunction Left heart failure Hyperlipidemia, unspecified hyperlipidemia type Encounter for adjustment or management of cardiac device Encounter for adjustment or management of cardiac device documented in this encounter [facility] note* Diagnosis LV dysfunction Left heart failure Hyperlipidemia, unspecified hyperlipidemia type Encounter for adjustment or management of cardiac device documented in this encounter [facility] note* Diagnosis LV dysfunction Left heart failure Hyperlipidemia, unspecified hyperlipidemia type Encounter for adjustment or management of cardiac device documented in this encounter [facility] note* Diagnosis LV dysfunction Left heart failure Hyperlipidemia, unspecified hyperlipidemia type documented in this encounter [facility] note* Diagnosis LV dysfunction Left heart failure [facility]* Diagnosis Intracranial hemorrhage (HCC)- Primary Unspecified intracranial hemorrhage Intracranial hemorrhage (HCC) Unspecified intracranial hemorrhage LV dysfunction Left heart failure [facility]* Diagnosis Intracranial hemorrhage (HCC)- Primary Unspecified intracranial hemorrhage ICD (implantable cardioverter-defibrillator), single, in situ Coronary artery disease involving [place] coronary artery of [place] heart without angina pectoris documented in this encounter [facility]* Diagnosis Intracranial hemorrhage (HCC)- Primary Unspecified intracranial hemorrhage ICD (implantable cardioverter-defibrillator), single, in situ Coronary artery disease involving [place] coronary artery of [place] heart without angina pectoris Palliative care encounter- Primary Intracranial hemorrhage (HCC) Unspecified intracranial hemorrhage Automatic implantable cardioverter-defibrillator in situ HFrEF (heart failure with reduced ejection fraction) (HCC) documented in this encounter [facility] note* Diagnosis Intracranial hemorrhage (HCC)- Primary Unspecified intracranial hemorrhage ICD (implantable cardioverter-defibrillator), single, in situ Coronary artery disease involving [place] coronary artery of [place] heart without angina pectoris LV dysfunction Left heart failure Encounter for adjustment or management of cardiac device documented in this encounter [facility] note* Diagnosis Intracranial hemorrhage (HCC)- Primary Unspecified intracranial hemorrhage ICD (implantable cardioverter-defibrillator), single, in situ Coronary artery disease involving [place] coronary artery of [place] heart without angina pectoris SAH (subarachnoid hemorrhage) (HCC)- Primary Subarachnoid hemorrhage Numbness and tingling in left hand Disturbance of skin sensation Encounter for adjustment or management of cardiac device documented in this encounter [facility] note* Diagnosis Intracranial hemorrhage (HCC)- Primary Unspecified intracranial hemorrhage ICD (implantable cardioverter-defibrillator), single, in situ Coronary artery disease involving [place] coronary artery of [place] heart without angina pectoris Subarachnoid hemorrhage (HCC)- Primary Subarachnoid hemorrhage Seizures (HCC) Other convulsions Encounter for adjustment or management of cardiac device documented in this encounter [facility] note* Diagnosis Intracranial hemorrhage (HCC)- Primary Unspecified intracranial hemorrhage ICD (implantable cardioverter-defibrillator), single, in situ Coronary artery disease involving [place] coronary artery of [place] heart without angina pectoris Focal epilepsy (CMS/HCC) (HCC)- Primary Subarachnoid hemorrhage (HCC) Subarachnoid hemorrhage Seizures (HCC) Other convulsions Long-term use of high-risk medication Encounter for adjustment or management of cardiac device documented in this encounter [facility] Discharge instructionsAmbulatory Orders* Orthopedics Location: None [facility] Work Phone: Rejmoe for referral (narrative)No reason for referral information availableWChillicothe [facility] Work Phone: Reason for visit Narrative* Auth/Cert (Routine) Specialty Diagnoses / Procedures Referred By Contac t Referred To Contact Diagnoses Intracranial hemorrhage (HCC) intraparenchymal hemorrhage Procedures . Heather Morton DO [address] [facility], [address] [place] [address] Phone: tel: fax: [facility] Surgical Trauma Neuro Intensive Care Unit ST[facility] ICU T[address] [place] [id number] Phone: tel: Referral ID Status Reason Start Date Expiration Date Visits Re quested Visits Authorized [id number] 1 1 [facility] Advance Directives Advance Directive Response Recorded Date/ Time Living Will No September 11, 2015 12:20pm Power of Intellectual Property Lawyer No September 10 12:20pm Latest Code Status on File Code Status Date Activated Date Inactivated Comments Full Code 11/09/2021 7:18 AM Healthcare Agents on File Name Relationship Healthcare Agent Relationship Communication Lily Meredith Spouse Health Care Agent [email or web address] Healthcare Agents on File Name Relationship Healthcare Agent Relationship Communication Lily Meredith Spouse Health Care Agent [email or web address] Healthcare Agents on File Name Relationship Healthcare Agent Relationship Communication Lily Meredith Spouse Health Care Agent [email or web address] Healthcare Agents on File Name Relationship Healthcare Agent Relationship Communication Lily Meredith Spouse Health Care Agent [email or web address] Healthcare Agents on File Name Relationship Healthcare Agent Relationship Communication Lily Meredith Spouse Health Care Agent [email or web address] Advance Directive Response Recorded Date/ Time Do you have a Healthcare Power of Intellectual Property Lawyer? Yes July 29, 2024 12:37pm Name of Medical Power of Intellectual Property Lawyer Lily July 29, 2024 12:37pm Date Activated Date Inactivated Comments 07/29/2024 5:04 PM 08/01/2024 8:39 PM Healthcare Agents on File Name Relationship Healthcare Agent Relationship Communication Lily Meredith Spouse Health Care Agent [email or web address] Date Activated Date Inactivated Comments 07/29/2024 5:04 PM 08/01/2024 8:39 PM Healthcare Agents on File Name Relationship Healthcare Agent Relationship Communication Lily Meredith Spouse Health Care Agent [email or web address] Healthcare Agents on File Name Relationship Healthcare Agent Relationship Communication Lily Meredith Spouse Health Care Agent [email or web address] Healthcare Agents on File Name Relationship Healthcare Agent Relationship Communication Lily Meredith Spouse Health Care Agent [email or web address] Healthcare Agents on File Name Relationship Healthcare Agent Relationship Communication Lily Meredith Spouse Health Care Agent [email or web address] Healthcare Agents on File Name Relationship Healthcare Agent Relationship Communication Lily Meredith Spouse Health Care Agent [email or web address] Healthcare Agents on File Name Relationship Healthcare Agent Relationship Communication Lily Meredith Spouse Health Care Agent [email or web address] Healthcare Agents on File Name Relationship Healthcare Agent Relationship Communication Lily Meredith Spouse Health Care Agent [email or web address] Healthcare Agents on File Name Relationship Healthcare Agent Relationship Communication Lily Meredith Spouse Health Care Agent 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, PREV PATIENT IN [place] Reason for Visit CHF (congestive hear t failure) Dupuytren's contracture of both hands Heart disease Hypertension Chief Complaint Admit Date stroke alert July 29, 2024 12:2 8pm Chief Complaint Admit Date stroke alert July 29, 2024 12:2 8pm HOSP FOLLOW UP August 07, 2024 8:53 am Chief Complaint Admit Date stroke alert July 29, 2024 12:2 8pm HOSP FOLLOW UP August 07, 2024 8:53 am Amb Documentation August 15, 2024 2:05p m UPPER EXT RX HERE August 20, 2024 8:37a m Reason for Visit Admit Date Hospital discharge follow-up August 07, 2024 8:53am Skin lesion of scalp August 07, 2024 8:5 3am Subarachnoid hemorrhage August 07, 2024 8:53am Weakness of left upper extremity August 072024 8:53am Dupuytren's contracture of both hands Ju ne 2024 8:53am Chief Complaint Admit Date stroke alert July 29, 2024 12:2 8pm HOSP FOLLOW UP August 07, 2024 8:53 am Amb Documentation August 15, 2024 2:05p m UPPER EXT RX HERE August 20, 2024 8:37a m DEHYDRATED AND PAIN IN FOOT September 04, 025 7:21am Reason for Visit Admit Date Hospital discharge follow-up August 07, 2024 8:53am Skin lesion of scalp August 07, 2024 8:5 3am Subarachnoid hemorrhage August 07, 2024 8:53am Weakness of left upper extremity August 072024 8:53am Dupuytren's contracture of both hands Ju ne 2024 8:53am Heart disease September 04, 2024 7:21 am Reason for Visit Admit Date Hospital discharge follow-up August 07, 2024 8:53am Skin lesion of scalp August 07, 2024 8:5 3am Subarachnoid hemorrhage August 07, 2024 8:53am Weakness of left upper extremity August 072024 8:53am Dupuytren's contracture of both hands Ju ne 2024 8:53am CHF (congestive heart failure) August 7:21am Peripheral edema September 04, 2024 7:21 am Chief Complaint Admit Date stroke alert July 29, 2024 12:2 8pm HOSP FOLLOW UP August 07, 2024 8:53 am Amb Documentation August 15, 2024 2:05p m UPPER EXT RX HERE August 20, 2024 8:37a m DEHYDRATED AND PAIN IN FOOT September 04 025 7:21am BLOOD WORK FOLLOW UP October 23, 2024 11:11am Reason for Visit Admit Date Hospital discharge follow-up August 07, 2024 8:53am Skin lesion of scalp August 07, 2024 8:5 3am Subarachnoid hemorrhage August 07, 2024 8:53am Weakness of left upper extremity August 072024 8:53am Dupuytren's contracture of both hands Ju ne 2024 8:53am CHF (congestive heart failure) August 7:21am Peripheral edema September 04, 2024 7:21 am Hyperbilirubinemia October 23, 2024 11:11am Hypercalcemia October 23, 2024 11:11am Hypertension October 23, 2024 11:11am Peripheral edema October 23, 2024 11:11am Additional Source Comments Goals (unrecognized section and [...] section and content) DATE CREATED AUTHOR 11/15/2021 [employer] DATE CREATED AUTHOR AUTHOR'S ORGANIZ ATION 09/10/2024 [facility] DATE CREATED AUTHOR AUTHOR'S ORGANIZ ATION 10/22/2024 [employer] [facility] Scheduled Active and Recently Administ ered Medications [...] or Central Line = 20 mL/lumen, Pre-Procedure(Cath) Scheduled Medication Order 07/30/2024 07/31/2024 08/01/2024 atorvastatin (Lipitor) tablet 20 mg 20 mg, Oral, Nightly, First dose on Tue07/29/24 at 2100, Substituted for simvastatin (Zocor). 2039 (Given - Provider: Lisa Amin RN) 2013 (Given - Provider: Natanael Daly RN) levETIRAcetam (Keppra) tablet 500 mg 500 mg, Oral, 2 times daily, First dose on Tue08/01/24 at 1230, Do not crush or chew. 1230 (Canceled Entry - Provider: Automatic Discharge Provider - Comment: Automatically canceled at discontinue of medication order) mupirocin (Bactroban) 2 % ointment 1 Application 1 Application, Nasal, 2 times daily, First dose on 07/29/24 at 2100, For 5 days, Indications: MRSA Nasal Decolonization 0746 (Given - Provider: Loly Muhammad, RN)2040 (Given - Provider: Lisa Amin RN) 1709 (Not Given - Provider: Joan Mendez RN - Reason: Patient/family refused)2013 (Not Given - Provider: Natanael Daly RN - Reason: Patient/family refused) 1004 (Not Given - Provider: Joan Mendez RN - Reason: Patient/family refused) pantoprazole (ProtoNix) 40 mg in sodium chloride (PF) 0.9 % 10 mL injection(Linked Group 1) 40 mg, IntraVENous, Administer over 2 Minutes, Nightly, First dose on 07/29/24 at 2100, Give only if unable to tolerate po. 2039 (See Alternative - Provider: Lisa Amin RN) 2013 (See Alternative - Provider: Natanael Daly RN) pantoprazole (ProtoNix) EC tablet 40 mg(Linked Group 1) 40 mg, Oral, Nightly, First dose on 07/29/24 at 2100, Do not crush, chew, or split. 2039 (Given - Provider: Lisa Amin RN) 2013 (Given - Provider: Natanael Daly RN) sodium chloride 0.9% (NS) flush 10 mL 10 mL, IntraVENous, Every 12 hours scheduled (2 times per day), First dose on 07/29/24 at 2100 0746 (Given - Provider: Loly Muhammad, PAULINE)2039 (Not Given - Provider: Lisa Amin RN - Reason: IV Fluids Infusing) 1709 (Given - Provider: Joan Mendez RN - Comment: patient out walking in unit often today)2013 (Not Given - Provider: Natanael Daly RN - Reason: Patient/family refused) 0900 (Canceled Entry - Provider: Automatic Discharge Provider - Comment: Automatically canceled at discontinue of medication order) Continuous Medication Order 07/30/2024 07/31/2024 08/01/2024 niCARdipine (Cardene) infusion 20mg in 0.9 % sodium chloride 200mL (premix) 2.5-15 mg/hr (25-150 mL/hr), IntraVENous, Continuous, Starting on Tue07/29/24 at 1715, Do not administer through small veins (e.g. those on the dorsum of the hand or wrist); change the infusion site every 12 hours if a peripheral vein is used. If Titrate Infusion? is No: Disregard instructions below. If Titrate infusion? is Yes: Titrate in increments of 2.5 mg/hr no more frequently than every 15 minutes to goal of therapy. premix bag, Titrate Infusion? Yes, Initial Infusion Rate: 5 mg/hr, Goal of Therapy is: SBP less than 140 mmHg, Contact Provider if: Patient is receiving the maximum dose and is not achieving the goal of therapy, If held outside of ordered parameters contact provider for further direction PRN Medication Order 07/30/2024 07/31/2024 08/01/2024 acetaminophen (Tylenol) tablet 1,000 mg 1,000 mg, Oral, Every 6 hours PRN, mild pain (1-3), headaches, fever, Starting on Tue07/29/24 at 1741, Maximum dose of acetaminophen is 4000 mg from all sources in 24 hours. bisacodyl (Dulcolax) suppository 10 mg 10 mg, Rectal, Daily PRN, constipation, Starting on Tue07/29/24 at 1654, 2nd line for treatment of constipation - give scheduled (in addition to 1st line agent) if no bowel movement in past 48 hours fentaNYL (Sublimaze) injection (COMPLETED) IntraVENous, As needed, Starting on Tue08/01/24 at 0957, Intraprocedure 0957 (Given - Provid er: Derek Rashid RN) gadopiclenol (Vueway) injection 7 mL (COMPLETED) 7 mL, IntraVENous, IMG once PRN, contrast, Starting on Tue07/30/24 at 1522, For 1 dose 1540 (Given - Provider: Greg Medellin, RT (R)) iopamidol (Isovue-300) 61 % injection 93 mL 93 mL, Intra-arTERial, IMG once PRN, contrast, Starting on Tue08/01/24 at 1046, For 1 dose lidocaine PF (Xylocaine) 1 % injection (COMPLETED) As needed, Starting on Tue08/01/24 at 0958, Intraprocedure 0958 (Given - Provid er: Juan Altman MD) midazolam (Versed) injection (COMPLETED) IntraVENous, As needed, Starting on Tue08/01/24 at 0958, Intraprocedure 0958 (Given - Provid er: Derek Rashid RN) ondansetron (Zofran) injection 4 mg(Linked Group 2) 4 mg, IntraVENous, Every 6 hours PRN, nausea, vomiting, Starting on 07/29/24 at 1654, 1st Line. Give IV if patient is unable to take orally. If inadequate response within 60 minutes, proceed to next-line agent or contact provider if no further options ordered. ondansetron ODT (Zofran-ODT) disintegrating tablet 4 mg(Linked Group 2) 4 mg, Oral, Every 8 hours PRN, nausea, vomiting, Starting on 07/29/24 at 1654, 1st Line. If inadequate response within 60 minutes, proceed to next-line agent or contact provider if no further options ordered. Patient should allow tablet to dissolve on tongue. Do not remove from blister pack until just before administering. perflutren protein A microsphere (Optison) 3 mL in sodium chloride (PF) 0.9 % 10 mL IV (COMPLETED) 0-10 mL, IntraVENous, IMG once PRN, other, Suboptimal echo image, Starting on Tue07/29/24 at 1659, For 1 dose, CV Procedural Medications, Administer via slow IVP for suboptimal echocardiogram enhancement. May administer as divided doses to reach optimal image enhancement 1100 (Given - Provider: Lauren Bo RN) polyethylene glycol (PEG) 3350 (Miralax) packet 17 g 17 g, Oral, Daily PRN, constipation, Starting on 07/29/24 at 1654, 1st line for treatment of constipation - give scheduled if no bowel movement in past 24 hours. sodium chloride 0.9% (NS) flush 10 mL 10 mL, IntraVENous, PRN, line care, Starting on 07/29/24 at 1654, After every IV line use sodium chloride 0.9% (NS) flush 10 mL 10 mL, IntraVENous, at 5-250 mL/hr, PRN, line care, if patient receiving piggybac infusions and maintaince fluids are not ordered OR KVO fluids to protect IV site / prevent frequent line interruptions/ long duration, Starting on 07/29/24 at 1654, For piggyback infusion, administer at same rate as piggyback for a total of 25 mL into dose field and piggyback rate into rate field of order. If piggyback is infusing at a rate less than 100 mL/hr, enter 25 mL into dose field and 100 mL/hr into rate field of order. For KVO fluids, enter rate of 20 mL/hr or less into rate field of order. Linked Groups Order Group 1: pantoprazole (ProtoNix) EC tablet 40 mgJump to med 40 mg, Oral, Nightly, First dose on 07/29/24 at 2100, Do not crush, chew, or split. Or pantoprazole (ProtoNix) 40 mg in sodium chloride (PF) 0.9 % 10 mL injectionJump to med 40 mg, IntraVENous, Administer over 2 Minutes, Nightly, First dose on 07/29/24 at 2100, Give only if unable to tolerate po. Group 2: ondansetron ODT (Zofran-ODT) disintegrating tablet 4 mgJump to med 4 mg, Oral, Every 8 hours PRN, nausea, vomiting, Starting on 07/29/24 at 1654, 1st Line. If inadequate response within 60 minutes, proceed to next-line agent or contact provider if no further options ordered. Patient should allow tablet to dissolve on tongue. Do not remove from blister pack until just before administering. Or ondansetron (Zofran) injection 4 mgJump to med 4 mg, IntraVENous, Every 6 hours PRN, nausea, vomiting, Starting on 07/29/24 at 1654, 1st Line. Give IV if patient is unable to take orally. If inadequate response within 60 minutes, proceed to next-line agent or contact provider if no further options ordered. Care Teams (unrecognized sec tion and content) Bottle Line Worker Relationship Specialty Start Date End Date Devon Stokes [address] [place] [address] PCP - General 01/22/21 Bottle Line Worker Relationship Specialty Start Date End Date Devon Stokes [address] [place] [address] PCP - General 01/22/21 Team Status: Active Member Role Status Dates Dr. Devon Stokes , DO Family Provider Active Dr. Devon Stokes , DO Primary Care Provider Active Team Status: Inactive Member Role Status Dates Dr. Devon Stokes , DO Primary Care Provider Active THERESA LEMOS Attending Provider, Referring Provi carlos Active Team Status: Inactive Member Role Status Dates Dr. Devon Stokes , DO Primary Care Pr ovider, Attending Provider, Referring Provider Active Team Status: Inactive Member Role Status Dates Dr. Devon Stokes , DO Primary Care Provider, Attend ing Provider Active Bottle Line Worker Relationship Specialty Start Date End Date Devin Devon Collin [address] [place] [address] PCP - General 01/22/21 Bottle Line Worker Relationship Specialty Start Date End Date Devin Devon Collin [address] [place] [address] PCP - General 01/22/21 Bottle Line Worker Relationship Specialty Start Date End Date Devin Devon Collin [address] [place] [address] PCP - General 01/22/21 Bottle Line Worker Relationship Specialty Start Date End Date Devin Devon Collin [address] [place] [address] PCP - General 01/22/21 Bottle Line Worker Relationship Specialty Start Date End Date Devin Devon Collin [address] [place] [address] PCP - General 01/22/21 Bottle Line Worker Relationship Specialty Start Date End Date Devin Devon Collin [address] [place] [address] PCP - General 01/22/21 Bottle Line Worker Relationship Specialty Start Date End Date Devon Stokes [address] [place], [place] [address] PCP - General 01/22/21 Team Status: Active Member Role Status Dates Dr. Devon Stokes DO Primary Care Provider Active Team Status: Inactive Member Role Status Dates Dr. Devon Stokes DO Primary Care Provider Active Start: July 29, 2024 End: July 29, 2024 Albin Nugent MD Emergency Provider Active Star t: July 29, 2024 End: July 29, 2024 Bottle Line Worker Relationship Specialty Start Date End Date Devon Stokes [address] [place] [address] PCP - General 01/22/21 Bottle Line Worker Relationship Specialty Start Date End Date Devon Stokes [address] [place] [address] PCP - General 01/22/21 Team Status: Inactive Member Role Status Dates Dr. Devon Stokes DO Primary Care Provider Active Start: July 29, 2024 End: July 29, 2024 Albin Nugent MD Attending Provider Active Star t: July 29, 2024 End: July 29, 2024 Albin Nugent MD Emergency Provider Active Star t: July 29, 2024 End: July 29, 2024 Team Status: Inactive Member Role Status Dates Dr. Devon Stokes DO Primary Care Provider Active Start: August 07, 2024 End: August 07, 2024 Dr. Devon Stokes DO Referring Provider Active Start: August 07, 2024 End: August 07, 2024 SAMIA Go Attending Provider Active Start: August 07, 2024 End: August 07, 2024 Bottle Line Worker Relationship Specialty Start Date End Date Devon Stokes [address] [place] [address] PCP - General 01/22/21 Team Status: Active Member Role/Relationship Status Dates Dr. Devon Stokes DO Primary Care Provider Active Team Status: Inactive Member Role/Relationship Status Dates Dr. Devon Stokes DO Primary Care Provider Active Start: July 29, 2024 End: July 29, 2024 Albin Nugent MD Attending Provider Active Star t: July 29, 2024 End: July 29, 2024 Albin Nugent MD Emergency Provider Active Star t: July 29, 2024 End: July 29, 2024 Team Status: Inactive Member Role/Relationship Status Dates Dr. Devon Stokes DO Primary Care Provider Active Start: August 07, 2024 End: August 07, 2024 Dr. Devon Stokes DO Referring Provider Active Start: August 07, 2024 End: August 07, 2024 Jennifer Casas , FERTILIZING MACHINE OPERATOR-C Attending Provider Active Start: August 07, 2024 End: August 07, 2024 Team Status: Active Member Role/Relationship Status Dates Dr. Devon Stokes DO Primary Care Provider Active Start: August 15, 2024 Dr. Devon Stokes DO Attending Provider Active Start: August 15, 2024 Team Status: Inactive Member Role/Relationship Status Dates Dr. Devon Stokes DO Primary Care Provider Active Start: August 20, 2024 End: August 20, 2024 Jennifer Ungerer , FERTILIZING MACHINE OPERATOR-C Attending Provider Active Start: August 20, 2024 End: August 20, 2024 Jennifer Ungerer , FERTILIZING MACHINE OPERATOR-C Referring Provider Active Start: August 20, 2024 End: August 20, 2024 Bottle Line Worker Relationship Specialty Start Date End Date Devon Stokes [address] [facility] [place] [address] PCP - General 01/22/21 Team Status: Inactive Member Role/Relationship Status Dates Dr. Devon Stokes DO Primary Care Provider Active Start: September 04, 2024 End: September 04, 2024 Dr. Devon Stokes DO Referring Provider Active Start: September 04, 2024 End: September 04, 2024 Jennifer Casas , FERTILIZING MACHINE OPERATOR-C Attending Provider Active Start: September 04, 2024 End: September 04, 2024 Team Status: Active Member Role/Relationship Status Dates Dr. Devon Stokes DO Primary Care Provider Active Start: September 04, 2024 Jennifer Ungerer , FERTILIZING MACHINE OPERATOR-C Attending Provider Active Start: September 04, 2024 Jennifer Ungerer , FERTILIZING MACHINE OPERATOR-C Referring Provider Active Start: September 04, 2024 Team Status: Inactive Member Role/Relationship Status Dates Dr. Devon Stokse DO Primary Care Provider Active Start: September 04, 2024 End: September 04, 2024 Jennifer Ungerer , FERTILIZING MACHINE OPERATOR-C Attending Provider Active Start: September 04, 2024 End: September 04, 2024 Jennifer Ungerer , FERTILIZING MACHINE OPERATOR-C Referring Provider Active Start: September 04, 2024 End: September 04, 2024 Bottle Line Worker Relationship Specialty Start Date End Date Devon Stokes [address] [place] [address] PCP - General 01/22/21 Bottle Line Worker Relationship Specialty Start Date End Date Devon Stokes [address] [place] [address] PCP - General 01/22/21 Bottle Line Worker Relationship Specialty Start Date End Date Devon Stokes [address] [place], [place] [id number] PCP - General 01/22/21 Team Status: Inactive Member Role/Relationship Status Dates Dr. Devon Stokes DO Primary Care Provider Active Start: October 23, 2024 End: October 23, 2024 Dr. Devon Stokes DO Attending Provider Active Start: October 23, 2024 End: October 23, 2024 Dr. Devon Stokes DO Referring Provider Active Start: October 23, 2024 End: October 23, 2024 Team Status: Active Member Role/Relationship Status Dates Dr. Devon Stokes DO Primary Care Provider Active Start: October 23, 2024 Dr. Devon Stokes DO Attending Provider Active Start: October 23, 2024 Dr. Devon Stokes , Referring Provider Active Start: October 23, 2024 Reason for Visit (unrecogniz ed section and content) Reason Onset Date Comments Med Refill 08/03/2022 Reason Onset Date Comments Med Refill 02/11/2023 Carvedilol/simva statin/losartan/spironolactone Reason Onset Date Comments Orders 05/30/2023 Reason Comments Follow-up Reason Onset Date Comments Other 01/19/2024 Reason Onset Date Comments Med Refill 02/23/2024 Reason Comments Med Refill Reason Comments Annual Exam Reason Onset Date Comments Med Refill 06/08/2024 Reason Comments Hospital Follow-up Brain bleed of unkno wn cause Reason Comments Depression Anxiety Specialty Diagnoses / Procedures Referred By Dawson mcdonald Referred To Contact Palliative Medicine Diagnoses Intracranial hemorrhage (HCC) Automatic implantable cardioverter-defibrilla tor in situ HFrEF (heart failure with reduced ejection fraction) (HCC) Procedures [place] OFFICE/OUTPATIENT NEW HIGH MDM 60 MINUTES Zhou Delong DO [address] [place] [address] Phone: tel: fax: [facility] [address] [place] [address] Phone: tel: fax: Referral ID Status Reason Start Date Expiration Date Visits Requested Visits Authorized [id number] Pending Review Specialty Services Required 08/02/2024 08/02/2025 1 1 Reason Onset Date Comments Med Refill 09/24/2024 Reason Comments Follow-up Hospital Follow-up Brain bleed Reason Comments Follow-up Gets KONG under a car stooping, head feels like being squeezed. Left hand numbness and tingling off/on-->Qiu adjusting medication. Reason Comments New Patient Seizures Specialty Diagnoses / Procedures Referred By Dawson mcdonald Referred To Contact Neurology Diagnoses Subarachnoid hemorrhage (HCC) Seizures (HCC) Procedures [place] OFFICE/OUTPATIENT NEW HIGH MDM 60 MINUTES Juan Altman MD [address] [place] [address] Phone: tel: fax: [facility] [address] [place] [address] Phone: tel: fax: Referral ID Status Reason Start Date Expiration Date Visits Requested Visits Authorized [id number] Pending Review Specialty Services Required 10/12/2024 10/12/2025 1 1 FOR RECORDS PERTAINING TO PATIENTS WHO ARE [...] BE BASED ON THE PRIMARY CLINICAL RECORDS. [facility]. provides no warranty or guarantee of the accuracy or completeness of information in this document.
== END | disposition home or self-care (01) ==
LOC: BIMLAB 11:47
PROVIDERS: PCP Family Medicine; Referring Provider Family Medicine; Visit Provider Family Medicine
DX: E83.52 Hypercalcemia (principal)
CPT/HCPCS: 36415; 80053; 83970